=== PATIENT | male | born 1955 | race Caucasian/White ===

== ENCOUNTER 2022-12-27 10:15 | Emergency (ER) | payer MEDICARE, SELFPAY ==
--- NOTE | ~2022-12-27 | CT_ITS ---
EXAMINATION: CT ANGIOGRAM CHEST CT ANGIOGRAM NECK CLINICAL INFORMATION: Acute chest and neck pain. COMPARISON: None available. TECHNIQUE: Multiple axial images were obtained through the neck as well as the chest after the administration of 70 mL of Omnipaque 350 intravenous contrast. Extensive vascular post-processing including two-dimensional and three-dimensional reformatted images were created and reviewed on an independent workstation. This CT examination was performed using dose optimization techniques as appropriate, variously including the following: *Automated exposure control *Adjustment of mA and/or kV according to patient size (this includes techniques or standardized protocols for targeted exams where dose is matched to indication/reason for exam; i.e. extremities or head) *Use of iterative reconstruction technique DLP: 454 mGy-cm CTA CHEST: LUNGS: The lungs are clear with no evidence of inflammation or nodules. MEDIASTINUM: No mediastinal or hilar lymphadenopathy is seen. The thyroid is unremarkable. VASCULAR: The thoracic aorta appears normal without evidence of aneurysm, dissection or intramural ulcer. A normal two-vessel branching pattern of the aortic arch is seen with a common trunk involving the innominate and left carotid. PLEURA: There is no pleural effusion. No pleural mass or thickening. AXILLA: No lymphadenopathy. UPPER ABDOMEN: Spleen is enlarged measuring at least 13 cm in greatest length. Hepatomegaly is suspected with mildly nodular liver border and decreased attenuation suggesting hepatic steatosis. No adrenal masses are seen. The visualized pancreas appears normal. A benign 0.6 cm left upper pole Bosniak class I renal cyst is noted which requires no additional imaging or follow up. No solid renal masses are seen. OSSEOUS STRUCTURES: Unremarkable. CTA NECK: There is a two-vessel branching pattern of the aortic arch with a common trunk involving the brachiocephalic and left carotid. The great vessels are widely patent including both internal carotid arteries and the carotid bifurcations. There is no evidence of a carotid artery dissection or stenosis. The parotid glands are homogeneous in attenuation. Submandibular glands are normal. No contour abnormality or pathologic enhancement is seen within the oral cavity or pharyngeal mucosal space. No retropharyngeal fluid collection is seen. The parapharyngeal fat is preserved. No extramucosal soft tissue mass or fluid collection is seen. No suspicious cervical lymph nodes are identified by size criteria, enhancement characteristics, or morphology. Some mildly prominent level II-B lymph nodes are seen bilaterally the largest measuring 7 mm in short axis dimension on the right (8:124) The thyroid gland appears normal. The partially visualized mastoid air cells and visualized portions of the paranasal sinuses are well-aerated. Mild cervical spondylosis with degenerative changes at C6-C7. There are no destructive lesions within the osseous structures. CT/CT angio chest aorta IMPRESSION: 1. No evidence of an aortic or carotid dissection. A cause for the patient's acute chest and neck pain has not been found. 2. Incidental note made of hepatosplenomegaly and probable hepatic steatosis with mildly nodular liver border. Fleischner guidelines were followed.
--- NOTE | 2022-12-27 10:25 | ECG_ITS ---
Test Reason : CHEST PAIN Blood Pressure : / mmHG Vent. Rate : 084 BPM Atrial Rate : 084 BPM P-R Int : 144 ms QRS Dur : 094 ms QT Int : 370 ms P-R-T Axes : 000 136 152 degrees QTc Int : 437 ms Poor data quality, interpretation may be adversely affected Suspect limb lead reversal, interpretation assumes no reversal Normal sinus rhythm Lateral infarct , age undetermined Inferior infarct , age undetermined Abnormal ECG No previous ECGs available Referred By: Zhou Elizabeth Electronically Signed By:NUNU RANDOLPH MD
[2022-12-27 10:43] LABS: MANUAL DIFF FLAG NO
[2022-12-27 10:50] VITALS: BP 140/75; PULSE 80; O2SAT 99; BMI 30.1
[2022-12-27 10:54] LABS: INTERNATIONAL NORM RATIO 1.1 (0.9-1.1); Prothrombin Time 13.3 SEC (11.1-13.3)
[2022-12-27 10:56] LABS: Basophils Percent Auto 0.4 % (0-2); Eosinophils Absolute Auto 0.1 X10*3/uL (0.0-0.4); Eosinophils Percent Auto 0.7 % (0-4); Hematocrit 43.5 % (42.0-52.0); Hemoglobin 14.7 g/dl (14.0-18.0); Imm Gran Abs Auto 0.08 X10*3/uL (0.00-0.03); Imm Gran Pct Auto 0.7 % (0.0-0.4); Lymphocytes Absolute Auto 1.5 X10*3/uL (1.2-4.9); Lymphocytes Percent Auto 14.1 % (20-40); Mean Corpuscular HGB Conc 33.8 g/dl (31.0-36.0); Mean Corpuscular Hemoglobin 27.3 pg (27.0-33.0); Mean Corpuscular Volume 80.9 fL (80.0-98.0); Monocytes Absolute Auto 0.7 X10*3/uL (0.1-1.2); Monocytes Percent Auto 6.7 % (2-11); Neutrophils Absolute Auto 8.3 x10*3/uL (2.0-8.3); Neutrophils Percent Auto 77.4 % (45-73); Platelet Count 235 X10*3/uL (160-400); Red Blood Count 5.38 X10*6/uL (4.60-5.80); Red Cell Distribution Width 13.9 % (11.0-16.0); White Blood Count 10.7 X10*3/uL (4.8-10.8)
[2022-12-27 10:57] LABS: Partial Thromboplastin Time 33.5 SEC (26.0-36.4)
[2022-12-27 10:59] LABS: Anion Gap 14 (12-20); Blood Urea Nitrogen 34 mg/dL (9-16); Calcium 10.1 mg/dL (8.4-10.2); Carbon Dioxide 27 mmol/L (22-29); Chloride 99 mmol/L (96-108); Estimated Glomerular Filt Rate 44; Glucose Random 212 mg/dL (60-115); Potassium 3.8 mmol/L (3.3-5.1); Sodium 136 mmol/L (135-145)
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
[2022-12-27 11:09] LABS: Glucose, Whole Blood 187 mg/dL (60-115)
[2022-12-27 11:10] LABS: Troponin-I High Sensitivity 3.7 ng/L (<3.5-35.0)
[2022-12-27 11:16] VITALS: BP 125/72; PULSE 81; RESP 17; TEMP 37.1; O2SAT 96
--- NOTE | 2022-12-27 11:38 | PC.NURSE ---
problem with giving Morphine on time due to issue with PICS. once resolved will give mediation
[2022-12-27] MEDS: iohexoL 350 MG/ML 100 ML INFUS..BTL 70 ML IV (11:42)
[2022-12-27] MEDS: Morphine Sulfate 4 MG/ML CARTRIDGE IVPUSH (11:50)
--- NOTE | 2022-12-27 12:24 | PHA.MEDREC ---
Pharmacy Consult ? Medication Reconciliation Pharmacy has completed the medication reconciliation. Patient with rx bottles at bedside, Azalea Holly spoke directly with patient
[2022-12-27] MEDS: oxyCODONE HCl Immed Release 5 MG TABLET 10 MG PO (15:43)
== END 2022-12-27 16:04 | disposition home or self-care (01) ==
PROVIDERS: Emergency Provider Emergency Medicine
DX: R07.9 Chest pain, unspecified (principal); M54.2 Cervicalgia; R94.4 Abnormal results of kidney function studies; R16.0 Hepatomegaly, not elsewhere classified; E11.9 Type 2 diabetes mellitus without 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s; I10 Essential (primary) hypertension; E78.5 Hyperlipidemia, unspecified; F12.90 Cannabis use, unspecified, uncomplicated; Z79.4 Long term (current) use of insulin; Z79.899 Other long term (current) drug therapy
CPT/HCPCS: 36415; 71275; 80048; 82947; 84484; 85025; 85610; 85730; 93005; 96374; 99284; 99285; J2270; Q9967

== ENCOUNTER → 2022-12-27 10:25 | Outpatient (BNV) | payer MEDICARE, SELFPAY | PROVIDERS: Emergency Provider Emergency Medicine; Visit Provider Internal Medicine Cardiovascular Disease | DX: R07.9 Chest pain, unspecified (principal) | CPT/HCPCS: 93010 ==

== ENCOUNTER 2023-03-12 17:47 | Emergency (ER) | payer MEDICARE, MEDICAID, SELFPAY ==
[2023-03-12 17:56] VITALS: BP 123/68; BP 140/80; PULSE 76; PULSE 80; RESP 18; TEMP 36.7; O2SAT 96; O2SAT 98; BMI 30.9
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
--- NOTE | 2023-03-12 19:02 | PC.NURSE ---
patient ambulated to bathroom with steady gait
== END 2023-03-12 20:28 | disposition home or self-care (01) ==
PROVIDERS: Emergency Provider Emergency Medicine
DX: S13.4XXA Sprain of ligaments of cervical spine, initial encounter (principal); S00.93XA Contusion of unspecified part of head, initial encounter; R51.9 Headache, unspecified; M54.2 Cervicalgia; V43.52XA Car driver injured in collision with other type car in traffic accident, initial encounter; Y93.9 Activity, unspecified; Y92.410 Unspecified street and highway as the place of occurrence of the external cause; Y99.9 Unspecified external cause status
CPT/HCPCS: 70450; 72125; 99284

== ENCOUNTER 2023-07-24 12:29 | Outpatient (REF) | payer MEDICARE, MEDICAID, SELFPAY ==
--- NOTE | ~2023-07-24 | XR_ITS ---
EXAMINATION: XR KNEE, LEFT CLINICAL INFORMATION: Medial left knee pain after twisting knee 3 days ago COMPARISON: None available. TECHNIQUE: Four views of the left knee. FINDINGS: The tricompartment joint space is maintained normal. There is calcification of the menisci. No bony erosive changes, osteophytes or loose body seen. No abnormal joint effusion. Small anterior superior patellar enthesophyte. XR/XR knee LT 3V IMPRESSION: 1. No acute fracture or dislocation. 2. Chondrocalcinosis. 3. Small anterior superior patellar enthesophyte.
== END 2023-07-24 12:30 | disposition home or self-care (01) ==
LOC: HO.HHCX 12:29
PROVIDERS: Visit Provider Emergency Medicine
DX: M25.562 Pain in left knee (principal)
CPT/HCPCS: 73562

== ENCOUNTER 2023-08-16 15:11 | Outpatient (REF) | payer OTHER, SELFPAY ==
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
== END 2023-08-16 15:12 | disposition home or self-care (01) ==
LOC: HO.HHCX 15:11
PROVIDERS: Visit Provider Internal Medicine
DX: M54.50 Low back pain, unspecified (principal); G89.29 Other chronic pain
CPT/HCPCS: 72100

== ENCOUNTER 2023-08-20 12:02 | Outpatient (REF) | payer OTHER, SELFPAY | END 2023-08-20 12:03 | disposition home or self-care (01) | LOC: HO.HOSX 12:02 | PROVIDERS: Visit Provider Orthopaedic Surgery | DX: Z13.89 Encounter for screening for other disorder (principal) ==

== ENCOUNTER 2023-09-24 08:26 | Outpatient (REF) | payer OTHER, SELFPAY ==
[2023-09-24 14:50] LABS: MANUAL DIFF FLAG NO
[2023-09-24 14:55] LABS: Basophils Absolute Auto 0.1 X10*3/uL (0.0-0.2); Basophils Percent Auto 0.9 % (0-2); Eosinophils Absolute Auto 0.3 X10*3/uL (0.0-0.4); Eosinophils Percent Auto 3.2 % (0-4); Hematocrit 49.4 % (42.0-52.0); Hemoglobin 16.7 g/dl (14.0-18.0); Imm Gran Abs Auto 0.03 X10*3/uL (0.00-0.03); Imm Gran Pct Auto 0.4 % (0.0-0.4); Lymphocytes Absolute Auto 2.2 X10*3/uL (1.2-4.9); Lymphocytes Percent Auto 28.3 % (20-40); Mean Corpuscular HGB Conc 33.8 g/dl (31.0-36.0); Mean Corpuscular Volume 82.7 fL (80.0-98.0); Mean Platelet Volume 11.5 fL (9.4-12.4); Monocytes Absolute Auto 0.7 X10*3/uL (0.1-1.2); Monocytes Percent Auto 8.9 % (2-11); NRBC Pct Auto 0.5 /100WBC (0.0-0.2); Neutrophils Absolute Auto 4.6 x10*3/uL (2.0-8.3); Neutrophils Percent Auto 58.3 % (45-73); Platelet Count 225 X10*3/uL (160-400); Red Blood Count 5.97 X10*6/uL (4.60-5.80); Red Cell Distribution Width 13.2 % (11.0-16.0); White Blood Count 7.9 X10*3/uL (4.8-10.8)
[2023-09-24 15:16] LABS: Alanine Aminotransferase 59 U/L (0-40); Albumin Level 4.3 g/dL (3.5-5.0); Alkaline Phosphatase 123 U/L (39-117); Anion Gap 16 (12-20); Aspartate Amino Transferase 41 U/L (5-37); Bilirubin Total 0.6 mg/dL (0.0-1.0); Blood Urea Nitrogen 24 mg/dL (9-16); Calcium 10.1 mg/dL (8.4-10.2); Carbon Dioxide 26 mmol/L (22-29); Chloride 99 mmol/L (96-108); Cholesterol 157 mg/dL (<200); Estimated Glomerular Filt Rate 49; Glucose Random 239 mg/dL (60-115); HDL Cholesterol 59 mg/dL (>40); LDL Cholesterol Calculated 78 mg/dL (<100); Potassium 3.8 mmol/L (3.3-5.1); Sodium 137 mmol/L (135-145); Total Protein 8.5 g/dL (6.5-8.0); Triglycerides 104 mg/dL (<150)
[2023-09-24 15:26] LABS: TSH reflex Free T4 2.92 uIU/mL (0.32-4.0)
[2023-09-24 15:43] LABS: Folate 7.6 ng/mL (> or = 4.0); Vitamin B12 984 pg/mL (200-900)
[2023-09-25 04:24] LABS: HIV AB/AG Nonreactive (Nonreactive); HIV Num 1 0.05 S/CO (0.00-0.99); ~HepC Num1 0.14 S/CO (0.00-0.79); ~Hepatitis C Antibody Nonreactive (Nonreactive)
== END 2023-09-24 08:27 | disposition home or self-care (01) ==
LOC: HO.CHCLDS 08:26
PROVIDERS: Visit Provider Family Medicine
DX: Z13.9 Encounter for screening, unspecified (principal); Z11.4 Encounter for screening for human immunodeficiency virus [HIV]; E11.9 Type 2 diabetes mellitus without 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s; E03.9 Hypothyroidism, unspecified; Z79.4 Long term (current) use of insulin
CPT/HCPCS: 36415; 80053; 80061; 82607; 82746; 84443; 85025; 86803; 87389

== ENCOUNTER 2023-10-01 08:16 | Outpatient (REF) | payer OTHER, SELFPAY ==
[2023-10-01 14:58] LABS: Gamma Glutamyl Transpeptidase 353 U/L (11-51); Iron 76 mcg/dL (45-160); Percent Iron Saturation 25 % (15-50); Phosphorus 3.1 mg/dL (2.7-4.5); Total Iron Binding Capacity 305 mcg/dL (228-428); Unsaturated Iron Binding 229 ug/dL
[2023-10-01 15:14] LABS: Vitamin D 25-OH Total 19.2 ng/mL (>30)
[2023-10-01 15:27] LABS: Creatinine Urine 43.57 mg/dL; Total Protein Urine Random < 7 mg/dL (<12)
[2023-10-02 09:11] LABS: HBS Num1 14.84 mIU/mL (0-7.99); HBc Num1 0.07 S/CO (0.00-0.79); HBsAGNum1 0.36 S/CO (0.00-0.99); Hepatitis B Core Antibody Nonreactive (Nonreactive); Hepatitis B Surface Antigen Negative (Negative); ~Hepatitis B Surface Antibody REACTIVE (Nonreactive)
== END 2023-10-01 08:17 | disposition home or self-care (01) ==
LOC: HO.CHCLDS 08:16
PROVIDERS: Visit Provider Family Medicine
DX: R74.01 Elevation of levels of liver transaminase levels (principal); N19 Unspecified kidney failure
CPT/HCPCS: 36415; 82306; 82570; 82977; 83540; 83970; 84100; 84156; 86704; 86706; 87340

== ENCOUNTER 2023-10-11 07:46 | Outpatient (REF) | payer OTHER, SELFPAY ==
--- NOTE | ~2023-10-11 | US_ITS ---
EXAMINATION: US COMPLETE ABDOMEN WITH LIVER ELASTOGRAPHY CLINICAL INFORMATION: Transaminitis. COMPARISON: None available. TECHNIQUE: Real-time imaging of the abdominal viscera. Noninvasive ultrasound liver fibrosis assessment is performed using Jose ElastPQ point quantification shear wave elastography (2D-SWE) with a C5-2 MHz transducer. Multiple elastography samples are obtained. FINDINGS: PANCREAS: Normal. The visualized pancreatic head and body are normal in appearance. The remainder of the pancreas is obscured from visualization by the overlying bowel gas. ABDOMINAL AORTA: The proximal, middle, and distal aortic segments are normal in caliber. INFERIOR VENA CAVA: Visualized portions are normal. LIVER: Imaging limited by body habitus. The liver demonstrates normal size, contour and generally increased echogenicity. No focal lesion or intrahepatic biliary duct dilatation. The right lobe measures 14.9 cm in length. The left lobe measures 9.0 cm in length. Portal flow is towards the liver (hepatopetal). Shear wave liver elastography median stiffness is 1.88 m/s (reference: normal median stiffness is 1.3 m/s or less). IQR/median stiffness to assess sampling precision is 0.13 (reference: good quality data set is IQR/median stiffness of 0.15 or less). GALLBLADDER: Towards the neck portion, there is focal adenomyomatosis. The gallbladder is physiologically distended without evidence of stones, sludge, polyps, wall thickening or pericholecystic fluid. COMMON BILE DUCT: Normal in caliber measuring 0.2 cm in diameter. RIGHT KIDNEY: Normal. No hydronephrosis. No renal calculi or focal parenchymal lesions. The kidney measures 8.7 cm in maximum dimension. LEFT KIDNEY: At the lower pole, 7 mm and 3 mm benign, simple cysts are seen, for which no imaging follow-up is recommended. No hydronephrosis. No renal calculi or focal parenchymal lesions. The kidney measures 9.6 cm in maximum dimension. SPLEEN: No focal finding. The spleen measures 13.2 cm in maximum dimension. FREE FLUID: None. US/US abdomen comp w elastography IMPRESSION: 1. There is generalized increase in hepatic echotexture, consistent with fatty infiltration or hepatocellular disease. Please correlate clinically. No focal hepatic mass or intrahepatic biliary dilatation is seen. 2. Liver elastography: Measurements are suggestive of compensated advanced chronic liver disease but need further test for confirmation. 3. There is gallbladder adenomyomatosis. 4. There is mild splenomegaly. REFERENCE: Society of Radiologists in Ultrasound Liver Stiffness Thresholds (2020): LIVER STIFFNESS THRESHOLDS: *Liver Stiffness equal or less than 1.3 m/s: High probability of being normal. *Liver Stiffness less than 1.7 m/s: In the absence of other known clinical signs, rules out compensated advanced chronic liver disease. *Liver Stiffness 1.7-2.1 m/s: Suggestive of compensated advanced chronic liver disease but need further test for confirmation. *Liver Stiffness over 2.1 m/s: Rules in compensated advanced chronic liver disease. *Liver Stiffness over 2.4 m/s: Suggestive of clinically significant portal hypertension. QUALITY OF DATA SET: *IQR/Median value equal or less than 0.15 implies a quality data set. *IQR/Median value over 0.15 implies a poor quality data set. SIGNIFICANT CHANGE FROM PRIOR EXAM: Significant change if liver stiffness measurement is 10% or greater from prior exam. OTHER CONSIDERATIONS: The stage of liver fibrosis may be overestimated in the setting of acute hepatitis, liver inflammation, elevated liver function tests, hepatic vascular congestion, obstructive cholestasis, non-fasting state, and infiltrative diseases such as amyloidosis and lymphoma. In some patients with NAFLD, the liver stiffness thresholds for compensated advanced chronic liver disease may be lower. In causes other than viral hepatitis and NAFLD, liver stiffness thresholds are not well established.
== END 2023-10-11 07:47 | disposition home or self-care (01) ==
LOC: HO.US 07:46
PROVIDERS: PCP Family Medicine; Visit Provider Family Medicine
DX: R74.01 Elevation of levels of liver transaminase levels (principal); D13.5 Benign neoplasm of extrahepatic bile ducts; R16.1 Splenomegaly, not elsewhere classified
CPT/HCPCS: 76700; 76981

== ENCOUNTER 2023-11-06 09:11 | Outpatient (REF) | payer OTHER, SELFPAY ==
[2023-11-08 22:33] LABS: TS Negative Control Passed; TS Panel A 0; TS Panel B 0; TS Positive Control Passed; TSpotTB Negative (Negative)
== END 2023-11-06 09:12 | disposition home or self-care (01) ==
LOC: HO.CHCLDS 09:11
PROVIDERS: Visit Provider Family Medicine
DX: Z11.1 Encounter for screening for respiratory tuberculosis (principal)
CPT/HCPCS: 36415; 86481

== ENCOUNTER 2023-11-15 09:46 | Outpatient (AMB) | payer OTHER, SELFPAY ==
--- NOTE | 2023-11-15 10:22 | A.OFFVIS_ITS ---
Intake Visit Reasons: history of prostate cancer Intake Note: New Patient is present for Hx of Prostate Cancer/HX of Prostectomy Archeologist Required: Yes Archeologist Language: Congolese Information Interpreted: clinical only Allergies No Known Allergies Allergy (Verified 11/15/23 10:23) HPI Comments Details: Feliciano is a pleasant Congolese-speaking male. He is a patient of . He has seen for the following urologic conditions - prostate cancer - erectile dysfunction associated with prostate cancer and diabetes Congolese translation provided in office by qualified medical services manager Prostate cancer Prostatectomy 2004 Minimal issues with urinary control No recent PSA on file Erectile dysfunction Progressive diabetes No prior use medications Trial daily tadalafil with on demand PFSH Medical History History of prostate cancer Hypothyroidism Psoriasis Type 2 diabetes mellitus without 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, with prison current use of insulin pump Chronic kidney disease Diabetes Hypertension Surgical History Hx of radical prostatectomy Social History Patient Tobacco Use Status: Former Tobacco user Substance Use Type: Marijuana Review of Systems Const Denies chills and Denies fever(s) Card Reports no additional complaints and Denies syncope Resp Denies cough GI Denies abdominal pain and Denies heartburn Reports as per HPI and Denies change in libido Neuro Denies syncope Psych Denies change in libido Endo Denies change in libido Physical Exam Const General: cooperative, healthy appearing, comfortable and no acute distress Orientation/consciousness: patient oriented x3 HEENT Face and sinus: Yes normal facial exam Mouth: moist mucous membranes Neck Neck: Yes normal visual inspection, Yes full ROM and Yes trachea midline Chest Chest palpation & inspection: normal inspection of the chest Resp Effort & Inspection: normal respiratory effort, able to speak in complete sentences and no respiratory distress GI Inspection: Yes normal to inspection Back/Spine/Pelvis Cervical Spine: normal cervical lordosis Thoracic/Lumbar Spine: thoracic and lumbar spine normal to inspection Skin General skin exam: no rashes or lesions noted Neuro General: patient oriented x3, gait normal, tone normal and moves all extremities Extrem General: Yes normal to inspection and Yes capillary refill normal Assessment & Plan Assessment & Plan (1) Erectile dysfunction associated with type 2 diabetes mellitus: Code(s): E11.69 - Type 2 diabetes mellitus with other specified 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; N52.1 - Erectile dysfunction due to diseases classified elsewhere Category: Medical (2) Prostate cancer: Code(s): C61 - Malignant neoplasm of prostate Category: Medical Plan Trial tadalafil Three-month follow-up Orders: Orders Prostate Specific Antigen Today C61 - Malignant neoplasm of prostate, E11.69 - Type 2 diabetes mellitus with other specified 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, N52.1 - Erectile dysfunction due to diseases classified elsewhere Medications: New tadalafil On demand medication take 60 minutes before intended activity 20 mg PO ONCE 30 days PRN 30 tabs 0RF sexual activity E11.69 - Type 2 diabetes mellitus with other specified 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, N52.1 - Erectile dysfunction due to diseases classified elsewhere tadalafil 5 mg PO DAILY 90 days 90 tabs 0RF sexual activity E11.69 - Type 2 diabetes mellitus with other specified 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, N52.1 - Erectile dysfunction due to diseases classified elsewhere Patient Instructions: Imaging studies, laboratory and physical exam results were discussed and reviewed in detail. No major barriers to patient understanding were identified. An opportunity to ask questions regarding the treatment plan was provided. All questions were answered. The patient expressed understanding and agreement with the above treatment plan. The patient is aware they should contact our office by phone for worsening of their current condition or the appearance of new urologic symptoms. Compliance is encouraged with any medications and followup testing that is ordered. It is a privilege to participate in the urologic care of your patient. If you have any questions or concerns regarding treatment for the above conditions, or other urologic issues, please do not hesitate to contact me. The office telephone contact is [phone]. This note is constructed using voice recognition software. While every effort has been made to ensure accuracy field party manager errors may have been included. Yours sincerely, Dr Timoteo Richardson MD, LILIB[facility] Urology Providers of Expert, Compassionate Care for the Genitourinary System Coding Level of Care Code New Pt Level 4 (90356) Diagnoses Erectile dysfunction associated with type 2 diabetes mellitus E11.69; N52.1 Prostate cancer C61
== END 2023-11-15 10:43 | disposition home or self-care (01) ==
PROVIDERS: PCP Family Medicine; Visit Provider Urology
DX: E11.69 Type 2 diabetes mellitus with other specified 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 (principal); N52.1 Erectile dysfunction due to diseases classified elsewhere; C61 Malignant neoplasm of prostate
CPT/HCPCS: 99204

== ENCOUNTER → 2023-11-15 09:46 | Outpatient (BNVA) | payer OTHER, SELFPAY | PROVIDERS: PCP Family Medicine; Visit Provider Urology | DX: E11.69 Type 2 diabetes mellitus with other specified 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 (principal); N52.1 Erectile dysfunction due to diseases classified elsewhere; C61 Malignant neoplasm of prostate | CPT/HCPCS: 99202 ==

== ENCOUNTER 2024-02-13 13:34 | Outpatient (AMB) | payer OTHER, SELFPAY ==
--- NOTE | 2024-02-13 13:35 | MHC.OFFVIS ---
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 He is a patient of . He has seen for the following urologic conditions - prostate cancer - erectile dysfunction associated with prostate cancer and diabetes [place] translation provided in office by qualified medical delivery driver Follow-up Trial daily 5 mg tadalafil with on demand 20 mg Partial effect Increase daily dosage to 10 mg Also with concerns about urinating. Tamsulosin given Have problems withdrawing his foreskin - clotrimazole given Three-month follow-up Prostate cancer Prostatectomy 2004 Minimal issues with urinary control No recent PSA on file Erectile dysfunction Progressive diabetes No prior use medications PFSH Medical History History of prostate cancer Hypothyroidism Psoriasis Type 2 diabetes mellitus without 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, with detention current use of insulin pump Chronic kidney disease Diabetes Hypertension Surgical History Hx of radical prostatectomy Social History Patient Tobacco Use Status: Former Tobacco user Substance Use Type: Marijuana Review of Systems Const Denies chills and Denies fever(s) Card Reports no additional complaints and Denies syncope Resp Denies cough GI Denies abdominal pain and Denies heartburn Reports as per HPI and Denies change in libido Neuro Denies syncope Psych Denies change in libido Endo Denies change in libido Physical Exam Const General: cooperative, healthy appearing, comfortable and no acute distress Orientation/consciousness: patient oriented x3 HEENT Face and sinus: Yes normal facial exam Mouth: moist mucous membranes Neck Neck: Yes normal visual inspection, Yes full ROM and Yes trachea midline Chest Chest palpation & inspection: normal inspection of the chest Resp Effort & Inspection: normal respiratory effort, able to speak in complete sentences and no respiratory distress GI Inspection: Yes normal to inspection Back/Spine/Pelvis Cervical Spine: normal cervical lordosis Thoracic/Lumbar Spine: thoracic and lumbar spine normal to inspection Skin General skin exam: no rashes or lesions noted Neuro General: patient oriented x3, gait normal, tone normal and moves all extremities Extrem General: Yes normal to inspection and Yes capillary refill normal Telehealth Telehealth Location of provider rendering services: practice address Location of patient: address on file Patient Identification confirmed using: Name, : Yes Telehealth method: voice only Patient verbally consented to treatment: Yes Patient verbally consented to billing insurance company: Yes Patient informed of any privacy concerns related to visit: Yes Assessment & Plan Assessment & Plan (1) Phimosis: Code(s): N47.1 - Phimosis Category: Medical (2) Erectile dysfunction associated with type 2 diabetes mellitus: Code(s): E11.69 - Type 2 diabetes mellitus with other specified 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; N52.1 - Erectile dysfunction due to diseases classified elsewhere Category: Medical (3) Prostate cancer: Code(s): C61 - Malignant neoplasm of prostate Category: Medical (4) Weak urinary stream: Code(s): R39.12 - Poor urinary stream Category: Medical Plan Trial high-dose daily tadalafil Flomax Clotrimazole Three-month follow-up Medications: New clotrimazole-betamethasone 1-0.05 % Apply thin coat 2 times per day 1 appl topical BID 45 grams 0RF 4 weeks N47.1 - Phimosis, N48.1 - Balanitis tamsulosin 0.4 mg PO BEDTIME 90 caps 1RF 90 days N13.8 - Other obstructive and reflux uropathy, N40.1 - Benign prostatic hyperplasia with lower urinary tract symptoms, R39.12 - Poor urinary stream Changed From tadalafil 5 mg PO DAILY 90 days 90 tabs 0RF sexual activity E11.69 - Type 2 diabetes mellitus with other specified 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, N52.1 - Erectile dysfunction due to diseases classified elsewhere To tadalafil 10 mg PO DAILY 90 tabs 0RF sexual activity 90 days E11.69 - Type 2 diabetes mellitus with other specified 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, N52.1 - Erectile dysfunction due to diseases classified elsewhere From tadalafil On demand medication take 60 minutes before intended activity 20 mg PO ONCE 30 days PRN 30 tabs 0RF sexual activity E11.69 - Type 2 diabetes mellitus with other specified 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, N52.1 - Erectile dysfunction due to diseases classified elsewhere To tadalafil May take up to 2 tabs medication take 60 minutes before intended activity 20 mg PO ONCE PRN 30 tabs 1RF sexual activity 30 days E11.69 - Type 2 diabetes mellitus with other specified 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, N52.1 - Erectile dysfunction due to diseases classified elsewhere Patient Instructions: Imaging studies, laboratory and physical exam results were discussed and reviewed in detail. No major barriers to patient understanding were identified. An opportunity to ask questions regarding the treatment plan was provided. All questions were answered. The patient expressed understanding and agreement with the above treatment plan. The patient is aware they should contact our office by phone for worsening of their current condition or the appearance of new urologic symptoms. Compliance is encouraged with any medications and followup testing that is ordered. It is a privilege to participate in the urologic care of your patient. If you have any questions or concerns regarding treatment for the above conditions, or other urologic issues, please do not hesitate to contact me. The office telephone contact is [phone]. This note is constructed using voice recognition software. While every effort has been made to ensure accuracy child and family therapist errors may have been included. Yours sincerely, Dr Timoteo Richardson MD, LILIB[facility] - Urology Providers of Expert, Compassionate Care for the Genitourinary System Coding Level of Care Code Est Pt Level 4 (00611) Diagnoses Phimosis N47.1 Erectile dysfunction associated with type 2 diabetes mellitus E11.; N52.1 Prostate cancer C61 Weak urinary stream R39.12
== END 2024-02-13 14:02 | disposition home or self-care (01) ==
LOC: HO.HUSH 13:34
PROVIDERS: PCP Family Medicine; Visit Provider Urology
DX: N47.1 Phimosis (principal); E11.69 Type 2 diabetes mellitus with other specified 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; N52.1 Erectile dysfunction due to diseases classified elsewhere; C61 Malignant neoplasm of prostate; R39.12 Poor urinary stream
CPT/HCPCS: 99214

== ENCOUNTER → 2024-02-13 13:34 | Outpatient (BNVA) | payer OTHER, SELFPAY | PROVIDERS: PCP Family Medicine; Visit Provider Urology | DX: C61 Malignant neoplasm of prostate (principal); N47.1 Phimosis; E11.69 Type 2 diabetes mellitus with other specified 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; N52.1 Erectile dysfunction due to diseases classified elsewhere; N40.1 Benign prostatic hyperplasia with lower urinary tract symptoms; R39.12 Poor urinary stream; N48.1 Balanitis; N13.8 Other obstructive and reflux uropathy | CPT/HCPCS: 99212 ==

== ENCOUNTER 2024-02-26 14:55 | Inpatient (IN) | payer OTHER, SELFPAY ==
[2024-02-26] VITALS (12 sets, daily range): BP systolic 99–193; BP diastolic 47–94; PULSE 85–130; RESP 13–20; TEMP -17.7–39.7; O2SAT 94–98; BMI 28.6
--- NOTE | ~2024-02-26 | CT_ITS ---
EXAMINATION: CT ABDOMEN AND PELVIS WITH CONTRAST CLINICAL INFORMATION: Low back pain, periumbilical pain, nausea and vomiting COMPARISON: August 26, 2019 TECHNIQUE: Multidetector volumetric images were obtained from the superior aspect of the liver through the pubic symphysis following administration 85 mL of Omnipaque 350 intravenous contrast. Sagittal and coronal reformatted images were obtained on the technologist's workstation. Oral contrast: No This CT examination was performed using dose optimization techniques as appropriate, variously including the following: *Automated exposure control *Adjustment of mA and/or kV according to patient size (this includes techniques or standardized protocols for targeted exams where dose is matched to indication/reason for exam; i.e. extremities or head) *Use of iterative reconstruction technique DLP: 484 mGy-cm FINDINGS: LUNG BASES: The visualized lung bases are unremarkable. LIVER, GALLBLADDER, AND BILIARY TREE: Liver revealed mild fatty infiltration. No intrahepatic masses or ductal dilatation seen. No evidence of cirrhosis. The gallbladder is unremarkable with no evidence of radiopaque gallstones, gallbladder wall thickening, or obvious pericholecystic inflammatory changes. PANCREAS: Unremarkable. SPLEEN: Spleen globally enlarged, measured 15 cm. ADRENAL GLANDS: Unremarkable. KIDNEYS AND URETERS: Small cortical cysts seen in the left kidney and there is scar in the cortex of left kidney. Right kidney is unremarkable. There is no hydroureteronephrosis. BLADDER: Unremarkable. GASTROINTESTINAL TRACT: The small and large bowel are unremarkable. The appendix is unremarkable. ABDOMINAL WALL: Small fat-containing umbilical hernia. LYMPH NODES: Normal. VASCULAR: Unremarkable. PELVIC VISCERA: Unremarkable. OSSEOUS STRUCTURES: Unremarkable. CT/CT abdomen pelvis w IV con IMPRESSION: 1. No explanation for abdominal pain. 2. Splenomegaly. 3. Mild fatty infiltration of the liver. 4. Small fat-containing umbilical hernia. Fleischner guidelines were followed. Electronically signed by: Cara Pretty MD 02/26/2024 06:51 PM EDT
--- NOTE | 2024-02-26 15:04 | ED_ITS ---
HPI - General Adult General Chief complaint: General Medical Stated complaint: Vomiting, shaking Time Seen by Provider: 02/26/24 15:50 Related Data Home Medications ?Medication ?Instructions ?Recorded ?Confirmed amlodipine 10 mg tablet 10 mg PO DAILY 12/27/22 02/26/24 atorvastatin 10 mg tablet 10 mg PO DAILY 12/27/22 02/26/24 chlorthalidone 25 mg tablet 25 mg PO DAILY 12/27/22 02/26/24 insulin aspart U-100 100 unit/mL 6 unit subcut TID 12/27/22 02/26/24 (3 mL) subcutaneous pen (Novolog FlexPen U-100 Insulin aspart) insulin glargine 100 unit/mL 68 unit subcut BEDTIME 12/27/22 02/26/24 subcutaneous solution (Lantus U-100 Insulin) levothyroxine 50 mcg tablet 50 mcg PO DAILY@0600 12/27/22 02/26/24 losartan 100 mg tablet 100 mg PO DAILY 12/27/22 02/26/24 metformin 850 mg tablet 850 mg PO BID 12/27/22 02/26/24 sertraline 100 mg tablet 150 mg PO DAILY 12/27/22 02/26/24 flash glucose sensor (FreeStyle #1 ea 02/13/24 Marlen 2 Sensor kit) lancets 33 gauge (TRUEplus Lancets) #100 ea 02/13/24 omeprazole 20 mg capsule,delayed 20 mg PO DAILY 02/13/24 02/26/24 release acetaminophen 650 mg 650 mg PO Q6H PRN fever or pain 02/26/24 02/26/24 tablet,extended release calcipotriene 0.005 % topical cream 1 appl topical BID 02/26/24 02/26/24 cholecalciferol (vitamin D3) 50 50 mcg PO DAILY 02/26/24 02/26/24 mcg (2,000 unit) capsule (Vitamin D3) dulaglutide 1.5 mg/0.5 mL 1.5 mg subcut WE 02/26/24 02/26/24 [facility] Previous Rx's ?Medication ?Instructions ?Recorded clotrimazole-betamethasone 1 1 appl topical BID 4 weeks #45 02/13/24 %-0.05 % topical cream grams tamsulosin 0.4 mg capsule 0.4 mg PO BEDTIME 90 days #90 caps 02/13/24 Allergies Allergy/AdvReac Type Severity Reaction Status Date / Time No Known Allergies Allergy Verified 02/26/24 15:04 [facility] Past Medical History Medical History History of prostate cancer Hypothyroidism Psoriasis Type 2 diabetes mellitus without 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, 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 Chronic kidney disease Diabetes Hypertension Surgical History Hx of radical prostatectomy Social History Social History Patient Tobacco Use Status: Former Tobacco user Smoked in Last 30 Days: No Use of substances other than those prescribed or required for medical reasons: No Substance Use Type: Marijuana Advance Directives: No Advance Directives Information Provided: No Nutrition Risks: No Nutritional Risk service: No Physical Exam ED Vital Signs: Vital Signs - 24 hr 02/26/24 17:48 02/26/24 18:06 02/26/24 18:25 Temperature 99.1 F 98.4 F Pulse Rate 100 98 95 Respiratory Rate 20 13 Blood Pressure 109/64 99/47 L 102/51 L Pulse Oximetry 94 95 Oxygen Delivery Method Room Air Room Air 02/26/24 18:49 Temperature Pulse Rate 88 Respiratory Rate 16 Blood Pressure 110/54 L Pulse Oximetry Oxygen Delivery Method BMI result Body Mass Index 28.6 Course Course Course Narrative: This is a rapid medical exam performed by Gudelia Antonio PA-C. The patient is a 69-year-old male with a history of diabetes, prostate cancer, oral cancer not on chemotherapy currently pending surgical intervention, presents with acute onset nausea vomiting. On exam, the patient is actively vomiting, ill in appearance, with shaking rigors. We are unable to obtain an oral temperature, he will require a rectal temp. He denies abdominal pain. We will be screening basic labs and a urinalysis. The patient is currently being pending to a room. Reevaluation(s) Reevaluation #1: The patient left without completing their assessment Medications Administered Generic Name Dose Route Start Last Admin Trade Name Freq PRN Reason Stop Dose Admin Atorvastatin Calcium 10 mg 02/27/24 09:00 02/27/24 08:18 Atorvastatin Calcium 10 Mg Tablet PO 10 mg DAILY MARICHUY Administration Enoxaparin Sodium 40 mg 02/26/24 20:00 02/26/24 20:03 Enoxaparin Sodium 40 Mg/0.4 Ml Syringe SUBCUT 40 mg Q24H MARICHUY Administration Ceftriaxone Sodium 2 gm/ 50 mls @ 100 mls/hr 02/26/24 20:00 02/26/24 20:36 Sodium Chloride IV Infused Q24H MARICHUY Infusion Sodium Chloride 1,000 mls @ 125 mls/hr 02/27/24 07:30 02/27/24 15:39 Ns IVCONT 02/27/24 23:29 125 mls/hr .Q8H MARICHUY Administration Insulin Human Lispro 0 unit 02/26/24 21:00 02/27/24 12:58 Insulin Lispro 100 Unit/Ml 3 Ml Vial SUBCUT 2 unit QIDACHS [facility] Administration Protocol Levothyroxine Sodium 50 mcg 02/27/24 06:00 02/27/24 06:26 Levothyroxine Sodium 50 Mcg Tablet PO 50 mcg DAILY@0600 MARICHUY Administration Melatonin 6 mg 02/26/24 19:36 02/26/24 21:29 Melatonin 3 Mg Tablet PO 6 mg BEDTIME PRN Administration Insomnia Nystatin/Triamcinolone Acetonide 1 appl 02/27/24 09:00 02/27/24 08:38 Nystatin/Triamcinolone Cream 15 Gm Tube TOPICAL 1 appl BID MARICHUY Administration Omeprazole 20 mg 02/27/24 06:30 02/27/24 06:26 Omeprazole 20 Mg Capsule.Dr PO 20 mg DAILY@0630 MARICHUY Administration Sertraline HCl 150 mg 02/27/24 09:00 02/27/24 08:18 Sertraline Hcl 50 Mg Tablet PO 150 mg DAILY MARICHUY Administration Sodium Chloride 3 ml 02/27/24 00:00 02/27/24 15:39 0.9 % Sodium Chloride Flush 3 Ml Syringe IVFLUSH Not Given QSHIFT [facility] Tamsulosin HCl 0.4 mg 02/26/24 22:05 02/26/24 23:37 Tamsulosin Hcl 0.4 Mg Capsule PO 0.4 mg BEDTIME MARICHUY Administration Vitamin D 50 mcg 02/27/24 09:00 02/27/24 08:18 Cholecalciferol (Vitamin D3) 25 Mcg Tablet PO 50 mcg DAILY MARICHUY Administration Discontinued Medications Generic Name Dose Route Start Last Admin Trade Name Freq PRN Reason Stop Dose Admin Acetaminophen 975 mg 02/26/24 16:06 02/26/24 16:26 Acetaminophen 325 Mg Tablet PO 02/26/24 16:07 975 mg ONCE ONE Administration Piperacillin Sod/Tazobactam 50 mls @ 100 mls/hr 02/26/24 16:04 02/26/24 18:23 Sod 3.375 gm/ Sodium Chloride IV 02/26/24 16:33 Infused ONCE ONE Infusion Sodium Chloride 2,271 mls @ 2,271 mls/hr 02/26/24 16:06 02/26/24 18:24 Ns 30 ml/kg infuse over 1 hr (2271 ml) 02/26/24 17:05 Infused IV Infusion .Q1H STA Magnesium Sulfate 2 gm in 50 mls @ 150 mls/hr 02/26/24 16:20 02/26/24 18:30 Magnesium Sulfate/H2o IV 02/26/24 16:39 Infused ONCE ONE Infusion Acetaminophen 1,000 mg in 100 mls @ 400 mls/hr 02/26/24 20:08 02/26/24 20:47 Ofirmev IV 02/26/24 20:22 Infused ONCE ONE Infusion Ibuprofen 600 mg 02/26/24 21:25 02/26/24 21:28 Ibuprofen 600 Mg Tablet PO 02/26/24 21:26 600 mg ONCE ONE Administration Insulin Glargine 48 unit 02/26/24 19:48 02/26/24 20:09 Insulin Glargine,Hum.Rec.Anlog 100 Unit/Ml 10 Ml Vial SUBCUT 02/26/24 19:49 48 unit ONCE ONE Administration Iohexol 100 ml 02/26/24 17:24 02/26/24 17:25 Iohexol 350 Mg/Ml 100 Ml Infus..Btl IV 02/26/24 17:25 100 ml ONCE ONE Administration Morphine Sulfate 4 mg 02/26/24 16:07 02/26/24 16:25 Morphine Sulfate 4 Mg/Ml Cartridge IVPUSH 02/26/24 16:08 4 mg ONCE ONE Administration Protocol Ondansetron HCl 4 mg 02/26/24 16:04 02/26/24 16:25 Ondansetron Hcl 4 Mg/2 Ml Vial IVPUSH 02/26/24 16:05 4 mg ONCE ONE Administration Medical Decision Making Lab Data 02/27/24 05:08 02/27/24 05:08 Labs: Lab Results 02/26/24 02/26/24 02/26/24 Range/Units 15:33 16:21 18:49 WBC 9.2 (4.8-10.8) X10*3/uL RBC 5.28 (4.60-5.80) X10*6/uL Hgb 15.1 (14.0-18.0) g/dl Hct 43.1 (42.0-52.0) % MCV 81.6 (80.0-98.0) fL MCH 28.6 (27.0-33.0) pg MCHC 35.0 (31.0-36.0) g/dl RDW 13.2 (11.0-16.0) % Plt Count 207 (160-400) X10*3/uL MPV 9.8 (9.4-12.4) fL Immature Gran % (Auto) 0.4 (0.0-0.4) % Neut % (Auto) 77.6 H (45-73) % Lymph % (Auto) 15.3 L (20-40) % [place] % (Auto) 4.7 (2-11) % Eos % (Auto) 1.5 (0-4) % Baso % (Auto) 0.5 (0-2) % Lymph # (Auto) 1.4 (1.2-4.9) X10*3/uL [place] # (Auto) 0.4 (0.1-1.2) X10*3/uL Eos # (Auto) 0.1 (0.0-0.4) X10*3/uL Baso # (Auto) 0.1 (0.0-0.2) X10*3/uL Abs Immat Gran (auto) 0.04 H (0.00-0.03) X10*3/uL Absolute Neuts (auto) 7.1 (2.0-8.3) x10*3/uL Absolute Nucleated RBC 0.000 (0.0-0.012) X10*3/uL Nucleated RBC % (auto) 0.0 (0.0-0.2) /100WBC PT 13.8 H (10.9-12.4) SEC INR 1.2 H (0.9-1.1) Sodium 140 (135-145) mmol/L Potassium 4.2 (3.3-5.1) mmol/L Chloride 108 (96-108) mmol/L Carbon Dioxide 19 L (22-29) mmol/L Anion Gap 17 (12-20) BUN 23 H (9-16) mg/dL Creatinine 1.36 (0.5-1.4) mg/dL Estim Creat Clear Calc 48.3 Estimated GFR 52 Random Glucose 197 H (60-115) mg/dL Lactic Acid 3.4 H* (0.5-2.0) mmol/L Lactic Acid F/U @ 2Hr 2.0 (0.5-2.0) mmol/L Calcium 10.2 (8.4-10.2) mg/dL Magnesium 1.4 L* (1.6-2.6) mg/dL Total Bilirubin 0.7 (0.0-1.0) mg/dL AST 47 H (5-37) U/L ALT 48 H (0-40) U/L Alkaline Phosphatase 122 H (39-117) U/L Troponin I High Sens < 2.7 (<3.5-35.0) ng/L C-Reactive Protein 1.21 H (< or = 0.50) mg/dL Total Protein 7.8 (6.5-8.0) g/dL Albumin 4.1 (3.5-5.0) g/dL Lipase 31 (8-78) U/L Urine Color Yellow Urine Appearance Cloudy Urine pH 5.5 (5.0-9.0) Ur Specific [place] 1.020 (1.005-1.025) Urine Protein 100 (2+) H (Neg-Trace) mg/dL Urine Glucose (UA) 250 H (Negative) mg/dL Urine Ketones Negative (Negative) mg/dL Urine Blood Moderate (2+) H (Negative) Urine Nitrite Positive H (Negative) Ur Leukocyte Esterase Large (3+) H (Negative) Urine RBC 0-2 (0-2) /HPF Urine WBC 21-50 (0-5) /HPF Ur Squamous Epith Cells 3-5 (0-2) /HPF Urine Bacteria 4+ (None Seen) Hyaline Casts 0-2 (0-2) /LPF Influenza Type A (PCR) NEGATIVE (Negative) Influenza Type B (PCR) NEGATIVE (Negative) RSV RNA Qual (PCR) NEGATIVE (Negative) SARS-CoV-2 RNA (RT-PCR) NEGATIVE (Negative) Discharge Plan Discharge Clinical Impression: Sepsis, Urinary tract infection Patient Disposition: Admitted As Inpatient
[2024-02-26 15:40] LABS: MANUAL DIFF FLAG NO
[2024-02-26 15:42] LABS: Basophils Absolute Auto 0.1 X10*3/uL (0.0-0.2); Basophils Percent Auto 0.5 % (0-2); Eosinophils Absolute Auto 0.1 X10*3/uL (0.0-0.4); Eosinophils Percent Auto 1.5 % (0-4); Hematocrit 43.1 % (42.0-52.0); Hemoglobin 15.1 g/dl (14.0-18.0); Imm Gran Abs Auto 0.04 X10*3/uL (0.00-0.03); Imm Gran Pct Auto 0.4 % (0.0-0.4); Lymphocytes Absolute Auto 1.4 X10*3/uL (1.2-4.9); Lymphocytes Percent Auto 15.3 % (20-40); Mean Corpuscular Hemoglobin 28.6 pg (27.0-33.0); Mean Corpuscular Volume 81.6 fL (80.0-98.0); Mean Platelet Volume 9.8 fL (9.4-12.4); Monocytes Absolute Auto 0.4 X10*3/uL (0.1-1.2); Monocytes Percent Auto 4.7 % (2-11); Neutrophils Absolute Auto 7.1 x10*3/uL (2.0-8.3); Neutrophils Percent Auto 77.6 % (45-73); Platelet Count 207 X10*3/uL (160-400); Red Blood Count 5.28 X10*6/uL (4.60-5.80); Red Cell Distribution Width 13.2 % (11.0-16.0); White Blood Count 9.2 X10*3/uL (4.8-10.8)
--- NOTE | 2024-02-26 16:01 | PC.NURSE ---
Pt comes to ED today from an outpatient appointment. Per family at bedside, Pt suddenly felt cold and presented with tremors and stiffness. A&Ox3, low grade fever, tachycardia 20g L lateral AC Inital lab sent, awaiting additional orders.
--- NOTE | 2024-02-26 16:09 | ED_ITS ---
HPI - General Adult General Chief complaint: General Medical Stated complaint: Vomiting, shaking Time Seen by Provider: 02/26/24 15:50 Source: patient and other (friend) Mode of arrival: wheelchair Limitations: no limitations History of Present Illness HPI narrative: Patient is a 69-year-old male who presents emergency department with his friend. He arrived by private vehicle required wheelchair assistance out of the vehicle. He was accompanying a friend to her outpatient appointment, when he said he suddenly felt cold and began shaking. He was having a somewhat difficult time walking. He ultimately decided to leave the office and walk outside to the car. His friend who is currently present at bedside states that when she got to the car he was very tremulous, seemed slightly confused and began vomiting. She drove immediately over to the emergency department doors. He was weak and required assistance out of the vehicle. She reports he has a history of oral cancer awaiting removal of his jaw bone on 03/06/2024 at [facility]. Currently he still feels nauseous but has had no further episodes of vomiting, he has pain to the periumbilical region. He reports that 2 weeks ago he began having multiple bouts of diarrhea which resolved 1 week ago. Additionally, 1 week ago he began complaining of diffuse lower back pain. He was previously taking Percocet 15 mg for pain but it was causing stomach upset therefore this was discontinued and he began taking Tylenol 650 mg every 6 hours. He denies dysuria, hematuria, bladder or bowel dysfunction/incontinence, saddle paresthesias, numbness or tingling of the lower extremities. He denies any precipitating injury or call. Related Data Home Medications ?Medication ?Instructions ?Recorded ?Confirmed amlodipine 10 mg tablet 10 mg PO DAILY 12/27/22 12/27/22 atorvastatin 10 mg tablet 10 mg PO DAILY 12/27/22 12/27/22 chlorthalidone 25 mg tablet 25 mg PO DAILY 12/27/22 12/27/22 empagliflozin 25 mg tablet 25 mg PO DAILY 12/27/22 12/27/22 (Jardiance) insulin aspart U-100 100 unit/mL 6 unit subcut DAILY 12/27/22 12/27/22 (3 mL) subcutaneous pen (Novolog FlexPen U-100 Insulin aspart) insulin glargine 100 unit/mL 54 unit subcut DAILY 12/27/22 12/27/22 subcutaneous solution (Lantus U-100 Insulin) levothyroxine 50 mcg tablet 50 mcg PO DAILY@0600 12/27/22 12/27/22 losartan 100 mg tablet 100 mg PO DAILY 12/27/22 12/27/22 metformin 850 mg tablet 850 mg PO BID 12/27/22 12/27/22 sertraline 100 mg tablet 150 mg PO DAILY 12/27/22 12/27/22 flash glucose sensor (FreeStyle #1 ea 02/13/24 Marlen 2 Sensor kit) insulin glargine 100 unit/mL (3 unit subcut 02/13/24 mL) subcutaneous pen (Lantus Solostar U-100 Insulin) insulin lispro 100 unit/mL subcut 02/13/24 subcutaneous pen (Humalog KwikPen (U-100) Insulin) lancets 33 gauge (TRUEplus Lancets) #100 ea 02/13/24 omeprazole 20 mg capsule,delayed 20 mg PO DAILY 02/13/24 release Previous Rx's ?Medication ?Instructions ?Recorded cyclobenzaprine 10 mg tablet 10 mg PO TID PRN muscle spasm #10 12/27/22 tabs gabapentin 300 mg capsule 300 mg PO TID #14 caps 12/27/22 meloxicam 7.5 mg tablet 7.5 mg PO DAILY #10 tabs 12/27/22 acetaminophen 650 mg 650 mg PO Q8H PRN fever or pain 03/12/23 tablet,extended release #14 tabs cyclobenzaprine 5 mg tablet 5 mg PO TID PRN muscle spasm #10 03/12/23 tabs clotrimazole-betamethasone 1 1 appl topical BID 4 weeks #45 02/13/24 %-0.05 % topical cream grams tadalafil 10 mg tablet 10 mg PO DAILY sexual activity 90 02/13/24 days #90 tabs tadalafil 20 mg tablet 20 mg PO ONCE PRN sexual activity 02/13/24 30 days #30 tabs tamsulosin 0.4 mg capsule 0.4 mg PO BEDTIME 90 days #90 caps 02/13/24 Allergies Allergy/AdvReac Type Severity Reaction Status Date / Time No Known Allergies Allergy Verified 02/26/24 15:04 Review of Systems 2 Review of Systems: Yes all other systems are reviewed and are negative PMFSH Past Medical History Attestation statement: The following information was validated with the patient. Source: old records reviewed Medical History History of prostate cancer Hypothyroidism Psoriasis Type 2 diabetes mellitus without 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, with prison current use of insulin pump Chronic kidney disease Diabetes Hypertension Surgical History Hx of radical prostatectomy Social History Social History Patient Tobacco Use Status: Former Tobacco user Smoked in Last 30 Days: No Use of substances other than those prescribed or required for medical reasons: No Substance Use Type: Marijuana Advance Directives: No Advance Directives Information Provided: No Physical Exam ED Vital Signs: Vital Signs - 24 hr 02/26/24 15:02 02/26/24 15:34 02/26/24 16:00 Temperature 0 F L 99.1 F 103.4 F H Pulse Rate 130 H 130 H Respiratory Rate 18 16 Blood Pressure 193/91 H 131/80 Pulse Oximetry 95 95 Oxygen Delivery Method Room Air Room Air 02/26/24 16:25 02/26/24 17:48 02/26/24 18:06 Temperature 99.1 F Pulse Rate 100 98 Respiratory Rate 16 20 Blood Pressure 109/64 99/47 L Pulse Oximetry 94 Oxygen Delivery Method Room Air 02/26/24 18:25 02/26/24 18:49 Temperature 98.4 F Pulse Rate 95 88 Respiratory Rate 13 16 Blood Pressure 102/51 L 110/54 L Pulse Oximetry 95 Oxygen Delivery Method Room Air BMI result Body Mass Index 28.6 Appearance: Alert.?Oriented to person, place and time. No acute distress.?Normal affect. Eyes: Pupils equal, round and reactive to light.? ENT: Pharynx normal.?? Neck: Normal inspection.? Neck supple.?? CVS: Heart sounds normal. Normal heart rate and rhythm.? Pulses normal.?egual blood pressure and pulses to bilateral upper extremities? Respiratory: No respiratory distress.? Lung sounds clear to auscultation bilaterally?? Abdomen: Semifirm with periumbilical tenderness to palp, no LQ/UQ tenderness, guarding over periumbilical region, no rigidity. bilateral CVAT. Hypooactive bowel sounds. No pulsatile mass.?? Skin: Skin not flushed, and dry.? Normal skin color.? Normal skin turgor.?? Extremities: No lower extremity edema.? No calf ttp? Neuro: Moves all extremities spontaneously. Sensation intact bilaterally. No focal neuro deficits. Ambulates with normal steady gait. Course Reevaluation(s) Reevaluation #1: Workup thus far consistent with urinary tract infections, meeting sepsis criteria. CT abdomen and pelvis without acute pathology, splenomegaly, fatty infiltration of the liver, small fat containing umbilical hernia without evidence of obstruction, no hydroureter nephrosis or perinephric stranding. Plan for admission to medicine service for urinary tract infection and sepsis Medications Administered Discontinued Medications Generic Name Dose Route Start Last Admin Trade Name Freq PRN Reason Stop Dose Admin Acetaminophen 975 mg 02/26/24 16:06 02/26/24 16:26 Acetaminophen 325 Mg Tablet PO 02/26/24 16:07 975 mg ONCE ONE Administration Piperacillin Sod/Tazobactam 50 mls @ 100 mls/hr 02/26/24 16:04 02/26/24 18:23 Sod 3.375 gm/ Sodium Chloride IV 02/26/24 16:33 Infused ONCE ONE Infusion Sodium Chloride 2,271 mls @ 2,271 mls/hr 02/26/24 16:06 02/26/24 18:24 Ns 30 ml/kg infuse over 1 hr (2271 ml) 02/26/24 17:05 Infused IV Infusion .Q1H STA Magnesium Sulfate 2 gm in 50 mls @ 150 mls/hr 02/26/24 16:20 02/26/24 18:30 Magnesium Sulfate/H2o IV 02/26/24 16:39 Infused ONCE ONE Infusion Iohexol 100 ml 02/26/24 17:24 02/26/24 17:25 Iohexol 350 Mg/Ml 100 Ml Infus..Btl IV 02/26/24 17:25 100 ml ONCE ONE Administration Morphine Sulfate 4 mg 02/26/24 16:07 02/26/24 16:25 Morphine Sulfate 4 Mg/Ml Cartridge IVPUSH 02/26/24 16:08 4 mg ONCE ONE Administration Protocol Ondansetron HCl 4 mg 02/26/24 16:04 02/26/24 16:25 Ondansetron Hcl 4 Mg/2 Ml Vial IVPUSH 02/26/24 16:05 4 mg ONCE ONE Administration Medical Decision Making Medical Decision Making [facility] Narrative: Patient is a 69 year old male pmhx of prostate CA with radical prostatecomy 2004, hypothyroidism, DMII, CKD, HTN, psoriasis, oral cancer, pending planned resection of left jaw bone 03/06/2024 at [facility] presents for nausea, vomiting, ABD pain, 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 After initial contact, meeting SIRS criteria; tachycardic and febrile - Sepsis alert was called at 16:03 - sepsis fluid bolus ordered, covering with Zosyn given gastrointestinal symptoms. Zofran and morphine IV for pain. pendings labs and CT AP. Differential Diagnosis Differential Diagnoses: The differential diagnosis associated with the presentation includes GI perforation, AAA, aortic dissection, obstructed hernia, bowel obstruction, mesenteric ischeia, appendicitis, myocardial infarction, metastasis, DKA. Admission/Observation Consideration of admission/observation: Escalation of care including admission/observation considered (See narrative above and course narrative for further detail) Consult Healthcare Provider Management of the patient was discussed with: Hospitalist (Dr. Augustin) Lab Data [facility] Lab Attestation statement: I reviewed the patient's lab results. 02/26/24 15:33 02/26/24 15:33 Labs: Lab Results 02/26/24 02/26/24 Range/Units 15:33 16:21 WBC 9.2 (4.8-10.8) X10*3/uL RBC 5.28 (4.60-5.80) X10*6/uL Hgb 15.1 (14.0-18.0) g/dl Hct 43.1 (42.0-52.0) % MCV 81.6 (80.0-98.0) fL MCH 28.6 (27.0-33.0) pg MCHC 35.0 (31.0-36.0) g/dl RDW 13.2 (11.0-16.0) % Plt Count 207 (160-400) X10*3/uL MPV 9.8 (9.4-12.4) fL Immature Gran % (Auto) 0.4 (0.0-0.4) % Neut % (Auto) 77.6 H (45-73) % Lymph % (Auto) 15.3 L (20-40) % [place] % (Auto) 4.7 (2-11) % Eos % (Auto) 1.5 (0-4) % Baso % (Auto) 0.5 (0-2) % Lymph # (Auto) 1.4 (1.2-4.9) X10*3/uL [place] # (Auto) 0.4 (0.1-1.2) X10*3/uL Eos # (Auto) 0.1 (0.0-0.4) X10*3/uL Baso # (Auto) 0.1 (0.0-0.2) X10*3/uL Abs Immat Gran (auto) 0.04 H (0.00-0.03) X10*3/uL Absolute Neuts (auto) 7.1 (2.0-8.3) x10*3/uL Absolute Nucleated RBC 0.000 (0.0-0.012) X10*3/uL Nucleated RBC % (auto) 0.0 (0.0-0.2) /100WBC PT 13.8 H (10.9-12.4) SEC INR 1.2 H (0.9-1.1) Sodium 140 (135-145) mmol/L Potassium 4.2 (3.3-5.1) mmol/L Chloride 108 (96-108) mmol/L Carbon Dioxide 19 L (22-29) mmol/L Anion Gap 17 (12-20) BUN 23 H (9-16) mg/dL Creatinine 1.36 (0.5-1.4) mg/dL Estim Creat Clear Calc 48.3 Estimated GFR 52 Random Glucose 197 H (60-115) mg/dL Lactic Acid 3.4 H* (0.5-2.0) mmol/L Calcium 10.2 (8.4-10.2) mg/dL Magnesium 1.4 L* (1.6-2.6) mg/dL Total Bilirubin 0.7 (0.0-1.0) mg/dL AST 47 H (5-37) U/L ALT 48 H (0-40) U/L Alkaline Phosphatase 122 H (39-117) U/L Troponin I High Sens < 2.7 (<3.5-35.0) ng/L C-Reactive Protein 1.21 H (< or = 0.50) mg/dL Total Protein 7.8 (6.5-8.0) g/dL Albumin 4.1 (3.5-5.0) g/dL Lipase 31 (8-78) U/L Urine Color Yellow Urine Appearance Cloudy Urine pH 5.5 (5.0-9.0) Ur Specific [place] 1.020 (1.005-1.025) Urine Protein 100 (2+) H (Neg-Trace) mg/dL Urine Glucose (UA) 250 H (Negative) mg/dL Urine Ketones Negative (Negative) mg/dL Urine Blood Moderate (2+) H (Negative) Urine Nitrite Positive H (Negative) Ur Leukocyte Esterase Large (3+) H (Negative) Urine RBC 0-2 (0-2) /HPF Urine WBC 21-50 (0-5) /HPF Ur Squamous Epith Cells 3-5 (0-2) /HPF Urine Bacteria 4+ (None Seen) Hyaline Casts 0-2 (0-2) /LPF Influenza Type A (PCR) NEGATIVE (Negative) Influenza Type B (PCR) NEGATIVE (Negative) RSV RNA Qual (PCR) NEGATIVE (Negative) SARS-CoV-2 RNA (RT-PCR) NEGATIVE (Negative) Independent Interpretation I performed an independent interpretation of an: EKG and CT Scan (See course narrative) Interpretation: Rate: 112 Rhythm:?NSR Normal P waves.? Normal SARAH.?? Normal QRS complex.?? ST T wave :??no ST elevation, no ST depression, T wave inversion III qTC: 428 The study has been interpreted contemporaneously by me. Radiology Impression Discussion of test interpretation with radiology: I have reviewed the radiologist's reading. Radiologist Impression: CT/CT abdomen pelvis w IV con IMPRESSION: 1. No explanation for abdominal pain. 2. Splenomegaly. 3. Mild fatty infiltration of the liver. 4. Small fat-containing umbilical hernia. Independent Historian Clinical information obtained from an independent historian. History obtained from or confirmed by: Other (Friend) External Record Review External record reviewed: Outpatient record Prescription Management I considered prescription management with: Pain Medication Chronic Conditions Patient?s care impacted by: Diabetes and Cancer Critical Care Time Critical Care Time Critical Care Time: Yes Total Critical Care Time: 40 Attestation: I personally attest to this critical care time spent taking care of the patient exclusive of all other billable procedures was approximately 40 minutes including initial evaluation of patient, ordering tests, CT AP interpretation,, EKG interpretation, medical consultation, documentation, re-evaluation. Discharge Plan Discharge Clinical Impression: Sepsis, Urinary tract infection Patient Disposition: Admitted As Inpatient Print Language: Mauritanian
[2024-02-26 16:21] LABS: Alanine Aminotransferase 48 U/L (0-40); Albumin Level 4.1 g/dL (3.5-5.0); Alkaline Phosphatase 122 U/L (39-117); Anion Gap 17 (12-20); Aspartate Amino Transferase 47 U/L (5-37); Bilirubin Total 0.7 mg/dL (0.0-1.0); Blood Urea Nitrogen 23 mg/dL (9-16); Calcium 10.2 mg/dL (8.4-10.2); Carbon Dioxide 19 mmol/L (22-29); Chloride 108 mmol/L (96-108); Creatinine Clr Calc Pharmacy 48.3; Estimated Glomerular Filt Rate 52; Glucose Random 197 mg/dL (60-115); Lipase 31 U/L (8-78); Magnesium 1.4 mg/dL (1.6-2.6); Potassium 4.2 mmol/L (3.3-5.1); Sodium 140 mmol/L (135-145); Total Protein 7.8 g/dL (6.5-8.0)
--- NOTE | 2024-02-26 16:21 | ECG_ITS ---
Test Reason : SEPSIS Blood Pressure : / mmHG Vent. Rate : 112 BPM Atrial Rate : 112 BPM P-R Int : 128 ms QRS Dur : 082 ms QT Int : 314 ms P-R-T Axes : 052 051 022 degrees QTc Int : 428 ms Sinus tachycardia Otherwise normal ECG When compared with ECG of 27-DEC-2022 10:58, QRS axis Shifted left Heart rate has increased Referred By: Adriana Genao Electronically Signed By:SANDY NEWTON
[2024-02-26] MEDS: Morphine Sulfate 4 MG/ML CARTRIDGE IVPUSH (16:25)
[2024-02-26] MEDS: ondansetron HCL 4 MG/2 ML VIAL IVPUSH (16:25)
[2024-02-26] MEDS: Acetaminophen 325 MG TABLET 975 MG PO (16:26)
[2024-02-26 16:39] LABS: Appearance Urine Cloudy; Color Urine Yellow; Glucose Urine UA 250 mg/dL (Negative); Leukocyte Esterase Urine Large (3+) (Negative); Nitrite Urine Positive (Negative); PH 5.5 (5.0-9.0); UMIC TRIGGER UACC YES; Urine Blood Moderate (2+) (Negative); Urine Ketones Negative (Negative); Urine Protein 100 (2+) mg/dL (Neg-Trace)
[2024-02-26] MEDS: Piperacillin Sodium/Tazobactam 3.375 GM in 0.9 % Sodium Chloride 50 ML IV (16:47)
[2024-02-26] MEDS: Magnesium Sulfate/H2O 2 GM/50 ML PIGGYBACK IV (16:49)
[2024-02-26 16:50] LABS: Bacteria Urine 4+ (None Seen); Hyaline Casts Urine 0-2 /LPF (0-2); RBC Urine 0-2 /HPF (0-2); UACC Culture Trigger YES; WBC Urine 21-50 /HPF (0-5)
[2024-02-26 16:51] LABS: C Reactive Protein 1.21 mg/dL (< or = 0.50)
[2024-02-26 16:54] LABS: INTERNATIONAL NORM RATIO 1.2 (0.9-1.1); Prothrombin Time 13.8 SEC (10.9-12.4)
[2024-02-26 17:01] LABS: Troponin-I High Sensitivity < 2.7 ng/L (<3.5-35.0)
[2024-02-26 17:09] LABS: Lactic Acid 3.4 mmol/L (0.5-2.0)
[2024-02-26 17:13] LABS: Influenza A PCR NEGATIVE (Negative); Influenza B PCR NEGATIVE (Negative); Resp Syncy Virus RNA Qual PCR NEGATIVE (Negative); SARS COV2 PCR INHOUSE NEGATIVE (Negative)
[2024-02-26] MEDS: iohexoL 350 MG/ML 100 ML INFUS..BTL IV (17:25)
[2024-02-26 18:28] LABS: Reflex Lactate? Lactic Acid Added
--- NOTE | 2024-02-26 19:40 | P.HPHOSP_ITS ---
History of Present Illness Date of Service: 02/26/24 Chief Complaint: Chills This is a 69-year-old male with pertinent history of hypertension, mixed hyperlipidemia, insulin-dependent diabetes mellitus, BPH, hypothyroidism, mood disorder, oral cancer who presents to the emergency department for evaluation of chills. History was obtained with the help of assistant guest services manager. Patient developed chills on the day of presentation. Also complains of dysuria and increased urinary frequency. Does not remember if he has had UTI before. Also has been having midline back discomfort. Endorses nonbloody emesis along with the chills. No documented temperature, chest pain, palpitations, shortness of breath, abdominal pain, changes in bowel habits. In the emergency department, patient was found to be septic with elevated lactic acid. Urine concerning for UTI. 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 without 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, 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 Chronic kidney disease Diabetes Hypertension Pertinent family history: No family history of early CAD Surgical History Hx of radical prostatectomy Social History Patient Tobacco Use Status: Former Tobacco user Smoked in Last 30 Days: No Use of substances other than those prescribed or required for medical reasons: No Substance Use Type: Marijuana Advance Directives: No Advance Directives Information Provided: No Meds Allergies Allergy/AdvReac Type Severity Reaction Status Date / Time No Known Allergies Allergy Verified 02/26/24 15:04 Home Medications ?Medication ?Instructions ?Recorded ?Confirmed ?Last Taken ?Type amlodipine 10 mg tablet 10 mg PO DAILY 12/27/22 12/27/22 Unknown History atorvastatin 10 mg tablet 10 mg PO DAILY 12/27/22 12/27/22 Unknown History chlorthalidone 25 mg tablet 25 mg PO DAILY 12/27/22 12/27/22 Unknown History empagliflozin 25 mg tablet 25 mg PO DAILY 12/27/22 12/27/22 Unknown History (Jardiance) insulin aspart U-100 100 unit/mL 6 unit subcut DAILY 12/27/22 12/27/22 Unknown History (3 mL) subcutaneous pen (Novolog FlexPen U-100 Insulin aspart) insulin glargine 100 unit/mL 54 unit subcut DAILY 12/27/22 12/27/22 Unknown History subcutaneous solution (Lantus U-100 Insulin) levothyroxine 50 mcg tablet 50 mcg PO DAILY@0600 12/27/22 12/27/22 Unknown History losartan 100 mg tablet 100 mg PO DAILY 12/27/22 12/27/22 Unknown History metformin 850 mg tablet 850 mg PO BID 12/27/22 12/27/22 Unknown History sertraline 100 mg tablet 150 mg PO DAILY 12/27/22 12/27/22 Unknown History flash glucose sensor (FreeStyle #1 ea 02/13/24 Unknown History Marlen 2 Sensor kit) insulin glargine 100 unit/mL (3 unit subcut 02/13/24 Unknown History mL) subcutaneous pen (Lantus Solostar U-100 Insulin) insulin lispro 100 unit/mL subcut 02/13/24 Unknown History subcutaneous pen (Humalog KwikPen (U-100) Insulin) lancets 33 gauge (TRUEplus Lancets) #100 ea 02/13/24 Unknown History omeprazole 20 mg capsule,delayed 20 mg PO DAILY 02/13/24 Unknown History release Physical Exam 2 Vital Signs and Narrative: Vital Signs: Last Vital Signs Temp 98.4 F 02/26/24 18:25 Pulse 88 02/26/24 18:49 Resp 16 02/26/24 18:49 BP 110/54 L 02/26/24 18:49 Pulse Ox 95 02/26/24 18:25 O2 Del Method Room Air 02/26/24 18:25 BMI result Body Mass Index 28.6 Middle-aged male lying in bed in no distress Neck supple, no JVD Regular rate and rhythm, S1-S2 heard Regular breath sounds bilaterally, no wheezing or crackles appreciated Abdomen soft nontender, no guarding, no rigidity Patient is awake, alert and oriented to self, place, time and person ; no focal motor deficit Psych: Normal mood No pedal edema Results Labs 02/26/24 15:33 02/26/24 15:33 Labs: Laboratory Results - last 24 hr 02/26/24 02/26/24 02/26/24 15:33 16:21 18:49 MCV 81.6 MCH 28.6 MCHC 35.0 RDW 13.2 Plt Count 207 MPV 9.8 Immature Gran % (Auto) 0.4 Neut % (Auto) 77.6 H Lymph % (Auto) 15.3 L [place] % (Auto) 4.7 Eos % (Auto) 1.5 Baso % (Auto) 0.5 Lymph # (Auto) 1.4 [place] # (Auto) 0.4 Eos # (Auto) 0.1 Baso # (Auto) 0.1 Abs Immat Gran (auto) 0.04 H Absolute Neuts (auto) 7.1 Absolute Nucleated RBC 0.000 Nucleated RBC % (auto) 0.0 PT 13.8 H INR 1.2 H Anion Gap 17 Estim Creat Clear Calc 48.3 Estimated GFR 52 Random Glucose 197 H Lactic Acid 3.4 H* Lactic Acid F/U @ 2Hr 2.0 Calcium 10.2 Magnesium 1.4 L* Total Bilirubin 0.7 AST 47 H ALT 48 H Alkaline Phosphatase 122 H Troponin I High Sens < 2.7 C-Reactive Protein 1.21 H Total Protein 7.8 Albumin 4.1 Lipase 31 Urine Color Yellow Urine Appearance Cloudy Urine pH 5.5 Ur Specific [place] 1.020 Urine Protein 100 (2+) H Urine Glucose (UA) 250 H Urine Ketones Negative Urine Blood Moderate (2+) H Urine Nitrite Positive H Ur Leukocyte Esterase Large (3+) H Urine RBC 0-2 Urine WBC 21-50 Ur Squamous Epith Cells 3-5 Urine Bacteria 4+ Hyaline Casts 0-2 Influenza Type A (PCR) NEGATIVE Influenza Type B (PCR) NEGATIVE RSV RNA Qual (PCR) NEGATIVE SARS-CoV-2 RNA (RT-PCR) NEGATIVE Imaging Radiologist's Impressions: Impressions Abdomen/Pelvis CT 02/26/24 17:23 IMPRESSION: 1. No explanation for abdominal pain. 2. Splenomegaly. 3. Mild fatty infiltration of the liver. 4. Small fat-containing umbilical hernia. Fleischner guidelines were followed. Electronically signed by: Cara Pretty MD 02/26/2024 06:51 PM EDT Assessment and Plan (1) Urinary tract infection: Status: Acute (2) Sepsis: Status: Acute Plan This is a 69-year-old male with pertinent history of hypertension, mixed hyperlipidemia, insulin-dependent diabetes mellitus, BPH, hypothyroidism, mood disorder, oral cancer who presents to the emergency department for evaluation of chills. #. Severe sepsis due to acute complicated UTI: Resuscitated with IV crystalloids. Lactic acid and blood culture obtained. Initiating empiric IV ceftriaxone. Follow urine culture. #. Acute lactic acidosis due to sepsis. Resolved with crystalloid resuscitation #. Hypomagnesemia: Repleted #. Insulin-dependent diabetes mellitus with hyperglycemia: Initiating basal plus insulin regimen #. BPH: On Flomax #. Oral cancer: Awaiting mandibulectomy at [facility] on 03/06 #. Mixed hyperlipidemia: On statin #. Hypertension: Hold antihypertensives in the setting of severe sepsis. Resume as appropriate #. Hypothyroidism: On Synthroid #. Mood disorder: Continue home mood stabilizers Med rec pending DVT prophylaxis: Lovenox Full code Admit as inpatient and will require two night minimum hospital stay for IV antibiotics (as above), which is not possible in a lesser acute setting. Quality Stroke Does the patient have a stroke diagnosis?: No VTE Prior VTE?: No VTE Risk Level:: Medical - moderate - high VTE Device Contraindication: Treatment Not Indicated VTE Drug Contraindication: N/A - Med Ordered
--- NOTE | 2024-02-26 19:41 | PC.NURSE ---
assumed care of pt at 1900. Hospitalist Charli in room to admit patient.
[2024-02-26] MEDS: cefTRIAXone sodium 2 GM in 0.9 % Sodium Chloride 50 ML IV (20:03)
[2024-02-26] MEDS: Enoxaparin Sodium 40 MG/0.4 ML SYRINGE SUBCUT (20:03)
--- NOTE | 2024-02-26 20:04 | PC.NURSE ---
MD Augustin aware of pt temp.
[2024-02-26 20:09] LABS: Glucose, Whole Blood 146 mg/dL (60-115)
[2024-02-26] MEDS: Insulin Glargine,Hum.rec.anlog 100 UNIT/ML 10 ML VIAL 48 UNIT SUBCUT (20:09)
[2024-02-26] MEDS: Acetaminophen 1,000 MG/100 ML PIGGYBACK 400 MG IV (20:26)
--- NOTE | 2024-02-26 21:13 | PHA.MEDREC ---
Pharmacy Consult ? Medication Reconciliation Pharmacy has completed the medication reconciliation. Spoke to patient and family members at bedside to confirm medication list. Patient said he takes novolog 6 units tid, lantus 68 units at night, sertraline 150 mg daily, trulicity 1.5 mg on sunday, vitamin D 2000 units daily and apap 650 mg q6h. He doesn't take oxycodone anymore (stopped about a week ago).
[2024-02-26] MEDS: Ibuprofen 600 MG TABLET PO (21:28)
[2024-02-26] MEDS: Melatonin 3 MG TABLET 6 MG PO (21:29)
[2024-02-26] MEDS: Tamsulosin HCL 0.4 MG CAPSULE PO (23:37)
[2024-02-27] VITALS (8 sets, daily range): BP systolic 93–137; BP diastolic 56–71; PULSE 62–72; RESP 12–20; TEMP 36.1–37.2; O2SAT 94–100; BMI 31.0
[2024-02-27 05:18] LABS: MANUAL DIFF FLAG NO
[2024-02-27 05:29] LABS: Basophils Absolute Auto 0.1 X10*3/uL (0.0-0.2); Basophils Percent Auto 0.4 % (0-2); Eosinophils Absolute Auto 0.1 X10*3/uL (0.0-0.4); Eosinophils Percent Auto 0.7 % (0-4); Hematocrit 36.4 % (42.0-52.0); Hemoglobin 12.5 g/dl (14.0-18.0); Imm Gran Pct Auto 0.9 % (0.0-0.4); Lymphocytes Absolute Auto 1.5 X10*3/uL (1.2-4.9); Lymphocytes Percent Auto 12.9 % (20-40); Mean Corpuscular HGB Conc 34.3 g/dl (31.0-36.0); Mean Corpuscular Hemoglobin 28.5 pg (27.0-33.0); Mean Corpuscular Volume 82.9 fL (80.0-98.0); Mean Platelet Volume 10.5 fL (9.4-12.4); Monocytes Absolute Auto 0.7 X10*3/uL (0.1-1.2); Monocytes Percent Auto 5.8 % (2-11); Neutrophils Percent Auto 79.3 % (45-73); Platelet Count 168 X10*3/uL (160-400); Red Blood Count 4.39 X10*6/uL (4.60-5.80); Red Cell Distribution Width 13.5 % (11.0-16.0); White Blood Count 11.3 X10*3/uL (4.8-10.8)
[2024-02-27 05:35] LABS: Magnesium 1.7 mg/dL (1.6-2.6)
[2024-02-27 05:41] LABS: Anion Gap 11 (12-20); Blood Urea Nitrogen 22 mg/dL (9-16); Calcium 8.4 mg/dL (8.4-10.2); Carbon Dioxide 20 mmol/L (22-29); Chloride 111 mmol/L (96-108); Creatinine Clr Calc Pharmacy 46.3; Estimated Glomerular Filt Rate 50; Glucose Random 162 mg/dL (60-115); Sodium 138 mmol/L (135-145)
[2024-02-27] MEDS: Levothyroxine Sodium 50 MCG TABLET PO (06:26)
[2024-02-27] MEDS: Omeprazole 20 MG CAPSULE.DR PO (06:26)
[2024-02-27 07:37] LABS: Glucose, Whole Blood 144 mg/dL (60-115)
[2024-02-27] MEDS: 0.9 % Sodium Chloride 1,000 ML 125 ML IVCONT ×2 (07:56→15:39)
[2024-02-27] MEDS: Sertraline HCL 50 MG TABLET 150 MG PO (08:18)
[2024-02-27] MEDS: Atorvastatin Calcium 10 MG TABLET PO (08:18)
[2024-02-27] MEDS: Cholecalciferol (Vitamin D3) 25 MCG TABLET 50 MCG PO (08:18)
--- NOTE | 2024-02-27 08:32 | PC.NURSE ---
vss and up to date. nsr on the monitoring coordinator. pt currently resting comfortably in no apparent distress. denies pain. medication administered per provider order. swallows pills whole w/o 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s. pharmacy called d/t missing medication - will administer when able. pt continues to wait for bed assignment. no sob/wob noted. respirations even/unlabored. plan of care ongoing. call ornelas placed within reach.
[2024-02-27] MEDS: Nystatin/Triamcinolone Cream 15 GM TUBE 1 APPL TOPICAL ×2 (08:38→21:02)
[2024-02-27 11:51] LABS: Glucose, Whole Blood 191 mg/dL (60-115)
--- NOTE | 2024-02-27 12:57 | MHC.CM.PN ---
CM MET WITH PT WITH A RECREATION COORDINATOR PT LIVES ALONE AND IS INDEPENDENT WITH CARE HE HAS NO DME AND NO SERVICES HE DECLINES TO COMPLETE A HCP, BUT DID ACCEPT INFO PCP: YAIMA WILKES IMM DELIVERED DCP: HOME VIA PRIVATE TRANSPORT
[2024-02-27] MEDS: Insulin Lispro 100 UNIT/ML 3 ML VIAL SUBCUT ×3 (12:58→20:09)
--- NOTE | 2024-02-27 13:54 | HO.PM.IMPN ---
Subjective Subjective Date of Service: 02/27/24 Interval History: febrile to 102.7 yesterday evening with chills feels better now only minimal urinary discomfort no hematuria This history was taken in [place] from the patient. Review of Systems Review of Systems: Yes all other systems are reviewed and are negative Physical Exam Vital Signs: Vital Signs: Last Vital Signs Temp 98.1 F 02/27/24 13:28 Pulse 66 02/27/24 13:28 Resp 15 02/27/24 13:28 BP 105/56 L 02/27/24 13:28 Pulse Ox 97 02/27/24 13:28 O2 Del Method Room Air 02/27/24 13:28 BMI result Body Mass Index 28.6 Gen: in no acute distress HEENT: sclera anicteric, moist mucus membranes Neck: supple Lungs: clear to auscultation bilaterally Heart: regular rate and rhythm, no murmurs Abd: soft, non-tender, non-distended Ext: no edema Skin: warm/well-perfused Neuro: alert and oriented x3, no focal findings Psych: appropriate affect Objective Data Active Medications Acetaminophen (Acetaminophen 325 Mg Tablet) 650 mg PO Q6H PRN PRN Reason: Pain, Mild (Pain Scale 1-3), fever or headache Atorvastatin Calcium (Atorvastatin Calcium 10 Mg Tablet) 10 mg PO DAILY [facility] Last Admin: 02/27/24 08:18 Dose: 10 mg Documented By: MIKE Calcium Carbonate (Calcium Carbonate 750 Mg Tab.Chew) 750 mg PO Q4H PRN PRN Reason: Heartburn Enoxaparin Sodium (Enoxaparin Sodium 40 Mg/0.4 Ml Syringe) 40 mg SUBCUT Q24H [facility] Last Admin: 02/26/24 20:03 Dose: 40 mg Documented By: TOM Glucose (Glucose Gel 15 Gm Gel..Gram.) 15 gm PO Q15M PRN; Protocol PRN Reason: per Hypoglycemia Standing Ord. Ceftriaxone Sodium 2 gm/ (Sodium Chloride) 50 mls @ 100 mls/hr IV Q24H [facility] Last Infusion: 02/26/24 20:36 Dose: Infused Documented By: TOM Dextrose (D10) 250 mls @ 750 mls/hr IV Q15M PRN; Protocol PRN Reason: per Hypoglycemia Standing Ord. Sodium Chloride (Ns) 1,000 mls @ 125 mls/hr IVCONT .Q8H [facility] Stop: 02/27/24 23:29 Last Admin: 02/27/24 07:56 Dose: 125 mls/hr Documented By: MIKE Insulin Glargine (Insulin Glargine,Hum.Rec.Anlog 100 Unit/Ml 10 Ml Vial) 50 unit SUBCUT BEDTIME [facility] Insulin Human Lispro (Insulin Lispro 100 Unit/Ml 3 Ml Vial) 0 unit SUBCUT QIDACHS [facility]; Protocol Last Admin: 02/27/24 12:58 Dose: 2 unit Documented By: JAMA Levothyroxine Sodium (Levothyroxine Sodium 50 Mcg Tablet) 50 mcg PO DAILY@0600 [facility] Last Admin: 02/27/24 06:26 Dose: 50 mcg Documented By: TOM Magnesium Hydroxide (Milk Of Magnesia 30 Ml Oral.Susp) 30 ml PO DAILY PRN PRN Reason: Constipation Melatonin (Melatonin 3 Mg Tablet) 6 mg PO BEDTIME PRN PRN Reason: Insomnia Last Admin: 02/26/24 21:29 Dose: 6 mg Documented By: TOM Non-Formulary Medication (Calcipotriene) 1 appl TOPICAL BID [facility] Nystatin/Triamcinolone Acetonide (Nystatin/Triamcinolone Cream 15 Gm Tube) 1 appl TOPICAL BID [facility] Last Admin: 02/27/24 08:38 Dose: 1 appl Documented By: MIKE Omeprazole (Omeprazole 20 Mg Capsule.) 20 mg PO DAILY@0630 [facility] Last Admin: 02/27/24 06:26 Dose: 20 mg Documented By: TOM Ondansetron HCl (Ondansetron Hcl 4 Mg/2 Ml Vial) 4 mg IVPUSH Q8H PRN PRN Reason: Nausea and Vomiting Sertraline HCl (Sertraline Hcl 50 Mg Tablet) 150 mg PO DAILY [facility] Last Admin: 02/27/24 08:18 Dose: 150 mg Documented By: MIKE Sodium Chloride (0.9 % Sodium Chloride Flush 3 Ml Syringe) 3 ml IVFLUSH QSHIFT [facility] Last Admin: 02/27/24 07:57 Dose: Not Given Documented By: MIKE Non-Admin Reason: IV Running Tamsulosin HCl (Tamsulosin Hcl 0.4 Mg Capsule) 0.4 mg PO BEDTIME [facility] Last Admin: 02/26/24 23:37 Dose: 0.4 mg Documented By: TOM Vitamin D (Cholecalciferol (Vitamin D3) 25 Mcg Tablet) 50 mcg PO DAILY [facility] Last Admin: 02/27/24 08:18 Dose: 50 mcg Documented By: MIKE Labs 02/27/24 05:08 02/27/24 05:08 Labs: Laboratory Results - last 24 hr 02/26/24 02/26/24 02/26/24 15:33 16:21 18:49 MCV 81.6 MCH 28.6 MCHC 35.0 RDW 13.2 Plt Count 207 MPV 9.8 Immature Gran % (Auto) 0.4 Neut % (Auto) 77.6 H Lymph % (Auto) 15.3 L [place] % (Auto) 4.7 Eos % (Auto) 1.5 Baso % (Auto) 0.5 Lymph # (Auto) 1.4 [place] # (Auto) 0.4 Eos # (Auto) 0.1 Baso # (Auto) 0.1 Abs Immat Gran (auto) 0.04 H Absolute Neuts (auto) 7.1 Absolute Nucleated RBC 0.000 Nucleated RBC % (auto) 0.0 PT 13.8 H INR 1.2 H Anion Gap 17 Estim Creat Clear Calc 48.3 Estimated GFR 52 POC Glucose Random Glucose 197 H Lactic Acid 3.4 H* Lactic Acid F/U @ 2Hr 2.0 Calcium 10.2 Magnesium 1.4 L* Total Bilirubin 0.7 AST 47 H ALT 48 H Alkaline Phosphatase 122 H Troponin I High Sens < 2.7 C-Reactive Protein 1.21 H Total Protein 7.8 Albumin 4.1 Lipase 31 Urine Color Yellow Urine Appearance Cloudy Urine pH 5.5 Ur Specific [place] 1.020 Urine Protein 100 (2+) H Urine Glucose (UA) 250 H Urine Ketones Negative Urine Blood Moderate (2+) H Urine Nitrite Positive H Ur Leukocyte Esterase Large (3+) H Urine RBC 0-2 Urine WBC 21-50 Ur Squamous Epith Cells 3-5 Urine Bacteria 4+ Hyaline Casts 0-2 Influenza Type A (PCR) NEGATIVE Influenza Type B (PCR) NEGATIVE RSV RNA Qual (PCR) NEGATIVE SARS-CoV-2 RNA (RT-PCR) NEGATIVE 09/24/24 09/25/24 09/25/24 20:05 05:08 07:33 MCV 82.9 MCH 28.5 MCHC 34.3 RDW 13.5 Plt Count 168 MPV 10.5 Immature Gran % (Auto) 0.9 H Neut % (Auto) 79.3 H Lymph % (Auto) 12.9 L [place] % (Auto) 5.8 Eos % (Auto) 0.7 Baso % (Auto) 0.4 Lymph # (Auto) 1.5 [place] # (Auto) 0.7 Eos # (Auto) 0.1 Baso # (Auto) 0.1 Abs Immat Gran (auto) 0.10 H Absolute Neuts (auto) 9.0 H Absolute Nucleated RBC 0.000 Nucleated RBC % (auto) 0.0 PT INR Anion Gap 11 L Estim Creat Clear Calc 46.3 Estimated GFR 50 POC Glucose 146 H 144 H Random Glucose 162 H Lactic Acid Lactic Acid F/U @ 2Hr Calcium 8.4 D Magnesium 1.7 Total Bilirubin AST ALT Alkaline Phosphatase Troponin I High Sens C-Reactive Protein Total Protein Albumin Lipase Urine Color Urine Appearance Urine pH Ur Specific [place] Urine Protein Urine Glucose (UA) Urine Ketones Urine Blood Urine Nitrite Ur Leukocyte Esterase Urine RBC Urine WBC Ur Squamous Epith Cells Urine Bacteria Hyaline Casts Influenza Type A (PCR) Influenza Type B (PCR) RSV RNA Qual (PCR) SARS-CoV-2 RNA (RT-PCR) 02/27/24 11:46 MCV MCH MCHC RDW Plt Count MPV Immature Gran % (Auto) Neut % (Auto) Lymph % (Auto) [place] % (Auto) Eos % (Auto) Baso % (Auto) Lymph # (Auto) [place] # (Auto) Eos # (Auto) Baso # (Auto) Abs Immat Gran (auto) Absolute Neuts (auto) Absolute Nucleated RBC Nucleated RBC % (auto) PT INR Anion Gap Estim Creat Clear Calc Estimated GFR POC Glucose 191 H Random Glucose Lactic Acid Lactic Acid F/U @ 2Hr Calcium Magnesium Total Bilirubin AST ALT Alkaline Phosphatase Troponin I High Sens C-Reactive Protein Total Protein Albumin Lipase Urine Color Urine Appearance Urine pH Ur Specific [place] Urine Protein Urine Glucose (UA) Urine Ketones Urine Blood Urine Nitrite Ur Leukocyte Esterase Urine RBC Urine WBC Ur Squamous Epith Cells Urine Bacteria Hyaline Casts Influenza Type A (PCR) Influenza Type B (PCR) RSV RNA Qual (PCR) SARS-CoV-2 RNA (RT-PCR) Microbiology Microbiology Results: Microbiology 02/26/24 16:21 Urine Culture - Preliminary Urine clean catch - Clean Catch Midstream Assessment and Plan (1) Sepsis: Status: Acute (2) Urinary tract infection: Status: Acute Plan d2 69yo M with HTN, HLD, DM2, BPH, hx prostate CA, mandibular CA, BPH, hypothyroidism, mood disorder presenting with 1d of chills, dysuria, urinary frequency admitted for sepsis due to UTI severe sepsis due to UTI - ceftriaxone 02/25-, follow BCx/UCx - lactate normalized hypoMg - repleted HTN - holding amlodipie, chlorthalidone, and losartan BPH - continue tamsulosin HLD - continue statin DM2 - basal glargine + correction-dose lispro, DM diet mandibular CA - scheduled for surgery at [facility] 03/06/24 mood disorder - continue sertraline hypothyroidism - continue LT4 VTE ppx - enoxaparin dispo - TBD In my clinical judgment, the patient requires continued inpatient hospitalization for the following reasons: IV ABX Total time managing care of this patient today: 45 minutes. Quality Stroke Does the patient have a stroke diagnosis?: No VTE Prior VTE?: No VTE Risk Level:: Medical - moderate - high VTE Device Contraindication: Treatment Not Indicated VTE Drug Contraindication: N/A - Med Ordered
[2024-02-27 17:19] LABS: Glucose, Whole Blood 196 mg/dL (60-115)
[2024-02-27] MEDS: Enoxaparin Sodium 40 MG/0.4 ML SYRINGE SUBCUT (20:03)
[2024-02-27] MEDS: Acetaminophen 325 MG TABLET 650 MG PO (20:04)
[2024-02-27 20:05] LABS: Glucose, Whole Blood 197 mg/dL (60-115)
[2024-02-27] MEDS: Melatonin 3 MG TABLET 6 MG PO (20:05)
[2024-02-27] MEDS: cefTRIAXone sodium 2 GM in 0.9 % Sodium Chloride 50 ML IV (20:06)
[2024-02-27] MEDS: Tamsulosin HCL 0.4 MG CAPSULE PO (20:06)
[2024-02-27] MEDS: Insulin Glargine,Hum.rec.anlog 100 UNIT/ML 10 ML VIAL 50 UNIT SUBCUT (20:08)
--- NOTE | 2024-02-27 20:15 | PC.NURSE ---
PRN melatonin and tylenol given per pt request for headache and wanting to sleep.
[2024-02-27] MEDS: 0.9 % Sodium Chloride Flush 3 ML SYRINGE IVFLUSH (21:03)
[2024-02-27] MEDS: Zolpidem Tartrate 5 MG TABLET PO (22:39)
[2024-02-28 04:00] VITALS: BP 124/63; PULSE 55; RESP 18; TEMP 36.8; O2SAT 97
[2024-02-28] MEDS: Omeprazole 20 MG CAPSULE.DR PO (06:09)
[2024-02-28] MEDS: Levothyroxine Sodium 50 MCG TABLET PO (06:09)
[2024-02-28 06:47] LABS: Alanine Aminotransferase 35 U/L (0-40); Albumin Level 3.1 g/dL (3.5-5.0); Alkaline Phosphatase 99 U/L (39-117); Anion Gap 9 (12-20); Aspartate Amino Transferase 26 U/L (5-37); Bilirubin Total 0.4 mg/dL (0.0-1.0); Blood Urea Nitrogen 20 mg/dL (9-16); Calcium 8.7 mg/dL (8.4-10.2); Carbon Dioxide 21 mmol/L (22-29); Chloride 113 mmol/L (96-108); Creatinine Clr Calc Pharmacy 56.4; Estimated Glomerular Filt Rate 60; Glucose Random 117 mg/dL (60-115); Magnesium 1.9 mg/dL (1.6-2.6); Potassium 3.9 mmol/L (3.3-5.1); Sodium 139 mmol/L (135-145); Total Protein 6.2 g/dL (6.5-8.0)
[2024-02-28 07:04] VITALS: BP 122/63; PULSE 60; RESP 16; TEMP 37.8; O2SAT 95
[2024-02-28 07:09] LABS: Hematocrit 35.8 % (42.0-52.0); Hemoglobin 12.3 g/dl (14.0-18.0); Mean Corpuscular HGB Conc 34.4 g/dl (31.0-36.0); Mean Corpuscular Hemoglobin 28.5 pg (27.0-33.0); Mean Corpuscular Volume 83.1 fL (80.0-98.0); Platelet Count 168 X10*3/uL (160-400); Red Blood Count 4.31 X10*6/uL (4.60-5.80); Red Cell Distribution Width 13.5 % (11.0-16.0); White Blood Count 7.9 X10*3/uL (4.8-10.8)
[2024-02-28 07:15] LABS: Glucose, Whole Blood 107 mg/dL (60-115)
[2024-02-28] MEDS: 0.9 % Sodium Chloride Flush 3 ML SYRINGE IVFLUSH ×3 (07:15→19:08)
[2024-02-28] MEDS: Atorvastatin Calcium 10 MG TABLET PO (07:22)
[2024-02-28] MEDS: Sertraline HCL 50 MG TABLET 150 MG PO (07:22)
[2024-02-28] MEDS: Acetaminophen 325 MG TABLET 650 MG PO ×2 (07:23→22:25)
[2024-02-28] MEDS: Cholecalciferol (Vitamin D3) 25 MCG TABLET 50 MCG PO (07:23)
--- NOTE | 2024-02-28 10:10 | HO.PM.IMPN ---
Subjective Subjective Date of Service: 02/28/24 Interval History: fever/chills resolved no abd pain, N/V, or dysuria scheduled for surgery at [facility] 03/08/24 and missed anesthesia preop appt due to hospitalization This history was taken in [place] from the patient. Review of Systems Review of Systems: Yes all other systems are reviewed and are negative Physical Exam Vital Signs: Vital Signs: Last Vital Signs Temp 100.0 F 02/28/24 07:04 Pulse 60 02/28/24 07:04 Resp 16 02/28/24 07:04 BP 122/63 02/28/24 07:04 Pulse Ox 95 02/28/24 07:04 O2 Del Method Room Air 02/28/24 07:04 BMI result Body Mass Index 31.0 Gen: in no acute distress HEENT: sclera anicteric, moist mucus membranes Neck: supple Lungs: clear to auscultation bilaterally Heart: regular rate and rhythm, no murmurs Abd: soft, non-tender, non-distended Ext: no edema Skin: warm/well-perfused Neuro: alert and oriented x3, no focal findings Psych: appropriate affect Objective Data Active Medications Acetaminophen (Acetaminophen 325 Mg Tablet) 650 mg PO Q6H PRN PRN Reason: Pain, Mild (Pain Scale 1-3), fever or headache Last Admin: 02/28/24 07:23 Dose: 650 mg Documented By: JERRI Atorvastatin Calcium (Atorvastatin Calcium 10 Mg Tablet) 10 mg PO DAILY [facility] Last Admin: 02/28/24 07:22 Dose: 10 mg Documented By: JERRI Calcium Carbonate (Calcium Carbonate 750 Mg Tab.Chew) 750 mg PO Q4H PRN PRN Reason: Heartburn Enoxaparin Sodium (Enoxaparin Sodium 40 Mg/0.4 Ml Syringe) 40 mg SUBCUT Q24H [facility] Last Admin: 02/27/24 20:03 Dose: 40 mg Documented By: EPHRAIM Glucose (Glucose Gel 15 Gm Gel..Gram.) 15 gm PO Q15M PRN; Protocol PRN Reason: per Hypoglycemia Standing Ord. Ceftriaxone Sodium 2 gm/ (Sodium Chloride) 50 mls @ 100 mls/hr IV Q24H [facility] Last Infusion: 02/27/24 20:39 Dose: Infused Documented By: AMY Dextrose (D10) 250 mls @ 750 mls/hr IV Q15M PRN; Protocol PRN Reason: per Hypoglycemia Standing Ord. Insulin Glargine (Insulin Glargine,Hum.Rec.Anlog 100 Unit/Ml 10 Ml Vial) 50 unit SUBCUT BEDTIME [facility] Last Admin: 02/27/24 20:08 Dose: 50 unit Documented By: EPHRAIM Insulin Human Lispro (Insulin Lispro 100 Unit/Ml 3 Ml Vial) 0 unit SUBCUT QIDACHS [facility]; Protocol Last Admin: 02/28/24 07:13 Dose: Not Given Documented By: JERRI Non-Admin Reason: No Insulin Coverage Levothyroxine Sodium (Levothyroxine Sodium 50 Mcg Tablet) 50 mcg PO DAILY@0600 [facility] Last Admin: 02/28/24 06:09 Dose: 50 mcg Documented By: AMY Magnesium Hydroxide (Milk Of Magnesia 30 Ml Oral.Susp) 30 ml PO DAILY PRN PRN Reason: Constipation Melatonin (Melatonin 3 Mg Tablet) 6 mg PO BEDTIME PRN PRN Reason: Insomnia Last Admin: 02/27/24 20:05 Dose: 6 mg Documented By: EPHRAIM Non-Formulary Medication (Calcipotriene) 1 appl TOPICAL BID [facility] Nystatin/Triamcinolone Acetonide (Nystatin/Triamcinolone Cream 15 Gm Tube) 1 appl TOPICAL BID [facility] Last Admin: 02/27/24 21:02 Dose: 1 appl Documented By: AMY Omeprazole (Omeprazole 20 Mg Capsule.) 20 mg PO DAILY@0630 [facility] Last Admin: 02/28/24 06:09 Dose: 20 mg Documented By: AMY Ondansetron HCl (Ondansetron Hcl 4 Mg/2 Ml Vial) 4 mg IVPUSH Q8H PRN PRN Reason: Nausea and Vomiting Sertraline HCl (Sertraline Hcl 50 Mg Tablet) 150 mg PO DAILY [facility] Last Admin: 02/28/24 07:22 Dose: 150 mg Documented By: JERRI Sodium Chloride (0.9 % Sodium Chloride Flush 3 Ml Syringe) 3 ml IVFLUSH QSHIFT [facility] Last Admin: 02/28/24 07:15 Dose: 3 ml Documented By: JERRI Tamsulosin HCl (Tamsulosin Hcl 0.4 Mg Capsule) 0.4 mg PO BEDTIME [facility] Last Admin: 02/27/24 20:06 Dose: 0.4 mg Documented By: EPHRAIM Vitamin D (Cholecalciferol (Vitamin D3) 25 Mcg Tablet) 50 mcg PO DAILY [facility] Last Admin: 02/28/24 07:23 Dose: 50 mcg Documented By: JERRI Zolpidem Tartrate (Zolpidem Tartrate 5 Mg Tablet) 5 mg PO BEDTIME PRN PRN Reason: Insomnia Last Admin: 02/27/24 22:39 Dose: 5 mg Documented By: NEGARQC Labs 02/28/24 05:02 02/28/24 05:02 Labs: Laboratory Results - last 24 hr 02/27/24 02/27/24 02/27/24 11:46 17:14 20:01 MCV MCH MCHC RDW Plt Count MPV Absolute Nucleated RBC Nucleated RBC % (auto) Anion Gap Estim Creat Clear Calc Estimated GFR POC Glucose 191 H 196 H 197 H Random Glucose Calcium Magnesium Total Bilirubin AST ALT Alkaline Phosphatase Total Protein Albumin 02/28/24 02/28/24 05:02 07:06 MCV 83.1 MCH 28.5 MCHC 34.4 RDW 13.5 Plt Count 168 MPV 11.0 Absolute Nucleated RBC 0.000 Nucleated RBC % (auto) 0.0 Anion Gap 9 L Estim Creat Clear Calc 56.4 Estimated GFR 60 POC Glucose 107 Random Glucose 117 H Calcium 8.7 Magnesium 1.9 Total Bilirubin 0.4 AST 26 ALT 35 Alkaline Phosphatase 99 Total Protein 6.2 L Albumin 3.1 L Microbiology Microbiology Results: Microbiology 02/26/24 16:21 Blood Culture - Preliminary Blood - Venous No growth after 24 hours. 02/26/24 16:12 Blood Culture - Preliminary Blood - Venous No growth after 24 hours. 02/26/24 16:21 Urine Culture - Preliminary Urine clean catch - Clean Catch Midstream Assessment and Plan (1) Sepsis: Status: Acute (2) Urinary tract infection: Status: Acute Plan d3 69yo M with HTN, HLD, DM2, BPH, hx prostate CA, mandibular CA, BPH, hypothyroidism, mood disorder presenting with 1d of chills, dysuria, urinary frequency admitted for sepsis due to UTI severe sepsis due to UTI - ceftriaxone 02/25-, follow BCx/UCx - lactate normalized hypoMg - repleted HTN - holding amlodipine, chlorthalidone; resume losartan today BPH - continue tamsulosin HLD - continue statin DM2 - basal glargine + correction-dose lispro, DM diet mandibular CA - scheduled for surgery at [facility] 03/08/24; pt to reschedule preop appt mood disorder - continue sertraline hypothyroidism - continue LT4 VTE ppx - enoxaparin dispo - TBD In my clinical judgment, the patient requires continued inpatient hospitalization for the following reasons: IV ABX Total time managing care of this patient today: 35 minutes. Quality Stroke Does the patient have a stroke diagnosis?: No VTE Prior VTE?: No VTE Risk Level:: Medical - moderate - high VTE Device Contraindication: Treatment Not Indicated VTE Drug Contraindication: N/A - Med Ordered
[2024-02-28 10:28] VITALS: TEMP 37.4
[2024-02-28] MEDS: Losartan Potassium 50 MG TABLET 100 MG PO (10:31)
[2024-02-28] MEDS: Nystatin/Triamcinolone Cream 15 GM TUBE 1 APPL TOPICAL ×2 (10:31→19:08)
[2024-02-28 11:24] LABS: Glucose, Whole Blood 144 mg/dL (60-115)
[2024-02-28 14:58] VITALS: BP 136/63; PULSE 71; RESP 18; TEMP 37; O2SAT 97
[2024-02-28 16:05] LABS: Glucose, Whole Blood 220 mg/dL (60-115)
[2024-02-28] MEDS: Insulin Lispro 100 UNIT/ML 3 ML VIAL SUBCUT ×2 (16:26→20:26)
[2024-02-28 19:01] VITALS: BP 152/70; PULSE 62; RESP 16; TEMP 36.8; O2SAT 97
[2024-02-28] MEDS: Tamsulosin HCL 0.4 MG CAPSULE PO (19:03)
[2024-02-28] MEDS: Enoxaparin Sodium 40 MG/0.4 ML SYRINGE SUBCUT (19:03)
[2024-02-28] MEDS: cefTRIAXone sodium 2 GM in 0.9 % Sodium Chloride 50 ML IV (19:03)
[2024-02-28 20:16] LABS: Glucose, Whole Blood 173 mg/dL (60-115)
[2024-02-28] MEDS: Insulin Glargine,Hum.rec.anlog 100 UNIT/ML 10 ML VIAL 50 UNIT SUBCUT (20:27)
[2024-02-28] MEDS: Zolpidem Tartrate 5 MG TABLET PO (22:25)
[2024-02-28] MEDS: Melatonin 3 MG TABLET 6 MG PO (22:25)
[2024-02-29 03:07] VITALS: BP 141/70; PULSE 55; RESP 18; TEMP 36.6; O2SAT 96
[2024-02-29] MEDS: Omeprazole 20 MG CAPSULE.DR PO (05:23)
[2024-02-29] MEDS: Levothyroxine Sodium 50 MCG TABLET PO (05:23)
[2024-02-29 07:14] LABS: Glucose, Whole Blood 80 mg/dL (60-115)
[2024-02-29 07:34] VITALS: BP 130/67; PULSE 66; RESP 16; TEMP 36.8; O2SAT 97
[2024-02-29 08:10] VITALS: BP 130/67; PULSE 66; O2SAT 97
[2024-02-29] MEDS: Cholecalciferol (Vitamin D3) 25 MCG TABLET 50 MCG PO (08:33)
[2024-02-29] MEDS: 0.9 % Sodium Chloride Flush 3 ML SYRINGE IVFLUSH (08:33)
[2024-02-29] MEDS: Atorvastatin Calcium 10 MG TABLET PO (08:33)
[2024-02-29] MEDS: Losartan Potassium 50 MG TABLET 100 MG PO (08:34)
[2024-02-29] MEDS: Nystatin/Triamcinolone Cream 15 GM TUBE 1 APPL TOPICAL (08:34)
[2024-02-29] MEDS: Sertraline HCL 50 MG TABLET 150 MG PO (08:34)
--- NOTE | 2024-02-29 10:46 | P.DS_ITS ---
DS: Providers Provider Date of Service: 02/29/24 Date of admission: 02/26/24 19:39 Date of discharge: 02/29/24 Primary care physician: Brea Maciel MD DS: Diagnosis Discharge Diagnosis (1) Urinary tract infection: Status: Acute (2) Severe sepsis: Status: Acute (3) Hypomagnesemia: Status: Acute DS: Summary Hospital Course Hospital Course: From the history and physical by the admitting hospitalist, Chito Augustin MD, 02/26/24: This is a 69-year-old male with pertinent history of hypertension, mixed hyperlipidemia, insulin-dependent diabetes mellitus, BPH, hypothyroidism, mood disorder, oral cancer who presents to the emergency department for evaluation of chills. History was obtained with the help of diplomatic interpreter/translator. Patient developed chills on the day of presentation. Also complains of dysuria and increased urinary frequency. Does not remember if he has had UTI before. Also has been having midline back discomfort. Endorses nonbloody emesis along with the chills. No documented temperature, chest pain, palpitations, shortness of breath, abdominal pain, changes in bowel habits. In the emergency department, patient was found to be septic with elevated lactic acid. Urine concerning for UTI. 69yo M with HTN, HLD, DM2, BPH, hx prostate CA s/p prostatectomy, mandibular CA, BPH, hypothyroidism, and mood disorder presenting with 1d of sudden-onset chills, dysuria, and urinary frequency admitted to the medical-surgical unit for severe sepsis due to UTI. He was treated with IV ceftriaxone for 3 days. Blood cultures negative; urine culture grew cephalosporin-sensitive E. coli. Lactate normalized after IV fluid resuscitation. Magnesium was repleted. He was discharged on 5 days of cefuroxime. Unfortunately, he missed his appointment for preoperative evaluation for planned surgery for mandibular cancer at [facility] and will reschedule upon discharge. He should follow up with his primary care doctor within 1 week. Time Attestation Discharge Coordination Time (in mins): 40 Quality: Safe Use of Opioids Does Pt have an Active Cancer Diagnosis on the Problem List?: No Quality: Stroke Does the patient have a stroke diagnosis?: No Physical Exam Vital Signs: Vital Signs: Last Vital Signs Temp 98.2 F 02/29/24 07:34 Pulse 66 02/29/24 08:10 Resp 16 02/29/24 07:34 BP 130/67 02/29/24 08:10 Pulse Ox 97 02/29/24 08:10 O2 Del Method Room Air 02/29/24 07:34 BMI result Body Mass Index 31.0 Gen: in no acute distress HEENT: sclera anicteric, moist mucus membranes Neck: supple Lungs: clear to auscultation bilaterally Heart: regular rate and rhythm, no murmurs Abd: soft, non-tender, non-distended Ext: no edema Skin: warm/well-perfused Neuro: alert and oriented x3, no focal findings Psych: appropriate affect DS: Data Data Completed and Pending Completed studies during hospitalization [Text1]: Laboratory Results WBC 7.9 X10*3/uL (4.8-10.8) 02/28/24 05:02 RBC 4.31 X10*6/uL (4.60-5.80) L 02/28/24 05:02 Hgb 12.3 g/dl (14.0-18.0) L 02/28/24 05:02 Hct 35.8 % (42.0-52.0) L 02/28/24 05:02 MCV 83.1 fL (80.0-98.0) 02/28/24 05:02 MCH 28.5 pg (27.0-33.0) 02/28/24 05:02 MCHC 34.4 g/dl (31.0-36.0) 02/28/24 05:02 RDW 13.5 % (11.0-16.0) 02/28/24 05:02 Plt Count 168 X10*3/uL (160-400) 02/28/24 05:02 MPV 11.0 fL (9.4-12.4) 02/28/24 05:02 Immature Gran % (Auto) 0.9 % (0.0-0.4) H 02/27/24 05:08 Neut % (Auto) 79.3 % (45-73) H 02/27/24 05:08 Lymph % (Auto) 12.9 % (20-40) L 02/27/24 05:08 [place] % (Auto) 5.8 % (2-11) 02/27/24 05:08 Eos % (Auto) 0.7 % (0-4) 02/27/24 05:08 Baso % (Auto) 0.4 % (0-2) 02/27/24 05:08 Lymph # (Auto) 1.5 X10*3/uL (1.2-4.9) 02/27/24 05:08 [place] # (Auto) 0.7 X10*3/uL (0.1-1.2) 02/27/24 05:08 Eos # (Auto) 0.1 X10*3/uL (0.0-0.4) 02/27/24 05:08 Baso # (Auto) 0.1 X10*3/uL (0.0-0.2) 02/27/24 05:08 Abs Immat Gran (auto) 0.10 X10*3/uL (0.00-0.03) H 02/27/24 05:08 Absolute Neuts (auto) 9.0 x10*3/uL (2.0-8.3) H 02/27/24 05:08 Absolute Nucleated RBC 0.000 X10*3/uL (0.0-0.012) 02/28/24 05:02 Nucleated RBC % (auto) 0.0 /100WBC (0.0-0.2) 02/28/24 05:02 PT 13.8 SEC (10.9-12.4) H 02/26/24 16:21 INR 1.2 (0.9-1.1) H 02/26/24 16:21 Sodium 139 mmol/L (135-145) 02/28/24 05:02 Potassium 3.9 mmol/L (3.3-5.1) 02/28/24 05:02 Chloride 113 mmol/L (96-108) H 02/28/24 05:02 Carbon Dioxide 21 mmol/L (22-29) L 02/28/24 05:02 Anion Gap 9 (12-20) L 02/28/24 05:02 BUN 20 mg/dL (9-16) H 02/28/24 05:02 Creatinine 1.21 mg/dL (0.5-1.4) 02/28/24 05:02 Estim Creat Clear Calc 56.4 02/28/24 05:02 Estimated GFR 60 02/28/24 05:02 POC Glucose 80 mg/dL (60-115) 02/29/24 07:05 Random Glucose 117 mg/dL (60-115) H 02/28/24 05:02 Lactic Acid 3.4 mmol/L (0.5-2.0) H* 02/26/24 16:21 Lactic Acid F/U @ 2Hr 2.0 mmol/L (0.5-2.0) 02/26/24 18:49 Calcium 8.7 mg/dL (8.4-10.2) 02/28/24 05:02 Magnesium 1.9 mg/dL (1.6-2.6) 02/28/24 05:02 Total Bilirubin 0.4 mg/dL (0.0-1.0) 02/28/24 05:02 AST 26 U/L (5-37) 02/28/24 05:02 ALT 35 U/L (0-40) 02/28/24 05:02 Alkaline Phosphatase 99 U/L (39-117) 02/28/24 05:02 Troponin I High Sens < 2.7 ng/L (<3.5-35.0) 02/26/24 15:33 C-Reactive Protein 1.21 mg/dL (< or = 0.50) H 02/26/24 16:21 Total Protein 6.2 g/dL (6.5-8.0) L 02/28/24 05:02 Albumin 3.1 g/dL (3.5-5.0) L 02/28/24 05:02 Lipase 31 U/L (8-78) 02/26/24 15:33 Urine Color Yellow 02/26/24 16:21 Urine Appearance Cloudy 02/26/24 16:21 Urine pH 5.5 (5.0-9.0) 02/26/24 16:21 Ur Specific [place] 1.020 (1.005-1.025) 02/26/24 16:21 Urine Protein 100 (2+) mg/dL (Neg-Trace) H 02/26/24 16:21 Urine Glucose (UA) 250 mg/dL (Negative) H 02/26/24 16:21 Urine Ketones Negative mg/dL (Negative) 02/26/24 16:21 Urine Blood Moderate (2+) (Negative) H 02/26/24 16:21 Urine Nitrite Positive (Negative) H 02/26/24 16:21 Ur Leukocyte Esterase Large (3+) (Negative) H 02/26/24 16:21 Urine RBC 0-2 /HPF (0-2) 02/26/24 16:21 Urine WBC 21-50 /HPF (0-5) 02/26/24 16:21 Ur Squamous Epith Cells 3-5 /HPF (0-2) 02/26/24 16:21 Urine Bacteria 4+ (None Seen) 02/26/24 16:21 Hyaline Casts 0-2 /LPF (0-2) 02/26/24 16:21 Influenza Type A (PCR) NEGATIVE (Negative) 02/26/24 16:21 Influenza Type B (PCR) NEGATIVE (Negative) 02/26/24 16:21 RSV RNA Qual (PCR) NEGATIVE (Negative) 02/26/24 16:21 SARS-CoV-2 RNA (RT-PCR) NEGATIVE (Negative) 02/26/24 16:21 Impressions Abdomen/Pelvis CT 02/26/24 17:23 IMPRESSION: 1. No explanation for abdominal pain. 2. Splenomegaly. 3. Mild fatty infiltration of the liver. 4. Small fat-containing umbilical hernia. Fleischner guidelines were followed. Electronically signed by: Cara Pretty MD 02/26/2024 06:51 PM EDT RP Microbiology 02/26/24 16:21 Urine clean catch - Clean Catch Midstream Urine Culture - Final Escherichia coli 02/26/24 16:21 Blood - Venous Blood Culture - Preliminary No growth after 48 hours. 02/26/24 16:12 Blood - Venous Blood Culture - Preliminary No growth after 48 hours. Discharge Plan Discharge Anticipated Discharge Date/Time: 02/29/24 10:40 Patient Disposition: Home, Self-Care Discharge Diagnosis: sepsis due to UTI Referrals: Brea Maciel MD [Physician] - 1 Week Discharge Medications: New cefuroxime axetil 500 mg tablet 500 mg PO BID Qty: 10 0RF Continued calcipotriene 0.005 % cream 1 appl topical BID cholecalciferol (vitamin D3) [Vitamin D3] 50 mcg (2,000 unit) capsule 50 mcg PO DAILY Trulicity 1.5 mg/0.5 mL pen injector 1.5 mg subcut WE acetaminophen 650 mg tablet extended release 650 mg PO Q6H PRN (Reason: fever or pain) insulin glargine [Lantus U-100 Insulin] 100 unit/mL Solution 68 unit SUBCUT BEDTIME atorvastatin 10 mg Tablet 10 mg PO DAILY sertraline 100 mg Tablet 150 mg PO DAILY metformin 850 mg Tablet 850 mg PO BID chlorthalidone 25 mg Tablet 25 mg PO DAILY amlodipine 10 mg Tablet 10 mg PO DAILY levothyroxine 50 mcg Tablet 50 mcg PO DAILY@0600 losartan 100 mg Tablet 100 mg PO DAILY insulin aspart U-100 [Novolog FlexPen U-100 Insulin] 100 unit/mL (3 mL) Insulin Pen 6 unit SUBCUT TID (DME) FreeStyle Marlen 2 Sensor Kit See Rx Instructions .ROUTE .MEDSUPPLY Qty: 1 Rx Instructions: As directed (DME) lancets [TRUEplus Lancets] 33 gauge misc See Rx Instructions .ROUTE BID Qty: 100 Rx Instructions: As directed omeprazole 20 mg capsule,delayed release(DR/EC) 20 mg PO DAILY tamsulosin 0.4 mg capsule 0.4 mg PO BEDTIME 90 Days Qty: 90 1RF clotrimazole-betamethasone 1-0.05 % cream 1 appl topical BID 28 Days Qty: 45 0RF Rx Instructions: Apply thin coat 2 times per day Discharge Orders: Discharge Order (Routine); Ordered 02/29/24 Ordered By: Da Gomez Diet: Diabetic diet Activity on Discharge: As tolerated Stand Alone Forms: Patient Portal Discharge page Print Language: Burmese Care Plan Goals: recovery from infection Health Concerns: sepsis due to UTI Plan of Treatment: cefuroxime 500 mg twice daily for 5 days Please follow up with your primary care doctor within 1 week. Return to the hospital if you experience recurrent or worsening symptoms. please reschedule your missed appointment with [facility] preoperative clinic Assessment: See Discharge Summary.
[2024-02-29 11:07] LABS: Glucose, Whole Blood 193 mg/dL (60-115)
--- NOTE | 2024-02-29 11:17 | MHC.CM.PN ---
PT WILL DC HOME TODAY WITH NO SERVICES VIA PRIVATE TRANSPORT
--- NOTE | 2024-02-29 11:39 | PC.NURSE ---
ROSIBEL Huffman removed IV and explained discharge instructions to patient
--- NOTE | 2024-02-29 14:02 | P.CDIM_ITS ---
PROVIDER RESPONSE TEXT: To clarify, the appropriate diagnosis supported by the clinical indicators: CKD, please provide stage if known: 3a QUERY TEXT: PHYSICIAN'S DOCUMENTATION REQUEST Date of Query: 02/28/2024 07:52 AM EDT Patient Name: Feliciano Santana Admit Date: 02/26/2024 Dear Da Gomez MD, A review of the medical record indicates additional documentation may be needed. Please review below and update the documentation accordingly. Clinical Indicators: ED 02/25 within Past Medical History: Chronic kidney disease H&P 02/25 within Past Medical History: Chronic kidney disease Please clarify which of the following accurately represents the patient's stage of the noted CKD with in the medical record: CKD, please provide stage if known 1, 2, 3a, 3b, 4 Other (explain) Clinically unable to determine (explain) Thank you, Elba Escobar, CCS, CDIS Use of terms such as suspected, likely, concern for, or probable (associated with a specific diagnosi s that is being evaluated, monitored, or treated as if it exists) are acceptable and can be coded in the inpatient se tting, when documented at the time of discharge. Please use your independent medical judgment in providing your response. THIS QUERY IS PART OF THE PERMANENT MEDICAL RECORD
== END 2024-02-29 12:30 | disposition home or self-care (01) | DRG 872 ==
LOC: HO.ED 19:00 → HO.EDOVER 21:07 → HO.S3 02-27 19:18
PROVIDERS: Nurse Practitioner Family; Physician Assistant Medical; Admitting Provider Student in an Organized Health Care Education/Training Program; Emergency Provider Emergency Medicine Emergency Medical Services; PCP Family Medicine; Visit Provider Family Medicine
DX: A41.9 Sepsis, unspecified organism (principal); B40.0 Acute pulmonary blastomycosis; C41.1 Malignant neoplasm of mandible; R65.20 Severe sepsis without septic shock; N18.31 Chronic kidney disease, stage 3a; E11.22 Type 2 diabetes mellitus with diabetic chronic kidney disease; E11.65 Type 2 diabetes mellitus with hyperglycemia; F39 Unspecified mood [affective] disorder; E78.2 Mixed hyperlipidemia; I12.9 Hypertensive chronic kidney disease with stage 1 through stage 4 chronic kidney disease, or unspecified chronic kidney disease; E83.42 Hypomagnesemia; E03.9 Hypothyroidism, unspecified; Z85.46 Personal history of malignant neoplasm of prostate; B96.20 Unspecified Escherichia coli [E. coli] as the cause of diseases classified elsewhere; Z87.891 Personal history of nicotine dependence; Z20.822 Contact with and (suspected) exposure to COVID-19; Z79.4 Long term (current) use of insulin; Z79.84 Long term (current) use of oral hypoglycemic drugs; Z79.85 Long-term (current) use of injectable non-insulin antidiabetic drugs; Z79.890 Hormone replacement therapy; Z79.899 Other long term (current) drug therapy
CPT/HCPCS: 0241U; 36415; 74177; 80048; 80053; 81001; 82947; 83605; 83690; 83735; 84484; 85025; 85027; 85610; 86140; 87040; 87086; 87088; 87186; 93005; 97161; 99285; J0131; J0696; J1650; J2270; J2405; J2543; J3475; Q9967

== ENCOUNTER → 2024-02-26 15:44 | Outpatient (BNV) | payer OTHER, SELFPAY | PROVIDERS: Emergency Provider Emergency Medicine Emergency Medical Services; Visit Provider Student in an Organized Health Care Education/Training Program | DX: N39.0 Urinary tract infection, site not specified (principal); A41.9 Sepsis, unspecified organism; R65.20 Severe sepsis without septic shock; E83.42 Hypomagnesemia | CPT/HCPCS: 99223; 99232; 99239 ==

== ENCOUNTER 2024-04-16 11:30 | Outpatient (REF) | payer OTHER, SELFPAY ==
[2024-04-16 14:41] LABS: Alanine Aminotransferase 29 U/L (0-40); Albumin Level 3.9 g/dL (3.5-5.0); Alkaline Phosphatase 163 U/L (39-117); Anion Gap 15 (12-20); Aspartate Amino Transferase 33 U/L (5-37); Bilirubin Total 0.6 mg/dL (0.0-1.0); Blood Urea Nitrogen 13 mg/dL (9-16); Calcium 10.2 mg/dL (8.4-10.2); Carbon Dioxide 22 mmol/L (22-29); Chloride 101 mmol/L (96-108); Estimated Glomerular Filt Rate 56; Glucose Random 285 mg/dL (60-115); Potassium 4.1 mmol/L (3.3-5.1); Sodium 134 mmol/L (135-145); Total Protein 7.6 g/dL (6.5-8.0)
== END 2024-04-16 11:31 | disposition home or self-care (01) ==
LOC: HO.CHCLDS 11:30
PROVIDERS: Visit Provider Internal Medicine
DX: E11.9 Type 2 diabetes mellitus without 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s (principal); Z79.4 Long term (current) use of insulin
CPT/HCPCS: 36415; 80053

== ENCOUNTER 2024-06-11 13:58 | Outpatient (AMB) | payer OTHER, SELFPAY ==
--- NOTE | 2024-06-11 14:04 | HO.NEPHOV ---
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 He is a longstanding diabetic and hypertensive. He is known to have proteinuric chronic kidney disease for some time. He recently had diagnosis of head and neck malignancy (throat cancer) and underwent right mandibulectomy, neck exploration, tracheostomy and PEG placement. He monitors his blood sugar which is under good control. He is on multiple antihypertensive medications which is keeping his blood pressure at goal. He does not take any excessive nonsteroidal anti-inflammatories. His proteinuria precedes his recent malignancy. He has seen a title one teacher in [place] long ago. He never had a renal biopsy. His renal function has been fairly stable. He denies nausea, vomiting, diarrhea, chest pain, shortness of breath, paroxysmal nocturnal dyspnea, orthopnea, pedal edema or orthostatic symptoms. He has no family history of any renal disease. 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 Chronic kidney disease Diabetes Hypertension Surgical History History of arthroplasty of knee Hx of radical prostatectomy Social History Household Members: None Housing: Apartment Do you presently have visiting nurse or other home services: No Patient Tobacco Use Status: Former Tobacco user Second Hand Smoke Exposure: No Substance Use Type: Marijuana service: No Review of Systems Const All systems reviewed & are unremarkable except as noted in HPI and below Physical Exam Vital Signs: Last Vital Signs Pulse 78 06/11/24 14:06 BP 134/80 06/11/24 14:06 Pulse Ox 98 06/11/24 14:06 Oxygen Delivery Method Room Air 06/11/24 14:06 BMI result Body Mass Index 25.8 Const General: comfortable and no acute distress Orientation/consciousness: patient oriented x3 HEENT Head: Yes normocephalic Mouth: Normal oral and palatal mucosa present Eyes EOM: EOMs intact bilaterally Neck Neck: Yes supple Resp Auscultation: clear to auscultation bilaterally Cardio Jugular venous distension: no JVD Rate: regular rate GI Palpation (GI): Soft to palpation Auscultation: normal bowel sounds General: Yes no CVA tenderness Back/Spine/Pelvis Back: no CVA tenderness Skin General skin exam: no rashes or lesions noted Neuro General: patient oriented x3 and moves all extremities Extrem General: Yes no pedal edema Results Reviewed Nephrology Results: Hgb 12.3 g/dl (14.0-18.0) L 02/28/24 WBC 7.9 X10*3/uL (4.8-10.8) 02/28/24 Plt Count 168 X10*3/uL (160-400) 02/28/24 Sodium 134 mmol/L (135-145) L 04/16/24 Potassium 4.1 mmol/L (3.3-5.1) 04/16/24 Chloride 101 mmol/L (96-108) 04/16/24 Carbon Dioxide 22 mmol/L (22-29) 04/16/24 BUN 13 mg/dL (9-16) 04/16/24 Creatinine 1.28 mg/dL (0.5-1.4) 04/16/24 Calcium 10.2 mg/dL (8.4-10.2) 04/16/24 Phosphorus 3.1 mg/dL (2.7-4.5) 10/01/23 PTH Intact 52.0 pg/mL (8.7-77.1) 10/01/23 Urine Protein 100 (2+) mg/dL (Neg-Trace) H 02/26/24 Urine Creatinine 43.57 mg/dL 10/01/23 Protein/Creatinin Ratio TNP 10/01/23 Assessment & Plan Assessment & Plan (1) CKD stage 3a, GFR 45-59 ml/min: Code(s): N18.31 - Chronic kidney disease, stage 3a Category: Medical (2) Diabetic nephropathy: Code(s): E11.21 - Type 2 diabetes mellitus with diabetic nephropathy Category: Medical Qualifiers: Diabetes mellitus type: type 2 Qualified Code(s): E11.21 - Type 2 diabetes mellitus with diabetic nephropathy (3) Hypertension: Code(s): I10 - Essential (primary) hypertension Category: Medical Qualifiers: Hypertension type: primary hypertension Qualified Code(s): I10 - Essential (primary) hypertension Plan 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 He has proteinuric care. His renal functions are very close to his baseline. He had a renal ultrasound in the past which did not show any structural abnormalities of the kidney. He is on multiple antihypertensive medications to keep his blood pressure at goal. I ordered workup. He should maintain good hydration. I am considering initiating him on SGLT2 inhibitor at the next visit after reviewing all the evolving data. He is on angiotensin receptor malu. He avoids nonsteroidal anti-inflammatories. I would not make any medication changes today. All these have been explained in great detail. Time spent reviewing all his previous records, current encounter and clinical documentation 57 minutes. Answered all questions and follow-up appointment given. Orders: Orders Calcium Today E11.21 - Type 2 diabetes mellitus with diabetic nephropathy, I10 - Essential (primary) hypertension, N18.31 - Chronic kidney disease, stage 3a Phosphorus Today E11.21 - Type 2 diabetes mellitus with diabetic nephropathy, I10 - Essential (primary) hypertension, N18.31 - Chronic kidney disease, stage 3a Electrolytes Today E11.21 - Type 2 diabetes mellitus with diabetic nephropathy, I10 - Essential (primary) hypertension, N18.31 - Chronic kidney disease, stage 3a Blood Urea Nitrogen Today E11.21 - Type 2 diabetes mellitus with diabetic nephropathy, I10 - Essential (primary) hypertension, N18.31 - Chronic kidney disease, stage 3a Creatinine Today E11.21 - Type 2 diabetes mellitus with diabetic nephropathy, I10 - Essential (primary) hypertension, N18.31 - Chronic kidney disease, stage 3a Parathyroid Hormone Intact Today E11.21 - Type 2 diabetes mellitus with diabetic nephropathy, I10 - Essential (primary) hypertension, N18.31 - Chronic kidney disease, stage 3a Vitamin D 25-OH Total Today E11.21 - Type 2 diabetes mellitus with diabetic nephropathy, I10 - Essential (primary) hypertension, N18.31 - Chronic kidney disease, stage 3a Immunofixation Pnl, Serum Today E11.21 - Type 2 diabetes mellitus with diabetic nephropathy, I10 - Essential (primary) hypertension, N18.31 - Chronic kidney disease, stage 3a Immunofixation, Random Urine Today E11.21 - Type 2 diabetes mellitus with diabetic nephropathy, I10 - Essential (primary) hypertension, N18.31 - Chronic kidney disease, stage 3a Protein Creatinine Ratio, Ur Today N18.31 - Chronic kidney disease, stage 3a Coding Level of Care Code New Pt Level 5 (67685) Diagnoses CKD stage 3a, GFR 45-59 ml/min N18.31 Diabetic nephropathy associated with type 2 diabetes mellitus E11.21 Diabetes mellitus type: type 2 Primary hypertension I10 Hypertension type: primary hypertension
[2024-06-11 14:06] VITALS: BP 134/80; PULSE 78; O2SAT 98; BMI 25.8
== END 2024-06-11 14:27 | disposition home or self-care (01) ==
PROVIDERS: PCP Family Medicine; Referring Provider Family Medicine; Visit Provider Internal Medicine Nephrology
DX: N18.31 Chronic kidney disease, stage 3a (principal); E11.21 Type 2 diabetes mellitus with diabetic nephropathy; I10 Essential (primary) hypertension
CPT/HCPCS: 99205

== ENCOUNTER → 2024-06-11 13:58 | Outpatient (BNVA) | payer OTHER, SELFPAY | PROVIDERS: PCP Family Medicine; Referring Provider Family Medicine; Visit Provider Internal Medicine Nephrology | DX: E11.22 Type 2 diabetes mellitus with diabetic chronic kidney disease (principal); I12.9 Hypertensive chronic kidney disease with stage 1 through stage 4 chronic kidney disease, or unspecified chronic kidney disease; N18.31 Chronic kidney disease, stage 3a; E11.21 Type 2 diabetes mellitus with diabetic nephropathy | CPT/HCPCS: 99202 ==

== ENCOUNTER 2024-07-11 10:07 | Outpatient (REF) | payer OTHER, SELFPAY ==
--- OUTSIDE RECORDS SUMMARY | 2024-07-11 10:55 | XMS_ITS ---
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 Name Role Phone Laura Hogue Primary Care Provider [phone] Medications Medication SIG (Take, Route, Frequency, Duration) Notes Start Date End Date Status Lantus SoloStar 100 UNIT/ML INJECT 60 UNITS UNDER THE SKIN EVERY DAY Subcutaneous daily for 100 days Please dispensed 4 boxes Active Social History Sex Assigned At : Social History Observation Description Sex Assigned At Male Encounters Encounter Location Date Provider Diagnosis [address] [id number] 05/25/2023 Laura Hogue Type 2 diabetes mellitus with diabetic chronic kidney disease E11.22 Assessments Encounter Date Diagnosis (ICD Code) Assessment Notes Treatment Notes Treatment Clinical Notes Section Notes 05/25/2023 Type 2 diabetes mellitus with diabetic chronic kidney disease (ICD-10 - E11.22) Plan Of Treatment Medication Medication Name Sig Start Date Stop Date Notes Lantus SoloStar 100 UNIT/ML INJECT 60 UN ITS UNDER THE SKIN EVERY DAY Subcutaneous daily for 100 days Progress Notes * Feliciano SANTANA MDOB: 1955 (68 yo M)Acc No.[id number]:05/25/2023 Patient:?Steven SANTANA :1955???Age:68 Y???Sex:Male Address:[address] [place] [address] , [address], [place], [address] * Refills? Refill Lantus SoloStar Solution Pen-injector, 100 UNIT/ML, Subcutaneous, 4 Packet, INJECT 60 UNITS UNDER THE SKIN EVERY DAY, daily, 100 days, Refills=3 * true * Date:? Generated for Topher ji/Kanwal/Hernesto on:?07/11/2024 10:55 AM EST
--- OUTSIDE RECORDS SUMMARY | 2024-07-11 10:55 | XMS_ITS | Clinical Summary ---
Author Organization [facility] Address [address] [place] [address] Care Team Providers Care Teacher Of The Deaf Name Role Phone Pcp, Chester Akbar MD Primary Care Provider [phone] Allergies Active Allergy Reactions Criticality Noted Date Comments Liraglutide 06/09/2019 Other reaction(s): did not feel right with it Other reaction(s): did not feel right with it Lisinopril 06/09/2019 Other reaction(s): dry cough Other Other (See Comments) 05/19/2016 NSAIDS, Renal insuffciency Medications Medication Sig Dispensed Refills Start Date End Date Status losartan (COZAAR) 100 MG tablet Take 100 mg by mouth daily. 0 Active sertraline (ZOLOFT) 100 MG tablet Take 150 mg by mouth daily. 0 Active haloperidol (HALDOL) 0.5 MG tablet 4 04/23/2015 Active zolpidem (AMBIEN) 5 MG tablet 4 08/11/2015 Active triamcinolone (KENALOG) 0.5 % cream 3 08/06/2015 Active sertraline (ZOLOFT) 50 MG tablet TK 1 T PO D 0 07/19/2016 Active clobetasol (TEMOVATE) 0.05 % ointment 1 11/15/2016 Active VOLTAREN 1 % GEL topical APPLY DIRECTED Q 6 H PRN FOR PAIN 6 04/05/2017 Active atorvastatin (LIPITOR) tablet 10 mg TK 1 T PO QD 6 04/25/2017 Active pioglitazone (ACTOS) tablet 15 mg TK 1 T PO D 0 04/04/2019 Active Ostomy Supplies (SKIN PREP WIPES) MISCIndications:Diab etes mellitus type 2 with 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s, uncontrolled Skin tac wipes, use to apply marlen sensor 50 each 1 05/19/2019 Active metFORMIN (GLUCOPHAGE) 850 MG tablet Take 1 tablet (850 mg total) by mouth 2 (two) times a day with meals. 30 tablet 3 08/21/2019 Active insulin glargine (LANTUS SOLOSTAR) injection 100 units/mLIndications: Diabetes mellitus type 2 with 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s, uncontrolled Inject 28 Units under the skin daily. 15 mL 3 05/05/2020 Active levothyroxine (SYNTHROID, LEVOXYL) tablet 50 mcg Take 1 tablet (50 mcg total) by mouth daily. 90 tablet 1 08/26/2020 Active amLODIPine (NORVASC) tablet 10 mg 1 tablet 0 12/13/2020 Active Continuous Blood Gluc Sensor (FreeStyle Marlen 14 Day Sensor) MISCIndications:Diab etes mellitus type 2 with 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s, uncontrolled 1 Device by Does not apply route every 14 (fourteen) days. 2 each 07/18/2021 Active glucose blood (OneTouch Verio) test stripIndications:Typ e 2 diabetes mellitus with 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, with long-term current use of insulin (HCC) Use as instructed to test your blood sugar 4 times daily if Marlen failure. 125 each 07/25/2021 Active OneTouch Delica Lancets 33G MISCIndications:Type 2 diabetes mellitus with 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, with long-term current use of insulin (HCC) Use as instructed to test your blood sugar 4 times daily if Marlen failure 200 each 07/25/2021 Active Blood Glucose Monitoring Suppl (OneTouch Verio Flex System) w/Device KITIndications:Type 2 diabetes mellitus with 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, with long-term current use of insulin (HCC) 1 Device by Does not apply route continuous. For Marlen failure 1 kit 0 07/25/2021 Active NovoLOG FLEXPEN 100 UNIT/ML injection ADMINISTER 4 UNITS UNDER THE SKIN THREE TIMES DAILY WITH MEALS 15 mL 0 11/01/2021 Active BD Pen Needle Madeleine 2nd Gen 32G X 4 MM MISC USE DIRECTED FOUR TIMES DAILY 200 each 12/06/2021 Active lidocaine (LIDODERM) 5 % Place 1 patch onto the skin daily. Remove & Discard patch within 12 hours or as directed by 30 patch 0 08/17/2021 Active methocarbamol (ROBAXIN) 750 MG tablet Take 1 tablet (750 mg total) by mouth 3 (three) times a day as needed (pain). 18 tablet 0 08/17/2021 Active traMADol (ULTRAM) 50 MG tablet Take 50 mg by mouth every 8 (eight) hours as needed for pain. 15 tablet 0 08/17/2021 Active Active Problems Problem Noted Date Diagnosed Date Mixed hyperlipidemia 05/10/2017 Hypothyroidism (acquired) 04/10/2017 Obstructive sleep apnea syndrome 08/18/2015 Diabetes mellitus type 2 with 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s, unc ontrolled 06/16/2015 Hypertension 06/16/2015 Snoring 06/16/2015 Fatigue due to sleep pattern disturbance 016 Immunizations Name Administration Dates Next Due Adacel (Tdap) 08/17/2021 Family History Medical History Relation Name Comments Diabetes Mother Relation Name Status Comments Mother Social History Tobacco Use Types Packs/Day Years Used Date Smoking Tobacco: Never Alcohol Use Standard Drinks/Week Comments No 0 (1 standard drink = 0.6 oz pur e alcohol) Sex and Gender Information Value Date Recorded Sex Assigned at Choose not to disclose 07/2018 3:11 PM EDT Gender Identity Not on file Sexual Orientation Not on file Job Start Date Occupation Industry Not on file Not on file Not on file Last Filed Vital Signs Vital Sign Reading Time Taken Comments Blood Pressure 120/72 08/17/2021 12:50 PM EDT Pulse 77 08/17/2021 12:50 PM EDT Temperature 36.7 ??C (98.1 ??F) 08/17/2021 12:50 PM E DT Respiratory Rate 16 08/17/2021 12:50 PM EDT Oxygen Saturation 98% 08/17/2021 12:50 PM EDT Inhaled Oxygen Concentration - - Weight 80.1 kg (176 lb 9.6 oz) 12/14/2020 8:41 A M EDT Height 162.6 cm (5' 4 ) 07/16/2020 8:17 AM EST Body Mass Index 30.31 07/16/2020 8:17 AM EST Plan of Treatment Health Maintenance Due Date Last Done Comments Hepatitis C Screening 1955 COVID-19 Vaccine (#1) 1955 Pneumococcal Vaccine (1 of 2 - PCV) 02/06/1962 Depression Screening 1968 Diabetes: Eye Exam (No Retinopathy) 02/06/1974 Diabetes: Foot Exam 02/06/1974 Preventative Health Evaluation 02/06/1974 Colon Cancer Screening (Colonoscopy) 02/06/2001 Breast Cancer Screening (Mammogram) 02/06/2006 Shingrix-Zoster Vaccine (1 of 2) 02/06/2006 RSV Adult > 60+ Yrs or (1 - Risk 60-74 years 1-dose series) 2016 BMI Counseling 07/03/2020 07/03/2019, 05/04, 01/23/2019, Additional history exists Fall Risk Assessment 02/06/2021 Osteoporosis Screening (DEXA Scan) 02/06/2021 Hemoglobin A1C Due 05/26/2021 11/24/2020, 1 06/15/2019, 01/06/2020, Additional history exists Diabetes: Microalbumin Test 11/24/202111/03, 03/13/2019, 01/25/2018, Additional history exists Influenza Vaccine (#1) 2024 02/24/2018 DTap / Tdap / Td (3 - Td or Tdap) 08/18/2031 08/17/2021, 03/05/2018 Hepatitis B Vaccines Aged Out No long er eligible based on patient's age to complete this topic RSV Ped < 20 months Aged Out No longe r eligible based on patient's age to complete this topic Goals Goal Patient Goal Type Associated Problems Recent Progress Patient-Stated? Author Carry glucose tablets [facility] Kimberlyn Coyle, RN Take Novolog 5-10 minutes before each meal [facility] Kimberlyn Coyle, RN Schedule eye exam [facility] Kimberlyn Coyle, RN Check BG TID before breakfast, lunch and dinner and keep log [facility] Kimberlyn Coyle, RN Care Teams Teacher Of The Deaf Relationship Specialty Start Date End Date Pcp, Chester Akbar MD [address] [place] [address] PCP - General Employment Program Representative 08/17/21
--- OUTSIDE RECORDS SUMMARY | 2024-07-11 10:55 | XMS_ITS | Clinical Summary ---
Author Organization [facility] Address [address] [place] [address] Care Team Providers Care Gear Lapping Machine Operator Name Role Phone LennieLoriefrances ESTRADA Primary Care Provider [phone] Apple Villatoro DO Unavailable [phone] Allergies Active Allergy Reactions Criticality Noted Date Comments Liraglutide Unknown/Patient and Family Unable to Define Medium 06/09/2019 Other reaction(s): did not feel right with it Lisinopril Unknown/Patient and Family Unable to Define Medium 06/09/2019 Other reaction(s): dry cough Other reaction(s): dry cough Other Other (See Comments),Unknown/Nicol ent and Family Unable to Define Medium 11/25/2015 NSAIDS, Renal insuffciency NSAIDS, Renal insuffciency NSAIDS, Renal insuffciency Medications Medication Sig Dispensed Refills Start Date End Date Status INSULIN GLARGINE 100 UNIT/ML pen injection Inject 30 Units under the skin nightly. 11 11/15/2015 Active levothyroxine (SYNTHROID, LEVOTHROID) 50 MCG tablet Take 1 tablet (50 mcg total) by mouth every morning. 1 09/28/2015 Active sertraline (ZOLOFT) 100 MG tablet Take 1.5 tablets (150 mg total) by mouth daily. 4 11/13/2015 Active amLODIPine (NORVASC) 10 MG tablet Take 1 tablet (10 mg total) by mouth daily. 11/16/2015 Active atorvastatin (LIPITOR) 10 MG tablet Take 1 tablet (10 mg total) by mouth daily. 6 01/27/2018 Active chlorthalidone (HYGROTON) 25 MG tablet Take 1 tablet by mouth every morning with food 07/20/2019 Active fluticasone (FloNASE) 50 mcg/spray nasal spray Shake liquid and use 1 spray in each nostril daily 08/15/2019 Active PANTOprazole (PROTONIX) 20 MG tablet Take 1 tablet (20 mg total) by mouth daily. 08/21/2019 Active Blood Pressure Monitor Device See Admin Instructions. Active Continuous Blood Gluc Vp Foundation (FreeStyle Marlen 2 Tully) Device 1 PER YEAR Active Continuous Blood Gluc Sensor (FreeStyle Marlen 2 Sensor) [facility] See Admin Instructions. 10/28/2021 Active ibuprofen (MOTRIN) 600 MG tablet Take 1 tablet (600 mg total) by mouth 3 (three) times a day as needed for mild pain (pain). 20 tablet 10/03/2022 Active acetaminophen (TYLENOL) 500 MG tablet Take 1 tablet (500 mg total) by mouth 4 times daily (every 6 hours) as needed for mild pain (pain). 20 tablet 10/03/2022 Active metFORMIN (GLUCOPHAGE) 850 MG tablet 1 tablet with a meal Active Active Problems Problem Noted Date Diagnosed Date Lightheadedness 03/01/2023 Stage 3a chronic kidney disease 02/12/2023 Cough 08/26/2019 Suspected COVID-19 virus infection 08/26/2019 Lower abdominal pain 08/26/2019 Type 2 diabetes mellitus wit hout 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, with long-term current use of insulin 08/26/2019 Reactive depression 08/26/2019 Vasovagal syncope 03/05/2018 JUN on CPAP 03/05/2018 Essential hypertension 03/05/2018 Mixed hyperlipidemia 03/05/2018 Type 2 diabetes mellitus wit hout 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, with long-term current use of insulin 03/05/2018 Stage 1 chronic kidney disease 03/05/2018 Prostate cancer 11/25/2015 Erectile dysfunction following radical prostatec jonathan 11/25/2015 Resolved Problems Problem Noted Date Diagnosed Date Resolved Date Sepsis 08/27/2019 08/16/2023 Fever and chills 08/26/2019 08/16/2023 Community acquired pneumonia 08/26/2019 08/16/2023 Immunizations Name Administration Dates Next Due Influenza (AFLURIA/FLUZONE) Inactivated/Split Quadrivalent with Preservative IM 02/24/2018 Tdap 03/05/2018 Family History Medical History Relation Name Comments Colon cancer Father Colon polyps Neg Hx Esophageal cancer Neg Hx Stomach cancer Neg Hx Relation Name Status Comments Father Mother Alive Social History Tobacco Use Types Packs/Day Years Used Date Smoking Tobacco: Former Smokeless Tobacco: Never Tobacco Cessation:Counseling Given: Not Answered Comments:quit smoking 32 years ago as per pt Alcohol Use Standard Drinks/Week Comments No 0 (1 standard drink = 0.6 oz pur e alcohol) AUDIT-C Answer Date Recorded Q1: How often do you have a drink containing alcohol? Never 03/01/2023 Q2: How many drinks containi ng alcohol do you have on a typical day when you are drinking? Patient does not drink Q3: How often do you have si x or more drinks on one occasion? Never 03/01/2023 Sex and Gender Information Value Date Recorded Sex Assigned at Male 10/03/2022 12:28 PM EDT Gender Identity Male 10/03/2022 12:28 PM EDT Sexual Orientation Heterosexual (straight) 10/03 12:28 PM EDT Last Filed Vital Signs Vital Sign Reading Time Taken Comments Blood Pressure 126/73 04/04/2023 1:56 PM EDT Pulse 80 04/04/2023 1:56 PM EDT Temperature 36.1 ??C (96.9 ??F) 04/04/2023 1:56 PM ED T Respiratory Rate 18 03/01/2023 2:05 PM EDT Oxygen Saturation 100% 04/04/2023 1:56 PM EDT Inhaled Oxygen Concentration - - Weight 72.5 kg (159 lb 14.4 oz) 04/04/2023 1:56 PM EDT Height 162.6 cm (5' 4 ) 04/04/2023 1:56 PM EDT Body Mass Index 27.45 04/04/2023 1:56 PM EDT Plan of Treatment Health Maintenance Due Date Last Done Comments Hepatitis C Virus Screening 1955 Foot Exam 02/06/1966 Ophthalmology Exam 02/06/1966 Pneumococcal Vaccines 50+ (1 of 2 - PCV) 02/06/1975 Zoster (Shingles) Vaccine (1 of 2) 02/06/1975 RSV Vaccine 60 years and older and Patients (1 - Risk 60-74 years 1-dose series) 2016 Lipid Panel 03/06/2019 03/06/2018 COVID-19 Vaccine (3 - Moderna risk series) 11/11/2020 10/14/2020, 09/14/2020 Hemoglobin A1C 05/26/2021 11/24/2020, 08/0 09/2019, 08/27/2019, Additional history exists Influenza Vaccine 01/03/2024 02/24/2018, 02/24/2018 Microalbumin/Creatinine Ratio Urine 02/13/2024 02/12/2023, 11/24/2020, 03/13/2019 Creatinine with GFR 02/29/2024 02/28/2023, 10/03/2022, 08/18/2021, Additional history exists Colonoscopy 04/06/2025 04/06/2020, 07/06 (Previously Completed), 07/31/2018 DTaP/Tdap/Td Vaccines (2 - Td or Tdap) 03/05/2028 03/05/2018 Abdominal Aortic Aneurysm (AAA) Screening Discontinued 08/26/2019, 09/11/2018 Hepatitis B Vaccines Aged Out No long er eligible based on patient's age to complete this topic Procedures Procedure Name Priority Date/Time Associated Diagnosis Comments COMPREHENSIVE METABOLIC PANEL STAT 02/28/2023 1:22 PM EDT POCT MICROALBUMIN, URINE, QUANTITATIVE Routine 02/12/2023 10:37 AM EDT Stage 3a chronic kidney disease (HCC) Essential hypertension HEMOGLOBIN A1C WITH ESTIMATED AVERAGE GLUCOSE Routine 08/27/2019 7:[address] ABDOMEN+PELVIS W/CONTRAST STAT 08/26/2019 4:24 PM EDT LIPID PANEL Routine 03/06/2018 7:31 AM EDT from Last 3 Months or Most Recently Relevant to Health Maintenance Results * (ABNORMAL) Comprehensive Metabolic Panel (02/28/2023 1:22 PM EDT) [facility] Signature Glucose 409(HH) 65 - 99 mg/dL 02/28/2023 2:17 PM EDT [facility] Comment:Fasting: <100 mg/dL, Non-Fasting: <200 mg/dL (ADA 2005) Blood Urea Nitrogen (BUN) 42(H) 8 - 21 mg/dL 02/28/2023 2:17 PM [facility] Creatinine 1.5(H) 0.5 - 1.3 mg/dL 02/28/2023 2:17 PM [facility] eGFR 51(L) >59 02/28/2023 2:17 PM [facility] Comment:CKD-EPI (2020) in mL /min/1.73 sq meters. Sodium 133(L) 136 - 145 mmol/L 02/28/2023 2:17 PM [facility] Potassium 3.7 3.4 - 5.3 mmol/L 02/28/2023 2:17 PM [facility] Chloride 95(L) 98 - 107 mmol/L 02/28/2023 2:17 PM [facility] CO2 25 22 - 33 mmol/L 02/28/2023 2:17 PM [facility] Calcium 9.7 8.7 - 10.5 mg/dL 02/28/2023 2:17 PM [facility] Alkaline Phosphatase 105 45 - 128 U/L 02/28/2023 2:17 PM [facility] Aspartate Aminotrans (AST) 40 10 - 55 U/L 02/28/2023 2:17 PM [facility] Alanine Aminotrans (ALT) 59(H) 10 - 55 U/L 02/28/2023 2:17 PM [facility] Bilirubin, Total 0.5 0.2 - 1.0 mg/dL 02/28/2023 2:17 PM [facility] Protein, Total 7.7 6.3 - 8.3 g/dL 02/28/2023 2:17 PM [facility] Albumin 4.2 3.4 - 4.8 g/dL 02/28/2023 2:17 PM [facility] BUN/Creatinine Ratio 28(H) 10.0 - 25.0 Ratio 02/28/2023 2:17 PM [facility] Globulin 3.5 1.5 - 3.9 g/dL 02/28/2023 2:17 PM [facility] Albumin/Globulin Ratio 1.2 1.0 - 3.0 Ratio 02/28/2023 2:17 PM [facility] Anion Gap 13 7 - 17 02/28/2023 2:17 PM [facility] Blood specimen (specimen) (Plasma/Serum) 02/28/2023 1:22 PM EDT 02/28/2023 1:48 PM EDT [facility] BLOOD ORDERABLES [facility]ITAL LAB See Below [facility] [address] [place] [address] * POCT Microalbumin (02/12/2023 10:37 AM EDT) Microalbumin, POC 10.0 MG/L Creatinine Urine, POC 100.0 MG/DL Microalbumin/Cr eat Ratio, POC <30 MG/G Lot Number [id number] Director Client Pass Pass Urine 02/12/2023 10:3 7 AM EDT Amor Velasco MD POINT OF CARE TEST O RDERABLES * (ABNORMAL) Hemoglobin A1c with Estimated Average Glucose (08/27/2019 7:44 AM EDT) Hemoglobin A1C 10.2(H) <5.7 % [facility] Comment: A1c% ? Interpretation 5.7 - 6.0 ?Increase risk of diabetes 6.1 - 6.4 ?Higher risk of diabetes > or = 6.5 ?? Consistent with diabetes Diabetes Care, 33(Supp 1):S1-S61, 2010 Estimated Average Glucose 246 mg/dL [facility] Blood specimen (specimen) Heel structure / Unknown 08/27/2019 7:44 AM EDT 08/27/2019 8:31 AM EDT Jennifer Monterroso MD LAB BLOOD ORDERABL ES [facility]PITAL [facility] * CT Abdomen+pelvis w/contrast (08/26/2019 4:24 PM EDT) Anatomical Region Laterality Modality Abdomen, Pelvis Computed Tomogra phy 08/26/2019 4:26 PM EDT Impressions 08/26/2019 4:58 PM EDT 1. ??Multifocal patchy ground glass opacities in the right middle and left upper lobes which may be due to infectious or inflammatory etiology. Considerations include multifocal pneumonia. 2. ??No evidence of colitis. 3. ??Slightly nodular hepatic contour and borderline splenomegaly. 4. ??Status post prostatectomy. Artis Ross M.D. Resident Physician I personally reviewed the images and, if necessary, I edited the report. I agree with the report as now presented. Narrative 08/26/2019 4:[address] ABDOMEN AND PELVIS WITH IV CONTRAST CLINICAL INFORMATION: Abdominal pain/sepsis/hx of prostate cancer. ??R/o colitis. COMPARISON: CT abdomen 12/31/2018. CT abdomen and pelvis 10/01/2018 and 07/08/2015. ?? TECHNIQUE: Multidetector volumetric imaging was performed from the superior aspect of the liver through the pubic symphysis following administration of 80 mL of Omnipaque 350 ??intravenous contrast. Sagittal and coronal reformatted images were obtained on the technologist workstation. Oral contrast: No. DLP: 460.67 mGy-cm FINDINGS: LUNG BASES: Multifocal patchy ground glass opacities in the right middle and left upper lobes. Dependent atelectasis within the right and left lower lobes. LIVER, GALLBLADDER, AND BILIARY TREE: The liver is normal in size and demonstrates a slightly nodular contour. No focal hepatic lesion or biliary ductal dilatation is present. The gallbladder is unremarkable with no evidence of radiopaque gallstones, gallbladder wall thickening, or obvious pericholecystic inflammatory changes. PANCREAS: Unremarkable. SPLEEN: Spleen is borderline enlarged by volume. ?? ADRENAL GLANDS: Unremarkable. KIDNEYS AND URETERS: Scarring in the midpole of the left kidney. The kidneys are normal in size and symmetric and attenuation. No evidence of hydronephrosis or hydroureter. Subcentimeter hypoattenuating foci bilaterally are too small to characterize and statistically likely represent renal cysts. BLADDER: No bladder wall thickening. No bladder calculi. GASTROINTESTINAL TRACT: The stomach is decompressed and therefore not well evaluated on this exam. The small bowel is of normal caliber without regions of abnormal wall enhancement. The colon is normal in appearance without focal wall thickening or pericolonic inflammatory change. Normal appendix. ABDOMINAL WALL: Tiny fat-containing umbilical hernia. ?? LYMPHOVASCULAR STRUCTURES: Stable enlarged periportal node measuring 1.1 cm in short axis (series 2 image 26/98) compared to 2016. The aorta is unremarkable. PELVIC VISCERA: Status post prostatectomy. The seminal vesicles are unremarkable. OSSEOUS STRUCTURES: No acute or suspicious osseous abnormality. Procedure Note Marty Mercado MD - 08/26/2019 CT ABDOMEN AND PELVIS WITH IV CONTRAST CLINICAL INFORMATION: Abdominal pain/sepsis/hx of prostate cancer. R/o colitis. COMPARISON: CT abdomen 12/31/2018. CT abdomen and pelvis 10/01/2018 and 07/08/2015. TECHNIQUE: Multidetector volumetric imaging was performed from the superior aspect ofthe liver through the pubic symphysis following administration of 80 mL of Omnipaque 350 intravenous contrast. Sagittal and coronal reformattedimages were obtained on the technologist workstation. Oral contrast: No. DLP: 460.67 mGy-cm FINDINGS: LUNG BASES: Multifocal patchy ground glass opacities in the right middleand left upper lobes. Dependent atelectasis within the right and left lowerlobes. LIVER, GALLBLADDER, AND BILIARY TREE: The liver is normal in size and demonstrates a slightly nodular contour. No focal hepatic lesion orbiliary ductal dilatation is present. The gallbladder is unremarkable with noevidence of radiopaque gallstones, gallbladder wall thickening, or obvious pericholecystic inflammatory changes. PANCREAS: Unremarkable. SPLEEN: Spleen is borderline enlarged by volume. ADRENAL GLANDS: Unremarkable. KIDNEYS AND URETERS: Scarring in the midpole of the left kidney. Thekidneys are normal in size and symmetric and attenuation. No evidence of hydronephrosis or hydroureter. Subcentimeter hypoattenuating focibilaterally are too small to characterize and statistically likely represent renalcysts. BLADDER: No bladder wall thickening. No bladder calculi. GASTROINTESTINAL TRACT: The stomach is decompressed and therefore notwell evaluated on this exam. The small bowel is of normal caliber withoutregions of abnormal wall enhancement. The colon is normal in appearance withoutfocal wall thickening or pericolonic inflammatory change. Normal appendix. ABDOMINAL WALL: Tiny fat-containing umbilical hernia. LYMPHOVASCULAR STRUCTURES: Stable enlarged periportal node measuring 1.1cm in short axis (series 2 image 26/98) compared to 2016. The aorta isunremarkable. PELVIC VISCERA: Status post prostatectomy. The seminal vesicles are unremarkable. OSSEOUS STRUCTURES: No acute or suspicious osseous abnormality. IMPRESSION: 1. Multifocal patchy ground glass opacities in the right middle andleft upper lobes which may be due to infectious or inflammatory etiology. Considerations include multifocal pneumonia. 2. No evidence of colitis. 3. Slightly nodular hepatic contour and borderline splenomegaly. 4. Status post prostatectomy. Artis Ross M.D. Resident Physician I personally reviewed the images and, if necessary, I edited the report.I agree with the report as now presented. Jennifer Monterroso MD [facility] CT ORDERABLES * Lipid Panel (AM) (03/06/2018 7:31 AM EDT) Cholesterol, Total 135 <200 mg/dL [facility] AB Triglycerides 120 <150 mg/dL [facility] Cholesterol, HDL 44 >39 mg/dL [facility] Estimated LDL 67 <130 mg/dL [facility] Comment: NCEP Guidelines: ?< 100 mg/dL ??Optimal 100 - 129 mg/dL ??Near Optimal/Above Optimal 130 - 159 mg/dL ??Borderline High 160 - 189 mg/dL ??High ??>/= 190 mg/dL ??Very High Cholesterol/HDL Ratio 3.1 0.0 - 5.0 Ratio [facility] Comment: Relative Risk ? Ratio - Male ? Ratio - Female ?0.5 ?3.4 ?3.3 ?1.0 ?5.0 ?4.4 ?2.0 ?9.6 ?7.1 ?3.0 ? 23.4 ? 11.0 Blood specimen (specimen) Blood specimen / Unknown 03/06/2018 7:31 AM EDT 03/06/2018 7:56 AM EDT Radha Carter NATALIE LAB BLOOD ORDERABLES [facility] from Last 3 Months or Most Recently Relevant to Health Maintenance Advance Directives * Full Code (Latest Code Status on File) Date Activated Date Inactivated Comments 03/01/2023 1:07 AM * Full Code Date Activated Date Inactivated Comments 08/26/2019 12:35 PM 04/06/2020 7:42 AM Question Answer Comments Decision Thoroughly Discussed with: Patient * Full Code Date Activated Date Inactivated Comments 03/05/2018 5:31 PM 07/31/2018 7:34 AM Question Answer Comments Decision Thoroughly Discussed with: Patient Care Teams Gear Lapping Machine Operator Relationship Specialty Start Date End Date Laura Hogue APRN [address] [place] [address] PCP - General Family Medicine 09/04/19 Apple Villatoro DO [address] [place] [id number] Channeling Machine Operator Cardiovascular Disease 04/12/23
--- OUTSIDE RECORDS SUMMARY | 2024-07-11 10:55 | XMS_ITS ---
Author Organization [facility] Address [address] [place] [phone] Care Team Providers Care Professor Of Counseling Name Role Phone Laura Hogue Primary Care Provider [phone] REASON FOR VISIT Mail returned Social History Sex Assigned At : Social History Observation Description Sex Assigned At Male Encounters Encounter Location Date Provider Diagnosis 21-Internal Medicine [address] [place] [id number] 05/17/2023 Laura Hogue Plan Of Treatment No Information Progress Notes * Feliciano ORTIZ MDOB: 1955 (68 yo M)Acc No.[id number]:05/17/2023 Patient:?Steven ORTIZ :1955???Age:68 Y???Sex:Male Address:[address] [place] [address] , [address], [place], [address] * true * Date:? Generated for Enricoi margy/Kanwal/eTransmitting on:?07/11/2024 10:55 AM EST
--- OUTSIDE RECORDS SUMMARY | 2024-07-11 10:56 | XMS_ITS | Encounter Summary ---
Author Organization [employer] Address [address] [place] [address] Care Team Providers Care Toilet Products Molder Name Role Phone Brea Maciel MD Primary Care Provider [phone] Reason for Visit * Reason Comments OTV Encounter Details Date Type Department Care Team (Latest Contact Info) Description 06/30/2024 1:26 PM EST - 06/30/2024 11:59 PM [facility] Hospital Encounter [facility] Radiation Oncology [address] [place] [phone] Lázaro Campuzano MD [address] [facility] [address] [place] [address] Head and neck cancer (CMS/HCC) (Primary Dx) Discharge Disposition: Home or Self Care Social History Tobacco Use Types Packs/Day Years Used Date Smoking Tobacco: Former Cigarettes Smokeless Tobacco: Never Alcohol Use Standard Drinks/Week Comments No 0 (1 standard drink = 0.6 oz pur e alcohol) Sex and Gender Information Value Date Recorded Sex Assigned at Not on file Gender Identity Not on file Sexual Orientation Not on file Job Start Date Occupation Industry Not on file Not on file Not on file documented as of this encounter Medications at Time of Discharge Medication Sig Dispensed Refills Start Date End Date acetaminophen (TYLENOL) 325 mg tablet Take 3 tablets (975 mg total) by mouth every 6 hours as needed. 04/10/2024 Alcohol Prep Pads pads, medicated USE 2 PADS FOUR TIMES DAILY 09/21/2023 amLODIPine (NORVASC) 10 mg tablet Take 1 tablet (10 mg total) by mouth daily. 11/16/2015 aspirin 81 mg chewable tablet Chew 1 tablet (81 mg total) daily. 04/10/2024 atorvastatin (LIPITOR) 10 mg tablet Take 1 tablet (10 mg total) by mouth daily. 01/27/2018 BD Madeleine 2nd Gen Pen Needle 32 gauge x 5/32 needle use to inject insulin BD Ultra-Fine Mini Pen Needle 31 gauge x 3/16 needle USE WITH LANTUS UNDER THE SKIN DAILY 07/13/2023 betamethasone valerate (VALISONE) 0.1 % ointment APPLY TOPICALLY TO THE AFFECTED AREA(S) TWICE DAILY IN THE MORNING AND AT BEDTIME DIRECTED blood pressure test kit-large kit USE TO CHECK BLOOD PRESSURE ONCE DAILY IN THE MORNING DIRECTED 08/16/2023 blood sugar diagnostic (FreeStyle Lite Strips) test strip USE TO TEST BLOOD SUGAR FOUR TIMES DAILY 09/21/2023 chlorhexidine (PERIDEX) 0.12 % solution Use 15 mL in the mouth or throat 4 times daily. 04/10/2024 cholecalciferol (VITAMIN D-3) 50 mcg (2,000 unit) capsule Take 50 mcg by mouth daily. 04/18/2024 doxepin (SINEquan) 10 mg capsule Take 1 capsule (10 mg total) by mouth. at bedtime dulaglutide (Trulicity) 0.75 mg/0.5 mL pen injector injection Inject into the skin. FreeStyle Lite Meter monitoring kit 09/23/2023 insulin glargine (LANTUS SoloStar) 100 unit/mL (3 mL) injection pen Inject 24 Units under the skin daily. 11/15/2015 insulin lispro 100 unit/mL injection Inject 0-20 Units under the skin 5 times daily. 03/25/2024 levothyroxine (SYNTHROID, LEVOTHROID) 50 mcg tablet Take 1 tablet (50 mcg total) by mouth daily. 09/28/2015 nystatin (MYCOSTATIN) 100,000 unit/mL suspension Take 5 mL by mouth 4 (four) times a day for 14 days. Swish and swallow. Do not eat or drink for 30 min afterwards 280 mL 06/27/2024 07/11/2024 omeprazole (PriLOSEC) [address] capsule Take 1 capsule (20 mg total) by mouth daily. 04/10/2024 secukinumab (Cosentyx Pen) 150 mg/mL pen injector 03/02/2023 sertraline (ZOLOFT) 100 mg tablet Take 1 tablet (100 mg total) by mouth daily. 11/13/2015 traZODone (DESYREL) 50 mg tablet Take by mouth at bedtime. documented as of this encounter Discharge Disposition Disposition Code Departure Means Destination Home or Self Care documented in this encounter Progress Notes * Brea Plunkett RN - 06/30/2024 1:50 PM EST Pt brought around by therapists with concerns about facial swelling. Pt's skin is getting brisk andsore per pt. Pt was explained to that this is part of tx reaction. Pt was seen by Dr. Camarena for assessment. * Lázaro Campuzano MD - 06/30/2024 1:50 PM EST Radiation Oncology On Treatment Visit Patient Name: Feliciano Coronado Attending Provider: Lázaro Campuzano MD Encounter Date: 06/30/2024 DIAGNOSIS: 1. Head and neck cancer (CMS/HCC) Diagnosis: Right lower gingiva squamous cell carcinoma, grade 2, 2.5 cm. Depth of invasion 15 mm. Tumor erodes surface of bone without invading into or through the cortex. Lymph nodes negative. Positive for lymphovascular and perineural invasion. Margins negative. pT3 pN0 03/06/2024-right mandibulectomy with composite resection of oral cancer with right neck dissection, split thickness skin graft, free flap, tracheostomy, teeth extractions by Dr. 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 Pt declined chemo. Med onc Dr. Chang Accompanied by: self and in demand cyber security administrator Bg # [id number] Subjective: Are you experiencing any fatigue? No Are you experiencing any skin reactions? Yes pt with tanning/erythema to face and neck. Pt reports swelling at the surgical site. Are you experiencing any phlegm, dryness, taste changes? Yes. A lot of dryness and he constantly drinks water. He says that everything he eats is flavorless. Are you experiencing any pain or difficulty swallowing? No Are you using any mouth rinse? Has stopped chlorhexidene, now using salt/baking soda rinses Are you using any lotions to the treatment site? Yes using what Dr. Flanagan gave him. Any oral intake? Yes, cornbeef, white rice, beans and chicken. Are you seeing a curb builder or speech language pathologist? Yes Does patient have a g-tube? Yes . If so, How many cans per day are you using via g-tube? N/A Any problems with the tube or tube site? No, flushing tube twice daily. Pt reports lip is no longer painful and bleeding . Saw oral surgeon 06/20/24 Dr. Lu. Pt says that he said surgery site looked fine. Physical Exam: There were no vitals filed for this visit. Weight on 05/30/24 on 150 lb. General: appears well, no apparent distress; awake and alert Manual examination of his oral cavity reveals well-healing composite resection and right construction. No palpable mass could be appreciated on either the medial or lateral aspect of the reconstruction. No signs of infection. Patient has ~1cm patch of mucositis on right lower lip, now resolved Few patches of thrush on tongue and on graft site. Skin of neck intact but with mod erythema Assessment/Plan: He is tolerating treatments well. Continue radiation as scheduled. I have reviewed CBCT. Patient asking about when he can get dentures. I recommend waiting several months after the RT before trying to get new dentures. Stop Chlorhexidine. Start rinsing with salt/baking soda instead. Instructions given to pt (8 oz water with 1tsp baking soda and 1/2 tsp salt) rinse and spit after meals and before bed. Keep flushing feeding tube. Start applying moisturizer once daily on neck. Went to [facility] ER on 06/12/24 due to concern for infection, per ER note suspicion was low but pt placed on antibiotic and told to follow up with surgeon. Pt missed RT 06/12 and 06/13. Small patch of mucositis on right lower lip, I recommend applying aqupahor to this area. Samples given. Now resolved. Cont aquaphor Thrush: sent in script for Nystatin oral suspension. Had questions about his skin erythema which I answered, his skin has dry desquamation but no areas of wet desquamation and he should continue his current skin care regimen. documented in this encounter Plan of Treatment Upcoming Encounters Date Type Department Care Team (Late st Contact Info) Description 07/11/2024 1:45 PM EST Appointment [facility] Radiation Oncology [address] [place] [phone] 07/11/2024 1:50 PM EST Appointment [facility] Radiation Oncology [address] [place] [phone] Micaela Sandhu NP [address] [place] [address] [place] [phone] 08/11/2024 1:30 PM EDT Office Visit [facility] Hematology Oncology [address] [place] [phone] Tawana Chang MD [address] [place] [address] documented as of this encounter Visit Diagnoses Diagnosis Head and neck cancer (CMS/HCC)- Primary documented in this encounter Care Teams Toilet Products Molder Relationship Specialty Start Date End Date Brea Maciel MD [address] [place] [phone] PCP - General 10/08/23 documented as of this encounter
--- OUTSIDE RECORDS SUMMARY | 2024-07-11 10:56 | XMS_ITS | Encounter Summary ---
Author Organization [employer] Address [address] [place] [address] Care Team Providers Care Senior Clerk Name Role Phone Brea Maciel MD Primary Care Provider [phone] Encounter Details Date Type Department Care Team (Latest Contact Info) Description 06/10/2024 12:49 PM EST - 06/10/2024 11:59 PM EST Hospital Encounter [facility] Radiation Oncology [address] [phone] Discharge Disposition: Home or Self Care Social [...] 2nd Gen Pen Needle 32 gauge x 32 needle use to inject insulin BD Ultra-Fine [...] (50 mcg total) by mouth daily. 09/28/2015 omeprazole (PriLOSEC) [address] capsule Take [...] or Self Care documented in this encounter Plan of Treatment Upcoming Encounters Date Type Department Care Team (Late st Contact Info) Description 07/11/2024 1:45 PM EST Appointment [facility] Radiation Oncology [address] [place] [phone] 07/11/2024 1:50 PM EST Appointment [facility] Radiation Oncology [address] [phone] Micaela Sandhu NP [address] [place] [address] [address] [place] [phone] 08/11/2024 1:30 PM EDT Office Visit [facility] Hematology Oncology [address] [place] [phone] Tawana Chang MD [address] [place] [address] documented as of this encounter Procedures Procedure Name Priority Date/Time Associated Diagnosis Comments RAD ONC MSQ TREATMENT SUMMARY Routine 06/10/2024 1:42 PM EST documented in this encounter Results * Rad Onc Msq Treatment Summary (06/10/2024 1:42 PM EST) Treatment Site Rt lower gum/Bneck MOSAIQ RADIATION ONCOLOGY Course Number 1 MOSAIQ RADIATION ONCOLOGY Prescribed Fractional Dose 200 cGray MOSAIQ RADIATION ONCOLOGY Prescribed Total Dose 6,000 cGray MOSAIQ RADIATION ONCOLOGY Actual Fractions Delivered 10 MOSAIQ RADIATION ONCOLOGY Actual Session Delivered Dose 200 cGray MOSAIQ RADIATION ONCOLOGY Actual Total Dose 2,000 cGray MOSAIQ RADIATION ONCOLOGY Prescribed Technique 3 ARC VMAT MOSAIQ RADIATION ONCOLOGY Elapsed Days 15 MOSAIQ RADIATION ONCOLOGY Start Date 05/26/2024 MOSAIQ RADIATION ONCOLOGY Last Date 06/10/2024 MOSAIQ RADIATION ONCOLOGY Prescribed Number of Fractions 30 MOSAIQ RADIATION ONCOLOGY 06/10/2024 1:42 PM EST Physician Radiation Oncology RADIATIO N ONCOLOGY ORDERABLES MOSAIQ RADIATION ONCOLOGY documented in this encounter Visit Diagnoses Not on filedocumented in this encounter Care Teams Senior Clerk Relationship Specialty Start Date End Date Brea Maciel MD [address] [place] [phone] PCP - General 10/08/23 documented as of this encounter
--- OUTSIDE RECORDS SUMMARY | 2024-07-11 10:56 | XMS_ITS | Encounter Summary ---
Author Organization [facility] Address [address] [place] [address] Care Team Providers Care Knocker Out Name Role Phone Brea Maciel MD Primary Care Provider [phone] Encounter Details Date Type Department Care Team (Late Contact Info) Description 07/09/2024 1:22 PM EST Hospital Encounter [facility] Radiation Oncology [address] [place] [phone] Social History Tobacco Use Types Packs/Day Years [...] on file documented as of this encounter Plan of Treatment Upcoming Encounters Date Type Department Care Team (Late Contact Info) Description 07/11/2024 1:45 PM EST Appointment [facility] Radiation Oncology [address] [place] [phone] 07/11/2024 1:50 PM EST Appointment [facility] Radiation Oncology [address] [place] [phone] Micaela Sandhu NP [address] [place] [address] [address] [place] [phone] 08/11/2024 1:30 PM EDT Office Visit [facility] Hematology Oncology [address] [place] [phone] Tawana Chang MD [address] [place] [address] documented as of this encounter Procedures Procedure Name Priority Date/Time Associated Diagnosis Comments RAD ONC MSQ TREATMENT SUMMARY Routine 07/09/2024 1:45 PM EST documented in this encounter Results * Rad Onc Msq Treatment Summary (07/09/2024 1:45 PM EST) Treatment Site Rt lower gum/Bneck MOSAIQ RADIATION ONCOLOGY Course Number 1 MOSAIQ RADIATION ONCOLOGY Prescribed Fractional Dose 200 cGray MOSAIQ RADIATION ONCOLOGY Prescribed Total Dose 6,000 cGray MOSAIQ RADIATION ONCOLOGY Actual Fractions Delivered 28 MOSAIQ RADIATION ONCOLOGY Actual Session Delivered Dose 200 cGray MOSAIQ RADIATION ONCOLOGY Actual Total Dose 5,600 cGray MOSAIQ RADIATION ONCOLOGY Prescribed Technique 3 ARC VMAT MOSAIQ RADIATION ONCOLOGY Elapsed Days 44 MOSAIQ RADIATION ONCOLOGY Start Date 05/26/2024 MOSAIQ RADIATION ONCOLOGY Last Date 07/09/2024 MOSAIQ RADIATION ONCOLOGY Prescribed Number of Fractions 30 MOSAIQ RADIATION ONCOLOGY 07/09/2024 1:45 PM EST Physician Radiation Oncology RADIATIO N ONCOLOGY ORDERABLES MOSAIQ RADIATION ONCOLOGY documented in this encounter Visit Diagnoses Not on filedocumented in this encounter Care Teams Knocker Out Relationship Specialty Start Date End Date Brea Maciel MD [address] [place] [phone] PCP - General 10/08/23 documented as of this encounter
--- OUTSIDE RECORDS SUMMARY | 2024-07-11 10:56 | XMS_ITS | Clinical Summary ---
Author Organization [facility] Address [address] [place] [address] Care Team Providers Care Financial Services Education Consultant Name Role Phone Charis Liz Primary Care Provider [phone] William Kaplan MD Unavailable Allergies Active Allergy Reactions Criticality Noted Date Comments Liraglutide Unknown Medium 06/09/2019 Other reaction(s): did not feel right with it Other reaction(s): did not feel right with it Other reaction(s): did not feel right with it Lisinopril Unknown 06/09/2019 Other reaction(s): dry cough Other Other (see comments),Unknown Medium 11/25/2015 NSAIDS, Renal insuffciency NSAIDS, Renal insuffciency NSAIDS, Renal insuffciency NSAIDS, Renal insuffciency Medications levothyroxine (SYNTHROID, LEVOTHROID) 50 mcg tablet Take 50 mcg by mouth daily. 6 Active pioglitazone (ACTOS) 15 mg tablet TK 1 T PO D 4 9 Active metFORMIN (GLUCOPHAGE) 850 mg tablet TK 1 T PO BID WAC 2 9 Active metoprolol succinate XL (TOPROL-XL) 25 mg 24 hr tablet TK 1 T PO QD 2 9 Active amlodipine-ator vastatin (CADUET) 10-10 mg per tablet daily. Active losartan (COZAAR) 100 mg tablet Take 100 mg by mouth. Active atorvastatin (LIPITOR) 10 mg tablet Take 1 tablet by mouth daily. 8 Active sertraline (ZOLOFT) 100 mg tablet Take 150 mg by mouth. Active ammonium lactate 12-12 % kit every 12 hours. Acti ve amLODIPine (NORVASC) 10 mg tablet Take 10 mg by mouth. 3 Active chlorthalidone (HYGROTON) 25 mg tablet TAKE 1 TABLET BY MOUTH EVERY DAY IN THE MORNING WITH FOOD 3 Active Jardiance 25 mg tablet Take 25 mg by mouth. 3 Active NovoLOG Flexpen U-100 Insulin 100 unit/mL (3 mL) insulin pen ADMINISTER 6 UNITS UNDER THE SKIN DAILY WITH MEALS 3 Active Lantus Solostar U-100 Insulin 100 unit/mL (3 mL) insulin pen ADMINISTER 46 UNITS UNDER THE SKIN DAILY 3 Active pantoprazole (PROTONIX) 40 mg EC tablet Take 40 mg by mouth. 3 Active secukinumab 150 mg/mL pen injectorIndicat ions:Psoriasis Inject 300 mg under the skin every 28 days. 6 pen 3 3 Active cyclobenzaprine (FLEXERIL) 10 mg tablet TAKE 1 TABLET BY MOUTH 3 TIMES A DAY NEEDED FOR MUSCLE SPASM 3 Active gabapentin (NEURONTIN) 300 mg capsule Take 300 mg by mouth in the morning and 300 mg at noon and 300 mg before bedtime. 3 Active meloxicam (MOBIC) tablet Take 7.5 mg by mouth in the morning. 3 Active tacrolimus (PROTOPIC) 0.1 % ointmentIndicat ions:Psoriasis Aplicar dos veces al clay en las zonas afectadas 60 g 11 3 Active Active Problems No known active problems Social History Tobacco Use Types Packs/Day Years Used Date Smoking Tobacco: Never Smokeless Tobacco: Never Alcohol Use Standard Drinks/Week Comments Never 0 (1 standard drink = 0.6 oz pur e alcohol) Sex and Gender Information Value Date Recorded Sex Assigned at Not on file Legal Sex Male 5:05 AM EST Gender Identity Not on file Sexual Orientation Not on file Last Filed Vital Signs Vital Sign Reading Time Taken Comments Blood Pressure 133/83 03/10/2021 1:55 PM EDT Pulse 84 03/10/2021 1:55 PM EDT Temperature - - Respiratory Rate - - Oxygen Saturation - - Inhaled Oxygen Concentration - - Weight - - Height - - Body Mass Index - - Plan of Treatment Health Maintenance Due Date Last Done Comments CT Colonography 1956 FIT-DNA (Cologuard) 1955 FIT 1956 FOBT 1955 Flex Sigmoidoscopy - 5y 1955 HIV Screening 1955 Medicare Annual Wellness (AWV) 1955 Diabetes: Retinopathy Screening 02/06/1974 Zoster Vaccines (1 of 2) 02/06/2006 Pneumococcal Vaccine, 65+ Years (1 of 1 - PCV) 02/06/2021 Diabetes: Hemoglobin A1C 05/26/2021 021, 04/15/2020, 08/27/2019, Additional history exists COVID-19 Vaccine (3 - 2023- season) 2024 10/14/2020, 09/14/2020 Influenza Vaccine (#1) 2024 02/24/2018 Diabetes: Urine Microalbumin 02/13/2024 02/12/2023 Colonoscopy 04/06/2030 04/06/2020 Colorectal Cancer Screening 04/06/2030 DTaP,Tdap,and Td Vaccines (3 - Td or Tdap) 08/18/2031 08/17/2021, 03/05/2018 Hepatitis C Screening Completed 04/09/2019 HPV Vaccines Aged Out No longer eligi ble based on patient's age to complete this topic Hepatitis A Vaccines Aged Out No long er eligible based on patient's age to complete this topic Meningococcal Vaccine Aged Out No bert carlitos eligible based on patient's age to complete this topic Procedures Procedure Name Priority Date/Time Associated Diagnosis Comments HEP C AB (Q) Routine 04/09/2019 7:37 AM EST Long-term use of high-risk medication from Last 3 Months or Most Recently Relevant to Health Maintenance Results * Hep C AB (Q) (04/09/2019 7:37 AM EST) Marci Ramos Hep C AB Nonreactive Nonreactive [facility] Comment: This test is for eligibility determination of Donors of blood and blood components and human cells, tissues, and cellular and tissue based products (HCT/Ps). This test is not intended to be used for routine clinical or routine diagnostic evaluation. ? 04/09/2019 7:37 AM EST 04/09/2019 7:38 AM EST Narrative Resulting Agency Comment Performing Organization Information: ?Site ID: [id number] ?Name: [facility] ?Address: [address] [place] [address] ?Director: Roly Huerta M.D.,PhD us Robert Martinez MD [facility] ORDERABLES Lin l Result [facility] , [place] from Last 3 Months or Most Recently Relevant to Health Maintenance Insurance [address] [place] [address] MEDICAID [id number]IC[place] PART A & B Care Teams Financial Services Education Consultant Relationship Specialty Start Date End Date Charis Liz PA [address] [place] [address] PCP - General Internal Medicine 12/11/18 William Kaplan MD [address] [place] [address] PCP - Insurance Payer PCP 02/02/23
--- OUTSIDE RECORDS SUMMARY | 2024-07-11 10:56 | XMS_ITS | Encounter Summary ---
Author Organization [employer] Address [address] [place] [address] Care Team Providers Care Carbon Lamp Cleaner Name Role Phone Brea Maciel MD Primary Care Provider [phone] Encounter Details Date Type Department Care Team (Latest Contact Info) Description 07/03/2024 12:51 PM EST - 07/03/2024 11:59 PM EST Hospital Encounter [facility] Radiation Oncology [address] [phone] Discharge Disposition: Home or Self Care Social [...] Info) Description 07/11/2024 1:45 PM EST Appointment [facility] Radiation Oncology [address] [place] [phone] 07/11/2024 1:50 PM EST Appointment [facility] Radiation Oncology [address] [place] [phone] Micaela Sandhu NP [address] [place] [address] [place] [phone] 08/11/2024 1:30 PM EDT Office Visit [facility] Hematology Oncology [address] [place] [phone] Tawana Chang MD [address] [place] [address] documented as of this encounter Procedures Procedure Name Priority Date/Time Associated Diagnosis Comments RAD ONC MSQ TREATMENT SUMMARY Routine 07/03/2024 1:49 PM EST documented in this encounter Results * Rad Onc Msq Treatment Summary (07/03/2024 1:49 PM EST) Treatment Site Rt lower gum/Bneck MOSAIQ RADIATION ONCOLOGY Course Number 1 MOSAIQ RADIATION ONCOLOGY Prescribed Fractional Dose 200 cGray MOSAIQ RADIATION ONCOLOGY Prescribed Total Dose 6,000 cGray MOSAIQ RADIATION ONCOLOGY Actual Fractions Delivered 24 MOSAIQ RADIATION ONCOLOGY Actual Session Delivered Dose 200 cGray MOSAIQ RADIATION ONCOLOGY Actual Total Dose 4,800 cGray MOSAIQ RADIATION ONCOLOGY Prescribed Technique 3 ARC VMAT MOSAIQ RADIATION ONCOLOGY Elapsed Days 38 MOSAIQ RADIATION ONCOLOGY Start Date 05/26/2024 MOSAIQ RADIATION ONCOLOGY Last Date 07/03/2024 MOSAIQ RADIATION ONCOLOGY Prescribed Number of Fractions 30 MOSAIQ RADIATION ONCOLOGY 07/03/2024 1:49 PM EST Physician Radiation Oncology RADIMARIAELENA N ONCOLOGY ORDERABLES MOSAIQ RADIATION ONCOLOGY documented in this encounter Visit Diagnoses Not on filedocumented in this encounter Care Teams Carbon Lamp Cleaner Relationship Specialty Start Date End Date Brea Maciel MD [address] [place] [phone] PCP - General 10/08/23 documented as of this encounter
--- OUTSIDE RECORDS SUMMARY | 2024-07-11 10:56 | XMS_ITS | Encounter Summary ---
Author Organization [facility] Address [address] [place] [address] Care Team Providers Care Educational Specialist Name Role Phone Brea Maciel MD Primary Care Provider [phone] Encounter Details Date Type Department Care Team (Late Contact Info) Description 07/08/2024 1:09 PM EST Hospital Encounter [facility] Radiation Oncology [address] [place] [phone] Social History Tobacco Use Types Packs/Day Years [...] Info) Description 07/11/2024 1:[address] [facility] Radiation Oncology [address] [place] [phone] 07/11/2024 1:[address] [facility] Radiation Oncology [address] [place] [phone] Micaela Sandhu NP [address] [place] [address] [address] [place] [phone] 08/11/2024 1:30 PM EDT Office Visit [facility] Hematology Oncology [address] [place] [phone] Tawana Chang MD [address] [place] [address] documented as of this encounter Procedures Procedure Name Priority Date/Time Associated Diagnosis Comments RAD ONC MSQ TREATMENT SUMMARY Routine 07/08/2024 1:20 PM EST documented in this encounter Results * Rad Onc Msq Treatment Summary (07/08/2024 1:20 PM EST) Treatment Site Rt lower gum/Bneck MOSAIQ RADIATION ONCOLOGY Course Number 1 MOSAIQ RADIATION ONCOLOGY Prescribed Fractional Dose 200 cGray MOSAIQ RADIATION ONCOLOGY Prescribed Total Dose 6,000 cGray MOSAIQ RADIATION ONCOLOGY Actual Fractions Delivered 27 MOSAIQ RADIATION ONCOLOGY Actual Session Delivered Dose 200 cGray MOSAIQ RADIATION ONCOLOGY Actual Total Dose 5,400 cGray MOSAIQ RADIATION ONCOLOGY Prescribed Technique 3 ARC VMAT MOSAIQ RADIATION ONCOLOGY Elapsed Days 43 MOSAIQ RADIATION ONCOLOGY Start Date 05/26/2024 MOSAIQ RADIATION ONCOLOGY Last Date 07/08/2024 MOSAIQ RADIATION ONCOLOGY Prescribed Number of Fractions 30 MOSAIQ RADIATION ONCOLOGY 07/08/2024 1:20 PM EST Physician Radiation Oncology RADIATIO N ONCOLOGY ORDERABLES MOSAIQ RADIATION ONCOLOGY documented in this encounter Visit Diagnoses Not on filedocumented in this encounter Care Teams Educational Specialist Relationship Specialty Start Date End Date Brea Maciel MD [address] [place] [address] PCP - General 10/08/23 documented as of this encounter
--- OUTSIDE RECORDS SUMMARY | 2024-07-11 10:56 | XMS_ITS | Encounter Summary ---
Author Organization [employer] Address [address] [place] [address] Care Team Providers Care Burlap Bag Sewer Name Role Phone Brea Maciel MD Primary Care Provider [phone] Encounter Details Date Type Department Care Team (Latest Contact Info) Description 07/04/2024 1:00 PM EST - 07/04/2024 11:59 PM EST Hospital Encounter [facility] Radiation Oncology [address] [phone] Discharge Disposition: Home or Self Care Social [...] Take 50 mcg by mouth daily. 04/18/2024 diphenhydrAMINE 12.5 mg/5 mL elixir 50 mg, aluminum-magnesium hydroxide-simethicone 400-400-40 mg/5 mL suspension 20 mL, lidocaine 2 % solution 20 mL Swish and spit 5 mL every 3 (three) hours if needed for mucositis for up to 116 doses. 5-10 mLs every 3 hours. 580 each 2 07/04/2024 doxepin (SINEquan) 10 mg capsule Take 1 [...] Info) Description 07/11/2024 1:45 PM EST Appointment [facility] Radiation Oncology [address] [place] [phone] 07/11/2024 1:50 PM EST Appointment [facility] Radiation Oncology [address] [place] [phone] Micaela Sandhu NP [address] [place] [address] [address] [place] [address] 08/11/2024 1:30 PM EDT Office Visit [facility] Hematology Oncology [address] [place] [phone] Tawana Chang MD [address] [place] [address] documented as of this encounter Procedures Procedure Name Priority Date/Time Associated Diagnosis Comments RAD ONC MSQ TREATMENT SUMMARY Routine 07/04/2024 2:07 PM EST documented in this encounter Results * Rad Onc Msq Treatment Summary (07/04/2024 2:07 PM EST) Treatment Site Rt lower gum/Bneck MOSAIQ RADIATION ONCOLOGY Course Number 1 MOSAIQ RADIATION ONCOLOGY Prescribed Fractional Dose 200 cGray MOSAIQ RADIATION ONCOLOGY Prescribed Total Dose 6,000 cGray MOSAIQ RADIATION ONCOLOGY Actual Fractions Delivered 25 MOSAIQ RADIATION ONCOLOGY Actual Session Delivered Dose 200 cGray MOSAIQ RADIATION ONCOLOGY Actual Total Dose 5,000 cGray MOSAIQ RADIATION ONCOLOGY Prescribed Technique 3 ARC VMAT MOSAIQ RADIATION ONCOLOGY Elapsed Days 39 MOSAIQ RADIATION ONCOLOGY Start Date 05/26/2024 MOSAIQ RADIATION ONCOLOGY Last Date 07/04/2024 MOSAIQ RADIATION ONCOLOGY Prescribed Number of Fractions 30 MOSAIQ RADIATION ONCOLOGY 07/04/2024 2:07 PM EST Physician Radiation Oncology MD CASTANON N ONCOLOGY ORDERABLES MOSAIQ RADIATION ONCOLOGY documented in this encounter Visit Diagnoses Not on filedocumented in this encounter Care Teams Burlap Bag Sewer Relationship Specialty Start Date End Date Brea Maciel MD [address] [place] [address] PCP - General 10/08/23 documented as of this encounter
--- OUTSIDE RECORDS SUMMARY | 2024-07-11 10:56 | XMS_ITS | Encounter Summary ---
Author Organization [employer] Address [address] [place] [address] Care Team Providers Care Gas Distribution And Emergency Clerk Name Role Phone Brea Maciel MD Primary Care Provider [phone] Encounter Details Date Type Department Care Team (Latest Contact Info) Description 06/27/2024 1:06 PM EST - 06/27/2024 11:59 PM EST Hospital Encounter [facility] Radiation Oncology [address] [phone] Discharge Disposition: Home or Self Care Social [...] Info) Description 07/11/2024 1:45 PM EST Appointment [facility] Radiation Oncology [address] [place] [phone] 07/11/2024 1:50 PM EST Appointment [facility] Radiation Oncology [address] [place] [phone] Micaela Sandhu NP [address] [place] [address] [place] [phone] 08/11/2024 1:30 PM EDT Office Visit [facility] Hematology Oncology [address] [place] [phone] Tawana Chang MD [address] [place] [address] documented as of this encounter Procedures Procedure Name Priority Date/Time Associated Diagnosis Comments RAD ONC MSQ TREATMENT SUMMARY Routine 06/27/2024 1:24 PM EST documented in this encounter Results * Rad Onc Msq Treatment Summary (06/27/2024 1:24 PM EST) Treatment Site Rt lower gum/Bneck MOSAIQ RADIATION ONCOLOGY Course Number 1 MOSAIQ RADIATION ONCOLOGY Prescribed Fractional Dose 200 cGray MOSAIQ RADIATION ONCOLOGY Prescribed Total Dose 6,000 cGray MOSAIQ RADIATION ONCOLOGY Actual Fractions Delivered 20 MOSAIQ RADIATION ONCOLOGY Actual Session Delivered Dose 200 cGray MOSAIQ RADIATION ONCOLOGY Actual Total Dose 4,000 cGray MOSAIQ RADIATION ONCOLOGY Prescribed Technique 3 ARC VMAT MOSAIQ RADIATION ONCOLOGY Elapsed Days 32 MOSAIQ RADIATION ONCOLOGY Start Date 05/26/2024 MOSAIQ RADIATION ONCOLOGY Last Date 06/27/2024 MOSAIQ RADIATION ONCOLOGY Prescribed Number of Fractions 30 MOSAIQ RADIATION ONCOLOGY 06/27/2024 1:24 PM EST Physician Radiation Oncology RADIMARIAELENA N ONCOLOGY ORDERABLES MOSAIQ RADIATION ONCOLOGY documented in this encounter Visit Diagnoses Not on filedocumented in this encounter Care Teams Gas Distribution And Emergency Clerk Relationship Specialty Start Date End Date Brea Maciel MD [address] [place] [address] PCP - General 10/08/23 documented as of this encounter
--- OUTSIDE RECORDS SUMMARY | 2024-07-11 10:56 | XMS_ITS | Encounter Summary ---
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 documented as of this encounter Ordered Prescriptions Prescription Sig Dispensed Refills Start Date End Da te diphenhydrAMINE 12.5 mg/5 mL elixir 50 mg, aluminum-magnesium hydroxide-simethicone 400-400-40 mg/5 mL suspension 20 mL, lidocaine 2 % solution 20 mL Swish and spit 5 mL every 3 (three) hours if needed for mucositis for up to 116 doses. 5-10 mLs every 3 hours. 580 each 2 07/04/2024 documented in this encounter Discharge Disposition Disposition Code Departure Means Destination Home or Self Care documented in this encounter Progress Notes * Brea Plunkett RN - 07/04/2024 1:50 PM EST Accompanied by: self and his sister on speaker phone Subjective: Are you experiencing any fatigue? Yes pt feel that he has not strength Are you experiencing any skin reactions? Yes pt with tanning/erythema to face and neck. Pt reports swelling at the surgical site.Pt using aquaphor Are you experiencing any phlegm, dryness, taste changes? Yes. A lot of dryness and he constantly drinks water. He says that everything he eats is flavorless. Are you experiencing any pain or difficulty swallowing? Yes a little. Are you using any mouth rinse? Has stopped chlorhexidene, now using nysatin Pt reports that where he had the surgery in his mouth feels likes its cut Are you using any lotions to the treatment site? Yes using what Dr. Flanagan gave him. Skin is itchy Any oral intake? poor not eating much. Are you seeing a warehouse worker 2nd shift or speech language pathologist? Yes Does patient have a g-tube? Yes . If so, How many cans per day are you using via g-tube? N/A Any problems with the tube or tube site? No, flushing tube twice daily. Pt reports lip is no longer painful and bleeding . Saw oral surgeon 06/20/24 Dr. Lu. Pt says that he said surgery site looked fine. * Leyla Flanagan MD - 07/04/2024 1:50 PM EST Radiation Oncology On Treatment Visit Patient Name: Feliciano Landin Cliff Attending Provider: Leyla Flanagan MD Encounter Date: 07/04/2024 DIAGNOSIS: 1. 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 Pt declined chemo. Med onc Dr. Chang Accompanied by: self and his sister on speaker phone Subjective: Are you experiencing any fatigue? Yes pt feel that he has not strength Are you experiencing any skin reactions? Yes pt with tanning/erythema to face and neck. Pt reports swelling at the surgical site.Pt using aquaphor Are you experiencing any phlegm, dryness, taste changes? Yes. A lot of dryness and he constantly drinks water. He says that everything he eats is flavorless. Are you experiencing any pain or difficulty swallowing? Yes a little. Are you using any mouth rinse? Has stopped chlorhexidene, now using nysatin Pt reports that where he had the surgery in his mouth feels likes its cut Are you using any lotions to the treatment site? Yes using what Dr. Flanagan gave him. Skin is itchy Any oral intake? poor not eating much. Are you seeing a warehouse worker 2nd shift or speech language pathologist? Yes Does patient [...] well-healing composite resection and right construction. No signs of infection. Patient has ~1cm patch of mucositis on right lower lip, now resolved Mouth very dry Has mucositis in under tongue and by graft. Few patches of thrush on tongue and on graft site, improved. Skin of neck intact but with mod erythema. Has ~ 1.5 cm patch of scabbed bloody skin in upper rightneck Assessment/Plan: He is tolerating treatments well. Continue [...] before bed. Keep flushing feeding tube. Start using feedings. Powerplant Operator consulted. Start MMW for mouth Went to [facility] ER on 06/12/24 due to concern for infection, per ER note suspicion was low but pt placed on antibiotic and told to follow up with surgeon. Pt missed RT 06/12 and 06/13. Small patch of mucositis on right lower lip, I recommend applying aqupahor to this area. Samples given. Now resolved. Cont aquaphor Thrush: improved. Cont Nystatin. Skin reaction in neck: cont aquaphor. May use OTC hydrocortisone for itching. Do not apply to any open areas however. documented in this encounter Plan of Treatment Upcoming Encounters Date Type Department Care Team (Late st Contact Info) Description 07/11/2024 1:45 PM EST Appointment [facility] Radiation Oncology [address] [place] [phone] 07/11/2024 1:50 PM EST Appointment [facility] Radiation Oncology [address] [place] [phone] Micaela Sandhu NP [address] [place] [phone] 08/11/2024 1:30 PM EDT Office Visit [facility] Hematology Oncology [address] [place] [phone] Tawana Chang MD [address] [place] [address] documented as of this encounter Visit Diagnoses Diagnosis 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
--- OUTSIDE RECORDS SUMMARY | 2024-07-11 10:56 | XMS_ITS | Encounter Summary ---
Author Organization [employer] Address [address] [place] [address] Care Team Providers Care Whizzer Operator Name Role Phone Brea Maciel MD Primary Care Provider [phone] Encounter Details Date Type Department Care Team (Latest Contact Info) Description 07/07/2024 12:53 PM EST - 07/07/2024 11:59 PM EST Hospital Encounter [facility] Radiation Oncology [address] [phone] Discharge Disposition: Home or Self Care Social [...] Info) Description 07/11/2024 1:45 PM EST Appointment [facility] Radiation Oncology [address] [place] [phone] 07/11/2024 1:50 PM EST Appointment [facility] Radiation Oncology [address] [place] [phone] Micaela Sandhu NP [address] [place] [address] [address] [place] [address] 08/11/2024 1:30 PM EDT Office Visit [facility] Hematology Oncology [address] [place] [phone] Tawana Chang MD [address] [place] [address] documented as of this encounter Procedures Procedure Name Priority Date/Time Associated Diagnosis Comments RAD ONC MSQ TREATMENT SUMMARY Routine 07/07/2024 1:36 PM EST documented in this encounter Results * Rad Onc Msq Treatment Summary (07/07/2024 1:36 PM EST) Treatment Site Rt lower gum/Bneck MOSAIQ RADIATION ONCOLOGY Course Number 1 MOSAIQ RADIATION ONCOLOGY Prescribed Fractional Dose 200 cGray MOSAIQ RADIATION ONCOLOGY Prescribed Total Dose 6,000 cGray MOSAIQ RADIATION ONCOLOGY Actual Fractions Delivered 26 MOSAIQ RADIATION ONCOLOGY Actual Session Delivered Dose 200 cGray MOSAIQ RADIATION ONCOLOGY Actual Total Dose 5,200 cGray MOSAIQ RADIATION ONCOLOGY Prescribed Technique 3 ARC VMAT MOSAIQ RADIATION ONCOLOGY Elapsed Days 42 MOSAIQ RADIATION ONCOLOGY Start Date 05/26/2024 MOSAIQ RADIATION ONCOLOGY Last Date 07/07/2024 MOSAIQ RADIATION ONCOLOGY Prescribed Number of Fractions 30 MOSAIQ RADIATION ONCOLOGY 07/07/2024 1:36 PM EST Physician Radiation Oncology MD CASTANON N ONCOLOGY ORDERABLES MOSAIQ RADIATION ONCOLOGY documented in this encounter Visit Diagnoses Not on filedocumented in this encounter Care Teams Whizzer Operator Relationship Specialty Start Date End Date Brea Maciel MD [address] [place] [phone] PCP - General 10/08/23 documented as of this encounter
--- OUTSIDE RECORDS SUMMARY | 2024-07-11 10:56 | XMS_ITS | Encounter Summary ---
Author Organization [employer] Address [address] [place] [address] Care Team Providers Care Ambulance Driver Paramedic Name Role Phone Brea Maciel MD Primary Care Provider [phone] Encounter Details Date Type Department Care Team (Latest Contact Info) Description 07/02/2024 1:08 PM EST - 07/02/2024 11:59 PM EST Hospital Encounter [facility] Radiation Oncology [address] [phone] Discharge Disposition: Home or Self Care Social [...] Info) Description 07/11/2024 1:45 PM EST Appointment [facility] Radiation Oncology [address] [place] [phone] 07/11/2024 1:50 PM EST Appointment [facility] Radiation Oncology [address] [place] [phone] Micaela Sandhu NP [address] [place] [address] [place] [phone] 08/11/2024 1:30 PM EDT Office Visit [facility] Hematology Oncology [address] [place] [phone] Tawana Chang MD [address] [place] [address] documented as of this encounter Procedures Procedure Name Priority Date/Time Associated Diagnosis Comments RAD ONC MSQ TREATMENT SUMMARY Routine 07/02/2024 1:32 PM EST documented in this encounter Results * Rad Onc Msq Treatment Summary (07/02/2024 1:32 PM EST) Treatment Site Rt lower gum/Bneck MOSAIQ RADIATION ONCOLOGY Course Number 1 MOSAIQ RADIATION ONCOLOGY Prescribed Fractional Dose 200 cGray MOSAIQ RADIATION ONCOLOGY Prescribed Total Dose 6,000 cGray MOSAIQ RADIATION ONCOLOGY Actual Fractions Delivered 23 MOSAIQ RADIATION ONCOLOGY Actual Session Delivered Dose 200 cGray MOSAIQ RADIATION ONCOLOGY Actual Total Dose 4,600 cGray MOSAIQ RADIATION ONCOLOGY Prescribed Technique 3 ARC VMAT MOSAIQ RADIATION ONCOLOGY Elapsed Days 37 MOSAIQ RADIATION ONCOLOGY Start Date 05/26/2024 MOSAIQ RADIATION ONCOLOGY Last Date 07/02/2024 MOSAIQ RADIATION ONCOLOGY Prescribed Number of Fractions 30 MOSAIQ RADIATION ONCOLOGY 07/02/2024 1:32 PM EST Physician Radiation Oncology RADIMARIAELENA N ONCOLOGY ORDERABLES MOSAIQ RADIATION ONCOLOGY documented in this encounter Visit Diagnoses Not on filedocumented in this encounter Care Teams Ambulance Driver Paramedic Relationship Specialty Start Date End Date Brea Maciel MD [address] [place] [address] PCP - General 10/08/23 documented as of this encounter
--- OUTSIDE RECORDS SUMMARY | 2024-07-11 10:56 | XMS_ITS | Encounter Summary ---
Author Organization [facility] Address [address] [place] [address] Care Team Providers Care Treating Engineer Name Role Phone Brea Maciel MD Primary Care Provider [phone] Encounter Details Date Type Department Care Team (Latest Contact Info) Description 06/26/2024 1:00 PM EST - 06/26/2024 11:59 PM EST Hospital Encounter [facility] Radiation Oncology [address] [phone] Discharge Disposition: Home or Self Care Social [...] Description 07/11/2024 1:45 PM EST Appointment [facility] Radiation Oncology [address] [place] [phone] 07/11/2024 1:50 PM EST Appointment [facility] Radiation Oncology [address] [phone] Micaela Sandhu NP [address] [place] [address] [address] [place] [phone] 08/11/2024 1:30 PM EDT Office Visit [facility] Hematology Oncology [address] [place] [phone] Tawana Chang MD [address] [place] [address] documented as of this encounter Procedures Procedure Name Priority Date/Time Associated Diagnosis Comments RAD ONC MSQ TREATMENT SUMMARY Routine 06/26/2024 1:31 PM EST documented in this encounter Results * Rad Onc Msq Treatment Summary (06/26/2024 1:31 PM EST) Treatment Site Rt lower gum/Bneck MOSAIQ RADIATION ONCOLOGY Course Number 1 MOSAIQ RADIATION ONCOLOGY Prescribed Fractional Dose 200 cGray MOSAIQ RADIATION ONCOLOGY Prescribed Total Dose 6,000 cGray MOSAIQ RADIATION ONCOLOGY Actual Fractions Delivered 19 MOSAIQ RADIATION ONCOLOGY Actual Session Delivered Dose 200 cGray MOSAIQ RADIATION ONCOLOGY Actual Total Dose 3,800 cGray MOSAIQ RADIATION ONCOLOGY Prescribed Technique 3 ARC VMAT MOSAIQ RADIATION ONCOLOGY Elapsed Days 31 MOSAIQ RADIATION ONCOLOGY Start Date 05/26/2024 MOSAIQ RADIATION ONCOLOGY Last Date 06/26/2024 MOSAIQ RADIATION ONCOLOGY Prescribed Number of Fractions 30 MOSAIQ RADIATION ONCOLOGY 06/26/2024 1:31 PM EST Physician Radiation Oncology RADIATIO N ONCOLOGY ORDERABLES MOSAIQ RADIATION ONCOLOGY documented in this encounter Visit Diagnoses Not on filedocumented in this encounter Care Teams Treating Engineer Relationship Specialty Start Date End Date Brea Maciel MD [address] [place] [phone] PCP - General 10/08/23 documented as of this encounter
--- OUTSIDE RECORDS SUMMARY | 2024-07-11 10:56 | XMS_ITS | Encounter Summary ---
Author Organization [employer] Address [address] [place] [address] Care Team Providers Care Prototype Engineer Name Role Phone Brea Maciel MD Primary Care Provider [phone] Encounter Details Date Type Department Care Team (Late st Contact Info) Description 07/08/2024 [facility] Radiation Oncology 271 [facility] [address] [place] [phone] Brea Plunkett, RN Social History Tobacco Use Types Packs/Day Years [...] on file documented as of this encounter Progress Notes * Brea Plunkett RN - 07/08/2024 1:30 PM EST Met with pt using in demand supervisor liquid yeast [place] # [id number] to teach him how to use/apply hydrogel to tx area for comfort. Pt was instructed to keep hydrogel in fridge and apply prn for comfort. Pt verbalized understanding. Pt reports that the Aquaphor is burning when he puts it on his skin. Pt was instructed to stop using Aquaphor and get some aloe and use that. Pt verbalized understanding and askedthis RN to write it down for him. documented in this encounter Plan of Treatment Upcoming Encounters Date Type Department Care Team (Late st Contact Info) Description 07/11/2024 1:[address] [facility] Radiation Oncology [address] [phone] 07/11/2024 1:[address] [facility] Radiation Oncology [address] [phone] Micaela Sandhu NP [address] [place] [phone] 08/11/2024 1:30 PM EDT Office Visit [facility] Hematology Oncology [address] [place] [phone] Tawana Chang MD [address] [place] [address] documented as of this encounter Visit Diagnoses Not on filedocumented in this encounter Care Teams Prototype Engineer Relationship Specialty Start Date End Date Brea Maciel MD [address] [place] [phone] PCP - General 10/08/23 documented as of this encounter
--- OUTSIDE RECORDS SUMMARY | 2024-07-11 10:56 | XMS_ITS | Encounter Summary ---
Author Organization [employer] Address [address] [place] [address] Care Team Providers Care Health And Safety Advisor Name Role Phone Brea Maciel MD Primary Care Provider [phone] Encounter Details Date Type Department Care Team (Latest Contact Info) Description 07/01/2024 1:07 PM EST - 07/01/2024 11:59 PM EST Hospital Encounter [facility] Radiation Oncology [address] [phone] Discharge Disposition: Home or Self Care Social [...] Info) Description 07/11/2024 1:45 PM EST Appointment [facility] Radiation Oncology [address] [place] [phone] 07/11/2024 1:50 PM EST Appointment [facility] Radiation Oncology [address] [place] [phone] Micaela Sandhu NP [address] [place] [address] [place] [phone] 08/11/2024 1:30 PM EDT Office Visit [facility] Hematology Oncology [address] [place] [phone] Tawana Chang MD [address] [place] [address] documented as of this encounter Procedures Procedure Name Priority Date/Time Associated Diagnosis Comments RAD ONC MSQ TREATMENT SUMMARY Routine 07/01/2024 2:05 PM EST documented in this encounter Results * Rad Onc Msq Treatment Summary (07/01/2024 2:05 PM EST) Treatment Site Rt lower gum/Bneck MOSAIQ RADIATION ONCOLOGY Course Number 1 MOSAIQ RADIATION ONCOLOGY Prescribed Fractional Dose 200 cGray MOSAIQ RADIATION ONCOLOGY Prescribed Total Dose 6,000 cGray MOSAIQ RADIATION ONCOLOGY Actual Fractions Delivered 22 MOSAIQ RADIATION ONCOLOGY Actual Session Delivered Dose 200 cGray MOSAIQ RADIATION ONCOLOGY Actual Total Dose 4,400 cGray MOSAIQ RADIATION ONCOLOGY Prescribed Technique 3 ARC VMAT MOSAIQ RADIATION ONCOLOGY Elapsed Days 36 MOSAIQ RADIATION ONCOLOGY Start Date 05/26/2024 MOSAIQ RADIATION ONCOLOGY Last Date 07/01/2024 MOSAIQ RADIATION ONCOLOGY Prescribed Number of Fractions 30 MOSAIQ RADIATION ONCOLOGY 07/01/2024 2:05 PM EST Physician Radiation Oncology RADIMARIAELENA N ONCOLOGY ORDERABLES MOSAIQ RADIATION ONCOLOGY documented in this encounter Visit Diagnoses Not on filedocumented in this encounter Care Teams Health And Safety Advisor Relationship Specialty Start Date End Date Brea Maciel MD [address] [place] [phone] PCP - General 10/08/23 documented as of this encounter
--- OUTSIDE RECORDS SUMMARY | 2024-07-11 10:57 | XMS_ITS | Encounter Summary ---
Author Organization [employer] Address [address] [place] [address] Care Team Providers Care Accounting Policy Consultant Name Role Phone Brea Maciel MD Primary Care Provider [phone] Encounter Details Date Type Department Care Team (Latest Contact Info) Description 06/24/2024 1:05 PM EST - 06/24/2024 11:59 PM EST Hospital Encounter [facility] Radiation Oncology [address] [phone] Discharge Disposition: Home or Self Care Social [...] Info) Description 07/11/2024 1:45 PM EST Appointment [facility] Radiation Oncology [address] [place] [phone] 07/11/2024 1:50 PM EST Appointment [facility] Radiation Oncology [address] [phone] Micaela Sandhu NP [address] [place] [address] [address] [place] [phone] 08/11/2024 1:30 PM EDT Office Visit [facility] Hematology Oncology [address] [place] [phone] Tawana Chang MD [address] [place] [address] documented as of this encounter Procedures Procedure Name Priority Date/Time Associated Diagnosis Comments RAD ONC MSQ TREATMENT SUMMARY Routine 06/24/2024 1:58 PM EST documented in this encounter Results * Rad Onc Msq Treatment Summary (06/24/2024 1:58 PM EST) Treatment Site Rt lower gum/Bneck MOSAIQ RADIATION ONCOLOGY Course Number 1 MOSAIQ RADIATION ONCOLOGY Prescribed Fractional Dose 200 cGray MOSAIQ RADIATION ONCOLOGY Prescribed Total Dose 6,000 cGray MOSAIQ RADIATION ONCOLOGY Actual Fractions Delivered 17 MOSAIQ RADIATION ONCOLOGY Actual Session Delivered Dose 200 cGray MOSAIQ RADIATION ONCOLOGY Actual Total Dose 3,400 cGray MOSAIQ RADIATION ONCOLOGY Prescribed Technique 3 ARC VMAT MOSAIQ RADIATION ONCOLOGY Elapsed Days 29 MOSAIQ RADIATION ONCOLOGY Start Date 05/26/2024 MOSAIQ RADIATION ONCOLOGY Last Date 06/24/2024 MOSAIQ RADIATION ONCOLOGY Prescribed Number of Fractions 30 MOSAIQ RADIATION ONCOLOGY 06/24/2024 1:58 PM EST Physician Radiation Oncology RADIATIO N ONCOLOGY ORDERABLES MOSAIQ RADIATION ONCOLOGY documented in this encounter Visit Diagnoses Not on filedocumented in this encounter Care Teams Accounting Policy Consultant Relationship Specialty Start Date End Date Brea Maciel MD [address] [place] [phone] PCP - General 10/08/23 documented as of this encounter
--- OUTSIDE RECORDS SUMMARY | 2024-07-11 10:57 | XMS_ITS | Encounter Summary ---
Author Organization [employer] Address [address] [place] [address] Care Team Providers Care E M Assembler Name Role Phone Brea Maciel MD Primary Care Provider [phone] Reason for Visit * Reason Comments OTV Encounter Details Date Type Department Care Team (Latest Contact Info) Description 06/17/2024 1:26 PM EST - 06/17/2024 11:59 PM EST Hospital Encounter [facility] Radiation Oncology [address] [phone] Leyla Flanagan MD [address] [place] [address] Primary squamous cell carcinoma of lower gingiva [...] on file documented as of this encounter Last Filed Vital Signs Vital Sign Reading Time Taken Comments Blood Pressure - - Pulse - - Temperature - - Respiratory Rate - - Oxygen Saturation - - Inhaled Oxygen Concentration - - Weight 66.1 kg (145 lb 12.8 oz) 06/17/2024 1:33 PM EST Height - - Body Mass Index 25.03 06/12/2024 10:50 AM EST documented in this encounter Medications at Time of Discharge [...] 2nd Gen Pen Needle 32 gauge x /32 needle use to inject insulin BD Ultra-Fine [...] mg tablet Take by mouth at bedtime. amoxicillin-clavulanat e (AUGMENTIN) 600-42.9 mg/5 mL suspension Take 7.3 mL (875 mg total) by mouth 2 (two) times a day for 10 days. 146 mL 06/12/2024 06/22/2024 saccharomyces boulardii (FLORASTOR) 250 mg capsule Take 1 capsule (250 mg total) by mouth 2 (two) times a day for 7 days. 14 capsule 06/12/2024 06/19/2024 documented as of this encounter Discharge Disposition Disposition Code Departure Means Destination Home or Self Care documented in this encounter Progress Notes * Brea Plunkett RN - 06/17/2024 1:50 PM EST Accompanied by: self and sister on phone Subjective: Are you experiencing any fatigue? No Are you experiencing any skin reactions? No Are you experiencing any phlegm, dryness, taste changes? Yes. A lot of dryness and he constantly drinks water. Are you experiencing any pain or difficulty swallowing? No Are you using any mouth rinse? Yes one from the hospital Chlorhexidine 0.12% use twice a day Are you using any lotions to the treatment site? No Any oral intake? Yes, cornbeef, white rice, beans and chicken. Are you seeing a bag filler machine operator or speech language pathologist? Yes Does patient have a g-tube? Yes . If so, How many cans per day are you using via g-tube? N/A Any problems with the tube or tube site? No, flushing tube twice daily. Pt reports lip is painful. Pt to see MD in [place] tomorrow. * Leyla Flanagan MD - 06/17/2024 1:50 PM EST Radiation Oncology On Treatment Visit Patient Name: Feliciano Coronado Attending Provider: Leyla Flanagan MD Encounter Date: 06/17/2024 DIAGNOSIS: 1. Primary squamous cell carcinoma of [...] tracheostomy, teeth extractions by Dr. 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 Pt declined chemo. Med onc Dr. Chang Accompanied by: self and sister on phone Subjective: Are you experiencing any fatigue? No Are you experiencing any skin reactions? No Are you experiencing any phlegm, dryness, taste changes? Yes. A lot of dryness and he constantly drinks water. Are you experiencing any pain or difficulty swallowing? No Are you using any mouth rinse? Has stopped chlorhexidene, now using salt/baking soda rinses Are you using any lotions to the treatment site? No Any oral intake? Yes, cornbeef, white rice, beans and chicken. Are you seeing a bag filler machine operator or speech language pathologist? Yes Does patient have a g-tube? Yes . If so, How many cans per day are you using via g-tube? N/A Any problems with the tube or tube site? No, flushing tube twice daily. Pt reports lip is painful. Pt to see MD in [place] tomorrow. Physical Exam: There were no vitals filed [...] ~1cm patch of mucositis on right lower lip. Skin of neck intact. Assessment/Plan: He is tolerating treatments well. Continue [...] moisturizer once daily on neck. Went to [facility] ER on 06/12/24 due to concern for infection, per ER note suspicion was low but pt placed on antibiotic and told to follow up with surgeon. Pt missed RT 06/12 and 06/13. Small patch of mucositis on right lower lip, I recommend applying aqupahor to this area. Samples given. Pt has FU Dr. Lu ([facility] surgeon) tomorrow. documented in this encounter Plan of Treatment Upcoming Encounters Date Type Department Care Team (Late st Contact Info) Description 07/11/2024 1:45 PM EST Appointment [facility] Radiation Oncology [address] [place] [phone] 07/11/2024 1:50 PM EST Appointment [facility] Radiation Oncology [address] [place] [phone] Micaela Sandhu NP [address] [place] [address] [address] [place] [phone] 08/11/2024 1:30 PM EDT Office Visit [facility] Hematology Oncology [address] [place] [phone] Tawana Chang MD [address] [place] [address] documented as of this encounter Visit Diagnoses Diagnosis 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
--- OUTSIDE RECORDS SUMMARY | 2024-07-11 10:57 | XMS_ITS | Encounter Summary ---
Author Organization [employer] Address [address] [place] [address] Care Team Providers Care Navy Senior Officer Name Role Phone Brea Maciel MD Primary Care Provider [phone] Reason for Visit * Reason Comments OTV Encounter Details Date Type Department Care Team (Latest Contact Info) Description 06/27/2024 1:24 PM EST - 06/27/2024 11:59 PM EST Hospital Encounter [facility] Radiation Oncology [address] [phone] Leyla Flanagan MD 271 [place] [address] Primary squamous cell carcinoma of lower gingiva [...] - Inhaled Oxygen Concentration - - Weight 68.3 kg (150 lb 9.6 oz) 06/27/2024 1:49 PM EST Height - - Body Mass Index 25.85 06/12/2024 10:50 AM EST documented in this [...] Dispensed Refills Start Date End Da te nystatin (MYCOSTATIN) 100,000 unit/mL suspension Take 5 mL by mouth 4 (four) times a day for 14 days. Swish and swallow. Do not eat or drink for 30 min afterwards 280 mL 06/27/2024 07/11/2024 documented in this encounter Discharge Disposition Disposition Code Departure Means Destination Home or Self Care documented in this encounter Progress Notes * Brea Plunkett, ROSIBEL - 06/27/2024 1:50 PM EST Accompanied by: self and in demand electronic typesetting machine operator Bg # [id number] Subjective: Are you experiencing any fatigue? No [...] beans and chicken. Are you seeing a embossing unit operator or speech language pathologist? Yes Does patient have a g-tube? Yes . If so, How many cans per day are you using via g-tube? N/A Any problems with the tube or tube site? No, flushing tube twice daily. Pt reports lip is no longer painful and bleeding . * Leyla Flanagan MD - 06/27/2024 1:50 PM EST Radiation Oncology On Treatment Visit Patient Name: Feliciano Coronado Attending Provider: Leyla Flanagan MD Encounter Date: 06/27/2024 DIAGNOSIS: 1. Primary squamous cell carcinoma of [...] tracheostomy, teeth extractions by Dr. 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 Pt declined chemo. Med onc Dr. Chang Accompanied by: self and in demand electronic typesetting machine operator Bg # [id number] Subjective: Are you experiencing any fatigue? No [...] beans and chicken. Are you seeing a embossing unit operator or speech language pathologist? Yes Does [...] visit. Weight on 05/30/24 on 150 lb. Weight: 68.3 kg (150 lb 9.6 oz) General: appears well, no apparent distress; awake [...] moisturizer once daily on neck. Went to [facility] ER on 06/12/24 due to concern for infection, per ER note suspicion was low but pt placed on antibiotic and told to follow up with surgeon. Pt missed RT 06/12 and 06/13. Small patch of mucositis on right lower lip, I recommend applying aqupahor to this area. Samples given. Now resolved. Cont aquaphor Thrush: sent in script for Nystatin oral suspension. documented in this encounter Plan of Treatment Upcoming Encounters Date Type Department Care Team (Late st Contact Info) Description 07/11/2024 1:45 PM EST Appointment [facility] Radiation Oncology [address] [phone] 07/11/2024 1:50 PM EST Appointment [facility] Radiation Oncology [address] [phone] Micaela Sandhu NP [address] [place] [phone] 08/11/2024 1:30 PM EDT Office Visit [facility] Hematology Oncology [address] [place] [phone] Tawana Chang MD [address] [place] [address] documented as of this encounter Visit Diagnoses Diagnosis 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
--- OUTSIDE RECORDS SUMMARY | 2024-07-11 10:57 | XMS_ITS | Encounter Summary ---
Author Organization [facility] Address [address] [place] [address] Care Team Providers Care Electric Mule Driver Name Role Phone Brea Maciel MD Primary Care Provider [phone] Encounter Details Date Type Department Care Team (Late st Contact Info) Description 06/13/2024 Telephone [facility] Radiation Oncology [address] [phone] Leyla Flanagan MD [address] [place] [address] Social History Tobacco Use Types Packs/Day Years [...] as of this encounter Progress Notes * Rose Mary Holland - 06/13/2024 2:20 PM EST Spoke with patient and sister (Lena) for an update regarding yesterday's ER visit. Per patient hehas an infection in the treatment area and was put on antibiotics. Per patient and sister he was told that he should hold off on radiation until seen by his oncologist in [place]. Patient has an appt.On 06/18/2024. Explained that I will speak with Dr. Flanagan on Sunday and call him with her recommendation. documented in this encounter Plan of Treatment Upcoming Encounters Date Type Department Care Team (Late st Contact Info) Description 07/11/2024 1:45 PM EST Appointment [facility] Radiation Oncology [address] [place] [phone] 07/11/2024 1:50 PM EST Appointment [facility] Radiation Oncology [address] [place] [phone] Micaela Sandhu, QUAN [address] [place] [phone] 08/11/2024 1:30 PM EDT Office Visit [facility] Hematology Oncology [address] [place] [phone] Tawana Chang MD [address] [place] [address] documented as of this encounter Visit Diagnoses Not on filedocumented in this encounter Care Teams Electric Mule Driver Relationship Specialty Start Date End Date Brea Maciel MD [address] [place] [phone] PCP - General 10/08/23 documented as of this encounter
--- OUTSIDE RECORDS SUMMARY | 2024-07-11 10:57 | XMS_ITS | Encounter Summary ---
Author Organization [employer] Address [address] [place] [address] Care Team Providers Care School Secretary Name Role Phone Brea Maciel MD Primary Care Provider [phone] Encounter Details Date Type Department Care Team (Latest Contact Info) Description 06/19/2024 12:41 PM EST - 06/19/2024 11:59 PM EST Hospital Encounter [facility] Radiation Oncology [address] [phone] Discharge Disposition: Home or Self Care Social [...] mg tablet Take by mouth at bedtime. amoxicillin-clavulanate (AUGMENTIN) 600-42.9 mg/5 mL suspension Take 7.3 mL (875 mg total) by mouth 2 (two) times a day for 10 days. 146 mL 06/12/2024 06/22/2024 documented as of this encounter Discharge Disposition Disposition Code Departure Means Destination Home or Self Care documented in this encounter Plan of Treatment Upcoming Encounters Date Type Department Care Team (Late st Contact Info) Description 07/11/2024 1:45 PM EST Appointment [facility] Radiation Oncology [address] [place] [phone] 07/11/2024 1:50 PM EST Appointment [facility] Radiation Oncology [address] [place] [phone] Micaela Sandhu NP [address] [place] [address] [place] [phone] 08/11/2024 1:30 PM EDT Office Visit [facility] Hematology Oncology [address] [place] [phone] Tawana Chang MD [address] [place] [address] documented as of this encounter Procedures Procedure Name Priority Date/Time Associated Diagnosis Comments RAD ONC MSQ TREATMENT SUMMARY Routine 06/19/2024 1:25 PM EST documented in this encounter Results * Rad Onc Msq Treatment Summary (06/19/2024 1:25 PM EST) Treatment Site Rt lower gum/Bneck MOSAIQ RADIATION ONCOLOGY Course Number 1 MOSAIQ RADIATION ONCOLOGY Prescribed Fractional Dose 200 cGray MOSAIQ RADIATION ONCOLOGY Prescribed Total Dose 6,000 cGray MOSAIQ RADIATION ONCOLOGY Actual Fractions Delivered 15 MOSAIQ RADIATION ONCOLOGY Actual Session Delivered Dose 200 cGray MOSAIQ RADIATION ONCOLOGY Actual Total Dose 3,000 cGray MOSAIQ RADIATION ONCOLOGY Prescribed Technique 3 ARC VMAT MOSAIQ RADIATION ONCOLOGY Elapsed Days 24 MOSAIQ RADIATION ONCOLOGY Start Date 05/26/2024 MOSAIQ RADIATION ONCOLOGY Last Date 06/19/2024 MOSAIQ RADIATION ONCOLOGY Prescribed Number of Fractions 30 MOSAIQ RADIATION ONCOLOGY 06/19/2024 1:25 PM EST Physician Radiation Oncology [facility] documented in this encounter Visit Diagnoses Not on filedocumented in this encounter Care Teams School Secretary Relationship Specialty Start Date End Date Brea Maciel MD [address] [place] [phone] PCP - General 10/08/23 documented as of this encounter
--- OUTSIDE RECORDS SUMMARY | 2024-07-11 10:57 | XMS_ITS | Encounter Summary ---
Author Organization [employer] Address [address] [place] [address] Care Team Providers Care Community Relations Rep Name Role Phone Brea Maciel MD Primary Care Provider [phone] Encounter Details Date Type Department Care Team (Latest Contact Info) Description 06/16/2024 12:40 PM EST - 06/16/2024 11:59 PM EST Hospital Encounter [facility] Radiation Oncology [address] [phone] Discharge Disposition: Home or Self Care Social [...] Description 07/11/2024 1:45 PM EST Appointment [facility] Radiation Oncology [address] [place] [phone] 07/11/2024 1:50 PM EST Appointment [facility] Radiation Oncology [address] [place] [phone] Micaela Sandhu NP [address] [place] [address] [address] [place] [phone] 08/11/2024 1:30 PM EDT Office Visit [facility] Hematology Oncology [address] [place] [phone] Tawana Chang MD [address] [place] [address] documented as of this encounter Procedures Procedure Name Priority Date/Time Associated Diagnosis Comments RAD ONC MSQ TREATMENT SUMMARY Routine 06/16/2024 1:26 PM EST documented in this encounter Results * Rad Onc Msq Treatment Summary (06/16/2024 1:26 PM EST) Treatment Site Rt lower gum/Bneck MOSAIQ RADIATION ONCOLOGY Course Number 1 MOSAIQ RADIATION ONCOLOGY Prescribed Fractional Dose 200 cGray MOSAIQ RADIATION ONCOLOGY Prescribed Total Dose 6,000 cGray MOSAIQ RADIATION ONCOLOGY Actual Fractions Delivered 12 MOSAIQ RADIATION ONCOLOGY Actual Session Delivered Dose 200 cGray MOSAIQ RADIATION ONCOLOGY Actual Total Dose 2,400 cGray MOSAIQ RADIATION ONCOLOGY Prescribed Technique 3 ARC VMAT MOSAIQ RADIATION ONCOLOGY Elapsed Days 21 MOSAIQ RADIATION ONCOLOGY Start Date 05/26/2024 MOSAIQ RADIATION ONCOLOGY Last Date 06/16/2024 MOSAIQ RADIATION ONCOLOGY Prescribed Number of Fractions 30 MOSAIQ RADIATION ONCOLOGY 06/16/2024 1:26 PM EST Physician Radiation Oncology MD [facility] N ONCOLOGY ORDERABLES MOSAIQ RADIATION ONCOLOGY documented in this encounter Visit Diagnoses Not on filedocumented in this encounter Care Teams Community Relations Rep Relationship Specialty Start Date End Date Brea Maciel MD [address] [place] [phone] PCP - General 10/08/23 documented as of this encounter
--- OUTSIDE RECORDS SUMMARY | 2024-07-11 10:57 | XMS_ITS | Encounter Summary ---
Author Organization [email or web address] Address [address] [place] [address] Care Team Providers Care Vendor Specialist Name Role Phone Brea Maciel MD Primary Care Provider [phone] Encounter Details Date Type Department Care Team (Latest Contact Info) Description 06/30/2024 12:41 PM EST - 06/30/2024 11:59 PM EST Hospital Encounter [facility] Radiation Oncology [address] [phone] Discharge Disposition: Home or Self Care Social [...] Description 07/11/2024 1:45 PM EST Appointment [facility] Radiation Oncology [address] [place] [phone] 07/11/2024 1:50 PM EST Appointment [facility] Radiation Oncology [address] [place] [phone] Micaela Sandhu NP [address] [place] [address] [place] [phone] 08/11/2024 1:30 PM EDT Office Visit [facility] Hematology Oncology [address] [place] [phone] Tawana Chang MD [address] [place] [address] documented as of this encounter Procedures Procedure Name Priority Date/Time Associated Diagnosis Comments RAD ONC MSQ TREATMENT SUMMARY Routine 06/30/2024 1:20 PM EST documented in this encounter Results * Rad Onc Msq Treatment Summary (06/30/2024 1:20 PM EST) Treatment Site Rt lower gum/Bneck MOSAIQ RADIATION ONCOLOGY Course Number 1 MOSAIQ RADIATION ONCOLOGY Prescribed Fractional Dose 200 cGray MOSAIQ RADIATION ONCOLOGY Prescribed Total Dose 6,000 cGray MOSAIQ RADIATION ONCOLOGY Actual Fractions Delivered 21 MOSAIQ RADIATION ONCOLOGY Actual Session Delivered Dose 200 cGray MOSAIQ RADIATION ONCOLOGY Actual Total Dose 4,200 cGray MOSAIQ RADIATION ONCOLOGY Prescribed Technique 3 ARC VMAT MOSAIQ RADIATION ONCOLOGY Elapsed Days 35 MOSAIQ RADIATION ONCOLOGY Start Date 05/26/2024 MOSAIQ RADIATION ONCOLOGY Last Date 06/30/2024 MOSAIQ RADIATION ONCOLOGY Prescribed Number of Fractions 30 MOSAIQ RADIATION ONCOLOGY 06/30/2024 1:20 PM EST Physician Radiation Oncology RADIMARIAELENA N ONCOLOGY ORDERABLES MOSAIQ RADIATION ONCOLOGY documented in this encounter Visit Diagnoses Not on filedocumented in this encounter Care Teams Vendor Specialist Relationship Specialty Start Date End Date Brea Maciel MD [address] [place] [address] PCP - General 10/08/23 documented as of this encounter
--- OUTSIDE RECORDS SUMMARY | 2024-07-11 10:57 | XMS_ITS | Encounter Summary ---
Author Organization [employer] Address [address] [place] [address] Care Team Providers Care Business Services Clerk Name Role Phone Brea Maciel MD Primary Care Provider [phone] Encounter Details Date Type Department Care Team (Latest Contact Info) Description 06/25/2024 1:03 PM EST - 06/25/2024 11:59 PM EST Hospital Encounter Radiation Oncology [address] [phone] Discharge Disposition: Home or Self Care Social [...] Info) Description 07/11/2024 1:45 PM EST Appointment Radiation Oncology [address] [place] [phone] 07/11/2024 1:50 PM EST Appointment Radiation Oncology [address] [phone] Micaela Sandhu NP [address] [place] [address] [address] [place] [phone] 08/11/2024 1:30 PM EDT Office Visit Hematology Oncology [address] [place] [phone] Tawana Chang MD [address] [place] [address] documented as of this encounter Procedures Procedure Name Priority Date/Time Associated Diagnosis Comments RAD ONC MSQ TREATMENT SUMMARY Routine 06/25/2024 2:02 PM EST documented in this encounter Results * Rad Onc Msq Treatment Summary (06/25/2024 2:02 PM EST) Treatment Site Rt lower gum/Bneck MOSAIQ RADIATION ONCOLOGY Course Number 1 MOSAIQ RADIATION ONCOLOGY Prescribed Fractional Dose 200 cGray MOSAIQ RADIATION ONCOLOGY Prescribed Total Dose 6,000 cGray MOSAIQ RADIATION ONCOLOGY Actual Fractions Delivered 18 MOSAIQ RADIATION ONCOLOGY Actual Session Delivered Dose 200 cGray MOSAIQ RADIATION ONCOLOGY Actual Total Dose 3,600 cGray MOSAIQ RADIATION ONCOLOGY Prescribed Technique 3 ARC VMAT MOSAIQ RADIATION ONCOLOGY Elapsed Days 30 MOSAIQ RADIATION ONCOLOGY Start Date 05/26/2024 MOSAIQ RADIATION ONCOLOGY Last Date 06/25/2024 MOSAIQ RADIATION ONCOLOGY Prescribed Number of Fractions 30 MOSAIQ RADIATION ONCOLOGY 06/25/2024 2:02 PM EST Physician Radiation Oncology RADIATIO N ONCOLOGY ORDERABLES MOSAIQ RADIATION ONCOLOGY documented in this encounter Visit Diagnoses Not on filedocumented in this encounter Care Teams Business Services Clerk Relationship Specialty Start Date End Date Brea Maciel MD [address] [place] [address] PCP - General 10/08/23 documented as of this encounter
--- OUTSIDE RECORDS SUMMARY | 2024-07-11 10:57 | XMS_ITS | Encounter Summary ---
Author Organization [employer] Address [address] [place] [address] Care Team Providers Care Ux Architect Name Role Phone Brea Maciel MD Primary Care Provider [phone] Encounter Details Date Type Department Care Team (Latest Contact Info) Description 06/23/2024 1:12 PM EST - 06/23/2024 11:59 PM EST Hospital Encounter [facility] Radiation Oncology [address] [phone] Discharge Disposition: Home or Self Care Social [...] Description 07/11/2024 1:45 PM EST Appointment [facility] Radiation Oncology [address] [place] [phone] 07/11/2024 1:50 PM EST Appointment [facility] Radiation Oncology [address] [phone] Micaela Sandhu NP [address] [place] [address] [address] [place] [phone] 08/11/2024 1:30 PM EDT Office Visit [facility] Hematology Oncology [address] [place] [phone] Tawana Chang MD [address] [place] [address] documented as of this encounter Procedures Procedure Name Priority Date/Time Associated Diagnosis Comments RAD ONC MSQ TREATMENT SUMMARY Routine 06/23/2024 1:35 PM EST documented in this encounter Results * Rad Onc Msq Treatment Summary (06/23/2024 1:35 PM EST) Treatment Site Rt lower gum/Bneck MOSAIQ RADIATION ONCOLOGY Course Number 1 MOSAIQ RADIATION ONCOLOGY Prescribed Fractional Dose 200 cGray MOSAIQ RADIATION ONCOLOGY Prescribed Total Dose 6,000 cGray MOSAIQ RADIATION ONCOLOGY Actual Fractions Delivered 16 MOSAIQ RADIATION ONCOLOGY Actual Session Delivered Dose 200 cGray MOSAIQ RADIATION ONCOLOGY Actual Total Dose 3,200 cGray MOSAIQ RADIATION ONCOLOGY Prescribed Technique 3 ARC VMAT MOSAIQ RADIATION ONCOLOGY Elapsed Days 28 MOSAIQ RADIATION ONCOLOGY Start Date 05/26/2024 MOSAIQ RADIATION ONCOLOGY Last Date 06/23/2024 MOSAIQ RADIATION ONCOLOGY Prescribed Number of Fractions 30 MOSAIQ RADIATION ONCOLOGY 06/23/2024 1:35 PM EST Physician Radiation Oncology RADIATIO N ONCOLOGY ORDERABLES MOSAIQ RADIATION ONCOLOGY documented in this encounter Visit Diagnoses Not on filedocumented in this encounter Care Teams Ux Architect Relationship Specialty Start Date End Date Brea Maciel MD [address] [place] [phone] PCP - General 10/08/23 documented as of this encounter
--- OUTSIDE RECORDS SUMMARY | 2024-07-11 10:57 | XMS_ITS | Encounter Summary ---
Author Organization [employer] Address [address] [place] [address] Care Team Providers Care Media Production Manager Name Role Phone Brea Maciel MD Primary Care Provider [phone] Encounter Details Date Type Department Care Team (Latest Contact Info) Description 06/11/2024 12:36 PM EST - 06/11/2024 11:59 PM EST Hospital Encounter [facility] Radiation Oncology [address] [phone] Discharge Disposition: Home or Self Care Social [...] Info) Description 07/11/2024 1:45 PM EST Appointment [facility] Radiation Oncology [address] [place] [phone] 07/11/2024 1:50 PM EST Appointment [facility] Radiation Oncology [address] [phone] Micaela Sandhu NP [address] [place] [address] [address] [place] [phone] 08/11/2024 1:30 PM EDT Office Visit [facility] Hematology Oncology [address] [place] [phone] Tawana Chang MD [address] [place] [address] documented as of this encounter Procedures Procedure Name Priority Date/Time Associated Diagnosis Comments RAD ONC MSQ TREATMENT SUMMARY Routine 06/11/2024 1:27 PM EST documented in this encounter Results * Rad Onc Msq Treatment Summary (06/11/2024 1:27 PM EST) Treatment Site Rt lower gum/Bneck MOSAIQ RADIATION ONCOLOGY Course Number 1 MOSAIQ RADIATION ONCOLOGY Prescribed Fractional Dose 200 cGray MOSAIQ RADIATION ONCOLOGY Prescribed Total Dose 6,000 cGray MOSAIQ RADIATION ONCOLOGY Actual Fractions Delivered 11 MOSAIQ RADIATION ONCOLOGY Actual Session Delivered Dose 200 cGray MOSAIQ RADIATION ONCOLOGY Actual Total Dose 2,200 cGray MOSAIQ RADIATION ONCOLOGY Prescribed Technique 3 ARC VMAT MOSAIQ RADIATION ONCOLOGY Elapsed Days 16 MOSAIQ RADIATION ONCOLOGY Start Date 05/26/2024 MOSAIQ RADIATION ONCOLOGY Last Date 06/11/2024 MOSAIQ RADIATION ONCOLOGY Prescribed Number of Fractions 30 MOSAIQ RADIATION ONCOLOGY 06/11/2024 1:27 PM EST Physician Radiation Oncology RADIATIO N ONCOLOGY ORDERABLES MOSAIQ RADIATION ONCOLOGY documented in this encounter Visit Diagnoses Not on filedocumented in this encounter Care Teams Media Production Manager Relationship Specialty Start Date End Date Brea Maciel MD [address] [place] [phone] PCP - General 10/08/23 documented as of this encounter
--- OUTSIDE RECORDS SUMMARY | 2024-07-11 10:58 | XMS_ITS | Encounter Summary ---
Author Organization [facility] Address [address] [place] [address] Care Team Providers Care Electrician'S Assistant Name Role Phone Laura Hogue APRN Primary Care Provider [phone] Apple Villatoro DO Unavailable [phone] Encounter Details Date Type Department Care Team (Late st Contact Info) Description 03/01/2020 Scanned Document [facility] Colorectal Surgery [place] [address] [place] [phone] Laura Hogue APRN [address] [place], [place] [phone] Social History Tobacco Use Types Packs/Day Years Used Date Smoking Tobacco: Former Cigarettes Q uit: 11/24/1985 Smokeless Tobacco: Never Alcohol Use Standard Drinks/Week Comments No 0 (1 standard drink = 0.6 oz pur e alcohol) Sex and Gender Information Value Date Recorded Sex Assigned at Male 10/03/2022 12:28 PM EDT Gender Identity Male 10/03/2022 12:28 PM EDT Sexual Orientation Heterosexual (straight) 10/03 12:28 PM EDT documented as of this encounter Plan of Treatment Not on file documented as of this encounter Visit Diagnoses Not on filedocumented in this encounter Additional Health Concerns Infection Onset Date Last Indicated Resolved Time COVID-19 Comment:(+) test 08/26/2019, resulted 08/28/2019 08/28/2019 08/28/2019 03/01/2023 7:39 AM E DT documented as of this encounter Care Teams Electrician'S Assistant Relationship Specialty Start Date End Date Laura Hogue APRN [address] [place] [address] PCP - General Family Medicine 09/04/19 Apple Villatoro DO [address] [place] [address] [employer] Cardiovascular Disease 04/12/23 documented as of this encounter
--- OUTSIDE RECORDS SUMMARY | 2024-07-11 10:58 | XMS_ITS | Encounter Summary ---
Author Organization [facility] Address [address] [place] [address] Care Team Providers Care Stationary Engineer Name Role Phone Brea Maciel MD Primary Care Provider [phone] Reason for Visit * Reason Comments Oral Swelling Hx Oral cancer, radi ation tx last yesterday . C/o redness rt facial area Encounter Details Date Type Department Care Team (Late st Contact Info) Description 06/12/2024 11:49 AM EST - 06/12/2024 8:11 PM EST Emergency [facility] Emergency [address] [place] [phone] Clem Merrill MD [address] [place] [address] Right facial swelling (Primary Dx); Radiation adverse effect, initial encounter Discharge Disposition: Home or Self Care Social [...] Sign Reading Time Taken Comments Blood Pressure 138/80 06/12/2024 6:50 PM EST Pulse 80 06/12/2024 6:50 PM EST Temperature 37.1 ??C (98.8 ??F) 06/12/2024 6:50 PM ES T Respiratory Rate 20 06/12/2024 3:56 PM EST Oxygen Saturation 96% 06/12/2024 6:50 PM EST Inhaled Oxygen Concentration - - Weight 68 kg (150 lb) 06/12/2024 10:50 AM EST Height 162.6 cm (5' 4 ) 06/12/2024 10:50 AM EST Body Mass Index 25.75 06/12/2024 10:50 AM EST documented in this encounter Discharge Instructions * Discharge Instructions* Clem Merrill MD - 06/12/2024 7:41 PM EST You were seen in the hospital for your right facial swelling. You had no fever or any white blood cell count that was elevated. We did labs as well as CT imaging and no infectious concerns were found. Putting on prophylactic antibiotics. We recommend that you follow-up with your primary care doctor, your cancer doctor or even your surgeon that did the operation. Need to keep a close eye on this as we do not want this to develop any severe infection as it can become life-threatening and airway compromising. Return promptly if you feel that any of your symptoms are worsening, specifically having fevers, fatigue, lethargy, worsening swelling or worsening pain. Please take ibuprofen 2 times in a day if there is are able to take it. I was not able to reach out to your surgeons office to set up an appointment for you for tomorrow. It is prudent that you reach out to them tomorrow morning. * Attachments The following attachments cannot be sent through Care Everywhere. * Radiation Therapy: Managing Side Effects (Luxembourgish) documented in this encounter Medications at Time [...] for 10 days. 146 mL 06/12/2024 06/22/2024 oxyCODONE (OXY-IR) 5 mg immediate release capsule Take 1 capsule (5 mg total) by mouth every 6 (six) hours if needed for severe pain for up to 3 days. Max Daily Amount: 20 mg 12 capsule 06/12/2024 06/15/2024 saccharomyces boulardii (FLORASTOR) 250 mg capsule Take 1 capsule (250 mg total) by mouth 2 (two) times a day for 7 days. 14 capsule 06/12/2024 06/19/2024 documented as of this encounter Ordered Prescriptions Prescription Sig Dispensed Refills Start Date End Da te oxyCODONE (OXY-IR) 5 mg immediate release capsule Take 1 capsule (5 mg total) by mouth every 6 (six) hours if needed for severe pain for up to 3 days. Max Daily Amount: 20 mg 12 capsule 06/12/2024 06/15/2024 saccharomyces boulardii (FLORASTOR) 250 mg capsule Take 1 capsule (250 mg total) by mouth 2 (two) times a day for 7 days. 14 capsule 06/12/2024 06/19/2024 amoxicillin-clavulanate (AUGMENTIN) 600-42.9 mg/5 mL suspension Take 7.3 mL (875 mg total) by mouth 2 (two) times a day for 10 days. 146 mL 06/12/2024 06/22/2024 documented in this encounter Discharge Disposition Disposition Code Departure Means Destination Comment s Home or Self Care documented in this encounter Progress Notes * Abby Woods RN - 06/12/2024 10:49 AM EST Pt sts has hx Oral cancer, radiation tx, last yesterday . C/o redness rt facial area since last night . Sts discharge inside mouth . Denies fevers * Clem Merrill MD - 06/12/2024 10:46 AM EST HPI Chief Complaint Patient presents with Oral Swelling Hx Oral cancer, radiation tx last yesterday . C/o redness rt facial area 69-year-old male with a past medical history as below now presents with a chief complaint of right sided mandibular swelling that has been ongoing since yesterday. 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 Patient is currently on chemotherapy and radiation. Patient had the surgery at [facility], here he follows with Sister Gentry. Patient denies any complaints of fevers, chills, chest pain, shortness of breath, abdominal pain, nausea, vomiting or any diarrhea. 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 History provided by: Patient No data recorded Patient History Past Medical History: Diagnosis Date Arthritis DX:Arthritis Chronic kidney disease DX:Chronic kidney disease Depression DX:Depression Diabetes mellitus ([facility]/HCC) DX:Diabetes mellitus (HCC) Hypertension DX:Hypertension Obstructive sleep apnea syndrome 08/18/2015 DX:Obstructive sleep apnea syndrome Primary insomnia 04/16/2024 Prostate cancer ([facility]) DX:Prostate cancer ([facility]) Past Surgical History: Procedure Laterality Date FOOT SURGERY Right [address] PERCUTANEOUS MOUTH SURGERY Right 2023 PROSTATE SURGERY PROCEDURE:PROSTATE SURGERY Family History Problem Relation Name Age of Onset Diabetes Mother Colon cancer Father Social History Tobacco Use Smoking status: Former Types: Cigarettes Smokeless tobacco: Never Substance Use Topics Alcohol use: No Drug use: Not Currently Review of Systems Review of Systems Constitutional: Negative. HENT: Right-sided jaw pain Respiratory: Negative. Cardiovascular: Negative. Gastrointestinal: Negative. Physical Exam ED Triage Vitals Temp Heart Rate Resp BP 06/12/24 1050 06/12/24 1050 06/12/24 1050 06/12/24 1050 36.8 ??C (98.2 ??F) 90 16 (!) 149/72 SpO2 Temp Source Heart Rate Source Patient Position 06/12/24 1050 06/12/24 1050 06/12/24 1327 06/12/24 1327 100 % Oral Right;Radial Sitting BP Location FiO2 (%) 06/12/24 1327 -- Left arm;Upper Physical Exam Constitutional: General: He is not in acute distress. Appearance: Normal appearance. He is not ill-appearing or toxic-appearing. HENT: Head: Normocephalic and atraumatic. Mouth/Throat: Mouth: Mucous membranes are moist. Comments: Right lower jaw intraorally shows swelling of the right gums, tenderness to palpation, slight discharge. Eyes: Extraocular Movements: Extraocular movements intact. Conjunctiva/sclera: Conjunctivae normal. Cardiovascular: Rate and Rhythm: Normal rate and regular rhythm. Pulses: Normal pulses. Pulmonary: Effort: Pulmonary effort is normal. No respiratory distress. Breath sounds: Normal breath sounds. Abdominal: General: There is no distension. Palpations: Abdomen is soft. Tenderness: There is no abdominal tenderness. Musculoskeletal: General: Normal range of motion. Cervical back: Normal range of motion and neck supple. Right lower leg: No edema. Left lower leg: No edema. Skin: General: Skin is warm. Neurological: General: No focal deficit present. Mental Status: He is alert and oriented to person, place, and time. Mental status is at baseline. Psychiatric: Mood and Affect: Mood normal. ED Course & MDM ED Course as of 06/19/24 1319 [facility] Jun 12, [id number] I spoke to on-call ENT DrJoseph From [facility], she says she will notify the office and have the patient to call tomorrow for an appointment. [PP] ED Course User Index [PP] Clem Merrill MD Clinical Impressions as of 06/19/24 1319 Radiation adverse effect, initial encounter Right facial swelling Medical Decision Making 69 male presents with concern for right mandibular swelling after radiation. Concern for infection vs radiation related inflammation. 7:36 PM I spoken with the patient and the patient sister at bedside. Patient sisters [place]araguan-speaking and the patient opted for his sister to translate. Patient has no elevated white blood cell count or lactic acidosis. The differential also not show a shift. His CT is essentially unchanged from the CT that he had in early May. There is no obvious abscess or any collections. I do suspect that this may be radiation related inflammatory changes and serosanguineous discharge as opposed to purulent given the lack of infectious findings on the blood work and the CT imaging. I had shared decision-making with the patient and the sister, and we agreed that patient may be discharged with close follow-up to his primary care doctor, or the oncologist team or the surgeon that he goes to [facility] I have also paged [facility] ENT doctor on-call to discuss the cage and to arrange a follow-upwith them preferably for tomorrow or at the earliest on Sunday; I spoke with the director of online education ENT doctorand they agreed. Patient was given strict return precautions. Patient understood and agreed with plan. I specifically told him for any fevers, worsening swelling, worsening pain or other concerns come to the emergency department; and I explained the serious life-threatening infections that may develop should he not return promptly if this is worsening. Procedures Clem Merrill MD 06/12/24 1503 Clem Merrill MD 06/12/24 1938 Clem Merrill MD 06/19/24 1322 documented in this encounter Plan of Treatment Upcoming Encounters Date Type Department Care Team (Late st Contact Info) Description 07/11/2024 1:45 PM EST Appointment [facility] Radiation Oncology [address] [place] [phone] 07/11/2024 1:50 PM EST Appointment [facility] Radiation Oncology [address] [place] [phone] Micaela Sandhu NP [address] [place] [address] [place] [phone] 08/11/2024 1:30 PM EDT Office Visit [facility] Hematology Oncology [address] [place] [phone] Tawana Chang MD [address] [place] [address] documented as of this encounter Procedures Procedure Name Priority Date/Time Associated Diagnosis Comments CT NECK SOFT TISSUE W CONTRAST STAT 06/12/2024 4:12 PM EST CULTURE BLOOD STAT 06/12/2024 3:39 PM EST LACTATE STAT 06/12/2024 3:39 PM EST CBC WITH AUTO DIFFERENTIAL STAT 06/12/2024 10:58 AM EST CBC AND DIFFERENTIAL STAT 06/12/2024 10:58 AM EST BASIC METABOLIC PANEL STAT 06/12/2024 10:58 AM EST documented in this encounter Results * CT Neck Soft Tissue w Contrast (06/12/2024 4:12 PM EST) Anatomical Region Laterality Modality Head and Neck Computed Tomogra phy 06/12/2024 4:38 PM EST Impressions 06/12/2024 4:45 PM EST Similar postoperative changes without evidence of significant soft tissue swelling or abscess formation. -------- FINAL REPORT -------- Dictated By: Veronica Chappell Dictated Date: 06/12/2024 16:38 ET Assigned Physician: Veronica Chappell Reviewed and Electronically Signed By: Veronica Chappell Signed Date: 06/12/2024 16:45 ET Workstation ID: [id number] Transcribed By: Self Edit Transcribed Date: 06/12/2024 16:38 ET Narrative 06/12/2024 4:45 PM EST INDICATION: 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 Scanner: [employer] 64 slice VCT Dose reduction technique: ASIR (Adaptive statistical iterative reconstruction) and/or AEC (automated exposure control) Dose: total exam DLP 308 mGY per cm COMPARISON: May 06, 2024 FINDINGS: Postoperative changes noted along the right mandible consistent with resection and reconstruction. Metallic hardware appears intact and well aligned/unchanged. No fluid collection noted to suggest abscess. No bony erosion or displacement. No significant subcutaneous inflammatory changes. No soft tissue gas or unexpected radiopaque foreign body. Tongue deviation towards the left side is similar to the prior study. No parapharyngeal or retropharyngeal soft tissue swelling. Larynx and subglottic airway are unremarkable. Vascular structures are within normal limits with mass effect along the right internal jugular vein within the mid neck somewhat similar to the prior study. No cervical lymphadenopathy. Parotid glands as well as thyroid gland within normal limits. Normal left-sided submandibular gland with resection of the right side. Procedure Note Veronica Chappell MD - 06/12/2024 INDICATION: Oral carcinoma with right-sided facial redness with recentradiation therapy TECHNIQUE: CT scan of the neck obtained with 90 cc Isovue-370 administeredintravenously without incident. Scanner: [employer] 64 slice VCT Dose reduction technique: ASIR (Adaptive statistical iterativereconstruction) and/or AEC (automated exposure control) Dose: total exam DLP 308 mGY per cm COMPARISON: May 06, 2024 FINDINGS: Postoperative changes noted along the right mandible consistentwith resection and reconstruction. Metallic hardware appears intact andwell aligned/unchanged. No fluid collection noted to suggest abscess. No bony erosion ordisplacement. No significant subcutaneous inflammatory changes. No softtissue gas or unexpected radiopaque foreign body. Tongue deviation towards the left side is similar to the prior study. No parapharyngeal or retropharyngeal soft tissue swelling. Larynx andsubglottic airway are unremarkable. Vascular structures are within normallimits with mass effect along the right internal jugular vein within themid neck somewhat similar to the prior study. No cervical lymphadenopathy. Parotid glands as well as thyroid gland within normal limits. Normalleft-sided submandibular gland with resection of the right side. IMPRESSION: Similar postoperative changes without evidence of significant soft tissueswelling or abscess formation. -------- FINAL REPORT -------- Dictated By: Veronica Chappell Dictated Date: 06/12/2024 16:38 ET Assigned Physician: Veronica Chappell Reviewed and Electronically Signed By: Veronica Chappell Signed Date: 06/12/2024 16:45 ET Workstation ID: [id number] Transcribed By: Self Edit Transcribed Date: 06/12/2024 16:38 ET Clem Merrill MD IMG CT PROCEDURES * Lactate (06/12/2024 3:39 PM EST) [facility] Lactate 0.9 0.4 - 2.0 mmol/L LAB CHEMISTRY METHOD 06/12/2024 4:23 PM EST [facility] Blood Venous blood specimen / Unknown Venipuncture / Unknown 06/12/2024 3:39 PM EST 06/12/2024 3:50 PM EST Clem Merrill MD LAB BLOOD ORDERABLES [facility] [address] [place] [address], [place] [phone] * Blood culture (06/12/2024 3:39 PM EST) [facility] Culture, Blood No growth at 5 days 06/17/2024 5:01 PM EST [facility] Blood Venous blood specimen / Unknown Venipuncture / Unknown 06/12/2024 3:39 PM EST 06/12/2024 3:49 PM EST Clem Merrill MD LAB MICROBIOLOGY - G ENERAL ORDERABLES Performing Organization Address City/[facility]/ZIP Co de Phone Number [facility] [address] [place] [address], [place] [phone] * (ABNORMAL) CBC auto differential (06/12/2024 10:58 AM EST) [facility] WBC 6.8 4.8 - 10.8 [facility] LAB HEMETOLOGY METHOD 06/12/2024 11:19 AM [facility] RBC 5.80(H) 4.50 - 5.50 M/[facility] LAB HEMETOLOGY METHOD 06/12/2024 11:19 AM [facility] Hemoglobin 12.8(L) 13.5 - 17.5 g/dL LAB HEMETOLOGY METHOD 06/12/2024 11:19 AM [facility] Hematocrit 41.7(L) 42.0 - 54.0 % LAB HEMETOLOGY METHOD 06/12/2024 11:19 AM [facility] MCV 72.0(L) 79.0 - 98.0 FL LAB HEMETOLOGY METHOD 06/12/2024 11:19 AM [facility] MCH 22.1(L) 27.0 - 32.0 pcg LAB HEMETOLOGY METHOD 06/12/2024 11:19 AM [facility] MCHC 30.7(L) 32.0 - 37.0 g/dL LAB HEMETOLOGY METHOD 06/12/2024 11:19 AM [facility] RDW 15.2(H) 11.0 - 15.0 % LAB HEMETOLOGY METHOD 06/12/2024 11:19 AM [facility] Platelets 257 130 - 400 K/mcL LAB HEMETOLOGY METHOD 06/12/2024 11:19 AM [facility] MPV 10.1 7.0 - 11.0 FL LAB HEMETOLOGY METHOD 06/12/2024 11:19 AM [facility] NRBC 0.0 <1.0 % LAB HEMETOLOGY METHOD 06/12/2024 11:19 AM [facility] NRBC Absolute 0.00 <0.10 K/mcL LAB HEMETOLOGY METHOD 06/12/2024 11:19 AM [facility] Neutrophils Relative 67.3 % LAB HEMETOLOGY METHOD 06/12/2024 11:19 AM [facility] Lymphocytes Relative 18.5 % LAB HEMETOLOGY METHOD 06/12/2024 11:19 AM [facility] Monocytes Relative 10.1 % LAB HEMETOLOGY METHOD 06/12/2024 11:19 AM [facility] Eosinophils Relative 3.1 % LAB HEMETOLOGY METHOD 06/12/2024 11:19 AM EST [facility] Basophils Relative 0.6 % LAB HEMETOLOGY METHOD 06/12/2024 11:19 AM [facility] Immature Granulocytes Relative 0.4 % LAB HEMETOLOGY METHOD 06/12/2024 11:19 AM [facility] Neutrophils Absolute 4.59 1.50 - 7.00 K/mcL LAB HEMETOLOGY METHOD 06/12/2024 11:19 AM [facility] Lymphocytes Absolute 1.26 1.00 - 5.00 K/mcL LAB HEMETOLOGY METHOD 06/12/2024 11:19 AM [facility] Monocytes Absolute 0.69 0.20 - 1.00 K/mcL LAB HEMETOLOGY METHOD 06/12/2024 11:19 AM [facility] Eosinophils Absolute 0.21 0.00 - 0.50 K/mcL LAB HEMETOLOGY METHOD 06/12/2024 11:19 AM [facility] Basophils Absolute 0.04 0.00 - 0.20 K/mcL LAB HEMETOLOGY METHOD 06/12/2024 11:19 AM [facility] Immature Granulocytes Absolute 0.03 0.00 - 0.03 K/mcL LAB HEMETOLOGY METHOD 06/12/2024 11:19 AM [facility] Blood Venous blood specimen / Unknown Venipuncture / Unknown 06/12/2024 10:58 AM EST 06/12/2024 11:10 AM EST Clem Merrill MD LAB BLOOD ORDERABLES [facility] [address] [place] [address], * (ABNORMAL) Basic metabolic panel (06/12/2024 10:58 AM EST) Sodium 135 133 - 145 mmol/L LAB CHEMISTRY METHOD 06/12/2024 11:47 AM [facility] Potassium 4.2 3.5 - 5.5 mmol/L LAB CHEMISTRY METHOD 06/12/2024 11:47 AM [facility] Chloride 102 96 - 110 mmol/L LAB CHEMISTRY METHOD 06/12/2024 11:47 AM [facility] CO2 28 21 - 32 mmol/L LAB CHEMISTRY METHOD 06/12/2024 11:47 AM [facility] Anion Gap 5 3 - 11 LAB CHEMISTRY METHOD 06/12/2024 11:47 AM [facility] Glucose 218(H) 70 - 100 mg/dL LAB CHEMISTRY METHOD 06/12/2024 11:47 AM [facility] BUN 11 5 - 25 mg/dL LAB CHEMISTRY METHOD 06/12/2024 11:47 AM [facility] Creatinine 1.22 0.70 - 1.30 mg/dL LAB CHEMISTRY METHOD 06/12/2024 11:47 AM [facility] eGFR 65 >=60 mL/min/1. 73m2 LAB CHEMISTRY METHOD 06/12/2024 11:47 AM [facility] Comment:Calculation based on the??Chronic Kidney Disease Epidemiology Collaboration (CKD-EPI) equation refit??without adjustment for race. BUN/Creatinine Ratio 9.0 LAB CHEMISTRY METHOD 06/12/2024 11:47 AM [facility] Calcium 9.6 8.5 - 10.5 mg/dL LAB CHEMISTRY METHOD 06/12/2024 11:47 AM [facility] Blood Venous blood specimen / Unknown Venipuncture / Unknown 06/12/2024 10:58 AM EST 06/12/2024 11:10 AM EST Clem Merrill MD LAB BLOOD ORDERABLES [facility] [address] [place] [address], documented in this encounter Visit Diagnoses Diagnosis Right facial swelling- Primary Swelling, mass, or lump in head and neck Radiation adverse effect, initial encounter documented in this encounter Administered Medications Inactive Administered Medications - up to 3 most recent administrations Medication Order MAR Action Action Date Dose Rate Site iopamidoL (ISOVUE-370) 370 mg iodine /mL (76 %) injection 100 mL 100 mL, intravenous, Once in imaging, Starting on Pauline 06/12/24 at 1608, For 1 dose Given 06/12/2024 4:09 PM EST 90 mL morphine injection 4 mg 4 mg, intravenous, Once, On Pauline 06/12/24 at 1506, For 1 dose Given 06/12/2024 3:54 PM EST 4 mg sodium chloride 0.9 % flush 10 mL 10 mL, intravenous, Once, On Pauline 06/12/24 at 1609, For 1 dose Given 06/12/2024 4:09 PM EST 10 mL documented in this encounter Active and Recently Administered Medications Times are shown in EST. Scheduled Medication Order 06/10/2024 06/11/2024 06/12/2024 iopamidoL (ISOVUE-370) 370 mg iodine /mL (76 %) injection 100 mL (COMPLETED) 100 mL, intravenous, Once in imaging, Starting on Pauline 06/12/24 at 1608, For 1 dose 1609 (Given - Provid er: Rose Crowley) morphine injection 4 mg (COMPLETED) 4 mg, intravenous, Once, On Pauline 06/12/24 at 1506, For 1 dose 1554 (Given - Provid er: Kandice Valencia RN) sodium chloride 0.9 % flush 10 mL (COMPLETED) 10 mL, intravenous, Once, On Pauline 06/12/24 at 1609, For 1 dose 1609 (Given - Provid er: Rose Crowley) documented in this encounter Care Teams Stationary Engineer Relationship Specialty Start Date End Date Brea Maciel MD [address] [place] [phone] PCP - General 10/08/23 documented as of this encounter
--- OUTSIDE RECORDS SUMMARY | 2024-07-11 10:58 | XMS_ITS | Encounter Summary ---
Author Organization [facility] Address [address] [place] [address] Care Team Providers Care Time Study Clerk Name Role Phone Brea Maciel MD Primary Care Provider [phone] Encounter Details Date Type Department Care Team (Late st Contact Info) Description 06/16/2024 Telephone [facility] Radiation Oncology [address] [place] [address] [address] [place] [phone] Micaela Sandhu NP [address] [place] [phone] Social History Tobacco Use Types Packs/Day Years [...] as of this encounter Progress Notes * Micaela Sandhu NP - 06/16/2024 10:06 AM EST Spoke with patient with rubber grinder [phone] [address]. Patient states he is feeling a little better from 06/12/24. Lip is still swollen and has bloody discharge. He denies fevers. It is still painful. He is due to see Oncology in [place] 06/18/24. Dr. Flanagan would like him to resume treatment today. Patientis agreeable and will come in today at his scheduled time. documented in this encounter Plan of Treatment Upcoming Encounters Date Type Department Care Team (Late st Contact Info) Description 07/11/2024 1:45 PM EST Appointment [facility] Radiation Oncology [address] [place] [phone] 07/11/2024 1:50 PM EST Appointment [facility] Radiation Oncology [address] [place] [phone] Micaela Sandhu NP [address] [place] [phone] 08/11/2024 1:30 PM EDT Office Visit [facility] Hematology Oncology [address] [place] [phone] Tawana Chang MD [address] [place] [address] documented as of this encounter Visit Diagnoses Not on filedocumented in this encounter Care Teams Time Study Clerk Relationship Specialty Start Date End Date Brea Maciel MD [address] [place] [phone] PCP - General 10/08/23 documented as of this encounter
--- OUTSIDE RECORDS SUMMARY | 2024-07-11 10:58 | XMS_ITS | Encounter Summary ---
Author Organization [facility] Address [address] [place] [address] Care Team Providers Care Eap Consultant Name Role Phone Brea Maciel MD Primary Care Provider [phone] Encounter Details Date Type Department Care Team (Latest Contact Info) Description 06/18/2024 12:23 PM EST - 06/18/2024 11:59 PM EST Hospital Encounter [facility] Radiation Oncology [address] [phone] Discharge Disposition: Home or Self Care Social [...] - Inhaled Oxygen Concentration - - Weight 68.6 kg (151 lb 3.2 oz) 06/18/2024 1:30 P M EST Height - - Body Mass Index 25.95 06/12/2024 10:50 AM EST documented in this [...] EST Appointment [facility] Radiation Oncology [address] [place] [phone] 07/11/2024 1:50 PM EST Appointment [facility] Radiation Oncology [address] [place] [phone] Micaela Sandhu NP [address] [place] [address] [place] [phone] 08/11/2024 1:30 PM EDT Office Visit [facility] Hematology Oncology [address] [place] [phone] Tawana Chang MD [address] [place] [phone] documented as of this encounter Procedures Procedure Name Priority Date/Time Associated Diagnosis Comments RAD ONC MSQ TREATMENT SUMMARY Routine 06/18/2024 1:25 PM EST documented in this encounter Results * Rad Onc Msq Treatment Summary (06/18/2024 1:25 PM EST) Treatment Site Rt lower gum/Bneck MOSAIQ RADIATION ONCOLOGY Course Number 1 MOSAIQ RADIATION ONCOLOGY Prescribed Fractional Dose 200 cGray MOSAIQ RADIATION ONCOLOGY Prescribed Total Dose 6,000 cGray MOSAIQ RADIATION ONCOLOGY Actual Fractions Delivered 14 MOSAIQ RADIATION ONCOLOGY Actual Session Delivered Dose 200 cGray MOSAIQ RADIATION ONCOLOGY Actual Total Dose 2,800 cGray MOSAIQ RADIATION ONCOLOGY Prescribed Technique 3 ARC VMAT MOSAIQ RADIATION ONCOLOGY Elapsed Days 23 MOSAIQ RADIATION ONCOLOGY Start Date 05/26/2024 MOSAIQ RADIATION ONCOLOGY Last Date 06/18/2024 MOSAIQ RADIATION ONCOLOGY Prescribed Number of Fractions 30 MOSAIQ RADIATION ONCOLOGY 06/18/2024 1:25 PM EST Physician Radiation Oncology RADIMARIAELENA N ONCOLOGY ORDERABLES MOSAIQ RADIATION ONCOLOGY documented in this encounter Visit Diagnoses Not on filedocumented in this encounter Care Teams Eap Consultant Relationship Specialty Start Date End Date Brea Maciel MD [address] [place] [phone] PCP - General 10/08/23 documented as of this encounter
--- OUTSIDE RECORDS SUMMARY | 2024-07-11 10:58 | XMS_ITS | Encounter Summary ---
Author Organization [employer] Address [address] [place] [address] Care Team Providers Care Exhaust And Muffler Fitter Name Role Phone Brea Maciel MD Primary Care Provider [phone] Encounter Details Date Type Department Care Team (Latest Contact Info) Description 06/17/2024 12:41 PM EST - 06/17/2024 11:59 PM EST Hospital Encounter [facility] Radiation Oncology [address] [phone] Discharge Disposition: Home or Self Care Social [...] Appointment [facility] Radiation Oncology [address] [place] [phone] 07/11/2024 1:50 PM EST Appointment [facility] Radiation Oncology [address] [place] [phone] Micaela Sandhu NP [address] [place] [address] [address] [place] [phone] 08/11/2024 1:30 PM EDT Office Visit [facility] Hematology Oncology [address] [place] [phone] Tawana Chang MD [address] [place] [address] documented as of this encounter Procedures Procedure Name Priority Date/Time Associated Diagnosis Comments RAD ONC MSQ TREATMENT SUMMARY Routine 06/17/2024 1:26 PM EST documented in this encounter Results * Rad Onc Msq Treatment Summary (06/17/2024 1:26 PM EST) Treatment Site Rt lower gum/Bneck MOSAIQ RADIATION ONCOLOGY Course Number 1 MOSAIQ RADIATION ONCOLOGY Prescribed Fractional Dose 200 cGray MOSAIQ RADIATION ONCOLOGY Prescribed Total Dose 6,000 cGray MOSAIQ RADIATION ONCOLOGY Actual Fractions Delivered 13 MOSAIQ RADIATION ONCOLOGY Actual Session Delivered Dose 200 cGray MOSAIQ RADIATION ONCOLOGY Actual Total Dose 2,600 cGray MOSAIQ RADIATION ONCOLOGY Prescribed Technique 3 ARC VMAT MOSAIQ RADIATION ONCOLOGY Elapsed Days 22 MOSAIQ RADIATION ONCOLOGY Start Date 05/26/2024 MOSAIQ RADIATION ONCOLOGY Last Date 06/17/2024 MOSAIQ RADIATION ONCOLOGY Prescribed Number of Fractions 30 MOSAIQ RADIATION ONCOLOGY 06/17/2024 1:26 PM EST Physician Radiation Oncology MD CASTANON N ONCOLOGY ORDERABLES MOSAIQ RADIATION ONCOLOGY documented in this encounter Visit Diagnoses Not on filedocumented in this encounter Care Teams Exhaust And Muffler Fitter Relationship Specialty Start Date End Date Brea Maciel MD [address] [place] [address] PCP - General 10/08/23 documented as of this encounter
--- OUTSIDE RECORDS SUMMARY | 2024-07-11 10:58 | XMS_ITS | Encounter Summary ---
Author Organization [facility] Address [address] [place] [address] Care Team Providers Care Moving Consultant Name Role Phone Lennie Laura ESTRADA Primary Care Provider [phone] Apple Villatoro DO Unavailable [phone] Encounter Details Date Type Department Care Team (Late st Contact Info) Description 08/31/2022 Scanned Document [facility] [address] [facility] [address] [place] [phone] Shabnam Merrill MD [address] [place] [address] Social History Tobacco Use Types Packs/Day Years Used Date Smoking Tobacco: Former Smokeless Tobacco: Never Comments:quit smoking 32 yea rs ago as per pt Alcohol Use Standard Drinks/Week Comments No 0 (1 standard drink = 0.6 oz pur e alcohol) Sex and Gender Information Value Date Recorded Sex Assigned at Male 10/03/2022 12:28 PM EDT Gender Identity Male 10/03/2022 12:28 PM EDT Sexual Orientation Heterosexual (straight) 10/03 12:28 PM EDT COVID-19 Exposure Response Date Recorded In the last 10 days, have yo u been in contact with someone who was confirmed or suspected to have Coronavirus/COVID-19? No / Unsure 08/30/2022 10:24 AM EDT documented as of this encounter Plan of Treatment Not on file documented as of this encounter Procedures Procedure Name Priority Date/Time Associated Diagnosis Comments PATHOLOGY REPORT 08/31/2022 12:0 0 AM EDT documented in this encounter Results * PATHOLOGY REPORT (08/31/2022 12:00 AM EDT) Shabnam Merrill MD PATHOLOGY/CYTOLOGY O T[facility]ER[facility]HELLY documented in this encounter Visit Diagnoses Not on filedocumented in this encounter Additional Health Concerns Infection Onset Date Last Indicated Resolved Time COVID-19 Comment:(+) test 08/26/2019, resulted 08/28/2019 08/28/2019 08/28/2019 03/01/2023 7:39 AM E DT documented as of this encounter Care Teams Moving Consultant Relationship Specialty Start Date End Date Laura Hogue APRN [address] [place] [phone] PCP - General Family Medicine 09/04/19 Apple Villatoro DO [address] [place] [address] Appliance Worker Cardiovascular Disease 04/12/23 documented as of this encounter
--- OUTSIDE RECORDS SUMMARY | 2024-07-11 10:59 | XMS_ITS | Clinical Summary ---
Author Organization [facility] Address [address] [place] [address] Phone Care Team Providers Care Pharmacognosist Name Role Phone Brea Maciel MD Primary Care Provider [phone] Allergies No known active allergies Medications Medication Sig Dispensed Refills Start Date End Date Status dulaglutide (Trulicity) 0.75 mg/0.5 mL pen injector injection Inject into the skin. Active amLODIPine (NORVASC) 10 mg tablet Take 1 tablet (10 mg total) by mouth daily. 11/16/2015 Active aspirin 81 mg chewable tablet Chew 1 tablet (81 mg total) daily. 04/10/2024 Active atorvastatin (LIPITOR) 10 mg tablet Take 1 tablet (10 mg total) by mouth daily. 01/27/2018 Active insulin glargine (LANTUS SoloStar) 100 unit/mL (3 mL) injection pen Inject 24 Units under the skin daily. 11/15/2015 Active insulin lispro 100 unit/mL injection Inject 0-20 Units under the skin 5 times daily. 03/25/2024 Active levothyroxine (SYNTHROID, LEVOTHROID) 50 mcg tablet Take 1 tablet (50 mcg total) by mouth daily. 09/28/2015 Active omeprazole (PriLOSEC) [address] capsule Take 1 capsule (20 mg total) by mouth daily. 04/10/2024 Active sertraline (ZOLOFT) 100 mg tablet Take 1 tablet (100 mg total) by mouth daily. 11/13/2015 Active acetaminophen (TYLENOL) 325 mg tablet Take 3 tablets (975 mg total) by mouth every 6 hours as needed. 04/10/2024 Active Alcohol Prep Pads pads, medicated USE 2 PADS FOUR TIMES DAILY 09/21/2023 Active betamethasone valerate (VALISONE) 0.1 % ointment APPLY TOPICALLY TO THE AFFECTED AREA(S) TWICE DAILY IN THE MORNING AND AT BEDTIME DIRECTED Active blood pressure test kit-large kit USE TO CHECK BLOOD PRESSURE ONCE DAILY IN THE MORNING DIRECTED 08/16/2023 Active blood sugar diagnostic (FreeStyle Lite Strips) test strip USE TO TEST BLOOD SUGAR FOUR TIMES DAILY 09/21/2023 Active FreeStyle Lite Meter monitoring kit 09/23/2023 Active chlorhexidine (PERIDEX) 0.12 % solution Use 15 mL in the mouth or throat 4 times daily. 04/10/2024 Active BD Madeleine 2nd Gen Pen Needle 32 gauge x 5/32 needle use to inject insulin Active BD Ultra-Fine Mini Pen Needle 31 gauge x 3/16 needle USE WITH LANTUS UNDER THE SKIN DAILY 07/13/2023 Active secukinumab (Cosentyx Pen) 150 mg/mL pen injector 03/02/2023 Active traZODone (DESYREL) 50 mg tablet Take by mouth at bedtime. Active cholecalciferol (VITAMIN D-3) 50 mcg (2,000 unit) capsule Take 50 mcg by mouth daily. 04/18/2024 Active doxepin (SINEquan) 10 mg capsule Take 1 capsule (10 mg total) by mouth. at bedtime Active nystatin (MYCOSTATIN) 100,000 unit/mL suspension Take 5 mL by mouth 4 (four) times a day for 14 days. Swish and swallow. Do not eat or drink for 30 min afterwards 280 mL 06/27/2024 07/11/2024 Active diphenhydrAMINE 12.5 mg/5 mL elixir 50 mg, aluminum-magnesiu m hydroxide-simethi cone 400-400-40 mg/5 mL suspension 20 mL, lidocaine 2 % solution 20 mL Swish and spit 5 mL every 3 (three) hours if needed for mucositis for up to 116 doses. 5-10 mLs every 3 hours. 580 each 2 07/04/2024 Active amoxicillin-clavu lanate (AUGMENTIN) 600-42.9 mg/5 mL suspension Take 7.3 mL (875 mg total) by mouth 2 (two) times a day for 10 days. 146 mL 06/12/2024 06/22/2024 saccharomyces boulardii (FLORASTOR) 250 mg capsule Take 1 capsule (250 mg total) by mouth 2 (two) times a day for 7 days. 14 capsule 06/12/2024 06/19/2024 oxyCODONE (OXY-IR) 5 mg immediate release capsule Take 1 capsule (5 mg total) by mouth every 6 (six) hours if needed for severe pain for up to 3 days. Max Daily Amount: 20 mg 12 capsule 06/12/2024 06/15/2024 Active Problems Problem Noted Date Diagnosed Date Primary insomnia 04/16/2024 Primary squamous cell carcinoma of lower gingiva 02/12/2024 Cancer Staging:Pathologic:Stage AB(pT4a, pN0, cM0) - Unsigned Overview (04/18/2024): 69 y.o. M smoker with a [id number] moderately differentiated SCC of the R mandibular gingiva, +PNI, +LVI, in the setting of a history of HTN, DM2, CKD3, HLD, hypothyroidism, prostate cancer, & JUN. He had a segmental mandibulectomy, neck dissection and tracheostomy, with a fibular free flap and split thickness skin graft on 03/06/2024. Last Assessment & Plan: We discussed his surgical pathology and stage of disease. Based on his relative risk factors of +PNI, +LVI, and T3 stage, I recommend that he receive radiosensitizing chemotherapy weekly with radiation. We discussed the rational behind adding chemotherapy to adjuvant radiation post-surgery because it reduces the rate of recurrent cancer by about 1/3 in higher risk cancers. His history of CKD3 and DM2 is concerning for the tolerability of weekly Cisplatin, although recent creatinine has been normal. Weekly Taxol 50mg/m2 and Carboplatin AUC=2 with radiation is a more prudent option. When informed of the 6-week daily treatment schedule for radiation, he expressed a strong desire to be treated closer to home where his social support is. I think this is appropriate. I told him every medical oncologist make their own independent judgement about what the best treatment is because there are a few options that are all within accepted guidelines, and the oncologist in [place] might not give exactly the same recommendation for treatment. Dysphagia 02/06/2024 Anxiety 12/24/2023 Depression 12/24/2023 Diabetes mellitus 12/24/2023 Hyperlipidemia 12/24/2023 Hypertension 12/24/2023 Hypothyroidism 12/24/2023 Psoriasis 12/24/2023 Continuous leakage of urine 10/05/2023 Polyp of colon 10/05/2023 Renal failure 09/27/2023 Transaminitis 09/27/2023 Chronic midline low back pain without sciatica 0 08/15/2023 Hepatic steatosis 07/24/2023 Lightheadedness 03/01/2023 Stage 3a chronic kidney disease 02/12/2023 Cough 08/26/2019 Suspected COVID-19 virus infection 08/26/2019 Reactive depression 08/26/2019 Lower abdominal pain 08/26/2019 Stage 1 chronic kidney disease 03/05/2018 Vasovagal syncope 03/05/2018 Mixed hyperlipidemia 05/10/2017 Hypothyroidism (acquired) 04/10/2017 Prostate cancer 11/25/2015 Overview (04/18/2024): Last Assessment & Plan: Referral to Urologist for further monitoring and treatment. Erectile dysfunction following radical prostatec jonathan 11/25/2015 Obstructive sleep apnea syndrome 08/18/2015 Snoring 06/16/2015 Essential hypertension 06/16/2015 Fatigue due to sleep pattern disturbance 016 Resolved Problems Problem Noted Date Diagnosed Date Resolved Date Oral cancer 04/17/2024 04/24/2024 Encounters Date Type Department Care Team Description 07/10/2024 11:10 AM EST Hospital Encounter [facility] Radiation Oncology [address] [phone] 07/09/2024 1:22 PM EST Hospital Encounter [facility] Radiation Oncology [address] [phone] 07/08/2024 1:09 PM EST Hospital Encounter [facility] Radiation Oncology [address] [phone] 07/08/2024 Education [facility] Radiation Oncology [address] [place] [phone] Brea Plunkett RN 07/07/2024 12:53 PM EST - 07/07/2024 11:59 PM EST Hospital Encounter [facility] Radiation Oncology [address] [place] [phone] Discharge Disposition: Home or Self Care 07/04/2024 1:50 PM EST - 07/04/2024 11:59 PM EST Hospital Encounter [facility] Radiation Oncology [address] [place] [phone] Leyla Flanagan MD 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) Discharge Disposition: Home or Self Care 07/04/2024 1:00 PM EST - 07/04/2024 11:59 PM EST Hospital Encounter [facility] Radiation Oncology [address] [place] [phone] Discharge Disposition: Home or Self Care 07/03/2024 12:51 PM EST - 07/03/2024 11:59 PM EST Hospital Encounter [facility] Radiation Oncology [address] [place] [phone] Discharge Disposition: Home or Self Care 07/02/2024 1:08 PM EST - 07/02/2024 11:59 PM EST Hospital Encounter [facility] Radiation Oncology [address] [place] [phone] Discharge Disposition: Home or Self Care 07/01/2024 1:07 PM EST - 07/01/2024 11:59 PM EST Hospital Encounter [facility] Radiation Oncology [address] [place] [phone] Discharge Disposition: Home or Self Care 06/30/2024 1:26 PM EST - 06/30/2024 11:59 PM EST Hospital Encounter [facility] Radiation Oncology [address] [place] [phone] Lázaor Campuzano MD Head and neck cancer (CMS/HCC) (Primary Dx) Discharge Disposition: Home or Self Care 06/30/2024 12:41 PM EST - 06/30/2024 11:59 PM EST Hospital Encounter [facility] Radiation Oncology [address] [place] [phone] Discharge Disposition: Home or Self Care 06/27/2024 1:24 PM EST - 06/27/2024 11:59 PM EST Hospital Encounter [facility] Radiation Oncology [address] [place] [phone] Leyla Flanagan MD 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) Discharge Disposition: Home or Self Care 06/27/2024 1:06 PM EST - 06/27/2024 11:59 PM EST Hospital Encounter [facility] Radiation Oncology [address] [place] [phone] Discharge Disposition: Home or Self Care 06/26/2024 1:00 PM EST - 06/26/2024 11:59 PM EST Hospital Encounter [facility] Radiation Oncology [address] [place] [phone] Discharge Disposition: Home or Self Care 06/25/2024 1:03 PM EST - 06/25/2024 11:59 PM EST Hospital Encounter [facility] Radiation Oncology [address] [place] [phone] Discharge Disposition: Home or Self Care 06/24/2024 1:05 PM EST - 06/24/2024 11:59 PM EST Hospital Encounter [facility] Radiation Oncology [address] [place] [phone] Discharge Disposition: Home or Self Care 06/23/2024 1:12 PM EST - 06/23/2024 11:59 PM EST Hospital Encounter [facility] Radiation Oncology [address] [place] [phone] Discharge Disposition: Home or Self Care 06/19/2024 12:41 PM EST - 06/19/2024 11:59 PM EST Hospital Encounter [facility] Radiation Oncology [address] [place] [phone] Discharge Disposition: Home or Self Care 06/18/2024 12:23 PM EST - 06/18/2024 11:59 PM EST Hospital Encounter [facility] Radiation Oncology [address] [place] [phone] Discharge Disposition: Home or Self Care 06/17/2024 1:26 PM EST - 06/17/2024 11:59 PM EST Hospital Encounter [facility] Radiation Oncology [address] [place] [phone] Leyla Flanagan MD 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) Discharge Disposition: Home or Self Care 06/17/2024 12:41 PM EST - 06/17/2024 11:59 PM EST Hospital Encounter [facility] Radiation Oncology [address] [place] [phone] Discharge Disposition: Home or Self Care 06/16/2024 12:40 PM EST - 06/16/2024 11:59 PM EST Hospital Encounter [facility] Radiation Oncology [address] [place] [phone] Discharge Disposition: Home or Self Care 06/16/2024 Telephone [facility] Radiation Oncology [address] [place] [phone] Micaela Sandhu NP 06/13/2024 Telephone [facility] Radiation Oncology [address] [place] [phone] Leyla Flanagan MD 06/12/2024 11:49 AM EST - 06/12/2024 8:11 PM EST Emergency [facility] Emergency [address] [place] [phone] Clem Merrill MD Right facial swelling (Primary Dx); Radiation adverse effect, initial encounter Discharge Disposition: Home or Self Care 06/11/2024 12:36 PM EST - 06/11/2024 11:59 PM EST Hospital Encounter [facility] Radiation Oncology [address] [place] [phone] Discharge Disposition: Home or Self Care 06/10/2024 12:49 PM EST - 06/10/2024 11:59 PM EST Hospital Encounter [facility] Radiation Oncology [address] [place] [phone] Discharge Disposition: Home or Self Care 06/09/2024 12:47 PM EST - 06/09/2024 11:59 PM EST Hospital Encounter [facility] Radiation Oncology [address] [place] [phone] Discharge Disposition: Home or Self Care 06/06/2024 1:50 PM EST - 06/06/2024 11:59 PM EST Hospital Encounter [facility] Radiation Oncology [address] [place] [phone] Leyla Flanagan MD 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) Discharge Disposition: Home or Self Care 06/06/2024 12:37 PM EST - 06/06/2024 11:59 PM EST Hospital Encounter [facility] Radiation Oncology [address] [place] [phone] Discharge Disposition: Home or Self Care 06/05/2024 1:04 PM EST - 06/05/2024 11:59 PM EST Hospital Encounter [facility] Radiation Oncology [address] [place] [phone] Discharge Disposition: Home or Self Care 06/03/2024 12:51 PM EST - 06/03/2024 11:59 PM EST Hospital Encounter [facility] Radiation Oncology [address] [place] [phone] Discharge Disposition: Home or Self Care 06/02/2024 12:32 PM EST - 06/02/2024 11:59 PM EST Hospital Encounter [facility] Radiation Oncology [address] [place] [phone] Discharge Disposition: Home or Self Care 05/30/2024 1:28 PM EST - 05/30/2024 11:59 PM EST Hospital Encounter [facility] Radiation Oncology [address] [place] [phone] Micha Wong MD 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) Discharge Disposition: Home or Self Care 05/26/2024 1:06 PM EST - 05/26/2024 11:59 PM EST Hospital Encounter [facility] Radiation Oncology [address] [place] [phone] Discharge Disposition: Home or Self Care 05/23/2024 12:45 PM EST - 05/23/2024 11:59 PM EST Hospital Encounter [facility] Radiation Oncology [address] [place] [phone] Leyla Flanagan MD 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) Discharge Disposition: Home or Self Care 05/23/2024 12:13 PM EST - 05/23/2024 11:59 PM EST Hospital Encounter [facility] Radiation Oncology [address] [place] [phone] Leyla Flanagan MD Discharge Disposition: Home or Self Care 05/22/2024 7:57 AM EST - 05/22/2024 11:59 PM EST Hospital Encounter [facility] Radiation Oncology [address] [place] [phone] Discharge Disposition: Home or Self Care 05/21/2024 Telephone [facility] Radiation Oncology [address] [place] [phone] Rose Mary Holland RN 05/08/2024 9:00 AM EST - 05/08/2024 11:59 PM EST Hospital Encounter [facility] Radiation Oncology [address] [place] [phone] Leyla Flanagan MD 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) Discharge Disposition: Home or Self Care 05/08/2024 8:15 AM EST - 05/08/2024 11:59 PM EST Hospital Encounter [facility] Radiation Oncology [address] [place] [phone] 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) Discharge Disposition: Home or Self Care 05/07/2024 1:45 PM EST Office Visit [facility] Hematology Oncology [address] [place] [phone] Tawana Chang MD 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) 05/06/2024 9:28 AM EST - 05/06/2024 11:59 PM EST Hospital Encounter [facility] CT Scan [address] [place] [phone] 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) Discharge Disposition: Home or Self Care 04/24/2024 1:45 PM EST - 04/24/2024 11:59 PM EST Hospital Encounter [facility] Radiation Oncology [address] [place] [phone] Leyla Flanagan MD 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); Head and neck cancer (CMS/HCC) Discharge Disposition: Home or Self Care 04/24/2024 1:44 PM EST - 04/24/2024 11:59 PM EST Hospital Encounter [facility] Radiation Oncology [address] [place] [phone] Discharge Disposition: Home or Self Care 04/17/2024 2:00 PM EST Office Visit [facility] Hematology Oncology [address] [place] [phone] Tawana Chang MD Oral cancer (CMS/HCC) 04/14/2024 Telephone [facility] Hematology Oncology [address] [place] [phone] Michael Starks [place] Referred to RD from Last 3 Months Immunizations Name Administration Dates Next Due Hepatitis A Adult (Havrix; Vaqta) 19yo and older 10/05/2023 Influenza Quadrivalent, with preservative (Fluzone; Afluria) 6mo and older 02/24/2018 Pneumococcal conjugate 20 va lent (Prevnar 20, PCV 20) 2mo and older 10/05/2023 Tdap Tetanus diptheria acell ular pertussis (Boostrix; Adacel) 7yo and older 08/17/2021,03/05/2018 Surgical History Surgery Date Site/Laterality Comments PROSTATE SURGERY PROCEDURE:PROSTATE SURGERY G-TUBE PLACE PERCUTANEOUS FOOT SURGERY 06/04/1996 - 06/03/1997 Right MOUTH SURGERY 06/04/2023 - 06/03/2024 Right Medical History Medical History Date Comments Hypertension DX:Hypertension Diabetes mellitus (CMS/HCC) DX:D iabetes mellitus (HCC) Obstructive sleep apnea syndrome 08/18/2015 DX:Obstructive sleep apnea syndrome Arthritis DX:Arthritis Depression DX:Depression Chronic kidney disease DX:Chroni c kidney disease Prostate cancer (CMS/HCC) DX:Pro state cancer (HCC) Primary insomnia 04/16/2024 Family History Medical History Relation Name Comments Colon cancer Father Diabetes Mother Relation Name Status Comments Father Mother Social History Tobacco Use Types Packs/Day Years Used Date Smoking Tobacco: Former Cigarettes Smokeless Tobacco: Never Tobacco Cessation:Counseling Given: Not Answered Alcohol Use Standard Drinks/Week Comments No 0 (1 standard drink = 0.6 oz pur e alcohol) Sex and Gender Information Value Date Recorded Sex Assigned at Not on file Gender Identity Not on file Sexual Orientation Not on file Job Start Date Occupation Industry Not on file Not on file Not on file Obstetrics History Last Filed Vital Signs Vital Sign Reading Time Taken Comments Blood Pressure 138/80 06/12/2024 6:50 PM EST Pulse 80 06/12/2024 6:50 PM EST Temperature 37.1 ??C (98.8 ??F) 06/12/2024 6:50 PM ES T Respiratory Rate 20 06/12/2024 3:56 PM EST Oxygen Saturation 96% 06/12/2024 6:50 PM EST Inhaled Oxygen Concentration - - Weight 66.5 kg (146 lb 9.6 oz) 07/07/2024 1:00 P M EST Height 162.6 cm (5' 4 ) 06/12/2024 10:50 AM EST Body Mass Index 25.16 06/12/2024 10:50 AM EST Plan of Treatment Upcoming Encounters Date Type Department Care Team (Late st Contact Info) Description 07/11/2024 1:45 PM EST Appointment [facility] Radiation Oncology [address] [phone] 07/11/2024 1:50 PM EST Appointment [facility] Radiation Oncology [address] [phone] Micaela Sandhu NP [address] [place] [address] [address] [place] [phone] 08/11/2024 1:30 PM EDT Office Visit [facility] Hematology Oncology [address] [place] [phone] Tawana Chang MD [address] [place] [address] Health Maintenance Due Date Last Done Comments COVID-19 Vaccine (#1) 02/06/1961 Diabetes: Annual Foot Exam 02/06/1966 Diabetes: Annual Retina Eye Exam 02/06/1966 Zoster Vaccines (1 of 2) 02/06/1975 RSV Immunization Patients 60+ Years Old (1 - Risk 60-74 years 1-dose series) 2016 Abdominal Aortic Aneurysm (AAA) Screen 05/03/2022 Colorectal Cancer Screening: Colonoscopy 05/03/2022 Falls Risk Assessment 05/03/2022 Medicare Annual Wellness Visit 05/03/2022 Social Influencers of Health Screening 05/03/2022 Influenza Vaccine (#1) 2024 02/24/2018 Diabetes: Annual Urine Albumin-Creatinine Ratio (uACR) 02/13/2024 02/12/2023 Diabetes: Blood Sugar Control Test (HGBA1C) 01/06/2025 07/09/2024, 04/16/2024, 03/05/2024, Additional history exists Diabetes: Annual GFR (Glomerular Filtration Rate) 06/12/2025 06/12/2024, 04/16/2024, 03/10/2024, Additional history exists Hypertension/CHF/CAD Annual BMP Blood Test 06/12/2025 06/12/2024, 04/16/2024, 03/10/2024, Additional history exists Depression Screening 07/09/2025 07/09/2024 Cholesterol Screening (Lipid Panel) 09/23/2028 09/24/2023, 03/06/2018 DTaP,Tdap,and Td Vaccines (3 - Td or Tdap) 08/18/2031 08/17/2021, 03/05/2018 Hepatitis C Screening Completed 09/24/2023 Hepatitis A Vaccines Aged Out 10/05/2023 No long er eligible based on patient's age to complete this topic Pneumococcal Vaccine: 65+ Years Completed 10/05/2023 HIB Vaccines Aged Out No longer eligi ble based on patient's age to complete this topic HPV Vaccines Aged Out No longer eligi ble based on patient's age to complete this topic Hepatitis B Vaccines Aged Out No long er eligible based on patient's age to complete this topic IPV Vaccines Aged Out No longer eligi ble based on patient's age to complete this topic MMR Vaccines Aged Out No longer eligi ble based on patient's age to complete this topic Meningococcal ACWY Vaccine Aged Out N o longer eligible based on patient's age to complete this topic RSV Immunization Patients Under 20 months Aged Out No longer eligible based on patient's age to complete this topic Varicella Vaccines Aged Out No longer eligible based on patient's age to complete this topic Procedures Procedure Name Priority Date/Time Associated Diagnosis Comments RAD ONC MSQ TREATMENT SUMMARY Routine 07/10/2024 12:03 PM EST RAD ONC MSQ TREATMENT SUMMARY Routine 07/09/2024 1:45 PM EST RAD ONC MSQ TREATMENT SUMMARY Routine 07/08/2024 1:20 PM EST RAD ONC MSQ TREATMENT SUMMARY Routine 07/07/2024 1:36 PM EST RAD ONC MSQ TREATMENT SUMMARY Routine 07/04/2024 2:07 PM EST RAD ONC MSQ TREATMENT SUMMARY Routine 07/03/2024 1:49 PM EST RAD ONC MSQ TREATMENT SUMMARY Routine 07/02/2024 1:32 PM EST RAD ONC MSQ TREATMENT SUMMARY Routine 07/01/2024 2:05 PM EST RAD ONC MSQ TREATMENT SUMMARY Routine 06/30/2024 1:20 PM EST RAD ONC MSQ TREATMENT SUMMARY Routine 06/27/2024 1:24 PM EST RAD ONC MSQ TREATMENT SUMMARY Routine 06/26/2024 1:31 PM EST RAD ONC MSQ TREATMENT SUMMARY Routine 06/25/2024 2:02 PM EST RAD ONC MSQ TREATMENT SUMMARY Routine 06/24/2024 1:58 PM EST RAD ONC MSQ TREATMENT SUMMARY Routine 06/23/2024 1:35 PM EST RAD ONC MSQ TREATMENT SUMMARY Routine 06/19/2024 1:25 PM EST RAD ONC MSQ TREATMENT SUMMARY Routine 06/18/2024 1:25 PM EST RAD ONC MSQ TREATMENT SUMMARY Routine 06/17/2024 1:26 PM EST RAD ONC MSQ TREATMENT SUMMARY Routine 06/16/2024 1:[address] NECK SOFT TISSUE W CONTRAST STAT 06/12/2024 4:12 PM EST LACTATE STAT 06/12/2024 3:39 PM EST CULTURE BLOOD STAT 06/12/2024 3:39 PM EST CBC WITH AUTO DIFFERENTIAL STAT 06/12/2024 10:58 AM EST BASIC METABOLIC PANEL STAT 06/12/2024 10:58 AM EST CBC AND DIFFERENTIAL STAT 06/12/2024 10:58 AM EST RAD ONC MSQ TREATMENT SUMMARY Routine 06/11/2024 1:27 PM EST RAD ONC MSQ TREATMENT SUMMARY Routine 06/10/2024 1:42 PM EST RAD ONC MSQ TREATMENT SUMMARY Routine 06/09/2024 1:36 PM EST RAD ONC MSQ TREATMENT SUMMARY Routine 06/06/2024 2:05 PM EST RAD ONC MSQ TREATMENT SUMMARY Routine 06/05/2024 1:24 PM EST RAD ONC MSQ TREATMENT SUMMARY Routine 06/02/2024 1:50 PM EST RAD ONC MSQ TREATMENT SUMMARY Routine 05/30/2024 1:28 PM EST RAD ONC MSQ TREATMENT SUMMARY Routine 05/29/2024 2:04 PM EST RAD ONC MSQ TREATMENT SUMMARY Routine 05/27/2024 1:36 PM EST RAD ONC MSQ TREATMENT SUMMARY Routine 05/26/2024 1:[address] NECK SOFT TISSUE W CONTRAST STAT 05/06/2024 9:39 AM EST 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) from Last 3 Months Results * Rad Onc Msq Treatment Summary (07/10/2024 12:03 PM EST) Treatment Site Rt lower gum/Bneck MOSAIQ RADIATION ONCOLOGY Course Number 1 MOSAIQ RADIATION ONCOLOGY Prescribed Fractional Dose 200 cGray MOSAIQ RADIATION ONCOLOGY Prescribed Total Dose 6,000 cGray MOSAIQ RADIATION ONCOLOGY Actual Fractions Delivered 29 MOSAIQ RADIATION ONCOLOGY Actual Session Delivered Dose 200 cGray MOSAIQ RADIATION ONCOLOGY Actual Total Dose 5,800 cGray MOSAIQ RADIATION ONCOLOGY Prescribed Technique 3 ARC VMAT MOSAIQ RADIATION ONCOLOGY Elapsed Days 45 MOSAIQ RADIATION ONCOLOGY Start Date 05/26/2024 MOSAIQ RADIATION ONCOLOGY Last Date 07/10/2024 MOSAIQ RADIATION ONCOLOGY Prescribed Number of Fractions 30 MOSAIQ RADIATION ONCOLOGY 07/10/2024 12:0 3 PM EST Physician Radiation Oncology RADIATIO N ONCOLOGY ORDERABLES MOSAIQ RADIATION ONCOLOGY * Rad Onc Msq Treatment Summary (07/09/2024 [...] RADIATIO N ONCOLOGY ORDERABLES MOSAIQ RADIATION ONCOLOGY * Rad Onc Msq Treatment Summary (07/08/2024 [...] RADIATIO N ONCOLOGY ORDERABLES MOSAIQ RADIATION ONCOLOGY * Rad Onc Msq Treatment Summary (07/07/2024 [...] 07/07/2024 1:36 PM EST Physician Radiation Oncology RADIATIO N ONCOLOGY ORDERABLES MOSAIQ RADIATION ONCOLOGY * Rad Onc Msq Treatment Summary (07/04/2024 [...] 07/04/2024 2:07 PM EST Physician Radiation Oncology RADIATIO N ONCOLOGY ORDERABLES Performing Organization Address City/[facility]/ZIP Co de Phone Number MOSAIQ RADIATION ONCOLOGY * Rad Onc Msq Treatment Summary (07/03/2024 [...] 07/03/2024 1:49 PM EST Physician Radiation Oncology RADIATIO N ONCOLOGY ORDERABLES MOSAIQ RADIATION ONCOLOGY * Rad Onc Msq Treatment Summary (07/02/2024 [...] 07/02/2024 1:32 PM EST Physician Radiation Oncology RADIATIO N ONCOLOGY ORDERABLES MOSAIQ RADIATION ONCOLOGY * Rad Onc Msq Treatment Summary (07/01/2024 [...] 07/01/2024 2:05 PM EST Physician Radiation Oncology RADIATIO N ONCOLOGY ORDERABLES MOSAIQ RADIATION ONCOLOGY * Rad Onc Msq Treatment Summary (06/30/2024 [...] 06/30/2024 1:20 PM EST Physician Radiation Oncology RADIATIO N ONCOLOGY ORDERABLES Performing Organization Address City/[facility]/ZIP Co de Phone Number MOSAIQ RADIATION ONCOLOGY * Rad Onc Msq Treatment Summary (06/27/2024 [...] 06/27/2024 1:24 PM EST Physician Radiation Oncology RADIATIO N ONCOLOGY ORDERABLES MOSAIQ RADIATION ONCOLOGY * Rad Onc Msq Treatment Summary (06/26/2024 [...] RADIATIO N ONCOLOGY ORDERABLES MOSAIQ RADIATION ONCOLOGY * Rad Onc Msq Treatment Summary (06/25/2024 [...] RADIATIO N ONCOLOGY ORDERABLES MOSAIQ RADIATION ONCOLOGY * Rad Onc Msq Treatment Summary (06/24/2024 [...] Physician Radiation Oncology RADIATIO N ONCOLOGY ORDERABLES Performing Organization Address City/[facility]/ZIP Co de Phone Number MOSAIQ RADIATION ONCOLOGY * Rad Onc Msq Treatment Summary (06/23/2024 [...] Physician Radiation Oncology RADIATIO N ONCOLOGY ORDERABLES Performing Organization Address City/[facility]/ZIP Co de Phone Number MOSAIQ RADIATION ONCOLOGY * Rad Onc Msq Treatment Summary (06/19/2024 [...] RADIATIO N ONCOLOGY ORDERABLES MOSAIQ RADIATION ONCOLOGY * Rad Onc Msq Treatment Summary (06/18/2024 [...] 06/18/2024 1:25 PM EST Physician Radiation Oncology RADIATIO N ONCOLOGY ORDERABLES MOSAIQ RADIATION ONCOLOGY * Rad Onc Msq Treatment Summary (06/17/2024 [...] 06/17/2024 1:26 PM EST Physician Radiation Oncology RADIATIO N ONCOLOGY ORDERABLES MOSAIQ RADIATION ONCOLOGY * Rad Onc Msq Treatment Summary (06/16/2024 [...] 06/16/2024 1:26 PM EST Physician Radiation Oncology RADIATIO N ONCOLOGY ORDERABLES MOSAIQ RADIATION ONCOLOGY * CT Neck Soft Tissue w Contrast (06/12/2024 4:12 PM EST) Only the most recent of2 resultswithin the time period is included. Anatomical Region Laterality Modality Head and Neck Computed Tomogra phy 06/12/2024 4:38 PM EST Impressions 06/12/2024 4:45 PM EST Similar postoperative changes without evidence of significant soft tissue swelling or abscess formation. 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 Scanner: [employer] 64 slice VCT Dose reduction technique: ASIR [...] 90 cc Isovue-370 administeredintravenously without incident. Scanner: [employer] 64 slice VCT Dose reduction technique: ASIR [...] Signed Date: 06/12/2024 16:45 ET Workstation ID: [id number] Transcribed By: Self Edit Transcribed Date: 06/12/2024 16:38 ET Clem Merrill MD IMG CT PROCEDURES * Blood culture (06/12/2024 3:39 PM EST) [facility] Culture, Blood No growth at 5 days 06/17/2024 5:01 PM EST [facility] Blood Venous blood specimen / Unknown Venipuncture / Unknown 06/12/2024 3:39 PM EST 06/12/2024 3:49 PM EST Clem Merrill MD LAB MICROBIOLOGY - G ENERAL ORDERABLES Performing Organization Address City/[facility]/ZIP Co de Phone Number [facility] [address] [place] [address], [place] [phone] * Lactate (06/12/2024 3:39 PM EST) [facility] Lactate 0.9 0.4 - 2.0 mmol/L LAB CHEMISTRY METHOD 06/12/2024 4:23 PM EST [facility] Blood Venous blood specimen / Unknown Venipuncture / Unknown 06/12/2024 3:39 PM EST 06/12/2024 3:50 PM EST Clem Merrill MD LAB BLOOD ORDERABLES Performing Organization Address City/[facility]/ZIP Co de Phone Number [facility] [address] [place] [address], [place] [phone] * (ABNORMAL) CBC auto differential (06/12/2024 10:58 AM EST) Pathologist [facility] WBC 6.8 4.8 - 10.8 K/[facility] HEMETOLOGY METHOD 06/12/2024 11:19 AM EST [facility] RBC 5.80(H) 4.50 - 5.50 M/[facility] HEMETOLOGY METHOD 06/12/2024 11:19 AM EST [facility] Hemoglobin 12.8(L) 13.5 - 17.5 g/dL LAB HEMETOLOGY METHOD 06/12/2024 11:19 AM [facility] Hematocrit 41.7(L) 42.0 - 54.0 % LAB HEMETOLOGY METHOD 06/12/2024 11:19 AM [facility] MCV 72.0(L) 79.0 - 98.0 FL LAB HEMETOLOGY METHOD 06/12/2024 11:19 AM [facility] MCH 22.1(L) 27.0 - 32.0 pcg LAB HEMETOLOGY METHOD 06/12/2024 11:19 AM [facility] MCHC 30.7(L) 32.0 - 37.0 g/dL LAB HEMETOLOGY METHOD 06/12/2024 11:19 AM [facility] RDW 15.2(H) 11.0 - 15.0 % LAB HEMETOLOGY METHOD 06/12/2024 11:19 AM [facility] Platelets 257 130 - 400 K/mcL LAB HEMETOLOGY METHOD 06/12/2024 11:19 AM [facility] MPV 10.1 7.0 - 11.0 FL LAB HEMETOLOGY METHOD 06/12/2024 11:19 AM [facility] NRBC 0.0 <1.0 % LAB HEMETOLOGY METHOD 06/12/2024 11:19 AM [facility] NRBC Absolute 0.00 <0.10 K/mcL LAB HEMETOLOGY METHOD 06/12/2024 11:19 AM [facility] Neutrophils Relative 67.3 % LAB HEMETOLOGY METHOD 06/12/2024 11:19 AM [facility] Lymphocytes Relative 18.5 % LAB HEMETOLOGY METHOD 06/12/2024 11:19 AM [facility] Monocytes Relative 10.1 % LAB HEMETOLOGY METHOD 06/12/2024 11:19 AM [facility] Eosinophils Relative 3.1 % LAB HEMETOLOGY METHOD 06/12/2024 11:19 AM [facility] Basophils Relative 0.6 % LAB HEMETOLOGY METHOD 06/12/2024 11:19 AM [facility] Immature Granulocytes Relative 0.4 % LAB HEMETOLOGY METHOD 06/12/2024 11:19 AM [facility] Neutrophils Absolute 4.59 1.50 - 7.00 K/mcL LAB HEMETOLOGY METHOD 06/12/2024 11:19 AM [facility] Lymphocytes Absolute 1.26 1.00 - 5.00 K/mcL LAB HEMETOLOGY METHOD 06/12/2024 11:19 AM [facility] Monocytes Absolute 0.69 0.20 - 1.00 K/mcL LAB HEMETOLOGY METHOD 06/12/2024 11:19 AM EST [facility] Eosinophils Absolute 0.21 0.00 - 0.50 K/mcL LAB HEMETOLOGY METHOD 06/12/2024 11:19 AM [facility] Basophils Absolute 0.04 0.00 - 0.20 K/mcL LAB HEMETOLOGY METHOD 06/12/2024 11:19 AM [facility] Immature Granulocytes Absolute 0.03 0.00 - 0.03 K/mcL LAB HEMETOLOGY METHOD 06/12/2024 11:19 AM [facility] Blood Venous blood specimen / Unknown Venipuncture / Unknown 06/12/2024 10:58 AM EST 06/12/2024 11:10 AM EST Clem Merrill MD LAB BLOOD ORDERABLES [facility] [address] [place] [address], * (ABNORMAL) Basic metabolic panel (06/12/2024 10:58 AM EST) Sodium 135 133 - 145 mmol/L LAB CHEMISTRY METHOD 06/12/2024 11:47 AM [facility] Potassium 4.2 3.5 - 5.5 mmol/L LAB CHEMISTRY METHOD 06/12/2024 11:47 AM [facility] Chloride 102 96 - 110 mmol/L LAB CHEMISTRY METHOD 06/12/2024 11:47 AM [facility] CO2 28 21 - 32 mmol/L LAB CHEMISTRY METHOD 06/12/2024 11:47 AM [facility] Anion Gap 5 3 - 11 LAB CHEMISTRY METHOD 06/12/2024 11:47 AM [facility] Glucose 218(H) 70 - 100 mg/dL LAB CHEMISTRY METHOD 06/12/2024 11:47 AM [facility] BUN 11 5 - 25 mg/dL LAB CHEMISTRY METHOD 06/12/2024 11:47 AM [facility] Creatinine 1.22 0.70 - 1.30 mg/dL LAB CHEMISTRY METHOD 06/12/2024 11:47 AM [facility] eGFR 65 >=60 mL/min/1. 73m2 LAB CHEMISTRY METHOD 06/12/2024 11:47 AM [facility] Comment:Calculation based on the??Chronic Kidney Disease Epidemiology Collaboration (CKD-EPI) equation refit??without adjustment for race. BUN/Creatinine Ratio 9.0 LAB CHEMISTRY METHOD 06/12/2024 11:47 AM [facility] Calcium 9.6 8.5 - 10.5 mg/dL LAB CHEMISTRY METHOD 06/12/2024 11:47 AM [facility] Blood Venous blood specimen / Unknown Venipuncture / Unknown 06/12/2024 10:58 AM EST 06/12/2024 11:10 AM EST Clem Merrill MD LAB BLOOD ORDERABLES [facility] [address] [place] [address], * Rad Onc Msq Treatment Summary (06/11/2024 [...] RADIATIO N ONCOLOGY ORDERABLES MOSAIQ RADIATION ONCOLOGY * Rad Onc Msq Treatment Summary (06/10/2024 [...] RADIATIO N ONCOLOGY ORDERABLES MOSAIQ RADIATION ONCOLOGY * Rad Onc Msq Treatment Summary (06/09/2024 1:36 PM EST) Treatment Site Rt lower gum/Bneck MOSAIQ RADIATION ONCOLOGY Course Number 1 MOSAIQ RADIATION ONCOLOGY Prescribed Fractional Dose 200 cGray MOSAIQ RADIATION ONCOLOGY Prescribed Total Dose 6,000 cGray MOSAIQ RADIATION ONCOLOGY Actual Fractions Delivered 9 MOSAIQ RADIATION ONCOLOGY Actual Session Delivered Dose 200 cGray MOSAIQ RADIATION ONCOLOGY Actual Total Dose 1,800 cGray MOSAIQ RADIATION ONCOLOGY Prescribed Technique 3 ARC VMAT MOSAIQ RADIATION ONCOLOGY Elapsed Days 14 MOSAIQ RADIATION ONCOLOGY Start Date 05/26/2024 MOSAIQ RADIATION ONCOLOGY Last Date 06/09/2024 MOSAIQ RADIATION ONCOLOGY Prescribed Number of Fractions 30 MOSAIQ RADIATION ONCOLOGY 06/09/2024 1:36 PM EST Physician Radiation Oncology RADIATIO N ONCOLOGY ORDERABLES MOSAIQ RADIATION ONCOLOGY * Rad Onc Msq Treatment Summary (06/06/2024 2:05 PM EST) Treatment Site Rt lower gum/Bneck MOSAIQ RADIATION ONCOLOGY Course Number 1 MOSAIQ RADIATION ONCOLOGY Prescribed Fractional Dose 200 cGray MOSAIQ RADIATION ONCOLOGY Prescribed Total Dose 6,000 cGray MOSAIQ RADIATION ONCOLOGY Actual Fractions Delivered 8 MOSAIQ RADIATION ONCOLOGY Actual Session Delivered Dose 200 cGray MOSAIQ RADIATION ONCOLOGY Actual Total Dose 1,600 cGray MOSAIQ RADIATION ONCOLOGY Prescribed Technique 3 ARC VMAT MOSAIQ RADIATION ONCOLOGY Elapsed Days 11 MOSAIQ RADIATION ONCOLOGY Start Date 05/26/2024 MOSAIQ RADIATION ONCOLOGY Last Date 06/06/2024 MOSAIQ RADIATION ONCOLOGY Prescribed Number of Fractions 30 MOSAIQ RADIATION ONCOLOGY 06/06/2024 2:05 PM EST Physician Radiation Oncology RADIATIO N ONCOLOGY ORDERABLES MOSAIQ RADIATION ONCOLOGY * Rad Onc Msq Treatment Summary (06/05/2024 1:24 PM EST) Treatment Site Rt lower gum/Bneck MOSAIQ RADIATION ONCOLOGY Course Number 1 MOSAIQ RADIATION ONCOLOGY Prescribed Fractional Dose 200 cGray MOSAIQ RADIATION ONCOLOGY Prescribed Total Dose 6,000 cGray MOSAIQ RADIATION ONCOLOGY Actual Fractions Delivered 7 MOSAIQ RADIATION ONCOLOGY Actual Session Delivered Dose 200 cGray MOSAIQ RADIATION ONCOLOGY Actual Total Dose 1,400 cGray MOSAIQ RADIATION ONCOLOGY Prescribed Technique 3 ARC VMAT MOSAIQ RADIATION ONCOLOGY Elapsed Days 10 MOSAIQ RADIATION ONCOLOGY Start Date 05/26/2024 MOSAIQ RADIATION ONCOLOGY Last Date 06/05/2024 MOSAIQ RADIATION ONCOLOGY Prescribed Number of Fractions 30 MOSAIQ RADIATION ONCOLOGY 06/05/2024 1:24 PM EST Physician Radiation Oncology RADIATIO N ONCOLOGY ORDERABLES MOSAIQ RADIATION ONCOLOGY * Rad Onc Msq Treatment Summary (06/02/2024 1:50 PM EST) Treatment Site Rt lower gum/Bneck MOSAIQ RADIATION ONCOLOGY Course Number 1 MOSAIQ RADIATION ONCOLOGY Prescribed Fractional Dose 200 cGray MOSAIQ RADIATION ONCOLOGY Prescribed Total Dose 6,000 cGray MOSAIQ RADIATION ONCOLOGY Actual Fractions Delivered 5 MOSAIQ RADIATION ONCOLOGY Actual Session Delivered Dose 200 cGray MOSAIQ RADIATION ONCOLOGY Actual Total Dose 1,000 cGray MOSAIQ RADIATION ONCOLOGY Prescribed Technique 3 ARC VMAT MOSAIQ RADIATION ONCOLOGY Elapsed Days 7 MOSAIQ RADIATION ONCOLOGY Start Date 05/26/2024 MOSAIQ RADIATION ONCOLOGY Last Date 06/02/2024 MOSAIQ RADIATION ONCOLOGY Prescribed Number of Fractions 30 MOSAIQ RADIATION ONCOLOGY 06/02/2024 1:50 PM EST Physician Radiation Oncology RADIATIO N ONCOLOGY ORDERABLES MOSAIQ RADIATION ONCOLOGY * Rad Onc Msq Treatment Summary (05/30/2024 1:28 PM EST) Treatment Site Rt lower gum/Bneck MOSAIQ RADIATION ONCOLOGY Course Number 1 MOSAIQ RADIATION ONCOLOGY Prescribed Fractional Dose 200 cGray MOSAIQ RADIATION ONCOLOGY Prescribed Total Dose 6,000 cGray MOSAIQ RADIATION ONCOLOGY Actual Fractions Delivered 4 MOSAIQ RADIATION ONCOLOGY Actual Session Delivered Dose 200 cGray MOSAIQ RADIATION ONCOLOGY Actual Total Dose 800 cGray MOSAIQ RADIATION ONCOLOGY Prescribed Technique 3 ARC VMAT MOSAIQ RADIATION ONCOLOGY Elapsed Days 4 MOSAIQ RADIATION ONCOLOGY Start Date 05/26/2024 MOSAIQ RADIATION ONCOLOGY Last Date 05/30/2024 MOSAIQ RADIATION ONCOLOGY Prescribed Number of Fractions 30 MOSAIQ RADIATION ONCOLOGY 05/30/2024 1:28 PM EST Physician Radiation Oncology RADIATIO N ONCOLOGY ORDERABLES MOSAIQ RADIATION ONCOLOGY * Rad Onc Msq Treatment Summary (05/29/2024 2:04 PM EST) Treatment Site Rt lower gum/Bneck MOSAIQ RADIATION ONCOLOGY Course Number 1 MOSAIQ RADIATION ONCOLOGY Prescribed Fractional Dose 200 cGray MOSAIQ RADIATION ONCOLOGY Prescribed Total Dose 6,000 cGray MOSAIQ RADIATION ONCOLOGY Actual Fractions Delivered 3 MOSAIQ RADIATION ONCOLOGY Actual Session Delivered Dose 200 cGray MOSAIQ RADIATION ONCOLOGY Actual Total Dose 600 cGray MOSAIQ RADIATION ONCOLOGY Prescribed Technique 3 ARC VMAT MOSAIQ RADIATION ONCOLOGY Elapsed Days 3 MOSAIQ RADIATION ONCOLOGY Start Date 05/26/2024 MOSAIQ RADIATION ONCOLOGY Last Date 05/29/2024 MOSAIQ RADIATION ONCOLOGY Prescribed Number of Fractions 30 MOSAIQ RADIATION ONCOLOGY 05/29/2024 2:04 PM EST Physician Radiation Oncology RADIATIO N ONCOLOGY ORDERABLES MOSAIQ RADIATION ONCOLOGY * Rad Onc Msq Treatment Summary (05/27/2024 1:36 PM EST) Treatment Site Rt lower gum/Bneck MOSAIQ RADIATION ONCOLOGY Course Number 1 MOSAIQ RADIATION ONCOLOGY Prescribed Fractional Dose 200 cGray MOSAIQ RADIATION ONCOLOGY Prescribed Total Dose 6,000 cGray MOSAIQ RADIATION ONCOLOGY Actual Fractions Delivered 2 MOSAIQ RADIATION ONCOLOGY Actual Session Delivered Dose 200 cGray MOSAIQ RADIATION ONCOLOGY Actual Total Dose 400 cGray MOSAIQ RADIATION ONCOLOGY Prescribed Technique 3 ARC VMAT MOSAIQ RADIATION ONCOLOGY Elapsed Days 1 MOSAIQ RADIATION ONCOLOGY Start Date 05/26/2024 MOSAIQ RADIATION ONCOLOGY Last Date 05/27/2024 MOSAIQ RADIATION ONCOLOGY Prescribed Number of Fractions 30 MOSAIQ RADIATION ONCOLOGY 05/27/2024 1:36 PM EST Physician Radiation Oncology RADIATIO N ONCOLOGY ORDERABLES MOSAIQ RADIATION ONCOLOGY * Rad Onc Msq Treatment Summary (05/26/2024 1:58 PM EST) Treatment Site Rt lower gum/Bneck MOSAIQ RADIATION ONCOLOGY Course Number 1 MOSAIQ RADIATION ONCOLOGY Prescribed Fractional Dose 200 cGray MOSAIQ RADIATION ONCOLOGY Prescribed Total Dose 6,000 cGray MOSAIQ RADIATION ONCOLOGY Actual Fractions Delivered 1 MOSAIQ RADIATION ONCOLOGY Actual Session Delivered Dose 200 cGray MOSAIQ RADIATION ONCOLOGY Actual Total Dose 200 cGray MOSAIQ RADIATION ONCOLOGY Prescribed Technique 3 ARC VMAT MOSAIQ RADIATION ONCOLOGY Elapsed Days 0 MOSAIQ RADIATION ONCOLOGY Start Date 05/26/2024 MOSAIQ RADIATION ONCOLOGY Last Date 05/26/2024 MOSAIQ RADIATION ONCOLOGY Prescribed Number of Fractions 30 MOSAIQ RADIATION ONCOLOGY 05/26/2024 1:58 PM EST Physician Radiation Oncology RADIMARIAELENA N ONCOLOGY ORDERABLES MOSAIQ RADIATION ONCOLOGY from Last 3 Months Care Teams Pharmacognosist Relationship Specialty Start Date End Date Brea Maciel MD [address] [place] [address] PCP - General 10/08/23
--- OUTSIDE RECORDS SUMMARY | 2024-07-11 10:59 | XMS_ITS | Encounter Summary ---
Author Organization [facility] Address [address] [place] [address] Care Team Providers Care Director Of Brand Marketing Name Role Phone Laura Hogue APRN Primary Care Provider [phone] Apple Villatoro DO Unavailable [phone] Encounter Details Date Type Department Care Team (Late st Contact Info) Description 03/08/2023 Scanned Document [address] [place] [phone] Provider, Generic Social History Tobacco Use Types Packs/Day Years [...] Procedure Name Priority Date/Time Associated Diagnosis Comments HOLTER MONITOR - 24 HOUR 03/08/2023 HOLTER MONITOR - 24 HOUR 03/07/2023 documented in this encounter Results * HOLTER MONITOR - 24 HOUR (03/08/2023) Anatomical Region Laterality Modality Other Narrative 03/08/2023 Ordered by an unspecified provider. Generic Provider [facility] ORDERABLES * HOLTER MONITOR - 24 HOUR (03/07/2023) Anatomical Region Laterality Modality Other Narrative 03/07/2023 Ordered by an unspecified provider. Generic Provider [facility] CARDIAC SERVICES ORDERABLES documented in this encounter Visit Diagnoses Not on filedocumented in this encounter Care Teams Director Of Brand Marketing Relationship Specialty Start Date End Date Laura Hogue APRN [address] [place] [id number] PCP - General Family Medicine 09/04/19 Apple Villatoro DO [address] [place] [phone] Patternmaker Helper Cardiovascular Disease 04/12/23 documented as of this encounter
--- OUTSIDE RECORDS SUMMARY | 2024-07-11 10:59 | XMS_ITS | Encounter Summary ---
Author Organization [facility] Address [address] [place] [address] Care Team Providers Care Donor Services Team Leader Name Role Phone Brea Maciel MD Primary Care Provider [phone] Encounter Details Date Type Department Care Team (Late Contact Info) Description 07/10/2024 11:10 AM EST Hospital Encounter [facility] Radiation Oncology [address] [place] [phone] Social History Tobacco Use Types Packs/Day Years [...] Info) Description 07/11/2024 1:45 PM EST Appointment [facility] Radiation Oncology [address] [place] [phone] 07/11/2024 1:50 PM EST Appointment [facility] Radiation Oncology [address] [place] [phone] Micaela Sandhu NP [address] [place] [address] Dr Garcia [facility] [place] [phone] 08/11/2024 1:30 PM EDT Office Visit [facility] Hematology Oncology [address] [place] [phone] Tawana Chang MD [address] [place] [address] documented as of this encounter Procedures Procedure Name Priority Date/Time Associated Diagnosis Comments RAD ONC MSQ TREATMENT SUMMARY Routine 07/10/2024 12:03 PM EST documented in this encounter Results [...] 12:0 3 PM EST Physician Radiation Oncology RADITAMIKOO N ONCOLOGY ORDERABLES MOSAIQ RADIATION ONCOLOGY documented in this encounter Visit Diagnoses Not on filedocumented in this encounter Care Teams Donor Services Team Leader Relationship Specialty Start Date End Date Brea Maciel MD [address] [place] [phone] PCP - General 10/08/23 documented as of this encounter
--- OUTSIDE RECORDS SUMMARY | 2024-07-11 10:59 | XMS_ITS ---
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 M smoker with a [id number] moderately differentiated SCC of the R mandibular [...] within accepted guidelines, and the oncologist in [place] might not give exactly the same recommendation [...] Fatigue due to sleep pattern disturbance 016 Current Oncology Plans CARBOplatin with Concurrent Radiation ( AUC 1.5 )* Plan Start Date:05/25/2024 Plan Provider:Tawana Chang MD Linked Problems Primary squamous cell carcin alexy of lower gingiva (CMS/HCC) Treatment Medications Current Day (Day 1 , Prescriptions - Planned for 05/25/2024) Next Day (Day 1, Cycle 1 - Planned for 05/26/2024) CARBOplatin (PARAPLATIN) chemo 250 mL IVPB (by AUC) No medications scheduled. CARBOplatin (PARAPLATIN) in sodium chloride 250 mL chemo IVPB Past Plans No past plan information found. Radiation Treatments * Treatment Site Started On Last Treated On Elapsed Days Fractions Complete Last Fraction Dose Given/Prescribed Total Dose Given/Prescribed Technique Rt lower gum/Bneck 05/26/20 24 07/10/2024 45 29 of 30 200 cGy / 200 cGy 5,800 cGy / 6,000 cGy 3 ARC VMAT Resolved Problems Problem Noted Date Diagnosed Date Resolved Date Oral cancer 04/17/2024 04/24/2024
--- OUTSIDE RECORDS SUMMARY | 2024-07-11 10:59 | XMS_ITS | Encounter Summary ---
Author Organization [facility] Address [address] [place] [address] Care Team Providers Care Science And Operations Officer Name Role Phone Laura Hogue APRN Primary Care Provider Apple Villatoro DO Unavailable [phone] Encounter Details Date Type Department Care Team (Late st Contact Info) Description 08/31/2022 Scanned Document [facility] [place] [address] [place] [address] [address] [phone] Laura Hogue APRN [address] [place], [place] [phone] Social History Tobacco Use Types Packs/Day Years [...] documented as of this encounter Care Teams Science And Operations Officer Relationship Specialty Start Date End Date Laura Hogue APRN [address] [place] [phone] PCP - General Family Medicine 09/04/19 Apple Villatoro DO [address] [place] [address] Needleworker Cardiovascular Disease 04/12/23 documented as of this encounter
[2024-07-11 12:12] LABS: Anion Gap 14 (12-20); Blood Urea Nitrogen 15 mg/dL (9-16); Calcium 9.5 mg/dL (8.4-10.2); Carbon Dioxide 28 mmol/L (22-29); Chloride 103 mmol/L (96-108); Estimated Glomerular Filt Rate > 60; Potassium 3.7 mmol/L (3.3-5.1); Sodium 141 mmol/L (135-145)
[2024-07-11 12:28] LABS: Vitamin D 25-OH Total 41.7 ng/mL (>30)
[2024-07-15 10:38] LABS: IgA 662 mg/dL (70-320); IgG 1071 mg/dL (600-1540); IgM 100 mg/dL (50-300)
== END 2024-07-11 10:08 | disposition home or self-care (01) ==
LOC: HO.HHCL 10:07
PROVIDERS: Visit Provider Internal Medicine Nephrology
DX: I12.9 Hypertensive chronic kidney disease with stage 1 through stage 4 chronic kidney disease, or unspecified chronic kidney disease (principal); E11.22 Type 2 diabetes mellitus with diabetic chronic kidney disease; N18.31 Chronic kidney disease, stage 3a; E11.21 Type 2 diabetes mellitus with diabetic nephropathy
CPT/HCPCS: 36415; 80051; 82306; 82310; 82565; 82784; 83970; 84100; 84520; 86334

== ENCOUNTER 2024-07-14 14:09 | Outpatient (REF) | payer OTHER, SELFPAY ==
--- OUTSIDE RECORDS SUMMARY | 2024-07-14 15:20 | XMS_ITS ---
Author Organization [facility] Address [address] [place] [phone] Care Team Providers Care Stand In Name Role Phone Laura Hogue Primary Care Provider Medications Medication SIG (Take, Route, Frequency, Duration) Notes Start Date End Date Status Lantus SoloStar 100 UNIT/ML INJECT 60 UNITS UNDER THE SKIN EVERY DAY Subcutaneous daily for 100 days Please dispensed 4 boxes Active Social History Sex Assigned At : Social History Observation Description Sex Assigned At Male Encounters Encounter Location Date Provider Diagnosis [address] [phone] 05/25/2023 Laura Hogue Type 2 diabetes mellitus [...] Feliciano SANTANA MDOB: 1955 (68 yo M)Acc No.[id number]:05/25/2023 Patient:?Steven SANTANA :1955???Age:68 Y???Sex:Male Address:[address] [place] [address] , [address], [place], [address] * Refills? Refill Lantus SoloStar Solution Pen-injector, 100 UNIT/ML, Subcutaneous, 4 Packet, INJECT 60 UNITS UNDER THE SKIN EVERY DAY, daily, 100 days, Refills=3 * true * Date:? Generated for Topher ji/Kanwal/Hernesto on:?07/14/2024 03:20 PM EST
--- OUTSIDE RECORDS SUMMARY | 2024-07-14 15:20 | XMS_ITS ---
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 M smoker with a [id number] moderately differentiated SCC of the R mandibular [...] within accepted guidelines, and the oncologist in [place] might not give exactly the same recommendation [...] Given/Prescribed Technique Rt lower gum/Bneck 05/26/20 24 07/11/2024 46 30 of 30 200 cGy / 200 cGy 6,000 cGy / 6,000 cGy 3 ARC VMAT Resolved Problems Problem Noted Date Diagnosed Date Resolved Date Oral cancer 04/17/2024 04/24/2024
--- OUTSIDE RECORDS SUMMARY | 2024-07-14 15:20 | XMS_ITS | Encounter Summary ---
Author Organization [facility] Address [address] [place] [address] Care Team Providers Care Chicken Hatchery Helper Name Role Phone Brea Maciel MD Primary Care Provider [phone] Encounter Details Date Type Department Care Team (Late Contact Info) Description 07/11/2024 1:12 PM EST Hospital Encounter [facility] Radiation Oncology [address] [place] [phone] Social History Tobacco Use Types Packs/Day Years Used Date Smoking Tobacco: Former Cigarettes Smokeless Tobacco: Never Alcohol Use Standard Drinks/Week Comments No 0 (1 standard drink = 0.6 oz pur e alcohol) Sex and Gender Information Value Date Recorded Sex Assigned at Not on file Legal Sex Male 3:32 PM EST Gender Identity Not on file Sexual Orientation Not on file Occupation Industry Job Start Date Job End Date retired Not on file Not on file Not on file documented as of this encounter Plan of Treatment Upcoming Encounters Date Type Department Care Team (Late Contact Info) Description 08/06/2024 1:[address] [facility] Radiation Oncology [address] [place] [phone] Micaela Sandhu NP [address] [place] [address] [address] [place] [phone] 08/11/2024 1:30 PM EDT Office Visit [facility] Hematology Oncology [address] [place] [phone] Tawana Chang MD [address] [place] [address] documented as of this encounter Procedures Procedure Name Priority Date/Time Associated Diagnosis Comments RAD ONC MSQ TREATMENT SUMMARY Routine 07/11/2024 1:55 PM EST documented in this encounter Results * Rad Onc Msq Treatment Summary (07/11/2024 1:55 PM EST) Treatment Site Rt lower gum/Bneck MOSAIQ RADIATION ONCOLOGY Course Number 1 MOSAIQ RADIATION ONCOLOGY Prescribed Fractional Dose 200 cGray MOSAIQ RADIATION ONCOLOGY Prescribed Total Dose 6,000 cGray MOSAIQ RADIATION ONCOLOGY Actual Fractions Delivered 30 MOSAIQ RADIATION ONCOLOGY Actual Session Delivered Dose 200 cGray MOSAIQ RADIATION ONCOLOGY Actual Total Dose 6,000 cGray MOSAIQ RADIATION ONCOLOGY Prescribed Technique 3 ARC VMAT MOSAIQ RADIATION ONCOLOGY Elapsed Days 46 MOSAIQ RADIATION ONCOLOGY Start Date 05/26/2024 MOSAIQ RADIATION ONCOLOGY Last Date 07/11/2024 MOSAIQ RADIATION ONCOLOGY Prescribed Number of Fractions 30 MOSAIQ RADIATION ONCOLOGY 07/11/2024 1:55 PM EST Physician Radiation Oncology RADIATION ONCOLO GY ORDERABLES Final Result MOSAIQ RADIATION ONCOLOGY documented in this encounter Visit Diagnoses Not on filedocumented in this encounter Care Teams Chicken Hatchery Helper Relationship Specialty Start Date End Date Brea Maciel MD [address] [place] [address] PCP - General 10/08/23 documented as of this encounter
--- OUTSIDE RECORDS SUMMARY | 2024-07-14 15:20 | XMS_ITS | Encounter Summary ---
Author Organization [facility] Address [address] [place] [address] Care Team Providers Care Pasting Inspector Name Role Phone Laura Hogue APRN Primary Care Provider Apple Villatoro DO Unavailable [phone] Encounter Details Date Type Department Care Team (Late st Contact Info) Description 03/01/2020 Scanned Document [facility] Colorectal Surgery [place] [address] [place] [phone] Laura Hogue APRN [address] [place], [place] [phone] Social History Tobacco Use Types Packs/Day Years [...] documented as of this encounter Care Teams Pasting Inspector Relationship Specialty Start Date End Date Laura Hogue APRN [address] [place] [address] PCP - General Family Medicine 09/04/19 Apple Villatoro DO [address] [place] [address] Boiling House Oiler Cardiovascular Disease 04/12/23 documented as of this encounter
--- OUTSIDE RECORDS SUMMARY | 2024-07-14 15:20 | XMS_ITS | Encounter Summary ---
Author Organization [employer] Address [address] [place] [address] Care Team Providers Care Lumber Piler Operator Name Role Phone Brea Maciel MD Primary Care Provider [phone] Reason for Visit * Reason Comments OTV Nurse discharge Encounter Details Date Type Department Care Team (Latest Contact Info) Description 07/11/2024 1:50 PM EST Hospital Encounter [facility] Radiation Oncology [address] [phone] Leyla Flanagan MD [address] [place] [address] 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) Social History Tobacco Use Types Packs/Day Years [...] Weight 66.1 kg (145 lb 12.8 oz) 07/11/2024 4:32 PM EST Height - - Body Mass Index 25.03 06/12/2024 10:50 AM EST documented in this encounter Progress Notes * Leyla Flanagan MD - 07/11/2024 1:50 PM EST Images from the original note were not included. [address] [phone] Radiation Oncology Treatment Completion Patient Name: Feliciano Coronado Date of : 1955 Attending Physician: Leyla Flanagan MD Diagnosis / Cancer Staging 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) Staging form: Oral Cavity, AJCC 8th Edition - Pathologic: Stage AB (pT4a, pN0, cM0) - Unsigned Diagnosis: Right lower gingiva squamous cell carcinoma, [...] tracheostomy, teeth extractions by Dr. Lu at [facility] Site Summary: VMAT: Head and neck Treatment Period Technique Fraction Dose Fractions Total Dose Course 1 05/26/2024-07/11/2024 (days elapsed: 46) Rt lower gum/Bneck 05/26/2024-07/11/2024 3 ARC VMAT 200 / 200 cGy 30 / 30 6000 / 6,000 cGy Intent: Curative Treatment Description: VMAT / Arc Therapy Concurrent therapy: none, med onc Dr. Chang Treatment Details: Subjective and/or Physical exam: Had feeding tube but was eating orally Weight loss minimal (~ 5 lb) Developed skin reaction in right neck (dry desquamation) Develop oral mucositis and thrush, was prescribed MMW and nystatin Plan/Instructions: cont MMW and nystatin. Use moisturizer on neck. Hold off on getting fitted for any dentures for at least 3 months to allow healing from the RT. Treatment Outcome: Completed as planned Treatment Delay: Went to [facility] ER on 06/12/24 due to concern for infection, per ER note suspicion waslow but pt placed on antibiotic and told to follow up with surgeon. Pt missed RT 06/12 and 06/13. Disease Response to Treatment: Will be assessed at time of follow-up Follow-up: Return to Radiation Oncology in 4 weeks with Micaela Sandhu NP * Micaela Sandhu NP - 07/11/2024 1:50 PM EST INSTRUCCIONS PARA EL ALESHA POSTERIOR A TREATAMENTOS POR RADIACION Los efectos secundarios presentes al final del tratamiento suelen mejorar en unas pocas semanas. Si desarrolla michelle reacci??n en la piel y continua o empeora fransisco 7 - 10 d??as. Contin??e cuidando loya piel. Ser?? m??s sensible a quemaduras poncho; prot??abdiel shirley. Si es necesario utilice protector solar con un m??peter de SPF 30. La sensaci??n de fatiga y debilidad puede continuar por varias semanas. Aseg??rese de descansar correctamente. Organice bang actividades seg??n corresponda. Contin??e con h??bitos alimenticios saludables. Mant??ngase angel hidratado tomando abundante l??quido. Las visitas de seguimiento se programar??n para que loya m??dico en radiaci??n pueda supervisar loya progreso. Por favor dir??abdiel a la recepci??n para programar loya ibis. Por favor comun??quese al [phone] opcion # 2 ante cualquier pregunta o preocupaci??n antes de loya pr??xima visita. * Leyla Flanagan MD - 07/11/2024 1:50 PM EST Radiation Oncology On Treatment Visit Patient Name: Feliciano Landin Coronado Attending Provider: Leyla Flanagan MD Encounter Date: 07/11/2024 DIAGNOSIS: 1. Primary squamous cell carcinoma of [...] tracheostomy, teeth extractions by Dr. Lu at [facility] STAGE: Cancer Staging 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) Staging form: Oral Cavity, AJCC 8th Edition - Pathologic: Stage AB (pT4a, pN0, cM0) - Unsigned Interval/Dose History: VMAT: Head and neck Treatment Period Technique Fraction Dose Fractions Total Dose Course 1 05/26/2024-07/11/2024 (days elapsed: 46) Rt lower gum/Bneck 05/26/2024-07/11/2024 3 ARC VMAT 200 / 200 cGy 30 / 30 6000 / 6,000 cGy TOTAL PLANNED DOSE: 6000 cGy in 30 fractions CONCURRENT THERAPY: none. Pt declined chemo. Med onc Dr. Chang Accompanied by: sister Marisol and two other people. power electronics engineer video #[id number] Subjective: Are you experiencing any fatigue? Yes pt feel that he has not strength Are you experiencing any skin reactions? Yes pt with tanning/erythema to face and neck. Pt reports swelling at the surgical site.Pt using aquaphor and aloe Are you experiencing any phlegm, dryness, taste [...] not eating much. Are you seeing a food service coordinator or speech language pathologist? Yes Does patient have a g-tube? Yes . If so, How many cans per day are you using via g-tube? N/A Any problems with the tube or tube site? No, flushing tube twice daily. Pt reports lip is no longer painful and bleeding . Saw oral surgeon 06/20/24 Dr. Lu. Pt says that he said surgery site looked fine. Has some home services. Pt asking for more help. Physical Exam: There were no vitals filed for this visit. Weight on 05/30/24 on 150 lb. Weight on 07/11/24 145.8 lb General: appears well, no apparent distress; awake [...] neck intact but with mod erythema. Has patch of dry desquamation in mid right neck. Assessment/Plan: He is tolerating treatments well. End of treatment today. I have reviewed CBCT. Patient asking about when he can get dentures. I recommend waiting several months after the RT before trying to get new dentures. Stop Chlorhexidine. Start rinsing with salt/baking soda instead. Instructions given to pt (8 oz water with 1tsp baking soda and 1/2 tsp salt) rinse and spit after meals and before bed. Keep flushing feeding tube. Thread Drawer consulted. Cont MMW for mouth Went to [facility] ER on 06/12/24 due to [...] Nystatin. Skin reaction in neck: cont aquaphor. FU Dr. Chang 08/11/[address] Lu 08/29/24 Pt to contact administrator social welfare Patel about getting more hours of help at home. * Brea Plunkett RN - 07/11/2024 1:50 PM EST Pt seen for nursing discharge with his family. Reviewed written discharge instructions and questions answered. Pt was instructed to make a 4-6 weeks follow up appt upon leaving and to call with any questions or concerns. Pt/family verbalized understanding. documented in this encounter Plan of Treatment Upcoming Encounters Date Type Department Care Team (Late st Contact Info) Description 08/06/2024 1:30 PM EST Appointment [facility] Radiation Oncology [address] [place] [phone] Micaela Sandhu NP [address] [place] [phone] 08/11/2024 1:30 PM EDT Office Visit [facility] Hematology Oncology [address] [place] [phone] Tawana Chang MD [address] [place] [address] documented as of this encounter Visit Diagnoses Diagnosis 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)- Primary documented in this encounter Care Teams Lumber Piler Operator Relationship Specialty Start Date End Date Brea Maciel MD [address] [place] [phone] PCP - General 10/08/23 documented as of this encounter
--- OUTSIDE RECORDS SUMMARY | 2024-07-14 15:20 | XMS_ITS | Encounter Summary ---
Author Organization [employer] Address [address] [place] [address] Care Team Providers Care Television Repairer Name Role Phone Brea Maciel MD Primary Care Provider [phone] Reason for Visit * Reason Onset Date Comments FYI 06/17/2024 Encounter Details Date Type Department Care Team ([facility] st Contact Info) Description 06/17/[address] [facility] [address] [place] [address] Brea Maciel MD [address] [place] [address] Social History Tobacco Use Types Packs/Day Years Used Date Smoking Tobacco: Former Cigarettes 3 15 0 06/04/1973 - 06/04/1988 Passive Smoke Exposure: Current Smokeless Tobacco: Never Alcohol Use Standard Drinks/Week Comments Not Currently 0 (1 standard drink = 0.6 oz pur e alcohol) Depression Answer Date Recorded Patient Health Questionnaire-9 Score 10 01/21/2024 Patient Health Questionnaire-9 Score 10 01/21/2024 Last PHQ-9: Questionnaire Data Not on file 0 01/21/2024 Housing Stability Answer Date Recorded What is your housing situation today? I have joshua riggins 09/12/[address] you li ve. Do you have problems with any of the following? None of the above 09/12/2023 Food Insecurity Answer Date Recorded Within the past 12 months, y ou worried that your food would run out before you got money to buy more: Never True 09/12/2023 Within the past 12 months,th e food you bought just didn't last and you didn't have enough money to get more: Never True 03/2024 Transportation Answer Date Recorded In the past 12 months, has l ack of transportation kept you from medical appts, meetings, work or from getting things needed for daily living? No 09/12/2023 Utilities Answer Date Recorded In the past 12 months, has t he electric, gas, oil or water company threatened to shut off services in your home? No 09/12/2023 Depression Answer Date Recorded Patient Health Questionnaire-2 Score 0 01/21/2024 Sex and Gender Information Value Date Recorded Sex Assigned at Male 07/12/2023 2:18 PM EST Legal Sex Male 3:23 PM EST Gender Identity Male 07/12/2023 2:18 PM EST Sexual Orientation Straight 07/12/2023 2: 18 PM EST Occupation Industry Job Start Date Job End Date Not on file Not on file Not on file Not on file documented as of this encounter Miscellaneous Notes * Telephone Encounter - Tiffany Gray RN - 06/17/2024 12:51 PM EST Left message for return call to office. * Telephone Encounter - Hakeem Walden - 06/17/2024 10:10 AM EST TC from Ayah with [facility] stating would like to get a Verbal Order to see Feliciano for [place] Sessions once a week for sic weeks. Contact Ayah for Verbal Order at [phone] documented in this encounter Plan of Treatment Upcoming Encounters Date Type Department Care Team (Late st Contact Info) Description 08/19/2024 1:15 PM EDT Office Visit [facility] [address] [place] [address] Santosh Walker MD [address] [place] [address] documented as of this encounter Visit Diagnoses Not on filedocumented in this encounter Additional Health Concerns Assessment Noted Time PHQ-9 Depression Total Score: 10 024 11:21 AM EDT documented as of this encounter Care Teams Television Repairer Relationship Specialty Start Date End Date Brea Maciel MD [address] [place] [address] PCP - General Family Medicine 09/21/23 documented as of this encounter
--- OUTSIDE RECORDS SUMMARY | 2024-07-14 15:20 | XMS_ITS | Clinical Summary ---
Author Organization [facility] Address [address] [place] [address] Care Team Providers Care Electronics Engineering Professor Name Role Phone Charis Liz Primary Care Provider [phone] William Kaplan MD Unavailable Allergies Active Allergy [...] Information: ?Site ID: [id number] ?Name: [facility] ?Address: [address] [place] [address] ?Director: Roly Huerta M.D.,PhD us Robert Martinez MD [facility] Lin l Result [facility] , [place] from Last 3 Months or Most Recently Relevant to Health Maintenance Insurance [address] [place] [address] MEDICAID [id number]IC[place] PART A & B Care Teams Electronics Engineering Professor Relationship Specialty Start Date End Date Charis Liz PA [address] [place] [address] PCP - General Internal Medicine 12/11/18 William Kaplan MD [address] [place] [address] PCP - Insurance Payer PCP 02/02/23
--- OUTSIDE RECORDS SUMMARY | 2024-07-14 15:20 | XMS_ITS ---
Author Organization [employer] enter Address [address] [place] [id number] Care Team Providers Care Senior Housekeeper Name Role Phone Laura Hogue Primary Care Provider [phone] REASON FOR VISIT Mail returned Social History Sex Assigned At : Social History Observation Description Sex Assigned At Male Encounters Encounter Location Date Provider Diagnosis 21-Internal Medicine [address] [place] [id number] 05/17/2023 Laura Hogue Plan Of Treatment No Information Progress Notes * Feliciano ORTIZ MDOB: 1955 (68 yo M)Acc No.[id number]:05/17/2023 Patient:?Steven ORTIZ :1955???Age:68 Y???Sex:Male Address:[address] [place] [address] , [address], [place], [address] * true * Date:? Generated for Enricoi margy/Kanwal/eTransmitting on:?07/14/2024 03:20 PM EST
--- OUTSIDE RECORDS SUMMARY | 2024-07-14 15:20 | XMS_ITS | Clinical Summary ---
Author Organization [facility] Address [address] [place] [address] Care Team Providers Care Staff Assistant Name Role Phone LennieLoriefrances ESTRADA Primary Care Provider [phone] Apple Villatoro DO Unavailable [phone] Allergies Active Allergy Reactions Criticality Noted [...] See Admin Instructions. Active Continuous Blood Gluc Canning Machine Operator (FreeStyle Marlen 2 Webster) Device 1 PER YEAR Active Continuous Blood Gluc Sensor (FreeStyle Marlen 2 Sensor) [facility] [place] Instructions. 10/28/2021 [...] Comprehensive Metabolic Panel (02/28/2023 1:22 PM EDT) [facility] Signature Glucose 409(HH) 65 - 99 mg/dL 02/28/2023 2:17 PM EDT [facility] Comment:Fasting: <100 mg/dL, Non-Fasting: <200 mg/dL (ADA 2005) Blood Urea Nitrogen (BUN) 42(H) 8 - 21 mg/dL 02/28/2023 2:17 PM [facility] Creatinine 1.5(H) 0.5 - 1.3 mg/dL 02/28/2023 2:17 PM [facility] eGFR 51(L) >59 02/28/2023 2:17 PM [facility] Comment:CKD-EPI (2020) in mL /min/1.73 sq meters. Sodium 133(L) 136 - 145 mmol/L 02/28/2023 2:17 PM [facility] Potassium 3.7 3.4 - 5.3 mmol/L 02/28/2023 2:17 PM [facility] Chloride 95(L) 98 - 107 mmol/L 02/28/2023 2:17 PM [facility] CO2 25 22 - 33 mmol/L 02/28/2023 2:17 PM [facility] Calcium 9.7 8.7 - 10.5 mg/dL 02/28/2023 2:17 PM [facility] Alkaline Phosphatase 105 45 - 128 U/L 02/28/2023 2:17 PM [facility] Aspartate Aminotrans (AST) 40 10 - 55 U/L 02/28/2023 2:17 PM [facility] Alanine Aminotrans (ALT) 59(H) 10 - 55 U/L 02/28/2023 2:17 PM [facility] Bilirubin, Total 0.5 0.2 - 1.0 mg/dL 02/28/2023 2:17 PM [facility] Protein, Total 7.7 6.3 - 8.3 g/dL 02/28/2023 2:17 PM [facility] Albumin 4.2 3.4 - 4.8 g/dL 02/28/2023 2:17 PM [facility] BUN/Creatinine Ratio 28(H) 10.0 - 25.0 Ratio 02/28/2023 2:17 PM [facility] Globulin 3.5 1.5 - 3.9 g/dL 02/28/2023 2:17 PM [facility] Albumin/Globulin Ratio 1.2 1.0 - 3.0 Ratio 02/28/2023 2:17 PM [facility] Anion Gap 13 7 - 17 02/28/2023 2:17 PM [facility] Blood specimen (specimen) (Plasma/Serum) 02/28/2023 1:22 PM EDT 02/28/2023 1:48 PM EDT [facility] See Below [facility] [address] [place] [address] * POCT Microalbumin (02/12/2023 10:37 AM EDT) Microalbumin, POC 10.0 MG/L Creatinine Urine, POC 100.0 MG/DL Microalbumin/Cr eat Ratio, POC <30 MG/G Lot Number [id number] Relations Liaison Pass Pass Urine 02/12/2023 10:3 7 AM [...] borderline splenomegaly. 4. ??Status post prostatectomy. Artis oRss M.D. Resident Physician I personally reviewed the [...] report as now presented. Jennifer Monterroso MD [facility] [place] ORDERABLES * Lipid Panel (AM) (03/06/2018 [...] Decision Thoroughly Discussed with: Patient Care Teams Staff Assistant Relationship Specialty Start Date End Date Laura Hogue APRN [address] [place] [address] PCP - General Family Medicine 09/04/19 Apple Villatoro DO [address] [place] [id number] Order Fulfillment Specialist Cardiovascular Disease 04/12/23
--- OUTSIDE RECORDS SUMMARY | 2024-07-14 15:20 | XMS_ITS | Encounter Summary ---
Author Organization [employer] Address [address] [place] [address] Care Team Providers Care Objective C Developer Name Role Phone Brea Maciel MD Primary Care Provider [phone] Reason for Visit * Reason Comments Pre-visit Planning SDOH positive, Tobac co screening negative. Encounter Details Date Type Department Care Team ([facility] st Contact Info) Description 07/02/[address] [facility] [address], [place] [phone] Brea Maciel MD [address] [place] [address] Pre-visit Planning (SDOH positive, Tobacco screening negative.) Social History Tobacco Use Types Packs/Day Years [...] before you got money to buy more: Sometimes True 2024 Within the past 12 months,th e food you bought just didn't last and you didn't have enough money to get more: Sometimes True 07/02/2024 Transportation Answer Date Recorded In the past [...] Recorded Patient Health Questionnaire-2 Score 0 01/21/2024 Internet Access Answer Date Recorded Internet Access Q1 Yes 07/02/2024 Internet Access Q2 Not on file 07/02/2024 Sex and Gender Information Value Date Recorded [...] as of this encounter Progress Notes * Lise Morrison - 07/02/2024 10:49 AM EST CC Lise Mendes placed successful outbound call to patient for pre-visit planning. Patient name and confirmed. Patient confirms appt date and time, and has transportation arrangements. Biggest concern for appointment at this time is no concerns. Appropriate screenings completed in anticipation ofappointment. SDOH positive, patient needs assistance with food insecurities. Tobacco screening negative. documented in this encounter Plan of Treatment Upcoming Encounters Date Type Department Care Team (Late st Contact Info) Description 08/19/2024 1:15 PM EDT Office Visit [facility] [address], [place] [phone] Santosh Walker MD [address] [place] [address] documented as of this encounter Visit Diagnoses Not on filedocumented in this encounter Additional Health Concerns Assessment Noted Time PHQ-9 Depression Total Score: 10 024 11:21 AM EDT documented as of this encounter Care Teams Objective C Developer Relationship Specialty Start Date End Date Brea Maciel MD [address] [place] [address] PCP - General Family Medicine 09/21/23 documented as of this encounter
--- OUTSIDE RECORDS SUMMARY | 2024-07-14 15:20 | XMS_ITS | Encounter Summary ---
Author Organization [facility] Address [address] [place] [address] Care Team Providers Care Process Consultant Name Role Phone Jaylene Kong MD Primary Care Provider [phone] Charis Liz PA-C Primary Care Provider [phone] Laura Hogue APRN Primary Care Provider [phone] Apple Villatoro DO Unavailable [phone] Encounter Details Date Type Department Care Team (Late st Contact Info) Description 11/25/2015 Scanned Document [address] [phone] Provider, Generic Social History Tobacco Use Types Packs/Day Years Used Date Smoking Tobacco: Former Cigarettes Q uit: 11/24/1985 Alcohol Use Standard Drinks/Week Comments No 0 [...] Infection Onset Date Last Indicated Resolved Time R/O COVID-19 ([facility]) Comment:08/26/2019- (+) 08/27/2019 08/27/2019 08/28/2019 7:09 P M EDT COVID-19 Comment:(+) test 08/26/2019, resulted 08/28/2019 08/28/2019 08/28/2019 03/01/2023 7:39 AM E DT documented as of this encounter Care Teams Process Consultant Relationship Specialty Start Date End Date Jaylene Kong MD [address] [place] [address] PCP - General Internal Medicine 09/28/15 04/04/17 Charis Liz PA-C [address] [place] [address] PCP - General 04/05/17 09/03/19 Laura Hogue APRN [address] [place] [address] PCP - General Family Medicine 09/04/19 Apple Villatoro DO [address] [place] [id number] Weigh Machine Operator Cardiovascular Disease 04/12/23 documented as of this encounter
--- OUTSIDE RECORDS SUMMARY | 2024-07-14 15:21 | XMS_ITS | Clinical Summary ---
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 Active amLODIPine (NORVASC) 10 mg tablet Take 1 tablet (10 mg total) by mouth daily. 6 Active aspirin 81 mg chewable tablet Chew 1 tablet (81 mg total) daily. 4 Active atorvastatin (LIPITOR) 10 mg tablet Take 1 tablet (10 mg total) by mouth daily. 8 Active insulin glargine (LANTUS SoloStar) 100 unit/mL (3 mL) injection pen Inject 24 Units under the skin daily. 6 Active insulin lispro 100 unit/mL injection Inject 0-20 Units under the skin 5 times daily. 4 Active levothyroxine (SYNTHROID, LEVOTHROID) 50 mcg tablet Take 1 tablet (50 mcg total) by mouth daily. 6 Active omeprazole (PriLOSEC) [address] capsule Take 1 capsule (20 mg total) by mouth daily. 4 Active sertraline (ZOLOFT) 100 mg tablet Take 1 tablet (100 mg total) by mouth daily. 6 Active acetaminophen (TYLENOL) 325 mg tablet Take 3 tablets (975 mg total) by mouth every 6 hours as needed. 4 Active Alcohol Prep Pads pads, medicated USE 2 PADS FOUR TIMES DAILY 4 Active betamethasone valerate (VALISONE) 0.1 % ointment APPLY TOPICALLY TO THE AFFECTED AREA(S) TWICE DAILY IN THE MORNING AND AT BEDTIME DIRECTED Active blood pressure test kit-large kit USE TO CHECK BLOOD PRESSURE ONCE DAILY IN THE MORNING DIRECTED 4 Active blood sugar diagnostic (FreeStyle Lite Strips) test strip USE TO TEST BLOOD SUGAR FOUR TIMES DAILY 4 Active FreeStyle Lite Meter monitoring kit 4 Active chlorhexidine (PERIDEX) 0.12 % solution Use 15 mL in the mouth or throat 4 times daily. 4 Active BD Madeleine 2nd Gen Pen Needle 32 gauge x 5/32 needle use to inject insulin Active BD Ultra-Fine Mini Pen Needle 31 gauge x 3/16 needle USE WITH LANTUS UNDER THE SKIN DAILY 4 Active secukinumab (Cosentyx Pen) 150 mg/mL pen injector 3 Active traZODone (DESYREL) 50 mg tablet Take by mouth at bedtime. Active cholecalciferol (VITAMIN D-3) 50 mcg (2,000 unit) capsule Take 50 mcg by mouth daily. 4 Active doxepin (SINEquan) 10 mg capsule Take 1 capsule (10 mg total) by mouth. at bedtime Active diphenhydrAMINE 12.5 mg/5 mL elixir 50 mg, aluminum-magnes ium hydroxide-simet hicone 400-400-40 mg/5 mL suspension 20 mL, lidocaine 2 % solution 20 mL Swish and spit 5 mL every 3 (three) hours if needed for mucositis for up to 116 doses. 5-10 mLs every 3 hours. 580 each 2 5 Active amoxicillin-cla vulanate (AUGMENTIN) 600-42.9 mg/5 mL suspension Take 7.3 mL (875 mg total) by mouth 2 (two) times a day for 10 days. 146 mL 5 06/22/19 25 saccharomyces boulardii (FLORASTOR) 250 mg capsule Take 1 capsule (250 mg total) by mouth 2 (two) times a day for 7 days. 14 capsule 5 06/19/19 25 oxyCODONE (OXY-IR) 5 mg immediate release capsule Take 1 capsule (5 mg total) by mouth every 6 (six) hours if needed for severe pain for up to 3 days. Max Daily Amount: 20 mg 12 capsule 5 06/15/19 25 nystatin (MYCOSTATIN) 100,000 unit/mL suspension Take 5 mL by mouth 4 (four) times a day for 14 days. Swish and swallow. 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 M smoker with a [id number] moderately differentiated SCC of the R mandibular [...] within accepted guidelines, and the oncologist in [place] might not give exactly the same recommendation [...] Encounters Date Type Department Care Team Description 07/11/2024 1:50 PM EST Hospital Encounter [facility] Radiation Oncology [address] [place] [phone] Leyla Flanagan MD 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) 07/11/2024 1:12 PM EST Hospital Encounter [facility] Radiation Oncology [address] [place] [phone] 07/10/2024 11:10 AM EST - 07/10/2024 11:59 PM EST Hospital Encounter [facility] Radiation Oncology [address] [place] [phone] Discharge Disposition: Home or Self Care 07/09/2024 1:22 PM EST - 07/09/2024 11:59 PM EST Hospital Encounter [facility] Radiation Oncology [address] [place] [phone] Discharge Disposition: Home or Self Care 07/08/2024 1:09 PM EST - 07/08/2024 11:59 PM EST Hospital Encounter [facility] Radiation Oncology [address] [place] [phone] Discharge Disposition: Home or Self Care 07/08/2024 [facility] Radiation Oncology [address] [place] [phone] Brea Plunkett RN 07/07/2024 12:53 PM EST - 07/07/2024 11:59 PM EST Hospital Encounter [facility] Radiation Oncology [address] [place] [phone] Discharge Disposition: Home or Self Care 07/04/2024 1:50 PM EST - 07/04/2024 11:59 PM EST Hospital Encounter [facility] Radiation Oncology [address] [place] [phone] Leyla Flanagan MD 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) Discharge Disposition: Home or Self Care 07/04/2024 1:00 PM EST - 07/04/2024 11:59 PM EST Hospital Encounter [facility] Radiation Oncology [address] [place] [phone] Discharge Disposition: Home or Self Care 07/03/2024 12:51 PM EST - 07/03/2024 11:59 PM EST Hospital Encounter [facility] Radiation Oncology [address] [place] [phone] Discharge Disposition: Home or Self Care 07/02/2024 1:08 PM EST - 07/02/2024 11:59 PM EST Hospital Encounter [facility] Radiation Oncology [address] [place] [phone] Discharge Disposition: Home or Self Care 07/01/2024 1:07 PM EST - 07/01/2024 11:59 PM EST Hospital Encounter [facility] Radiation Oncology [address] [place] [phone] Discharge Disposition: Home or Self Care 06/30/2024 1:26 PM EST - 06/30/2024 11:59 PM EST Hospital Encounter [facility] Radiation Oncology [address] [place] [phone] Lázaro Campuzano MD Head and neck cancer ([facility]/HCC) (Primary Dx) Discharge Disposition: Home or Self Care 06/30/2024 12:41 PM EST - 06/30/2024 11:59 PM EST Hospital Encounter [facility] Radiation Oncology [address] [place] [phone] Discharge Disposition: Home or Self Care 06/27/2024 1:24 PM EST - 06/27/2024 11:59 PM EST Hospital Encounter [facility] Radiation Oncology [address] [place] [phone] Leyla Flanagan MD Primary squamous cell carcinoma of lower gingiva ([facility]/HCC) (Primary Dx) Discharge Disposition: Home or Self Care 06/27/2024 1:06 PM EST - 06/27/2024 11:59 PM EST Hospital Encounter [facility] Radiation Oncology [address] [place] [phone] Discharge Disposition: Home or Self Care 06/26/2024 1:00 PM EST - 06/26/2024 11:59 PM EST Hospital Encounter [facility] Radiation Oncology [address] [place] [phone] Discharge Disposition: Home or Self Care 06/25/2024 1:03 PM EST - 06/25/2024 11:59 PM EST Hospital Encounter [facility] Radiation Oncology [address] [place] [phone] Discharge Disposition: Home or Self Care 06/24/2024 1:05 PM EST - 06/24/2024 11:59 PM EST Hospital Encounter [facility] Radiation Oncology [address] [place] [phone] Discharge Disposition: Home or Self Care 06/23/2024 1:12 PM EST - 06/23/2024 11:59 PM EST Hospital Encounter [facility] Radiation Oncology [address] [place] [phone] Discharge Disposition: Home or Self Care 06/19/2024 12:41 PM EST - 06/19/2024 11:59 PM EST Hospital Encounter [facility] Radiation Oncology [address] [place] [phone] Discharge Disposition: Home or Self Care 06/18/2024 12:23 PM EST - 06/18/2024 11:59 PM EST Hospital Encounter [facility] Radiation Oncology [address] [place] [phone] Discharge Disposition: Home or Self Care 06/17/2024 1:26 PM EST - 06/17/2024 11:59 PM EST Hospital Encounter [facility] Radiation Oncology [address] [place] [phone] Leyla Flanagan MD 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) Discharge Disposition: Home or Self Care 06/17/2024 12:41 PM EST - 06/17/2024 11:59 PM EST Hospital Encounter [facility] Radiation Oncology [address] [place] [phone] Discharge Disposition: Home or Self Care 06/16/2024 12:40 PM EST - 06/16/2024 11:59 PM EST Hospital Encounter [facility] Radiation Oncology [address] [place] [phone] Discharge Disposition: Home or Self Care 06/16/2024 Telephone [facility] Radiation Oncology [address] [place] [phone] Micaela Sandhu NP 06/13/2024 Telephone [facility] Radiation Oncology [address] [place] [phone] Leyla Flanagan MD 06/12/2024 11:49 AM EST - 06/12/2024 8:11 PM EST Emergency [facility] Emergency [address] [place] [phone] Clem Merrill MD Right facial swelling (Primary Dx); Radiation adverse effect, initial encounter Discharge Disposition: Home or Self Care 06/11/2024 12:36 PM EST - 06/11/2024 11:59 PM EST Hospital Encounter [facility] Radiation Oncology [address] [place] [phone] Discharge Disposition: Home or Self Care 06/10/2024 12:49 PM EST - 06/10/2024 11:59 PM EST Hospital Encounter [facility] Radiation Oncology [address] [place] [phone] Discharge Disposition: Home or Self Care 06/09/2024 12:47 PM EST - 06/09/2024 11:59 PM EST Hospital Encounter [facility] Radiation Oncology [address] [place] [phone] Discharge Disposition: Home or Self Care 06/06/2024 1:50 PM EST - 06/06/2024 11:59 PM EST Hospital Encounter [facility] Radiation Oncology [address] [place] [phone] Leyla Flanagan MD 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) Discharge Disposition: Home or Self Care 06/06/2024 12:37 PM EST - 06/06/2024 11:59 PM EST Hospital Encounter [facility] Radiation Oncology [address] [place] [phone] Discharge Disposition: Home or Self Care 06/05/2024 1:04 PM EST - 06/05/2024 11:59 PM EST Hospital Encounter [facility] Radiation Oncology [address] [place] [phone] Discharge Disposition: Home or Self Care 06/03/2024 12:51 PM EST - 06/03/2024 11:59 PM EST Hospital Encounter [facility] Radiation Oncology [address] [place] [phone] Discharge Disposition: Home or Self Care 06/02/2024 12:32 PM EST - 06/02/2024 11:59 PM EST Hospital Encounter [facility] Radiation Oncology [address] [place] [phone] Discharge Disposition: Home or Self Care 05/30/2024 1:28 PM EST - 05/30/2024 11:59 PM EST Hospital Encounter [facility] Radiation Oncology [address] [place] [phone] Micha Wong MD 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) Discharge Disposition: Home or Self Care 05/26/2024 1:06 PM EST - 05/26/2024 11:59 PM EST Hospital Encounter [facility] Radiation Oncology [address] [place] [phone] Discharge Disposition: Home or Self Care 05/23/2024 12:45 PM EST - 05/23/2024 11:59 PM EST Hospital Encounter [facility] Radiation Oncology [address] [place] [phone] Leyla Flanagan MD 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) Discharge Disposition: Home or Self Care 05/23/2024 12:13 PM EST - 05/23/2024 11:59 PM EST Hospital Encounter [facility] Radiation Oncology [address] [place] [phone] Leyla Flanagan MD Discharge Disposition: Home or Self Care 05/22/2024 7:57 AM EST - 05/22/2024 11:59 PM EST Hospital Encounter [facility] Radiation Oncology [address] [place] [phone] Discharge Disposition: Home or Self Care 05/21/2024 Telephone [facility] Radiation Oncology [address] [place] [phone] Rose Mary Holland RN 05/08/2024 9:00 AM EST - 05/08/2024 11:59 PM EST Hospital Encounter [facility] Radiation Oncology [address] [phone] Leyla Flanagan MD 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) Discharge Disposition: Home or Self Care 05/08/2024 8:15 AM EST - 05/08/2024 11:59 PM EST Hospital Encounter [facility] Radiation Oncology [address] [place] [phone] 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) Discharge Disposition: Home or Self Care 05/07/2024 1:45 PM EST Office Visit [facility] Hematology Oncology [address] [place] [phone] Tawana Chang MD 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) 05/06/2024 9:28 AM EST - 05/06/2024 11:59 PM EST Hospital Encounter [facility] CT Scan [address] [place] [phone] 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) Discharge Disposition: Home or Self Care 04/24/2024 1:45 PM EST - 04/24/2024 11:59 PM EST Hospital Encounter [facility] Radiation Oncology [address] [place] [phone] Leyla Flanagan MD 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); Head and neck cancer (CMS/HCC) Discharge Disposition: Home or Self Care 04/24/2024 1:44 PM EST - 04/24/2024 11:59 PM EST Hospital Encounter [facility] Radiation Oncology [address] [place] [phone] Discharge Disposition: Home or Self Care 04/17/2024 2:00 PM EST Office Visit [facility] Hematology Oncology [address] [place] [phone] Tawana Chang MD Oral cancer (CMS/HCC) 04/14/2024 Telephone [facility] Hematology Oncology [address] [place] [phone] Michael Starks MA Referred to RD from [...] History Date Comments Hypertension DX:Hypertension Diabetes mellitus ([facility]) DX:D iabetes mellitus ([facility]) Obstructive sleep apnea syndrome 08/18/2015 DX:Obstructive sleep apnea syndrome Arthritis DX:Arthritis Depression DX:Depression Chronic kidney disease DX:Chroni c kidney disease Prostate cancer ([facility]) DX:Pro state cancer ([facility]) Primary insomnia 04/16/2024 Family History Medical History [...] EST Inhaled Oxygen Concentration - - Weight 66.1 kg (145 lb 12.8 oz) 07/11/2024 4:32 PM EST Height 162.6 cm (5' 4 ) 06/12/2024 10:5 0 AM EST Body Mass Index 25.03 06/12/2024 10:50 AM EST Plan of Treatment Upcoming Encounters Date Type Department Care Team (Late st Contact Info) Description 08/06/2024 1:30 PM EST Appointment [facility] Radiation Oncology [address] [phone] iMcaela Sandhu NP [address] [place] [address] [address] [place] [phone] 08/11/2024 1:30 PM EDT Office Visit [facility] Hematology Oncology [address] [place] [phone] Tawana Chang MD [address] [place] [address] Health Maintenance Due Date Last Done Comments COVID-19 Vaccine (#1) 02/06/1961 Diabetes: Annual Foot Exam 02/06/1966 Diabetes: Annual Retina Eye Exam 02/06/1966 Zoster Vaccines (1 of 2) 02/06/1975 RSV Immunization Patients 60+ Years Old (1 - Risk 60-74 years 1-dose series) 2016 DTaP,Tdap,and Td Vaccines (3 - Td or Tdap) 02/17/2022 08/17/2021, 03/05/2018 Abdominal Aortic Aneurysm (AAA) Screen 05/03/2022 Colorectal [...] Cholesterol Screening (Lipid Panel) 09/23/2028 09/24/2023, 03/06/2018 Hepatitis C Screening Completed 09/24/2023 Hepatitis A Vaccines Aged Out 10/05/2023 No long er eligible based on patient's age to complete this topic Pneumococcal Vaccine: 50+ Years Completed 10/05/2023 HIB Vaccines Aged Out [...] patient's age to complete this topic Meningococcal B Vacine Aged Out No lo nger eligible based on patient's age to complete this topic RSV Immunization Patients Under 20 months Aged Out No longer eligible based on patient's age to complete this topic Varicella Vaccines Aged Out No longer eligible based on patient's age to complete this topic Procedures Procedure Name Priority Date/Time Associated Diagnosis Comments RAD ONC MSQ TREATMENT SUMMARY Routine 07/11/2024 1:55 PM EST RAD ONC MSQ TREATMENT SUMMARY Routine 07/10/2024 [...] 1:55 PM EST Physician Radiation Oncology RADIATION ONCOJHAN GY ORDERABLES Final Result [facility] RADIATION ONCOLOGY * Rad Onc Msq Treatment Summary (07/10/2024 [...] 12:0 3 PM EST Physician Radiation Oncology RADIATION ONCJOHAN GY ORDERABLES Final Result [facility] RADIATION ONCOLOGY * Rad Onc Msq [...] 07/09/2024 1:45 PM EST Physician Radiation Oncology RADIATION ONCJOHAN GY ORDERABLES Final Result [facility] RADIATION ONCOLOGY * Rad Onc Msq [...] 07/08/2024 1:20 PM EST Physician Radiation Oncology RADIATION ONCJOHAN GY ORDERABLES Final Result [facility] RADIATION ONCOLOGY * Rad Onc Msq [...] 07/07/2024 1:36 PM EST Physician Radiation Oncology RADIATION ONCOLO GY ORDERABLES Final Result [facility] RADIATION ONCOLOGY * Rad Onc Msq [...] 07/04/2024 2:07 PM EST Physician Radiation Oncology RADIATION ONCOLO GY ORDERABLES Final Result [facility] RADIATION ONCOLOGY * Rad Onc Msq [...] 07/03/2024 1:49 PM EST Physician Radiation Oncology RADIATION ONCOLO GY ORDERABLES Final Result [facility] RADIATION ONCOLOGY * Rad Onc Msq [...] 07/02/2024 1:32 PM EST Physician Radiation Oncology RADIATION ONCOLO GY ORDERABLES Final Result Performing Organization Address City/[facility]/ZIP Co de Phone Number [facility] RADIATION ONCOLOGY [...] 07/01/2024 2:05 PM EST Physician Radiation Oncology RADIATION ONCOLO GY ORDERABLES Final Result [facility] RADIATION ONCOLOGY * Rad Onc Msq [...] 06/30/2024 1:20 PM EST Physician Radiation Oncology RADIATION ONCJOHAN GY ORDERABLES Final Result [facility] RADIATION ONCOLOGY * Rad Onc Msq [...] 06/27/2024 1:24 PM EST Physician Radiation Oncology RADIATION ONCJOHAN GY ORDERABLES Final Result [facility] RADIATION ONCOLOGY * Rad Onc Msq [...] 06/26/2024 1:31 PM EST Physician Radiation Oncology RADIATION ONCJOHAN GY ORDERABLES Final Result [facility] RADIATION ONCOLOGY * Rad Onc Msq [...] 06/25/2024 2:02 PM EST Physician Radiation Oncology RADIATION MELANIE GY ORDERABLES Final Result [facility] RADIATION ONCOLOGY * Rad Onc Msq [...] 06/24/2024 1:58 PM EST Physician Radiation Oncology RADIATION ONCOLO GY ORDERABLES Final Result [facility] RADIATION ONCOLOGY * Rad Onc Msq [...] 06/23/2024 1:35 PM EST Physician Radiation Oncology RADIATION ONCOLO GY ORDERABLES Final Result [facility] RADIATION ONCOLOGY * Rad Onc Msq [...] 06/19/2024 1:25 PM EST Physician Radiation Oncology RADIATION ONCOLO GY ORDERABLES Final Result [facility] RADIATION ONCOLOGY * Rad Onc Msq [...] 06/18/2024 1:25 PM EST Physician Radiation Oncology RADIATION ONCOLO GY ORDERABLES Final Result Performing Organization Address City/[facility] Co de Phone Number [facility] RADIATION ONCOLOGY [...] of Fractions 30 [facility] RADIATION ONCOLOGY 06/17/2024 1:2 6 PM EST Physician Radiation Oncology RADIATION ONCOLO GY ORDERABLES Final Result [facility] RADIATION ONCOLOGY * Rad Onc Msq [...] [facility] RADIATION ONCOLOGY 06/16/2024 1:26 PM EST us Physician Radiation Oncology MD RADIATION ONCOLO GY ORDERABLES Final Result [facility] RADIATION ONCOLOGY * CT Neck Soft [...] Signed Date: 06/12/2024 16:45 ET Workstation ID: [id number] Transcribed By: Self Edit Transcribed Date: 06/12/2024 16:38 ET Narrative 06/12/2024 4:45 PM EST INDICATION: 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 Scanner: [employer] 64 slice VCT Dose reduction technique: ASIR [...] 90 cc Isovue-370 administeredintravenously without incident. Scanner: [employer] 64 slice VCT Dose reduction technique: ASIR [...] Signed Date: 06/12/2024 16:45 ET Workstation ID: [id number] Transcribed By: Self Edit Transcribed Date: 06/12/2024 16:38 ET us Clem Merrill MD IMG CT PROCEDURES Final Result * Blood culture (06/12/2024 3:39 PM EST) [facility] Culture, Blood No growth at 5 days 06/17/2024 5:01 PM EST [facility] Blood Venous blood specimen / Unknown Venipuncture / Unknown 06/12/2024 3:39 PM EST 06/12/2024 3:49 PM EST us Clem Merrill MD LAB MICROBIOLOGY - GENERAL ORDE RABLES Final Result Performing Organization Address [facility]/ZIP Co de Phone Number [facility] [address] [place] [address], [place] [phone] * Lactate (06/12/2024 3:39 PM EST) [facility] Lactate 0.9 0.4 - 2.0 mmol/L LAB CHEMISTRY METHOD 06/12/2024 4:23 PM EST [facility] Blood Venous blood specimen / Unknown Venipuncture / Unknown 06/12/2024 3:39 PM EST 06/12/2024 3:50 PM EST us Clem Merrill MD LAB BLOOD ORDERABLES Final Resu lt Performing Organization Address City/[facility]/ZIP Co de Phone Number [facility] [address] [place] [address], [place] [phone] * (ABNORMAL) CBC auto differential (06/12/2024 10:58 AM EST) [facility] WBC 6.8 4.8 - 10.8 K/[facility] HEMETOLOGY METHOD 06/12/2024 11:19 AM EST [facility] RBC 5.80(H) 4.50 - 5.50 M/[facility] HEMETOLOGY METHOD 06/12/2024 11:19 AM [facility] Hemoglobin 12.8(L) 13.5 - 17.5 g/dL [...] 11:19 AM [facility] Eosinophils Absolute 0.21 0.00 - 0.50 [...] 10:58 AM EST 06/12/2024 11:10 AM EST us Clem B Garfield [facility] LAB BLOOD ORDERABLES Final Resu lt [facility] [address] [place] [address], [place] [phone] * (ABNORMAL) Basic metabolic panel (06/12/2024 10:58 [...] EST Clem Merrill MD LAB BLOOD ORDERABLES Final Resu lt LISETH KEEN [place] ([facility]) [facility] [address] [place] [address], [place] [phone] * Rad Onc Msq Treatment Summary (06/11/2024 [...] 06/11/2024 1:27 PM EST Physician Radiation Oncology RADIATION ONCJOHAN GY ORDERABLES Final Result [facility] RADIATION ONCOLOGY * Rad Onc Msq [...] 06/10/2024 1:42 PM EST Physician Radiation Oncology RADIATION ONCOLO GY ORDERABLES Final Result [facility] RADIATION ONCOLOGY * Rad Onc Msq [...] 06/09/2024 1:36 PM EST Physician Radiation Oncology RADIATION ONCOLO GY ORDERABLES Final Result Performing Organization Address City/[facility]/ZIP Co de Phone Number [facility] RADIATION ONCOLOGY [...] 06/06/2024 2:05 PM EST Physician Radiation Oncology RADIATION ONCOLO GY ORDERABLES Final Result [facility] RADIATION ONCOLOGY * Rad Onc Msq [...] 06/05/2024 1:24 PM EST Physician Radiation Oncology RADIATION ONCJOHAN GY ORDERABLES Final Result [facility] RADIATION ONCOLOGY * Rad Onc Msq Treatment Summary (06/02/2024 1:50 PM EST) Pathologist [facility] Treatment Site Rt lower gum/Bneck [facility] RADIATION [...] 06/02/2024 1:50 PM EST Physician Radiation Oncology RADIATION ONCOLO GY ORDERABLES Final Result [facility] RADIATION ONCOLOGY * Rad Onc Msq [...] 05/30/2024 1:28 PM EST Physician Radiation Oncology RADIATION ONCJOHAN GY ORDERABLES Final Result [facility] RADIATION ONCOLOGY * Rad Onc Msq [...] 05/29/2024 2:04 PM EST Physician Radiation Oncology RADIATION ONCJOHAN GY ORDERABLES Final Result MOSAIQ RADIATION ONCOLOGY * Rad Onc Msq [...] 05/27/2024 1:36 PM EST Physician Radiation Oncology RADIATION ONCOLO GY ORDERABLES Final Result MOSAIQ RADIATION ONCOLOGY * Rad Onc Msq [...] 05/26/2024 1:58 PM EST Physician Radiation Oncology RADIATION ONCOLO GY ORDERABLES Final Result MOS[facility]Q RADIATION ONCOLOGY from Last 3 Months Insurance [employer] MEDICARE Member Subscriber Plan / Payer (Ef fective 2019-Present) Name:Feliciano Santana Relation to Subscriber:Self Name:Feliciano Santana Payer ID:[id number] Group ID:[id number] Type:Not on file Address: [place] [address] [address] [address] 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
--- OUTSIDE RECORDS SUMMARY | 2024-07-14 15:21 | XMS_ITS | Encounter Summary ---
Author Organization [employer] Address [address] [place] [address] Care Team Providers Care Guide Setter Name Role Phone Brea Maciel MD Primary Care Provider [phone] Encounter Details Date Type Department Care Team (Latest Contact Info) Description 07/09/2024 1:22 PM EST - 07/09/2024 11:59 PM EST Hospital Encounter [facility] Radiation Oncology [address] [phone] Discharge Disposition: Home or Self Care Social [...] this encounter Medications at Time of Discharge acetaminophen (TYLENOL) 325 mg tablet Take 3 [...] diphenhydrAMINE 12.5 mg/5 mL elixir 50 mg, aluminum-magnesi um hydroxide-simeth icone 400-400-40 mg/5 mL suspension 20 mL, lidocaine [...] mg tablet Take by mouth at bedtime. nystatin (MYCOSTATIN) 100,000 unit/mL suspension Take 5 mL by mouth 4 (four) times a day for 14 days. Swish and swallow. Do not eat or drink for 30 min afterwards 280 mL 06/27/2024 documented as of this encounter Discharge Disposition Disposition Code Departure Means Destination Home or Self Care documented in this encounter Plan of Treatment Upcoming Encounters Date Type Department Care Team (Late st Contact Info) Description 08/06/2024 1:30 PM EST Appointment [facility] Radiation Oncology [address] [place] [phone] Micaela Sandhu NP [address] [place] [address] [place] [phone] 08/11/2024 1:30 PM EDT Office Visit [facility] Hematology Oncology [address] [place] [phone] Tawana Chang MD 271 [place] [address] documented as of this encounter Procedures Procedure [...] 1:45 PM EST Physician Radiation Oncology RADIATION ONCOLO GY ORDERABLES Final Result MOSAIQ RADIATION ONCOLOGY documented in this encounter Visit Diagnoses Not on filedocumented in this encounter Care Teams Guide Setter Relationship Specialty Start Date End Date Brea Maciel MD [address] [place] [address] PCP - General 10/08/23 documented as of this encounter
--- OUTSIDE RECORDS SUMMARY | 2024-07-14 15:21 | XMS_ITS | Clinical Summary ---
Author Organization [facility] Address [address] [place] [address] Care Team Providers Care Sports Physical Therapist Name Role Phone Pcp, Chester Akbar MD Primary Care Provider [phone] Allergies Active Allergy Reactions Criticality Noted Date [...] Recent Progress Patient-Stated? Author Carry glucose tablets [facility] [place]lyn Coyle, RN Take Novolog 5-10 minutes before each meal [facility] [place] Kimberlyn Coyle, RN Schedule eye exam [facility] [place] Kimberlyn Coyle, RN Check BG TID before breakfast, lunch and dinner and keep log [facility] [place] Kimberlyn Coyle, RN Care Teams Sports Physical Therapist Relationship Specialty Start Date End Date Pcp, Chester Akbar MD [address] [place] [address] PCP - General Inspector Raw Quartz 08/17/21
--- OUTSIDE RECORDS SUMMARY | 2024-07-14 15:21 | XMS_ITS | Encounter Summary ---
Author Organization [employer] Address [address] [place] [address] Care Team Providers Care Cage Fighter Name Role Phone Brea Maciel MD Primary Care Provider [phone] Encounter Details Date Type Department Care Team (Late st Contact Info) Description 07/08/2024 [facility] Radiation Oncology 271 [facility] 2[address] [place] [address] Brea Plunkett, ROSIBEL Social History Tobacco Use Types Packs/Day Years [...] EST Met with pt using in demand produce associate Kenyon # [id number] to teach him how to use/apply hydrogel [...] Info) Description 08/06/2024 1:30 PM EST Appointment [facility] Radiation Oncology [address] [phone] Micaela Sandhu NP [address] [place] [phone] 08/11/2024 1:30 PM EDT Office Visit [facility] Hematology Oncology [address] [place] [phone] Tawana Chang MD [address] [place] [address] documented as of this encounter Visit Diagnoses Not on filedocumented in this encounter Care Teams Cage Fighter Relationship Specialty Start Date End Date Brea Maciel MD [address] [place] [address] PCP - General 10/08/23 documented as of this encounter
--- OUTSIDE RECORDS SUMMARY | 2024-07-14 15:21 | XMS_ITS | Encounter Summary ---
Author Organization [employer] Address [address] [place] [address] Care Team Providers Care Small Brake Form Operator Name Role Phone Brea Maciel MD Primary Care Provider [phone] Encounter Details Date Type Department Care Team (Latest Contact Info) Description 07/10/2024 11:10 AM EST - 07/10/2024 11:59 PM EST Hospital Encounter [facility] Radiation Oncology [address] [phone] Discharge Disposition: Home or Self Care Social [...] Info) Description 08/06/2024 1:30 PM EST Appointment [facility] Radiation Oncology [address] [place] [phone] Micaela Sandhu NP [address] [place] [address] [place] [phone] 08/11/2024 1:30 PM EDT Office Visit [facility] Hematology Oncology [address] [place] [phone] Tawana Chang MD [address] [place] [address] documented as of this encounter Procedures Procedure [...] 3 PM EST Physician Radiation Oncology RADIATION ONCOLO GY ORDERABLES Final Result MOSAIQ RADIATION ONCOLOGY documented in this encounter Visit Diagnoses Not on filedocumented in this encounter Care Teams Small Brake Form Operator Relationship Specialty Start Date End Date Brea Maciel MD [address] [place] [address] PCP - General 10/08/23 documented as of this encounter
--- OUTSIDE RECORDS SUMMARY | 2024-07-14 15:21 | XMS_ITS | Encounter Summary ---
Author Organization [employer] Address [address] [place] [address] Care Team Providers Care Life Science Teacher Name Role Phone Brea Maciel MD Primary Care Provider [phone] Encounter Details Date Type Department Care Team (Latest Contact Info) Description 07/04/2024 1:00 PM EST - 07/04/2024 11:59 PM EST Hospital Encounter [facility] Radiation Oncology [address] [phone] Discharge Disposition: Home or Self Care Social [...] Info) Description 08/06/2024 1:30 PM EST Appointment [facility] Radiation Oncology [address] [place] [phone] Micaela Sandhu NP [address] [place] [address] [place] [phone] 08/11/2024 1:30 PM EDT Office Visit [facility] Hematology Oncology [address] [place] [phone] Tawana Chang MD [address] [place] [address] documented as of this encounter Procedures Procedure [...] on filedocumented in this encounter Care Teams Life Science Teacher Relationship Specialty Start Date End Date Brea Maciel MD [address] [place] [address] PCP - General 10/08/23 documented as of this encounter
--- OUTSIDE RECORDS SUMMARY | 2024-07-14 15:22 | XMS_ITS | Encounter Summary ---
Author Organization [employer] Address [address] [place] [address] Care Team Providers Care Government Contracts Manager Name Role Phone Brea Maciel MD Primary Care Provider [phone] Reason for Visit * Reason Comments OTV Encounter Details Date Type Department Care Team (Latest Contact Info) Description 07/04/2024 1:50 PM EST - 07/04/2024 11:59 PM EST Hospital Encounter [facility] Radiation Oncology [address] [phone] Leyla Flanagan MD 271 [place] [address] Primary squamous cell carcinoma of lower gingiva [...] TEST BLOOD SUGAR FOUR TIMES DAILY 09/21/2023 cholecalciferol (VITAMIN D-3) 50 mcg (2,000 unit) [...] mg tablet Take by mouth at bedtime. chlorhexidine (PERIDEX) 0.12 % solution Use 15 mL in the mouth or throat 4 times daily. 04/10/2024 diphenhydrAMINE 12.5 mg/5 mL elixir 50 mg, aluminum-magnesi um hydroxide-simeth icone 400-400-40 mg/5 mL suspension 20 mL, lidocaine 2 % solution 20 mL Swish and spit 5 mL every 3 (three) hours if needed for mucositis for up to 116 doses. 5-10 mLs every 3 hours. 580 each 2 07/04/2024 nystatin (MYCOSTATIN) 100,000 unit/mL suspension Take 5 mL by mouth 4 (four) times a day for 14 days. Swish and swallow. Do not eat or drink for 30 min afterwards 280 mL 06/27/2024 documented as of this encounter Ordered Prescriptions Prescription Sig Dispense Quantity Refills Last Filled Start Date End Date diphenhydrAMINE 12.5 mg/5 mL elixir 50 mg, aluminum-magnesium hydroxide-simethic one 400-400-40 mg/5 mL suspension 20 mL, lidocaine [...] Progress Notes * Brea Plunkett, ROSIBEL - 07/04/2024 1:50 PM EST Accompanied by: [...] not eating much. Are you seeing a weather forcaster or speech language pathologist? Yes Does patient [...] Oncology On Treatment Visit Patient Name: Feliciano Penny Mushtaq Coronado Attending Provider: Leyla Flanagan MD Encounter [...] tracheostomy, teeth extractions by Dr. 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 Are you seeing a weather forcaster or speech language pathologist? Yes Does patient [...] Keep flushing feeding tube. Start using feedings. Electrical Tests Supervisor consulted. 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
--- OUTSIDE RECORDS SUMMARY | 2024-07-14 15:23 | XMS_ITS | Encounter Summary ---
Author Organization [employer] Address [address] [place] [address] Care Team Providers Care Emergency Registrar Name Role Phone Brea Maciel MD Primary Care Provider [phone] Encounter Details Date Type Department Care Team (Latest Contact Info) Description 07/03/2024 12:51 PM EST - 07/03/2024 11:59 PM EST Hospital Encounter [facility] Radiation Oncology [address] [phone] Discharge Disposition: Home or Self Care Social [...] Info) Description 08/06/2024 1:30 PM EST Appointment [facility] Radiation Oncology [address] [phone] Micaela Sandhu NP [address] [place] [address] [place] [address] 08/11/2024 1:30 PM EDT Office Visit [facility] Hematology Oncology 271 [place] [address] Tawana Chang MD 271 [place] [address] documented as of this encounter Procedures Procedure [...] MOS[facility]Q RADIATION ONCOLOGY 07/03/2024 1:49 PM EST us Physician Radiation Oncology RADIATION ONCOLO GY ORDERABLES Final Result MOSAIQ RADIATION ONCOLOGY documented in this encounter Visit Diagnoses Not on filedocumented in this encounter Care Teams Emergency Registrar Relationship Specialty Start Date End Date Brea Maciel MD [address] [place] [address] PCP - General 10/08/23 documented as of this encounter
--- OUTSIDE RECORDS SUMMARY | 2024-07-14 15:23 | XMS_ITS | Encounter Summary ---
Author Organization [employer] Address [address] [place] [address] Care Team Providers Care Business Case Analyst Name Role Phone Brea Maciel MD Primary Care Provider [phone] Encounter Details Date Type Department Care Team (Latest Contact Info) Description 07/02/2024 1:08 PM EST - 07/02/2024 11:59 PM EST Hospital Encounter Radiation Oncology [address] [phone] Discharge Disposition: Home or Self Care Social [...] Info) Description 08/06/2024 1:30 PM EST Appointment Radiation Oncology [address] [phone] Micaela Sandhu NP [address] [place] [address] [place] [address] 08/11/2024 1:30 PM EDT Office Visit Hematology Oncology 271 [place] [address] Tawana Chang MD [address] [place] [address] documented as of this encounter Procedures Procedure [...] MOSAIQ RADIATION ONCOLOGY 07/02/2024 1:32 PM EST us Physician Radiation Oncology RADIATION ONCOLO GY ORDERABLES Final Result MOSAIQ RADIATION ONCOLOGY documented in this encounter Visit Diagnoses Not on filedocumented in this encounter Care Teams Business Case Analyst Relationship Specialty Start Date End Date Brea Maciel MD [address] [place] [address] PCP - General 10/08/23 documented as of this encounter
--- OUTSIDE RECORDS SUMMARY | 2024-07-14 15:23 | XMS_ITS | Encounter Summary ---
Author Organization [employer] Address [address] [place] [address] Care Team Providers Care Roll Tube Setter Name Role Phone Brea Maciel MD Primary Care Provider Encounter Details Date Type Department Care Team (Latest Contact Info) Description 07/08/2024 1:09 PM EST - 07/08/2024 11:59 PM EST Hospital Encounter [facility] Radiation Oncology [address] [phone] Discharge Disposition: Home or Self Care Social [...] [facility] [address] [place] [phone] Micaela Sandhu NP [address] [place] [address] [place] [phone] 08/11/2024 1:30 PM EDT Office Visit [facility] Hematology Oncology [address] [place] [phone] Tawana Chang MD [address] [place] [address] documented as of this encounter Procedures Procedure [...] 1:20 PM EST Physician Radiation Oncology RADIATION ONCOLO GY ORDERABLES Final Result MOSAIQ RADIATION ONCOLOGY documented in this encounter Visit Diagnoses Not on filedocumented in this encounter Care Teams Roll Tube Setter Relationship Specialty Start Date End Date Brea Maciel MD [address] [place] [address] PCP - General 10/08/23 documented as of this encounter
--- OUTSIDE RECORDS SUMMARY | 2024-07-14 15:23 | XMS_ITS | Encounter Summary ---
Author Organization [employer] Address [address] [place] [address] Care Team Providers Care Religious Educator Name Role Phone Brea Maciel MD Primary Care Provider [phone] Encounter Details Date Type Department Care Team (Latest Contact Info) Description 07/07/2024 12:53 PM EST - 07/07/2024 11:59 PM EST Hospital Encounter [facility] Radiation Oncology [address] [phone] Discharge Disposition: Home or Self Care Social [...] Info) Description 08/06/2024 1:30 PM EST Appointment [facility] Radiation Oncology [address] [place] [phone] Micaela Sandhu NP [address] [place] [address] [place] [phone] 08/11/2024 1:30 PM EDT Office Visit [facility] Hematology Oncology [address] [place] [phone] Tawana Chang MD [address] [place] [address] documented as of this encounter Procedures Procedure [...] on filedocumented in this encounter Care Teams Religious Educator Relationship Specialty Start Date End Date Brea Maciel MD [address] [place] [address] PCP - General 10/08/23 documented as of this encounter
--- OUTSIDE RECORDS SUMMARY | 2024-07-14 15:25 | XMS_ITS | Encounter Summary ---
Author Organization [employer] Address [address] [place] [address] Care Team Providers Care Consumer Science Teacher Name Role Phone Brea Maciel MD Primary Care Provider [phone] Encounter Details Date Type Department Care Team (Latest Contact Info) Description 06/30/2024 12:41 PM EST - 06/30/2024 11:59 PM EST Hospital Encounter [facility] Radiation Oncology [address] [phone] Discharge Disposition: Home or Self Care Social [...] Description 08/06/2024 1:30 PM EST Appointment [facility] Radiation Oncology [address] [phone] Micaela Sandhu NP [address] [place] [address] [place] [address] 08/11/2024 1:30 PM EDT Office Visit [facility] Hematology Oncology 271 [place] [address] Tawana Chang MD [address] [place] [address] documented as of this encounter Procedures Procedure [...] MOS[facility]Q RADIATION ONCOLOGY 06/30/2024 1:20 PM EST us Physician Radiation Oncology RADIATION ONCOLO GY ORDERABLES Final Result MOS[facility]Q RADIATION ONCOLOGY documented in this encounter Visit Diagnoses Not on filedocumented in this encounter Care Teams Consumer Science Teacher Relationship Specialty Start Date End Date Brea Maciel MD [address] [place] [address] PCP - General 10/08/23 documented as of this encounter
--- OUTSIDE RECORDS SUMMARY | 2024-07-14 15:25 | XMS_ITS | Encounter Summary ---
Author Organization [employer] Address [address] [place] [address] Care Team Providers Care Government Minister Name Role Phone Brea Maciel MD Primary Care Provider [phone] Encounter Details Date Type Department Care Team (Latest Contact Info) Description 06/26/2024 1:00 PM EST - 06/26/2024 11:59 PM EST Hospital Encounter [facility] Radiation Oncology [address] [phone] Discharge Disposition: Home or Self Care Social [...] Info) Description 08/06/2024 1:30 PM EST Appointment [facility] Radiation Oncology [address] [phone] Micaela Sandhu NP [address] [place] [address] [address] [place] [phone] 08/11/2024 1:30 PM EDT Office Visit [facility] Hematology Oncology 271 [place] [address] Tawana Chang MD [address] [place] [address] documented as of this encounter Procedures Procedure [...] MOSAIQ RADIATION ONCOLOGY 06/26/2024 1:31 PM EST us Physician Radiation Oncology RADIATION ONCOLO GY ORDERABLES Final Result MOS[facility]Q RADIATION ONCOLOGY documented in this encounter Visit Diagnoses Not on filedocumented in this encounter Care Teams Government Minister Relationship Specialty Start Date End Date Brea Maciel MD [address] [place] [phone] PCP - General 10/08/23 documented as of this encounter
--- OUTSIDE RECORDS SUMMARY | 2024-07-14 15:25 | XMS_ITS | Encounter Summary ---
Author Organization [employer] Address [address] [place] [address] Care Team Providers Care Aircraft Engineer Name Role Phone Brea Maciel MD Primary Care Provider [phone] Reason for Visit * Reason Comments OTV Encounter Details Date Type Department Care Team (Latest Contact Info) Description 06/30/2024 1:26 PM EST - 06/30/2024 11:59 PM EST Hospital Encounter [facility] Radiation Oncology 271 [facility] 2nd [place] [address] Lázaro Campuzano MD [address] [facility] [address] [place] [address] Head and neck cancer (CMS/HCC) (Primary Dx) [...] Name: Feliciano Penny Mushtaq Coronado Attending Provider: Lázaro Campuzano MD Encounter [...] tracheostomy, teeth extractions by Dr. 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 No [...] beans and chicken. Are you seeing a dock builder or speech language pathologist? Yes Does [...] daily on neck. Went to [facility] ER on 06/12/24 due to concern [...] Info) Description 08/06/2024 1:30 PM EST Appointment [facility] Radiation Oncology [address] [place] [phone] Micaela Sandhu NP [address] [place] [address] [facility] [place] [address] 08/11/2024 1:30 PM EDT Office Visit [facility] Hematology Oncology [address] [place] [phone] Tawana Chang MD [address] [place] [address] documented as of this encounter Visit Diagnoses Diagnosis Head and neck cancer (CMS/HCC)- Primary documented in this encounter Care Teams Aircraft Engineer Relationship Specialty Start Date End Date Brea Maciel MD [address] [place] [phone] PCP - General 10/08/23 documented as of this encounter
--- OUTSIDE RECORDS SUMMARY | 2024-07-14 15:25 | XMS_ITS | Encounter Summary ---
Author Organization [employer] Address [address] [place] [address] Care Team Providers Care Metal Hanging Helper Name Role Phone Brea Maciel MD Primary Care Provider [phone] Encounter Details Date Type Department Care Team (Latest Contact Info) Description 07/01/2024 1:07 PM EST - 07/01/2024 11:59 PM EST Hospital Encounter [facility] Radiation Oncology [address] [phone] Discharge Disposition: Home or Self Care Social [...] Info) Description 08/06/2024 1:30 PM EST Appointment [facility] Radiation Oncology [address] [phone] Micaela Sandhu NP [address] [place] [address] [place] [address] 08/11/2024 1:30 PM EDT Office Visit [facility] Hematology Oncology [address] [place] [address] Tawana Chang MD [address] [place] [address] documented as of this encounter Procedures Procedure [...] MOSAIQ RADIATION ONCOLOGY 07/01/2024 2:05 PM EST us Physician Radiation Oncology RADIATION ONCOLO GY ORDERABLES Final Result MOSAIQ RADIATION ONCOLOGY documented in this encounter Visit Diagnoses Not on filedocumented in this encounter Care Teams Metal Hanging Helper Relationship Specialty Start Date End Date Brea Maciel MD [address] [place] [address] PCP - General 10/08/23 documented as of this encounter
--- OUTSIDE RECORDS SUMMARY | 2024-07-14 15:25 | XMS_ITS | Encounter Summary ---
Author Organization [employer] Address [address] [place] [address] Care Team Providers Care Woods Boss Name Role Phone Brea Maciel MD Primary Care Provider [phone] Encounter Details Date Type Department Care Team (Latest Contact Info) Description 06/27/2024 1:06 PM EST - 06/27/2024 11:59 PM EST Hospital Encounter [facility] Radiation Oncology [address] [phone] Discharge Disposition: Home or Self Care Social [...] Info) Description 08/06/2024 1:30 PM EST Appointment [facility] Radiation Oncology [address] [phone] Micaela Sandhu NP [address] [place] [address] [place] [address] 08/11/2024 1:30 PM EDT Office Visit [facility] Hematology Oncology [address] [place] [address] Tawana Chang MD [address] [place] [address] documented as of this encounter Procedures Procedure [...] MOSAIQ RADIATION ONCOLOGY 06/27/2024 1:24 PM EST us Physician Radiation Oncology RADIATION ONCOLO GY ORDERABLES Final Result MOSAIQ RADIATION ONCOLOGY documented in this encounter Visit Diagnoses Not on filedocumented in this encounter Care Teams Woods Boss Relationship Specialty Start Date End Date Brea Maciel MD [address] [place] [address] PCP - General 10/08/23 documented as of this encounter
--- OUTSIDE RECORDS SUMMARY | 2024-07-14 15:26 | XMS_ITS | Encounter Summary ---
Author Organization [employer] Address [address] [place] [address] Care Team Providers Care Search Advertising Strategist Name Role Phone Brea Maciel MD Primary Care Provider [phone] Reason for Visit * Reason Comments OTV Encounter Details Date Type Department Care Team (Latest Contact Info) Description 06/27/2024 1:24 PM EST - 06/27/2024 11:59 PM EST Hospital Encounter [facility] Radiation Oncology [address] [phone] Leyla Flanagan MD 271 [place] [address] Primary squamous cell carcinoma of lower gingiva [...] kg (150 lb 9.6 oz) 06/27/2024 1:49 P M EST Height - - Body [...] for 30 min afterwards 280 mL 06/27/2024 5 documented as of this encounter Ordered Prescriptions Prescription Sig Dispense Quantity Refills Last Filled Start Date End Date nystatin (MYCOSTATIN) 100,000 unit/mL suspension Take 5 mL by mouth 4 (four) times a day for 14 days. Swish and swallow. Do not eat or drink for 30 min afterwards 280 mL 06/27/2024 5 documented in this encounter Discharge Disposition Disposition Code Departure Means Destination Home or Self Care documented in this encounter Progress Notes * Brea Plunkett RN - 06/27/2024 1:50 PM EST Accompanied by: self and in demand floorworker Bg # [id number] Subjective: Are you experiencing any fatigue? No [...] beans and chicken. Are you seeing a brush material preparer or speech language pathologist? Yes Does patient [...] Chang Accompanied by: self and in demand floorworker Bg # [id number] Subjective: Are you experiencing any fatigue? No [...] beans and chicken. Are you seeing a brush material preparer or speech language pathologist? Yes Does patient [...] moisturizer once daily on neck. Went to [facility] ER on 06/12/24 due to concern [...] EST Appointment [facility] Radiation Oncology [address] [place] [phone] Micaela Sandhu NP [address] [place] [address] [place] [phone] 08/11/2024 1:30 PM EDT Office Visit 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
--- OUTSIDE RECORDS SUMMARY | 2024-07-14 15:27 | XMS_ITS | Encounter Summary ---
Author Organization [employer] Address [address] [place] [address] Care Team Providers Care Ground Wood Supervisor Name Role Phone Brea Maciel MD Primary Care Provider [phone] Encounter Details Date Type Department Care Team (Latest Contact Info) Description 06/19/2024 12:41 PM EST - 06/19/2024 11:59 PM EST Hospital Encounter [facility] Radiation Oncology [address] [phone] Discharge Disposition: Home or Self Care Social [...] mg tablet Take by mouth at bedtime. amoxicillin-clav ulanate (AUGMENTIN) 600-42.9 mg/5 mL suspension Take 7.3 mL (875 mg total) by mouth 2 (two) times a day for 10 days. 146 mL 06/12/2024 documented as of this encounter Discharge Disposition Disposition Code Departure Means Destination Home or Self Care documented in this encounter Plan of Treatment Upcoming Encounters Date Type Department Care Team (Late st Contact Info) Description 08/06/2024 1:30 PM EST Appointment [facility] Radiation Oncology [address] [phone] Micaela Sandhu NP [address] [place] [address] [place] [address] 08/11/2024 1:30 PM EDT Office Visit [facility] Hematology Oncology 271 [place] [address] Tawana Chang MD 271 [place] [address] documented as of this encounter Procedures Procedure [...] MOSAIQ RADIATION ONCOLOGY 06/19/2024 1:25 PM EST us Physician Radiation Oncology RADIATION ONCOLO GY ORDERABLES Final Result MOSAIQ RADIATION ONCOLOGY documented in this encounter Visit Diagnoses Not on filedocumented in this encounter Care Teams Ground Wood Supervisor Relationship Specialty Start Date End Date Brea Maciel MD [address] [place] [address] PCP - General 10/08/23 documented as of this encounter
--- OUTSIDE RECORDS SUMMARY | 2024-07-14 15:27 | XMS_ITS | Encounter Summary ---
Author Organization [employer] Address [address] [place] [address] Care Team Providers Care General Milling Superintendent Name Role Phone Brea Maciel MD Primary Care Provider [phone] Encounter Details Date Type Department Care Team (Latest Contact Info) Description 06/23/2024 1:12 PM EST - 06/23/2024 11:59 PM EST Hospital Encounter [facility] Radiation Oncology [address] [phone] Discharge Disposition: Home or Self Care Social [...] Appointment [facility] Radiation Oncology [address] [phone] Micaela Sandhu NP [address] [place] [address] [address] [place] [phone] 08/11/2024 1:30 PM EDT Office Visit [facility] Hematology Oncology 271 [place] [address] Tawana Chang MD 271 [place] [address] documented as of this encounter Procedures Procedure [...] MOSAIQ RADIATION ONCOLOGY 06/23/2024 1:35 PM EST us Physician Radiation Oncology RADIATION ONCOLO GY ORDERABLES Final Result MOSAIQ RADIATION ONCOLOGY documented in this encounter Visit Diagnoses Not on filedocumented in this encounter Care Teams General Milling Superintendent Relationship Specialty Start Date End Date Brea Maciel MD [address] [place] [phone] PCP - General 10/08/23 documented as of this encounter
--- OUTSIDE RECORDS SUMMARY | 2024-07-14 15:27 | XMS_ITS | Encounter Summary ---
Author Organization [employer] Address [address] [place] [address] Care Team Providers Care Renal Nurse Name Role Phone Brea Maciel MD Primary Care Provider [phone] Encounter Details Date Type Department Care Team (Latest Contact Info) Description 06/24/2024 1:05 PM EST - 06/24/2024 11:59 PM EST Hospital Encounter [facility] Radiation Oncology [address] [phone] Discharge Disposition: Home or Self Care Social [...] Info) Description 08/06/2024 1:30 PM EST Appointment [facility] Radiation Oncology [address] [phone] Micaela Sandhu NP [address] [place] [address] [address] [place] [phone] 08/11/2024 1:30 PM EDT Office Visit [facility] Hematology Oncology 271 [place] [address] Tawana Chang MD 271 [place] [address] documented as of this encounter Procedures Procedure [...] MOSAIQ RADIATION ONCOLOGY 06/24/2024 1:58 PM EST us Physician Radiation Oncology RADIATION ONCOLO GY ORDERABLES Final Result MOSAIQ RADIATION ONCOLOGY documented in this encounter Visit Diagnoses Not on filedocumented in this encounter Care Teams Renal Nurse Relationship Specialty Start Date End Date Brea Maciel MD [address] [place] [phone] PCP - General 10/08/23 documented as of this encounter
--- OUTSIDE RECORDS SUMMARY | 2024-07-14 15:27 | XMS_ITS | Encounter Summary ---
Author Organization [employer] Address [address] [place] [address] Care Team Providers Care Real Estate Site Analyst Name Role Phone Brea Maciel MD Primary Care Provider [phone] Encounter Details Date Type Department Care Team (Latest Contact Info) Description 06/16/2024 12:40 PM EST - 06/16/2024 11:59 PM EST Hospital Encounter [facility] Radiation Oncology [address] [phone] Discharge Disposition: Home or Self Care Social [...] day for 10 days. 146 mL 06/12/2024 5 saccharomyces boulardii (FLORASTOR) 250 mg capsule Take 1 capsule (250 mg total) by mouth 2 (two) times a day for 7 days. 14 capsule 06/12/2024 5 documented as of this encounter Discharge Disposition Disposition Code Departure Means Destination Home or Self Care documented in this encounter Plan of Treatment Upcoming Encounters Date Type Department Care Team (Late st Contact Info) Description 08/06/2024 1:30 PM EST Appointment [facility] Radiation Oncology [address] [phone] Micaela Sandhu NP [address] [place] [address] [facility] [place] [address] 08/11/2024 1:30 PM EDT Office Visit [facility] Hematology Oncology [address] [place] [phone] Tawana Chang MD 271 [place] [address] documented as of this encounter Procedures Procedure [...] 06/16/2024 1:26 PM EST Physician Radiation Oncology RADIATION ONCOLO GY ORDERABLES Final Result MOSAIQ RADIATION ONCOLOGY documented in this encounter Visit Diagnoses Not on filedocumented in this encounter Care Teams Real Estate Site Analyst Relationship Specialty Start Date End Date Brea Maciel MD [address] [place] [address] PCP - General 10/08/23 documented as of this encounter
--- OUTSIDE RECORDS SUMMARY | 2024-07-14 15:27 | XMS_ITS | Encounter Summary ---
Author Organization [employer] Address [address] [place] [address] Care Team Providers Care Middle School English Teacher Name Role Phone Brea Maciel MD Primary Care Provider [phone] Encounter Details Date Type Department Care Team (Latest Contact Info) Description 06/25/2024 1:03 PM EST - 06/25/2024 11:59 PM EST Hospital Encounter [facility] Radiation Oncology [address] [phone] Discharge Disposition: Home or Self Care Social [...] Info) Description 08/06/2024 1:30 PM EST Appointment [facility] Radiation Oncology [address] [phone] Micaela Sandhu NP [address] [place] [address] [address] [place] [phone] 08/11/2024 1:30 PM EDT Office Visit [facility] Hematology Oncology [address] [place] [address] Tawana Chang MD 271 [place] [address] documented as of this encounter Procedures Procedure [...] MOSAIQ RADIATION ONCOLOGY 06/25/2024 2:02 PM EST us Physician Radiation Oncology RADIATION ONCOLO GY ORDERABLES Final Result MOSAIQ RADIATION ONCOLOGY documented in this encounter Visit Diagnoses Not on filedocumented in this encounter Care Teams Middle School English Teacher Relationship Specialty Start Date End Date Brea Maciel MD [address] [place] [phone] PCP - General 10/08/23 documented as of this encounter
--- OUTSIDE RECORDS SUMMARY | 2024-07-14 15:28 | XMS_ITS | Encounter Summary ---
Author Organization [employer] Address [address] [place] [address] Care Team Providers Care Campaign Advisor Name Role Phone Brea Maciel MD Primary Care Provider [phone] Reason for Visit * Reason Comments OTV Encounter Details Date Type Department Care Team (Latest Contact Info) Description 06/17/2024 1:26 PM EST - 06/17/2024 11:59 PM EST Hospital Encounter [facility] Radiation Oncology [address] [phone] Leyla Flanagan MD 271 [place] [address] Primary squamous cell carcinoma of lower gingiva [...] beans and chicken. Are you seeing a printing specialist or speech language pathologist? Yes Does patient have a g-tube? Yes . If so, How many cans per day are you using via g-tube? N/A Any problems with the tube or tube site? No, flushing tube twice daily. Pt reports lip is painful. Pt to see MD in [place] tomorrow. * Leyla Flanagan MD - 06/17/2024 [...] tracheostomy, teeth extractions by Dr. 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 Are you seeing a printing specialist or speech language pathologist? Yes Does patient have a g-tube? Yes . If so, How many cans per day are you using via g-tube? N/A Any problems with the tube or tube site? No, flushing tube twice daily. Pt reports lip is painful. Pt to see MD in [place] tomorrow. Physical Exam: There were no vitals [...] moisturizer once daily on neck. Went to [facility] ER on 06/12/24 due to concern for infection, per ER note suspicion was low but pt placed on antibiotic and told to follow up with surgeon. Pt missed RT 06/12 and 06/13. Small patch of mucositis on right lower lip, I recommend applying aqupahor to this area. Samples given. Pt has FU Dr. Lu ([facility] surgeon) tomorrow. 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
--- OUTSIDE RECORDS SUMMARY | 2024-07-14 15:29 | XMS_ITS | Encounter Summary ---
Author Organization [facility] Address [address] [place] [address] Care Team Providers Care Crop Nutrition Scientist Name Role Phone Brea Maciel MD Primary Care Provider [phone] Encounter Details Date Type Department Care Team (Latest Contact Info) Description 06/18/2024 12:23 PM EST - 06/18/2024 11:59 PM EST Hospital Encounter [facility] Radiation Oncology [address] [phone] Discharge Disposition: Home or Self Care Social [...] EST Appointment [facility] Radiation Oncology [address] [place] [phone] Micaela Sandhu NP [address] [place] [phone] 08/11/2024 1:30 PM EDT Office Visit [facility] Hematology Oncology [address] [place] [phone] Tawana Chang MD 271 [place] [address] documented as of this encounter Procedures Procedure [...] on filedocumented in this encounter Care Teams Crop Nutrition Scientist Relationship Specialty Start Date End Date Brea Maciel MD [address] [place] [phone] PCP - General 10/08/23 documented as of this encounter
--- OUTSIDE RECORDS SUMMARY | 2024-07-14 15:29 | XMS_ITS | Encounter Summary ---
Author Organization [employer] Address [address] [place] [address] Care Team Providers Care Paper Folder Name Role Phone Brea Maciel MD Primary Care Provider [phone] Encounter Details Date Type Department Care Team (Latest Contact Info) Description 06/17/2024 12:41 PM EST - 06/17/2024 11:59 PM EST Hospital Encounter [facility] Radiation Oncology [address] [phone] Discharge Disposition: Home or Self Care Social [...] Info) Description 08/06/2024 1:30 PM EST Appointment [facility] Radiation Oncology [address] [phone] Micaela Sandhu NP [address] [place] [address] [facility] [place] [address] 08/11/2024 1:30 PM EDT Office Visit [facility] Hematology Oncology [address] [place] [phone] Tawana Chang MD [address] [place] [address] documented as of this encounter Procedures Procedure [...] 06/17/2024 1:26 PM EST Physician Radiation Oncology RADIATION ONCOLO GY ORDERABLES Final Result MOSAIQ RADIATION ONCOLOGY documented in this encounter Visit Diagnoses Not on filedocumented in this encounter Care Teams Paper Folder Relationship Specialty Start Date End Date Brea Maciel MD [address] [place] [address] PCP - General 10/08/23 documented as of this encounter
--- OUTSIDE RECORDS SUMMARY | 2024-07-14 15:29 | XMS_ITS | Encounter Summary ---
Author Organization [employer] Address [address] [facility] 7t [place] [address] Care Team Providers Care Maintenance And Custodian Supervisor Name Role Phone Brea Maciel MD Primary Care Provider [phone] Reason for Visit * Reason Onset Date Comments Prior Authorization 07/14/2024 Encounter Details Date Type Department Care Team ([facility] Contact Info) Description 07/14/2024 Telephone [facility] MED & PEDS [address] [place] [address] Brea Maciel MD 505 [place] [address] Prior Authorization Social History Tobacco Use Types Packs/Day Years Used Date Smoking Tobacco: Former Cigarettes 3 15 0 06/04/1973 - 06/04/1988 Passive Smoke Exposure: Current Smokeless Tobacco: Never Alcohol Use Standard Drinks/Week Comments Not Currently 0 (1 standard drink = 0.6 oz pur e alcohol) Depression Answer Date Recorded Patient Health Questionnaire-9 Score 0 07/09/2024 Patient Health Questionnaire-9 Score 0 07/09/2024 Last PHQ-9: Questionnaire Data Not on file 0 07/09/2024 Housing Stability Answer Date Recorded What is [...] Date Recorded Patient Health Questionnaire-2 Score 0 07/09/2024 Internet Access Answer Date Recorded Internet Access [...] encounter Miscellaneous Notes * Telephone Encounter - Lorin [place] LPN - 07/14/2024 11:23 AM EST PA GENERATED FOR LIDOCAINE PATCH VIA CMM PENDING DECISION documented in this encounter Plan of Treatment Upcoming Encounters Date Type Department Care Team ([facility] st Contact Info) Description 08/19/2024 1:15 PM EDT Office Visit [facility] MED & PEDS [address] [place] [address] Santosh Walker MD [address] [place] [address] documented as of this encounter Visit Diagnoses Not on filedocumented in this encounter Additional Health Concerns Assessment Noted Time PHQ-9 Depression Total Score: 0 07/09/19 25 8:57 AM EST documented as of this encounter Care Teams Maintenance And Custodian Supervisor Relationship Specialty Start Date End Date Brea Maciel MD [address] [place] [address] PCP - General Family Medicine 09/21/23 documented as of this encounter
--- OUTSIDE RECORDS SUMMARY | 2024-07-14 15:29 | XMS_ITS | Encounter Summary ---
Author Organization [employer] Address [address] [facility] 7t [place] [address] Care Team Providers Care Risk Manager Name Role Phone Brea Maciel MD Primary Care Provider [phone] Reason for Visit * Reason Comments Med Refill Encounter Details Date Type Department Care Team ([facility] Contact Info) Description 05/01/2024 Refill [facility] MED & PEDS [address] [place], [place] [phone] Manjinder Tucker MD [address] [place] [address] Psoriasis Social History Tobacco Use Types Packs/Day Years [...] 08/19/2024 1:15 PM EDT Office Visit [facility] MED & PEDS [address] [place] [address] ArroyoSantosh Richardson MD [address] [place] [address] documented as of this encounter Visit Diagnoses Diagnosis Psoriasis Other psoriasis documented in this encounter Additional Health Concerns Assessment Noted Time PHQ-9 Depression Total Score: 10 024 11:21 AM EDT documented as of this encounter Care Teams Risk Manager Relationship Specialty Start Date End Date Brea Maciel MD [address] [place] [address] PCP - General Family Medicine 09/21/23 documented as of this encounter
--- OUTSIDE RECORDS SUMMARY | 2024-07-14 15:29 | XMS_ITS | Encounter Summary ---
Author Organization [employer] Address [address] [facility] 7t [place] [address] Care Team Providers Care Tube Mill Operator Name Role Phone Brea Maciel MD Primary Care Provider [phone] Encounter Details Date Type Department Care Team (Latest Contact Info) Description 07/09/2024 Travel Social History Tobacco Use Types Packs/Day Years [...] Upcoming Encounters Date Type Department Care Team ([facility] st Contact Info) Description 08/19/2024 1:15 PM EDT Office Visit [facility] CHC MED & PEDS [address] [place], [place] [phone] Santosh Walker MD 505 [place], [place] [phone] documented as of this encounter Visit Diagnoses Not on filedocumented in this encounter Additional Health Concerns Assessment Noted Time PHQ-9 Depression Total Score: 0 07/09/19 25 8:57 AM EST documented as of this encounter Care Teams Tube Mill Operator Relationship Specialty Start Date End Date Brea Maciel MD [address] [place] [address] PCP - General Family Medicine 09/21/23 documented as of this encounter
--- OUTSIDE RECORDS SUMMARY | 2024-07-14 15:29 | XMS_ITS | Encounter Summary ---
Author Organization [employer] Address [address] [facility] 7t [place] [address] Care Team Providers Care Ship Cleaner Name Role Phone Brea Maciel MD Primary Care Provider [phone] Encounter Details Date Type Department Care Team (Late st Contact Info) Description 07/24/2023 Orders Only [facility] [address] [place] [address] Shawn Mendez MD [address] [place] [address] Social History Tobacco Use Types Packs/Day Years Used Date Smoking Tobacco: Never Smokeless Tobacco: Never Sex and Gender Information Value Date Recorded Sex Assigned at Male 07/12/2023 2:18 PM EST Legal Sex Male 3:23 PM EST Gender Identity Male 07/12/2023 2:18 PM EST Sexual Orientation Straight 07/12/2023 2: 18 PM EST documented as of this encounter Plan of Treatment Upcoming Encounters Date Type Department Care Team (Late st Contact Info) Description 08/19/2024 1:15 PM EDT Office Visit [facility] MED & PEDS [address] [place], [place] [phone] Santosh Walker MD [address] [place], [place] [phone] documented as of this encounter Visit Diagnoses Not on filedocumented in this encounter Care Teams Ship Cleaner Relationship Specialty Start Date End Date Brea Maciel MD [address] [place] [address] PCP - General Family Medicine 09/21/23 documented as of this encounter
--- OUTSIDE RECORDS SUMMARY | 2024-07-14 15:29 | XMS_ITS | Encounter Summary ---
Author Organization [employer] Address [address] [place] [address] Care Team Providers Care Lamination Inspector Name Role Phone Brea Maciel MD Primary Care Provider [phone] Encounter Details Date Type Department Care Team (Late st Contact Info) Description 06/16/[address] [facility] Radiation Oncology [address] [place] [address] [address] [place] [phone] Micaela Sandhu, QUAN [address] [place] [phone] Social History Tobacco Use Types Packs/Day Years [...] 10:06 AM EST Spoke with patient with data entry analyst [phone] [address]. Patient states he is feeling a little better from 06/12/24. Lip is still swollen and has bloody discharge. He denies fevers. It is still painful. He is due to see Oncology in [place] 06/18/24. Dr. Flanagan would like him to resume treatment today. Patientis agreeable and will come in today at his scheduled time. documented in this encounter Plan of Treatment Upcoming Encounters Date Type Department Care Team (Late st Contact Info) Description 08/06/2024 1:[address] [facility] Radiation Oncology [address] [phone] Micaela Sandhu NP [address] [place] [phone] 08/11/2024 1:30 PM EDT Office Visit [facility] Hematology Oncology [address] [place] [phone] Tawana Chang MD [address] [place] [address] documented as of this encounter Visit Diagnoses Not on filedocumented in this encounter Care Teams Lamination Inspector Relationship Specialty Start Date End Date Brea Maciel MD [address] [place] [phone] PCP - General 10/08/23 documented as of this encounter
--- OUTSIDE RECORDS SUMMARY | 2024-07-14 15:29 | XMS_ITS | Encounter Summary ---
Author Organization [employer] Address [address] [place] [address] Care Team Providers Care Motorized Squad Captain Name Role Phone Brea Maciel MD Primary Care Provider [phone] Reason for Visit * Reason Onset Date Comments Durable Medical Equipment 04/11/2024 Encounter Details Date Type Department Care Team ([facility] Contact Info) Description 04/11/2024 Telephone [facility] [address] [place] [address] Brea Maciel MD [address] [place] [phone] Durable Medical Equipment Social History Tobacco Use Types Packs/Day Years [...] encounter Miscellaneous Notes * Telephone Encounter - Chapito Smyth - 04/11/2024 3:09 PM EST Tc from [facility] ([employer]) requesting DME supply for pt Shower Chair, Race toilet seat with hand rest, walker with seat . Callback number [phone] documented in this encounter Plan of Treatment Upcoming Encounters Date Type Department Care Team (Late st Contact Info) Description 08/19/2024 1:15 PM EDT Office Visit [facility] [address] [place] [address] Santosh Walker MD [address] [place] [address] documented as of this encounter Visit Diagnoses Not on filedocumented in this encounter Additional Health Concerns Assessment Noted Time PHQ-9 Depression Total Score: 10 024 11:21 AM EDT documented as of this encounter Care Teams Motorized Squad Captain Relationship Specialty Start Date End Date Brea Maciel MD [address] [place] [address] PCP - General Family Medicine 09/21/23 documented as of this encounter
--- OUTSIDE RECORDS SUMMARY | 2024-07-14 15:29 | XMS_ITS | Clinical Summary ---
Author Organization [employer] Address [address] [place] [address] Care Team Providers Care Engraver Tender Name Role Phone Brea Maciel MD Primary Care Provider [phone] Allergies Active Allergy Reactions Criticality Noted Date Comments Liraglutide Unknown Medium 06/09/2019 Other reaction(s): did not feel right with it Other reaction(s): did not feel right with it Other reaction(s): did not feel right with it Other reaction(s): did not feel right with it Other reaction(s): did not feel right with it Other reaction(s): did not feel right with it Lisinopril Unknown Medium 06/09/2019 Other reaction(s): dry cough Other reaction(s): dry cough Other reaction(s): dry cough Other Other,Unknown Medium 11/25/2015 NSAIDS, Renal insuffciency NSAIDS, Renal insuffciency NSAIDS, Renal insuffciency NSAIDS, Renal insuffciency NSAIDS, Renal insuffciency NSAIDS, Renal insuffciency NSAIDS, Renal insuffciency NSAIDS, Renal insuffciency Medications Blood Pressure kit 1 kit in the morning. 1 kit 08/15/19 24 Active Cosentyx Sensoready, 300 MG, 150 MG/ML solution auto-injector 07/05/19 24 Active naproxen (Naprosyn) 500 MG tablet TAKE 1 TABLET BY MOUTH TWICE A DAY NEEDED FOR PAIN FOR 7 DAYS 09/17/19 24 Active Alcohol Swabs (Alcohol Prep) pads 2 Units 4 times daily. 200 each 11 09/21/19 24 Active FREESTYLE LITE test strip Use to test blood sugar QID 100 each 12 09/21/19 24 025 Active Blood Glucose Monitoring Suppl (FreeStyle Lite) w/Device kit 1 Units before breakfast, before lunch, before evening meal, and at bedtime. 1 kit 09/21/19 24 Active Lancets misc 1 Units 4 times daily. 200 each 11 10/05/19 24 Active Continuous Glucose Toll Operator (FreeStyle Marlen 2 Tyler) device 1 Units 4 times daily. 1 each 11/05/19 24 Active Continuous Glucose Sensor (FreeStyle Marlen 2 Sensor) misc 1 Units every 14 (fourteen) days. 2 each 11/05/19 24 Active tadalafil (Cialis) 5 MG tablet TAKE 1 TABLET BY MOUTH EVERY DAY NEEDED FOR SEXUAL ACTIVITY 11/15/19 24 Active oxyCODONE (Roxicodone) 10 MG immediate release tablet Take 10 mg by mouth every 4 (four) hours if needed. 03/25/20 24 Active sennosides (Senokot) 8.6 MG tablet Take 2 tablets by mouth Once per day. 04/10/20 24 Active tamsulosin (Flomax) 0.4 MG 24 hr capsule Take 1 capsule by mouth Once per day. 02/13/20 24 Active amLODIPine (Norvasc) 10 MG tablet Take 1 tablet (10 mg) by mouth Once per day. 90 tablet 1 04/18/20 24 Active atorvastatin (Lipitor) 10 MG tablet Take 1 tablet (10 mg) by mouth Once per day. 90 tablet 1 04/18/20 24 Active insulin glargine (Lantus SoloStar) 100 UNIT/ML pen Inject 24 Units under the skin at bedtime. 54 mL 1 04/18/20 24 Active levothyroxine (Synthroid, Levoxyl) 50 MCG tablet Take 1 tablet (50 mcg) by mouth before breakfast. 90 tablet 04/18/20 24 025 Active metFORMIN (Glucophage) 850 MG tablet Take 1 tablet (850 mg) by mouth with breakfast and with evening meal. 180 tablet 1 04/18/20 24 Active sertraline (Zoloft) 100 MG tablet Take 1 tablet (100 mg) by mouth Once per day. 90 tablet 1 04/18/20 24 Active aspirin 81 MG chewable tablet Chew 1 tablet (81 mg) Once per day. 90 tablet 3 04/18/20 24 11/15/2 025 Active Omeprazole 20 MG tablet delayed-releas e Take 1 tablet (20 mg) by mouth Once per day. 90 tablet 3 04/18/20 24 Active acetaminophen (Tylenol 8 Hour) 650 MG ER tablet Take 1 tablet (650 mg) by mouth every 8 (eight) hours if needed for mild pain. Do not crush, chew, or split. 90 tablet 04/18/20 24 Active doxepin (SINEquan) 10 MG capsule Take 1 capsule (10 mg) by mouth at bedtime. 30 capsule 2 04/22/20 Active calcipotriene (Dovonex) 0.005 % creamIndicatio ns:Psoriasis APPLY 1 GRAM TOPICALLY TO THE AFFECTED AREA(S) TWICE DAILY DIRECTED 60 g 3 05/05/20 Active chlorhexidine (Peridex) 0.12 % solution RINSE BY MOUTH WITH 15 ML AND SPIT OUT FOUR TIMES DAILY DIRECTED 946 mL 05/20/20 Active cholecalcifero l (Vitamin D-3) 50 MCG (1999 UT) capsule TAKE 1 CAPSULE BY MOUTH EVERY DAY 90 capsule 1 05/20/20 Active pen needle 32G x 4 mm misc USE TO INJECT INSULIN QID 200 each 11 05/20/20 24 Active insulin lispro (HumaLOG KWIKPEN) 100 UNIT/ML injection Inject 5 Units under the skin with breakfast, with lunch, and with evening meal. 6 mL 5 07/09/19 25 Active lidocaine (Lidoderm) 5 % patchIndicatio ns:Chronic midline low back pain without sciatica Apply 1 patch topically Once per day. Remove & discard patch within 12 hours or as directed by . 30 patch 1 07/09/19 25 Active insulin lispro (HumaLOG KWIKPEN) 100 UNIT/ML injection Inject 6 Units under the skin with breakfast, with lunch, and with evening meal. 6 mL 5 04/18/20 24 025 Discontinued Active Problems Problem Noted Date Diagnosed Date Hospital discharge follow-up 04/16/2024 Assessment & Plan (04/16/2024 12:36 PM EST): Patient was hospitalized from 03/06 to 03/25 after undergoing right mandibulectomy, neck exploration, tracheostomy and peg placement for a throat cancer. Patient then was sent for rehab on 03/25-04/09. Multiple medication changes were made, he did not brought his list or medications. Told to get blood work done to check liver/kidney and decide if increasing atorvastatin is appropiate. He will bring the rest of his medications later during the day for review and update chart. Primary insomnia 04/16/2024 Assessment & Plan (04/16/2024 12:37 PM EST): Will start trazodone, sleep hygiene techniques were discussed Throat cancer 01/28/2024 Assessment & Plan (01/28/2024 9:04 AM EDT): Will increase dose of oxycodone to 15 mg QID and f/up in 2 weeks, strongly recommended patient to discuss with oncology about input about his pain management. Physical exam, annual 01/21/2024 Assessment & Plan (01/21/2024 2:15 PM EDT): Reviewed screenings with patient. Polyp of colon 10/05/2023 Assessment & Plan (10/05/2023 3:56 PM EDT): Ordering Colon Cancer Screening for recheck. Referring to Recovery Coordinator. Continuous leakage of urine 10/05/2023 Assessment & Plan (10/15/2023 8:42 AM EDT): Feliciano Coronado requires diapers given a history of urinary incontinence, he has had appropriate workup, treatment and referrals to evaluate for potential reversible factors contributing to his incontinence with partial/incomplete resolution of symptoms. Patient can use pullup diapers The patient has the following risk factors for developing incontinence history of prostate surgery & increasing age, Prior referrals: Urology Test results: sp prostate surgery sp CA Renal failure 09/27/2023 Transaminitis 09/27/2023 Chronic midline low back pain without sciatica 0 08/15/2023 Assessment & Plan (08/15/2023 8:16 PM EDT): Patient followed by chiropractor, requesting new lumbar xray, will place order Hepatic steatosis 07/24/2023 Stage 3a chronic kidney disease 02/12/2023 Reactive depression 08/26/2019 Type 2 diabetes mellitus wit hout 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, with long-term current use of insulin 03/05/2018 Assessment & Plan (01/21/2024 12:12 PM EDT): Increasing Trulicity to 1.5 mg. Continue to monitor glucose at home, and follow up with nurse ( bring sensor with written glucose readings). Assessment & Plan (11/05/2023 4:40 PM EDT): Discussed medications and refills as needed. Increase insulin dosage. F/u in one month. Relevant Medications Continuous Glucose Toll Operator (Freestyle Marlen 2 Tyler) device Continuous Glucose Toll Operator (Freestyle Marlen 2 Sensor) misc Insulin glargine ( Lantus SoloStar) 100 Unit/ml pen Assessment & Plan (10/15/2023 4:09 PM EDT): Discussed medications as needed. Continue monitoring blood glucose at home. Advised beginning Trulicity again for additional treatment of DM. Discussed vaccinations due, agreed to administer PCV-20 and RSV. HEP B Vaccine to be administered at a later date. This patient has diabetes and uses insulin as part of his diabetes treatment plan. For his safety, I have advised this patient to check his blood glucose level at least four times daily, including before meals, before bed, periodically after meals, if he believes he might be experiencing hypoglycemia, or if he is ill. As part of his comprehensive diabetes treatment plan, in order to help him lower his HbA1c to target and/or maintain his HbA1c at target, to alert him to and to detect hypoglycemia, and/or to reduce hypoglycemia. Being able to use a continuous glucose monitoring system will therefore help increase their short term and long-term safety. ).This patient has been using and benefiting from using a continuous glucose monitoring system, he should be allowed to continue to do so., Assessment & Plan (09/21/2023 1:55 PM EDT): Continue on current medications. Ordered lab work for further monitoring of DM. Discussed refills as needed. Assessment & Plan (08/15/2023 7:54 PM EDT): On lantus 60 units, novolog 6 TID, and metformin 1000mg BID, no episode of hypoglycemia reported. Vasovagal syncope 03/05/2018 Mixed hyperlipidemia 05/10/2017 Hypothyroidism (acquired) 04/10/2017 Erectile dysfunction following radical prostatec jonathan 11/25/2015 Prostate cancer 11/25/2015 Assessment & Plan (09/21/2023 1:54 PM EDT): Referral to Urologist for further monitoring and treatment. Obstructive sleep apnea syndrome 08/18/2015 Essential hypertension 06/16/2015 Assessment & Plan (08/15/2023 7:52 PM EDT): Elevated, he is on losartan 100mg, amlodipine 10mg, chlorthalidone 25mg, he is off losartan and amlodipine, will send medication to [facility] pharmacy. Also he does not have a bp monitor at home, will send one, follow up with pcp in 2-3 months Resolved Problems Problem Noted Date Diagnosed Date Resolved Date Community acquired pneumonia 08/26/2019 09/21/2023 Encounters Date Type Department Care Team Description 07/14/2024 Telephone [facility] [address] [place] [address] Brea Maciel MD Prior Authorization 07/09/2024 8:45 AM EST Office Visit [facility] [address] [place] [address] Santosh Walker MD Type 2 diabetes mellitus without 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, with long-term current use of insulin ([facility]) (Primary Dx); Chronic midline low back pain without sciatica; Dietary counseling; Exercise counseling; Mixed hyperlipidemia; Essential hypertension 07/09/2024 Travel 07/02/2024 Patient Outreach [facility] [address] [place] [address] Brea Maciel MD Care Coordination (CHW outreach for SDOH PT-1 and food needs-referral completed /) 07/02/2024 Patient Outreach [facility] [address] [place] [address] Brea Maciel MD Pre-visit Planning (SDOH positive, Tobacco screening negative.) 06/17/2024 Telephone [facility] [address] [place] [phone] Brea Maciel MD FYI 06/02/2024 Telephone [facility] [address] [place] [phone] Brea Maciel MD Reschedule 05/23/2024 Patient Outreach [facility] [address] [place] [phone] Brea Maciel MD Pre-visit Planning (SDOH was completed on 09/12/2023) 05/20/2024 Refill [facility] [address] [place] [phone] Brea Maciel MD 05/20/2024 Refill [facility] [address] [place] [phone] Brea Maciel MD 05/07/2024 [facility] [address] [place] [phone] Hoa Noe MD 05/06/2024 Telephone [facility] [address] [place] [phone] Brea Maciel MD Referral 05/05/2024 Refill [facility] [address] [place] [phone] Manjinder Tucker MD Psoriasis 05/05/2024 Telephone [facility] [address] [place] [phone] Brea Maciel MD Med Refill 05/01/2024 Refill [facility] [address] [place] [phone] Manjinder Tucker MD Psoriasis 04/28/2024 Refill [facility] [address] [place] [phone] Brea Maciel MD 04/25/2024 Telephone [facility] [address] [place] [phone] Brea Maciel MD 04/21/2024 Telephone [facility] [address] [place] [address] Brea Maciel MD Medication Question 04/18/2024 Orders Only [facility] [address], [place] [phone] Santosh Walker MD 04/16/2024 10:00 AM EST Office Visit [facility] [address], [place] [phone] Santosh Walker MD Type 2 diabetes mellitus without 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, with long-term current use of insulin ([facility]) (Primary Dx); Hospital discharge follow-up; Primary insomnia 04/15/2024 Telephone [facility] [address], [place] [phone] Brea Maciel MD Chart Prep 04/15/2024 Travel from Last 3 Months Immunizations Name Administration Dates Next Due Hep A, Adult 10/05/2023 Influenza injectable quadriv alent IIV4 with preservative 02/24/2018 Pneumococcal Conjugate PCV 20 10/05/2023 Tdap 08/17/2021,03/05/2018 Family History Medical History Relation Name Comments Colon cancer Father Diabetes Mother Hypertension Mother Relation Name Status Comments Father Mother Social History Tobacco Use Types Packs/Day Years Used Date Smoking Tobacco: Former Cigarettes 3 15 0 06/04/1973 - 06/04/1988 Passive Smoke Exposure: Current Smokeless Tobacco: Never Tobacco Cessation:Counseling Given: Not Answered Alcohol Use Standard Drinks/Week Comments Not Currently [...] Sign Reading Time Taken Comments Blood Pressure 132/74 07/09/2024 8:56 AM EST Pulse 78 07/09/2024 8:56 AM EST Temperature 36.3 ??C (97.4 ??F) 07/09/2024 8:56 AM ES T Respiratory Rate 18 07/09/2024 8:56 AM EST Oxygen Saturation 97% 07/09/2024 8:56 AM EST Inhaled Oxygen Concentration - - Weight 68 kg (150 lb) 07/09/2024 8:56 AM EST Height 162.6 cm (5' 4 ) 07/09/2024 8:56 AM EST Body Mass Index 25.75 07/09/2024 8:56 AM EST Plan of Treatment Upcoming Encounters Date Type Department Care Team (Late st Contact Info) Description 08/19/2024 1:15 PM EDT Office Visit [facility] [address], [place] [phone] Santosh Walker MD [address] [place], [place] [phone] Health Maintenance Due Date Last Done Comments CT Colonography 1956 Colonoscopy 1956 Colorectal Cancer Screening 1956 Dental Oral Exam 1956 Dental Prophylaxis 1956 Dental X-Ray: Bitewings 1956 FIT DNA/Cologuard 1956 FIT 1956 FOBT 1956 Sigmoidoscopy 1956 Eye Exam 02/06/1966 Zoster Vaccines (1 of 2) 02/06/2006 Hepatitis B Vaccines (1 of 3 - Risk 3-dose series) 2016 RSV Patients and Patients Aged 60 years or older (1 - Risk 60-74 years 1-dose series) 2016 COVID-19 Vaccine ( - season) 2024 Influenza Vaccine (#1) 2024 02/24/2018 Hepatitis A Vaccines (2 of 2 - Risk 2-dose series) 04/06/2024 10/05/2023 Lipid Panel 09/23/2024 09/24/2023 Diabetes: Urine Protein Screening 09/30/2024 10/01/2023, 02/12/2023 Diabetes: Foot Exam 10/04/2024 10/05/2023, 10/05/2023, 10/05/2023, Additional history exists Diabetes: Hemoglobin A1C 10/06/2024 025, 04/16/2024, 01/21/2024, Additional history exists Alcohol/Substance Use Screening 04/16/2025 04/16/2024 Tobacco Screening 04/16/2025 04/16/2024 SDOH Screening 07/02/2025 07/02/2024 Depression Screening 07/09/2025 07/09/2024, 07/09/19 Dental X-Ray: Full Mouth 12/27/2026 12/27/2023 DTaP/Tdap/Td Vaccines (3 - Td or Tdap) 08/18/2031 08/17/2021, 03/05/2018 Hepatitis C Screening Completed 09/24/2023 Pneumococcal Vaccine: 50+ Years Completed 10/05/2023 HIB [...] patient's age to complete this topic RSV under 20 months Aged Out No longe r eligible based on patient's age to complete this topic Rotavirus Vaccines Aged Out No longer eligible based on patient's age to complete this topic Procedures Procedure Name Priority Date/Time Associated Diagnosis Comments POCT GLYCATED HEMOGLOBIN, TOTAL Routine 07/09/2024 9:15 AM EST Type 2 diabetes mellitus without 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, with long-term current use of insulin (CMS/HCC) POCT GLUCOSE Routine 07/09/2024 9:14 AM EST Type 2 diabetes mellitus without 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, with long-term current use of insulin (CMS/HCC) CT SOFT TISSUE NECK W CONTRAST Routine 06/12/2024 1:02 PM EST COMPREHENSIVE METABOLIC PANEL Routine 04/16/2024 11:32 AM EST Type 2 diabetes mellitus without 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, with long-term current use of insulin (CMS/HCC) POCT GLYCATED HEMOGLOBIN, TOTAL Routine 04/16/2024 10:30 AM EST Type 2 diabetes mellitus without 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, with long-term current use of insulin (CMS/HCC) POCT GLUCOSE Routine 04/16/2024 10:28 AM EST Type 2 diabetes mellitus without 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, with long-term current use of insulin (CMS/HCC) PANORAMIC RADIOGRAPHIC IMAGE Routine 12/27/2023 9:00 AM EDT PROTEIN CREATININE RATIO, URINE Routine 10/01/2023 8:20 AM EDT Renal failure, unspecified chronicity HEPATITIS C AB W/REFL TO HCV RNA, QN, PCR Routine 09/24/2023 8:28 AM EDT Encounter for health-related screening LIPID PANEL, STANDARD Routine 09/24/2023 8:28 AM EDT Type 2 diabetes mellitus without 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, with long-term current use of insulin (CMS/HCC) from Last 3 Months or Most Recently Relevant to Health Maintenance Results * (ABNORMAL) POCT HGB A1C (07/09/2024 9:15 AM EST) Only the most recent of2 resultswithin the time period is included. Pathologist [facility] Hemoglobin A1C 8.3(A) 4.0 - 6.0 % QC Media Lot # [id number] Lot# Expiration Date ,026 Blood 07/09/2024 9:15 AM EST Santosh Reyes MD POINT OF CARE TEST ENTER/EDIT ORDERABLES Final Result * POCT Glucose (07/09/2024 9:14 AM EST) Only the most recent of2 resultswithin the time period is included. [facility] Glucose Blood, POC 161 60 - 200 mg/dL QC Media Lot # [id number] Lot# Expiration Date 482,025 Blood Capillary blood specimen / Unknown 07/09/2024 9:14 AM EST Santosh Reyes MD POINT OF CARE TEST ENTER/EDIT ORDERABLES Final Result * CT SOFT TISSUE NECK W CONTRAST (06/12/2024 1:02 PM EST) Anatomical Region Laterality Modality Computed Tomogra phy Historical Provider IMG CT PROCEDURES Edited Result - Final * (ABNORMAL) Comprehensive Metabolic Panel (04/16/2024 11:32 AM EST) Pathologist [facility] Sodium 134(L) 135 - 145 mmol/L [facility] Potassium 4.1 3.3 - 5.1 mmol/L [facility] Chloride 101 96 - 108 mmol/L [facility] Carbon Dioxide 22 22 - 29 mmol/L [facility] Anion Gap 15 12 - 20 [facility] Urea Nitrogen (BUN) 13 9 - 16 mg/dL [facility] Creatinine, Serum 1.28 0.5 - 1.4 mg/dL [facility] Estimated Glomerular Filt Rate 56 [facility] Comment:Chronic Kidney Disea se: Estimated GFR < 60 mL/min/1.12v0Ibvipz Kidney Disease: Estimated GFR < 15 mL/min/1.73m2 Glucose 285(H) 60 - 115 mg/dL [facility] Calcium 10.2 8.4 - 10.2 mg/dL [facility] Bilirubin, Total 0.6 0.0 - 1.0 mg/dL [facility] Aspartate Amino Transferase 33 5 - 37 U/L [facility] Alanine Aminotransferase 29 0 - 40 U/L [facility] Total Protein 7.6 6.5 - 8.0 g/dL [facility] Albumin Level 3.9 3.5 - 5.0 g/dL [facility] Alkaline Phosphatase 163(H) 39 - 117 U/L [facility] Blood Venous blood specimen / Unknown 04/16/2024 11:32 AM EST 04/16/2024 2:19 PM EST us Santosh Reyes MD LAB BLOOD ORDERABL ES Final Result Performing Organization Address [facility]/ZIP Co de Phone Number [facility] [address] [place] [phone] * Protein Creatinine Ratio, Urine (10/01/2023 8:20 AM EDT) Creatinine, Urine 43.57 mg/dL [facility] Protein, Total, Random Urine <7 <12 mg/dL [facility] Protein/Creatin ine Ratio, Ur TNP <0.2 [facility] Comment:Unable to calculate urine protein creatinine ratio due tolow creatinine or protein result. 10/01/2023 8:20 AM EDT 10/01/2023 2:00 PM EDT us Brea Maciel MD LAB URINE ORDERABLES Final Re sult Performing Organization Address City/[facility]/ZIP Co de Phone Number [facility] [address] [place] [address] [phone] * Hepatitis C Antibody with Reflex to HCV, RNA, Quantitative, Real-Time PCR (09/24/2023 8:28 AM EDT) Hepatitis C Antibody Nonreactive Nonreactive [facility] Comment:Antibodies to HCV no t detected; does not exclude early acuteHCV infection. Blood Venous blood specimen / Unknown 09/24/2023 8:28 AM EDT 09/24/2023 2:45 PM EDT us Brea Maciel MD LAB BLOOD ORDERABLES Final Re sult [facility] [address] [place] [phone] * Lipid Panel, Standard (09/24/2023 8:28 AM EDT) Triglycerides 104 <150 mg/dL [facility] Comment:Desirable Triglyceri de: less than 150 mg/dLBorderline High Triglyceride 150-199 mg/dLHigh Triglyceride: 200-499 mg/dLVery High Triglyceride: greater than or equal to 5OO mg/dL Cholesterol 157 <200 mg/dL [facility] Comment:Desirable Cholestero l: less than 200 mg/dLBorderline High Cholesterol: 200-239 mg/dLHigh Cholesterol: greater than 239 mg/dL LDL Cholesterol Calculated 78 <100 mg/dL [facility] Comment:Desirable LDL: less than 100 mg/dLNear Optimal/Above Optimal LDL: 110- 129 mg/dLBorderline High LDL: 130-159 mg/dLHigh LDL: 160-189 mg/dLVery High LDL: greater than or equal to 190 mg/dL HDL Cholesterol 59 >40 mg/dL [facility] Comment:Desirable HDL: great er than 40 mg/dL Note: This HDL assay may give artificially low results in patients with liver disease. Blood Venous blood specimen / Unknown 09/24/2023 8:28 AM EDT 09/24/2023 2:45 PM EDT us Brea Maciel MD LAB BLOOD ORDERABLES Final Re sult [facility] [address] [place] [address] [phone] from Last 3 Months or Most Recently Relevant to Health Maintenance Insurance [facility] - SCO DENTAL - [facility] Care Teams Engraver Tender Relationship Specialty Start Date End Date Brea Maciel MD [address] [place] [phone] PCP - General Family Medicine 09/21/23
--- OUTSIDE RECORDS SUMMARY | 2024-07-14 15:29 | XMS_ITS | Encounter Summary ---
Author Organization [employer] Address [address] [facility] 7 [place] [address] Care Team Providers Care Rn Social Services Name Role Phone Brea Maciel MD Primary Care Provider [phone] Reason for Referral * Medications - Closed Specialty Diagnoses / Procedures Referred By Contac t Referred To Contact Diagnoses Chronic midline low back pain without sciatica Santosh Walker MD [address] [place] [address] Phone: tel: fax: Referral ID Status Reason Start Date Expiration Date Visits Re quested Visits Authorized [id number] Closed 07/09/2024 07/09/2025 1 1 Encounter Details Date Type Department Care Team (Late st Contact Info) Description 07/09/2024 8:45 AM EST Office Visit [facility] CHC MED & PEDS [address] [place] [address] Santosh Walker MD [address] [place] [address] Type 2 diabetes mellitus without 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, with long-term current use of insulin ([facility]) (Primary Dx); Chronic midline low back pain without sciatica; Dietary counseling; Exercise counseling; Mixed hyperlipidemia; Essential hypertension Social History Tobacco Use Types Packs/Day Years [...] Mass Index 25.75 07/09/2024 8:56 AM EST documented in this encounter Progress Notes * Santosh Reyes MD - 07/09/2024 8:45 AM EST Subjective Patient ID: Feliciano Coronado is a 69 y.o. male who presents for No chief complaint on file.. Diabetes He presents for his follow-up diabetic visit. He has type 2 diabetes mellitus. His disease course has been stable. Pertinent negatives for diabetes include no fatigue, no foot paresthesias, no polydipsia, no polyphagia and no polyuria. Review of Systems Constitutional: Negative for fatigue. Endocrine: Negative for polydipsia, polyphagia and polyuria. Objective Physical Exam Constitutional: Appearance: Normal appearance. Cardiovascular: Rate and Rhythm: Normal rate and regular rhythm. Heart sounds: No murmur heard. Pulmonary: Effort: Pulmonary effort is normal. No respiratory distress. Breath sounds: No stridor. No wheezing or rhonchi. Neurological: General: No focal deficit present. Mental Status: He is alert and oriented to person, place, and time. Psychiatric: Mood and Affect: Mood normal. Behavior: Behavior normal. Assessment/Plan Problem List Items Addressed This Visit Essential hypertension Controlled, keep low sodium diet, keep bp log Mixed hyperlipidemia On statin therapy, labs done on 03/27 were stable, no changes will be made Type 2 diabetes mellitus without 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, with long-term current use of insulin ([facility]) - Primary (Chronic) Patient having episode of hypoglycemia during the day, told to decrease short acting insulin, follow up in 1 month Relevant Orders POCT Glucose (Completed) POCT HGB A1C (Completed) Chronic midline low back pain without sciatica Relevant Medications lidocaine (Lidoderm) 5 % patch Other Visit Diagnoses Dietary counseling Exercise counseling documented in this encounter Plan of Treatment Upcoming Encounters Date Type Department Care Team (Late st Contact Info) Description 08/19/2024 1:15 PM EDT Office Visit [facility]EDS [address] [place], [place] [phone] Santosh Walker MD [address] [place] [address] documented as of this encounter Procedures Procedure Name Priority Date/Time Associated Diagnosis Comments POCT GLYCATED HEMOGLOBIN, TOTAL Routine 07/09/2024 9:15 AM EST Type 2 diabetes mellitus without 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, with long-term current use of insulin ([facility]) POCT GLUCOSE Routine 07/09/2024 9:14 AM EST Type 2 diabetes mellitus without 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, with long-term current use of insulin ([facility]) documented in this encounter Results * (ABNORMAL) POCT HGB A1C (07/09/2024 9:15 AM EST) Hemoglobin A1C 8.3(A) 4.0 - 6.0 % QC Media Lot # [id number] Lot# Expiration Date Blood 07/09/2024 9:15 AM EST Santosh Reyes MD POINT OF CARE TEST ENTER/EDIT ORDERABLES Final Result * POCT Glucose (07/09/2024 9:14 AM EST) Glucose Blood, POC 161 60 - 200 mg/dL QC Media Lot # [id number] Lot# Expiration Date [id number] Blood Capillary blood specimen / Unknown 07/09/2024 9:14 AM EST Santosh Reyes MD POINT OF CARE TEST ENTER/EDIT ORDERABLES Final Result documented in this encounter Visit Diagnoses Diagnosis Type 2 diabetes mellitus without 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, with long-term current use of insulin ([facility])- Primary Chronic midline low back pain without sciatica Dietary counseling Dietary surveillance and counseling Exercise counseling Mixed hyperlipidemia Essential hypertension Unspecified essential hypertension documented in this encounter Additional Health Concerns Assessment Noted Time PHQ-9 Depression Total Score: 0 07/09/19 25 8:57 AM EST documented as of this encounter Care Teams Rn Social Services Relationship Specialty Start Date End Date Brea Maciel MD [address] [place] [address] PCP - General Family Medicine 09/21/23 documented as of this encounter
--- OUTSIDE RECORDS SUMMARY | 2024-07-14 15:29 | XMS_ITS | Encounter Summary ---
Author Organization [facility] Address [address] [place] [address] Care Team Providers Care Gas Plumbing Inspector Name Role Phone Laura Hogue APRN Primary Care Provider Apple Villatoro DO Unavailable [phone] Encounter Details Date Type Department Care Team (Late st Contact Info) Description 08/31/2022 Scanned Document [facility] [place] [address] [place] [address] [address] [phone] Laura Hogue APRN [address] [place], [place] [phone] Social History Tobacco Use Types Packs/Day Years [...] documented as of this encounter Care Teams Gas Plumbing Inspector Relationship Specialty Start Date End Date Laura Hogue APRN [address] [place] [address] PCP - General Family Medicine 09/04/19 Apple Villatoro DO [address] [place] [address] Staking Press Operator Cardiovascular Disease 04/12/23 documented as of this encounter
--- OUTSIDE RECORDS SUMMARY | 2024-07-14 15:29 | XMS_ITS | Encounter Summary ---
Author Organization [employer] Address 75 [facility] 7t [place] [address] Care Team Providers Care Health Science Instructor Name Role Phone Brea Maciel MD Primary Care Provider [phone] Encounter Details Date Type Department Care Team ([facility] st Contact Info) Description 05/07/2024 Orders Only [facility] [address] [place] [address] Provider, MD Hoa Social History Tobacco Use Types Packs/Day Years [...] Description 08/19/2024 1:15 PM EDT Office Visit [facility] MED & PEDS [address] [place], [place] [phone] ArroyoSantosh Richardson MD [address] [place], [place] [phone] documented as of this encounter Procedures Procedure Name Priority Date/Time Associated Diagnosis Comments CT SOFT TISSUE NECK W CONTRAST Routine 06/12/2024 1:02 PM EST documented in this encounter Results * CT SOFT TISSUE NECK W CONTRAST (06/12/2024 1:02 PM EST) Anatomical Region Laterality Modality Computed Tomogra phy us Historical Provider MD VIDAL CT PROCEDURES Edited Result - Final documented in this encounter Visit Diagnoses Not on filedocumented in this encounter Additional Health Concerns Assessment Noted Time PHQ-9 Depression Total Score: 10 024 11:21 AM EDT documented as of this encounter Care Teams Health Science Instructor Relationship Specialty Start Date End Date Brea Maciel MD [address] [place] [address] PCP - General Family Medicine 09/21/23 documented as of this encounter
--- OUTSIDE RECORDS SUMMARY | 2024-07-14 15:29 | XMS_ITS | Encounter Summary ---
Author Organization [facility] Address [address] [place] [address] Care Team Providers Care Administrative Library Assistant Name Role Phone Laura Hogue APRN Primary Care Provider Apple Villatoro DO Unavailable [phone] Encounter Details Date Type Department Care Team (Late st Contact Info) Description 03/08/2023 Scanned Document [address] [place] [phone] Provider, Generic Social History Tobacco Use Types [...] on filedocumented in this encounter Care Teams Administrative Library Assistant Relationship Specialty Start Date End Date Laura Hogue APRN [address] [place] [address] PCP - General Family Medicine 09/04/19 Apple Villatoro DO [address] [place] [address] Abalone Fisherman Cardiovascular Disease 04/12/23 documented as of this encounter
--- OUTSIDE RECORDS SUMMARY | 2024-07-14 15:29 | XMS_ITS | Encounter Summary ---
Author Organization [employer] Address [address] [facility] [address] [place] [address] Care Team Providers Care Weekend Receptionist Name Role Phone Brea Maciel MD Primary Care Provider [phone] Reason for Visit * Reason Onset Date Comments medication 01/10/2024 Encounter Details Date Type Department Care Team ([facility] st Contact Info) Description 01/10/2024 Telephone [facility] ADULT DENTAL [address] [place] [address] Enrique Soria, DMD [address] [place] [address] medication Social History Tobacco Use Types Packs/Day Years Used Date Smoking Tobacco: Former Cigarettes 3 15 0 06/04/1973 - 06/04/1988 Passive Smoke Exposure: Current Smokeless Tobacco: Never Alcohol Use Standard Drinks/Week Comments Not Currently 0 (1 standard drink = 0.6 oz pur e alcohol) Housing Stability Answer Date Recorded What is [...] off services in your home? No 09/12/2023 Sex and Gender Information Value Date Recorded [...] encounter Miscellaneous Notes * Telephone Encounter - Consuelo Montana - 01/10/2024 12:46 PM EDT Estella Palacios patient Adding Dr. Zimmerman as referring provider and because Dr. Soria is not here today DR Patient called in earlier today because he is in pain from biopsy that was done and follow up visit. Dr. Soria is not here today. He would like a script for pain to be sent to pharmacy. Can you help patient?? * Telephone Encounter - Meredith Sánchez - 01/10/2024 10:17 AM EDT [facility] Harrisaraceli Coronado is a 68 y.o. year old male.CALLED TODAY SAYING U DIGINOSE HIM WITH CANCER .YESTERDAY AND HIS IN A LOT OF PAIN.CAN YOU SEND HIM SOMETHING FOR PAIN SHARIF Kumar . documented in this encounter Plan of Treatment Upcoming Encounters Date Type Department Care Team (Late st Contact Info) Description 08/19/2024 1:15 PM EDT Office Visit [facility] CHC MED & PEDS [address] [place] [address] Santosh Walker MD [address] [place] [address] documented as of this encounter Visit Diagnoses Not on filedocumented in this encounter Care Teams Weekend Receptionist Relationship Specialty Start Date End Date Brea Maciel MD [address] [place] [address] PCP - General Family Medicine 09/21/23 documented as of this encounter
--- OUTSIDE RECORDS SUMMARY | 2024-07-14 15:29 | XMS_ITS | Encounter Summary ---
Author Organization [facility] Address [address] [place] [address] Care Team Providers Care Log Processor Operator Name Role Phone Lennie Laura ESTRADA Primary Care Provider Apple Villatoro DO Unavailable [phone] Encounter Details Date Type Department Care Team (Late st Contact Info) Description 08/31/2022 Scanned Document [facility] [address] [facility] [address] [place] [phone] Shabnam Merrill MD [address] [place] [address] Social History Tobacco Use Types Packs/Day Years [...] documented as of this encounter Care Teams Log Processor Operator Relationship Specialty Start Date End Date Laura Hogue APRN [address] [place] [address] PCP - General Family Medicine 09/04/19 Apple Villatoro DO [address] [place] [address] Donor Relations Manager Cardiovascular Disease 04/12/23 documented as of this encounter
--- OUTSIDE RECORDS SUMMARY | 2024-07-14 15:29 | XMS_ITS | Encounter Summary ---
Author Organization [employer] Address [address] [facility] [address] 7t [place] [address] Care Team Providers Care Transportation Aide Name Role Phone Brea Maciel MD Primary Care Provider [phone] Reason for Visit * Reason Onset Date Comments Reschedule 06/02/2024 Encounter Details Date Type Department Care Team ([facility] Contact Info) Description 06/02/2024 Telephone [facility] MEDICINE [address] [place] [address] Brea Maciel MD [address] [place] [address] Reschedule Social History Tobacco Use Types Packs/Day Years [...] encounter Miscellaneous Notes * Telephone Encounter - Jyothi Augustine - 06/02/2024 1:08 PM EST Tc from pt requesting a call back to reschedule 06/02 appt. documented in this encounter Plan of Treatment Upcoming Encounters Date Type Department Care Team ([facility] st Contact Info) Description 08/19/2024 1:15 PM EDT Office Visit [facility] MED & PEDS [address] [place] [address] Santosh Walker MD [address] [place] [address] documented as of this encounter Visit Diagnoses Not on filedocumented in this encounter Additional Health Concerns Assessment Noted Time PHQ-9 Depression Total Score: 10 024 11:21 AM EDT documented as of this encounter Care Teams Transportation Aide Relationship Specialty Start Date End Date Brea Maciel MD [address] [place] [address] PCP - General Family Medicine 09/21/23 documented as of this encounter
--- OUTSIDE RECORDS SUMMARY | 2024-07-14 15:29 | XMS_ITS | Encounter Summary ---
Author Organization [employer] Address 75 [facility] 7t [place] [address] Care Team Providers Care Compliance Manager Name Role Phone Brea Maciel MD Primary Care Provider [phone] Reason for Visit * Reason Comments Care Coordination CHW outreach for SDO H PT-1 and food needs-referral completed Encounter Details Date Type Department Care Team (Latest Contact Info) Description 07/02/2024 Patient Outreach [facility] CHC MED & PEDS [address] [place], [place] [phone] Brea Maciel MD [address] [place] [address] Care Coordination (CHW outreach for SDOH PT-1 and food needs-referral completed /) Social History Tobacco Use Types Packs/Day Years [...] as of this encounter Progress Notes * Reese Wheat - 07/02/2024 11:13 AM EST CHW [employer]e Wheat, placed outbound call to patient for assistance with SDOH as a referral was received by the provider. Patient's name and were confirmed. Patient screened positive for the following SDOH food insecurities. CHW referral patient to the local list of pantries in the area for help. PT-1 requested was send out in behalf of patient for futures appt. Patient verbalizes understandin g, and able to agree with plan to follow up. Patient educated on extended clinic hours on Mondays through Wednesdays, and Walk-In Urgent Care Located in [facility]. Patient provided with after-hours line for [facility], , which offer night time triage service and option to transfer to procurement consultant provider if needed. documented in this encounter Plan of Treatment Upcoming Encounters Date Type Department Care Team (Late st Contact Info) Description 08/19/2024 1:15 PM EDT Office Visit [facility] CHC MED & PEDS [address] [place] [address] Santosh Walker MD [address] [place] [address] documented as of this encounter Visit Diagnoses Not on filedocumented in this encounter Additional Health Concerns Assessment Noted Time PHQ-9 Depression Total Score: 10 024 11:21 AM EDT documented as of this encounter Care Teams Compliance Manager Relationship Specialty Start Date End Date Brea Maciel MD [address] [place] [address] PCP - General Family Medicine 09/21/23 documented as of this encounter
--- OUTSIDE RECORDS SUMMARY | 2024-07-14 15:29 | XMS_ITS | Encounter Summary ---
Author Organization [employer] Address [address] [facility] [address] 7t [place] [address] Care Team Providers Care Grants Manager Name Role Phone Brea Maciel MD Primary Care Provider [phone] Encounter Details Date Type Department Care Team ([facility] st Contact Info) Description 02/15/2024 Telephone [facility] MEDICINE [address] [place] [address] Brea Maciel MD [address] [place], [place] [phone] Social History Tobacco Use Types Packs/Day Years [...] Description 08/19/2024 1:15 PM EDT Office Visit [facility] CHC MED & PEDS [address] [place] [address] Santosh Walker MD [address] [place] [address] documented as of this encounter Visit Diagnoses Not on filedocumented in this encounter Additional Health Concerns Assessment Noted Time PHQ-9 Depression Total Score: 10 024 11:21 AM EDT documented as of this encounter Care Teams Grants Manager Relationship Specialty Start Date End Date Brea Maciel MD [address] [place] [address] PCP - General Family Medicine 09/21/23 documented as of this encounter
== END 2024-07-14 14:10 | disposition home or self-care (01) ==
LOC: HO.HHCL 14:09
PROVIDERS: Visit Provider Internal Medicine Nephrology
DX: I12.9 Hypertensive chronic kidney disease with stage 1 through stage 4 chronic kidney disease, or unspecified chronic kidney disease (principal); E11.21 Type 2 diabetes mellitus with diabetic nephropathy; N18.31 Chronic kidney disease, stage 3a; Z79.4 Long term (current) use of insulin; Z96.41 Presence of insulin pump (external) (internal)
CPT/HCPCS: 86335; 99212

== ENCOUNTER 2024-07-14 14:35 | Outpatient (AMB) | payer OTHER, SELFPAY ==
--- NOTE | 2024-07-14 14:48 | HO.NEPHOV ---
Vital Signs 07/14/24 14:49 Height 5 ft 4 in Weight 145 lb 2 oz BMI 24.9 BP 130/70 Blood Pressure Location Lt brachial Position Sitting Pulse 92 Pulse Source Pulse Oximeter Pulse Oximetry (%) 96 Oxygen Delivery Method Room Air Intake Visit Reasons: 1 mnth/ Conf Bicycle Taxi Driver Required: Yes Bicycle Taxi Driver Language: Jailor Services: Bicycle Taxi Driver Present Bicycle Taxi Driver Name: Campbell [id number] Accompanied by: Self / Same As Patient Allergies No Known Allergies Allergy (Verified 07/14/24 14:48) HPI Comments Details: Feliciano was seen in follow up for chronic kidney disease and hypertension. He is a longstanding diabetic and hypertensive. He is known to have proteinuric chronic kidney disease for some time. He recently had diagnosis of head and neck malignancy (throat cancer) and underwent right mandibulectomy, neck exploration, tracheostomy and PEG placement. He monitors his blood sugar which is under good control. He is on multiple antihypertensive medications which is keeping his blood pressure at goal. He does not take any excessive nonsteroidal anti-inflammatories. His proteinuria precedes his recent malignancy. He has seen a water quality assistant in [place] long ago. He never had a renal biopsy. His renal function has been fairly stable. He denies nausea, vomiting, diarrhea, chest pain, shortness of breath, paroxysmal nocturnal dyspnea, orthopnea, pedal edema or orthostatic symptoms. He has no family history of any renal disease. [facility] Medical History (Updated 06/11/24 @ 14:11 by Oleg Willson MD) Hyperlipidemia Anxiety Depression History of prostate cancer Hypothyroidism Psoriasis Type 2 diabetes mellitus without 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, with [place] [facility] current use of insulin pump Chronic kidney disease Diabetes Hypertension Surgical History History of arthroplasty of knee Hx of radical prostatectomy Social History Household Members: None Housing: Apartment Do you presently have visiting nurse or other home services: No Patient Tobacco Use Status: Former Tobacco user Second Hand Smoke Exposure: No Substance Use Type: Marijuana service: No Review of Systems Const All systems reviewed & are unremarkable except as noted in HPI and below Physical Exam Vital Signs: Last Vital Signs Pulse 92 07/14/24 14:49 BP 130/70 07/14/24 14:49 Pulse Ox 96 07/14/24 14:49 Oxygen Delivery Method Room Air 07/14/24 14:49 BMI result Body Mass Index 24.9 Const General: comfortable and no acute distress Orientation/consciousness: patient oriented x3 HEENT Head: Yes normocephalic Mouth: Normal oral and palatal mucosa present Eyes EOM: EOMs intact bilaterally Neck Neck: Yes supple Resp Auscultation: clear to auscultation bilaterally Cardio Jugular venous distension: no JVD Rate: regular rate GI Palpation (GI): Soft to palpation Auscultation: normal bowel sounds General: Yes no CVA tenderness Back/Spine/Pelvis Back: no CVA tenderness Skin General skin exam: no rashes or lesions noted Neuro General: patient oriented x3 and moves all extremities Extrem General: Yes no pedal edema Results Reviewed Nephrology Results: Hgb 12.3 g/dl (14.0-18.0) L 02/28/24 WBC 7.9 X10*3/uL (4.8-10.8) 02/28/24 Plt Count 168 X10*3/uL (160-400) 02/28/24 Sodium 141 mmol/L (135-145) 07/11/24 Potassium 3.7 mmol/L (3.3-5.1) 07/11/24 Chloride 103 mmol/L (96-108) 07/11/24 Carbon Dioxide 28 mmol/L (22-29) 07/11/24 BUN 15 mg/dL (9-16) 07/11/24 Creatinine 1.02 mg/dL (0.5-1.4) 07/11/24 Calcium 9.5 mg/dL (8.4-10.2) 07/11/24 Phosphorus 3.0 mg/dL (2.7-4.5) 07/11/24 PTH Intact 45.0 pg/mL (8.7-77.1) 07/11/24 Assessment & Plan Assessment & Plan (1) Diabetic nephropathy: Code(s): E11.21 - Type 2 diabetes mellitus with diabetic nephropathy Category: Medical Qualifiers: Diabetes mellitus type: type 2 Qualified Code(s): E11.21 - Type 2 diabetes mellitus with diabetic nephropathy (2) Hypertension: Code(s): I10 - Essential (primary) hypertension Category: Medical Qualifiers: Hypertension type: primary hypertension Qualified Code(s): I10 - Essential (primary) hypertension (3) CKD stage 3a, GFR 45-59 ml/min: Code(s): N18.31 - Chronic kidney disease, stage 3a Category: Medical Plan 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 He has H/O proteinuria. His renal functions are very close to his baseline. He had a renal ultrasound in the past which did not show any structural abnormalities of the kidney. He is on multiple antihypertensive medications to keep his blood pressure at goal. He should maintain good hydration. I am considering initiating him on SGLT2 inhibitor with time after reviewing all the evolving data. He is on angiotensin receptor malu. He avoids nonsteroidal anti-inflammatories. I would not make any medication changes today. All these have been explained in great detail. Answered all questions and follow-up appointment given. Orders: Orders Blood Urea Nitrogen 3 Months E11.21 - Type 2 diabetes mellitus with diabetic nephropathy, I10 - Essential (primary) hypertension, N18.31 - Chronic kidney disease, stage 3a Electrolytes 3 Months E11.21 - Type 2 diabetes mellitus with diabetic nephropathy, I10 - Essential (primary) hypertension, N18.31 - Chronic kidney disease, stage 3a Protein Creatinine Ratio, Ur 3 Months E11.21 - Type 2 diabetes mellitus with diabetic nephropathy, I10 - Essential (primary) hypertension, N18.31 - Chronic kidney disease, stage 3a Creatinine 3 Months E11.21 - Type 2 diabetes mellitus with diabetic nephropathy, I10 - Essential (primary) hypertension, N18.31 - Chronic kidney disease, stage 3a Coding Level of Care Code Est Pt Level 4 (19654) Diagnoses Diabetic nephropathy associated with type 2 diabetes mellitus E11.21 Diabetes mellitus type: type 2 Primary hypertension I10 Hypertension type: primary hypertension CKD stage 3a, GFR 45-59 ml/min N18.31
[2024-07-14 14:49] VITALS: BP 130/70; PULSE 92; O2SAT 96; BMI 24.9
--- OUTSIDE RECORDS SUMMARY | 2024-07-14 15:53 | XMS_ITS | Encounter Summary ---
Author Organization [employer] Address [address] [place] [address] Care Team Providers Care Medical Scientific Liaison Name Role Phone Brea Maciel MD Primary Care Provider [phone] Encounter Details Date Type Department Care Team (Latest Contact Info) Description 07/03/2024 12:51 PM EST - 07/03/2024 11:59 PM EST Hospital Encounter [facility] Radiation Oncology [address] [phone] Discharge Disposition: Home or Self Care Social [...] Appointment [facility] Radiation Oncology [address] [phone] Micaela Sandhu NP [address] [place] [address] [place] [address] 08/11/2024 1:30 PM EDT Office Visit [facility] Hematology Oncology [address] [place] [address] Tawana Chang MD [address] [place] [address] documented as of this encounter Procedures Procedure [...] on filedocumented in this encounter Care Teams Medical Scientific Liaison Relationship Specialty Start Date End Date Brea Maciel MD [address] [place] [address] PCP - General 10/08/23 documented as of this encounter
--- OUTSIDE RECORDS SUMMARY | 2024-07-14 15:53 | XMS_ITS | Encounter Summary ---
Author Organization [facility] Address [address] [place] [address] Care Team Providers Care Director Packaging Name Role Phone Jaylene Kong MD Primary Care Provider [phone] Charis Liz PA-C Primary Care Provider [phone] Laura Hogue APRN Primary Care Provider [phone] Apple Villatoro DO Unavailable [phone] Encounter Details Date Type Department Care Team (Late st Contact Info) Description 11/25/2015 Scanned Document [address] [address] Provider, Generic Social History Tobacco [...] documented as of this encounter Care Teams Director Packaging Relationship Specialty Start Date End Date Jaylene Kong MD [address] [place] [address] PCP - General Internal Medicine 09/28/15 04/04/17 Charis Liz PA-C [address] [place] [address] PCP - General 04/05/17 09/03/19 Laura Hogue APRN [address] [place] [address] PCP - General Family Medicine 09/04/19 Apple Villatoro DO [address] [place] [address] Service Desk Analyst Cardiovascular Disease 04/12/23 documented as of this encounter
--- OUTSIDE RECORDS SUMMARY | 2024-07-14 15:53 | XMS_ITS | Clinical Summary ---
Author Organization [facility] Address [address] [place] [address] Care Team Providers Care Printer Technician Name Role Phone Charis Liz Primary Care Provider [phone] William Kaplan MD Unavailable Allergies Active Allergy [...] Information: ?Site ID: [id number] ?Name: [facility] ?Address: [address] [place] [address] ?Director: Roly Huerta M.D.,PhD us Robert Martinez MD [facility] Lin l Result [facility] , [place] from Last 3 Months or Most Recently Relevant to Health Maintenance Insurance [address] [place] [address] MEDICAID [id number] MEDIC[place] PART A & B Care Teams Printer Technician Relationship Specialty Start Date End Date Charis Liz PA [address] [place] [address] PCP - General Internal Medicine 12/11/18 William Kaplan MD [address] [place] [address] PCP - Insurance Payer PCP 02/02/23
--- OUTSIDE RECORDS SUMMARY | 2024-07-14 15:53 | XMS_ITS ---
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 M smoker with a [id number] moderately differentiated SCC of the R mandibular [...] within accepted guidelines, and the oncologist in [place] might not give exactly the same recommendation [...]
--- OUTSIDE RECORDS SUMMARY | 2024-07-14 15:53 | XMS_ITS | Encounter Summary ---
Author Organization [facility] Address [address] [place] [address] Care Team Providers Care Compounder Flavorings Name Role Phone Brea Maciel MD Primary Care Provider [phone] Encounter Details Date Type Department Care Team (Late Contact Info) Description 07/11/2024 1:12 PM EST Hospital Encounter [facility] Radiation Oncology [address] [place] [phone] Social History Tobacco Use Types Packs/Day Years [...] Info) Description 08/06/2024 1:30 PM EST Appointment [facility] Radiation Oncology [address] [place] [phone] Micaela Sandhu NP [address] [place] [address] [address] [place] [address] 08/11/2024 1:30 PM EDT Office Visit [facility] Hematology Oncology [address] [place] [phone] Tawana Chang MD [address] [place] [address] documented as of this encounter Procedures Procedure [...] on filedocumented in this encounter Care Teams Compounder Flavorings Relationship Specialty Start Date End Date Brea Maciel MD [address] [place] [address] PCP - General 10/08/23 documented as of this encounter
--- OUTSIDE RECORDS SUMMARY | 2024-07-14 15:53 | XMS_ITS | Clinical Summary ---
Author Organization [facility] Address [address] [place] [address] Care Team Providers Care Structural Steel Detailer Name Role Phone Pcp, Chester Akbar MD Primary Care Provider [phone] Allergies Active Allergy Reactions Criticality Noted Date [...] Recent Progress Patient-Stated? Author Carry glucose tablets [facility] Kimberlyn Coyle, RN Take Novolog 5-10 minutes before each meal [facility] Kimberlyn Coyle, RN Schedule eye exam [facility] Kimberlyn Coyle, RN Check BG TID before breakfast, lunch and dinner and keep log [facility] Kimberlyn Coyle, RN Care Teams Structural Steel Detailer Relationship Specialty Start Date End Date Pcp, Chester Akbar MD [address] [place] [address] PCP - General Telecom Sales Consultant 08/17/21
--- OUTSIDE RECORDS SUMMARY | 2024-07-14 15:53 | XMS_ITS | Encounter Summary ---
Author Organization [employer] Address [address] [place] [address] Care Team Providers Care Cloth Napping Supervisor Name Role Phone Brea Maciel MD Primary Care Provider [phone] Encounter Details Date Type Department Care Team (Latest Contact Info) Description 07/02/2024 1:08 PM EST - 07/02/2024 11:59 PM EST Hospital Encounter [facility] Radiation Oncology [address] [phone] Discharge Disposition: Home or Self Care Social [...] Info) Description 08/06/2024 1:30 PM EST Appointment [facility] Radiation Oncology [address] [phone] Micaela Sandhu NP [address] [place] [address] [place] [address] 08/11/2024 1:30 PM EDT Office Visit [facility] Hematology Oncology [address] [place] [address] Tawana Chang MD [address] [place] [address] documented as of this encounter Procedures Procedure [...] on filedocumented in this encounter Care Teams Cloth Napping Supervisor Relationship Specialty Start Date End Date Brea Maciel MD [address] [place] [address] PCP - General 10/08/23 documented as of this encounter
--- OUTSIDE RECORDS SUMMARY | 2024-07-14 15:53 | XMS_ITS | Encounter Summary ---
Author Organization [employer] Address [address] [place] [address] Care Team Providers Care Veterinary Parasitologist Name Role Phone Brea Maciel MD Primary Care Provider [phone] Encounter Details Date Type Department Care Team (Latest Contact Info) Description 07/08/2024 1:09 PM EST - 07/08/2024 11:59 PM EST Hospital Encounter [facility] Radiation Oncology [address] [phone] Discharge Disposition: Home or Self Care Social [...] Description 08/06/2024 1:[address] [facility] Radiation Oncology [address] [place] [phone] Micaela Sandhu NP [address] [place] [address] [place] [phone] 08/11/2024 1:30 PM EDT Office Visit [facility] Hematology Oncology [address] [place] [phone] Tawana Chang MD [address] [place] [address] documented as of this encounter Procedures Procedure [...] on filedocumented in this encounter Care Teams Veterinary Parasitologist Relationship Specialty Start Date End Date Brea Maciel MD [address] [place] [address] PCP - General 10/08/23 documented as of this encounter
--- OUTSIDE RECORDS SUMMARY | 2024-07-14 15:53 | XMS_ITS | Encounter Summary ---
Author Organization [employer] Address [address] [place] [address] Care Team Providers Care Hydrometeorology Teacher Name Role Phone Brea Maciel MD Primary Care Provider [phone] Encounter Details Date Type Department Care Team (Latest Contact Info) Description 07/07/2024 12:53 PM EST - 07/07/2024 11:59 PM EST Hospital Encounter [facility] Radiation Oncology [address] [phone] Discharge Disposition: Home or Self Care Social [...] [facility] Radiation Oncology [address] [place] [phone] Micaela Sandhu NP [address] [place] [address] [place] [phone] 08/11/2024 1:30 PM EDT Office Visit [facility] Hematology Oncology [address] [place] [phone] Tawana Chang MD [address] [place] [address] documented as of this encounter Procedures Procedure [...] on filedocumented in this encounter Care Teams Hydrometeorology Teacher Relationship Specialty Start Date End Date Brea Maciel MD [address] [place] [address] PCP - General 10/08/23 documented as of this encounter
--- OUTSIDE RECORDS SUMMARY | 2024-07-14 15:53 | XMS_ITS | Encounter Summary ---
Author Organization [employer] Address [address] [place] [address] Care Team Providers Care Flight Crew Time Clerk Name Role Phone Brea Maciel MD Primary Care Provider [phone] Encounter Details Date Type Department Care Team (Latest Contact Info) Description 06/26/2024 1:00 PM EST - 06/26/2024 11:59 PM EST Hospital Encounter [facility] Radiation Oncology [address] [phone] Discharge Disposition: Home or Self Care Social [...] Description 08/06/2024 1:[address] [facility] Radiation Oncology [address] [phone] Micaela Sandhu NP [address] [place] [address] [address] [place] [phone] 08/11/2024 1:30 PM EDT Office Visit [facility] Hematology Oncology [address] [place] [address] Tawana Chang MD [address] [place] [address] documented as of this encounter Procedures Procedure [...] on filedocumented in this encounter Care Teams Flight Crew Time Clerk Relationship Specialty Start Date End Date Brea Maciel MD [address] [place] [phone] PCP - General 10/08/23 documented as of this encounter
--- OUTSIDE RECORDS SUMMARY | 2024-07-14 15:53 | XMS_ITS | Patient Health Record ---
Author Organization [facility] Address [address] [place] [address] Care Team Providers Care Metal Washing Machine Operator Name Role Phone Иванamerico Laura Primary Care Provider Allergies Allergen (clinical drug ingredient) Drug/Non Drug Allergy documented on EMR Reaction Allergy Type Onset Date Status liraglutide Victoza (uncoded) did not feel right with it Allergy Active lisinopril Lisinopril dry cough Drug Allergy Activ e Reason For Referral No Information Medications Medication SIG (Take, Route, Frequency, Duration) Notes Start Date End Date Status Lantus SoloStar 100 UNIT/ML INJECT 60 UNITS UNDER THE SKIN EVERY DAY Subcutaneous daily for 100 days Please dispensed 4 boxes Active NovoLOG FlexPen 100 UNIT/ML 6 units with meals Subcutaneous tid for 90 days Active Blood Pressure Monitor - as directed external daily/ lifetime/ automatic for 999 days Dx I10 Active Pen [place] 3/16 31G X 5 MM use with insulin subcutaneously daily with lantus. E11.22 for 90 days puerto rican labels please Active Gabapentin 400 MG 1 capsule Orally qhs for 30 day(s) Active Acetaminophen 500 MG 1 tablet as needed Orally every 6 hrs for 7 days 01/19/2023 Active Jardiance 25 MG 1 tablet Orally Once a day for 90 days 07/17/2022 Active Ammonium Lactate 12 % 1 application to affected area Externally Twice a day for 30 days Active NovoFine Plus 32G X 4 MM as directed subcutaneously daily for 30 days 04/06/2021 Active Cyclobenzaprine HCl 10 MG 1 tablet at bedtime as needed Orally Once a day for 7 days 11/09/2022 Active Ambien 5.000 1 tab(s) Orally qhs for 90 days puerto [place]ican labels please Unknown Blood Pressure Kit - as directed externa l daily and as needed for symptoms for 48 weeks Please issue digital monitor for I10 01/11/2018 Unknown Tylenol 8 Hour 650 MG 2 tablets as neede d Orally every 8 hrs 11/09/2022 Active Levothyroxine Sodium 50 MCG TAKE 1 tablet early in morning on empty stomach separate from other medications Orally daily in the morning for 30 days Active Pioglitazone HCl 15 MG 1 tablet Orally O nce a day for 90 days puerto rican labels please 01/09/2020 Active Atorvastatin Calcium 10 MG 1 tablet Orally at bedtime (once a day) for 90 days puerto [place]ican labels please Active Metoprolol Succinate ER 25 MG 1 tablet Orally Once a day 05/05/2019 Active OneTouch Delica Lancets 33G - as directed intradermal TID/lifetime for 90 days 07/28/2022 Active OneTouch Ultra 2 w/Device as directed in vitro TID/lifetime for 999 days 07/28/2022 Active OneTouch Ultra - as directed In Vitro TID/lifetime for 90 days 07/28/2022 Active Voltaren 1 % as directed Externally bid prn for 30 days 07/29/2022 Active FreeStyle Marlen 2 Sensor - as directed intradermally daily for 90 days 10/28/2021 Active metFORMIN HCl 850 MG 1 tablet with a mel l Orally twice a day for 90 days puerto [place]ican labels please Active FreeStyle Marlen 2 [place] - 1 PER YEAR for 1 Active amLODIPine Besylate 10 MG 1 tablet Orally daily for 90 days Active Pantoprazole Sodium 40 MG 1 tablet Orally Once a day for 30 day(s) 08/29/2021 Active Losartan Potassium 100 MG as directed Orally daily for 90 days puerto rican labels please 02/24/2019 Active Glucometer 1 as directed intradermal tid qac for 999 days 07/17/2022 Active Chlorthalidone 25 mg 1 tablet in the morning with food Orally Once a day for 90 days [place]ican labels please Active Sertraline HCl 100 MG 1.5 tablets Orally Once a day for 90 days Active Immunizations Vaccine Route Administration Date Status Comme nts COVID-19 Vaccine(Moderna) 1st dose IM Intramuscular 09/14/2020 Administered [facility] fact sheet given COVID-19 Vaccine(Moderna) 2nd dose IM Intramuscular 10/14/2020 Administered Fluarix Quadrivalent IM Intramuscular 03/10/2019 Administe red JU[place]IE[place] well. No adverse reaction oted. Fluarix Quadrivalent IM Intramuscular 03/01/2020 Administe red Influenza (split), 3 yrs and above Unknown 05/05/2010 Administered ([facility])Status:Com pleted Influenza (split), 3 yrs and above Unknown 06/09/2010 Administered ([facility])Status:Com pleted Novel [id number], all formulations Unknown 05/14/2009 Administered ([facility])Status:Com pleted Tdap Unknown 12/01/2010 Administered ([facility])Status: Com pleted Social History Tobacco Use: Social History Observation Description Date Details (start date - stop date) Never Smoker NA - NA Sex Assigned At : Social History Observation Description Sex Assigned At Male * Tobacco Use/Smoking assessment Question Answer Notes Are you a nonsmoker Alcohol Screen (Audit-C) Question Answer Notes Did you have a drink containing alcohol in the p ast year? No Points 0 Interpretation Negative Sexual History Question Answer Notes Had sex in the past 12 months (vaginal, oral, or anal)? No Have you ever had a Sexually transmitted disease ? No DAST - Drug and Alcohol Question Answer Notes Total Score: 0 Interpretation: No problems reported SBIRT Question Answer Notes Patient refused/declined SBIRT screening at this time? No In the past 3 months, how of ten do you have a drink containing alcohol? Never In the past 3 months, how of ten do you have 4 or more drinks on one occasion? Females (and Males 65 and older). In the past 3 months, how often do you have 5 or more drinks on one occasion? Males (younger than 65) Never In the past 12 months, did y ou smoke pot, use another street drug, or use a prescription painkiller, stimulant, or sedative for a non-medical reason? No The cumulative score is 0 A referral is not needed PRAPARE Question Answer Notes What is your current housing situation? I do not have housing (staying with others, in a hotel, in a jail, living outside on the street, on a beach, or in a park) Are you worried about losing your housing? No What is the highest level of school that you have finished? High school diploma or GED What is your current work situation? Otherwise unemployed but not seeking work (ex. 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 Check all that apply Clothing,I do not have problems meeting my needs Has lack of transportation kept you from medical appointments, meetings, work or from getting things needed for daily living? No How often do you see or talk to people that you care about and feel close to? (For example: talking to friends on the phone, visiting friends or family, going to baptism or club meetings) More than 5 times a week How stressed are you? Stress is when someone feels tense, nervous, anxious, or cant sleep at night because their mind is troubled Very much In the past year have you spent more than 2 nights in a row in a correction, jail, custodial center, or juvenile correctional facility? No Are you a refugee? No What country are you from? [place] Do you feel physically and emotionally safe where you currently live? No In the past year, have you been afraid of your partner or ex- partner? No PRAPARE Score: 10 Problems Problem Type SNOMED Code ICD Code Onset Dates Problem Status W/U Status Risk Notes Problem Peripheral circulatory disorder associated with diabetes mellitus (000238351) Type 2 diabetes mellitus with other circulatory 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s (E11.59) 2015 Active confirmed (Migrated)unc ontrolled sugar level over 200 Problem Hyperglycemia due to type 2 diabetes mellitus (137129160257190) Type 2 diabetes mellitus with hyperglycemia (E11.65) Active confirmed Problem Generalized anxiety disorder (78377655) Generalized anxiety disorder (F41.1) Active confirmed Problem 35391815 Other chronic pain (G89.29) Active confirmed Problem Chronic kidney disease due to hypertension (635508936251886) Hypertensive chronic kidney disease with stage 1 through stage 4 chronic kidney disease, or unspecified chronic kidney disease (I12.9) Active confirmed Problem 406415858731712 Primary osteoarthritis, 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) Active confirmed Problem 507309253 Primary osteoarthritis, right hand (M19.041) Active confirmed Problem Pes planus (88057149) Flat foot [pes planus] (acquired), right foot (M21.41) Active confirmed Problem Pes planus (16493496) Flat foot [pes planus] (acquired), left foot (M21.42) Active confirmed Problem 85122852 Cervicalgia (M54.2) Active confirmed C2, C4- per X-ray: C/spine loss of lordosis to Kyphosis Disc deg C7-T1 Spondylosis Problem 639314075 Gastroesophageal reflux disease without esophagitis (K21.9) Active confirmed Problem 146683977 Vertigo (R42) Active confirmed Problem 943574964 Erectile dysfunction, unspecified erectile dysfunction type (N52.9) Active confirmed Problem 4406189 Arthritis (M19.90) Active confirmed Problem 643415103 Elevated liver enzymes (R74.8) Active confirmed Problem Depressive disorder (70581954) Depressive disorder (F32.9) Active confirmed Problem 511166956 History of prostate cancer (Z85.46) Active confirmed Problem 751390227 Hepatic steatosis (K76.0) Active confirmed Problem 55156009464108898 Right wrist tendonitis (M77.8) Active confirmed Problem 513562763113589 Cortical age-related cataract of both eyes (H25.013) Active confirmed Problem 109280515 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) Active confirmed Problem 147023305 Spondylosis of cervical region without myelopathy or radiculopathy (M47.812) Active confirmed Problem Chronic kidney disease stage 3 (382157557) Chronic kidney disease, stage III (moderate) (N18.30) Active confirmed Problem 52185292136277272 Degenerative TFCC tear, right (M24.131) Active confirmed Problem 655486075067 Type 2 diabetes mellitus with diabetic chronic kidney disease (E11.22) Active confirmed High 09/2018, tradjenta removed due to pancreatitis Problem Schizoaffective disorder, depressive type (84751401) Schizoaffective disorder, depressive type (F25.1) Active confirmed med Problem 9963190 Psoriasis (L40.9) Active confirmed med Problem 408126616 intermodal customer service current use of insulin (Z79.4) Active confirmed High Problem 475031216 Nuclear sclerosis of both eyes (H25.13) Active confirmed med Problem Essential hypertension (41634799) Essential (primary) hypertension (I10) Inactive confirmed 3 rechecked manually 01/06/19, just under goal of 140/90.contin ue current medications. Problem 10036624 Balanitis (N48.1) Inactive confirmed Problem 047166263 Chronic kidney disease, stage III (moderate) (N18.3) Inactive confirmed High [place] physican 08/2016 follows [place] : Stage III renal disease. to see renal in 4 months . DM since 2005 and HTn since 2013--told them I follow his Bs and tellme he sees Diabetic center at [facility] Problem Type II diabetes mellitus without 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 (923014713) Encounter for diabetic foot exam (E11.9) Inactive confirmed Problem 25701137 Primary hypertension (I10) Inactive confirmed Problem 44077723 Hypothyroidism, unspecified type (E03.9) Active confirmed Med Problem 95219607 Hyperlipidemia, unspecified hyperlipidemia type (E78.5) Active confirmed med Problem 86418652 Presbyopia of both eyes (H52.4) Active confirmed Low Plan Of Treatment Pending Test Test Name Order Date Ultrasound : Abdomen 09/10/2018 MRI : Wrist, right 07/17/2022 X ray : Bilateral Hands/wrists 2 views 1 06/05/2016 H. pylori Breath Test 07/22/2020 H. pylori Breath Test 01/28/2021 CT ABDOMEN W CONTRAST 12/09/2018 MRI : Lumbar without contrast 08/20/2019 Ultrasound : Abdominal 10/16/2022 Ultrasound : Abdominal 02/10/2022 Erythrocyte Sediment Rate (ESR) 06/12/19 23 Erythrocyte Sediment Rate (ESR) 02/11/20 19 COMPREHENSIVE METABOLIC PANEL 01/28/2021 URIC ACID 02/10/2019 HLA-B27 ANTIGEN 02/10/2019 HEMOGLOBIN A1c 01/28/2021 TSH W/REFLEX TO FT4 01/28/2021 FECAL GLOBIN BY IMMUNOCHEM. (MEDICARE) 0 08/20/2019 ANTINUCLEAR ANTIBODIES TITER AND PATTERN 02/10/2019 EMG Left Arm 04/06/2021 Teleretinal Screening 07/28/2022 Mammogram : Left, Diagnostic Mammogram a nd Ultrasound 08/12/2020 XR ABD SINGLE AP 09/10/2018 XR CHEST 2 VIEWS PA/LAT 09/10/2018 XR LT HAND 2 VIEWS 02/10/2019 XR RT HAND 2 VIEWS 02/10/2019 XR LT SHOULDER 3 VIEW 06/09/2019 XR CERVICAL SP 2/3 VIEWS 06/16/2019 XR L/S SPINE 2/3 VIEWS 06/16/2019 Insurance Providers Payer Name Payer Address Payer Phone Subscriber Number Group Number Insured Name Patient Relationship to Insured Coverage Start Date Coverage End Date [place] - Medicare Replacement Plan [address] [place] [address] [id number] Feliciano Strong Self - patient is the insured [employer] [address] [place], [place] [id number] Feliciano Strong Self - patient is the insured DENTAL Medicaid [place] SECONDARY [address] [place] [address] [id number] Feliciano Strong Self - [facility] the insured [facility] Medicare Plans [address] [place] [address] [id number] Feliciano Strong Self - patient is the insured [place] [address] [address] [place] [address] [phone] [id number] Feliciano Strong Self - patient is the insured Medical (General) History Medical History History ICD Code System:(musculoskeletal) Procedure:Arthr oscopy knee(1976) Migrated:chest pain System:(Cardiovascul ar) Procedure:no pacemaker() Migrated:chest pain System:(Cardiovascul ar) Procedure:no bypass surgery() Migrated:chest pain System:(Cardiovascul ar) Procedure:no angioplasty() Migrated:Cancer, prostate(2009) Procedur e:surgery() Alcohol abuse Sebaceous cyst 706.2 Depressive disorder, not elsewhere class ified 311 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
--- OUTSIDE RECORDS SUMMARY | 2024-07-14 15:53 | XMS_ITS | Encounter Summary ---
Author Organization [employer] Address [address] [facility] [address] [place] [address] Care Team Providers Care Bellows Assembler Name Role Phone Brea Maciel MD Primary Care Provider [phone] Reason for Visit * Reason Comments Pre-visit Planning SDOH positive, Tobac co screening negative. Encounter Details Date Type Department Care Team ([facility] st Contact Info) Description 07/02/2024 Patient Outreach [facility] [address] [place], [place] [phone] Brea Maciel MD [address] [place] [address] Pre-visit Planning (SDOH positive, Tobacco screening negative.) [...] Description 08/19/2024 1:15 PM EDT Office Visit [facility] [address] [place], [place] [phone] Santosh Walker MD [address] [place] [address] documented as of this encounter Visit Diagnoses Not on filedocumented in this encounter Additional Health Concerns Assessment Noted Time PHQ-9 Depression Total Score: 10 024 11:21 AM EDT documented as of this encounter Care Teams Bellows Assembler Relationship Specialty Start Date End Date Brea Maciel MD [address] [place] [address] PCP - General Family Medicine 09/21/23 documented as of this encounter
--- OUTSIDE RECORDS SUMMARY | 2024-07-14 15:53 | XMS_ITS | Encounter Summary ---
Author Organization [employer] Address [address] [place] [address] Care Team Providers Care Director Biomedical Engineering Name Role Phone Brea Maciel MD Primary Care Provider Encounter Details Date Type Department Care Team (Latest Contact Info) Description 07/09/2024 1:22 PM EST - 07/09/2024 11:59 PM EST Hospital Encounter [facility] Radiation Oncology [address] [phone] Discharge Disposition: Home or Self Care Social [...] EST Appointment [facility] Radiation Oncology [address] [place] [phone] Micaela Sandhu NP [address] [place] [address] [place] [phone] 08/11/2024 1:30 PM EDT Office Visit [facility] Hematology Oncology [address] [place] [phone] Tawana Chang MD [address] [place] [address] documented as of this encounter Procedures Procedure [...] filedocumented in this encounter Care Teams Director Biomedical Engineering Relationship Specialty Start Date End Date Brea Maciel MD [address] [place] [address] PCP - General 10/08/23 documented as of this encounter
--- OUTSIDE RECORDS SUMMARY | 2024-07-14 15:53 | XMS_ITS | Clinical Summary ---
Author Organization [facility] Address [address] [place] [address] Phone Care Team Providers Care Barrel Washer Machine Name Role Phone Brea Maciel MD Primary Care Provider [phone] Allergies No known active allergies Medications dulaglutide [...] (04/18/2024): 69 y.o. 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) 07/11/2024 1:12 PM EST Hospital Encounter [facility] Radiation Oncology [address] [place] [phone] 07/10/2024 11:10 AM EST - 07/10/2024 11:59 PM EST Hospital Encounter [facility] Radiation Oncology [address] [place] [phone] Discharge Disposition: Home or Self Care 07/09/2024 1:22 PM EST - 07/09/2024 11:59 PM EST Hospital Encounter [facility] Radiation Oncology [address] [place] [phone] Discharge Disposition: Home or Self Care 07/08/2024 1:09 PM EST - 07/08/2024 11:59 PM EST Hospital Encounter [facility] Radiation Oncology [address] [place] [phone] Discharge Disposition: Home or Self Care 07/08/2024 [facility] Radiation Oncology [address] [place] [phone] Brea Plunkett RN 07/07/2024 12:53 PM EST - 07/07/2024 11:59 PM EST Hospital Encounter [facility] Radiation Oncology [address] [place] [phone] Discharge Disposition: Home or Self Care 07/04/2024 1:50 PM EST - 07/04/2024 11:59 PM EST Hospital Encounter [facility] Radiation Oncology [address] [place] [phone] Leyla Flanagan MD 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) Discharge Disposition: Home or Self Care 07/04/2024 1:00 PM EST - 07/04/2024 11:59 PM EST Hospital Encounter [facility] Radiation Oncology [address] [place] [phone] Discharge Disposition: Home or Self Care 07/03/2024 12:51 PM EST - 07/03/2024 11:59 PM EST Hospital Encounter [facility] Radiation Oncology [address] [place] [phone] Discharge Disposition: Home or Self Care 07/02/2024 1:08 PM EST - 07/02/2024 11:59 PM EST Hospital Encounter [facility] Radiation Oncology [address] [place] [phone] Discharge Disposition: Home or Self Care 07/01/2024 1:07 PM EST - 07/01/2024 11:59 PM EST Hospital Encounter [facility] Radiation Oncology [address] [place] [phone] Discharge Disposition: Home or Self Care 06/30/2024 1:26 PM EST - 06/30/2024 11:59 PM EST Hospital Encounter [facility] Radiation Oncology [address] [place] [phone] Lázaro Campuzano MD Head and neck cancer ([facility]/HCC) (Primary Dx) Discharge Disposition: Home or Self Care 06/30/2024 12:41 PM EST - 06/30/2024 11:59 PM EST Hospital Encounter [facility] Radiation Oncology [address] [place] [phone] Discharge Disposition: Home or Self Care 06/27/2024 1:24 PM EST - 06/27/2024 11:59 PM EST Hospital Encounter [facility] Radiation Oncology [address] [place] [phone] Leyla Flanagan MD Primary squamous cell carcinoma of lower gingiva ([facility]/HCC) (Primary Dx) Discharge Disposition: Home or Self Care 06/27/2024 1:06 PM EST - 06/27/2024 11:59 PM EST Hospital Encounter [facility] Radiation Oncology [address] [place] [phone] Discharge Disposition: Home or Self Care 06/26/2024 1:00 PM EST - 06/26/2024 11:59 PM EST Hospital Encounter [facility] Radiation Oncology [address] [place] [phone] Discharge Disposition: Home or Self Care 06/25/2024 1:03 PM EST - 06/25/2024 11:59 PM EST Hospital Encounter [facility] Radiation Oncology [address] [place] [phone] Discharge Disposition: Home or Self Care 06/24/2024 1:05 PM EST - 06/24/2024 11:59 PM EST Hospital Encounter [facility] Radiation Oncology [address] [place] [phone] Discharge Disposition: Home or Self Care 06/23/2024 1:12 PM EST - 06/23/2024 11:59 PM EST Hospital Encounter [facility] Radiation Oncology [address] [place] [phone] Discharge Disposition: Home or Self Care 06/19/2024 12:41 PM EST - 06/19/2024 11:59 PM EST Hospital Encounter [facility] Radiation Oncology [address] [place] [phone] Discharge Disposition: Home or Self Care 06/18/2024 12:23 PM EST - 06/18/2024 11:59 PM EST Hospital Encounter [facility] Radiation Oncology [address] [place] [phone] Discharge Disposition: Home or Self Care 06/17/2024 1:26 PM EST - 06/17/2024 11:59 PM EST Hospital Encounter [facility] Radiation Oncology [address] [place] [phone] Leyla Flanagan MD 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) Discharge Disposition: Home or Self Care 06/17/2024 12:41 PM EST - 06/17/2024 11:59 PM EST Hospital Encounter [facility] Radiation Oncology [address] [place] [phone] Discharge Disposition: Home or Self Care 06/16/2024 12:40 PM EST - 06/16/2024 11:59 PM EST Hospital Encounter [facility] Radiation Oncology [address] [place] [phone] Discharge Disposition: Home or Self Care 06/16/2024 Telephone [facility] Radiation Oncology [address] [place] [phone] Micaela Sandhu NP 06/13/2024 Telephone [facility] Radiation Oncology [address] [place] [phone] Leyla Flanagan MD 06/12/2024 11:49 AM EST - 06/12/2024 8:11 PM EST Emergency [facility] Emergency [address] [place] [phone] Clem Merrill MD Right facial swelling (Primary Dx); Radiation adverse effect, initial encounter Discharge Disposition: Home or Self Care 06/11/2024 12:36 PM EST - 06/11/2024 11:59 PM EST Hospital Encounter [facility] Radiation Oncology [address] [place] [phone] Discharge Disposition: Home or Self Care 06/10/2024 12:49 PM EST - 06/10/2024 11:59 PM EST Hospital Encounter [facility] Radiation Oncology [address] [place] [phone] Discharge Disposition: Home or Self Care 06/09/2024 12:47 PM EST - 06/09/2024 11:59 PM EST Hospital Encounter [facility] Radiation Oncology [address] [place] [phone] Discharge Disposition: Home or Self Care 06/06/2024 1:50 PM EST - 06/06/2024 11:59 PM EST Hospital Encounter [facility] Radiation Oncology [address] [place] [phone] Leyla Flanagan MD 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) Discharge Disposition: Home or Self Care 06/06/2024 12:37 PM EST - 06/06/2024 11:59 PM EST Hospital Encounter [facility] Radiation Oncology [address] [place] [phone] Discharge Disposition: Home or Self Care 06/05/2024 1:04 PM EST - 06/05/2024 11:59 PM EST Hospital Encounter [facility] Radiation Oncology [address] [place] [phone] Discharge Disposition: Home or Self Care 06/03/2024 12:51 PM EST - 06/03/2024 11:59 PM EST Hospital Encounter [facility] Radiation Oncology [address] [place] [phone] Discharge Disposition: Home or Self Care 06/02/2024 12:32 PM EST - 06/02/2024 11:59 PM EST Hospital Encounter [facility] Radiation Oncology [address] [place] [phone] Discharge Disposition: Home or Self Care 05/30/2024 1:28 PM EST - 05/30/2024 11:59 PM EST Hospital Encounter [facility] Radiation Oncology [address] [place] [phone] Micha Wong MD 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) Discharge Disposition: Home or Self Care 05/26/2024 1:06 PM EST - 05/26/2024 11:59 PM EST Hospital Encounter [facility] Radiation Oncology [address] [place] [phone] Discharge Disposition: Home or Self Care 05/23/2024 12:45 PM EST - 05/23/2024 11:59 PM EST Hospital Encounter [facility] Radiation Oncology [address] [place] [phone] Leyla Flanagan MD 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) Discharge Disposition: Home or Self Care 05/23/2024 12:13 PM EST - 05/23/2024 11:59 PM EST Hospital Encounter [facility] Radiation Oncology [address] [place] [phone] Leyla Flanagan MD Discharge Disposition: Home or Self Care 05/22/2024 7:57 AM EST - 05/22/2024 11:59 PM EST Hospital Encounter [facility] Radiation Oncology [address] [place] [phone] Discharge Disposition: Home or Self Care 05/21/2024 Telephone [facility] Radiation Oncology [address] [place] [phone] Rose Mary Holland RN 05/08/2024 9:00 AM EST - 05/08/2024 11:59 PM EST Hospital Encounter [facility] Radiation Oncology [address] [phone] Leyla Flanagan MD 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) Discharge Disposition: Home or Self Care 05/08/2024 8:15 AM EST - 05/08/2024 11:59 PM EST Hospital Encounter [facility] Radiation Oncology [address] [place] [phone] 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) Discharge Disposition: Home or Self Care 05/07/2024 1:45 PM EST Office Visit [facility] Hematology Oncology [address] [place] [phone] Tawana Chang MD 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) 05/06/2024 9:28 AM EST - 05/06/2024 11:59 PM EST Hospital Encounter [facility] CT Scan [address] [place] [phone] 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) Discharge Disposition: Home or Self Care 04/24/2024 1:45 PM EST - 04/24/2024 11:59 PM EST Hospital Encounter [facility] Radiation Oncology [address] [place] [phone] Leyla Flanagan MD 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); Head and neck cancer (CMS/HCC) Discharge Disposition: Home or Self Care 04/24/2024 1:44 PM EST - 04/24/2024 11:59 PM EST Hospital Encounter [facility] Radiation Oncology [address] [place] [phone] Discharge Disposition: Home or Self Care 04/17/2024 2:00 PM EST Office Visit [facility] Hematology Oncology [address] [place] [phone] Tawana Chang MD Oral cancer (CMS/HCC) 04/14/2024 Telephone [facility] Hematology Oncology [address] [place] [phone] Michael Starks [place] Referred to [...] History Date Comments Hypertension DX:Hypertension Diabetes mellitus ([facility]) DX:D iabetes mellitus ([facility]) Obstructive sleep apnea syndrome 08/18/2015 DX:Obstructive sleep apnea syndrome Arthritis DX:Arthritis Depression DX:Depression Chronic kidney disease DX:Chroni c kidney disease Prostate cancer ([facility]) DX:Pro state cancer ([facility]) Primary insomnia 04/16/2024 Family History Medical History [...] Info) Description 08/06/2024 1:30 PM EST Appointment [facility] Radiation Oncology [address] [phone] Micaela Sandhu NP [address] [place] [address] [address] [place] [phone] 08/11/2024 1:30 PM EDT Office Visit [facility] Hematology Oncology [address] [place] [phone] Tawana Chang MD [address] [place] [address] Health Maintenance Due Date Last Done Comments [...] 1:55 PM EST Physician Radiation Oncology RADIATION ONCJOHAN [...] Performing Organization Address City/[facility]/ZIP Co de Phone Number [facility] RADIATION ONCOLOGY [...] Performing Organization Address City/[facility] Co de Phone Number [facility] RADIATION ONCOLOGY [...] Signed Date: 06/12/2024 16:45 ET Workstation ID: [id number] Transcribed By: Self Edit Transcribed Date: 06/12/2024 16:38 ET Narrative 06/12/2024 4:45 PM EST INDICATION: 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 Scanner: DonorPropeRobert Applebaum MD 64 slice VCT Dose reduction technique: ASIR [...] 90 cc Isovue-370 administeredintravenously without incident. Scanner: DonorPropeRobert Applebaum MD 64 slice VCT Dose reduction technique: ASIR [...] Signed Date: 06/12/2024 16:45 ET Workstation ID: [id number] Transcribed By: Self Edit Transcribed Date: 06/12/2024 16:38 ET us Clem Merrill MD IMG CT PROCEDURES Final Result * Blood culture (06/12/2024 3:39 PM EST) [facility] Culture, Blood No growth at 5 days 06/17/2024 5:01 PM EST [facility] Blood Venous blood specimen / Unknown Venipuncture / Unknown 06/12/2024 3:39 PM EST 06/12/2024 3:49 PM EST us Clem Merrill MD LAB MICROBIOLOGY - GENERAL ORDE RABLES Final Result Performing Organization Address [facility]/ZIP Co de Phone Number [facility] [address] [place] [address], [place] [phone] * Lactate (06/12/2024 3:39 PM EST) [facility] Lactate 0.9 0.4 - 2.0 mmol/L LAB CHEMISTRY METHOD 06/12/2024 4:23 PM EST [facility] Blood Venous blood specimen / Unknown Venipuncture / Unknown 06/12/2024 3:39 PM EST 06/12/2024 3:50 PM EST us Clem Merrill MD LAB BLOOD ORDERABLES Final Resu lt Performing Organization Address City/[facility]/ZIP Co de Phone Number [facility] [address] [place] [address], [place] [phone] * (ABNORMAL) CBC auto differential (06/12/2024 10:58 AM EST) [facility] WBC 6.8 4.8 - 10.8 K/[facility] LAB HEMETOLOGY METHOD 06/12/2024 11:19 AM EST [facility] RBC 5.80(H) 4.50 - 5.50 M/[facility] LAB HEMETOLOGY METHOD 06/12/2024 11:[address] [facility] Hemoglobin 12.8(L) 13.5 - 17.5 g/dL LAB HEMETOLOGY METHOD 06/12/2024 11:[address] [facility] Hematocrit 41.7(L) 42.0 - 54.0 % LAB HEMETOLOGY METHOD 06/12/2024 11:[address] [facility] MCV 72.0(L) 79.0 - 98.0 FL LAB HEMETOLOGY METHOD 06/12/2024 11:[address] [facility] MCH 22.1(L) 27.0 - 32.0 pcg LAB HEMETOLOGY METHOD 06/12/2024 11:[address] [facility] MCHC 30.7(L) 32.0 - 37.0 g/dL LAB HEMETOLOGY METHOD 06/12/2024 11:[address] [facility] RDW 15.2(H) 11.0 - 15.0 % LAB HEMETOLOGY METHOD 06/12/2024 11:[address] [facility] Platelets 257 130 - 400 K/mcL LAB HEMETOLOGY METHOD 06/12/2024 11:[address] [facility] MPV 10.1 7.0 - 11.0 [place] LAB HEMETOLOGY METHOD 06/12/2024 11:[address] [facility] NRBC 0.0 <1.0 % LAB HEMETOLOGY METHOD 06/12/2024 11:[address] [facility] NRBC Absolute 0.00 <0.10 K/mcL LAB HEMETOLOGY METHOD 06/12/2024 11:[address] [facility] Neutrophils Relative 67.3 % LAB HEMETOLOGY METHOD 06/12/2024 11:[address] [facility] Lymphocytes Relative 18.5 % LAB HEMETOLOGY METHOD 06/12/2024 11:[address] [facility] Monocytes Relative 10.1 % LAB HEMETOLOGY METHOD 06/12/2024 11:[address] [facility] Eosinophils Relative 3.1 % LAB HEMETOLOGY METHOD 06/12/2024 11:[address] [facility] Basophils Relative 0.6 % LAB HEMETOLOGY METHOD 06/12/2024 11:[address] [facility] Immature Granulocytes Relative 0.4 % LAB HEMETOLOGY METHOD 06/12/2024 11:[address] [facility] Neutrophils Absolute 4.59 1.50 - 7.00 K/mcL LAB HEMETOLOGY METHOD 06/12/2024 11:[address] [facility] Lymphocytes Absolute 1.26 1.00 - 5.00 K/mcL LAB HEMETOLOGY METHOD 06/12/2024 11:[address] [facility] Monocytes Absolute 0.69 0.20 - 1.00 K/mcL LAB HEMETOLOGY METHOD 06/12/2024 11:[address] [facility] Eosinophils Absolute 0.21 0.00 - 0.50 K/mcL LAB HEMETOLOGY METHOD 06/12/2024 11:[address] [facility] Basophils Absolute 0.04 0.00 - 0.20 K/mcL LAB HEMETOLOGY METHOD 06/12/2024 11:[address] [facility] Immature Granulocytes Absolute 0.03 0.00 - 0.03 K/mcL LAB HEMETOLOGY METHOD 06/12/2024 11:[address] [facility] Blood Venous blood specimen / Unknown Venipuncture / Unknown 06/12/2024 10:58 AM EST 06/12/2024 11:10 AM EST us Clem B Garfield [facility] LAB BLOOD ORDERABLES Final Resu lt [facility] [address] [place] [address], [place] [phone] * (ABNORMAL) Basic metabolic panel (06/12/2024 10:58 AM EST) Sodium 135 133 - 145 mmol/L LAB CHEMISTRY METHOD 06/12/2024 11:[address] [facility] Potassium 4.2 3.5 - 5.5 mmol/L LAB CHEMISTRY METHOD 06/12/2024 11:[address] [facility] Chloride 102 96 - 110 mmol/L LAB CHEMISTRY METHOD 06/12/2024 11:[address] [facility] CO2 28 21 - 32 mmol/L LAB CHEMISTRY METHOD 06/12/2024 11:[address] [facility] Anion Gap 5 3 - 11 LAB CHEMISTRY METHOD 06/12/2024 11:[address] [facility] Glucose 218(H) 70 - 100 mg/dL LAB CHEMISTRY METHOD 06/12/2024 11:[address] [facility] BUN 11 5 - 25 mg/dL LAB CHEMISTRY METHOD 06/12/2024 11:[address] [facility] Creatinine 1.22 0.70 - 1.30 mg/dL LAB CHEMISTRY METHOD 06/12/2024 11:[address] [facility] eGFR 65 >=60 mL/min/1. 73m2 LAB CHEMISTRY METHOD 06/12/2024 11:[address] [facility] Comment:Calculation based on the??Chronic Kidney Disease Epidemiology Collaboration (CKD-EPI) equation refit??without adjustment for race. BUN/Creatinine Ratio 9.0 LAB CHEMISTRY METHOD 06/12/2024 11:[address] [facility] Calcium 9.6 8.5 - 10.5 mg/dL LAB CHEMISTRY METHOD 06/12/2024 11:[address] [facility] Blood Venous blood specimen / Unknown Venipuncture / Unknown 06/12/2024 10:58 AM EST 06/12/2024 11:10 AM EST Clem Merrill MD LAB BLOOD ORDERABLES Final Resu lt LISETH KEEN [place] ([facility] [address] [place] [address], [place] [phone] * Rad Onc Msq Treatment Summary (06/11/2024 [...] Performing Organization Address City/[facility]/ZIP Co de Phone Number [facility] ONCOLOGY [...] Treatment Summary (06/02/2024 1:50 PM EST) Pathologist [facility] Treatment Site Rt lower gum/Bneck [facility] RADIATION [...] ID:[id number] Group ID:[id number] Type:Not on file Address: [place] [address] [address] [address] Care Teams Barrel Washer Machine Relationship Specialty Start Date End Date Brea Maciel MD [address] [place] [phone] [facility] - General 10/08/23
--- OUTSIDE RECORDS SUMMARY | 2024-07-14 15:53 | XMS_ITS | Encounter Summary ---
Author Organization [facility] Address [address] [place] [address] Care Team Providers Care Supervisor Testing Name Role Phone Brea Maciel MD Primary Care Provider [phone] Reason for Visit * Reason Comments OTV Encounter Details Date Type Department Care Team (Latest Contact Info) Description 07/04/2024 1:50 PM EST - 07/04/2024 11:59 PM EST Hospital Encounter [facility] Radiation Oncology [address] [phone] Leyla Flanagan MD [address] [place] [address] Primary squamous cell carcinoma of lower gingiva [...] this encounter Progress Notes * Brea Plunkett, RN - 07/04/2024 1:50 PM EST Accompanied [...] not eating much. Are you seeing a line crew supervisor or speech language pathologist? Yes Does patient [...] tracheostomy, teeth extractions by Dr. Lu at [facility] STAGE: Cancer Staging Primary squamous cell [...] not eating much. Are you seeing a line crew supervisor or speech language pathologist? Yes Does patient [...] Keep flushing feeding tube. Start using feedings. Social Welfare Research Worker consulted. 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
--- OUTSIDE RECORDS SUMMARY | 2024-07-14 15:53 | XMS_ITS | Encounter Summary ---
Author Organization [facility] Address [address] [place] [address] Care Team Providers Care Nascar Driver Name Role Phone Brea Maciel MD Primary Care Provider [phone] Encounter Details Date Type Department Care Team (Latest Contact Info) Description 07/04/2024 1:00 PM EST - 07/04/2024 11:59 PM EST Hospital Encounter [facility] Radiation Oncology [address] [phone] Discharge Disposition: Home or Self Care Social [...] [facility] Radiation Oncology [address] [place] [phone] Micaela Sandhu NP [address] [place] [address] [place] [phone] 08/11/2024 1:30 PM EDT Office Visit [facility] Hematology Oncology [address] [place] [phone] Tawana Chang MD [address] [place] [address] documented as of this encounter Procedures Procedure [...] on filedocumented in this encounter Care Teams Nascar Driver Relationship Specialty Start Date End Date Brea Maciel MD [address] [place] [phone] PCP - General 10/08/23 documented as of this encounter
--- OUTSIDE RECORDS SUMMARY | 2024-07-14 15:53 | XMS_ITS | Encounter Summary ---
Author Organization [employer] Address [address] [facility] [address] [address] 7t [place] [address] Care Team Providers Care Intelligence Clerk Name Role Phone Brea Maciel MD Primary Care Provider [phone] Reason for Visit * Reason Onset Date Comments FYI 06/17/2024 Encounter Details Date Type Department Care Team ([facility] st Contact Info) Description 06/17/2024 Telephone [facility] MEDICINE [address] [place] [address] Brea Maciel MD 505 [place] [address] Social History Tobacco Use Types Packs/Day Years [...] weeks. Contact Ayah for Verbal Order at [phone] documented in this encounter Plan of Treatment Upcoming Encounters Date Type Department Care Team (Late st Contact Info) Description 08/19/2024 1:15 PM EDT Office Visit [facility] CHC MED & PEDS 505 [place] [address] Santosh Walker MD 505 [place] [address] documented as of this encounter Visit Diagnoses Not on filedocumented in this encounter Additional Health Concerns Assessment Noted Time PHQ-9 Depression Total Score: 10 024 11:21 AM EDT documented as of this encounter Care Teams Intelligence Clerk Relationship Specialty Start Date End Date Brea Maciel MD 230 [place] [address] PCP - General Family Medicine 09/21/23 documented as of this encounter
--- OUTSIDE RECORDS SUMMARY | 2024-07-14 15:53 | XMS_ITS | Clinical Summary ---
Author Organization [facility] Address [address] [place] [address] Care Team Providers Care Manager Call Name Role Phone LennieLoriefrances ESTRADA Primary Care Provider [phone] Apple Villatoro DO Unavailable [phone] Allergies Active Allergy Reactions Criticality Noted [...] See Admin Instructions. Active Continuous Blood Gluc Manual Lathe Operator (FreeStyle Marlen 2 [place]) Device 1 PER YEAR Active Continuous Blood Gluc Sensor (FreeStyle Marlen 2 Sensor) [facility] See Admin Instructions. 10/28/2021 Active ibuprofen (MOTRIN) [...] Comprehensive Metabolic Panel (02/28/2023 1:22 PM EDT) [facility] Signature Glucose 409(HH) 65 - 99 mg/dL 02/28/2023 2:17 PM EDT [facility] Comment:Fasting: <100 mg/dL, Non-Fasting: <200 mg/dL (ADA 2005) Blood Urea Nitrogen (BUN) 42(H) 8 - 21 mg/dL 02/28/2023 2:17 PM [facility] Creatinine 1.5(H) 0.5 - 1.3 mg/dL 02/28/2023 2:17 PM [facility] eGFR 51(L) >59 02/28/2023 2:17 PM [facility] Comment:CKD-EPI (2020) in mL /min/1.73 sq meters. Sodium 133(L) 136 - 145 mmol/L 02/28/2023 2:17 PM [facility] Potassium 3.7 3.4 - 5.3 mmol/L 02/28/2023 2:17 PM [facility] Chloride 95(L) 98 - 107 mmol/L 02/28/2023 2:17 PM [facility] CO2 25 22 - 33 mmol/L 02/28/2023 2:17 PM [facility] Calcium 9.7 8.7 - 10.5 mg/dL 02/28/2023 2:17 PM [facility] Alkaline Phosphatase 105 45 - 128 U/L 02/28/2023 2:17 PM [facility] Aspartate Aminotrans (AST) 40 10 - 55 U/L 02/28/2023 2:17 PM [facility] Alanine Aminotrans (ALT) 59(H) 10 - 55 U/L 02/28/2023 2:17 PM [facility] Bilirubin, Total 0.5 0.2 - 1.0 mg/dL 02/28/2023 2:17 PM [facility] Protein, Total 7.7 6.3 - 8.3 g/dL 02/28/2023 2:17 PM [facility] Albumin 4.2 3.4 - 4.8 g/dL 02/28/2023 2:17 PM [facility] BUN/Creatinine Ratio 28(H) 10.0 - 25.0 Ratio 02/28/2023 2:17 PM [facility] Globulin 3.5 1.5 - 3.9 g/dL 02/28/2023 2:17 PM [facility] Albumin/Globulin Ratio 1.2 1.0 - 3.0 Ratio 02/28/2023 2:17 PM [facility] Anion Gap 13 7 - 17 02/28/2023 2:17 PM [facility] Blood specimen (specimen) (Plasma/Serum) 02/28/2023 1:22 PM EDT 02/28/2023 1:48 PM EDT [facility] See Below [facility] [address] [place] [address] * POCT Microalbumin (02/12/2023 10:37 AM EDT) Microalbumin, POC 10.0 MG/L Creatinine Urine, POC 100.0 MG/DL Microalbumin/Cr eat Ratio, POC <30 MG/G Lot Number [id number] Date Night Sitter Pass Pass Urine 02/12/2023 10:3 7 AM [...] report as now presented. Jennifer Monterroso MD [facility] ORDERABLES * Lipid Panel (AM) (03/06/2018 [...] Decision Thoroughly Discussed with: Patient Care Teams Manager Call Relationship Specialty Start Date End Date Laura Hogue APRN [address] [place] [address] PCP - General Family Medicine 09/04/19 Apple Villatoro DO [address] [place] [address] C Java Developer Cardiovascular Disease 04/12/23
--- OUTSIDE RECORDS SUMMARY | 2024-07-14 15:53 | XMS_ITS | Encounter Summary ---
Author Organization [employer] Address [address] [place] [address] Care Team Providers Care Product Technology Scientist Name Role Phone Brea Maciel MD Primary Care Provider Encounter Details Date Type Department Care Team (Latest Contact Info) Description 07/01/2024 1:07 PM EST - 07/01/2024 11:59 PM EST Hospital Encounter [facility] Radiation Oncology [address] [phone] Discharge Disposition: Home or Self Care Social [...] Info) Description 08/06/2024 1:30 PM EST Appointment [facility] Radiation Oncology [address] [phone] Micaela Sandhu NP [address] [place] [address] [place] [address] 08/11/2024 1:30 PM EDT Office Visit [facility] Hematology Oncology [address] [place] [address] Tawana Chang MD 271 [place] [address] documented as of this encounter Procedures Procedure [...] on filedocumented in this encounter Care Teams Product Technology Scientist Relationship Specialty Start Date End Date Brea Maciel MD 34 [place] [address] PCP - General 10/08/23 documented as of this encounter
--- OUTSIDE RECORDS SUMMARY | 2024-07-14 15:53 | XMS_ITS | Encounter Summary ---
Author Organization [employer] Address [address] [place] [address] Care Team Providers Care Customer Complaint Service Supervisor Name Role Phone Brea Maciel MD Primary Care Provider Reason for Visit * Reason Comments OTV Nurse discharge Encounter Details Date Type Department Care Team (Latest Contact Info) Description 07/11/2024 1:50 PM EST Hospital Encounter [facility] Radiation Oncology [address] [phone] Leyla Flanagan MD 271 [place] [address] Primary squamous cell carcinoma of lower gingiva [...] from the original note were not included. [address] [phone] Radiation Oncology Treatment Completion Patient Name: Feliciano Corondao Date of : 1955 Attending Physician: Leyla [...] tracheostomy, teeth extractions by Dr. Lu at [facility] Site Summary: VMAT: Head and neck [...] Completed as planned Treatment Delay: Went to [facility] ER on 06/12/24 due to concern [...] programar loya ibis. Por favor comun??quese al [phone] opcion # 2 ante cualquier pregunta o [...] tracheostomy, teeth extractions by Dr. Lu at [facility] STAGE: Cancer Staging Primary squamous [...] by: sister Marisol and two other people. cash sales audit clerk video #[id number] Subjective: Are you experiencing any fatigue? Yes [...] not eating much. Are you seeing a web publisher or speech language pathologist? Yes Does patient [...] and before bed. Keep flushing feeding tube. Mining Engineering Technologist consulted. Cont MMW for mouth Went to [facility] ER on 06/12/24 due to concern [...] FU Dr. 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
--- OUTSIDE RECORDS SUMMARY | 2024-07-14 15:53 | XMS_ITS | Encounter Summary ---
Author Organization [employer] Address [address] [place] [address] Care Team Providers Care Cloth Tearer Name Role Phone Brea Maciel MD Primary Care Provider [phone] Encounter Details Date Type Department Care Team (Latest Contact Info) Description 07/10/2024 11:10 AM EST - 07/10/2024 11:59 PM EST Hospital Encounter [facility] Radiation Oncology [address] [phone] Discharge Disposition: Home or Self Care Social [...] [facility] Radiation Oncology [address] [place] [phone] Micaela Sandhu NP [address] [place] [address] [place] [phone] 08/11/2024 1:30 PM EDT Office Visit [facility] Hematology Oncology [address] [place] [phone] Tawana Chang MD 271 [place] [address] documented as of this encounter Procedures Procedure [...] filedocumented in this encounter Care Teams Cloth Tearer Relationship Specialty Start Date End Date Brea Maciel MD 34 [place] [address] PCP - General 10/08/23 documented as of this encounter
--- OUTSIDE RECORDS SUMMARY | 2024-07-14 15:53 | XMS_ITS | Encounter Summary ---
Author Organization [employer] Address [address] [place] [address] Care Team Providers Care Feed Preparation Operator Name Role Phone Brea Maciel MD Primary Care Provider [phone] Encounter Details Date Type Department Care Team (Late st Contact Info) Description 07/08/2024 [facility] Radiation Oncology 271 [facility] 2nd [place] [address] Brea Plunkett, ROSIBEL Social History [...] EST Met with pt using in demand stone setter Kenyon # [id number] to teach him how to use/apply hydrogel [...] Info) Description 08/06/2024 1:30 PM EST Appointment [facility] Radiation Oncology [address] [phone] Micaela Sandhu NP [address] [place] [phone] 08/11/2024 1:30 PM EDT Office Visit [facility] Hematology Oncology 271 [place] [phone] Tawana Chang MD 271 [place] [address] documented as of this encounter Visit Diagnoses Not on filedocumented in this encounter Care Teams Feed Preparation Operator Relationship Specialty Start Date End Date Brea Maciel MD 34 [place] [address] PCP - General 10/08/23 documented as of this encounter
--- OUTSIDE RECORDS SUMMARY | 2024-07-14 15:53 | XMS_ITS | Encounter Summary ---
Author Organization [facility] Address [address] [place] [address] Care Team Providers Care Curriculum Developer Name Role Phone Laura Hogue APRN Primary Care Provider Apple Villatoro DO Unavailable [phone] Encounter Details Date Type Department Care Team (Late st Contact Info) Description 03/01/2020 Scanned Document [facility] Colorectal Surgery [place] [address] [place] [phone] Laura Hogue APRN [address] [place], [place] [phone] Social History Tobacco Use Types Packs/Day Years [...] documented as of this encounter Care Teams Curriculum Developer Relationship Specialty Start Date End Date Laura Hogue APRN [address] [place] [address] PCP - General Family Medicine 09/04/19 Apple Villatoro DO [address] [place] [address] Soccer Player Cardiovascular Disease 04/12/23 documented as of this encounter
--- OUTSIDE RECORDS SUMMARY | 2024-07-14 15:53 | XMS_ITS | Encounter Summary ---
Author Organization [employer] Address [address] [place] [address] Care Team Providers Care Oral Health Therapist Name Role Phone Brea Maciel MD Primary Care Provider [phone] Reason for Visit * Reason Comments OTV Encounter Details Date Type Department Care Team (Latest Contact Info) Description 06/30/2024 1:26 PM EST - 06/30/2024 11:59 PM EST Hospital Encounter [facility] Radiation Oncology 271 [facility] 2nd [place] [phone] Lázaro Campuzano MD [address] [facility] 100 [place] [address] Head and neck cancer (CMS/HCC) (Primary Dx) [...] tracheostomy, teeth extractions by Dr. Lu at [facility] STAGE: Cancer Staging Primary squamous cell [...] Chang Accompanied by: self and in demand leather production worker Bg # [id number] Subjective: Are you experiencing any fatigue? No [...] beans and chicken. Are you seeing a rubber cutter or speech language pathologist? Yes Does patient [...] moisturizer once daily on neck. Went to [facility] ER on 06/12/24 due to concern [...] Info) Description 08/06/2024 1:30 PM EST Appointment [facility] Radiation Oncology [address] [place] [phone] Micaela Sandhu NP [address] [place] [address] [facility] [place] [address] 08/11/2024 1:30 PM EDT Office Visit [facility] Hematology Oncology [address] [place] [phone] Tawana Chang MD [address] [place] [address] documented as of this encounter Visit Diagnoses Diagnosis Head and neck cancer (CMS/HCC)- Primary documented in this encounter Care Teams Oral Health Therapist Relationship Specialty Start Date End Date Brea Maciel MD [address] [place] [phone] PCP - General 10/08/23 documented as of this encounter
--- OUTSIDE RECORDS SUMMARY | 2024-07-14 15:54 | XMS_ITS | Encounter Summary ---
Author Organization [facility] Address [address] [place] [address] Care Team Providers Care Independent Distributor Name Role Phone Laura Hogue APRN Primary Care Provider Apple Villatoro DO Unavailable [phone] Encounter Details Date Type Department Care Team (Late st Contact Info) Description 08/31/2022 Scanned Document [facility] [place] [address] [place] [address] [address] [phone] Laura Hogue APRN [address] [place], [place] [phone] Social History Tobacco Use Types Packs/Day Years [...] documented as of this encounter Care Teams Independent Distributor Relationship Specialty Start Date End Date Laura Hogue APRN [address] [place] [address] PCP - General Family Medicine 09/04/19 Apple Villatoro DO [address] [place] [address] Stations Superintendent Cardiovascular Disease 04/12/23 documented as of this encounter
--- OUTSIDE RECORDS SUMMARY | 2024-07-14 15:54 | XMS_ITS | Encounter Summary ---
Author Organization [employer] Address [address] [place] [address] Care Team Providers Care Wire Taper Name Role Phone Brea Maciel MD Primary Care Provider [phone] Encounter Details Date Type Department Care Team (Latest Contact Info) Description 06/24/2024 1:05 PM EST - 06/24/2024 11:59 PM EST Hospital Encounter [facility] Radiation Oncology [address] [phone] Discharge Disposition: Home or Self Care Social [...] Appointment [facility] Radiation Oncology [address] [phone] Micaela Sandhu NP [address] [place] [address] [address] [place] [phone] 08/11/2024 1:30 PM EDT Office Visit [facility] Hematology Oncology [address] [place] [address] Tawana Chang MD [address] [place] [address] documented as of this encounter Procedures Procedure [...] on filedocumented in this encounter Care Teams Wire Taper Relationship Specialty Start Date End Date Brea Maciel MD [address] [place] [phone] PCP - General 10/08/23 documented as of this encounter
--- OUTSIDE RECORDS SUMMARY | 2024-07-14 15:54 | XMS_ITS | Encounter Summary ---
Author Organization [employer] Address [address] 7[address] [place] [address] Care Team Providers Care Network Relay Tester Name Role Phone Brea Maciel MD Primary Care Provider [phone] Reason for Visit * Reason Onset Date Comments medication 01/10/2024 Encounter Details Date Type Department Care Team ([facility] st Contact Info) Description 01/10/2024 Telephone [facility] ADULT DENTAL 230 [place] [address] Enrique Soria, DMD 505 [place] [address] medication Social History Tobacco Use Types Packs/Day [...] Meredith Sánchez - 01/10/2024 10:17 AM EDT [place] DOCTOR WADE Harrisaraceli Coronado is a 68 y.o. year old male.CALLED TODAY SAYING U DIGINOSE HIM WITH CANCER .YESTERDAY AND HIS IN A LOT OF PAIN.CAN YOU SEND HIM SOMETHING FOR PAIN SHARIF Kumar . documented in this encounter Plan of Treatment Upcoming Encounters Date Type Department Care Team (Late st Contact Info) Description 08/19/2024 1:15 PM EDT Office Visit [facility] CHC MED & PEDS 505 [place] [address] Santosh Walker MD 505 [place] [address] documented as of this encounter Visit Diagnoses Not on filedocumented in this encounter Care Teams Network Relay Tester Relationship Specialty Start Date End Date Brea Maciel MD 230 [place] [address] PCP - General Family Medicine 09/21/23 documented as of this encounter
--- OUTSIDE RECORDS SUMMARY | 2024-07-14 15:54 | XMS_ITS | Encounter Summary ---
Author Organization [employer] Address [address] [facility] 7 [place] [address] Care Team Providers Care Inspecting Supervisor Name Role Phone Brea Maciel MD Primary Care Provider [phone] Reason for Referral * Medications - Closed Specialty Diagnoses / Procedures Referred By Contac t Referred To Contact Diagnoses Chronic midline low back pain without sciatica Santosh Walker MD 505 [place] [address] Phone: tel: fax: Referral ID Status Reason Start Date Expiration Date Visits Re quested Visits Authorized [id number] Closed 07/09/2024 07/09/2025 1 1 Encounter Details Date Type Department Care Team (Late st Contact Info) Description 07/09/2024 8:45 AM EST Office Visit [facility] CHC MED & PEDS [address] [place] [address] Santosh Walker MD [address] [place] [address] Type 2 diabetes mellitus without 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, with long-term current use of insulin ([facility]) (Primary Dx); Chronic midline [...] 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, with long-term current use of insulin ([facility]) - Primary (Chronic) Patient having [...] Description 08/19/2024 1:15 PM EDT Office Visit [facility] MED & PEDS [address] [place], [place] [phone] Santosh Walker MD [address] [place] [address] documented as of this encounter Procedures Procedure Name Priority Date/Time Associated Diagnosis Comments POCT GLYCATED HEMOGLOBIN, TOTAL Routine 07/09/2024 9:15 AM EST Type 2 diabetes mellitus without 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, with long-term current use of insulin ([facility]) POCT GLUCOSE Routine 07/09/2024 9:14 AM EST Type 2 diabetes mellitus without 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, with long-term current use of insulin ([facility]) documented in this encounter Results [...] 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, with long-term current use of insulin ([facility])- Primary Chronic midline low back pain without sciatica Dietary counseling Dietary surveillance and counseling Exercise counseling Mixed hyperlipidemia Essential hypertension Unspecified essential hypertension documented in this encounter Additional Health Concerns Assessment Noted Time PHQ-9 Depression Total Score: 0 07/09/19 25 8:57 AM EST documented as of this encounter Care Teams Inspecting Supervisor Relationship Specialty Start Date End Date Brea Maciel MD [address] [place] [address] PCP - General Family Medicine 09/21/23 documented as of this encounter
--- OUTSIDE RECORDS SUMMARY | 2024-07-14 15:54 | XMS_ITS | Encounter Summary ---
Author Organization [employer] Address [address] [facility] [address] 7t [place] [address] Care Team Providers Care Champion Of Sustainable Design Name Role Phone Brea Maciel MD Primary Care Provider [phone] Reason for Visit * Reason Onset Date Comments Durable Medical Equipment 04/11/2024 Encounter Details Date Type Department Care Team ([facility] Contact Info) Description 04/11/2024 Telephone [facility] MEDICINE [address] [place] [address] Brea Maciel MD [address] [place] [phone] Durable Medical Equipment Social History Tobacco Use [...] - 04/11/2024 3:09 PM EST Tc from [facility] ([facility]) requesting DME supply for pt Shower Chair, Race toilet seat with hand rest, walker with seat . Callback number [phone] documented in this encounter Plan of Treatment Upcoming Encounters Date Type Department Care Team (Late st Contact Info) Description 08/19/2024 1:15 PM EDT Office Visit [facility] CHC MED & PEDS 505 [place] [address] Santosh Walker MD [address] [place] [address] documented as of this encounter Visit Diagnoses Not on filedocumented in this encounter Additional Health Concerns Assessment Noted Time PHQ-9 Depression Total Score: 10 024 11:21 AM EDT documented as of this encounter Care Teams Champion Of Sustainable Design Relationship Specialty Start Date End Date Brea Maciel MD 230 [place] [address] PCP - General Family Medicine 09/21/23 documented as of this encounter
--- OUTSIDE RECORDS SUMMARY | 2024-07-14 15:54 | XMS_ITS | Encounter Summary ---
Author Organization [email or web address] Address [address] [facility] [address] [place] [address] Care Team Providers Care Marketing Project Manager Name Role Phone Brea Maciel MD Primary Care Provider [phone] Encounter Details Date Type Department Care Team ([facility] st Contact Info) Description 02/15/2024 Telephone [facility] MEDICINE [address] [place] [address] Brea Maciel MD [address] [place], [place] [phone] Social History Tobacco Use Types Packs/Day Years [...] Description 08/19/2024 1:15 PM EDT Office Visit [facility] CHC MED & PEDS 505 [place] [address] Santosh Walker MD 505 [place] [address] documented as of this encounter Visit Diagnoses Not on filedocumented in this encounter Additional Health Concerns Assessment Noted Time PHQ-9 Depression Total Score: 10 024 11:21 AM EDT documented as of this encounter Care Teams Marketing Project Manager Relationship Specialty Start Date End Date Brea Maciel MD [address] [place] [address] PCP - General Family Medicine 09/21/23 documented as of this encounter
--- OUTSIDE RECORDS SUMMARY | 2024-07-14 15:54 | XMS_ITS | Encounter Summary ---
Author Organization [employer] Address [address] [facility] 7t [place] [address] Care Team Providers Care Game Designer/Creative Director Name Role Phone Brea Maciel MD Primary Care Provider [phone] Reason for Visit * Reason Onset Date Comments Prior Authorization 07/14/2024 Encounter Details Date Type Department Care Team ([facility] Contact Info) Description 07/14/2024 Telephone [facility] CHC MED & PEDS [address] [place] [address] Brea Maciel MD [address] [place] [address] Prior Authorization Social History Tobacco Use Types [...] Upcoming Encounters Date Type Department Care Team ([facility] st Contact Info) Description 08/19/2024 1:15 PM EDT Office Visit [facility] MED & PEDS [address] [place] [address] Santosh Walker MD 505 [place] [address] documented as of this encounter Visit Diagnoses Not on filedocumented in this encounter Additional Health Concerns Assessment Noted Time PHQ-9 Depression Total Score: 0 07/09/19 25 8:57 AM EST documented as of this encounter Care Teams Game Designer/Creative Director Relationship Specialty Start Date End Date Brea Maciel MD [address] [place] [address] PCP - General Family Medicine 09/21/23 documented as of this encounter
--- OUTSIDE RECORDS SUMMARY | 2024-07-14 15:54 | XMS_ITS | Encounter Summary ---
Author Organization [facility] Address [address] [place] [address] Care Team Providers Care Pediatric Lpn Name Role Phone Laura Hogue APRN Primary Care Provider Apple Villatoro DO Unavailable [phone] Encounter Details Date Type Department Care Team (Late st Contact Info) Description 03/08/2023 Scanned Document [address] [place] [phone] Provider, Generic Social History Tobacco Use Types [...] on filedocumented in this encounter Care Teams Pediatric Lpn Relationship Specialty Start Date End Date Laura Hogue APRN [address] [place] [address] PCP - General Family Medicine 09/04/19 Apple Villatoro DO [address] [place] [id number] Metal Furnace Operator Cardiovascular Disease 04/12/23 documented as of this encounter
--- OUTSIDE RECORDS SUMMARY | 2024-07-14 15:54 | XMS_ITS | Encounter Summary ---
Author Organization [employer] Address [address] [facility] 7t [place] [address] Care Team Providers Care Circulation Assistant Name Role Phone Brea Maciel MD Primary Care Provider [phone] Reason for Visit * Reason Comments Med Refill Encounter Details Date Type Department Care Team ([facility] Contact Info) Description 05/01/[address] [facility] CHC MED & PEDS [address] [place], [place] [phone] Manjinder Tucker MD 505 [place] [address] Psoriasis Social History Tobacco Use Types Packs/Day [...] Description 08/19/2024 1:15 PM EDT Office Visit [facility] MED & PEDS [address] [place] [address] ArroyoSantosh Richardson MD [address] [place] [address] documented as of this encounter Visit Diagnoses Diagnosis Psoriasis Other psoriasis documented in this encounter Additional Health Concerns Assessment Noted Time PHQ-9 Depression Total Score: 10 024 11:21 AM EDT documented as of this encounter Care Teams Circulation Assistant Relationship Specialty Start Date End Date Brea Maciel MD [address] [place] [address] PCP - General Family Medicine 09/21/23 documented as of this encounter
--- OUTSIDE RECORDS SUMMARY | 2024-07-14 15:54 | XMS_ITS | Encounter Summary ---
Author Organization [facility] Address [address] [place] [address] Care Team Providers Care Work Order Clerk Name Role Phone Lennie Laura ESTRADA Primary Care Provider [phone] Apple Villatoro DO Unavailable [phone] Encounter Details Date Type Department Care Team (Late st Contact Info) Description 08/31/2022 Scanned Document [facility] [address] [facility] [address] [place] [phone] Shabnam Merrill MD [address] [place] [address] Social History Tobacco Use Types Packs/Day Years [...] documented as of this encounter Care Teams Work Order Clerk Relationship Specialty Start Date End Date Laura Hogue APRN [address] [place] [address] PCP - General Family Medicine 09/04/19 Apple Villatoro DO [address] [place] [address] Body Technician/Painter Cardiovascular Disease 04/12/23 documented as of this encounter
--- OUTSIDE RECORDS SUMMARY | 2024-07-14 15:54 | XMS_ITS | Encounter Summary ---
Author Organization [employer] Address [address] [facility] 7t [place] [address] Care Team Providers Care Senior Financial Name Role Phone Brea Maciel MD Primary Care Provider [phone] Encounter Details Date Type Department Care Team [...] Upcoming Encounters Date Type Department Care Team ([facility] st Contact Info) Description 08/19/2024 1:15 PM EDT Office Visit [facility] CHC MED & PEDS [address] [place], [place] [phone] Santosh Walker MD [address] [place], [place] [phone] documented as of this encounter Visit Diagnoses Not on filedocumented in this encounter Additional Health Concerns Assessment Noted Time PHQ-9 Depression Total Score: 0 07/09/19 25 8:57 AM EST documented as of this encounter Care Teams Senior Financial Relationship Specialty Start Date End Date Brea Maciel MD [address] [place] [address] PCP - General Family Medicine 09/21/23 documented as of this encounter
--- OUTSIDE RECORDS SUMMARY | 2024-07-14 15:54 | XMS_ITS | Encounter Summary ---
Author Organization [facility] Address [address] [place] [address] Care Team Providers Care Green Coffee Blender Name Role Phone Brea Maciel MD Primary Care Provider [phone] Encounter Details Date Type Department Care Team (Latest Contact Info) Description 06/25/2024 1:03 PM EST - 06/25/2024 11:59 PM EST Hospital Encounter [facility] Radiation Oncology [address] [phone] Discharge Disposition: Home or Self Care Social [...] Appointment [facility] Radiation Oncology [address] [phone] Micaela Sandhu NP [address] [place] [address] [address] [place] [phone] 08/11/2024 1:30 PM EDT Office Visit [facility] Hematology Oncology [address] [place] [address] Tawana Chang MD [address] [place] [address] documented as of this encounter Procedures Procedure [...] on filedocumented in this encounter Care Teams Green Coffee Blender Relationship Specialty Start Date End Date Brea Maciel MD [address] [place] [phone] PCP - General 10/08/23 documented as of this encounter
--- OUTSIDE RECORDS SUMMARY | 2024-07-14 15:54 | XMS_ITS | Encounter Summary ---
Author Organization [employer] Address [address] [facility] 7t [place] [address] Care Team Providers Care Barber Apprentice Name Role Phone Brea Maciel MD Primary Care Provider [phone] Encounter Details Date Type Department Care Team ([facility] st Contact Info) Description 05/07/2024 Orders Only [facility] [address] [place] [address] Provider, MD Hoa Social History Tobacco Use [...] Description 08/19/2024 1:15 PM EDT Office Visit [facility] MED & PEDS 505 [place], [place] [phone] ArroyoSantosh Richardson MD 505 [place], [place] [phone] documented as of this encounter Procedures Procedure [...] documented as of this encounter Care Teams Barber Apprentice Relationship Specialty Start Date End Date Brea Maciel MD [address] [place] [address] PCP - General Family Medicine 09/21/23 documented as of this encounter
--- OUTSIDE RECORDS SUMMARY | 2024-07-14 15:54 | XMS_ITS | Encounter Summary ---
Author Organization [employer] Address [address] [place] [address] Care Team Providers Care Nursing Home Admissions Director Name Role Phone Brea Maciel MD Primary Care Provider [phone] Reason for Visit * Reason Comments OTV Encounter Details Date Type Department Care Team (Latest Contact Info) Description 06/17/2024 1:26 PM EST - 06/17/2024 11:59 PM EST Hospital Encounter [facility] Radiation Oncology [address] [phone] Leyla Flanagan MD [address] [place] [address] Primary squamous cell carcinoma of lower gingiva [...] beans and chicken. Are you seeing a manager social services or speech language pathologist? Yes Does patient have a g-tube? Yes . If so, How many cans per day are you using via g-tube? N/A Any problems with the tube or tube site? No, flushing tube twice daily. Pt reports lip is painful. Pt to see MD in [place] tomorrow. * Leyla Flanagan MD - 06/17/2024 [...] teeth extractions by Dr. Lu at [facility] STAGE: Cancer Staging Primary squamous cell [...] beans and chicken. Are you seeing a manager social services or speech language pathologist? Yes Does patient have a g-tube? Yes . If so, How many cans per day are you using via g-tube? N/A Any problems with the tube or tube site? No, flushing tube twice daily. Pt reports lip is painful. Pt to see MD in [place] tomorrow. Physical Exam: There were no vitals [...] moisturizer once daily on neck. Went to [facility] ER on 06/12/24 due to concern for infection, per ER note suspicion was low but pt placed on antibiotic and told to follow up with surgeon. Pt missed RT 06/12 and 06/13. Small patch of mucositis on right lower lip, I recommend applying aqupahor to this area. Samples given. Pt has FU Dr. Lu ([facility] surgeon) tomorrow. documented in this encounter Plan of Treatment Upcoming Encounters Date Type Department Care Team (Late st Contact Info) Description 08/06/2024 1:[address] [facility] Radiation Oncology [address] [place] [phone] Micaela Sandhu NP [address] [place] [address] [address] [place] [phone] 08/11/2024 1:30 PM EDT Office Visit 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
--- OUTSIDE RECORDS SUMMARY | 2024-07-14 15:54 | XMS_ITS | Encounter Summary ---
Author Organization [email or web address] Address [address] [facility] 7t [place] [address] Care Team Providers Care Ux Consultant Name Role Phone Brea Maciel MD Primary Care Provider [phone] Encounter Details Date Type Department Care Team (Late st Contact Info) Description 07/24/2023 Orders Only [facility] WALK-IN CENTER [address] [place] [address] Shawn Mendez MD [address] [place] [address] Social History Tobacco Use Types Packs/Day Years [...] 1:15 PM EDT Office Visit [facility] CHC MED & PEDS 505 [place], [place] [phone] Santosh Walker MD 505 [place], [place] [phone] documented as of this encounter Visit Diagnoses Not on filedocumented in this encounter Care Teams Ux Consultant Relationship Specialty Start Date End Date Brea Maciel MD [address] [place] [address] PCP - General Family Medicine 09/21/23 documented as of this encounter
--- OUTSIDE RECORDS SUMMARY | 2024-07-14 15:54 | XMS_ITS | Encounter Summary ---
Author Organization [employer] Address [address] [place] [address] Care Team Providers Care Director Of Emergency Nursing Name Role Phone Brea Maciel MD Primary Care Provider [phone] Encounter Details Date Type Department Care Team (Latest Contact Info) Description 06/30/2024 12:41 PM EST - 06/30/2024 11:59 PM EST Hospital Encounter [facility] Radiation Oncology [address] [phone] Discharge Disposition: Home or Self Care Social [...] Info) Description 08/06/2024 1:30 PM EST Appointment [facility] Radiation Oncology [address] [phone] Micaela Sandhu NP [address] [place] [address] [place] [phone] 08/11/2024 1:30 PM EDT Office Visit [facility] Hematology Oncology [address] [place] [address] Tawana Chang MD [address] [place] [address] documented as of this encounter Procedures Procedure [...] in this encounter Care Teams Director Of Emergency Nursing Relationship Specialty Start Date End Date Brea Maciel MD [address] [place] [address] PCP - General 10/08/23 documented as of this encounter
--- OUTSIDE RECORDS SUMMARY | 2024-07-14 15:54 | XMS_ITS | Encounter Summary ---
Author Organization [employer] Address [address] [place] [address] Care Team Providers Care Fixture Fabricator Repairer Name Role Phone Brea Maciel MD Primary Care Provider [phone] Encounter Details Date Type Department Care Team (Latest Contact Info) Description 06/19/2024 12:41 PM EST - 06/19/2024 11:59 PM EST Hospital Encounter [facility] Radiation Oncology [address] [phone] Discharge Disposition: Home or Self Care Social [...] [facility] [address] [phone] Micaela Sandhu NP [address] [place] [address] [place] [address] 08/11/2024 1:30 PM EDT Office Visit [facility] Hematology Oncology [address] [place] [address] Tawana Chang MD [address] [place] [address] documented as of this encounter Procedures Procedure [...] on filedocumented in this encounter Care Teams Fixture Fabricator Repairer Relationship Specialty Start Date End Date Brea Maciel MD [address] [place] [address] PCP - General 10/08/23 documented as of this encounter
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
--- OUTSIDE RECORDS SUMMARY | 2024-07-14 15:54 | XMS_ITS | Clinical Summary ---
Author Organization [employer] Address [address] [facility] 7t [place] [address] Care Team Providers Care Comic Book Designer Name Role Phone Brea Maciel MD Primary Care Provider [phone] Allergies Active Allergy Reactions Criticality Noted Date [...] each 11 10/05/19 24 Active Continuous Glucose Pastry Artist (FreeStyle Marlen 2 Rocklin) device 1 Units 4 times daily. 1 [...] Colon Cancer Screening for recheck. Referring to Cigarette Packer. Continuous leakage of urine 10/05/2023 Assessment & [...] in one month. Relevant Medications Continuous Glucose Pastry Artist (Freestyle Marlen 2 Rocklin) device Continuous Glucose Pastry Artist (Freestyle Marlen 2 Sensor) misc Insulin glargine [...] losartan and amlodipine, will send medication to [facility]. Also he does not have a bp monitor at home, will send one, follow up with pcp in 2-3 months Resolved Problems Problem Noted Date Diagnosed Date Resolved Date Community acquired pneumonia 08/26/2019 09/21/2023 Encounters Date Type Department Care Team Description 07/14/2024 Telephone [facility] PEDS [address] [place] [address] Brea Maciel MD Prior Authorization 07/09/2024 8:45 AM EST Office Visit [facility] [address] [place] [address] Santosh Walker MD Type 2 diabetes mellitus without 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, with long-term current use of insulin ([facility]) (Primary Dx); Chronic midline low back pain without sciatica; Dietary counseling; Exercise counseling; Mixed hyperlipidemia; Essential hypertension 07/09/2024 Travel 07/02/2024 Patient Outreach [facility] [address] [place] [address] Brea Maciel MD Care Coordination (CHW outreach for SDOH PT-1 and food needs-referral completed /) 07/02/2024 Patient Outreach [facility] [address] [place] [address] Brea Maciel MD Pre-visit Planning (SDOH positive, Tobacco screening negative.) 06/17/2024 Telephone [facility] [address] [place] [address] Brea Maciel MD FYI 06/02/2024 Telephone [facility] [address] [place] [address] Brea Maciel MD Reschedule 05/23/2024 Patient Outreach [facility] [address] [place] [address] Brea Maciel MD Pre-visit Planning (SDOH was completed on 09/12/2023) 05/20/2024 Refill [facility] [address] [place] [address] Brea Maciel MD 05/20/2024 Refill [facility] [address] [place] [address] Brea Maciel MD 05/07/2024 [facility] Information Management [address] [place] [address] Hoa Noe MD 05/06/2024 Telephone [facility] [address] [place] [address] Brea Maciel MD Referral 05/05/2024 Refill [facility] [address] [place] [address] Manjinder Tucker MD Psoriasis 05/05/2024 Telephone [facility] [address] [place] [address] Brea Maciel MD Med Refill 05/01/2024 Refill [facility] [address] [place] [address] Manjinder Tucker MD Psoriasis 04/28/2024 Refill [facility] [address] [place] [address] Brea Maciel MD 04/25/2024 Telephone [facility] [address] [place] [address] Brea Maciel MD 04/21/2024 Telephone [facility] [address] [place] [address] Brea Maciel MD Medication Question 04/18/2024 Orders Only [facility] [address], [place] [phone] Santosh Walker MD 04/16/2024 10:00 AM EST Office Visit [facility] [address], [place] [phone] Santosh Walker MD Type 2 diabetes mellitus without 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, with long-term current use of insulin ([facility]) (Primary Dx); Hospital discharge follow-up; Primary insomnia 04/15/2024 Telephone [facility] [address], [place] [phone] Brea Maciel MD Chart Prep 04/15/2024 Travel [...] 1:15 PM EDT Office Visit [facility] [address], [place] [phone] Santosh Walker MD [address] [place], [place] [phone] Health Maintenance Due Date Last Done Comments [...] resultswithin the time period is included. Pathologist [facility] Hemoglobin A1C 8.3(A) 4.0 - 6.0 % QC Media Lot # [id number] Lot# Expiration Date ,026 Blood 07/09/2024 9:15 AM EST Santosh Reyes MD POINT OF CARE TEST ENTER/EDIT ORDERABLES Final Result * POCT Glucose (07/09/2024 9:14 AM EST) Only the most recent of2 resultswithin the time period is included. [facility] Glucose Blood, POC 161 60 - 200 [...] Metabolic Panel (04/16/2024 11:32 AM EST) Pathologist [facility] Sodium 134(L) 135 - 145 mmol/L [facility] Potassium 4.1 3.3 - 5.1 mmol/L [facility] Chloride 101 96 - 108 mmol/L [facility] Carbon Dioxide 22 22 - 29 mmol/L [facility] Anion Gap 15 12 - 20 [facility] Urea Nitrogen (BUN) 13 9 - 16 mg/dL [facility] Creatinine, Serum 1.28 0.5 - 1.4 mg/dL [facility] Estimated Glomerular Filt Rate 56 [facility] Comment:Chronic Kidney Disea se: Estimated GFR < 60 mL/min/[id number] Kidney Disease: Estimated GFR < 15 mL/min/1.73m2 Glucose 285(H) 60 - 115 mg/dL [facility] Calcium 10.2 8.4 - 10.2 mg/dL [facility] Bilirubin, Total 0.6 0.0 - 1.0 mg/dL [facility] Aspartate Amino Transferase 33 5 - 37 U/L [facility] Alanine Aminotransferase 29 0 - 40 U/L [facility] Total Protein 7.6 6.5 - 8.0 g/dL [facility] Albumin Level 3.9 3.5 - 5.0 g/dL [facility] Alkaline Phosphatase 163(H) 39 - 117 U/L [facility] Blood Venous blood specimen / Unknown 04/16/2024 11:32 AM EST 04/16/2024 2:19 PM EST us Santosh Reyes MD LAB BLOOD ORDERABL ES Final Result Performing Organization Address [facility]/ZIP Co de Phone Number [facility] [address] [place] [phone] * Protein Creatinine Ratio, Urine (10/01/2023 8:20 AM EDT) Creatinine, Urine 43.57 mg/dL [facility] Protein, Total, Random Urine <7 <12 mg/dL [facility] Protein/Creatin ine Ratio, Ur TNP <0.2 [facility] Comment:Unable to calculate urine protein creatinine ratio due tolow creatinine or protein result. 10/01/2023 8:20 AM EDT 10/01/2023 2:00 PM EDT us Brea Maciel MD LAB URINE ORDERABLES Final Re sult Performing Organization Address [facility]/ZIP Co de Phone Number [facility] [address] [place] [address] [phone] * Hepatitis C Antibody with Reflex to HCV, RNA, Quantitative, Real-Time PCR (09/24/2023 8:28 AM EDT) Hepatitis C Antibody Nonreactive Nonreactive [facility] Comment:Antibodies to HCV no t detected; does not exclude early acuteHCV infection. Blood Venous blood specimen / Unknown 09/24/2023 8:28 AM EDT 09/24/2023 2:45 PM EDT us Brea Maciel MD LAB BLOOD ORDERABLES Final Re sult [facility] [address] [place] [address] [phone] * Lipid Panel, Standard (09/24/2023 8:28 AM EDT) Triglycerides 104 <150 mg/dL [facility] Comment:Desirable Triglyceri de: less than 150 mg/dLBorderline High Triglyceride 150-199 mg/dLHigh Triglyceride: 200-499 mg/dLVery High Triglyceride: greater than or equal to 5OO mg/dL Cholesterol 157 <200 mg/dL [facility] Comment:Desirable Cholestero l: less than 200 mg/dLBorderline High Cholesterol: 200-239 mg/dLHigh Cholesterol: greater than 239 mg/dL LDL Cholesterol Calculated 78 <100 mg/dL [facility] Comment:Desirable LDL: less than 100 mg/dLNear Optimal/Above Optimal LDL: 110- 129 mg/dLBorderline High LDL: 130-159 mg/dLHigh LDL: 160-189 mg/dLVery High LDL: greater than or equal to 190 mg/dL HDL Cholesterol 59 >40 mg/dL [facility] Comment:Desirable HDL: great er than 40 mg/dL Note: This HDL assay may give artificially low results in patients with liver disease. Blood Venous blood specimen / Unknown 09/24/2023 8:28 AM EDT 09/24/2023 2:45 PM EDT us Brea Maciel MD LAB BLOOD ORDERABLES Final Re sult [facility] [address] [place] [address] [phone] from Last 3 Months or Most Recently Relevant to Health Maintenance Insurance [facility] - [facility] Care Teams Comic Book Designer Relationship Specialty Start Date End Date Brea Maciel MD [address] [place] [address] PCP - General Family Medicine 09/21/23
--- OUTSIDE RECORDS SUMMARY | 2024-07-14 15:54 | XMS_ITS | Encounter Summary ---
Author Organization [employer] Address [address] [facility] 7t [place] [address] Care Team Providers Care Restaurant Crew Person Name Role Phone Brea Maciel MD Primary Care Provider [phone] Reason for Visit * Reason Comments Care Coordination CHW outreach for SDO H PT-1 and food needs-referral completed Encounter Details Date Type Department Care Team (Latest Contact Info) Description 07/02/2024 Patient Outreach [facility] MED & PEDS [address] [place], [place] [phone] Brea Maciel MD [address] [place] [address] Care Coordination (CHW outreach for SDOH PT-1 [...] Wheat - 07/02/2024 11:13 AM EST CHW Reese Wheat, placed outbound call to patient for [...] Wednesdays, and Walk-In Urgent Care Located in [facility]. Patient provided with after-hours line for [facility], , which offer night time triage service and option to transfer to weigher production provider if needed. documented in this encounter Plan of Treatment Upcoming Encounters Date Type Department Care Team (Late st Contact Info) Description 08/19/2024 1:15 PM EDT Office Visit [facility] PEDS [address] [place] [address] Santosh Walker MD [address] [place] [address] documented as of this encounter Visit Diagnoses Not on filedocumented in this encounter Additional Health Concerns Assessment Noted Time PHQ-9 Depression Total Score: 10 024 11:21 AM EDT documented as of this encounter Care Teams Restaurant Crew Person Relationship Specialty Start Date End Date Brea Maciel MD [address] [place] [address] PCP - General Family Medicine 09/21/23 documented as of this encounter
--- OUTSIDE RECORDS SUMMARY | 2024-07-14 15:54 | XMS_ITS | Encounter Summary ---
Author Organization [employer] Address [address] [facility] [address] 7t [place] [address] Care Team Providers Care Aeronautical Test Engineer Name Role Phone Brea Maciel MD Primary Care Provider Reason for Visit * Reason Onset Date Comments Reschedule 06/02/2024 Encounter Details Date Type Department Care Team ([facility] Contact Info) Description 06/02/2024 Telephone [facility] [address] [place] [address] Brea Maciel MD [address] [place] [phone] Reschedule Social History Tobacco Use Types Packs/Day [...] Upcoming Encounters Date Type Department Care Team ([facility] st Contact Info) Description 08/19/2024 1:15 PM EDT Office Visit [facility] MED & PEDS [address] [place] [address] Santosh Walker MD [address] [place] [address] documented as of this encounter Visit Diagnoses Not on filedocumented in this encounter Additional Health Concerns Assessment Noted Time PHQ-9 Depression Total Score: 10 024 11:21 AM EDT documented as of this encounter Care Teams Aeronautical Test Engineer Relationship Specialty Start Date End Date Brea Maciel MD [address] [place] [address] PCP - General Family Medicine 09/21/23 documented as of this encounter
--- OUTSIDE RECORDS SUMMARY | 2024-07-14 15:54 | XMS_ITS | Encounter Summary ---
Author Organization [employer] Address [address] [place] [address] Care Team Providers Care Linoleum Tile Layer Name Role Phone Brae Maciel MD Primary Care Provider [phone] Encounter Details Date Type Department Care Team (Late st Contact Info) Description 06/16/[address] [facility] Radiation Oncology [address] [place] [address] 2[address] [place] [phone] Micaela Sandhu, QUAN [address] [place] [phone] Social History Tobacco Use Types Packs/Day Years [...] 10:06 AM EST Spoke with patient with auto garage mechanic [address] [address]. Patient states he is feeling a little better from 06/12/24. Lip is still swollen and has bloody discharge. He denies fevers. It is still painful. He is due to see Oncology in [place] 06/18/24. Dr. Flanagan would like him to resume treatment today. Patientis agreeable and will come in today at his scheduled time. documented in this encounter Plan of Treatment Upcoming Encounters Date Type Department Care Team (Late st Contact Info) Description 08/06/2024 1:[address] [facility] Radiation Oncology [address] [phone] Micaela Sandhu NP [address] [place] [phone] 08/11/2024 1:30 PM EDT Office Visit [facility] Hematology Oncology [address] [place] [phone] Tawana Chang MD [address] [place] [address] documented as of this encounter Visit Diagnoses Not on filedocumented in this encounter Care Teams Linoleum Tile Layer Relationship Specialty Start Date End Date Brea Maciel MD [address] [place] [address] PCP - General 10/08/23 documented as of this encounter
--- OUTSIDE RECORDS SUMMARY | 2024-07-14 15:54 | XMS_ITS | Encounter Summary ---
Author Organization [employer] Address [address] [place] [address] Care Team Providers Care Ship Laborer Name Role Phone Brea Maciel MD Primary Care Provider [phone] Encounter Details Date Type Department Care Team (Latest Contact Info) Description 06/16/2024 12:40 PM EST - 06/16/2024 11:59 PM EST Hospital Encounter [facility] Radiation Oncology [address] [phone] Discharge Disposition: Home or Self Care Social [...] Appointment [facility] Radiation Oncology [address] [phone] Micaela Sandhu NP [address] [place] [address] [facility] [place] [address] 08/11/2024 1:30 PM EDT Office Visit [facility] Hematology Oncology [address] [place] [phone] Tawana Chang MD [address] [place] [address] documented as of this encounter Procedures Procedure [...] filedocumented in this encounter Care Teams Ship Laborer Relationship Specialty Start Date End Date Brea Maciel MD [address] [place] [address] PCP - General 10/08/23 documented as of this encounter
--- OUTSIDE RECORDS SUMMARY | 2024-07-14 15:54 | XMS_ITS | Encounter Summary ---
Author Organization [employer] Address [address] [place] [address] Care Team Providers Care Drop Forge Operator Name Role Phone Brea Maciel MD Primary Care Provider [phone] Encounter Details Date Type Department Care Team (Latest Contact Info) Description 06/17/2024 12:41 PM EST - 06/17/2024 11:59 PM EST Hospital Encounter [facility] Radiation Oncology [address] [phone] Discharge Disposition: Home or Self Care Social [...] Info) Description 08/06/2024 1:30 PM EST Appointment [facility] Radiation Oncology [address] [phone] Micaela Sandhu NP [address] [place] [address] [facility] [address] 08/11/2024 1:30 PM EDT Office Visit [facility] Hematology Oncology [address] [place] [phone] Tawana Chang MD [address] [place] [address] documented as of this encounter Procedures Procedure [...] on filedocumented in this encounter Care Teams Drop Forge Operator Relationship Specialty Start Date End Date Brea Maciel MD [address] [place] [address] PCP - General 10/08/23 documented as of this encounter
--- OUTSIDE RECORDS SUMMARY | 2024-07-14 15:54 | XMS_ITS | Encounter Summary ---
Author Organization [facility] Address [address] [place] [address] Care Team Providers Care Continuous Crusher Operator Name Role Phone Brea Maciel MD Primary Care Provider [phone] Encounter Details Date Type Department Care Team (Latest Contact Info) Description 06/18/2024 12:23 PM EST - 06/18/2024 11:59 PM EST Hospital Encounter [facility] Radiation Oncology [address] [phone] Discharge Disposition: Home or Self Care Social [...] PM EST Appointment [facility] Radiation Oncology [address] [place] [phone] Micaela Sandhu NP [address] [place] [phone] 08/11/2024 1:30 PM EDT Office Visit [facility] Hematology Oncology [address] [place] [phone] Tawana Chang MD [address] [place] [address] documented as of this encounter Procedures Procedure [...] on filedocumented in this encounter Care Teams Continuous Crusher Operator Relationship Specialty Start Date End Date Brea Maciel MD [address] [place] [address] PCP - General 10/08/23 documented as of this encounter
--- OUTSIDE RECORDS SUMMARY | 2024-07-14 15:54 | XMS_ITS | Encounter Summary ---
Author Organization [employer] Address [address] [place] [address] Care Team Providers Care Lead Level Designer Name Role Phone Brea Maciel MD Primary Care Provider [phone] Encounter Details Date Type Department Care Team (Latest Contact Info) Description 06/23/2024 1:12 PM EST - 06/23/2024 11:59 PM EST Hospital Encounter [facility] Radiation Oncology [address] [phone] Discharge Disposition: Home or Self Care Social [...] Description 08/06/2024 1:30 PM EST Appointment [facility] Radiation Oncology [address] [phone] Micaela Sandhu NP [address] [place] [address] [address] [place] [phone] 08/11/2024 1:30 PM EDT Office Visit [facility] Hematology Oncology [address] [place] [phone] Tawana Chang MD [address] [place] [address] documented as of this encounter Procedures Procedure [...] on filedocumented in this encounter Care Teams Lead Level Designer Relationship Specialty Start Date End Date Brea Maciel MD [address] [place] [phone] PCP - General 10/08/23 documented as of this encounter
--- OUTSIDE RECORDS SUMMARY | 2024-07-14 15:54 | XMS_ITS | Encounter Summary ---
Author Organization [employer] Address [address] [place] [address] Care Team Providers Care Seismograph Operator Name Role Phone Brea Maciel MD Primary Care Provider [phone] Reason for Visit * Reason Comments OTV Encounter Details Date Type Department Care Team (Latest Contact Info) Description 06/27/2024 1:24 PM EST - 06/27/2024 11:59 PM EST Hospital Encounter [facility] Radiation Oncology [address] [phone] Leyla Flanagan MD [address] [place] [address] Primary squamous cell carcinoma of lower gingiva [...] EST Accompanied by: self and in demand engraver flatware Bg # [id number] Subjective: Are you experiencing any fatigue? No [...] beans and chicken. Are you seeing a operations officer afloat or speech language pathologist? Yes Does patient [...] extractions by Dr. Lu at [facility] STAGE: Cancer Staging Primary squamous cell [...] Chang Accompanied by: self and in demand engraver flatware Bg # [id number] Subjective: Are you experiencing any fatigue? No [...] beans and chicken. Are you seeing a operations officer afloat or speech language pathologist? Yes Does patient [...] moisturizer once daily on neck. 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
--- OUTSIDE RECORDS SUMMARY | 2024-07-14 15:54 | XMS_ITS | Encounter Summary ---
Author Organization [employer] Address [address] [place] [address] Care Team Providers Care Mosaicist Name Role Phone Brea Maciel MD Primary Care Provider [phone] Encounter Details Date Type Department Care Team (Latest Contact Info) Description 06/27/2024 1:06 PM EST - 06/27/2024 11:59 PM EST Hospital Encounter [facility] Radiation Oncology [address] [phone] Discharge Disposition: Home or Self Care Social [...] Info) Description 08/06/2024 1:30 PM EST Appointment [facility] Radiation Oncology [address] [phone] Micaela Sandhu NP [address] [place] [address] [place] [address] 08/11/2024 1:30 PM EDT Office Visit [facility] Hematology Oncology [address] [place] [phone] Tawana Chang MD [address] [place] [address] documented as of this encounter Procedures Procedure [...] on filedocumented in this encounter Care Teams Mosaicist Relationship Specialty Start Date End Date Brea Maciel MD [address] [place] [address] PCP - General 10/08/23 documented as of this encounter
== END 2024-07-14 15:03 | disposition home or self-care (01) ==
PROVIDERS: PCP Family Medicine; Visit Provider Internal Medicine Nephrology
DX: E11.21 Type 2 diabetes mellitus with diabetic nephropathy (principal); I10 Essential (primary) hypertension; N18.31 Chronic kidney disease, stage 3a
CPT/HCPCS: 99214

== ENCOUNTER 2024-07-15 14:32 | Outpatient (REF) | payer OTHER, SELFPAY ==
--- OUTSIDE RECORDS SUMMARY | 2024-07-15 15:27 | XMS_ITS ---
Author Organization [facility] Address [address] [place] [address] Phone Care Team Providers Care Press Supervisor Name Role Phone Brea Maciel MD Primary Care Provider [phone] Active Problems Problem Noted Date Diagnosed Date Primary insomnia 04/16/2024 Primary squamous cell carcinoma of lower gingiva 02/12/2024 Cancer Staging:Pathologic:Stage AB(pT4a, pN0, cM0) - Unsigned Overview (04/18/2024): 69 y.o. 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
--- OUTSIDE RECORDS SUMMARY | 2024-07-15 15:27 | XMS_ITS | Clinical Summary ---
Author Organization [facility] Address [address] [place] [address] Care Team Providers Care Ems Coordinator Name Role Phone LennieLoriefrances ESTRADA Primary Care Provider [phone] Apple Villatoro DO Unavailable [phone] Allergies Active Allergy Reactions Criticality Noted [...] See Admin Instructions. Active Continuous Blood Gluc Perianesthesia Nurse (FreeStyle Marlen 2 [place]) Device 1 PER YEAR Active Continuous Blood Gluc Sensor (FreeStyle Marlen 2 Sensor) [facility] See Admin Instructions. 10/28/2021 Active ibuprofen (MOTRIN) [...] Comprehensive Metabolic Panel (02/28/2023 1:22 PM EDT) [facility] Signature Glucose 409(HH) 65 - 99 mg/dL 02/28/2023 2:17 PM EDT [facility] Comment:Fasting: <100 mg/dL, Non-Fasting: <200 mg/dL [...] LAB BLOOD ORDERABLES HOSPITAL LAB See Below [facility] [address] [place] [address] * POCT Microalbumin (02/12/2023 10:37 AM EDT) Microalbumin, POC 10.0 MG/L Creatinine Urine, POC 100.0 MG/DL Microalbumin/Cr eat Ratio, POC <30 MG/G Lot Number [id number] Account Contact Associate Pass Pass Urine 02/12/2023 10:3 7 AM [...] as now presented. Jennifer Monterroso MD [facility] [place] ORDERABLES * Lipid Panel (AM) (03/06/2018 [...] Decision Thoroughly Discussed with: Patient Care Teams Ems Coordinator Relationship Specialty Start Date End Date Laura Hogue APRN [address] [place] [address] PCP - General Family Medicine 09/04/19 Apple Villatoro DO [address] [place] [address] Plisse Machine Operator Cardiovascular Disease 04/12/23
--- OUTSIDE RECORDS SUMMARY | 2024-07-15 15:27 | XMS_ITS | Encounter Summary ---
Author Organization [employer] Address [address] [facility] 7t [place] [address] Care Team Providers Care Busperson Name Role Phone Brea Maciel MD Primary Care Provider [phone] Reason for Visit * Reason Comments Pre-visit Planning SDOH positive, Tobac co screening negative. Encounter Details Date Type Department Care Team ([facility] st Contact Info) Description 07/02/2024 Patient Outreach [facility] MED & PEDS [address] [place], [place] [phone] Brea Maciel MD [address] [place] [address] Pre-visit Planning (SDOH positive, Tobacco screening negative.) [...] 1:15 PM EDT Office Visit [facility]EDS [address] [place], [place] [phone] Santosh Walker MD [address] [place] [address] documented as of this encounter Visit Diagnoses Not on filedocumented in this encounter Additional Health Concerns Assessment Noted Time PHQ-9 Depression Total Score: 10 024 11:21 AM EDT documented as of this encounter Care Teams Busperson Relationship Specialty Start Date End Date Brea Maciel MD [address] [place] [address] PCP - General Family Medicine 09/21/23 documented as of this encounter
--- OUTSIDE RECORDS SUMMARY | 2024-07-15 15:27 | XMS_ITS | Encounter Summary ---
Author Organization [facility] Address [address] [place] [address] Care Team Providers Care Aerial Crop Duster Name Role Phone Jaylene Kogn MD Primary Care Provider [phone] Charis Liz PA-C Primary Care Provider [phone] Laura Hogue APRN Primary Care Provider [phone] Apple Villatoro DO Unavailable [phone] Encounter Details Date Type Department Care Team (Late st Contact Info) Description 11/25/2015 Scanned Document [address] [address] Provider, Generic Social History Tobacco [...] documented as of this encounter Care Teams Aerial Crop Duster Relationship Specialty Start Date End Date Jaylene Kong MD [address] [place] [address] PCP - General Internal Medicine 09/28/15 04/04/17 Charis Liz PA-C [address] [place] [address] PCP - General 04/05/17 09/03/19 Laura Hogue APRN [address] [place] [address] PCP - General Family Medicine 09/04/19 Apple Villatoro DO [address] [place] [address] Toddler Guide Cardiovascular Disease 04/12/23 documented as of this encounter
--- OUTSIDE RECORDS SUMMARY | 2024-07-15 15:27 | XMS_ITS ---
Author Organization [employer] Address [address] [place] [address] Care Team Providers Care Car Groomer Name Role Phone Laura Hogue Primary Care Provider [phone] REASON FOR VISIT Mail returned Social History Sex Assigned At : Social History Observation Description Sex Assigned At Male Encounters Encounter Location Date Provider Diagnosis 21-Internal Medicine [address] [place] [phone] 05/17/2023 Laura Hogue Plan Of Treatment No Information Progress Notes * Feliciano ORTIZ MDOB: 1955 (68 yo M)Acc No.[id number]:05/17/2023 Patient:?Steven ORTIZ :1955???Age:68 Y???Sex:Male Address:[address] [place] [address] , [address], [place], [address] * true * Date:? Generated for Enricoi margy/Kanwal/eTransmitting on:?07/15/2024 03:27 PM EST
--- OUTSIDE RECORDS SUMMARY | 2024-07-15 15:27 | XMS_ITS | Encounter Summary ---
Author Organization [employer] Address [address] [place] [address] Care Team Providers Care Package Car Driver Name Role Phone Brea Maciel MD Primary Care Provider [phone] Encounter Details Date Type Department Care Team (Latest Contact Info) Description 07/11/2024 1:12 PM EST - 07/11/2024 11:59 PM EST Hospital Encounter [facility] Radiation Oncology [address] [phone] Discharge Disposition: Home or Self Care Social [...] mouth or throat 4 times daily. 04/10/2024 documented as of this encounter Discharge Disposition Disposition Code Departure Means Destination Home or Self Care documented in this encounter Plan of Treatment Upcoming Encounters Date Type Department Care Team (Late st Contact Info) Description 08/06/2024 1:30 PM EST Appointment [facility] Radiation Oncology [address] [phone] Micaela Sandhu NP [address] [place] [phone] 08/11/2024 1:30 PM EDT Office Visit [facility] Hematology Oncology [address] [place] [phone] Tawana Chang MD [address] [place] [address] documented as of this encounter Procedures Procedure [...] 07/11/2024 1:55 PM EST Physician Radiation Oncology MD RADIATION ONCOLO GY ORDERABLES Final Result [facility] documented in this encounter Visit Diagnoses Not on filedocumented in this encounter Care Teams Package Car Driver Relationship Specialty Start Date End Date Brea Maciel MD [address] [place] [address] PCP - General 10/08/23 documented as of this encounter
--- OUTSIDE RECORDS SUMMARY | 2024-07-15 15:27 | XMS_ITS | Encounter Summary ---
Author Organization [facility] Address [address] [facility] [address] 7t [place] [address] Care Team Providers Care Parks And Recreation Manager Name Role Phone Brea Maciel MD Primary Care Provider [phone] Reason for Visit * Reason Onset Date Comments FYI 06/17/2024 Encounter Details Date Type Department Care Team ([facility] st Contact Info) Description 06/17/2024 Telephone [facility] MEDICINE [address] [place] [address] Brea Maciel MD [address] [place] [address] Social History Tobacco Use Types Packs/Day Years [...] weeks. Contact Ayah for Verbal Order at [phone] documented in this encounter Plan of Treatment Upcoming Encounters Date Type Department Care Team (Late st Contact Info) Description 08/19/2024 1:15 PM EDT Office Visit [facility] CHC MED & PEDS [address] [place] [address] Santosh Walker MD [address] [place] [address] documented as of this encounter Visit Diagnoses Not on filedocumented in this encounter Additional Health Concerns Assessment Noted Time PHQ-9 Depression Total Score: 10 024 11:21 AM EDT documented as of this encounter Care Teams Parks And Recreation Manager Relationship Specialty Start Date End Date Brea Maciel MD [address] [place] [address] PCP - General Family Medicine 09/21/23 documented as of this encounter
--- OUTSIDE RECORDS SUMMARY | 2024-07-15 15:27 | XMS_ITS | Encounter Summary ---
Author Organization [facility] Address [address] [place] [address] Care Team Providers Care Reproduction Production Manager Name Role Phone Laura Hogue APRN Primary Care Provider [phone] Apple Villatoro DO Unavailable [phone] Encounter Details Date Type Department Care Team (Late st Contact Info) Description 03/01/2020 Scanned Document [facility] Colorectal Surgery [place] [address] [place] [phone] Laura Hogue APRN [address] [place], [place] [phone] Social History Tobacco Use Types Packs/Day Years [...] documented as of this encounter Care Teams Reproduction Production Manager Relationship Specialty Start Date End Date Laura Hogue APRN [address] [place] [address] PCP - General Family Medicine 09/04/19 Apple Villatoro DO [address] [place] [address] Metal Fence Erector Cardiovascular Disease 04/12/23 documented as of this encounter
--- OUTSIDE RECORDS SUMMARY | 2024-07-15 15:27 | XMS_ITS | Clinical Summary ---
Author Organization [facility] Address [address] [place] [address] Care Team Providers Care Older Adult Social Work Specialist Name Role Phone Charis Liz Primary Care Provider [phone] William Kaplan MD Unavailable Allergies Active Allergy [...] Information: ?Site ID: [id number] ?Name: [facility] ?Address: [address] [place] [address] ?Director: Roly Huerta M.D.,PhD us Robert Martinez MD [facility] ORDERABLES Lin l Result [facility] , [place] from Last 3 Months or Most Recently Relevant to Health Maintenance Insurance [address] [place] [address] MEDICAID [id number] MEDIC[place] PART A & B Care Teams Older Adult Social Work Specialist Relationship Specialty Start Date End Date Charis Liz PA [address] [place] [address] PCP - General Internal Medicine 12/11/18 William Kaplan MD [address] [place] [address] PCP - Insurance Payer PCP 02/02/23
--- OUTSIDE RECORDS SUMMARY | 2024-07-15 15:27 | XMS_ITS ---
Author Organization [facility] enter Address [address] [place] [address] Care Team Providers Care Steel Plate Printer Name Role Phone Laura Hogue Primary Care Provider [phone] Medications Medication SIG (Take, Route, Frequency, Duration) Notes Start Date End Date Status Lantus SoloStar 100 UNIT/ML INJECT 60 UNITS UNDER THE SKIN EVERY DAY Subcutaneous daily for 100 days Please dispensed 4 boxes Active Social History Sex Assigned At : Social History Observation Description Sex Assigned At Male Encounters Encounter Location Date Provider Diagnosis [address] [address] 05/25/2023 Laura Hogue Type 2 diabetes mellitus [...] Feliciano SANTANA MDOB: 1955 (68 yo M)Acc No.[id number]:05/25/2023 Patient:?Steven SANTANA :1955???Age:68 Y???Sex:Male Address:[address] [place] [address] , [address], [place], [address] * Refills? Refill Lantus SoloStar Solution Pen-injector, 100 UNIT/ML, Subcutaneous, 4 Packet, INJECT 60 UNITS UNDER THE SKIN EVERY DAY, daily, 100 days, Refills=3 * true * Date:? Generated for Topher ji/Kanwal/[place]ern[place] on:?07/15/2024 03:27 PM EST
--- OUTSIDE RECORDS SUMMARY | 2024-07-15 15:27 | XMS_ITS | Encounter Summary ---
Author Organization [employer] Address [address] [place] [address] Care Team Providers Care Agricultural Inspector Name Role Phone Brea Maciel MD Primary Care Provider [phone] Reason for Visit * Reason Comments OTV Nurse discharge Encounter Details Date Type Department Care Team (Latest Contact Info) Description 07/11/2024 1:50 PM EST - 07/11/2024 11:59 PM EST Hospital Encounter [facility] Radiation Oncology [address] [phone] Leyla Flanagan MD [address] [place] [address] Primary squamous cell carcinoma of lower gingiva [...] from the original note were not included. [address] [phone] Radiation Oncology Treatment Completion Patient Name: Feliciano [...] tracheostomy, teeth extractions by Dr. Lu at [facility] Site Summary: VMAT: Head and neck Treatment [...] Completed as planned Treatment Delay: Went to [facility] ER on 06/12/24 due to concern [...] dir??abdiel a la recepci??n para programar loya ibsi. Por favor comun??quese al [phone] opcion # 2 ante cualquier pregunta o [...] tracheostomy, teeth extractions by Dr. 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 Pt declined chemo. Med onc Dr. Chang Accompanied by: sister Marisol and two other people. national sales executive video #[id number] Subjective: Are you experiencing any fatigue? Yes [...] not eating much. Are you seeing a block bolter mule operator or speech language pathologist? Yes Does [...] and before bed. Keep flushing feeding tube. Splitting Machine Operator Helper consulted. Cont MMW for mouth Went to [facility] ER on 06/12/24 due to concern [...] Dr. 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
--- OUTSIDE RECORDS SUMMARY | 2024-07-15 15:28 | XMS_ITS | Clinical Summary ---
Author Organization [facility] Address [address] [place] [address] Care Team Providers Care E Commerce Specialist Name Role Phone Pcp, Chester Akbar MD Primary Care Provider [phone] Allergies Active Allergy Reactions Criticality Noted Date [...] Recent Progress Patient-Stated? Author Carry glucose tablets [facility] Kimberlyn Coyle, RN Take Novolog 5-10 minutes before each meal [facility] Kimberlyn Coyle, RN Schedule eye exam [facility] Kimberlyn Coyle, RN Check BG TID before breakfast, lunch and dinner and keep log [facility] Kimberlyn Coyle, RN Care Teams E Commerce Specialist Relationship Specialty Start Date End Date Pcp, Chester Akbar MD [address] [place] [address] PCP - General Bleaching Machine Operator 08/17/21
--- OUTSIDE RECORDS SUMMARY | 2024-07-15 15:28 | XMS_ITS | Encounter Summary ---
Author Organization [employer] Address [address] [place] [address] Care Team Providers Care Wood And Hardware Outfitter Name Role Phone Brea Maciel MD Primary Care Provider Reason for Visit * Reason Comments OTV Encounter Details Date Type Department Care Team (Latest Contact Info) Description 07/04/2024 1:50 PM EST - 07/04/2024 11:59 PM EST Hospital Encounter [facility] Radiation Oncology [address] [address] Leyla Flanagan MD [address] [place] [address] Primary squamous cell carcinoma of lower gingiva [...] mouth or throat 4 times daily. 04/10/2024 nystatin (MYCOSTATIN) 100,000 unit/mL suspension Take 5 [...] not eating much. Are you seeing a stock clerk self service store or speech language pathologist? Yes Does patient [...] tracheostomy, teeth extractions by Dr. Lu at [facility] STAGE: Cancer Staging Primary squamous cell [...] not eating much. Are you seeing a stock clerk self service store or speech language pathologist? Yes Does patient [...] Keep flushing feeding tube. Start using feedings. Director Of Accounts Receivable consulted. 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
--- OUTSIDE RECORDS SUMMARY | 2024-07-15 15:28 | XMS_ITS | Encounter Summary ---
Author Organization [employer] Address [address] [place] [address] Care Team Providers Care Clearing Distribution Clerk Name Role Phone Brea Maciel MD Primary Care Provider [phone] Encounter Details Date Type Department Care Team (Latest Contact Info) Description 07/08/2024 1:09 PM EST - 07/08/2024 11:59 PM EST Hospital Encounter [facility] Radiation Oncology [address] [phone] Discharge Disposition: Home or Self Care Social [...] Info) Description 08/06/2024 1:30 PM EST Appointment [facility] Radiation Oncology [address] [place] [phone] Micaela Sandhu NP [address] [place] [address] [place] [phone] 08/11/2024 1:30 PM EDT Office Visit [facility] Hematology Oncology [address] [place] [phone] Tawana Chang MD [address] [place] [address] documented as of this encounter Procedures Procedure [...] on filedocumented in this encounter Care Teams Clearing Distribution Clerk Relationship Specialty Start Date End Date Brea Maciel MD [address] [place] [address] PCP - General 10/08/23 documented as of this encounter
--- OUTSIDE RECORDS SUMMARY | 2024-07-15 15:28 | XMS_ITS | Encounter Summary ---
Author Organization [employer] Address [address] [place] [address] Care Team Providers Care Tank Calibrator Name Role Phone Brea Maciel MD Primary Care Provider Encounter Details Date Type Department Care Team (Latest Contact Info) Description 07/07/2024 12:53 PM EST - 07/07/2024 11:59 PM EST Hospital Encounter [facility] Radiation Oncology [address] [phone] Discharge Disposition: Home or Self Care Social [...] Info) Description 08/06/2024 1:30 PM EST Appointment [facility] Radiation Oncology [address] [place] [phone] Micaela Sandhu NP [address] [place] [address] [place] [phone] 08/11/2024 1:30 PM EDT Office Visit [facility] Hematology Oncology [address] [place] [phone] Tawana Chang MD [address] [place] [address] documented as of this encounter Procedures Procedure [...] on filedocumented in this encounter Care Teams Tank Calibrator Relationship Specialty Start Date End Date Brea Maciel MD [address] [place] [address] PCP - General 10/08/23 documented as of this encounter
--- OUTSIDE RECORDS SUMMARY | 2024-07-15 15:28 | XMS_ITS | Encounter Summary ---
Author Organization [employer] Address [address] [place] [address] Care Team Providers Care Supervisor Winding Department Name Role Phone Brea Maciel MD Primary Care Provider [phone] Encounter Details Date Type Department Care Team (Late st Contact Info) Description 07/08/2024 [facility] Radiation Oncology [address] [facility] [address] [place] [address] Brea Plunkett, ROSIBEL Social History [...] EST Met with pt using in demand wind energy project manager Kenyon # [id number] to teach him how to use/apply hydrogel [...] Description 08/06/2024 1:30 PM EST Appointment [facility] Radiation Oncology [address] [phone] Micaela Sandhu NP [address] [place] [phone] 08/11/2024 1:30 PM EDT Office Visit [facility] Hematology Oncology [address] [place] [phone] Tawana Chang MD [address] [place] [address] documented as of this encounter Visit Diagnoses Not on filedocumented in this encounter Care Teams Supervisor Winding Department Relationship Specialty Start Date End Date Brea Maciel MD [address] [place] [address] PCP - General 10/08/23 documented as of this encounter
--- OUTSIDE RECORDS SUMMARY | 2024-07-15 15:28 | XMS_ITS | Encounter Summary ---
Author Organization [employer] Address [address] [place] [address] Care Team Providers Care Hot Wire Glass Tube Cutter Name Role Phone Brea Maciel MD Primary Care Provider [phone] Encounter Details Date Type Department Care Team (Latest Contact Info) Description 07/10/2024 11:10 AM EST - 07/10/2024 11:59 PM EST Hospital Encounter [facility] Radiation Oncology [address] [phone] Discharge Disposition: Home or Self Care Social [...] Info) Description 08/06/2024 1:30 PM EST Appointment [facility] Radiation Oncology [address] [place] [phone] Micaela Sandhu NP [address] [place] [address] [place] [phone] 08/11/2024 1:30 PM EDT Office Visit [facility] Hematology Oncology [address] [place] [phone] Tawana Chang MD [address] [place] [address] documented as of this encounter Procedures Procedure [...] on filedocumented in this encounter Care Teams Hot Wire Glass Tube Cutter Relationship Specialty Start Date End Date Brea Maciel MD [address] [place] [address] PCP - General 10/08/23 documented as of this encounter
--- OUTSIDE RECORDS SUMMARY | 2024-07-15 15:28 | XMS_ITS | Encounter Summary ---
Author Organization [employer] Address [address] [place] [address] Care Team Providers Care Lock Installer Name Role Phone Brea Maciel MD Primary Care Provider [phone] Encounter Details Date Type Department Care Team (Latest Contact Info) Description 06/30/2024 12:41 PM EST - 06/30/2024 11:59 PM EST Hospital Encounter [facility] Radiation Oncology [address] [phone] Discharge Disposition: Home or Self Care Social [...] Info) Description 08/06/2024 1:30 PM EST Appointment [facility] Radiation Oncology [address] [phone] Micaela Sandhu NP [address] [place] [address] [place] [address] 08/11/2024 1:30 PM EDT Office Visit [facility] Hematology Oncology [address] [place] [address] Tawana Chang MD [address] [place] [address] documented as of this encounter Procedures Procedure [...] on filedocumented in this encounter Care Teams Lock Installer Relationship Specialty Start Date End Date Brea Maciel MD [address] [place] [address] PCP - General 10/08/23 documented as of this encounter
--- OUTSIDE RECORDS SUMMARY | 2024-07-15 15:28 | XMS_ITS | Encounter Summary ---
Author Organization [employer] Address [address] [place] [address] Care Team Providers Care Control Room Helper Name Role Phone Brea Maciel MD Primary Care Provider [phone] Reason for Visit * Reason Comments OTV Encounter Details Date Type Department Care Team (Latest Contact Info) Description 06/30/2024 1:26 PM EST - 06/30/2024 11:59 PM EST Hospital Encounter [facility] Radiation Oncology [address] [facility] 2nd [place] [phone] Lázaro Campuzano MD [address] [facility] [address] [place] [address] Head and neck cancer (CMS/HCC) (Primary Dx) [...] tracheostomy, teeth extractions by Dr. Lu at [facility] STAGE: Cancer Staging Primary squamous cell [...] Chang Accompanied by: self and in demand hosiery repairer Bg # [id number] Subjective: Are you experiencing any fatigue? No [...] beans and chicken. Are you seeing a gravedigger or speech language pathologist? Yes Does patient [...] moisturizer once daily on neck. Went to [facility] ER on 06/12/24 due to [...] EST Appointment [facility] Radiation Oncology [address] [place] [phone] Miceala Sandhu NP [address] [place] [address] [facility] [place] [address] 08/11/2024 1:30 PM EDT Office Visit [facility] Hematology Oncology [address] [place] [phone] Tawana Chang MD [address] [place] [address] documented as of this encounter Visit Diagnoses Diagnosis Head and neck cancer (CMS/HCC)- Primary documented in this encounter Care Teams Control Room Helper Relationship Specialty Start Date End Date Brea Maciel MD [address] [place] [phone] PCP - General 10/08/23 documented as of this encounter
--- OUTSIDE RECORDS SUMMARY | 2024-07-15 15:28 | XMS_ITS | Encounter Summary ---
Author Organization [employer] Address [address] [place] [address] Care Team Providers Care Family Law Specialist Name Role Phone Brea Maciel MD Primary Care Provider [phone] Encounter Details Date Type Department Care Team (Latest Contact Info) Description 06/24/2024 1:05 PM EST - 06/24/2024 11:59 PM EST Hospital Encounter [facility] Radiation Oncology [address] [phone] Discharge Disposition: Home or Self Care Social [...] Info) Description 08/06/2024 1:30 PM EST Appointment [facility] Radiation Oncology [address] [phone] Micaela Sandhu NP [address] [place] [address] [address] [place] [phone] 08/11/2024 1:30 PM EDT Office Visit [facility] Hematology Oncology [address] [place] [address] Tawana Chang MD [address] [place] [address] documented as of this encounter Procedures Procedure [...] on filedocumented in this encounter Care Teams Family Law Specialist Relationship Specialty Start Date End Date Brea Maciel MD [address] [place] [phone] PCP - General 10/08/23 documented as of this encounter
--- OUTSIDE RECORDS SUMMARY | 2024-07-15 15:28 | XMS_ITS | Encounter Summary ---
Author Organization [employer] Address [address] [place] [address] Care Team Providers Care Branch Office Administrator Name Role Phone Brea Maciel MD Primary Care Provider [phone] Encounter Details Date Type Department Care Team (Latest Contact Info) Description 06/27/2024 1:06 PM EST - 06/27/2024 11:59 PM EST Hospital Encounter [facility] Radiation Oncology [address] [phone] Discharge Disposition: Home or Self Care Social [...] Info) Description 08/06/2024 1:30 PM EST Appointment [facility] Radiation Oncology [address] [phone] Micaela Sandhu NP [address] [place] [address] [place] [address] 08/11/2024 1:30 PM EDT Office Visit [facility] Hematology Oncology [address] [place] [address] Tawana Chang MD [address] [place] [address] documented as of this encounter Procedures Procedure [...] on filedocumented in this encounter Care Teams Branch Office Administrator Relationship Specialty Start Date End Date Brea Maciel MD [address] [place] [address] PCP - General 10/08/23 documented as of this encounter
--- OUTSIDE RECORDS SUMMARY | 2024-07-15 15:28 | XMS_ITS | Encounter Summary ---
Author Organization [employer] Address [address] [place] [address] Care Team Providers Care Soil Conservationist Name Role Phone Brea Maciel MD Primary Care Provider [phone] Encounter Details Date Type Department Care Team (Latest Contact Info) Description 07/02/2024 1:08 PM EST - 07/02/2024 11:59 PM EST Hospital Encounter [facility] Radiation Oncology [address] [phone] Discharge Disposition: Home or Self Care Social [...] Description 08/06/2024 1:30 PM EST Appointment [facility] Radiation Oncology [address] [phone] Micaela Sandhu NP [address] [place] [address] [place] [phone] 08/11/2024 1:30 PM EDT Office Visit [facility] Hematology Oncology [address] [place] [address] Tawana Chang MD [address] [place] [address] documented as of this encounter Procedures Procedure [...] on filedocumented in this encounter Care Teams Soil Conservationist Relationship Specialty Start Date End Date Brea Maciel MD [address] [place] [address] PCP - General 10/08/23 documented as of this encounter
--- OUTSIDE RECORDS SUMMARY | 2024-07-15 15:28 | XMS_ITS | Encounter Summary ---
Author Organization [employer] Address [address] [place] [address] Care Team Providers Care Stone Operator Name Role Phone Brea Maciel MD Primary Care Provider [phone] Encounter Details Date Type Department Care Team (Latest Contact Info) Description 07/09/2024 1:22 PM EST - 07/09/2024 11:59 PM EST Hospital Encounter [facility] Radiation Oncology [address] [phone] Discharge Disposition: Home or Self Care Social [...] Description 08/06/2024 1:[address] [facility] Radiation Oncology [address] [place] [phone] Micaela Sandhu NP [address] [place] [address] [place] [phone] 08/11/2024 1:30 PM EDT Office Visit [facility] Hematology Oncology [address] [place] [phone] Tawana Chang MD [address] [place] [address] documented as of this encounter Procedures Procedure [...] on filedocumented in this encounter Care Teams Stone Operator Relationship Specialty Start Date End Date Brea Maciel MD [address] [place] [address] PCP - General 10/08/23 documented as of this encounter
--- OUTSIDE RECORDS SUMMARY | 2024-07-15 15:28 | XMS_ITS | Encounter Summary ---
Author Organization [employer] Address [address] [place] [address] Care Team Providers Care Energy Manager Name Role Phone Brea Maciel MD Primary Care Provider [phone] Encounter Details Date Type Department Care Team (Latest Contact Info) Description 06/25/2024 1:03 PM EST - 06/25/2024 11:59 PM EST Hospital Encounter [facility] Radiation Oncology [address] [phone] Discharge Disposition: Home or Self Care Social [...] Info) Description 08/06/2024 1:30 PM EST Appointment [facility] Radiation Oncology [address] [phone] Micaela Sandhu NP [address] [place] [address] [address] [place] [phone] 08/11/2024 1:30 PM EDT Office Visit [facility] Hematology Oncology [address] [place] [address] Tawana Chang MD [address] [place] [address] documented as of this encounter Procedures Procedure [...] on filedocumented in this encounter Care Teams Energy Manager Relationship Specialty Start Date End Date Brea Maciel MD [address] [place] [phone] PCP - General 10/08/23 documented as of this encounter
--- OUTSIDE RECORDS SUMMARY | 2024-07-15 15:28 | XMS_ITS | Encounter Summary ---
Author Organization [employer] Address [address] [place] [address] Care Team Providers Care Regional Owner Operator Truck Driver Name Role Phone Brea Maciel MD Primary Care Provider [phone] Encounter Details Date Type Department Care Team (Latest Contact Info) Description 07/01/2024 1:07 PM EST - 07/01/2024 11:59 PM EST Hospital Encounter [facility] Radiation Oncology [address] [phone] Discharge Disposition: Home or Self Care Social [...] [facility] Radiation Oncology [address] [phone] Micaela Sandhu NP [address] [place] [address] [place] [phone] 08/11/2024 1:30 PM EDT Office Visit [facility] Hematology Oncology [address] [place] [address] Tawana Chang MD [address] [place] [address] documented as of this encounter Procedures Procedure [...] on filedocumented in this encounter Care Teams Regional Owner Operator Truck Driver Relationship Specialty Start Date End Date Brea Maciel MD [address] [place] [address] PCP - General 10/08/23 documented as of this encounter
--- OUTSIDE RECORDS SUMMARY | 2024-07-15 15:28 | XMS_ITS | Encounter Summary ---
Author Organization [employer] Address [address] [place] [address] Care Team Providers Care Blueprint Assembler Name Role Phone Brea Maciel MD Primary Care Provider [phone] Encounter Details Date Type Department Care Team (Latest Contact Info) Description 07/03/2024 12:51 PM EST - 07/03/2024 11:59 PM EST Hospital Encounter [facility] Radiation Oncology [address] [phone] Discharge Disposition: Home or Self Care Social [...] [facility] [address] [phone] Micaela Sandhu NP [address] [place] [address] [place] [address] 08/11/2024 1:30 PM EDT Office Visit [facility] Hematology Oncology [address] [place] [address] Tawana Chang MD [address] [place] [address] documented as of this encounter Procedures Procedure [...] on filedocumented in this encounter Care Teams Blueprint Assembler Relationship Specialty Start Date End Date Brea Maciel MD [address] [place] [phone] PCP - General 10/08/23 documented as of this encounter
--- OUTSIDE RECORDS SUMMARY | 2024-07-15 15:28 | XMS_ITS | Clinical Summary ---
Author Organization [facility] Address [address] [place] [address] Phone Care Team Providers Care Tool Lathe Operator Name Role Phone Brea Maciel MD Primary Care Provider [phone] Allergies No known active allergies Medications dulaglutide [...] (04/18/2024): 69 y.o. 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) Discharge Disposition: Home or Self Care 07/11/2024 1:12 PM EST - 07/11/2024 11:59 PM EST Hospital Encounter [facility] Radiation Oncology [address] [phone] Discharge Disposition: Home or Self Care 07/10/2024 11:10 AM EST - 07/10/2024 11:59 PM EST Hospital Encounter [facility] Radiation Oncology [address] [place] [phone] Discharge Disposition: Home or Self Care 07/09/2024 1:22 PM EST - 07/09/2024 11:59 PM EST Hospital Encounter [facility] Radiation Oncology [address] [place] [phone] Discharge Disposition: Home or Self Care 07/08/2024 1:09 PM EST - 07/08/2024 11:59 PM EST Hospital Encounter [facility] Radiation Oncology [address] [place] [phone] Discharge Disposition: Home or Self Care 07/08/2024 [facility] Radiation Oncology [address] [place] [phone] Brea Plunkett RN 07/07/2024 12:53 PM EST - 07/07/2024 11:59 PM EST Hospital Encounter [facility] Radiation Oncology [address] [place] [phone] Discharge Disposition: Home or Self Care 07/04/2024 1:50 PM EST - 07/04/2024 11:59 PM EST Hospital Encounter [facility] Radiation Oncology [address] [place] [phone] Leyla Flanagan MD 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) Discharge Disposition: Home or Self Care 07/04/2024 1:00 PM EST - 07/04/2024 11:59 PM EST Hospital Encounter [facility] Radiation Oncology [address] [place] [phone] Discharge Disposition: Home or Self Care 07/03/2024 12:51 PM EST - 07/03/2024 11:59 PM EST Hospital Encounter [facility] Radiation Oncology [address] [place] [phone] Discharge Disposition: Home or Self Care 07/02/2024 1:08 PM EST - 07/02/2024 11:59 PM EST Hospital Encounter [facility] Radiation Oncology [address] [place] [phone] Discharge Disposition: Home or Self Care 07/01/2024 1:07 PM EST - 07/01/2024 11:59 PM EST Hospital Encounter [facility] Radiation Oncology [address] [place] [phone] Discharge Disposition: Home or Self Care 06/30/2024 1:26 PM EST - 06/30/2024 11:59 PM EST Hospital Encounter [facility] Radiation Oncology [address] [place] [phone] Lázaro Campuzano MD Head and neck cancer (CMS/HCC) (Primary Dx) Discharge Disposition: Home or Self Care 06/30/2024 12:41 PM EST - 06/30/2024 11:59 PM EST Hospital Encounter [facility] Radiation Oncology [address] [place] [phone] Discharge Disposition: Home or Self Care 06/27/2024 1:24 PM EST - 06/27/2024 11:59 PM EST Hospital Encounter [facility] Radiation Oncology [address] [place] [phone] Leyla Flanagan MD 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) Discharge Disposition: Home or Self Care 06/27/2024 1:06 PM EST - 06/27/2024 11:59 PM EST Hospital Encounter [facility] Radiation Oncology [address] [place] [phone] Discharge Disposition: Home or Self Care 06/26/2024 1:00 PM EST - 06/26/2024 11:59 PM EST Hospital Encounter [facility] Radiation Oncology [address] [place] [phone] Discharge Disposition: Home or Self Care 06/25/2024 1:03 PM EST - 06/25/2024 11:59 PM EST Hospital Encounter [facility] Radiation Oncology [address] [place] [phone] Discharge Disposition: Home or Self Care 06/24/2024 1:05 PM EST - 06/24/2024 11:59 PM EST Hospital Encounter [facility] Radiation Oncology [address] [place] [phone] Discharge Disposition: Home or Self Care 06/23/2024 1:12 PM EST - 06/23/2024 11:59 PM EST Hospital Encounter [facility] Radiation Oncology [address] [place] [phone] Discharge Disposition: Home or Self Care 06/19/2024 12:41 PM EST - 06/19/2024 11:59 PM EST Hospital Encounter [facility] Radiation Oncology [address] [place] [phone] Discharge Disposition: Home or Self Care 06/18/2024 12:23 PM EST - 06/18/2024 11:59 PM EST Hospital Encounter [facility] Radiation Oncology [address] [place] [phone] Discharge Disposition: Home or Self Care 06/17/2024 1:26 PM EST - 06/17/2024 11:59 PM EST Hospital Encounter [facility] Radiation Oncology [address] [place] [phone] Leyla Flanagan MD 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) Discharge Disposition: Home or Self Care 06/17/2024 12:41 PM EST - 06/17/2024 11:59 PM EST Hospital Encounter [facility] Radiation Oncology [address] [place] [phone] Discharge Disposition: Home or Self Care 06/16/2024 12:40 PM EST - 06/16/2024 11:59 PM EST Hospital Encounter [facility] Radiation Oncology [address] [place] [phone] Discharge Disposition: Home or Self Care 06/16/2024 Telephone [facility] Radiation Oncology [address] [place] [phone] Micaela Sandhu NP 06/13/2024 Telephone [facility] Radiation Oncology [address] [phone] Leyla Flanagan MD 06/12/2024 11:49 AM EST - 06/12/2024 8:11 PM EST Emergency [facility] Emergency [address] [place] [phone] Clem Merrill MD Right facial swelling (Primary Dx); Radiation adverse effect, initial encounter Discharge Disposition: Home or Self Care 06/11/2024 12:36 PM EST - 06/11/2024 11:59 PM EST Hospital Encounter [facility] Radiation Oncology [address] [phone] Discharge Disposition: Home or Self Care 06/10/2024 12:49 PM EST - 06/10/2024 11:59 PM EST Hospital Encounter [facility] Radiation Oncology [address] [place] [phone] Discharge Disposition: Home or Self Care 06/09/2024 12:47 PM EST - 06/09/2024 11:59 PM EST Hospital Encounter [facility] Radiation Oncology [address] [place] [phone] Discharge Disposition: Home or Self Care 06/06/2024 1:50 PM EST - 06/06/2024 11:59 PM EST Hospital Encounter [facility] Radiation Oncology [address] [place] [phone] Leyla Flanagan MD 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) Discharge Disposition: Home or Self Care 06/06/2024 12:37 PM EST - 06/06/2024 11:59 PM EST Hospital Encounter [facility] Radiation Oncology [address] [place] [phone] Discharge Disposition: Home or Self Care 06/05/2024 1:04 PM EST - 06/05/2024 11:59 PM EST Hospital Encounter [facility] Radiation Oncology [address] [place] [phone] Discharge Disposition: Home or Self Care 06/03/2024 12:51 PM EST - 06/03/2024 11:59 PM EST Hospital Encounter [facility] Radiation Oncology [address] [place] [phone] Discharge Disposition: Home or Self Care 06/02/2024 12:32 PM EST - 06/02/2024 11:59 PM EST Hospital Encounter [facility] Radiation Oncology [address] [place] [phone] Discharge Disposition: Home or Self Care 05/30/2024 1:28 PM EST - 05/30/2024 11:59 PM EST Hospital Encounter [facility] Radiation Oncology [address] [place] [phone] Micha Wong MD 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) Discharge Disposition: Home or Self Care 05/26/2024 1:06 PM EST - 05/26/2024 11:59 PM EST Hospital Encounter [facility] Radiation Oncology [address] [place] [phone] Discharge Disposition: Home or Self Care 05/23/2024 12:45 PM EST - 05/23/2024 11:59 PM EST Hospital Encounter [facility] Radiation Oncology [address] [place] [phone] Leyla Flanagan MD 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) Discharge Disposition: Home or Self Care 05/23/2024 12:13 PM EST - 05/23/2024 11:59 PM EST Hospital Encounter [facility] Radiation Oncology [address] [place] [phone] Leyla Flanagan MD Discharge Disposition: Home or Self Care 05/22/2024 7:57 AM EST - 05/22/2024 11:59 PM EST Hospital Encounter [facility] Radiation Oncology [address] [place] [phone] Discharge Disposition: Home or Self Care 05/21/2024 [facility] Radiation Oncology [address] [phone] Rose Mary Holland RN 05/08/2024 9:00 AM EST - 05/08/2024 11:59 PM EST Hospital Encounter [facility] Radiation Oncology [address] [place] [phone] Leyla Flanagan MD 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) Discharge Disposition: Home or Self Care 05/08/2024 8:15 AM EST - 05/08/2024 11:59 PM EST Hospital Encounter [facility] Radiation Oncology [address] [place] [phone] 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) Discharge Disposition: Home or Self Care 05/07/2024 1:45 PM EST Office Visit [facility] Hematology Oncology [address] [place] [phone] Tawana Chang MD 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) 05/06/2024 9:28 AM EST - 05/06/2024 11:59 PM EST Hospital Encounter [facility] CT Scan [address] [place] [phone] 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) Discharge Disposition: Home or Self Care 04/24/2024 1:45 PM EST - 04/24/2024 11:59 PM EST Hospital Encounter [facility] Radiation Oncology [address] [place] [phone] Leyla Flanagan MD 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); Head and neck cancer (CMS/HCC) Discharge Disposition: Home or Self Care 04/24/2024 1:44 PM EST - 04/24/2024 11:59 PM EST Hospital Encounter [facility] Radiation Oncology [address] [place] [phone] Discharge Disposition: Home or Self Care 04/17/2024 2:00 PM EST Office Visit [facility] Hematology Oncology [address] [place] [phone] Tawana Chang MD Oral cancer ([facility]/HCC) 04/14/2024 Telephone [facility] Hematology Oncology [address] [place] [phone] Michael Starks [place] Referred to [...] History Date Comments Hypertension DX:Hypertension Diabetes mellitus ([facility]) DX:D iabetes mellitus ([facility]) Obstructive sleep apnea syndrome 08/18/2015 DX:Obstructive sleep apnea syndrome Arthritis DX:Arthritis Depression DX:Depression Chronic kidney disease DX:Chroni c kidney disease Prostate cancer ([facility]) DX:Pro state cancer ([facility]) Primary insomnia 04/16/2024 Family History Medical History [...] EST Appointment [facility] Radiation Oncology [address] [place] [phone] Micaela Sandhu NP [address] [place] [address] [address] [place] [phone] 08/11/2024 1:30 PM EDT Office Visit [facility] Hematology Oncology [address] [place] [phone] Tawana Chang MD [address] [place], [place] [phone] Health Maintenance Due Date Last Done Comments [...] Oncology RADIATION ONCJOHAN GY ORDERABLES Final Result Performing Organization Address City/[facility] Co de Phone Number [facility] RADIATION ONCOLOGY * Rad Onc Msq Treatment Summary (07/10/2024 12:03 PM EST) [facility] Treatment Site Rt lower gum/Bneck MOS[facility] RADIATION [...] GY ORDERABLES Final Result Performing Organization Address City/[facility] Co de Phone Number [facility] RADIATION ONCOLOGY * Rad Onc Msq Treatment Summary (06/27/2024 1:24 PM EST) Pathologist [facility] [...] 1:31 PM EST Physician Radiation Oncology RADIATION ONCOLO [...] 2:02 PM EST Physician Radiation Oncology RADIATION ONCJOHAN [...] 1:58 PM EST Physician Radiation Oncology RADIATION ONCJOHAN [...] Signed Date: 06/12/2024 16:45 ET Workstation ID: [id number] Transcribed By: Self Edit Transcribed Date: 06/12/2024 16:38 ET Narrative 06/12/2024 4:45 PM EST INDICATION: 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 Scanner: Adbrain 64 slice VCT Dose reduction technique: ASIR [...] 90 cc Isovue-370 administeredintravenously without incident. Scanner: Adbrain 64 slice VCT Dose reduction technique: ASIR [...] Signed Date: 06/12/2024 16:45 ET Workstation ID: [id number] Transcribed By: Self Edit Transcribed Date: 06/12/2024 16:38 ET Clem Merrill MD IMG CT PROCEDURES Final Result * Blood culture (06/12/2024 3:39 PM EST) [facility] Culture, Blood No growth at 5 days 06/17/2024 5:01 PM EST [facility] Blood Venous blood specimen / Unknown Venipuncture / Unknown 06/12/2024 3:39 PM EST 06/12/2024 3:49 PM EST [facility] MICROBIOLOGY - GENERAL ORDE RABLES Final Result Performing Organization Address [facility]/ZIP Co de Phone Number [facility] [address] [place] [address], * Lactate (06/12/2024 3:39 PM EST) [facility] Lactate 0.9 0.4 - 2.0 mmol/L LAB CHEMISTRY METHOD 06/12/2024 4:23 PM EST [facility] Blood Venous blood specimen / Unknown Venipuncture / Unknown 06/12/2024 3:39 PM EST 06/12/2024 3:50 PM EST Clemnicholas Merrill MD LAB BLOOD ORDERABLES Final Resu lt Performing Organization Address [facility]/ZIP Co de Phone Number [facility] [address] [place] [address], * (ABNORMAL) CBC auto differential (06/12/2024 10:58 AM EST) [facility] WBC 6.8 4.8 - 10.8 K/mcL LAB HEMETOLOGY METHOD 06/12/2024 11:19 AM [facility] RBC 5.80(H) 4.50 - 5.50 M/mcL LAB HEMETOLOGY METHOD 06/12/2024 11:19 AM [facility] Hemoglobin 12.8(L) 13.5 - 17.5 g/dL LAB HEMETOLOGY METHOD 06/12/2024 11:19 AM [facility] Hematocrit 41.7(L) 42.0 - 54.0 % LAB HEMETOLOGY METHOD 06/12/2024 11:19 AM [facility] MCV 72.0(L) 79.0 - 98.0 FL LAB HEMETOLOGY METHOD 06/12/2024 11:19 AM [facility] MCH 22.1(L) 27.0 - 32.0 pcg LAB HEMETOLOGY METHOD 06/12/2024 11:19 AM [facility] MCHC 30.7(L) 32.0 - 37.0 g/dL LAB HEMETOLOGY METHOD 06/12/2024 11:19 AM [facility] RDW 15.2(H) 11.0 - 15.0 % LAB HEMETOLOGY METHOD 06/12/2024 11:19 AM [facility] Platelets 257 130 - 400 K/mcL LAB HEMETOLOGY METHOD 06/12/2024 11:19 AM [facility] MPV 10.1 7.0 - 11.0 FL LAB HEMETOLOGY METHOD 06/12/2024 11:19 AM [facility] NRBC 0.0 <1.0 % LAB HEMETOLOGY METHOD 06/12/2024 11:19 AM [facility] NRBC Absolute 0.00 <0.10 K/mcL LAB HEMETOLOGY METHOD 06/12/2024 11:19 AM [facility] Neutrophils Relative 67.3 % LAB HEMETOLOGY METHOD 06/12/2024 11:19 AM [facility] Lymphocytes Relative 18.5 % LAB HEMETOLOGY METHOD 06/12/2024 11:19 AM [facility] Monocytes Relative 10.1 % LAB HEMETOLOGY METHOD 06/12/2024 11:19 AM [facility] Eosinophils Relative 3.1 % LAB HEMETOLOGY METHOD 06/12/2024 11:19 AM [facility] Basophils Relative 0.6 % LAB HEMETOLOGY METHOD 06/12/2024 11:19 AM [facility] Immature Granulocytes Relative 0.4 % LAB HEMETOLOGY METHOD 06/12/2024 11:19 AM [facility] Neutrophils Absolute 4.59 1.50 - 7.00 K/mcL LAB HEMETOLOGY METHOD 06/12/2024 11:19 AM [facility] Lymphocytes Absolute 1.26 1.00 - 5.00 K/mcL LAB HEMETOLOGY METHOD 06/12/2024 11:19 AM [facility] Monocytes Absolute 0.69 0.20 - 1.00 K/mcL LAB HEMETOLOGY METHOD 06/12/2024 11:19 AM [facility] Eosinophils Absolute 0.21 0.00 - 0.50 K/mcL LAB HEMETOLOGY METHOD 06/12/2024 11:19 AM [facility] Basophils Absolute 0.04 0.00 - 0.20 K/mcL LAB HEMETOLOGY METHOD 06/12/2024 11:19 AM [facility] Immature Granulocytes Absolute 0.03 0.00 - 0.03 K/mcL LAB HEMETOLOGY METHOD 06/12/2024 11:19 AM [facility] Blood Venous blood specimen / Unknown Venipuncture / Unknown 06/12/2024 10:58 AM EST 06/12/2024 11:10 AM EST us Clem B Merrill MD LAB BLOOD ORDERABLES Final Resu lt [facility] [address] [place] [address], * (ABNORMAL) Basic metabolic panel (06/12/2024 10:58 AM EST) Sodium 135 133 - 145 mmol/L LAB CHEMISTRY METHOD 06/12/2024 11:47 AM [facility] Potassium 4.2 3.5 - 5.5 mmol/L LAB CHEMISTRY METHOD 06/12/2024 11:47 AM [facility] Chloride 102 96 - 110 mmol/L LAB CHEMISTRY METHOD 06/12/2024 11:47 AM [facility] CO2 28 21 - 32 mmol/L LAB CHEMISTRY METHOD 06/12/2024 11:47 AM [facility] Anion Gap 5 3 - 11 LAB CHEMISTRY METHOD 06/12/2024 11:47 AM [facility] Glucose 218(H) 70 - 100 mg/dL LAB CHEMISTRY METHOD 06/12/2024 11:47 AM [facility] BUN 11 5 - 25 mg/dL LAB CHEMISTRY METHOD 06/12/2024 11:47 AM [facility] Creatinine 1.22 0.70 - 1.30 mg/dL LAB CHEMISTRY METHOD 06/12/2024 11:47 AM [facility] eGFR 65 >=60 mL/min/1. 73m2 LAB CHEMISTRY METHOD 06/12/2024 11:47 AM [facility] Comment:Calculation based on the??Chronic Kidney Disease Epidemiology Collaboration (CKD-EPI) equation refit??without adjustment for race. BUN/Creatinine Ratio 9.0 LAB CHEMISTRY METHOD 06/12/2024 11:47 AM [facility] Calcium 9.6 8.5 - 10.5 mg/dL LAB CHEMISTRY METHOD 06/12/2024 11:47 AM [facility] Blood Venous blood specimen / Unknown Venipuncture / Unknown 06/12/2024 10:58 AM EST 06/12/2024 11:10 AM EST Clem Merrill MD LAB BLOOD ORDERABLES Final Resu lt [facility] [address] [place] [address], * Rad Onc Msq Treatment Summary (06/11/2024 [...] 1:27 PM EST Physician Radiation Oncology RADIATION ONCOLO [...] 1:36 PM EST Physician Radiation Oncology RADIATION ONCJOHAN [...] 1:24 PM EST Physician Radiation Oncology RADIATION ONCOLO GY ORDERABLES Final Result Performing Organization Address City/[facility] Co de Phone Number [facility] RADIATION ONCOLOGY [...] GY ORDERABLES Final Result Performing Organization Address City/[facility] Co de Phone Number [facility] RADIATION ONCOLOGY from Last 3 Months Insurance [employer] MED[employer] Member Subscriber Plan / Payer (Ef fective 2019-Present) Name:Feliciano Santana Relation to Subscriber:Self Name:Feliciano Santana Payer ID:[id number] Group ID:[id number] Type:Not on file Address: [address] [facility] [place] [address] Care Teams Tool Lathe Operator Relationship Specialty Start Date End Date Brea Maciel MD [address] [place] [address] PCP - General 10/08/23
--- OUTSIDE RECORDS SUMMARY | 2024-07-15 15:28 | XMS_ITS | Encounter Summary ---
Author Organization [employer] Address [address] [place] [address] Care Team Providers Care Airplane Fueler Name Role Phone Brea Maciel MD Primary Care Provider [phone] Encounter Details Date Type Department Care Team (Latest Contact Info) Description 07/04/2024 1:00 PM EST - 07/04/2024 11:59 PM EST Hospital Encounter [facility] Radiation Oncology [address] [phone] Discharge Disposition: Home or Self Care Social [...] Description 08/06/2024 1:30 PM EST Appointment [facility] Radiation Oncology [address] [place] [phone] Micaela Sandhu NP [address] [place] [address] [place] [phone] 08/11/2024 1:30 PM EDT Office Visit [facility] Hematology Oncology [address] [place] [phone] Tawana Chang MD [address] [place] [address] documented as of this encounter Procedures Procedure [...] on filedocumented in this encounter Care Teams Airplane Fueler Relationship Specialty Start Date End Date Brea Maciel MD [address] [place] [phone] PCP - General 10/08/23 documented as of this encounter
--- OUTSIDE RECORDS SUMMARY | 2024-07-15 15:28 | XMS_ITS | Encounter Summary ---
Author Organization [employer] Address [address] [place] [address] Care Team Providers Care Supervisor Finishing Department Name Role Phone Brea Maciel MD Primary Care Provider [phone] Reason for Visit * Reason Comments OTV Encounter Details Date Type Department Care Team (Latest Contact Info) Description 06/27/2024 1:24 PM EST - 06/27/2024 11:59 PM EST Hospital Encounter [facility] Radiation Oncology [address] [phone] Leyla Flanagan MD [address] [place] [address] Primary squamous cell carcinoma of lower gingiva [...] EST Accompanied by: self and in demand supervisor hot dip plating Bg # [id number] Subjective: Are you experiencing any fatigue? No [...] beans and chicken. Are you seeing a test architect or speech language pathologist? Yes Does patient [...] tracheostomy, teeth extractions by Dr. Lu at [facility] STAGE: Cancer Staging Primary squamous cell carcinoma [...] Chang Accompanied by: self and in demand supervisor hot dip plating Bg # [id number] Subjective: Are you experiencing any fatigue? No [...] beans and chicken. Are you seeing a test architect or speech language pathologist? Yes Does patient [...] moisturizer once daily on neck. 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
--- OUTSIDE RECORDS SUMMARY | 2024-07-15 15:28 | XMS_ITS | Encounter Summary ---
Author Organization [employer] Address [address] [place] [address] Care Team Providers Care Psychodramatist Name Role Phone Brea Maciel MD Primary Care Provider [phone] Encounter Details Date Type Department Care Team (Latest Contact Info) Description 06/26/2024 1:00 PM EST - 06/26/2024 11:59 PM EST Hospital Encounter [facility] Radiation Oncology [address] [phone] Discharge Disposition: Home or Self Care Social [...] Info) Description 08/06/2024 1:30 PM EST Appointment [facility] Radiation Oncology [address] [phone] Micaela Sandhu NP [address] [place] [address] [address] [place] [phone] 08/11/2024 1:30 PM EDT Office Visit [facility] Hematology Oncology [address] [place] [address] Taawna Chang MD [address] [place] [address] documented as of this encounter Procedures Procedure [...] on filedocumented in this encounter Care Teams Psychodramatist Relationship Specialty Start Date End Date Brea Maciel MD [address] [place] [phone] PCP - General 10/08/23 documented as of this encounter
--- OUTSIDE RECORDS SUMMARY | 2024-07-15 15:29 | XMS_ITS | Encounter Summary ---
Author Organization [employer] Address 75 [facility] 7t [place] [address] Care Team Providers Care Applique Cutter Name Role Phone Brea Maciel MD Primary Care Provider [phone] Reason for Visit * Reason Comments Med Refill Encounter Details Date Type Department Care Team ([facility] Contact Info) Description 05/01/2024 Refill [facility] CH[facility] MED & PEDS [address] [place], [place] [phone] Manjinder Tucker MD 505 [place] [address] Psoriasis Social History Tobacco Use Types Packs/Day [...] 08/19/2024 1:15 PM EDT Office Visit [facility] MED & PEDS 505 [place] [address] ArroyoSantosh Richardson MD 505 [place] [address] documented as of this encounter Visit Diagnoses Diagnosis Psoriasis Other psoriasis documented in this encounter Additional Health Concerns Assessment Noted Time PHQ-9 Depression Total Score: 10 024 11:21 AM EDT documented as of this encounter Care Teams Applique Cutter Relationship Specialty Start Date End Date Brea Maciel MD [address] [place] [address] PCP - General Family Medicine 09/21/23 documented as of this encounter
--- OUTSIDE RECORDS SUMMARY | 2024-07-15 15:29 | XMS_ITS | Encounter Summary ---
Author Organization [facility] Address [address] [place] [address] Care Team Providers Care Rheostat Assembler Name Role Phone Laura Hogue APRN Primary Care Provider Apple Villatoro DO Unavailable [phone] Encounter Details Date Type Department Care Team (Late st Contact Info) Description 08/31/2022 Scanned Document [facility] [place] [address] [place] [address] [address], [place] [phone] Laura Hogue APRN [address] [place], [place] [phone] Social History Tobacco Use Types Packs/Day Years [...] documented as of this encounter Care Teams Rheostat Assembler Relationship Specialty Start Date End Date Laura Hogue APRN [address] [place] [address] PCP - General Family Medicine 09/04/19 Apple Villatoro DO [address] [place] [address] Biochemist Cardiovascular Disease 04/12/23 documented as of this encounter
--- OUTSIDE RECORDS SUMMARY | 2024-07-15 15:29 | XMS_ITS | Encounter Summary ---
Author Organization [employer] Address 75 [facility] 7t [place] [address] Care Team Providers Care Regional Office Coordinator Name Role Phone Brea Maciel MD Primary Care Provider [phone] Encounter Details Date Type Department Care Team ([facility] st Contact Info) Description 05/07/2024 Orders Only [facility] [address] [place] [address] Provider, MD Hoa Social History Tobacco Use [...] 1:15 PM EDT Office Visit [facility] MED & PEDS 505 [place], [place] [phone] ArroyoSantosh Richardson MD 505 [place], [place] [phone] documented as of this encounter Procedures Procedure [...] documented as of this encounter Care Teams Regional Office Coordinator Relationship Specialty Start Date End Date Brea Maciel MD [address] [place] [address] PCP - General Family Medicine 09/21/23 documented as of this encounter
--- OUTSIDE RECORDS SUMMARY | 2024-07-15 15:29 | XMS_ITS | Encounter Summary ---
Author Organization [employer] Address 75 [facility] 7t [place] [address] Care Team Providers Care Customer Support Associate Name Role Phone Brea Maciel MD Primary Care Provider [phone] Reason for Visit * Reason Onset Date Comments Reschedule 06/02/2024 Encounter Details Date Type Department Care Team ([facility] Contact Info) Description 06/02/2024 Telephone [facility] MEDICINE 230 [place] [address] Brea Maciel MD [address] [place] [address] Reschedule Social History Tobacco Use Types Packs/Day [...] Upcoming Encounters Date Type Department Care Team ([facility] st Contact Info) Description 08/19/2024 1:15 PM EDT Office Visit [facility] MED & PEDS 505 [place] [address] Santosh Walker MD 505 [place] [address] documented as of this encounter Visit Diagnoses Not on filedocumented in this encounter Additional Health Concerns Assessment Noted Time PHQ-9 Depression Total Score: 10 024 11:21 AM EDT documented as of this encounter Care Teams Customer Support Associate Relationship Specialty Start Date End Date Brea Maciel MD 230 [place] [address] PCP - General Family Medicine 09/21/23 documented as of this encounter
--- OUTSIDE RECORDS SUMMARY | 2024-07-15 15:29 | XMS_ITS | Encounter Summary ---
Author Organization [employer] Address [address] [facility] [address] 7t [place] [address] Care Team Providers Care Financial Services Representative Name Role Phone Brea Maciel MD Primary Care Provider [phone] Encounter Details Date Type Department Care Team ([facility] st Contact Info) Description 02/15/2024 Telephone [facility] MEDICINE 230 [place] [address] Brea Maciel MD [address] [place], [place] [phone] Social History Tobacco Use Types Packs/Day Years [...] Description 08/19/2024 1:15 PM EDT Office Visit [facility] CHC MED & PEDS 505 [place] [address] Santosh Walker MD 505 [place] [address] documented as of this encounter Visit Diagnoses Not on filedocumented in this encounter Additional Health Concerns Assessment Noted Time PHQ-9 Depression Total Score: 10 024 11:21 AM EDT documented as of this encounter Care Teams Financial Services Representative Relationship Specialty Start Date End Date Brea Maciel MD [address] [place] [address] PCP - General Family Medicine 09/21/23 documented as of this encounter
--- OUTSIDE RECORDS SUMMARY | 2024-07-15 15:29 | XMS_ITS | Encounter Summary ---
Author Organization [facility] Address [address] [place] [address] Care Team Providers Care Caterpillar Operator Name Role Phone Brea Maciel MD Primary Care Provider [phone] Encounter Details Date Type Department Care Team (Latest Contact Info) Description 06/18/2024 12:23 PM EST - 06/18/2024 11:59 PM EST Hospital Encounter [facility] Radiation Oncology [address] [phone] Discharge Disposition: Home or Self Care Social [...] mouth or throat 4 times daily. 04/10/2024 amoxicillin-clav ulanate (AUGMENTIN) 600-42.9 mg/5 mL suspension [...] EST Appointment [facility] Radiation Oncology [address] [place] [phone] Micaela Sandhu NP [address] [place] [phone] 08/11/2024 1:30 PM EDT Office Visit [facility] Hematology Oncology [address] [place] [phone] Tawana Chang MD 271 [place] [address] documented as of this encounter Procedures Procedure [...] on filedocumented in this encounter Care Teams Caterpillar Operator Relationship Specialty Start Date End Date Brea Maciel MD [address] [place] [address] PCP - General 10/08/23 documented as of this encounter
--- OUTSIDE RECORDS SUMMARY | 2024-07-15 15:29 | XMS_ITS | Clinical Summary ---
Author Organization [employer] Address 75 [facility] 7t [place] [address] Care Team Providers Care Caregivers Non Medical Name Role Phone Brea Maciel MD Primary Care Provider [phone] Allergies Active Allergy Reactions Criticality Noted Date [...] 2 Units 4 times daily. 200 each 09/21/19 24 Active FREESTYLE LITE test strip Use to test blood sugar QID 100 each 09/21/19 24 025 Active Blood Glucose Monitoring Suppl (FreeStyle Lite) w/Device kit 1 Units before breakfast, before lunch, before evening meal, and at bedtime. 1 kit 09/21/19 24 Active Lancets misc 1 Units 4 times daily. 200 each 11 10/05/19 24 Active Continuous Glucose Data Entry Manager (FreeStyle Marlen 2 [place]) device 1 Units 4 times daily. 1 [...] Colon Cancer Screening for recheck. Referring to Front Desk Administrator. Continuous leakage of urine 10/05/2023 Assessment & [...] in one month. Relevant Medications Continuous Glucose Data Entry Manager (Freestyle Marlen 2 Hudson) device Continuous Glucose Data Entry Manager (Freestyle Marlen 2 Sensor) misc Insulin glargine [...] losartan and amlodipine, will send medication to [facility]. Also he does not have a bp monitor at home, will send one, follow up with pcp in 2-3 months Resolved Problems Problem Noted Date Diagnosed Date Resolved Date Community acquired pneumonia 08/26/2019 09/21/2023 Encounters Date Type Department Care Team Description 07/14/2024 Telephone [facility] MED & PEDS [address] [place] [address] Brea Maciel MD Prior Authorization 07/09/2024 8:45 AM EST Office Visit [facility] MED & PEDS [address] [place] [address] Santosh Walker MD Type 2 diabetes mellitus without 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, with long-term current use of insulin ([facility]) (Primary Dx); Chronic midline low back pain without sciatica; Dietary counseling; Exercise counseling; Mixed hyperlipidemia; Essential hypertension 07/09/2024 Travel 07/02/2024 Patient Outreach [facility] MED & PEDS [address] [place] [address] Brea Maciel MD Care Coordination (CH[facility] outreach for SDOH PT-1 and food needs-referral completed /) 07/02/2024 Patient Outreach [facility] MED & PEDS [address] [place] [address] Brea Maciel MD Pre-visit Planning (SDOH positive, Tobacco screening negative.) 06/17/2024 Telephone [facility] MEDICINE [address] [place] [address] Brea Maciel MD FYI 06/02/2024 Telephone [facility] MEDICINE [address] [place] [address] Brea Maciel MD Reschedule 05/23/2024 Patient Outreach [facility] MED & PEDS [address] [place] [address] Brea Maciel MD Pre-visit Planning (SDOH was completed on 09/12/2023) 05/20/2024 Refill [facility] MEDICINE [address] [place] [address] Brea Maciel MD 05/20/2024 Refill [facility] MED & PEDS [address] [place] [address] Brea Maciel MD 05/07/2024 [facility] Health Information Management [address] [place] [address] Hoa Noe MD 05/06/2024 Telephone [facility] MEDICINE [address] [place] [address] Brea Maciel MD Referral 05/05/2024 Refill [facility] MED & PEDS [address] [place] [address] Manjinder Tucker MD Psoriasis 05/05/2024 Telephone [facility] MED & PEDS [address] [place] [address] Brea Maciel MD Med Refill 05/01/2024 Refill [facility] MED & PEDS [address] [place] [address] Manjinder Tucker MD Psoriasis 04/28/2024 Refill [facility] MED & PEDS [address] [place] [address] Brea Maciel MD 04/25/2024 Telephone [facility] MED & PEDS [address] [place] [address] Brea Maciel MD 04/21/2024 Telephone [facility] MEDICINE [address] [place] [address] Brea Maciel MD Medication Question 04/18/2024 Orders Only [facility] CHC MED & PEDS [address] [place], [place] [phone] Santosh Walker MD 04/16/2024 10:00 AM EST Office Visit [facility] MED & PEDS [address] [place], [place] [phone] Santosh Walker MD Type 2 diabetes mellitus without 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, with long-term current use of insulin ([facility]) (Primary Dx); Hospital discharge follow-up; Primary insomnia 04/15/2024 Telephone [facility] MED & PEDS [address] [place], [place] [phone] Brea Maciel MD Chart Prep 04/15/2024 Travel [...] 08/19/2024 1:15 PM EDT Office Visit [facility] MED & PEDS [address] [place], [place] [phone] Santosh Walker MD 505 [place], [place] [phone] Health Maintenance Due Date Last Done Comments [...] resultswithin the time period is included. Pathologist [facility] Hemoglobin A1C 8.3(A) 4.0 - 6.0 % QC Media Lot # [id number] Lot# Expiration Date ,026 Blood 07/09/2024 9:15 AM EST Santosh Reyes MD POINT OF CARE TEST ENTER/EDIT ORDERABLES Final Result * POCT Glucose (07/09/2024 9:14 AM EST) Only the most recent of2 resultswithin the time period is included. [facility] Glucose Blood, POC 161 60 - 200 [...] Metabolic Panel (04/16/2024 11:32 AM EST) Pathologist [facility] Sodium 134(L) 135 - 145 mmol/L [facility] Potassium 4.1 3.3 - 5.1 mmol/L [facility] Chloride 101 96 - 108 mmol/L [facility] Carbon Dioxide 22 22 - 29 mmol/L [facility] Anion Gap 15 12 - 20 [facility] Urea Nitrogen (BUN) 13 9 - 16 mg/dL [facility] Creatinine, Serum 1.28 0.5 - 1.4 mg/dL [facility] Estimated Glomerular Filt Rate 56 [facility] Comment:Chronic Kidney Disea se: Estimated GFR < 60 mL/min/1.32a4Apdryu Kidney Disease: Estimated GFR < 15 mL/min/1.73m2 Glucose 285(H) 60 - 115 mg/dL [facility] Calcium 10.2 8.4 - 10.2 mg/dL [facility] Bilirubin, Total 0.6 0.0 - 1.0 mg/dL [facility] Aspartate Amino Transferase 33 5 - 37 U/L [facility] Alanine Aminotransferase 29 0 - 40 U/L [facility] Total Protein 7.6 6.5 - 8.0 g/dL [facility] Albumin Level 3.9 3.5 - 5.0 g/dL [facility] Alkaline Phosphatase 163(H) 39 - 117 U/L [facility] Blood Venous blood specimen / Unknown 04/16/2024 11:32 AM EST 04/16/2024 2:19 PM EST us Santosh Reyes MD LAB BLOOD ORDERABL ES Final Result Performing Organization Address [facility]/ZIP Co de Phone Number [facility] [address] [place] [phone] * Protein Creatinine Ratio, Urine (10/01/2023 8:20 AM EDT) Creatinine, Urine 43.57 mg/dL [facility] Protein, Total, Random Urine <7 <12 mg/dL [facility] Protein/Creatin ine Ratio, Ur TNP <0.2 [facility] Comment:Unable to calculate urine protein creatinine ratio due tolow creatinine or protein result. 10/01/2023 8:20 AM EDT 10/01/2023 2:00 PM EDT us Brea Maciel MD LAB URINE ORDERABLES Final Re sult Performing Organization Address City/[facility]/ZIP Co de Phone Number [facility] [address] [place] [address] [phone] * Hepatitis C Antibody with Reflex to HCV, RNA, Quantitative, Real-Time PCR (09/24/2023 8:28 AM EDT) Hepatitis C Antibody Nonreactive Nonreactive [facility] Comment:Antibodies to HCV no t detected; does not exclude early acuteHCV infection. Blood Venous blood specimen / Unknown 09/24/2023 8:28 AM EDT 09/24/2023 2:45 PM EDT us Brea Maciel MD LAB BLOOD ORDERABLES Final Re sult [facility] [address] [place] [address] [phone] * Lipid Panel, Standard (09/24/2023 8:28 AM EDT) Triglycerides 104 <150 mg/dL [facility] Comment:Desirable Triglyceri de: less than 150 mg/dLBorderline High Triglyceride 150-199 mg/dLHigh Triglyceride: 200-499 mg/dLVery High Triglyceride: greater than or equal to 5OO mg/dL Cholesterol 157 <200 mg/dL [facility] Comment:Desirable Cholestero l: less than 200 mg/dLBorderline High Cholesterol: 200-239 mg/dLHigh Cholesterol: greater than 239 mg/dL LDL Cholesterol Calculated 78 <100 mg/dL [facility] Comment:Desirable LDL: less than 100 mg/dLNear Optimal/Above Optimal LDL: 110- 129 mg/dLBorderline High LDL: 130-159 mg/dLHigh LDL: 160-189 mg/dLVery High LDL: greater than or equal to 190 mg/dL HDL Cholesterol 59 >40 mg/dL [facility] Comment:Desirable HDL: great er than 40 mg/dL Note: This HDL assay may give artificially low results in patients with liver disease. Blood Venous blood specimen / Unknown 09/24/2023 8:28 AM EDT 09/24/2023 2:45 PM EDT us Brea Maciel MD LAB BLOOD ORDERABLES Final Re sult [facility] [address] [place] [address] [phone] from Last 3 Months or Most Recently Relevant to Health Maintenance Insurance [facility] Care Teams Caregivers Non Medical Relationship Specialty Start Date End Date Brea Maciel MD [address] [place] [address] PCP - General Family Medicine 09/21/23
--- OUTSIDE RECORDS SUMMARY | 2024-07-15 15:29 | XMS_ITS | Encounter Summary ---
Author Organization [employer] Address 75 [facility] 7t [place] [address] Care Team Providers Care Stationary Engineer Refrigeration Name Role Phone Brea Maciel MD Primary Care Provider [phone] Reason for Visit * Reason Onset Date Comments Durable Medical Equipment 04/11/2024 Encounter Details Date Type Department Care Team ([facility] Contact Info) Description 04/11/2024 Telephone [facility] MEDICINE [address] [place] [address] Brea Maciel MD [address] [place] [address] Durable Medical Equipment Social History Tobacco Use [...] - 04/11/2024 3:09 PM EST Tc from [facility] ([facility]) requesting DME supply for pt Shower Chair, Race toilet seat with hand rest, walker with seat . Callback number [phone] documented in this encounter Plan of Treatment Upcoming Encounters Date Type Department Care Team (Late st Contact Info) Description 08/19/2024 1:15 PM EDT Office Visit [facility] CHC MED & PEDS [address] [place] [address] Santosh Walker MD 505 [place] [address] documented as of this encounter Visit Diagnoses Not on filedocumented in this encounter Additional Health Concerns Assessment Noted Time PHQ-9 Depression Total Score: 10 024 11:21 AM EDT documented as of this encounter Care Teams Stationary Engineer Refrigeration Relationship Specialty Start Date End Date Brea Maciel MD [address] [place] [address] PCP - General Family Medicine 09/21/23 documented as of this encounter
--- OUTSIDE RECORDS SUMMARY | 2024-07-15 15:29 | XMS_ITS | Encounter Summary ---
Author Organization [employer] Address 75 [facility] 7t [place] [address] Care Team Providers Care Mechanic/Welder Name Role Phone Brea Maciel MD Primary Care Provider [phone] Reason for Visit * Reason Onset Date Comments Prior Authorization 07/14/2024 Encounter Details Date Type Department Care Team ([facility] Contact Info) Description 07/14/2024 Telephone [facility] CHC MED & PEDS [address] [place] [address] Brea Maciel MD [address] [place] [address] Prior Authorization Social History Tobacco Use Types [...] Description 08/19/2024 1:15 PM EDT Office Visit [facility] MED & PEDS [address] [place] [address] Santosh Walker MD 505 [place] [address] documented as of this encounter Visit Diagnoses Not on filedocumented in this encounter Additional Health Concerns Assessment Noted Time PHQ-9 Depression Total Score: 0 07/09/19 25 8:57 AM EST documented as of this encounter Care Teams Mechanic/Welder Relationship Specialty Start Date End Date Brea Maciel MD [address] [place] [address] PCP - General Family Medicine 09/21/23 documented as of this encounter
--- OUTSIDE RECORDS SUMMARY | 2024-07-15 15:29 | XMS_ITS | Encounter Summary ---
Author Organization [employer] Address [address] [facility] [address] 7t [place] [address] Care Team Providers Care Saturator Name Role Phone Brea Maciel MD Primary Care Provider [phone] Reason for Visit * Reason Onset Date Comments medication 01/10/2024 Encounter Details Date Type Department Care Team ([facility] st Contact Info) Description 01/10/2024 Telephone [facility] D[facility] 230 [place] [address] Enrique Soria, DMD 505 [place] [address] medication Social History Tobacco Use Types Packs/Day [...] Meredith Sánchez - 01/10/2024 10:17 AM EDT [place] DOCTOR WADE Harrisaraceli Coronado is a 68 y.o. year old male.CALLED TODAY SAYING U DIGINOSE HIM WITH CANCER .YESTERDAY AND HIS IN A LOT OF PAIN.CAN YOU SEND HIM SOMETHING FOR PAIN SHARIF Kumar . documented in this encounter Plan of Treatment Upcoming Encounters Date Type Department Care Team (Late st Contact Info) Description 08/19/2024 1:15 PM EDT Office Visit [facility] CH[facility] MED & PEDS [address] [place] [address] Santosh Walker MD 505 [place] [address] documented as of this encounter Visit Diagnoses Not on filedocumented in this encounter Care Teams Saturator Relationship Specialty Start Date End Date Brea Maciel MD 230 [place] [address] PCP - General Family Medicine 09/21/23 documented as of this encounter
--- OUTSIDE RECORDS SUMMARY | 2024-07-15 15:29 | XMS_ITS | Encounter Summary ---
Author Organization [employer] Address [address] [place] [address] Care Team Providers Care Rough Rib Grader Name Role Phone Brea Maciel MD Primary Care Provider [phone] Encounter Details Date Type Department Care Team (Latest Contact Info) Description 06/16/2024 12:40 PM EST - 06/16/2024 11:59 PM EST Hospital Encounter [facility] Radiation Oncology [address] [phone] Discharge Disposition: Home or Self Care Social [...] Description 08/06/2024 1:30 PM EST Appointment [facility] Radiation Oncology [address] [phone] Micaela Sandhu NP [address] [place] [address] [facility] [place] [address] 08/11/2024 1:30 PM EDT Office Visit [facility] Hematology Oncology [address] [place] [phone] Tawana Chang MD [address] [place] [address] documented as of this encounter Procedures Procedure [...] on filedocumented in this encounter Care Teams Rough Rib Grader Relationship Specialty Start Date End Date Brea Maciel MD [address] [place] [address] PCP - General 10/08/23 documented as of this encounter
--- OUTSIDE RECORDS SUMMARY | 2024-07-15 15:29 | XMS_ITS | Encounter Summary ---
Author Organization [employer] Address [address] [place] [address] Care Team Providers Care Equipment Or Machinery Cleaner Name Role Phone Brea Maciel MD Primary Care Provider [phone] Reason for Visit * Reason Comments OTV Encounter Details Date Type Department Care Team (Latest Contact Info) Description 06/17/2024 1:26 PM EST - 06/17/2024 11:59 PM EST Hospital Encounter [facility] Radiation Oncology [address] [phone] Leyla Flanagan MD [address] [place] [address] Primary squamous cell carcinoma of lower gingiva [...] beans and chicken. Are you seeing a professional application designer or speech language pathologist? Yes Does patient have a g-tube? Yes . If so, How many cans per day are you using via g-tube? N/A Any problems with the tube or tube site? No, flushing tube twice daily. Pt reports lip is painful. Pt to see MD in [place] tomorrow. * Leyla Flanagan MD - 06/17/2024 [...] tracheostomy, teeth extractions by Dr. Lu at [facility] STAGE: Cancer Staging Primary squamous [...] beans and chicken. Are you seeing a professional application designer or speech language pathologist? Yes Does patient have a g-tube? Yes . If so, How many cans per day are you using via g-tube? N/A Any problems with the tube or tube site? No, flushing tube twice daily. Pt reports lip is painful. Pt to see MD in [place] tomorrow. Physical Exam: There were no vitals [...] Went to [facility] on 06/12/24 due to concern for infection, per ER note suspicion was low but pt placed on antibiotic and told to follow up with surgeon. Pt missed RT 06/12 and 06/13. Small patch of mucositis on right lower lip, I recommend applying aqupahor to this area. Samples given. Pt has FU Dr. Lu ([facility] surgeon) tomorrow. 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
--- OUTSIDE RECORDS SUMMARY | 2024-07-15 15:29 | XMS_ITS | Encounter Summary ---
Author Organization [employer] Address [address] [facility] [employer] 7t [place] [address] Care Team Providers Care Packager Head Name Role Phone Brea Maciel MD Primary Care Provider [phone] Encounter Details Date Type Department Care Team [...] Upcoming Encounters Date Type Department Care Team ([facility] st Contact Info) Description 08/19/2024 1:15 PM EDT Office Visit [facility] MED & PEDS [address] [place], [place] [phone] Santosh Walker MD 505 [place], [place] [phone] documented as of this encounter Visit Diagnoses Not on filedocumented in this encounter Additional Health Concerns Assessment Noted Time PHQ-9 Depression Total Score: 0 07/09/19 25 8:57 AM EST documented as of this encounter Care Teams Packager Head Relationship Specialty Start Date End Date Brea Maciel MD [address] [place] [address] PCP - General Family Medicine 09/21/23 documented as of this encounter
--- OUTSIDE RECORDS SUMMARY | 2024-07-15 15:29 | XMS_ITS | Encounter Summary ---
Author Organization [employer] Address [address] [facility] 7t [place] [address] Care Team Providers Care Z Os Mainframe Systems Programmer Name Role Phone Brea Maciel MD Primary Care Provider [phone] Reason for Visit * Reason Comments Care Coordination CHW outreach for SDO H PT-1 and food needs-referral completed Encounter Details Date Type Department Care Team (Latest Contact Info) Description 07/02/2024 Patient Outreach [facility] CHC MED & PEDS 505 [place], [place] [phone] Brea Maciel MD [address] [place] [address] Care Coordination (CHW outreach for SDOH PT-1 [...] Wednesdays, and Walk-In Urgent Care Located in [facility] of [facility]. Patient provided with after-hours line for [facility], , which offer night time triage service and option to transfer to medication manager provider if needed. documented in this encounter Plan of Treatment Upcoming Encounters Date Type Department Care Team (Late st Contact Info) Description 08/19/2024 1:15 PM EDT Office Visit [facility] CHC MED & PEDS 505 [place] [address] Santosh Walker MD [address] [place] [address] documented as of this encounter Visit Diagnoses Not on filedocumented in this encounter Additional Health Concerns Assessment Noted Time PHQ-9 Depression Total Score: 10 024 11:21 AM EDT documented as of this encounter Care Teams Z Os Mainframe Systems Programmer Relationship Specialty Start Date End Date Brea Maciel MD [address] [place] [address] PCP - General Family Medicine 09/21/23 documented as of this encounter
--- OUTSIDE RECORDS SUMMARY | 2024-07-15 15:29 | XMS_ITS | Encounter Summary ---
Author Organization [employer] Address [address] [place] [address] Care Team Providers Care Autocad Name Role Phone Brea Maciel MD Primary Care Provider [phone] Encounter Details Date Type Department Care Team (Latest Contact Info) Description 06/17/2024 12:41 PM EST - 06/17/2024 11:59 PM EST Hospital Encounter [facility] Radiation Oncology [address] [phone] Discharge Disposition: Home or Self Care Social [...] Description 08/06/2024 1:30 PM EST Appointment [facility] Radiation Oncology [address] [phone] Micaela Sandhu NP [address] [place] [address] [facility] [place] [phone] 08/11/2024 1:30 PM EDT Office Visit [facility] Hematology Oncology [address] [place] [phone] Tawana Chang MD [address] [place] [address] documented as of this encounter Procedures Procedure [...] on filedocumented in this encounter Care Teams Autocad Relationship Specialty Start Date End Date Bera Maciel MD [address] [place] [address] PCP - General 10/08/23 documented as of this encounter
--- OUTSIDE RECORDS SUMMARY | 2024-07-15 15:29 | XMS_ITS | Encounter Summary ---
Author Organization [employer] Address [address] [place] [address] Care Team Providers Care Uplands Division Director Name Role Phone Brea Maciel MD Primary Care Provider Encounter Details Date Type Department Care Team (Latest Contact Info) Description 06/19/2024 12:41 PM EST - 06/19/2024 11:59 PM EST Hospital Encounter [facility] Radiation Oncology [address] [phone] Discharge Disposition: Home or Self Care Social [...] PM EST Appoint[address] [facility] Radiation Oncology [address] [phone] Micaela Sandhu NP [address] [place] [address] [place] [address] 08/11/2024 1:30 PM EDT Office Visit [facility] Hematology Oncology [address] [place] [address] Tawana Chang MD [address] [place] [address] documented as of this encounter Procedures Procedure [...] on filedocumented in this encounter Care Teams Uplands Division Director Relationship Specialty Start Date End Date Brea Maciel MD [address] [place] [address] PCP - General 10/08/23 documented as of this encounter
--- OUTSIDE RECORDS SUMMARY | 2024-07-15 15:29 | XMS_ITS | Encounter Summary ---
Author Organization [employer] Address [address] [place] [address] Care Team Providers Care Bmw Service Technician Name Role Phone Brea Maciel MD Primary Care Provider [phone] Encounter Details Date Type Department Care Team (Latest Contact Info) Description 06/23/2024 1:12 PM EST - 06/23/2024 11:59 PM EST Hospital Encounter [facility] Radiation Oncology [address] [phone] Discharge Disposition: Home or Self Care Social [...] [facility] [address] [phone] Micaela Sandhu NP [address] [place] [address] [address] [place] [phone] 08/11/2024 1:30 PM EDT Office Visit [facility] Hematology Oncology [address] [place] [address] Tawana Chang MD [address] [place] [address] documented as of this encounter Procedures Procedure [...] on filedocumented in this encounter Care Teams Bmw Service Technician Relationship Specialty Start Date End Date Brea Maciel MD [address] [place] [phone] PCP - General 10/08/23 documented as of this encounter
--- OUTSIDE RECORDS SUMMARY | 2024-07-15 15:29 | XMS_ITS | Encounter Summary ---
Author Organization [employer] Address [address] [facility] 7 [place] [address] Care Team Providers Care Goggles Assembler Name Role Phone Brea Maciel MD Primary Care Provider [phone] Reason for Referral * Medications - Closed Specialty Diagnoses / Procedures Referred By Contac t Referred To Contact Diagnoses Chronic midline low back pain without sciatica Santosh Walker MD [address] [place] [address] Phone: tel: fax: Referral ID Status Reason Start Date Expiration Date Visits Re quested Visits Authorized [id number] Closed 07/09/2024 07/09/2025 1 1 Encounter Details Date Type Department Care Team (Late st Contact Info) Description 07/09/2024 8:45 AM EST Office Visit [facility] CHC MED & PEDS 505 [place] [address] Santosh Walker MD [address] [place] [address] Type 2 diabetes mellitus without 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, with long-term current use of insulin ([facility]) (Primary Dx); Chronic midline low back pain [...] 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, with long-term current use of insulin ([facility]) - Primary (Chronic) Patient having episode of [...] [facility] MED & PEDS [address] [place], [place] [phone] Santosh Walker MD [address] [place] [address] documented as of this encounter Procedures Procedure Name Priority Date/Time Associated Diagnosis Comments POCT GLYCATED HEMOGLOBIN, TOTAL Routine 07/09/2024 9:15 AM EST Type 2 diabetes mellitus without 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, with long-term current use of insulin ([facility]) POCT GLUCOSE Routine 07/09/2024 9:14 AM EST Type 2 diabetes mellitus without 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, with long-term current use of insulin ([facility]) documented in this encounter Results * (ABNORMAL) [...] 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, with long-term current use of insulin ([facility])- Primary Chronic midline low back pain without sciatica Dietary counseling Dietary surveillance and counseling Exercise counseling Mixed hyperlipidemia Essential hypertension Unspecified essential hypertension documented in this encounter Additional Health Concerns Assessment Noted Time PHQ-9 Depression Total Score: 0 07/09/19 25 8:57 AM EST documented as of this encounter Care Teams Goggles Assembler Relationship Specialty Start Date End Date Brea Maciel MD [address] [place] [address] PCP - General Family Medicine 09/21/23 documented as of this encounter
--- OUTSIDE RECORDS SUMMARY | 2024-07-15 15:29 | XMS_ITS | Encounter Summary ---
Author Organization [employer] Address [address] [facility] 7t [place] [address] Care Team Providers Care Statue Maker Name Role Phone Brea Maciel MD Primary Care Provider Encounter Details Date Type Department Care Team (Late st Contact Info) Description 07/24/2023 Orders Only [facility] [address] [place] [address] Shawn Mendez MD [address] [place] [address] Social History Tobacco Use Types Packs/Day Years [...] Description 08/19/2024 1:15 PM EDT Office Visit [facility] CHC MED & PEDS 505 [place], [place] [phone] Santosh Walker MD 505 [place], [place] [phone] documented as of this encounter Visit Diagnoses Not on filedocumented in this encounter Care Teams Statue Maker Relationship Specialty Start Date End Date Brea Maciel MD [address] [place] [address] PCP - General Family Medicine 09/21/23 documented as of this encounter
--- OUTSIDE RECORDS SUMMARY | 2024-07-15 15:29 | XMS_ITS | Encounter Summary ---
Author Organization [facility] Address [address] [place] [address] Care Team Providers Care Mash Grinder Name Role Phone Lennie Laura ESTRADA Primary Care Provider Apple Villatoro DO Unavailable [phone] Encounter Details Date Type Department Care Team (Late st Contact Info) Description 08/31/2022 Scanned Document [facility] [address] [facility] [address] [place] [phone] Shabnam Merrill MD [address] [place] [address] Social History Tobacco Use Types Packs/Day Years [...] documented as of this encounter Care Teams Mash Grinder Relationship Specialty Start Date End Date Laura Hogue APRN [address] [place] [address] PCP - General Family Medicine 09/04/19 Apple Villatoro DO [address] [place] [address] Rover Tender Cardiovascular Disease 04/12/23 documented as of this encounter
--- OUTSIDE RECORDS SUMMARY | 2024-07-15 15:29 | XMS_ITS | Encounter Summary ---
Author Organization [employer] Address [address] [place] [address] Care Team Providers Care Cadmium Liquor Maker Name Role Phone Brea Maciel MD Primary Care Provider [phone] Encounter Details Date Type Department Care Team (Late st Contact Info) Description 06/16/2024 Telephone [facility] Radiation Oncology [address] [place] [address] 2[address] [place] [phone] Micaela Sandhu, QUAN [address] [place] [phone] Social History Tobacco Use Types Packs/Day Years [...] 10:06 AM EST Spoke with patient with clerical support [phone] [address]. Patient states he is feeling a little better from 06/12/24. Lip is still swollen and has bloody discharge. He denies fevers. It is still painful. He is due to see Oncology in [place] 06/18/24. Dr. Flanagan would like him to resume treatment today. Patientis agreeable and will come in today at his scheduled time. documented in this encounter Plan of Treatment Upcoming Encounters Date Type Department Care Team (Late st Contact Info) Description 08/06/2024 1:30 PM EST Appointment [facility] Radiation Oncology [address] [phone] Micaela Sandhu NP [address] [place] [phone] 08/11/2024 1:30 PM EDT Office Visit [facility] Hematology Oncology [address] [place] [phone] Tawana Chang MD [address] [place] [address] documented as of this encounter Visit Diagnoses Not on filedocumented in this encounter Care Teams Cadmium Liquor Maker Relationship Specialty Start Date End Date Brea Maciel MD [address] [place] [phone] PCP - General 10/08/23 documented as of this encounter
--- OUTSIDE RECORDS SUMMARY | 2024-07-15 15:29 | XMS_ITS | Encounter Summary ---
Author Organization [facility] Address [address] [place] [address] Care Team Providers Care Crop Adjuster Name Role Phone Laura Hogue APRN Primary Care Provider Apple Villatoro DO Unavailable [phone] Encounter Details Date Type Department Care Team (Late st Contact Info) Description 03/08/2023 Scanned Document [address] [place] [phone] Provider, Generic Social History Tobacco Use Types [...] filedocumented in this encounter Care Teams Crop Adjuster Relationship Specialty Start Date End Date Laura Hogue APRN [address] [place] [address] PCP - General Family Medicine 09/04/19 Apple Villatoro DO [address] [place] [address] Systems Integration Manager Cardiovascular Disease 04/12/23 documented as of this encounter
[2024-07-15 16:59] LABS: Creatinine Urine 91.36 mg/dL; Total Protein Urine Random < 7 mg/dL (<12)
== END 2024-07-15 14:33 | disposition home or self-care (01) ==
LOC: HO.HHCL 14:32
PROVIDERS: Visit Provider Internal Medicine Nephrology
DX: N18.31 Chronic kidney disease, stage 3a (principal)
CPT/HCPCS: 82570; 84156

== ENCOUNTER 2024-08-19 14:10 | Outpatient (REF) | payer OTHER, SELFPAY ==
[2024-08-19 19:34] LABS: Albumin Level 3.8 g/dL (3.5-5.0); Alkaline Phosphatase 169 U/L (39-117); Anion Gap 12 (12-20); Aspartate Amino Transferase 57 U/L (5-37); Bilirubin Total 0.3 mg/dL (0.0-1.0); Blood Urea Nitrogen 15 mg/dL (9-16); Calcium 9.5 mg/dL (8.4-10.2); Carbon Dioxide 26 mmol/L (22-29); Chloride 107 mmol/L (96-108); Cholesterol 180 mg/dL (<200); Estimated Glomerular Filt Rate > 60; Glucose Random 128 mg/dL (60-115); HDL Cholesterol 47 mg/dL (>40); LDL Cholesterol Calculated 106 mg/dL (<100); Potassium 3.8 mmol/L (3.3-5.1); Sodium 141 mmol/L (135-145); Total Protein 7.9 g/dL (6.5-8.0); Triglycerides 137 mg/dL (<150)
[2024-08-19 19:37] LABS: TSH reflex Free T4 2.47 uIU/mL (0.32-4.0)
[2024-08-19 19:46] LABS: Alanine Aminotransferase 55 U/L (0-40)
== END 2024-08-19 14:11 | disposition home or self-care (01) ==
LOC: HO.CHCLDS 14:10
PROVIDERS: Visit Provider Internal Medicine
DX: E78.2 Mixed hyperlipidemia (principal); E03.9 Hypothyroidism, unspecified
CPT/HCPCS: 36415; 80053; 80061; 84443

== ENCOUNTER 2024-09-25 12:01 | Outpatient (REF) | payer OTHER, SELFPAY ==
[2024-09-25 13:48] LABS: Prostate Specific Antigen < 0.10 ng/mL (<0.05-4.0)
--- OUTSIDE RECORDS SUMMARY | 2024-09-25 14:22 | XMS_ITS | Clinical Summary ---
Author Organization [facility] Address [address] [place] [address] Care Team Providers Care Home Support Worker Name Role Phone Charis Liz Primary Care Provider [phone] William Kaplan MD Unavailable Allergies Active Allergy [...] Wellness (AWV) 1955 Diabetes: Retinopathy Screening 02/06/1974 Pneumococcal Vaccine, 50+ Years (1 of 1 - PCV) 02/06/2006 Zoster Vaccines (1 of 2) 02/06/2006 Diabetes: Hemoglobin A1C 05/26/2021 021, 04/15/2020, 08/27/2019, Additional history exists COVID-19 Vaccine (3 - season) 2024 10/14/2020, 09/14/2020 Diabetes: Urine Microalbumin 02/13/2024 02/12/2023 Influenza Vaccine (Season Ended) 2025 02/24/2018 Colonoscopy 04/06/2030 04/06/2020 Colorectal Cancer Screening 04/06/2030 [...] Information: ?Site ID: [id number] ?Name: [facility] ?Address: [address] [place] [address] ?Director: Roly Huerta M.D.,PhD us Robert Martinez MD [facility] Lin l Result [facility] [address] , [place] from Last 3 Months or Most Recently Relevant to Health Maintenance Insurance [address] [place], [place] [id number] MED[id number] MEDIC[place] PART A & B Care Teams Home Support Worker Relationship Specialty Start Date End Date Charis Liz PA [address] [place] [address] PCP - General Internal Medicine 12/11/18 William Kaplan MD [address] [place] [address] PCP - Insurance Payer PCP 02/02/23
--- OUTSIDE RECORDS SUMMARY | 2024-09-25 14:22 | XMS_ITS | Encounter Summary ---
Author Organization [facility] Address [address] [place] [address] Care Team Providers Care Ballet Professor Name Role Phone Laura Hogue APRN Primary Care Provider Apple Villatoro DO Unavailable [phone] Encounter Details Date Type Department Care Team (Late st Contact Info) Description 03/01/2020 Scanned Document [facility] [place] [address] [place] [address] Laura Hogue APRN [address] [place], [place] [phone] Social History Tobacco Use Types Packs/Day Years Used Date Smoking Tobacco: Former Cigarettes Q uit: 11/24/1985 Smokeless Tobacco: Never Alcohol Use Standard Drinks/Week Comments No 0 (1 standard drink = 0.6 oz pur e alcohol) Sex and Gender Information Value Date Recorded Sex Assigned at Male 10/03/2022 12:28 PM EDT Legal Sex Male 2:35 PM EDT Gender Identity Male 10/03/2022 12:28 [...] documented as of this encounter Care Teams Ballet Professor Relationship Specialty Start Date End Date Laura Hogue APRN [address] [place] [address] PCP - General Family Medicine 09/04/19 Apple Villatoro DO [address] [place] [address] Control Systems Drafting Officer Cardiovascular Disease 04/12/23 documented as of this encounter
--- OUTSIDE RECORDS SUMMARY | 2024-09-25 14:22 | XMS_ITS | Patient Health Record ---
[facility] Address [address] [place] [address] Care Team Providers Care Ship Keeper Name Role Phone Laura Hogue Primary Care Provider Allergies Allergen (clinical drug ingredient) Drug/Non Drug Allergy documented on EMR Reaction Allergy Type Onset Date Status liraglutide Victoza (uncoded) did not feel right with it Allergy Active Lisinopril dry cough Drug Allergy Active Reason For Referral No Information Medications Medication [...] for 999 days Dx I10 Active Pen [place] 3/16 31G X 5 MM use with insulin subcutaneously daily with lantus. E11.22 for 90 days nicaraguan labels please Active Gabapentin 400 MG 1 [...] 1 tab(s) Orally qhs for 90 days nicaraguan labels please Unknown Blood Pressure Kit - [...] O nce a day for 90 days nicaraguan labels please 01/09/2020 Active Atorvastatin Calcium 10 MG 1 tablet Orally at bedtime (once a day) for 90 days nicaraguan labels please Active Metoprolol Succinate ER 25 [...] Orally twice a day for 90 days nicaraguan labels please Active FreeStyle Marlen 2 Ona - 1 PER YEAR for 1 Active amLODIPine Besylate 10 MG 1 tablet Orally daily for 90 days Active Pantoprazole Sodium 40 MG 1 tablet Orally Once a day for 30 day(s) 08/29/2021 Active Losartan Potassium 100 MG as directed Orally daily for 90 days nicaraguan labels please 02/24/2019 Active Glucometer 1 as directed intradermal tid qac for 999 days 07/17/2022 Active Chlorthalidone 25 mg 1 tablet in the morning with food Orally Once a day for 90 days nicaraguan labels please Active Sertraline HCl 100 MG [...] 3 yrs and above Unknown 05/05/2010 Administered ([facility])Status:Com pleted Influenza (split), 3 yrs and above Unknown 06/09/2010 Administered ([facility])Status:Com pleted Novel [id number], all formulations Unknown 05/14/2009 Administered ([facility])Status:Com pleted Tdap Unknown 12/01/2010 Administered ([facility])Status: Com pleted Social History Tobacco Use: Social [...] with others, in a hotel, in a chcf, living outside on the street, on a beach, or in a park) Are you worried about losing your housing? No What is the highest level of school that you have finished? High school diploma or GED What is your current work situation? Otherwise unemployed but not seeking work (ex. 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 Stress is when someone feels tense, nervous, anxious, or cant sleep at night because their mind is troubled Very much In the past year have you spent more than 2 nights in a row in a detention, nursing home, jail center, or juvenile correctional facility? No Are [...] Peripheral circulatory disorder associated with diabetes mellitus (050303068) Type 2 diabetes mellitus with other circulatory 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s (E11.59) 2015 Active confirmed (Migrated)unc ontrolled sugar level over 200 Problem Hyperglycemia due to type 2 diabetes mellitus (130646585470692) Type 2 diabetes mellitus with hyperglycemia (E11.65) Active confirmed Problem Generalized anxiety disorder (77646386) Generalized anxiety disorder (F41.1) Active confirmed Problem 85968321 Other chronic pain (G89.29) Active confirmed Problem Chronic kidney disease due to hypertension (336071761945075) Hypertensive chronic kidney disease with stage 1 through stage 4 chronic kidney disease, or unspecified chronic kidney disease (I12.9) Active confirmed Problem 082322025288746 Primary osteoarthritis, 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) Active confirmed Problem 760326086 Primary osteoarthritis, right hand (M19.041) Active confirmed Problem Pes planus (39728375) Flat foot [pes planus] (acquired), right foot (M21.41) Active confirmed Problem Pes planus (68641740) Flat foot [pes planus] (acquired), left foot (M21.42) Active confirmed Problem 80458440 Cervicalgia (M54.2) Active confirmed C2, C4- per X-ray: C/spine loss of lordosis to Kyphosis Disc deg C7-T1 Spondylosis Problem 904154482 Gastroesophageal reflux disease without esophagitis (K21.9) Active confirmed Problem 035774263 Vertigo (R42) Active confirmed Problem 450576086 Erectile dysfunction, unspecified erectile dysfunction type (N52.9) Active confirmed Problem 2225561 Arthritis (M19.90) Active confirmed Problem 230667497 Elevated liver enzymes (R74.8) Active confirmed Problem Depressive disorder (19920625) Depressive disorder (F32.9) Active confirmed Problem 552466169 History of prostate cancer (Z85.46) Active confirmed Problem 677355457 Hepatic steatosis (K76.0) Active confirmed Problem 95508951068125424 Right wrist tendonitis (M77.8) Active confirmed Problem 346872985289743 Cortical age-related cataract of both eyes (H25.013) Active confirmed Problem 560674625 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) Active confirmed Problem 883449580 Spondylosis of cervical region without myelopathy or radiculopathy (M47.812) Active confirmed Problem Chronic kidney disease stage 3 (323678135) Chronic kidney disease, stage III (moderate) (N18.30) Active confirmed Problem 30626145349207212 Degenerative TFCC tear, right (M24.131) Active confirmed Problem 546221545677 Type 2 diabetes mellitus with diabetic chronic kidney disease (E11.22) Active confirmed High 09/2018, tradjenta removed due to pancreatitis Problem Schizoaffective disorder, depressive type (06842681) Schizoaffective disorder, depressive type (F25.1) Active confirmed med Problem 1373205 Psoriasis (L40.9) Active confirmed med Problem 236128102 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 Problem 95828193 Balanitis (N48.1) Inactive confirmed Problem 435425490 Chronic kidney disease, stage III (moderate) (N18.3) Inactive confirmed High [place] physican 08/2016 follows [place] : Stage III renal disease. to see renal in 4 months . DM since 2006 and HTn since 2014--told them I follow his Bs and tellme he sees Diabetic center at [facility] Problem Type II diabetes mellitus without 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 (933296157) Encounter for diabetic foot exam (E11.9) Inactive confirmed Problem 94873501 Primary hypertension (I10) Inactive confirmed Problem 38396569 Hypothyroidism, unspecified type (E03.9) Active confirmed Med Problem 07984257 Hyperlipidemia, unspecified hyperlipidemia type (E78.5) Active confirmed med Problem 85543781 Presbyopia of both eyes (H52.4) Active confirmed [...] - Medicare Replacement Plan [address] [place] [address] [id number] Feliciano Strong Self - patient is the insured [employer] [address] [place], [place] [id number] [phone] [id number] Feliciano Strong Self - patient is the insured DENTAL Medicaid [employer] [address] [place] [address] [phone] [id number] Feliciano Strong Self - patient is the insured [facility] Medicare Plans [address] [place] [address] [id number] Feliciano Strong Self - patient is the insured DENTAL [place] [address] [address] [place] [address] [phone] [id number] 2 [id number] Feliciano Strong Self - patient [...] 2019 knee surgery Hospitalization History Reason Date(Month/Year) cov2019 see above
--- OUTSIDE RECORDS SUMMARY | 2024-09-25 14:22 | XMS_ITS ---
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 Dysphagia 02/06/2024 Anxiety 12/24/2023 Depression 12/24/2023 Diabetes mellitus ([facility] V24, [facility] V28) Hyperlipidemia 12/24/2023 Hypertension 12/24/2023 Hypothyroidism 12/24/2023 Psoriasis 12/24/2023 Continuous leakage of urine 10/05/2023 Polyp of colon 10/05/2023 Renal failure 09/27/2023 Transaminitis 09/27/2023 Chronic midline low back pain without sciatica 0 08/15/2023 Hepatic steatosis 07/24/2023 Lightheadedness 03/01/2023 Stage 3a chronic kidney disease ([facility] V24, [facility] /[facility] V28) 02/12/2023 Cough 08/26/2019 Suspected COVID-19 virus infection 08/26/2019 Reactive depression 08/26/2019 Lower abdominal pain 08/26/2019 Stage 1 chronic kidney disease 03/05/2018 Vasovagal syncope 03/05/2018 Mixed hyperlipidemia 05/10/2017 Hypothyroidism (acquired) 04/10/2017 Prostate cancer ([facility] V24, [facility] V28) 11/24 Overview (04/18/2024): Last Assessment & Plan: Referral [...] squamous cell carcin alexy of lower gingiva ([facility] V24, [facility] V28) Treatment Medications Current Day (Day 1 , [...] Date Diagnosed Date Resolved Date Oral cancer (CMS/HCC V24, CMS/HCC V28) 04/17/2024 04/24/2024
--- OUTSIDE RECORDS SUMMARY | 2024-09-25 14:22 | XMS_ITS | Clinical Summary ---
Author Organization [facility] Address [address] [place] [address] Care Team Providers Care Seating And Mobility Technologist Name Role Phone LennieLoriefrances ESTRADA Primary Care Provider Apple Villatoro DO Unavailable [phone] Allergies Active Allergy Reactions Criticality Noted [...] NSAIDS, Renal insuffciency NSAIDS, Renal insuffciency Medications INSULIN GLARGINE 100 UNIT/ML pen injection Inject [...] Active Blood Pressure Monitor Device See Admin Instructions . Active Continuous Blood Gluc Bar Pilot (FreeStyle Marlen 2 [place]) Device 1 PER YEAR Active Continuous Blood Gluc Sensor (FreeStyle Marlen 2 Sensor) [facility] See Admin Instructions . 10/28/2021 Active ibuprofen (MOTRIN) 600 MG tablet [...] 08/16/2023 Community acquired pneumonia 08/26/2019 08/16/2023 Immunizations Immunization Administration Dates Next Due Influenza (AFLURIA/FLUZONE) Inactivated/Split [...] 03/05/2028 03/05/2018 Abdominal Aortic Aneurysm (AAA) Screening Completed 08/26/2019, 09/11/2018 Hepatitis B Vaccines Aged Out [...] Comprehensive Metabolic Panel (02/28/2023 1:22 PM EDT) [facility] Glucose 409(HH) 65 - 99 mg/dL 02/28/2023 [...] 13 7 - 17 02/28/2023 2:17 PM EDT [facility] Blood specimen (specimen) (Plasma/Serum) 02/28/2023 1:22 PM EDT 02/28/2023 1:48 PM EDT [facility] LAB BLOOD ORDERABLES Final Re sult HOSPITAL LAB See Below [facility] [address] [place] [address] * POCT Microalbumin (02/12/2023 10:37 AM EDT) Microalbumin, POC 10.0 MG/L Creatinine Urine, POC 100.0 MG/DL Microalbumin/Cr eat Ratio, POC <30 MG/G Lot Number [id number] Watch Assembler Pass Pass Urine 02/12/2023 10:3 7 AM EDT Amor Velasco MD POINT OF CARE TEST ORDERABLES Final Result * (ABNORMAL) Hemoglobin A1c with Estimated Average [...] AM EDT Jennifer Monterroso MD LAB BLOOD ORDERABLES Final Result HOSPITAL LAB * CT Abdomen+pelvis w/contrast (08/26/2019 [...] cm in short axis (series 2 image ) compared to 2016. The aorta is unremarkable. [...] 1.1cm in short axis (series 2 image ) compared to 2016. The aorta isunremarkable. PELVIC [...] agree with the report as now presented. us Jennifer Monterroso MD IMG CT ORDERABLES Final Re sult * Lipid Panel (AM) (03/06/2018 7:31 AM [...] EDT 03/06/2018 7:56 AM EDT Radha Carter GAS STATION ATTENDANT LAB BLOOD ORDERABLES Final Res ult HOSPITAL LAB from Last 3 Months or Most Recently Relevant to Health Maintenance Insurance [facility] MEDICARE PART A & B Advance Directives * Full Code (Latest Code [...] Decision Thoroughly Discussed with: Patient Care Teams Seating And Mobility Technologist Relationship Specialty Start Date End Date Laura Hogue APRN [address] [place] [address] PCP - General Family Medicine 09/04/19 Apple Villatoro DO [address] [place] [address] [address] Cardiovascular Disease 04/12/23
--- OUTSIDE RECORDS SUMMARY | 2024-09-25 14:22 | XMS_ITS | Encounter Summary ---
Author Organization [facility] Address [address] [place] [address] Care Team Providers Care Copy Technician Name Role Phone Jaylene Kong MD Primary Care Provider [phone] Charis Liz PA-C Primary Care Provider [phone] Laura Hogue APRN Primary Care Provider [phone] Apple Villatoro DO Unavailable [phone] Encounter Details Date Type Department Care Team (Late st Contact Info) Description 11/25/2015 Scanned Document [address] [id number] Provider, Generic Social History Tobacco Use Types [...] documented as of this encounter Care Teams Copy Technician Relationship Specialty Start Date End Date Jaylene Kong MD PCP - General Internal Medicine 09/28/15 04/04/17 Charis Liz PA-C PCP - General 04/05/17 09/03/19 Laura Hogue APRN [address] [place] [id number] PCP - General Family Medicine 09/04/19 Apple Villatoro DO [address] [place] [id number] Block Bolter Mule Operator Cardiovascular Disease 04/12/23 documented as of this encounter
--- OUTSIDE RECORDS SUMMARY | 2024-09-25 14:22 | XMS_ITS | Clinical Summary ---
Author Organization [facility] Address [address] [place] [address] Phone Care Team Providers Care Food Quality Tester Name Role Phone Brea Maciel MD Primary Care Provider [phone] Allergies No known active allergies Medications dulaglutide [...] 3 hours. 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 M smoker with a [id number] moderately differentiated SCC of the R mandibular [...] within accepted guidelines, and the oncologist in [place] might not give exactly the same recommendation for treatment. Dysphagia 02/06/2024 Anxiety 12/24/2023 Depression 12/24/2023 Diabetes mellitus (CMS/HCC V24, CMS/HCC V28) Hyperlipidemia 12/24/2023 Hypertension 12/24/2023 Hypothyroidism 12/24/2023 Psoriasis 12/24/2023 Continuous leakage of urine 10/05/2023 Polyp of colon 10/05/2023 Renal failure 09/27/2023 Transaminitis 09/27/2023 Chronic midline low back pain without sciatica 0 08/15/2023 Hepatic steatosis 07/24/2023 Lightheadedness 03/01/2023 Stage 3a chronic kidney disease ([facility] V24, [facility] V28) 02/12/2023 Cough 08/26/2019 Suspected COVID-19 virus infection 08/26/2019 Reactive depression 08/26/2019 Lower abdominal pain 08/26/2019 Stage 1 chronic kidney disease 03/05/2018 Vasovagal syncope 03/05/2018 Mixed hyperlipidemia 05/10/2017 Hypothyroidism (acquired) 04/10/2017 Prostate cancer ([facility] V24, [facility] V28) 11/24 Overview (04/18/2024): Last Assessment & Plan: Referral to Urologist for further monitoring and treatment. Erectile dysfunction following radical prostatec jonathan 11/25/2015 Obstructive sleep apnea syndrome 08/18/2015 Snoring 06/16/2015 Essential hypertension 06/16/2015 Fatigue due to sleep pattern disturbance 016 Resolved Problems Problem Noted Date Diagnosed Date Resolved Date Oral cancer ([facility] V24, [facility] V28) 04/17/2024 04/24/2024 Encounters Date Type Department Care Team Description 08/27/2024 11:58 AM EDT - 08/27/2024 11:59 PM EDT Hospital Encounter [facility] Interventional Radiology [address] [place] [phone] Primary squamous cell carcinoma of lower gingiva ([facility] V24, [facility] V28) Discharge Disposition: Home or Self Care 08/18/2024 10:15 AM EDT Evaluation [facility] Speech Therapy [address] [phone] Vaishali Dolan, CUSTOMER SERVICES COORDINATOR Dysphagia, oropharyngeal (Primary Dx); Malignant neoplasm of lower gum ([facility] V24, [facility] V28) 08/18/2024 Plan of Care Documentation [facility] Speech Therapy [address] [phone] 08/12/2024 Telephone [facility] Hematology Oncology [address] [place] [phone] Myrna Pereyra MA Peg Tube Removal 08/11/2024 1:30 PM EDT Office Visit [facility] Hematology Oncology [address] [place] [phone] Tawana Chang MD 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, CMS/HCC V28) (Primary Dx) 08/08/2024 Telephone [facility] Radiation Oncology [address] [place] [phone] Micaela Sandhu NP 08/06/2024 12:49 PM EST - 08/06/2024 11:59 PM EST Hospital Encounter [facility] Radiation Oncology [address] [place] [phone] Micaela Sandhu, QUAN 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, CMS/HCC V28) (Primary Dx) Discharge Disposition: Home or Self Care 07/19/2024 12:40 PM EST - 07/19/2024 3:17 PM EST Emergency [facility] Emergency [address] [place] [phone] COVID-19 (Primary Dx) Discharge Disposition: Home or Self Care 07/11/2024 1:50 PM EST - 07/11/2024 11:59 PM EST Hospital Encounter [facility] Radiation Oncology [address] [place] [phone] Leyla Flanagan MD 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, CMS/HCC V28) (Primary Dx) Discharge Disposition: Home or Self Care 07/11/2024 1:12 PM EST - 07/11/2024 11:59 PM EST Hospital Encounter [facility] Radiation Oncology [address] [place] [phone] Discharge Disposition: Home or Self Care 07/10/2024 11:10 AM EST - 07/10/2024 11:59 PM EST Hospital Encounter [facility] Radiation Oncology [address] [place] [phone] Discharge Disposition: Home or Self Care 07/09/2024 1:22 PM EST - 07/09/2024 11:59 PM EST Hospital Encounter [facility] Radiation Oncology [address] [place] [phone] Discharge Disposition: Home or Self Care 07/08/2024 1:09 PM EST - 07/08/2024 11:59 PM EST Hospital Encounter [facility] Radiation Oncology [address] [place] [phone] Discharge Disposition: Home or Self Care 07/08/2024 [facility] Radiation Oncology [address] [place] [phone] Brea Plunkett RN 07/07/2024 12:53 PM EST - 07/07/2024 11:59 PM EST Hospital Encounter [facility] Radiation Oncology [address] [place] [phone] Discharge Disposition: Home or Self Care 07/04/2024 1:50 PM EST - 07/04/2024 11:59 PM EST Hospital Encounter [facility] Radiation Oncology [address] [place] [phone] Leyla Flanagan MD 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, CMS/HCC V28) (Primary Dx) Discharge Disposition: Home or Self Care 07/04/2024 1:00 PM EST - 07/04/2024 11:59 PM EST Hospital Encounter [facility] Radiation Oncology [address] [place] [phone] Discharge Disposition: Home or Self Care 07/03/2024 12:51 PM EST - 07/03/2024 11:59 PM EST Hospital Encounter [facility] Radiation Oncology [address] [place] [phone] Discharge Disposition: Home or Self Care 07/02/2024 1:08 PM EST - 07/02/2024 11:59 PM EST Hospital Encounter [facility] Radiation Oncology [address] [place] [phone] Discharge Disposition: Home or Self Care 07/01/2024 1:07 PM EST - 07/01/2024 11:59 PM EST Hospital Encounter [facility] Radiation Oncology [address] [place] [phone] Discharge Disposition: Home or Self Care 06/30/2024 1:26 PM EST - 06/30/2024 11:59 PM EST Hospital Encounter [facility] Radiation Oncology [address] [place] [phone] Lázaro Campuzano MD Head and neck cancer ([facility]/HCC V24, CMS/HCC V28) (Primary Dx) Discharge Disposition: Home or Self Care 06/30/2024 12:41 PM EST - 06/30/2024 11:59 PM EST Hospital Encounter [facility] Radiation Oncology [address] [place] [phone] Discharge Disposition: Home or Self Care 06/27/2024 1:24 PM EST - 06/27/2024 11:59 PM EST Hospital Encounter [facility] Radiation Oncology [address] [place] [phone] Leyla Flanagan MD 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, CMS/HCC V28) (Primary Dx) Discharge Disposition: Home or Self Care 06/27/2024 1:06 PM EST - 06/27/2024 11:59 PM EST Hospital Encounter [facility] Radiation Oncology [address] [place] [phone] Discharge Disposition: Home or Self Care from Last 3 Months Immunizations Name Administration [...] History Date Comments Hypertension DX:Hypertension Diabetes mellitus ([facility] V 24, [facility] V28) DX:Diabetes mellitus (HCC) Obstructive sleep apnea syndrome 08/18/2015 DX:Obstructive sleep apnea syndrome Arthritis DX:Arthritis Depression DX:Depression Chronic kidney disease DX:Chroni c kidney disease Prostate cancer ([facility] V24 , [facility] V28) DX:Prostate cancer ([facility]) Primary insomnia 04/16/2024 Family History Medical History [...] Value Date Recorded Sex Assigned at Male 08/26/2024 3:13 PM EDT Legal Sex Male 3:32 PM EST Gender Identity Male 08/26/2024 3:13 PM EDT Sexual Orientation Not on file Occupation Industry Job Start Date Job End Date retired Not on file Not on file Not on file Obstetrics History Last Filed Vital Signs Vital Sign Reading Time Taken Comments Blood Pressure 166/86 08/11/2024 1:24 PM EDT Pulse 84 08/11/2024 1:24 PM EDT Temperature 37.1 ??C (98.7 ??F) 08/11/2024 1:24 PM ED T Respiratory Rate 16 08/06/2024 1:34 PM EST Oxygen Saturation 100% 08/11/2024 1:24 PM EDT Inhaled Oxygen Concentration - - Weight 66.7 kg (147 lb) 08/18/2024 11:00 AM EDT Height 162.6 cm (5' 4 ) 06/12/2024 10:50 AM EST Body Mass Index 25.23 06/12/2024 10:50 AM EST Plan of Treatment Upcoming Encounters Date Type Department Care Team (Late st Contact Info) Description 10/06/2024 12:30 PM EDT Treatment [facility] Occupational Therapy [address] [phone] Whitley Richey OTR/L 10/06/2024 2:00 PM EDT Treatment [facility] Speech Therapy [address] [phone] Vaishali Dolan, CUSTOMER SERVICES COORDINATOR 02/11/2025 1:30 PM EDT Office Visit [facility] Hematology Oncology [address] [place] [phone] Tawana Chang MD [address] [place] [address] 02/17/2025 2:00 PM EDT Appointment [facility] Radiation Oncology [address] [phone] Micaela Sandhu NP [address] [place], [place] [phone] Health Maintenance Due Date Last Done Comments COVID-19 Vaccine (#1) 02/06/1961 Diabetes: Annual Foot Exam 02/06/1966 Diabetes: Annual Retina Eye Exam 02/06/1966 Zoster Vaccines (1 of 2) 02/06/1975 RSV Immunization Adult Patients (1 - Risk 60-74 years 1-dose series) 2016 Abdominal Aortic Aneurysm (AAA) Screen 05/03/2022 Colorectal Cancer Screening: Colonoscopy 05/03/2022 Falls Risk Assessment 05/03/2022 Medicare Annual Wellness Visit 05/03/2022 Social Influencers of Health Screening 05/03/2022 Diabetes: Annual Urine Albumin-Creatinine Ratio (uACR) 02/13/2024 02/12/2023 Influenza Vaccine (Season Ended) 2025 02/24/2018 Diabetes: Blood Sugar Control Test (HGBA1C) 02/19/2025 08/19/2024, 07/09/2024, 04/16/2024, Additional history exists Depression Screening 07/09/2025 07/09/2024 Diabetes: Annual GFR (Glomerular Filtration Rate) 08/19/2025 08/19/2024, 07/19/2024, 06/12/2024, Additional history exists Hypertension/CHF/CAD Annual BMP Blood Test 08/19/2025 08/19/2024, 07/19/2024, 06/12/2024, Additional history exists Cholesterol Screening (Lipid Panel) 08/19/2029 08/19/2024, 09/24/2023, 03/06/2018 DTaP,Tdap,and Td Vaccines (3 - [...] age to complete this topic Meningococcal B Vaccine Aged Out No l onger eligible based on patient's age to complete this topic RSV Immunization Patients Under 20 months Aged Out No longer eligible based on patient's age to complete this topic Varicella Vaccines Aged Out No longer eligible based on patient's age to complete this topic Goals Goal Patient Goal Type Associated Problems Recent Progress Patient-Stated? Author CUSTOMER SERVICES COORDINATOR [facility] General No Vaishali Dolan, CUSTOMER SERVICES COORDINATOR Note: Pt will consume least restrictive PO diet without changes to medical or respiratory status to maintain adequate oral nutrition hydration CUSTOMER SERVICES COORDINATOR ST[facility] General No Vaishali Dolan, CUSTOMER SERVICES COORDINATOR Note: Pt will consume recommended diet textures and utilize swallow strategies given min verbal or visual cues Pt will participate in development of personalized HEP and perform 3-4xs/wk with min assist for modifications Pt will participate in ongoing education re dysphagia s/p surgery/chemoradiation and techniques for symptom management Procedures Procedure Name Priority Date/Time Associated Diagnosis Comments ECG ANNOTATED 07/21/2024 POCT GLUCOSE BLOOD Routine 07/19/2024 12 :03 PM EST CBC WITH AUTO DIFFERENTIAL STAT 07/19/2024 12:00 PM EST BASIC METABOLIC PANEL STAT 07/19/2024 12:00 PM EST CBC AND DIFFERENTIAL STAT 07/19/2024 12:00 PM EST ECG 12-LEAD STAT 07/19/2024 11:50 AM EST XR CHEST 2 VIEWS STAT 07/19/2024 11:2 0 AM EST RESPIRATORY VIRUS PANEL MOLECULAR STUDY STAT 07/19/2024 11:08 AM EST RAD ONC MSQ TREATMENT SUMMARY Routine 07/11/2024 [...] TREATMENT SUMMARY Routine 06/27/2024 1:24 PM EST from Last 3 Months Results * ECG-Annotated (07/21/2024) us Provider Onbase MD ECG ORDERABLES Final Result * (ABNORMAL) POCT Glucose, blood (07/19/2024 12:03 PM EST) [facility] Glucose POCT 171(H) 70 - 100 mg/dL 07/19/2024 12:07 PM [facility] Blood Capillary blood specimen / Unknown 07/19/2024 12:03 PM EST 07/19/2024 12:08 PM EST us Generic Provider Poct LAB POINT OF CARE TEST DOCKED DEVICE UNSOLICITED RESULTS Final Result [facility] [address] [place] [address], * (ABNORMAL) CBC auto differential (07/19/2024 12:00 PM EST) [facility] WBC 5.9 4.8 - 10.8 K/mcL LAB HEMETOLOGY METHOD 07/19/2024 12:32 PM [facility] RBC 5.10 4.50 - 5.50 M/mcL LAB HEMETOLOGY METHOD 07/19/2024 12:32 PM [facility] Hemoglobin 11.6(L) 13.5 - 17.5 g/dL LAB HEMETOLOGY METHOD 07/19/2024 12:32 PM [facility] Hematocrit 36.7(L) 42.0 - 54.0 % LAB HEMETOLOGY METHOD 07/19/2024 12:32 PM [facility] MCV 72.0(L) 79.0 - 98.0 FL LAB HEMETOLOGY METHOD 07/19/2024 12:32 PM [facility] MCH 22.7(L) 27.0 - 32.0 pcg LAB HEMETOLOGY METHOD 07/19/2024 12:32 PM [facility] MCHC 31.6(L) 32.0 - 37.0 g/dL LAB HEMETOLOGY METHOD 07/19/2024 12:32 PM [facility] RDW 19.5(H) 11.0 - 15.0 % LAB HEMETOLOGY METHOD 07/19/2024 12:32 PM [facility] Platelets 175 130 - 400 K/mcL LAB HEMETOLOGY METHOD 07/19/2024 12:32 PM [facility] MPV 10.0 7.0 - 11.0 FL LAB HEMETOLOGY METHOD 07/19/2024 12:32 PM [facility] NRBC 0.0 <1.0 % LAB HEMETOLOGY METHOD 07/19/2024 12:32 PM [facility] NRBC Absolute 0.00 <0.10 K/mcL LAB HEMETOLOGY METHOD 07/19/2024 12:32 PM [facility] Neutrophils Relative 84.0 % LAB HEMETOLOGY METHOD 07/19/2024 12:32 PM [facility] Lymphocytes Relative 3.9 % LAB HEMETOLOGY METHOD 07/19/2024 12:32 PM [facility] Monocytes Relative 11.0 % LAB HEMETOLOGY METHOD 07/19/2024 12:32 PM [facility] Eosinophils Relative 0.3 % LAB HEMETOLOGY METHOD 07/19/2024 12:32 PM [facility] Basophils Relative 0.3 % LAB HEMETOLOGY METHOD 07/19/2024 12:32 PM [facility] Immature Granulocytes Relative 0.5 % LAB HEMETOLOGY METHOD 07/19/2024 12:32 PM [facility] Neutrophils Absolute 4.97 1.50 - 7.00 K/mcL LAB HEMETOLOGY METHOD 07/19/2024 12:32 PM [facility] Lymphocytes Absolute 0.23(L) 1.00 - 5.00 K/mcL LAB HEMETOLOGY METHOD 07/19/2024 12:32 PM EST [facility] Monocytes Absolute 0.65 0.20 - 1.00 K/[facility] HEMETOLOGY METHOD 07/19/2024 12:32 PM EST [facility] Eosinophils Absolute 0.02 0.00 - 0.50 K/[facility] LAB HEMETOLOGY METHOD 07/19/2024 12:32 PM EST [facility] Basophils Absolute 0.02 0.00 - 0.20 K/[facility] LAB HEMETOLOGY METHOD 07/19/2024 12:32 PM [facility] Immature Granulocytes Absolute 0.03 0.00 - 0.03 K/[facility] HEMETOLOGY METHOD 07/19/2024 12:32 PM [facility] Blood Venous blood specimen / Unknown Venipuncture / Unknown 07/19/2024 12:00 PM EST 07/19/2024 12:09 PM EST us Enrique Greenwood MD LAB BLOOD ORDERABLES Final Result [facility] [address] [place] [address], * (ABNORMAL) Basic metabolic panel (07/19/2024 12:00 PM EST) Sodium 134 133 - 145 mmol/L LAB CHEMISTRY METHOD 07/19/2024 12:34 PM [facility] Potassium 4.1 3.5 - 5.5 mmol/L LAB CHEMISTRY METHOD 07/19/2024 12:34 PM [facility] Chloride 102 96 - 110 mmol/L LAB CHEMISTRY METHOD 07/19/2024 12:34 PM [facility] CO2 27 21 - 32 mmol/L LAB CHEMISTRY METHOD 07/19/2024 12:34 PM [facility] Anion Gap 5 3 - 11 LAB CHEMISTRY METHOD 07/19/2024 12:34 PM EST [facility] Glucose 180(H) 70 - 100 mg/dL LAB CHEMISTRY METHOD 07/19/2024 12:34 PM [facility] BUN 14 5 - 25 mg/dL LAB CHEMISTRY METHOD 07/19/2024 12:34 PM [facility] Creatinine 1.13 0.70 - 1.30 mg/dL LAB CHEMISTRY METHOD 07/19/2024 12:34 PM EST [facility] eGFR 71 >=60 mL/min/1. 73m2 LAB CHEMISTRY METHOD 07/19/2024 12:34 PM [facility] Comment:Calculation based on the??Chronic Kidney Disease Epidemiology Collaboration (CKD-EPI) equation refit??without adjustment for race. BUN/Creatinine Ratio 12.4 LAB CHEMISTRY METHOD 07/19/2024 12:34 PM [facility] Calcium 9.0 8.5 - 10.5 mg/dL LAB CHEMISTRY METHOD 07/19/2024 12:34 PM EST [facility] Blood Venous blood specimen / Unknown Venipuncture / Unknown 07/19/2024 12:00 PM EST 07/19/2024 12:09 PM EST us Enrique Greenwood MD LAB BLOOD ORDERABLES Final Result [facility] [address] [place] [address], * ECG 12 lead (07/19/2024 11:50 AM EST) Ventricular Rate ECG 96 BPM GEMUSE Atrial Rate 96 BPM GEMUSE P-R Interval 130 ms GEMUSE QRS Duration 88 ms GEMUSE Q-T Interval 350 ms GEMUSE QTc 442 ms GEMUSE P Wave [place] 63 degrees GEMUSE R [place] 54 degrees GEMUSE T [place] 23 degrees GEMUSE ECG Interpretation Normal sinus rhythm Normal ECG No previous ECGs available Confirmed by SHELLEY ALEMAN ([id number]) on 07/20/2024 6:14:43 PM GEMUSE 07/19/2024 11:5 0 AM EST 07/20/2024 6:14 PM EST Enrique Greenwood MD ECG ORDERABLES Final Resul t GEMUSE * XR Chest 2 Views (07/19/2024 11:20 AM EST) Anatomical Region Laterality Modality Body Radiographic Juanis ging 07/19/2024 11:3 3 AM EST Impressions 07/19/2024 11:36 AM EST FINDINGS/IMPRESSION: NO ACUTE FINDINGS. Normal heart size and pulmonary vascularity. ??Lungs are clear and costophrenic angles are sharp. ??No acute osseous abnormality. -------- FINAL REPORT -------- Dictated By: Hammad Cotto Dictated Date: 07/19/2024 11:33 ET Assigned Physician: Hammad Cotto Reviewed and Electronically Signed By: Hammad Cotto Signed Date: 07/19/2024 11:36 ET Workstation ID: [id number] Transcribed By: Self Edit Transcribed Date: 07/19/2024 11:33 ET Narrative 07/19/2024 11:36 AM EST XR CHEST 2 VIEWS INDICATION: dyspnea TECHNIQUE: XR CHEST 2 VIEWS COMPARISON: No priors available. Procedure Note Hammad Cotto MD - 07/19/2024 XR CHEST 2 VIEWS INDICATION: dyspnea TECHNIQUE: XR CHEST 2 VIEWS COMPARISON: No priors available. IMPRESSION: FINDINGS/IMPRESSION: NO ACUTE FINDINGS. Normal heart size and pulmonary vascularity. Lungs are clear andcostophrenic angles are sharp. No acute osseous abnormality. -------- FINAL REPORT -------- Dictated By: Hammad Cotto Dictated Date: 07/19/2024 11:33 ET Assigned Physician: Hammad Cotto Reviewed and Electronically Signed By: Hammad Cotto Signed Date: 07/19/2024 11:36 ET Workstation ID: [id number] Transcribed By: Self Edit Transcribed Date: 07/19/2024 11:33 ET us Enrique Greenwood MD IMG XR PROCEDURES Final Res ult * (ABNORMAL) Respiratory virus panel molecular study (07/19/2024 11:08 AM EST) Pathologist [facility] Adenovirus Detection by PCR Not Detected Not Detected LAB MICROBIOLOGY METHOD 07/19/2024 12:08 PM [facility] Influenza A PCR Not Detected Not Detected LAB MICROBIOLOGY METHOD 07/19/2024 12:08 PM [facility] Influenza B PCR Not Detected Not Detected LAB MICROBIOLOGY METHOD 07/19/2024 12:08 PM [facility] Coronavirus 229E Not Detected Not Detected LAB MICROBIOLOGY METHOD 07/19/2024 12:08 PM [facility] Coronavirus HKU1 Not Detected Not Detected LAB MICROBIOLOGY METHOD 07/19/2024 12:08 PM [facility] Coronavirus OC43 Not Detected Not Detected LAB MICROBIOLOGY METHOD 07/19/2024 12:08 PM [facility] Coronavirus NL63 Not Detected Not Detected LAB MICROBIOLOGY METHOD 07/19/2024 12:08 PM [facility] Parainfluenza Virus 1 Not Detected Not Detected LAB MICROBIOLOGY METHOD 07/19/2024 12:08 PM [facility] Parainfluenza Virus 2 Not Detected Not Detected LAB MICROBIOLOGY METHOD 07/19/2024 12:08 PM [facility] Parainfluenza Virus 3 Not Detected Not Detected LAB MICROBIOLOGY METHOD 07/19/2024 12:08 PM [facility] Parainfluenza Virus 4 Not Detected Not Detected LAB MICROBIOLOGY METHOD 07/19/2024 12:08 PM [facility] RSV PCR Not Detected Not Detected LAB MICROBIOLOGY METHOD 07/19/2024 12:08 PM [facility] Human Metapneumovirus A and B Not Detected Not Detected LAB MICROBIOLOGY METHOD 07/19/2024 12:08 PM [facility] Rhinovirus/Entero virus Not Detected Not Detected LAB MICROBIOLOGY METHOD 07/19/2024 12:08 PM EST [facility] Bordetella pertussis Not Detected Not Detected LAB MICROBIOLOGY METHOD 07/19/2024 12:08 PM EST [facility] Bordetella parapertussis Not Detected Not Detected LAB MICROBIOLOGY METHOD 07/19/2024 12:08 PM EST [facility] Mycoplasma pneumo by PCR Not Detected Not Detected LAB MICROBIOLOGY METHOD 07/19/2024 12:08 PM EST [facility] Chlamydia pneumoniae Not Detected Not Detected LAB MICROBIOLOGY METHOD 07/19/2024 12:08 PM EST [facility] SARS COV-2 Detected(A ) Not Detected LAB MICROBIOLOGY METHOD 07/19/2024 12:08 PM [facility] Swab Both anterior nares / Unknown Non-blood Collection / Unknown 07/19/2024 11:08 AM EST 07/19/2024 11:14 AM EST [facility] - 07/19/2024 12:08 PM EST Testing was performed using the [employer] Respiratory Pathogen PCR Assay. All results must be correlated with the clinical findings. Results should not be used as the sole basis for diagnosis. False Negative results may occur from the presence of sequence variants in the region targeted by the assay or the presence of inhibitors. Results may be affected by concurrent antiviral/antimicrobial therapy or levels of organisms that are below the limit of detection. us Enrique Greenwood MD LAB MICROBIOLOGY - GENERAL ORDERABLES Final Result [facility] [address] [place] [address], * Rad Onc Msq Treatment Summary (07/11/2024 1:55 PM EST) Pathologist [facility] Treatment Site Rt lower gum/Bneck MOSAIQ RADIATION [...] 1:20 PM EST Physician Radiation Oncology RADIATION MELANIE [...] GY ORDERABLES Final Result Performing Organization Address City/[facility]/ZIP Co de Phone Number MOSAIQ RADIATION ONCOLOGY [...] Msq Treatment Summary (07/01/2024 2:05 PM EST) Pathologist [facility] Treatment Site Rt lower gum/Bneck MOSAIQ RADIATION [...] RADIATION ONCOLOGY from Last [address] [place] [address] [address] [employer] MEDICARE Member Subscriber Plan / Payer (Ef fective 2019-Present) Name:Feliciano Santana Relation to Subscriber:Self Name:Feliciano Santana Payer ID:[id number] Group ID:[id number] Type:Not on file Address: [address] [place] [address] [facility] OPTIONS Member Subscriber Plan / Payer (Ef fective 2023-Present) Name:Feliciano Santana Relation to Subscriber:Self Name:Feliciano Santana Payer ID:[id number] Group ID:[id number] Type:Not on file Address: [address] [place] [address] Care Teams Food Quality Tester Relationship Specialty Start Date End Date Brea Maciel MD [address] [place] [address] PCP - General 10/08/23
--- OUTSIDE RECORDS SUMMARY | 2024-09-25 14:23 | XMS_ITS | Encounter Summary ---
Author Organization [employer] Address [address] [facility] 7t [place] [address] Care Team Providers Care Insole Cementer Name Role Phone Brea Maciel MD Primary Care Provider [phone] Reason for Visit * Reason Onset Date Comments Durable Medical Equipment 04/11/2024 Encounter Details Date Type Department Care Team ([facility] Contact Info) Description 04/11/2024 Telephone [facility] [address] [place] [address] Brea Maciel MD [address] [place] [phone] Durable Medical Equipment Social History Tobacco Use [...] - 04/11/2024 3:09 PM EST Tc from [facility] ([facility]) requesting DME supply for pt Shower Chair, Race toilet seat with hand rest, walker with seat . Callback number [phone] documented in this encounter Plan of Treatment Not on file documented as of this encounter Visit Diagnoses Not on filedocumented in this encounter Additional Health Concerns Assessment Noted Time PHQ-9 Depression Total Score: 10 024 11:21 AM EDT documented as of this encounter Care Teams Insole Cementer Relationship Specialty Start Date End Date Brea Maciel MD [address] [place] [address] PCP - General Family Medicine 09/21/23 documented as of this encounter
--- OUTSIDE RECORDS SUMMARY | 2024-09-25 14:23 | XMS_ITS | Encounter Summary ---
Author Organization [employer] Address [address] [facility] 7t [place] [address] Care Team Providers Care Certified Midwife Name Role Phone Brea Maciel MD Primary Care Provider [phone] Reason for Visit * Reason Onset Date Comments FYI 08/06/2024 Encounter Details Date Type Department Care Team ([facility] st Contact Info) Description 08/06/2024 Telephone [facility] [address] [place] [address] Brea Maciel MD [address] [place] [address] FYI Social History Tobacco Use Types Packs/Day Years [...] encounter Miscellaneous Notes * Telephone Encounter - Michelle Suero RN - 08/07/2024 11:13 AM EST Noted. Pt to follow up PRN. * Telephone Encounter - Mateo Ryan - 08/06/2024 4:45 PM EST Tc from [facility]) calling in stating that they are discharging pt from speech therapy today. (08/06/2024) documented in this encounter Plan of Treatment Not on file documented as of this encounter Visit Diagnoses Not on filedocumented in this encounter Additional Health Concerns Assessment Noted Time PHQ-9 Depression Total Score: 0 07/09/19 25 8:57 AM EST documented as of this encounter Care Teams Certified Midwife Relationship Specialty Start Date End Date Brea Maciel MD [address] [place] [phone] PCP - General Family Medicine 09/21/23 documented as of this encounter
--- OUTSIDE RECORDS SUMMARY | 2024-09-25 14:23 | XMS_ITS | Encounter Summary ---
Author Organization [facility] Address [address] [place] [address] Care Team Providers Care Personalized Living Manager Name Role Phone LennieLoriefrances ESTRADA Primary Care Provider [phone] Apple Villatoro DO Unavailable [phone] Encounter Details Date Type Department Care Team (Late st Contact Info) Description 08/31/[address] [facility] [address] [facility] [address] [place] [phone] Shabnam Merrill MD [address] [place] [address] Social History Tobacco Use Types Packs/Day Years [...] 12:00 AM EDT) Shabnam Merrill MD PATHOLOGY/CYTOLOGY ORDERABLES Fi nal Result documented in this encounter Visit Diagnoses Not on filedocumented in this encounter Additional Health Concerns Infection Onset Date Last Indicated Resolved Time COVID-19 Comment:(+) test 08/26/2019, resulted 08/28/2019 08/28/2019 08/28/2019 03/01/2023 7:39 AM E DT documented as of this encounter Care Teams Personalized Living Manager Relationship Specialty Start Date End Date Laura Hogue APRN [address] [place] [phone] PCP - General Family Medicine 09/04/19 Apple Villatoro DO [address] [place] [address] Saw Maker Cardiovascular Disease 04/12/23 documented as of this encounter
--- OUTSIDE RECORDS SUMMARY | 2024-09-25 14:23 | XMS_ITS | Encounter Summary ---
Author Organization [employer] Address [address] [facility] [address] 7[address] [place] [address] Care Team Providers Care Vp Information Technology Name Role Phone Brea Maciel MD Primary Care Provider [phone] Encounter Details Date Type Department Care Team (Late st Contact Info) Description 07/24/2023 Orders Only [facility] [address] [place] [address] Shawn Mendez MD [address] [place] [address] Social History Tobacco Use Types Packs/Day Years [...] on filedocumented in this encounter Care Teams Vp Information Technology Relationship Specialty Start Date End Date Brea Maciel MD [address] [place] [address] PCP - General Family Medicine 09/21/23 documented as of this encounter
--- OUTSIDE RECORDS SUMMARY | 2024-09-25 14:23 | XMS_ITS | Clinical Summary ---
Author Organization [employer] Address [address] [facility] 7t [place] [address] Care Team Providers Care Philosophy And Religion Instructor Name Role Phone Brea Maciel MD Primary Care Provider [phone] Allergies Active Allergy Reactions Criticality Noted Date [...] 1 kit in the morning. 1 kit 4 Active Cosentyx Sensoready, 300 MG, 150 MG/ML solution auto-injector 4 Active naproxen (Naprosyn) 500 MG tablet TAKE 1 TABLET BY MOUTH TWICE A DAY NEEDED FOR PAIN FOR 7 DAYS 4 Active Alcohol Swabs (Alcohol Prep) pads 2 Units 4 times daily. 200 each 11 4 Active Blood Glucose Monitoring Suppl (FreeStyle Lite) w/Device kit 1 Units before breakfast, before lunch, before evening meal, and at bedtime. 1 kit 4 Active Lancets misc 1 Units 4 times daily. 200 each 11 4 Active Continuous Glucose Roaster Helper (FreeStyle Marlen 2 [place]) device 1 Units 4 times daily. 1 each 4 Active Continuous Glucose Sensor (FreeStyle Marlen 2 Sensor) misc 1 Units every 14 (fourteen) days. 2 each 11 4 Active tadalafil (Cialis) 5 MG tablet TAKE 1 TABLET BY MOUTH EVERY DAY NEEDED FOR SEXUAL ACTIVITY 4 Active oxyCODONE (Roxicodone) 10 MG immediate release tablet Take 10 mg by mouth every 4 (four) hours if needed. 4 Active sennosides (Senokot) 8.6 MG tablet Take 2 tablets by mouth Once per day. 4 Active tamsulosin (Flomax) 0.4 MG 24 hr capsule Take 1 capsule by mouth Once per day. 4 Active amLODIPine (Norvasc) 10 MG tablet Take 1 tablet (10 mg) by mouth Once per day. 90 tablet 1 4 Active atorvastatin (Lipitor) 10 MG tablet Take 1 tablet (10 mg) by mouth Once per day. 90 tablet 1 4 Active insulin glargine (Lantus SoloStar) 100 UNIT/ML pen Inject 24 Units under the skin at bedtime. 54 mL 1 4 Active levothyroxine (Synthroid, Levoxyl) 50 MCG tablet Take 1 tablet (50 mcg) by mouth before breakfast. 90 tablet 4 Active sertraline (Zoloft) 100 MG tablet Take 1 tablet (100 mg) by mouth Once per day. 90 tablet 1 4 Active Omeprazole 20 MG tablet delayed-release Take 1 tablet (20 mg) by mouth Once per day. 90 tablet 3 4 04/18/20 25 Active acetaminophen (Tylenol 8 Hour) 650 MG ER tablet Take 1 tablet (650 mg) by mouth every 8 (eight) hours if needed for mild pain. Do not crush, chew, or split. 90 tablet 4 04/18/20 25 Active doxepin (SINEquan) 10 MG capsule Take 1 capsule (10 mg) by mouth at bedtime. 30 capsule 2 4 Active calcipotriene (Dovonex) 0.005 % creamIndication s:Psoriasis APPLY 1 GRAM TOPICALLY TO THE AFFECTED AREA(S) TWICE DAILY DIRECTED 60 g 3 4 Active chlorhexidine (Peridex) 0.12 % solution RINSE BY MOUTH WITH 15 ML AND SPIT OUT FOUR TIMES DAILY DIRECTED 946 mL 4 Active cholecalciferol (Vitamin D-3) 50 MCG (1999 UT) capsule TAKE 1 CAPSULE BY MOUTH EVERY DAY 90 capsule 1 4 Active pen needle 32G x 4 mm misc USE TO INJECT INSULIN QID 200 each 11 4 05/20/20 25 Active insulin lispro (HumaLOG KWIKPEN) 100 UNIT/ML injection Inject 5 Units under the skin with breakfast, with lunch, and with evening meal. 6 mL 5 5 Active lidocaine (Lidoderm) 5 % patchIndication s:Chronic midline low back pain without sciatica Apply 1 patch topically Once per day. Remove & discard patch within 12 hours or as directed by MD. 30 patch 1 5 Active metFORMIN (Glucophage) 850 MG tablet Take 1 tablet (850 mg) by mouth with breakfast and with evening meal. 180 tablet 1 5 Active aspirin 81 MG chewable tablet Chew 1 tablet (81 mg) Once per day. 90 tablet 3 5 08/20/19 26 Active FREESTYLE LITE test strip Use to test blood sugar QID 100 each 12 4 09/21/19 25 nystatin (Mycostatin) 763370 UNIT/ML suspension Take 1 mL (100,000 Units) by mouth 4 times daily for 15 days. 60 mL 5 09/04/19 25 traMADol (Ultram) 50 MG tabletIndicatio ns:Throat cancer (CMS/HCC) Take 1 tablet (50 mg) by mouth every 8 (eight) hours if needed for severe pain for up to 7 days. 15 tablet 5 08/27/19 25 Active Problems Problem Noted Date Diagnosed Date Keratoconjunctivitis sicca o f both eyes not due to Sjogren's syndrome 09/24/2024 Overview (09/24/2024): Followed by Dr. Jakob Harrell at [facility] discharge follow-up 04/16/2024 Assessment & Plan (04/16/2024 [...] discussed Throat cancer 01/28/2024 Assessment & Plan (08/19/2024 1:37 PM EDT): Patient finished therapy, followed by oncology, Assessment & Plan (01/28/2024 9:04 AM EDT): [...] Colon Cancer Screening for recheck. Referring to Election Watcher. Continuous leakage of urine 10/05/2023 Assessment & [...] use of insulin 03/05/2018 Assessment & Plan (08/19/2024 1:37 PM EDT): Improving, A1c 7.1%, he was off metformin, renewed, follow up in 3 months Assessment & Plan (01/21/2024 12:12 PM EDT): Increasing Trulicity to 1.5 mg. Continue to monitor glucose at home, and follow up with nurse ( bring sensor with written glucose readings). Assessment & Plan (11/05/2023 4:40 PM EDT): Discussed medications and refills as needed. Increase insulin dosage. F/u in one month. Relevant Medications Continuous Glucose Roaster Helper (Freestyle Marlen 2 [place]) device Continuous Glucose Roaster Helper (Freestyle Marlen 2 Sensor) misc Insulin glargine [...] reported. Vasovagal syncope 03/05/2018 Mixed hyperlipidemia 05/10/2017 Assessment & Plan (08/19/2024 1:37 PM EDT): On statin therapy, ordered new lipid panel, hs increased risk of plaque disease due to radiotherapy Hypothyroidism (acquired) 04/10/2017 Assessment & Plan (08/19/2024 1:36 PM EDT): Clinically euthyroid, new labs will be ordered for guidance of therapy Erectile dysfunction following radical prostatec jonathan 11/25/2015 Prostate cancer 11/25/2015 Assessment & Plan (09/21/2023 1:54 PM EDT): Referral to Urologist for further monitoring and treatment. Obstructive sleep apnea syndrome 08/18/2015 Essential hypertension 06/16/2015 Assessment & Plan (08/19/2024 1:36 PM EDT): Controlled, continue low sodium diet and exercise as tolerated, keep bp log, follow up in 4 months Assessment & Plan (08/15/2023 7:52 PM EDT): Elevated, he is on losartan 100mg, amlodipine 10mg, chlorthalidone 25mg, he is off losartan and amlodipine, will send medication to [facility]. Also he does not have a bp monitor at home, will send one, follow up with pcp in 2-3 months Resolved Problems Problem Noted Date Diagnosed Date Resolved Date Community acquired pneumonia 08/26/2019 09/21/2023 Encounters Date Type Department Care Team Description 08/19/2024 1:15 PM EDT Office Visit [facility] [address] [place] [address] Santosh Walker MD Mixed hyperlipidemia (Primary Dx); Hypothyroidism (acquired); Throat cancer (CMS/HCC); Essential hypertension; Type 2 diabetes mellitus without 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, with long-term current use of insulin (CMS/HCC) 08/19/2024 Travel 08/06/2024 Telephone [facility] [address] [place] [address] Brea Maciel MD FYI 07/30/2024 Telephone [facility] [address] [place] [address] Brea Maciel MD Verbal Order 07/27/2024 Refill [facility] [address] [place] [address] Manjinder Tucker MD Psoriasis 07/22/2024 Orders Only [facility] [address] [place], [place] [phone] Hoa Noe MD 07/14/2024 Telephone [facility] [address] [place] [address] Brea Maciel MD Prior Authorization 07/09/2024 8:45 AM EST Office Visit [facility] [address] [place] [address] Santosh Walker MD Type 2 diabetes mellitus without 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, with long-term current use of insulin (CMS/HCC) (Primary Dx); Chronic midline low back pain without sciatica; Dietary counseling; Exercise counseling; Mixed hyperlipidemia; Essential hypertension 07/09/2024 Travel 07/02/2024 Patient Outreach [facility] [address] [place] [address] Brea Maciel MD Care Coordination (CHW outreach for SDOH PT-1 and food needs-referral completed /) 07/02/2024 Patient Outreach [facility] [address] [place] [address] Brea Maciel MD Pre-visit Planning (SDOH positive, Tobacco screening negative.) from Last 3 Months Immunizations Name Administration [...] Sign Reading Time Taken Comments Blood Pressure 140/88 08/19/2024 1:22 PM EDT Pulse 72 08/19/2024 1:22 PM EDT Temperature 36.4 ??C (97.5 ??F) 08/19/2024 1:22 PM ED T Respiratory Rate 20 08/19/2024 1:22 PM EDT Oxygen Saturation 98% 08/19/2024 1:22 PM EDT Inhaled Oxygen Concentration - - Weight 66.8 kg (147 lb 3.2 oz) 08/19/2024 1:22 P M EDT Height 160 cm (5' 3 ) 08/19/2024 1:22 PM EDT Body Mass Index 26.08 08/19/2024 1:22 PM EDT Plan of Treatment Health Maintenance [...] 2 - Risk 2-dose series) 04/06/2024 10/05/2023 Diabetes: Urine Protein Screening 09/30/2024 10/01/2023, 02/12/2023 Diabetes: Foot Exam 10/04/2024 10/05/2023, 10/05/2023, 10/05/2023, Additional history exists Diabetes: Hemoglobin A1C 11/19/2024 025, 07/09/2024, 04/16/2024, Additional history exists Alcohol/Substance Use Screening 04/16/2025 04/16/2024 Tobacco Screening 04/16/2025 04/16/2024 SDOH Screening 07/02/2025 07/02/2024 Depression Screening 07/09/2025 07/09/2024, 07/09/19 Lipid Panel 08/19/2025 08/19/2024, 09/24/2023 Dental X-Ray: Full Mouth 12/27/2026 12/27/2023 DTaP/Tdap/Td [...] Procedure Name Priority Date/Time Associated Diagnosis Comments TSH W/REFLEX TO FT4 Routine 08/19/2024 2 :02 PM EDT Hypothyroidism (acquired) LIPID PANEL, STANDARD Routine 08/19/2024 2:02 PM EDT Mixed hyperlipidemia COMPREHENSIVE METABOLIC PANEL Routine 08/19/2024 2:02 PM EDT Mixed hyperlipidemia POCT GLYCATED HEMOGLOBIN, TOTAL Routine 08/19/2024 1:44 PM EDT Type 2 diabetes mellitus without 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, with long-term current use of insulin (CMS/HCC) POCT GLUCOSE Routine 08/19/2024 1:43 PM EDT Type 2 diabetes mellitus without 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, with long-term current use of insulin (CMS/HCC) ECG 12-LEAD Routine 07/19/2024 12:59 PM EST POCT GLYCATED HEMOGLOBIN, TOTAL Routine 07/09/2024 9:15 AM EST Type 2 diabetes mellitus without 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, with long-term current use of insulin (CMS/HCC) POCT GLUCOSE Routine 07/09/2024 9:14 AM EST Type 2 diabetes mellitus without 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, with long-term current use of insulin (CMS/[facility]) PANORAMIC RADIOGRAPHIC IMAGE Routine 12/27/2023 9:00 AM EDT PROTEIN CREATININE RATIO, URINE Routine 10/01/2023 8:20 AM EDT Renal failure, unspecified chronicity HEPATITIS C AB W/REFL TO HCV RNA, QN, PCR Routine 09/24/2023 8:28 AM EDT Encounter for health-related screening from Last 3 Months or Most Recently Relevant to Health Maintenance Results * TSH W/Reflex to FT4 (08/19/2024 2:02 PM EDT) TSH reflex Free T4 2.47 0.32 - 4.0 uIU/mL [facility] Blood Venous blood specimen / Unknown 08/19/2024 2:02 PM EDT 08/19/2024 6:34 PM EDT us Santosh Reyes MD LAB BLOOD ORDERABL ES Final Result [facility] [address] [place] [phone] * (ABNORMAL) Lipid Panel, Standard (08/19/2024 2:02 PM EDT) Triglycerides 137 <150 mg/dL [facility] Comment:Desirable Triglyceri de: less than 150 mg/dLBorderline High Triglyceride 150-199 mg/dLHigh Triglyceride: 200-499 mg/dLVery High Triglyceride: greater than or equal to 5OO mg/dL Cholesterol 180 <200 mg/dL [facility] Comment:Desirable Cholestero l: less than 200 mg/dLBorderline High Cholesterol: 200-239 mg/dLHigh Cholesterol: greater than 239 mg/dL LDL Cholesterol Calculated 106(H) <100 mg/dL [facility] Comment:Desirable LDL: less than 100 mg/dLNear Optimal/Above Optimal LDL: 110- 129 mg/dLBorderline High LDL: 130-159 mg/dLHigh LDL: 160-189 mg/dLVery High LDL: greater than or equal to 190 mg/dL HDL Cholesterol 47 >40 mg/dL [facility] Comment:Desirable HDL: great er than 40 mg/dL Note: This HDL assay may give artificially low results in patients with liver disease. Blood Venous blood specimen / Unknown 08/19/2024 2:02 PM EDT 08/19/2024 6:34 PM EDT us Santosh Reyes MD LAB BLOOD ORDERABL ES Final Result [facility] [address] [place] [phone] * (ABNORMAL) Comprehensive Metabolic Panel (08/19/2024 2:02 PM EDT) Sodium 141 135 - 145 mmol/L [facility] Potassium 3.8 3.3 - 5.1 mmol/L [facility] Chloride 107 96 - 108 mmol/L [facility] Carbon Dioxide 26 22 - 29 mmol/L [facility] Anion Gap 12 12 - 20 [facility] Urea Nitrogen (BUN) 15 9 - 16 mg/dL [facility] Creatinine, Serum 0.97 0.5 - 1.4 mg/dL [facility] Estimated Glomerular Filt Rate >60 [facility] Comment:Chronic Kidney Disea se: Estimated GFR < 60 mL/min/1.32h6Txadqv Kidney Disease: Estimated GFR < 15 mL/min/1.73m2 Glucose 128(H) 60 - 115 mg/dL [facility] Calcium 9.5 8.4 - 10.2 mg/dL [facility] Bilirubin, Total 0.3 0.0 - 1.0 mg/dL [facility] Aspartate Amino Transferase 57(H) 5 - 37 U/L [facility] Alanine Aminotransferase 55(H) 0 - 40 U/L [facility] Total Protein 7.9 6.5 - 8.0 g/dL [facility] Albumin Level 3.8 3.5 - 5.0 g/dL [facility] Alkaline Phosphatase 169(H) 39 - 117 U/L [facility] Blood Venous blood specimen / Unknown 08/19/2024 2:02 PM EDT 08/19/2024 6:34 PM EDT Santosh Reyes MD LAB BLOOD ORDERABL ES Final Result [facility] [address] [place] [address] [phone] * (ABNORMAL) POCT HGB A1C (08/19/2024 1:44 PM EDT) Only the most recent of2 resultswithin the time period is included. Hemoglobin A1C 7.1(A) 4.0 - 6.0 % QC Media Lot # [id number] Lot# Expiration Date Blood 08/19/2024 1:44 PM EDT Santosh Reyes MD POINT OF CARE TEST ENTER/EDIT ORDERABLES Final Result * POCT Glucose (08/19/2024 1:43 PM EDT) Only the most recent of2 resultswithin the time period is included. Glucose Blood, POC 172 60 - 200 mg/dL [employer] Lot # [id number] Lot# Expiration Date [id number] Blood Capillary blood specimen / Unknown 08/19/2024 1:43 PM EDT Santosh Reyes MD POINT OF CARE TEST ENTER/EDIT ORDERABLES Final Result * ECG 12 lead (07/19/2024 12:59 PM EST) Hoa Noe MD ECG ORDERABLES Final Res ult * Protein Creatinine Ratio, Urine (10/01/2023 8:20 AM EDT) Creatinine, Urine 43.57 mg/dL [facility] Protein, Total, Random Urine <7 <12 mg/dL [facility] Protein/Creatin ine Ratio, Ur TNP <0.2 [facility] Comment:Unable to calculate urine protein creatinine ratio due tolow creatinine or protein result. 10/01/2023 8:20 AM EDT 10/01/2023 2:00 PM EDT Brea Maciel MD LAB URINE ORDERABLES Final Re sult [facility] [address] [place] [phone] * Hepatitis C Antibody with Reflex to HCV, RNA, Quantitative, Real-Time PCR (09/24/2023 8:28 AM EDT) Hepatitis C Antibody Nonreactive Nonreactive [facility] Comment:Antibodies to HCV no t detected; does not exclude early acuteHCV infection. Blood Venous blood specimen / Unknown 09/24/2023 8:28 AM EDT 09/24/2023 2:45 PM EDT us Brea Maciel MD LAB BLOOD ORDERABLES Final Re sult [facility] [address] [place] [phone] from Last 3 Months or Most Recently Relevant to Health Maintenance Insurance [facility] D[facility] - [facility] Care Teams Philosophy And Religion Instructor Relationship Specialty Start Date End Date Brea Maciel MD [address] [place] [phone] PCP - General Family Medicine 09/21/23
--- OUTSIDE RECORDS SUMMARY | 2024-09-25 14:23 | XMS_ITS | Encounter Summary ---
Author Organization [email or web address] Address [address] [facility] 7t [place] [address] Care Team Providers Care Technical Services Rep Name Role Phone Brea Maciel MD Primary Care Provider [phone] Encounter Details Date Type Department Care Team ([facility] st Contact Info) Description 05/07/2024 Orders Only [place] [facility] [address] [place] [address] Provider, MD Hoa Social History Tobacco Use [...] Laterality Modality Computed Tomogra phy Historical Provider MD VIDAL CT PROCEDURES Edited Result - Final documented in this encounter Visit Diagnoses Not on filedocumented in this encounter Additional Health Concerns Assessment Noted Time PHQ-9 Depression Total Score: 10 024 11:21 AM EDT documented as of this encounter Care Teams Technical Services Rep Relationship Specialty Start Date End Date Brea Maciel MD [address] [place] [address] PCP - General Family Medicine 09/21/23 documented as of this encounter
--- OUTSIDE RECORDS SUMMARY | 2024-09-25 14:23 | XMS_ITS | Encounter Summary ---
Author Organization [employer] Address [address] [facility] 7t [place] [address] Care Team Providers Care Head Of Academic Technology Name Role Phone Brea Maciel MD Primary Care Provider [phone] Reason for Visit * Reason Comments Med Refill Encounter Details Date Type Department Care Team ([facility] Contact Info) Description 05/01/2024 Refill [facility] [address] [place], [place] [phone] Manjinder Tucker MD [address] [place] [address] Psoriasis Social History Tobacco Use Types Packs/Day [...] documented as of this encounter Care Teams Head Of Academic Technology Relationship Specialty Start Date End Date Brea Maciel MD [address] [place] [phone] PCP - General Family Medicine 09/21/23 documented as of this encounter
--- OUTSIDE RECORDS SUMMARY | 2024-09-25 14:23 | XMS_ITS | Encounter Summary ---
Author Organization [facility] Address [address] [place] [address] Care Team Providers Care Laboratory Phlebotomist Name Role Phone Laura Hogue APRN Primary Care Provider Apple Villatoro DO Unavailable [phone] Encounter Details Date Type Department Care Team (Late st Contact Info) Description 03/08/2023 Scanned Document [address] [place] [address] [place] [phone] Provider, Generic Social History Tobacco Use Types [...] Narrative 03/08/2023 Ordered by an unspecified provider. us Generic Provider CV CARDIAC SERVICES ORDERABLES Final Result * HOLTER MONITOR - 24 HOUR (03/07/2023) Anatomical Region Laterality Modality Other Narrative 03/07/2023 Ordered by an unspecified provider. us Generic Provider CV CARDIAC SERVICES ORDERABLES Final Result documented in this encounter Visit Diagnoses Not on filedocumented in this encounter Care Teams Laboratory Phlebotomist Relationship Specialty Start Date End Date Laura Hogue APRN [address] [place] [address] PCP - General Family Medicine 09/04/19 Apple Villatoro DO [address] [place] [address] Fish And Wildlife Biologist Cardiovascular Disease 04/12/23 documented as of this encounter
--- OUTSIDE RECORDS SUMMARY | 2024-09-25 14:23 | XMS_ITS | Encounter Summary ---
Author Organization [employer] Address [address] [facility] [address] 7[address] [place] [address] Care Team Providers Care Core Drill Operator Helper Name Role Phone Brea Maciel MD Primary Care Provider [phone] Encounter Details Date Type Department Care Team ([facility] st Contact Info) Description 02/15/[address] [facility] MED[facility] [address] [place] [address] Brea Maciel MD [address] [place], [place] [phone] Social History Tobacco Use Types Packs/Day Years [...] documented as of this encounter Care Teams Core Drill Operator Helper Relationship Specialty Start Date End Date Brea Maciel MD [address] [place] [address] PCP - General Family Medicine 09/21/23 documented as of this encounter
--- OUTSIDE RECORDS SUMMARY | 2024-09-25 14:23 | XMS_ITS | Encounter Summary ---
Author Organization [facility] Address [address] [place] [address] Care Team Providers Care Recreational Therapy Aide Name Role Phone Laura Hogue APRN Primary Care Provider Apple Villatoro DO Unavailable [phone] Encounter Details Date Type Department Care Team (Late st Contact Info) Description 08/31/2022 Scanned Document [facility] [place] [address] [place] [address] [address], [place] [phone] Laura Hogue APRN [address] [place], [place] [phone] Social History Tobacco Use Types Packs/Day Years [...] documented as of this encounter Care Teams Recreational Therapy Aide Relationship Specialty Start Date End Date Laura Hogue APRN [address] [place] [address] PCP - General Family Medicine 09/04/19 Apple Villatoro DO [address] [place] [address] Garnett Mechanic Cardiovascular Disease 04/12/23 documented as of this encounter
--- OUTSIDE RECORDS SUMMARY | 2024-09-25 14:23 | XMS_ITS | Encounter Summary ---
Author Organization [employer] Address [address] [facility] 7t [place] [address] Care Team Providers Care Community Chest Officer Name Role Phone Brea Maciel MD Primary Care Provider [phone] Reason for Visit * Reason Onset Date Comments Reschedule 06/02/2024 Encounter Details Date Type Department Care Team ([facility] Contact Info) Description 06/02/2024 Telephone [facility] [address] [place] [address] Brea Maciel MD [address] [place] [address] Reschedule Social History Tobacco Use Types Packs/Day [...] documented as of this encounter Care Teams Community Chest Officer Relationship Specialty Start Date End Date Brea Maciel MD [address] [place] [address] PCP - General Family Medicine 09/21/23 documented as of this encounter
--- OUTSIDE RECORDS SUMMARY | 2024-09-25 14:23 | XMS_ITS | Clinical Summary ---
Author Organization [facility] Address [address] [place] [address] Care Team Providers Care Cell Tower Climber Name Role Phone Pcp, Chester Akbar MD Primary Care Provider [phone] Allergies Active Allergy Reactions Criticality Noted Date [...] Recent Progress Patient-Stated? Author Carry glucose tablets [facility] Kimberlyn Coyle, RN Take Novolog 5-10 minutes before each meal [facility] Kimberlyn Coyle, RN Schedule eye exam [facility] Kimberlyn Coyle, RN Check BG TID before breakfast, lunch and dinner and keep log [facility] Kimberlyn Coyle, RN Care Teams Cell Tower Climber Relationship Specialty Start Date End Date Pcp, Chester Akbar MD [address] [place] [address] PCP - General Bakery Decorator 08/17/21
--- OUTSIDE RECORDS SUMMARY | 2024-09-25 14:23 | XMS_ITS | Encounter Summary ---
Author Organization [employer] Address [address] [facility] 7t [place] [address] Care Team Providers Care Dielectric Testing Machine Operator Name Role Phone Brae Maciel MD Primary Care Provider [phone] Reason for Visit * Reason Comments Med Refill Encounter Details Date Type Department Care Team ([facility] Contact Info) Description 07/27/2024 Refill [facility] [address] [place], [place] [phone] Manjinder Tucker MD [address] [place] [address] Psoriasis Social History Tobacco Use Types Packs/Day [...] documented as of this encounter Care Teams Dielectric Testing Machine Operator Relationship Specialty Start Date End Date Brea Maciel MD [address] [place] [address] PCP - General Family Medicine 09/21/23 documented as of this encounter
--- OUTSIDE RECORDS SUMMARY | 2024-09-25 14:23 | XMS_ITS | Encounter Summary ---
Author Organization [employer] Address [address] [facility] [address] [place] [address] Care Team Providers Care Newspaper Inserter Name Role Phone Brea Maciel MD Primary Care Provider [phone] Reason for Visit * Reason Onset Date Comments medication 01/10/2024 Encounter Details Date Type Department Care Team ([facility] st Contact Info) Description 01/10/2024 Telephone [facility] D[facility] [address] [place] [address] Enrique Soria, DMD [address] [place] [address] medication Social History Tobacco Use Types Packs/Day [...] Meredith Sánchez - 01/10/2024 10:17 AM EDT [place] DOCTOR WADE ADDISON Feliciano Coronado is a 68 y.o. year old male.CALLED TODAY SAYING Stacy DIGINOSE HIM WITH CANCER .YESTERDAY AND HIS IN A LOT OF PAIN.CAN YOU SEND HIM SOMETHING FOR PAIN SHARIF Kumar . documented in this encounter Plan of Treatment Not on file documented as of this encounter Visit Diagnoses Not on filedocumented in this encounter Care Teams Newspaper Inserter Relationship Specialty Start Date End Date Brea Maciel MD [address] [place] [address] PCP - General Family Medicine 09/21/23 documented as of this encounter
--- OUTSIDE RECORDS SUMMARY | 2024-09-25 14:23 | XMS_ITS | Encounter Summary ---
Author Organization [employer] Address [address] [facility] 7t [place] [address] Care Team Providers Care Software Development Intern Name Role Phone Brea Maciel MD Primary Care Provider [phone] Encounter Details Date Type Department Care Team ([facility] st Contact Info) Description 07/22/2024 Orders Only [facility] [address] [place] [address] Provider, MD Hoa Social History Tobacco Use [...] Name Priority Date/Time Associated Diagnosis Comments ECG 12-LEAD Routine 07/19/2024 12:59 PM EST documented in this encounter Results * ECG 12 lead (07/19/2024 12:59 PM EST) us Historical Provider ECG ORDERABLES Final Res ult documented in this encounter Visit Diagnoses Not on filedocumented in this encounter Additional Health Concerns Assessment Noted Time PHQ-9 Depression Total Score: 0 07/09/19 25 8:57 AM EST documented as of this encounter Care Teams Software Development Intern Relationship Specialty Start Date End Date Brea Maciel MD [address] [place] [address] PCP - General Family Medicine 09/21/23 documented as of this encounter
== END 2024-09-25 12:02 | disposition home or self-care (01) ==
LOC: HO.HHCL 12:01
PROVIDERS: Visit Provider Urology
DX: Z12.5 Encounter for screening for malignant neoplasm of prostate (principal); C61 Malignant neoplasm of prostate; N52.1 Erectile dysfunction due to diseases classified elsewhere; E11.69 Type 2 diabetes mellitus with other specified 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
CPT/HCPCS: 36415; 84153

== ENCOUNTER 2024-09-29 08:00 | Outpatient (REF) | payer OTHER, SELFPAY ==
--- OUTSIDE RECORDS SUMMARY | 2024-09-29 08:09 | XMS_ITS | Clinical Summary ---
Author Organization [facility] Address [address] [place] [address] Care Team Providers Care Cooperative Extension Agent Name Role Phone LennieLoriefrances ESTRADA Primary Care Provider [phone] Apple Villatoro DO Unavailable [phone] Allergies Active Allergy Reactions Criticality Noted [...] Admin Instructions . Active Continuous Blood Gluc Sports Manager (FreeStyle Marlen 2 [place]) Device 1 PER YEAR Active Continuous Blood Gluc Sensor (FreeStyle Marlen 2 Sensor) [facility] See Admin Instructions . 10/28/2021 Active ibuprofen [...] Comprehensive Metabolic Panel (02/28/2023 1:22 PM EDT) [facility] Glucose 409(HH) 65 - 99 mg/dL 02/28/2023 2:17 PM EDT [facility] Comment:Fasting: <100 mg/dL, Non-Fasting: <200 mg/dL (ADA 2005) Blood Urea Nitrogen (BUN) 42(H) 8 - 21 mg/dL 02/28/2023 2:[address] [facility] Creatinine 1.5(H) 0.5 - 1.3 mg/dL 02/28/2023 2:17 PM [facility] eGFR 51(L) >59 02/28/2023 2:17 PM [facility] Comment:CKD-EPI (2020) in mL /min/1.73 sq meters. Sodium 133(L) 136 - 145 mmol/L 02/28/2023 2:17 PM [facility] Potassium 3.7 3.4 - 5.3 mmol/L 02/28/2023 2:17 PM [facility] Chloride 95(L) 98 - 107 mmol/L 02/28/2023 2:17 PM [facility] CO2 25 22 - 33 mmol/L 02/28/2023 2:17 PM [facility] Calcium 9.7 8.7 - 10.5 mg/dL 02/28/2023 2:17 PM [facility] Alkaline Phosphatase 105 45 - 128 U/L 02/28/2023 2:17 PM [facility] Aspartate Aminotrans (AST) 40 10 - 55 U/L 02/28/2023 2:17 PM [facility] Alanine Aminotrans (ALT) 59(H) 10 - 55 U/L 02/28/2023 2:17 PM [facility] Bilirubin, Total 0.5 0.2 - 1.0 mg/dL 02/28/2023 2:17 PM [facility] Protein, Total 7.7 6.3 - 8.3 g/dL 02/28/2023 2:17 PM [facility] Albumin 4.2 3.4 - 4.8 g/dL 02/28/2023 2:17 PM [facility] BUN/Creatinine Ratio 28(H) 10.0 - 25.0 Ratio 02/28/2023 2:17 PM [facility] Globulin 3.5 1.5 - 3.9 g/dL 02/28/2023 2:17 PM [facility] Albumin/Globulin Ratio 1.2 1.0 - 3.0 Ratio 02/28/2023 2:17 PM [facility] Anion Gap 13 7 - 17 02/28/2023 2:17 PM EDT [facility] Blood specimen (specimen) (Plasma/Serum) 02/28/2023 1:22 PM EDT 02/28/2023 1:48 PM EDT [facility] BLOOD ORDERABLES Final Re sult HOSPITAL LAB See Below [facility] [address] [place] [address] * POCT Microalbumin (02/12/2023 10:37 AM EDT) Microalbumin, POC 10.0 MG/L Creatinine Urine, POC 100.0 MG/DL Microalbumin/Cr eat Ratio, POC <30 MG/G Lot Number [id number] Repertoire Manager Pass Pass Urine 02/12/2023 10:3 7 AM [...] EDT 03/06/2018 7:56 AM EDT Radha Carter PROGRAM MANAGEMENT INTERN LAB BLOOD ORDERABLES Final Res ult HOSPITAL LAB from Last 3 Months or Most Recently Relevant to Health Maintenance Insurance [facility] MEDICARE PART A & B Advance Directives [...] Decision Thoroughly Discussed with: Patient Care Teams Cooperative Extension Agent Relationship Specialty Start Date End Date Laura Hogue APRN [address] [address] PCP - General Family Medicine 09/04/19 Apple Villatoro DO [address] [place] [address] Refrigeration Systems Installer Cardiovascular Disease 04/12/23
--- OUTSIDE RECORDS SUMMARY | 2024-09-29 08:09 | XMS_ITS | Encounter Summary ---
Author Organization [facility] Address [address] [place] [address] Care Team Providers Care Puttying And Calking Supervisor Name Role Phone Jaylene Kong MD Primary Care Provider [phone] Charis Liz PA-C Primary Care Provider [phone] Laura Hogue APRN Primary Care Provider [phone] Apple Villatoro DO Unavailable [phone] Encounter Details Date Type Department Care Team (Late st Contact Info) Description 11/25/2015 Scanned Document [address] [phone] Provider, Generic Social History Tobacco Use Types [...] documented as of this encounter Care Teams Puttying And Calking Supervisor Relationship Specialty Start Date End Date Jaylene Kong MD PCP - General Internal Medicine 09/28/15 04/04/17 Charis Liz PA-C PCP - General 04/05/17 09/03/19 Laura Hogue APRN [address] [place] [address] PCP - General Family Medicine 09/04/19 Apple Villatoro DO [address] [place] [address] Hay Baler Cardiovascular Disease 04/12/23 documented as of this encounter
--- OUTSIDE RECORDS SUMMARY | 2024-09-29 08:10 | XMS_ITS | Encounter Summary ---
Author Organization [facility] Address [address] [place] [address] Care Team Providers Care Information Consultant Name Role Phone Laura Hogue APRN Primary Care Provider Apple Villatoro DO Unavailable [phone] Encounter Details Date Type Department Care Team (Late st Contact Info) Description 03/01/2020 Scanned Document [facility] Colorectal Surgery [place] [address] [place] [address] Laura Hogue APRN [address] [place], [place] [phone] Social History Tobacco Use Types Packs/Day Years [...] documented as of this encounter Care Teams Information Consultant Relationship Specialty Start Date End Date Laura Hogue APRN [address] [place] [address] PCP - General Family Medicine 09/04/19 Apple Villatoro DO [address] [place] [address] Wafer Cutter Cardiovascular Disease 04/12/23 documented as of this encounter
--- OUTSIDE RECORDS SUMMARY | 2024-09-29 08:10 | XMS_ITS ---
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 Dysphagia 02/06/2024 Anxiety 12/24/2023 Depression 12/24/2023 Diabetes mellitus ([facility] V24, [facility] V28) Hyperlipidemia 12/24/2023 Hypertension 12/24/2023 Hypothyroidism 12/24/2023 Psoriasis 12/24/2023 Continuous leakage of urine 10/05/2023 Polyp of colon 10/05/2023 Renal failure 09/27/2023 Transaminitis 09/27/2023 Chronic midline low back pain without sciatica 0 08/15/2023 Hepatic steatosis 07/24/2023 Lightheadedness 03/01/2023 Stage 3a chronic kidney disease ([facility] V24, [facility] /[facility] V28) 02/12/2023 Cough 08/26/2019 Suspected COVID-19 virus infection 08/26/2019 Reactive depression 08/26/2019 Lower abdominal pain 08/26/2019 Stage 1 chronic kidney disease 03/05/2018 Vasovagal syncope 03/05/2018 Mixed hyperlipidemia 05/10/2017 Hypothyroidism (acquired) 04/10/2017 Prostate cancer ([facility] V24, [facility] V28) 11/24 Overview (04/18/2024): Last Assessment & [...] squamous cell carcin alexy of lower gingiva ([facility] V24, [facility] V28) Treatment Medications Current Day (Day 1 [...]
--- OUTSIDE RECORDS SUMMARY | 2024-09-29 08:11 | XMS_ITS | Encounter Summary ---
Author Organization [employer] Address [address] [facility] 7t [place] [address] Care Team Providers Care Chip Tester Name Role Phone Brea Maciel MD Primary Care Provider [phone] Reason for Visit * Reason Onset Date Comments FYI 08/06/2024 Encounter Details Date Type Department Care Team ([facility] st Contact Info) Description 08/06/2024 Telephone [facility] MED[facility]INE [address] [place] [address] Brea Maciel MD [address] [place] [address] FYI Social History Tobacco Use Types Packs/Day [...] 4:45 PM EST Tc from [facility] (Rehab Evaluation Engineer) calling in stating that they are discharging pt from speech therapy today. (08/06/2024) documented in this encounter Plan of Treatment Not on file documented as of this encounter Visit Diagnoses Not on filedocumented in this encounter Additional Health Concerns Assessment Noted Time PHQ-9 Depression Total Score: 0 07/09/19 25 8:57 AM EST documented as of this encounter Care Teams Chip Tester Relationship Specialty Start Date End Date Brea Maciel MD [address] [place] [address] PCP - General Family Medicine 09/21/23 documented as of this encounter
--- OUTSIDE RECORDS SUMMARY | 2024-09-29 08:11 | XMS_ITS | Clinical Summary ---
Author Organization [facility] Address [address] [place] [address] Care Team Providers Care Tripe Washer Name Role Phone Pcp, Chester Akbar MD Primary Care Provider [phone] Allergies Active Allergy Reactions Criticality Noted Date [...] Recent Progress Patient-Stated? Author Carry glucose tablets [facility] Kimberlyn Coyle, RN Take Novolog 5-10 minutes before each meal [facility] Kimberlyn Coyle, RN Schedule eye exam [facility] Kimberlyn Coyle, RN Check BG TID before breakfast, lunch and dinner and keep log [facility] Kimberlyn Coyle, RN Care Teams Tripe Washer Relationship Specialty Start Date End Date Pcp, Chester Akbar MD [address] [place] [address] PCP - General Tool Supervisor 08/17/21
--- OUTSIDE RECORDS SUMMARY | 2024-09-29 08:11 | XMS_ITS | Clinical Summary ---
Author Organization [facility] Address [address] [place] [address] Phone Care Team Providers Care Urologic Surgeon Name Role Phone Brea Maciel MD Primary Care Provider [phone] Allergies No known active allergies Medications dulaglutide [...] (04/18/2024): 69 y.o. 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 Dysphagia 02/06/2024 Anxiety 12/24/2023 Depression 12/24/2023 Diabetes mellitus (CMS/HCC V24, CMS/HCC V28) Hyperlipidemia 12/24/2023 Hypertension 12/24/2023 Hypothyroidism 12/24/2023 Psoriasis 12/24/2023 Continuous leakage of urine 10/05/2023 Polyp of colon 10/05/2023 Renal failure 09/27/2023 Transaminitis 09/27/2023 Chronic midline low back pain without sciatica 0 08/15/2023 Hepatic steatosis 07/24/2023 Lightheadedness 03/01/2023 Stage 3a chronic kidney disease ([facility] V24, [facility] V28) 02/12/2023 Cough 08/26/2019 Suspected COVID-19 virus infection 08/26/2019 Reactive depression 08/26/2019 Lower abdominal pain 08/26/2019 Stage 1 chronic kidney disease 03/05/2018 Vasovagal syncope 03/05/2018 Mixed hyperlipidemia 05/10/2017 Hypothyroidism (acquired) 04/10/2017 Prostate cancer ([facility] V24, [facility] V28) 11/24 Overview (04/18/2024): Last Assessment & Plan: Referral to Urologist for further monitoring and treatment. Erectile dysfunction following radical prostatec jonathan 11/25/2015 Obstructive sleep apnea syndrome 08/18/2015 Snoring 06/16/2015 Essential hypertension 06/16/2015 Fatigue due to sleep pattern disturbance 016 Resolved Problems Problem Noted Date Diagnosed Date Resolved Date Oral cancer ([facility] V24, [facility] V28) 04/17/2024 04/24/2024 Encounters Date Type Department Care Team Description 08/27/2024 11:58 AM EDT - 08/27/2024 11:59 PM EDT Hospital Encounter [facility] Interventional Radiology [address] [place] [phone] Primary squamous cell carcinoma of lower gingiva ([facility] V24, [facility] V28) Discharge Disposition: Home or Self Care 08/18/2024 10:15 AM EDT Evaluation [facility] Speech Therapy [address] [phone] Vaishali Dolan, COSMETIC SALES ADVISOR Dysphagia, oropharyngeal (Primary Dx); Malignant neoplasm of lower gum ([facility] V24, [facility] V28) 08/18/2024 Plan of Care Documentation [facility] Speech Therapy [address] [phone] 08/12/2024 Telephone [facility] Hematology Oncology [address] [place] [phone] Myrna Pereyra MA Peg Tube Removal 08/11/2024 1:30 PM EDT Office Visit [facility] Hematology Oncology [address] [place] [phone] Tawana Chang MD 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, CMS/HCC V28) (Primary Dx) 08/08/2024 Telephone [facility] Radiation Oncology [address] [place] [phone] Micaela Sandhu NP 08/06/2024 12:49 PM EST - 08/06/2024 11:59 PM EST Hospital Encounter [facility] Radiation Oncology [address] [place] [phone] Micaela Sandhu, QUAN 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, CMS/HCC V28) (Primary Dx) Discharge Disposition: Home or Self Care 07/19/2024 12:40 PM EST - 07/19/2024 3:17 PM EST Emergency [facility] Emergency [address] [place] [phone] COVID-19 (Primary Dx) Discharge Disposition: Home or Self Care 07/11/2024 1:50 PM EST - 07/11/2024 11:59 PM EST Hospital Encounter [facility] Radiation Oncology [address] [place] [phone] Leyla Flanagan MD 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, CMS/HCC V28) (Primary Dx) Discharge Disposition: Home or Self Care 07/11/2024 1:12 PM EST - 07/11/2024 11:59 PM EST Hospital Encounter [facility] Radiation Oncology [address] [place] [phone] Discharge Disposition: Home or Self Care 07/10/2024 11:10 AM EST - 07/10/2024 11:59 PM EST Hospital Encounter [facility] Radiation Oncology [address] [place] [phone] Discharge Disposition: Home or Self Care 07/09/2024 1:22 PM EST - 07/09/2024 11:59 PM EST Hospital Encounter [facility] Radiation Oncology [address] [place] [phone] Discharge Disposition: Home or Self Care 07/08/2024 1:09 PM EST - 07/08/2024 11:59 PM EST Hospital Encounter [facility] Radiation Oncology [address] [place] [phone] Discharge Disposition: Home or Self Care 07/08/2024 [facility] Radiation Oncology [address] [place] [phone] Brea Plunkett RN 07/07/2024 12:53 PM EST - 07/07/2024 11:59 PM EST Hospital Encounter [facility] Radiation Oncology [address] [place] [phone] Discharge Disposition: Home or Self Care 07/04/2024 1:50 PM EST - 07/04/2024 11:59 PM EST Hospital Encounter [facility] Radiation Oncology [address] [place] [phone] Leyla Flanagan MD 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, CMS/HCC V28) (Primary Dx) Discharge Disposition: Home or Self Care 07/04/2024 1:00 PM EST - 07/04/2024 11:59 PM EST Hospital Encounter [facility] Radiation Oncology [address] [place] [phone] Discharge Disposition: Home or Self Care 07/03/2024 12:51 PM EST - 07/03/2024 11:59 PM EST Hospital Encounter [facility] Radiation Oncology [address] [place] [phone] Discharge Disposition: Home or Self Care 07/02/2024 1:08 PM EST - 07/02/2024 11:59 PM EST Hospital Encounter [facility] Radiation Oncology [address] [place] [phone] Discharge Disposition: Home or Self Care 07/01/2024 1:07 PM EST - 07/01/2024 11:59 PM EST Hospital Encounter [facility] Radiation Oncology [address] [facility] 2nd [place] [phone] Discharge Disposition: Home or Self Care from [...] History Date Comments Hypertension DX:Hypertension Diabetes mellitus ([facility] V 24, [facility] V28) DX:Diabetes mellitus (HCC) Obstructive sleep apnea syndrome 08/18/2015 DX:Obstructive sleep apnea syndrome Arthritis DX:Arthritis Depression DX:Depression Chronic kidney disease DX:Chroni c kidney disease Prostate cancer ([facility] V24 , [facility] V28) DX:Prostate cancer (HCC) Primary insomnia 04/16/2024 Family History [...] Info) Description 10/06/2024 12:30 PM EDT Treatment [facility] Occupational Therapy [address] [phone] Whitley Richey, OTR/L 10/06/2024 2:00 PM EDT Treatment [facility] Speech Therapy [address] [phone] Vaishali Dolan, COSMETIC SALES ADVISOR 02/11/2025 1:30 PM EDT Office Visit [facility] Hematology Oncology [address] [place] [phone] Tawana Chang MD [address] [place] [address] 02/17/2025 2:00 PM EDT Appointment [facility] Radiation Oncology [address] [phone] Micaela Sandhu NP [address] [place] [address] Health Maintenance Due Date Last Done Comments [...] Type Associated Problems Recent Progress Patient-Stated? Author COSMETIC SALES ADVISOR [facility] General No Vaishali Dolan, COSMETIC SALES ADVISOR Note: Pt will consume least restrictive PO diet without changes to medical or respiratory status to maintain adequate oral nutrition hydration COSMETIC SALES ADVISOR [facility] General No Vaishali Dolan, COSMETIC SALES ADVISOR Note: Pt will consume recommended diet textures [...] TREATMENT SUMMARY Routine 07/01/2024 2:05 PM EST from Last 3 Months Results * ECG-Annotated (07/21/2024) us Provider Onbase MD ECG ORDERABLES Final Result * (ABNORMAL) POCT Glucose, blood (07/19/2024 12:03 PM EST) [facility] Glucose POCT 171(H) 70 - 100 mg/dL 07/19/2024 12:07 PM EST [facility] Blood Capillary blood specimen / Unknown 07/19/2024 12:03 PM EST 07/19/2024 12:08 PM EST us Generic Provider Poct LAB POINT OF CARE TEST DOCKED DEVICE UNSOLICITED RESULTS Final Result [facility] [address] [place] [address], [place] [phone] * (ABNORMAL) CBC auto differential (07/19/2024 12:00 PM EST) [facility] WBC 5.9 4.8 - 10.8 K/mcL LAB HEMETOLOGY METHOD 07/19/2024 12:32 PM EST [facility] RBC 5.10 4.50 - 5.50 M/mcL LAB HEMETOLOGY METHOD 07/19/2024 12:32 PM [facility] Hemoglobin 11.6(L) 13.5 - 17.5 g/dL LAB HEMETOLOGY METHOD 07/19/2024 12:32 PM EST [facility] Hematocrit 36.7(L) 42.0 - 54.0 % LAB HEMETOLOGY METHOD 07/19/2024 12:32 PM [facility] MCV 72.0(L) 79.0 - 98.0 FL LAB HEMETOLOGY METHOD 07/19/2024 12:32 PM [facility] MCH 22.7(L) 27.0 - 32.0 pcg LAB HEMETOLOGY METHOD 07/19/2024 12:32 PM [facility] MCHC 31.6(L) 32.0 - 37.0 g/dL LAB HEMETOLOGY METHOD 07/19/2024 12:32 PM [facility] RDW 19.5(H) 11.0 - 15.0 % LAB HEMETOLOGY METHOD 07/19/2024 12:32 PM [facility] Platelets 175 130 - 400 K/mcL LAB HEMETOLOGY METHOD 07/19/2024 12:32 PM [facility] MPV 10.0 7.0 - 11.0 FL LAB HEMETOLOGY METHOD 07/19/2024 12:32 PM [facility] NRBC 0.0 <1.0 % LAB HEMETOLOGY METHOD 07/19/2024 12:32 PM [facility] NRBC Absolute 0.00 <0.10 K/mcL LAB HEMETOLOGY METHOD 07/19/2024 12:32 PM [facility] Neutrophils Relative 84.0 % LAB HEMETOLOGY METHOD 07/19/2024 12:32 PM [facility] Lymphocytes Relative 3.9 % LAB HEMETOLOGY METHOD 07/19/2024 12:32 PM [facility] Monocytes Relative 11.0 % LAB HEMETOLOGY METHOD 07/19/2024 12:32 PM [facility] Eosinophils Relative 0.3 % LAB HEMETOLOGY METHOD 07/19/2024 12:32 PM [facility] Basophils Relative 0.3 % LAB HEMETOLOGY METHOD 07/19/2024 12:32 PM EST [facility] Immature Granulocytes Relative 0.5 % LAB HEMETOLOGY METHOD 07/19/2024 12:32 PM [facility] Neutrophils Absolute 4.97 1.50 - 7.00 K/mcL LAB HEMETOLOGY METHOD 07/19/2024 12:32 PM EST [facility] Lymphocytes Absolute 0.23(L) 1.00 - 5.00 K/mcL LAB HEMETOLOGY METHOD 07/19/2024 12:32 PM [facility] Monocytes Absolute 0.65 0.20 - 1.00 K/mcL LAB HEMETOLOGY METHOD 07/19/2024 12:32 PM [facility] Eosinophils Absolute 0.02 0.00 - 0.50 K/mcL LAB HEMETOLOGY METHOD 07/19/2024 12:32 PM EST [facility] Basophils Absolute 0.02 0.00 - 0.20 K/mcL LAB HEMETOLOGY METHOD 07/19/2024 12:32 PM [facility] Immature Granulocytes Absolute 0.03 0.00 - 0.03 K/mcL LAB HEMETOLOGY METHOD 07/19/2024 12:32 PM [facility] Blood Venous blood specimen / Unknown Venipuncture / Unknown 07/19/2024 12:00 PM EST 07/19/2024 12:09 PM EST us Enrique Greenwood MD LAB BLOOD ORDERABLES Final Result [facility] [address] [place] [address], * (ABNORMAL) Basic metabolic panel (07/19/2024 12:00 PM EST) Sodium 134 133 - 145 mmol/L LAB CHEMISTRY METHOD 07/19/2024 12:34 PM [facility] Potassium 4.1 3.5 - 5.5 mmol/L LAB CHEMISTRY METHOD 07/19/2024 12:34 PM [facility] Chloride 102 96 - 110 mmol/L LAB CHEMISTRY METHOD 07/19/2024 12:34 PM [facility] CO2 27 21 - 32 mmol/L LAB CHEMISTRY METHOD 07/19/2024 12:34 PM [facility] Anion Gap 5 3 - 11 LAB CHEMISTRY METHOD 07/19/2024 12:34 PM [facility] Glucose 180(H) 70 - 100 mg/dL LAB CHEMISTRY METHOD 07/19/2024 12:34 PM [facility] BUN 14 5 - 25 mg/dL LAB CHEMISTRY METHOD 07/19/2024 12:34 PM [facility] Creatinine 1.13 0.70 - 1.30 mg/dL LAB CHEMISTRY METHOD 07/19/2024 12:34 PM [facility] eGFR 71 >=60 mL/min/1. 73m2 LAB CHEMISTRY METHOD 07/19/2024 12:34 PM [facility] Comment:Calculation based on the??Chronic Kidney Disease Epidemiology Collaboration (CKD-EPI) equation refit??without adjustment for race. BUN/Creatinine Ratio 12.4 LAB CHEMISTRY METHOD 07/19/2024 12:34 PM [facility] Calcium 9.0 8.5 - 10.5 mg/dL LAB CHEMISTRY METHOD 07/19/2024 12:34 PM [facility] Blood Venous blood specimen / Unknown Venipuncture / Unknown 07/19/2024 12:00 PM EST 07/19/2024 12:09 PM EST us Enrique Greenwood MD LAB BLOOD ORDERABLES Final Result [facility] [address] [place] [address], [place] [phone] * ECG 12 lead (07/19/2024 11:50 AM EST) Ventricular Rate ECG 96 BPM GEMUSE Atrial Rate 96 BPM GEMUSE P-R Interval 130 ms GEMUSE QRS Duration 88 ms GEMUSE Q-T Interval 350 ms GEMUSE QTc 442 ms GEMUSE P Wave [place] 63 degrees GEMUSE R [place] 54 degrees GEMUSE T [place] 23 degrees GEMUSE ECG Interpretation Normal sinus rhythm Normal ECG No previous ECGs available Confirmed by SHELLEY ALEMAN ([id number]) on 07/20/2024 6:14:43 PM GEMUSE 07/19/2024 11:5 0 AM EST 07/20/2024 6:14 PM EST us Enrique Greenwood MD ECG ORDERABLES Final Resul [...] Signed Date: 07/19/2024 11:36 ET Workstation ID: [id number] Transcribed By: Self Edit Transcribed Date: 07/19/2024 [...] Signed Date: 07/19/2024 11:36 ET Workstation ID: [id number] Transcribed By: Self Edit Transcribed Date: 07/19/2024 11:33 ET us Enrique Greenwood MD IMG XR PROCEDURES Final Res ult * (ABNORMAL) Respiratory virus panel molecular study (07/19/2024 11:08 AM EST) Adenovirus Detection by PCR Not Detected Not Detected LAB MICROBIOLOGY METHOD 07/19/2024 12:08 PM [facility] Influenza A PCR Not Detected Not Detected LAB MICROBIOLOGY METHOD 07/19/2024 12:08 PM [facility] Influenza B PCR Not Detected Not Detected LAB MICROBIOLOGY METHOD 07/19/2024 12:08 PM [facility] Coronavirus 229E Not Detected Not Detected LAB MICROBIOLOGY METHOD 07/19/2024 12:08 PM [facility] Coronavirus HKU1 Not Detected Not Detected LAB MICROBIOLOGY METHOD 07/19/2024 12:08 PM [facility] Coronavirus OC43 Not Detected Not Detected LAB MICROBIOLOGY METHOD 07/19/2024 12:08 PM [facility] Coronavirus NL63 Not Detected Not Detected LAB MICROBIOLOGY METHOD 07/19/2024 12:08 PM [facility] Parainfluenza Virus 1 Not Detected Not Detected LAB MICROBIOLOGY METHOD 07/19/2024 12:08 PM [facility] Parainfluenza Virus 2 Not Detected Not Detected LAB MICROBIOLOGY METHOD 07/19/2024 12:08 PM [facility] Parainfluenza Virus 3 Not Detected Not Detected LAB MICROBIOLOGY METHOD 07/19/2024 12:08 PM [facility] Parainfluenza Virus 4 Not Detected Not Detected LAB MICROBIOLOGY METHOD 07/19/2024 12:08 PM [facility] RSV PCR Not Detected Not Detected LAB MICROBIOLOGY METHOD 07/19/2024 12:08 PM [facility] Human Metapneumovirus A and B Not Detected Not Detected LAB MICROBIOLOGY METHOD 07/19/2024 12:08 PM [facility] Rhinovirus/Entero virus Not Detected Not Detected LAB MICROBIOLOGY METHOD 07/19/2024 12:08 PM [facility] Bordetella pertussis Not Detected Not Detected LAB MICROBIOLOGY METHOD 07/19/2024 12:08 PM [facility] Bordetella parapertussis Not Detected Not Detected LAB MICROBIOLOGY METHOD 07/19/2024 12:08 PM [facility] Mycoplasma pneumo by PCR Not Detected Not Detected LAB MICROBIOLOGY METHOD 07/19/2024 12:08 PM [facility] Chlamydia pneumoniae Not Detected Not Detected LAB MICROBIOLOGY METHOD 07/19/2024 12:08 PM [facility] SARS COV-2 Detected(A ) Not Detected LAB MICROBIOLOGY METHOD 07/19/2024 12:08 PM [facility] Swab Both anterior nares / Unknown Non-blood Collection / Unknown 07/19/2024 11:08 AM EST 07/19/2024 11:14 AM [facility] - 07/19/2024 12:08 PM EST Testing was performed using the [employer] AGe Respiratory Pathogen PCR Assay. All results must [...] that are below the limit of detection. Enrique Greenwood MD LAB MICROBIOLOGY - GENERAL ORDERABLES Final Result [facility] [address] [place] [address], * Rad Onc Msq Treatment Summary (07/11/2024 [...] GY ORDERABLES Final Result Performing Organization Address City/[facility] Co de Phone Number [facility] RADIATION ONCOLOGY [...] 2:07 PM EST Physician Radiation Oncology RADIATION ONCJOHAN [...] GY ORDERABLES Final Result Performing Organization Address City/[facility]/ZIP Co de Phone Number [facility] RADIATION [...] RADIATION ONCOLOGY from Last [address] [place] [address] [place] [address] MEDICARE Member Subscriber Plan / Payer ( fective 2019-Present) Name:Feliciano Santana Relation to Subscriber:Self Name:Feliciano Santana Payer ID:[id number] Group ID:[id number] Type:Not on file Address: [address] [place] [address] [facility] OPTIONS Member Subscriber Plan / Payer ( fective 2023-Present) Name:Feliciano Santana Relation to Subscriber:Self Name:Feliciano Santana Payer ID:[id number] Group ID:[id number] Type:Not on file Address: [address] [place] [address] Care Teams Urologic Surgeon Relationship Specialty Start Date End Date Brea Macile MD [address] [place] [address] PCP - General 10/08/23
--- OUTSIDE RECORDS SUMMARY | 2024-09-29 08:11 | XMS_ITS | Encounter Summary ---
Author Organization [employer] Address [address] [facility] 7t [place] [address] Care Team Providers Care Health Professional Name Role Phone Brea Maciel MD Primary Care Provider [phone] Encounter Details Date Type Department Care Team ([facility] st Contact Info) Description 07/22/2024 Orders Only [facility] [address] [place] [address] Provider, MD Hoa Social History Tobacco Use [...] as of this encounter Care Teams Health Professional Relationship Specialty Start Date End Date Brea Maciel MD [address] [place] [phone] PCP - General Family Medicine 09/21/23 documented as of this encounter
--- OUTSIDE RECORDS SUMMARY | 2024-09-29 08:12 | XMS_ITS | Encounter Summary ---
Author Organization [employer] Address [address] [place] [address] Care Team Providers Care Registered Nurse Fetal Name Role Phone Brea Maciel MD Primary Care Provider [phone] Reason for Visit * Reason Onset Date Comments medication 01/10/2024 Encounter Details Date Type Department Care Team ([facility] st Contact Info) Description 01/10/2024 Telephone [facility] ADULT DENTAL [address] [place] [address] Enrique Soria, DMD [address] [place] [address] medication Social History Tobacco Use Types Packs/Day [...] Meredith Sánchez - 01/10/2024 10:17 AM EDT [place] [facility] Feliciano Coronado is a 68 y.o. year old male.CALLED TODAY SAYING Stacy DIGINOSE HIM WITH CANCER .YESTERDAY AND HIS IN A LOT OF PAIN.CAN YOU SEND HIM SOMETHING FOR PAIN SHARIF Kumar . documented in this encounter Plan of Treatment Not on file documented as of this encounter Visit Diagnoses Not on filedocumented in this encounter Care Teams Registered Nurse Fetal Relationship Specialty Start Date End Date Brea Maciel MD [address] [place] [address] PCP - General Family Medicine 09/21/23 documented as of this encounter
--- OUTSIDE RECORDS SUMMARY | 2024-09-29 08:12 | XMS_ITS | Encounter Summary ---
Author Organization [employer] Address [address] [place] [address] Care Team Providers Care Account Review Specialist Name Role Phone Brea Maciel MD Primary Care Provider [phone] Encounter Details Date Type Department Care Team (Late st Contact Info) Description 07/24/2023 Orders Only [facility] [address] [place] [address] Shawn Mendez MD [address] [place] [address] Social History Tobacco Use Types Packs/Day Years [...] on filedocumented in this encounter Care Teams Account Review Specialist Relationship Specialty Start Date End Date Brea Maciel MD [address] [place] [address] PCP - General Family Medicine 09/21/23 documented as of this encounter
--- OUTSIDE RECORDS SUMMARY | 2024-09-29 08:12 | XMS_ITS | Encounter Summary ---
Author Organization [facility] Address [address] [place] [address] Care Team Providers Care Energy Director Name Role Phone Larua Hogue APRN Primary Care Provider [phone] Apple Villatoro DO Unavailable [phone] Encounter Details Date Type Department Care Team (Late st Contact Info) Description 08/31/2022 Scanned Document [facility] [place] [address] [place] [address] [address], [place] [phone] Laura Hogue APRN [address], [place] [phone] Social History Tobacco Use Types Packs/Day Years [...] documented as of this encounter Care Teams Energy Director Relationship Specialty Start Date End Date Laura Hogue APRN [address] [place] [address] PCP - General Family Medicine 09/04/19 Apple Villatoro DO [address] [place] [address] Stock Driver Cardiovascular Disease 04/12/23 documented as of this encounter
--- OUTSIDE RECORDS SUMMARY | 2024-09-29 08:12 | XMS_ITS | Encounter Summary ---
Author Organization [employer] Address [address] [place] [address] Care Team Providers Care Revenue Enforcement Collection Agent Name Role Phone Brea Maciel MD Primary Care Provider Reason for Visit * Reason Onset Date Comments Durable Medical Equipment 04/11/2024 Encounter Details Date Type Department Care Team ([facility] Contact Info) Description 04/11/2024 Telephone [facility] [address] [place] [address] Brea Maciel MD [address] [place] [address] Durable Medical Equipment Social History Tobacco Use [...] - 04/11/2024 3:09 PM EST Tc from [facility] ([facility]) requesting DME supply for pt Shower Chair, Race toilet seat with hand rest, walker with seat . Callback number [phone] documented in this encounter Plan of Treatment Not on file documented as of this encounter Visit Diagnoses Not on filedocumented in this encounter Additional Health Concerns Assessment Noted Time PHQ-9 Depression Total Score: 10 024 11:21 AM EDT documented as of this encounter Care Teams Revenue Enforcement Collection Agent Relationship Specialty Start Date End Date Brea Maciel MD [address] [place] [address] PCP - General Family Medicine 09/21/23 documented as of this encounter
--- OUTSIDE RECORDS SUMMARY | 2024-09-29 08:12 | XMS_ITS | Encounter Summary ---
Author Organization [facility] Address [address] [place] [address] Care Team Providers Care Keno Writer Name Role Phone LennieLoriefrances ESTRADA Primary Care Provider Apple Villatoro DO Unavailable [phone] Encounter Details Date Type Department Care Team (Late st Contact Info) Description 08/31/2022 Scanned Document [facility] 10 [facility] [address] [place] [phone] Shabnam Merrill MD [address] [place] [address] Social History Tobacco Use Types Packs/Day Years [...] documented as of this encounter Care Teams Keno Writer Relationship Specialty Start Date End Date Laura Hogue APRN [address] [place] [address] PCP - General Family Medicine 09/04/19 Apple Villatoro DO [address] [place] [phone] Welder Production Line Arc Cardiovascular Disease 04/12/23 documented as of this encounter
--- OUTSIDE RECORDS SUMMARY | 2024-09-29 08:12 | XMS_ITS | Encounter Summary ---
Author Organization [employer] Address [address] [facility] 7t [place] [address] Care Team Providers Care Retort Press Operator Name Role Phone Brea Maciel MD Primary Care Provider [phone] Encounter Details Date Type Department Care Team ([facility] st Contact Info) Description 05/07/2024 Orders Only [facility] [address] [place] [address] Provider, MD Hoa Social History Tobacco Use [...] documented as of this encounter Care Teams Retort Press Operator Relationship Specialty Start Date End Date Brea Maciel MD [address] [place] [address] PCP - General Family Medicine 09/21/23 documented as of this encounter
--- OUTSIDE RECORDS SUMMARY | 2024-09-29 08:12 | XMS_ITS | Encounter Summary ---
Author Organization [employer] Address [address] [facility] [address] [place] [address] Care Team Providers Care Matrix Bath Operator Name Role Phone Brea Maciel MD Primary Care Provider [phone] Reason for Visit * Reason Onset Date Comments Reschedule 06/02/2024 Encounter Details Date Type Department Care Team ([facility] Contact Info) Description 06/02/2024 Telephone [facility] MEDICINE [address] [place] [address] Brea Maciel MD [address] [place] [phone] Reschedule Social History Tobacco Use Types Packs/Day [...] documented as of this encounter Care Teams Matrix Bath Operator Relationship Specialty Start Date End Date Brea Maciel MD [address] [place] [phone] PCP - General Family Medicine 09/21/23 documented as of this encounter
--- OUTSIDE RECORDS SUMMARY | 2024-09-29 08:12 | XMS_ITS | Encounter Summary ---
Author Organization [employer] Address 75 [facility] 7t [place] [address] Care Team Providers Care Slubber Machine Operator Name Role Phone Brea Maciel MD Primary Care Provider [phone] Reason for Visit * Reason Comments Med Refill Encounter Details Date Type Department Care Team ([facility] Contact Info) Description 07/27/2024 Refill [facility] MED & PEDS [address] [place], [place] [phone] Manjinder Tucker MD [address] [place] [address] Psoriasis Social History Tobacco Use Types Packs/Day [...] documented as of this encounter Care Teams Slubber Machine Operator Relationship Specialty Start Date End Date Brea Maciel MD [address] [place] [address] PCP - General Family Medicine 09/21/23 documented as of this encounter
--- OUTSIDE RECORDS SUMMARY | 2024-09-29 08:12 | XMS_ITS | Encounter Summary ---
Author Organization [employer] Address 75 [facility] 7t [place] [address] Care Team Providers Care Silviculture Professor Name Role Phone Brea Maciel MD Primary Care Provider [phone] Reason for Visit * Reason Comments Med Refill Encounter Details Date Type Department Care Team ([facility] Contact Info) Description 05/01/[address] [facility] MED & PEDS [address] [place], [place] [phone] Manjinder Tucker MD [address] [place] [address] Psoriasis Social History Tobacco Use Types Packs/Day [...] documented as of this encounter Care Teams Silviculture Professor Relationship Specialty Start Date End Date Brea Maciel MD [address] [place] [phone] PCP - General Family Medicine 09/21/23 documented as of this encounter
--- OUTSIDE RECORDS SUMMARY | 2024-09-29 08:12 | XMS_ITS | Encounter Summary ---
Author Organization [employer] Address [address] [facility] [address] 7[address] [place] [address] Care Team Providers Care Boathouse Keeper Name Role Phone rBea Maciel MD Primary Care Provider [phone] Encounter Details Date Type Department Care Team ([facility] st Contact Info) Description 02/15/2024 Telephone [facility] MEDICINE [address] [place] [address] Brea Maciel MD [address] [place], [place] [phone] Social History Tobacco Use Types Packs/Day Years [...] documented as of this encounter Care Teams Boathouse Keeper Relationship Specialty Start Date End Date Brea Maciel MD [address] [place] [address] PCP - General Family Medicine 09/21/23 documented as of this encounter
--- OUTSIDE RECORDS SUMMARY | 2024-09-29 08:12 | XMS_ITS | Clinical Summary ---
Author Organization [employer] Address 75 [facility] 7t [place] [address] Care Team Providers Care Insulation Applicator Name Role Phone Brea Maciel MD Primary Care Provider Allergies Active Allergy Reactions Criticality Noted Date [...] 200 each 11 4 Active Continuous Glucose [employer] Wireman (FreeStyle Marlen 2 [place]) device 1 Units 4 times daily. 1 [...] each 12 4 09/21/19 25 nystatin (Mycostatin) 100994 UNIT/ML suspension Take 1 mL (100,000 Units) by mouth 4 times daily for 15 days. 60 mL 5 09/04/19 25 Active Problems Problem Noted Date Diagnosed Date Keratoconjunctivitis sicca o f both eyes not due to Sjogren's syndrome 09/24/2024 Overview (09/24/2024): Followed by Dr. Jakob Harrell at [facility] discharge follow-up 04/16/2024 Assessment & Plan [...] Colon Cancer Screening for recheck. Referring to Tipple Operator. Continuous leakage of urine 10/05/2023 Assessment & [...] in one month. Relevant Medications Continuous Glucose [employer] Wireman (Freestyle Marlen 2 [place]) device Continuous Glucose [employer] Wireman (Freestyle Marlen 2 Sensor) misc Insulin glargine [...] losartan and amlodipine, will send medication to [facility]. Also he does not have a bp monitor at home, will send one, follow up with pcp in 2-3 months Resolved Problems Problem Noted Date Diagnosed Date Resolved Date Community acquired pneumonia 08/26/2019 09/21/2023 Encounters Date Type Department Care Team Description 08/19/2024 1:15 PM EDT Office Visit [facility] MED & PEDS [address] [place] [address] Santosh Walker MD Mixed hyperlipidemia (Primary Dx); Hypothyroidism (acquired); Throat cancer (CMS/HCC); Essential hypertension; Type 2 diabetes mellitus without 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, with long-term current use of insulin (CMS/HCC) 08/19/2024 Travel 08/06/2024 Telephone [facility] MEDICINE [address] [place] [address] [phone] Brea Maciel MD FYI 07/30/2024 Telephone [facility] [address] [place] [address] [phone] Brea Maciel MD Verbal Order 07/27/2024 Refill [facility] MED & PEDS [address] [place] [address] Manjinder Tucker MD Psoriasis 07/22/2024 Orders Only [facility] [address] [place] [address] [phone] Hoa Noe MD 07/14/2024 Telephone [facility] MED & PEDS [address] [place] [address] Brea Maciel MD Prior Authorization 07/09/2024 8:45 AM EST Office Visit [facility] MED [facility]ED[facility] [address] [place] [address] Santosh Walker MD Type 2 diabetes mellitus without 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, with long-term current use of insulin ([facility]/HCC) (Primary Dx); Chronic midline low back pain without sciatica; Dietary counseling; Exercise counseling; Mixed hyperlipidemia; Essential hypertension 07/09/2024 Travel 07/02/2024 Patient Outreach [facility] MED [facility]EDS [address] [place] [address] Brea Maciel MD Care Coordination ([facility] outreach for SDOH PT-1 and food needs-referral completed /) 07/02/2024 Patient Outreach [facility] MED & PEDS [address] [place] [address] Brea Maciel MD Pre-visit Planning (SDOH positive, [...] 60-74 years 1-dose series) 2016 COVID-19 Vaccine (1 - season) 2024 Influenza Vaccine (#1) 2024 [...] 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, with long-term current use of insulin ([facility]) POCT GLUCOSE Routine 08/19/2024 1:43 PM EDT [...] Free T4 2.47 0.32 - 4.0 uIU/mL [facility] Blood Venous blood specimen / Unknown 08/19/2024 2:02 PM EDT 08/19/2024 6:34 PM EDT us Santosh Reyes MD LAB BLOOD ORDERABL ES Final Result [facility] [address] [place] [phone] * (ABNORMAL) Lipid Panel, Standard (08/19/2024 2:02 PM EDT) Triglycerides 137 <150 mg/dL [facility] Comment:Desirable Triglyceri de: less than 150 mg/dLBorderline High Triglyceride 150-199 mg/dLHigh Triglyceride: 200-499 mg/dLVery High Triglyceride: greater than or equal to 5OO mg/dL Cholesterol 180 <200 mg/dL [facility] Comment:Desirable Cholestero l: less than 200 mg/dLBorderline High Cholesterol: 200-239 mg/dLHigh Cholesterol: greater than 239 mg/dL LDL Cholesterol Calculated 106(H) <100 mg/dL [facility] Comment:Desirable LDL: less than 100 mg/dLNear Optimal/Above Optimal LDL: 110- 129 mg/dLBorderline High LDL: 130-159 mg/dLHigh LDL: 160-189 mg/dLVery High LDL: greater than or equal to 190 mg/dL HDL Cholesterol 47 >40 mg/dL [facility] Comment:Desirable HDL: great er than 40 mg/dL Note: This HDL assay may give artificially low results in patients with liver disease. Blood Venous blood specimen / Unknown 08/19/2024 2:02 PM EDT 08/19/2024 6:34 PM EDT us Santosh Reyes MD LAB BLOOD ORDERABL ES Final Result [facility] [address] [place] [phone] * (ABNORMAL) Comprehensive Metabolic Panel (08/19/2024 2:02 PM EDT) Sodium 141 135 - 145 mmol/L [facility] Potassium 3.8 3.3 - 5.1 mmol/L [facility] Chloride 107 96 - 108 mmol/L [facility] Carbon Dioxide 26 22 - 29 mmol/L [facility] Anion Gap 12 12 - 20 [facility] Urea Nitrogen (BUN) 15 9 - 16 mg/dL [facility] Creatinine, Serum 0.97 0.5 - 1.4 mg/dL [facility] Estimated Glomerular Filt Rate >60 [facility] Comment:Chronic Kidney Disea se: Estimated GFR < 60 mL/min/1.09x2Fwkdga Kidney Disease: Estimated GFR < 15 mL/min/1.73m2 Glucose 128(H) 60 - 115 mg/dL [facility] Calcium 9.5 8.4 - 10.2 mg/dL [facility] Bilirubin, Total 0.3 0.0 - 1.0 mg/dL [facility] Aspartate Amino Transferase 57(H) 5 - 37 U/L [facility] Alanine Aminotransferase 55(H) 0 - 40 U/L [facility] Total Protein 7.9 6.5 - 8.0 g/dL [facility] Albumin Level 3.8 3.5 - 5.0 g/dL [facility] Alkaline Phosphatase 169(H) 39 - 117 U/L [facility] Blood Venous blood specimen / Unknown 08/19/2024 2:02 PM EDT 08/19/2024 6:34 PM EDT Santosh Reyes MD LAB BLOOD ORDERABL ES Final Result [facility] [address] [place] [address] [phone] * (ABNORMAL) POCT HGB A1C (08/19/2024 1:44 PM EDT) Only the most recent of2 resultswithin the time period is included. Hemoglobin A1C 7.1(A) 4.0 - 6.0 % QC Media Lot # [id number] Lot# Expiration Date , Blood 08/19/2024 1:44 PM EDT Santosh Reyes MD POINT OF CARE TEST ENTER/EDIT ORDERABLES Final Result * POCT Glucose (08/19/2024 1:43 PM EDT) Only the most recent of2 resultswithin the time period is included. Glucose Blood, POC 172 60 - 200 mg/dL [employer] Media Lot # [id number] Lot# Expiration Date [id number] Blood Capillary blood specimen / Unknown 08/19/2024 1:43 PM EDT Result [facility] Santosh Reyes MD POINT OF CARE TEST ENTER/EDIT ORDERABLES Final Result * ECG 12 lead (07/19/2024 12:59 PM EST) Result [facility] Hoa Noe MD ECG ORDERABLES Final Res ult * Protein Creatinine Ratio, Urine (10/01/2023 8:20 AM EDT) Creatinine, Urine 43.57 mg/dL [facility] Protein, Total, Random Urine <7 <12 mg/dL [facility] Protein/Creatin ine Ratio, Ur TNP <0.2 [facility] Comment:Unable to calculate urine protein creatinine ratio due tolow creatinine or protein result. 10/01/2023 8:20 AM EDT 10/01/2023 2:00 PM EDT Result [facility] Brea Maciel MD LAB URINE ORDERABLES Final Re sult Performing Organization Address [facility] Co de Phone Number [facility] [address] [place] [phone] * Hepatitis C Antibody with Reflex to HCV, RNA, Quantitative, Real-Time PCR (09/24/2023 8:28 AM EDT) Hepatitis C Antibody Nonreactive Nonreactive [facility] Comment:Antibodies to HCV no t detected; does not exclude early acuteHCV infection. Blood Venous blood specimen / Unknown 09/24/2023 8:28 AM EDT 09/24/2023 2:45 PM EDT Result [facility] Brea Maciel MD LAB BLOOD ORDERABLES Final Re sult Performing Organization Address [facility] Co de Phone Number [facility] [address] [place] [phone] from Last 3 Months or Most Recently Relevant to Health Maintenance Insurance [facility] [employer] OPT[employer] (HMO D-SNP) [place] [id number] [facility] Care Teams Insulation Applicator Relationship Specialty Start Date End Date Brea Maciel MD [address] [place] [address] PCP - General Family Medicine 09/21/23
--- OUTSIDE RECORDS SUMMARY | 2024-09-29 08:12 | XMS_ITS | Encounter Summary ---
Author Organization [facility] Address [address] [place] [address] Care Team Providers Care Bioinformaticist Name Role Phone Laura Hogue APRN Primary Care Provider [phone] Apple Villatoro DO Unavailable [phone] Encounter Details Date Type Department Care Team (Late st Contact Info) Description 03/08/2023 Scanned Document [address] [place] [phone] Provider, Generic Social History Tobacco Use Types [...] on filedocumented in this encounter Care Teams Bioinformaticist Relationship Specialty Start Date End Date Laura Hogue APRN [address] [place] [phone] PCP - General Family Medicine 09/04/19 Apple Villatoro DO [address] [place] [phone] Kinesiology Professor Cardiovascular Disease 04/12/23 documented as of this encounter
[2024-09-29 08:54] LABS: Anion Gap 14 (12-20); Blood Urea Nitrogen 12 mg/dL (9-16); Carbon Dioxide 26 mmol/L (22-29); Chloride 103 mmol/L (96-108); Estimated Glomerular Filt Rate > 60; Potassium 3.9 mmol/L (3.3-5.1); Sodium 139 mmol/L (135-145)
[2024-09-29 08:55] LABS: Creatinine Urine 321.88 mg/dL; Protein/Creatinine Ratio, Ur 0.48 (<0.2); Total Protein Urine Random 156 mg/dL (<12)
== END 2024-09-29 08:01 | disposition home or self-care (01) ==
LOC: HO.LAB 08:00
PROVIDERS: PCP Family Medicine; Visit Provider Internal Medicine Nephrology
DX: E11.21 Type 2 diabetes mellitus with diabetic nephropathy (principal); I12.9 Hypertensive chronic kidney disease with stage 1 through stage 4 chronic kidney disease, or unspecified chronic kidney disease; N18.31 Chronic kidney disease, stage 3a
CPT/HCPCS: 36415; 80051; 82565; 82570; 84156; 84520

== ENCOUNTER 2024-10-01 09:48 | Outpatient (AMB) | payer OTHER, SELFPAY ==
--- NOTE | 2024-10-01 10:24 | HO.NEPHOV ---
Vital Signs 10/01/24 10:25 Height 5 ft 4 in Weight 145 lb 6 oz BMI 25.0 BP 138/80 Blood Pressure Location Rt brachial Position Sitting Pulse 82 Pulse Source Pulse Oximeter Pulse Oximetry (%) 99 Oxygen Delivery Method Room Air Intake Visit Reasons: CKD-Conf Independent Insurance Adjuster Required: Yes Independent Insurance Adjuster Language: Wrap Knitting Machine Operator Services: Independent Insurance Adjuster Present Independent Insurance Adjuster Name: Mel [id number] Information Interpreted: clinical only Accompanied by: Self / Same As Patient Allergies No Known Allergies Allergy (Verified 10/01/24 10:25) HPI Comments Details: Feliciano was seen in follow up for chronic kidney disease and hypertension. He is a longstanding diabetic and hypertensive. He is known to have proteinuric chronic kidney disease for some time. He recently had diagnosis of head and neck malignancy (throat cancer) and underwent right mandibulectomy, neck exploration, tracheostomy and PEG placement. He monitors his blood sugar which is under good control. He is on multiple antihypertensive medications which is keeping his blood pressure at goal. He does not take any excessive nonsteroidal anti-inflammatories. His proteinuria precedes his recent malignancy. He has seen a fire dispatcher in [place] long ago. He never had a renal biopsy. His renal function has been fairly stable. He denies nausea, vomiting, diarrhea, chest pain, shortness of breath, paroxysmal nocturnal dyspnea, orthopnea, pedal edema or orthostatic symptoms. He has no family history of any renal disease. [facility] Medical History (Updated 06/11/24 @ 14:11 by Oleg Willson MD) Hyperlipidemia Anxiety Depression History of prostate cancer Hypothyroidism Psoriasis Type 2 diabetes mellitus without 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, with assisted current use of insulin pump Chronic kidney disease Diabetes Hypertension Surgical History History of arthroplasty of knee Hx of radical prostatectomy Social History Household Members: None Housing: Apartment Do you presently have visiting nurse or other home services: No Patient Tobacco Use Status: Former Tobacco user Second Hand Smoke Exposure: No Substance Use Type: Marijuana service: No Review of Systems Const All systems reviewed & are unremarkable except as noted in HPI and below Physical Exam Vital Signs: Last Vital Signs Pulse 82 10/01/24 10:25 BP 138/80 10/01/24 10:25 Pulse Ox 99 10/01/24 10:25 Oxygen Delivery Method Room Air 10/01/24 10:25 BMI result Body Mass Index 25.0 Const General: comfortable and no acute distress Orientation/consciousness: patient oriented x3 HEENT Head: Yes normocephalic Mouth: Normal oral and palatal mucosa present Eyes EOM: EOMs intact bilaterally Neck Neck: Yes supple Resp Auscultation: clear to auscultation bilaterally Cardio Jugular venous distension: no JVD Rate: regular rate GI Palpation (GI): Soft to palpation Auscultation: normal bowel sounds General: Yes no CVA tenderness Back/Spine/Pelvis Back: no CVA tenderness Skin General skin exam: no rashes or lesions noted Neuro General: patient oriented x3 and moves all extremities Extrem General: Yes no pedal edema Results Reviewed Nephrology Results: Hgb 12.3 g/dl (14.0-18.0) L 02/28/24 WBC 7.9 X10*3/uL (4.8-10.8) 02/28/24 Plt Count 168 X10*3/uL (160-400) 02/28/24 Sodium 139 mmol/L (135-145) 09/29/24 Potassium 3.9 mmol/L (3.3-5.1) 09/29/24 Chloride 103 mmol/L (96-108) 09/29/24 Carbon Dioxide 26 mmol/L (22-29) 09/29/24 BUN 12 mg/dL (9-16) 09/29/24 Creatinine 1.07 mg/dL (0.5-1.4) 09/29/24 Calcium 9.5 mg/dL (8.4-10.2) 08/19/24 Phosphorus 3.0 mg/dL (2.7-4.5) 07/11/24 PTH Intact 45.0 pg/mL (8.7-77.1) 07/11/24 Urine Protein 100 (2+) mg/dL (Neg-Trace) H 02/26/24 Urine Creatinine 321.88 mg/dL 09/29/24 Protein/Creatinin Ratio 0.48 (<0.2) H 09/29/24 Assessment & Plan Assessment & Plan (1) Diabetic nephropathy: Code(s): E11.21 - Type 2 diabetes mellitus with diabetic nephropathy Category: Medical Qualifiers: Diabetes mellitus type: type 2 Qualified Code(s): E11.21 - Type 2 diabetes mellitus with diabetic nephropathy (2) Hypertension: Code(s): I10 - Essential (primary) hypertension Category: Medical Qualifiers: Hypertension type: primary hypertension Qualified Code(s): I10 - Essential (primary) hypertension (3) CKD stage 3a, GFR 45-59 ml/min: Code(s): N18.31 - Chronic kidney disease, stage 3a Category: Medical Plan 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 He has H/O proteinuria. His renal functions are very close to his baseline. He had a renal ultrasound in the past which did not show any structural abnormalities of the kidney. He is on multiple antihypertensive medications to keep his blood pressure at goal. He should maintain good hydration. I am considering initiating him on SGLT2 inhibitor with time after reviewing all the evolving data. He is on angiotensin receptor malu. He avoids nonsteroidal anti-inflammatories. I would not make any medication changes today. All these have been explained in great detail. Answered all questions and follow-up appointment given. Orders: Orders Electrolytes 6 Months E11.21 - Type 2 diabetes mellitus with diabetic nephropathy, I10 - Essential (primary) hypertension, N18.31 - Chronic kidney disease, stage 3a Protein Creatinine Ratio, Ur 6 Months E11.21 - Type 2 diabetes mellitus with diabetic nephropathy, I10 - Essential (primary) hypertension, N18.31 - Chronic kidney disease, stage 3a Creatinine 6 Months E11.21 - Type 2 diabetes mellitus with diabetic nephropathy, I10 - Essential (primary) hypertension, N18.31 - Chronic kidney disease, stage 3a Blood Urea Nitrogen 6 Months E11.21 - Type 2 diabetes mellitus with diabetic nephropathy, I10 - Essential (primary) hypertension, N18.31 - Chronic kidney disease, stage 3a Calcium 6 Months E11.21 - Type 2 diabetes mellitus with diabetic nephropathy, I10 - Essential (primary) hypertension, N18.31 - Chronic kidney disease, stage 3a Hemoglobin A1c 6 Months E11.21 - Type 2 diabetes mellitus with diabetic nephropathy, I10 - Essential (primary) hypertension, N18.31 - Chronic kidney disease, stage 3a Coding Level of Care Code Est Pt Level 4 (78901) Diagnoses Diabetic nephropathy associated with type 2 diabetes mellitus E11.21 Diabetes mellitus type: type 2 Primary hypertension I10 Hypertension type: primary hypertension CKD stage 3a, GFR 45-59 ml/min N18.31
[2024-10-01 10:25] VITALS: BP 138/80; PULSE 82; O2SAT 99; BMI 25.0
--- OUTSIDE RECORDS SUMMARY | 2024-10-01 10:41 | XMS_ITS | Encounter Summary ---
Author Organization [employer] Address [address] [facility] 7t [place] [address] Care Team Providers Care Traffic Control Technician Name Role Phone Brea Maciel MD Primary Care Provider [phone] Reason for Visit * Reason Onset Date Comments FYI 08/06/2024 Encounter Details Date Type Department Care Team ([facility] st Contact Info) Description 08/06/2024 Telephone [facility] MED[facility]INE [address] [place] [address] Brea Maciel MD [address] [place] [address] FYI Social History Tobacco Use Types Packs/Day [...] 4:45 PM EST Tc from [facility] (Rehab Adjunct History Instructor) calling in stating that they are discharging pt from speech therapy today. (08/06/2024) documented in this encounter Plan of Treatment Not on file documented as of this encounter Visit Diagnoses Not on filedocumented in this encounter Additional Health Concerns Assessment Noted Time PHQ-9 Depression Total Score: 0 07/09/19 25 8:57 AM EST documented as of this encounter Care Teams Traffic Control Technician Relationship Specialty Start Date End Date Brea Maciel MD [address] [place] [phone] PCP - General Family Medicine 09/21/23 documented as of this encounter
--- OUTSIDE RECORDS SUMMARY | 2024-10-01 10:41 | XMS_ITS | Encounter Summary ---
Author Organization [employer] Address [address] [facility] [address] 7t [place] [address] Care Team Providers Care Risk Advisor Name Role Phone Brea Maciel MD Primary Care Provider [phone] Reason for Visit * Reason Onset Date Comments Reschedule 06/02/2024 Encounter Details Date Type Department Care Team ([facility] Contact Info) Description 06/02/2024 Telephone [facility] [address] [place] [address] Brea Maciel MD [address] [place] [phone] Reschedule Social History Tobacco Use Types Packs/Day [...] as of this encounter Care Teams Risk Advisor Relationship Specialty Start Date End Date Brea Maciel MD [address] [place] [phone] PCP - General Family Medicine 09/21/23 documented as of this encounter
--- OUTSIDE RECORDS SUMMARY | 2024-10-01 10:41 | XMS_ITS | Encounter Summary ---
Author Organization [employer] Address [address] [facility] 7t [place] [address] Care Team Providers Care Washcoat Wiper Name Role Phone Brea Maciel MD Primary Care Provider [phone] Encounter Details Date Type Department Care Team ([facility] st Contact Info) Description 05/07/2024 Orders Only [facility] [address] [place] [address] Provider, MD Hoa Social History Tobacco Use [...] documented as of this encounter Care Teams Washcoat Wiper Relationship Specialty Start Date End Date Brea Maciel MD [address] [place] [address] PCP - General Family Medicine 09/21/23 documented as of this encounter
--- OUTSIDE RECORDS SUMMARY | 2024-10-01 10:41 | XMS_ITS ---
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 Dysphagia 02/06/2024 Anxiety 12/24/2023 Depression 12/24/2023 Diabetes mellitus ([facility] V24, [facility] V28) Hyperlipidemia 12/24/2023 Hypertension 12/24/2023 Hypothyroidism 12/24/2023 Psoriasis 12/24/2023 Continuous leakage of urine 10/05/2023 Polyp of colon 10/05/2023 Renal failure 09/27/2023 Transaminitis 09/27/2023 Chronic midline low back pain without sciatica 0 08/15/2023 Hepatic steatosis 07/24/2023 Lightheadedness 03/01/2023 Stage 3a chronic kidney disease ([facility] V24, CM /[facility] V28) 02/12/2023 Cough 08/26/2019 Suspected COVID-19 virus infection 08/26/2019 Reactive depression 08/26/2019 Lower abdominal pain 08/26/2019 Stage 1 chronic kidney disease 03/05/2018 Vasovagal syncope 03/05/2018 Mixed hyperlipidemia 05/10/2017 Hypothyroidism (acquired) 04/10/2017 Prostate cancer ([facility] V24, [facility] V28) 11/24 Overview (04/18/2024): Last Assessment & [...] squamous cell carcin alexy of lower gingiva ([facility] V24, [facility] V28) Treatment Medications Current Day (Day 1 [...]
--- OUTSIDE RECORDS SUMMARY | 2024-10-01 10:41 | XMS_ITS | Encounter Summary ---
Author Organization [employer] Address [address] [facility] 7t [place] [address] Care Team Providers Care Restaurant Cashier Name Role Phone Brea Maciel MD Primary Care Provider [phone] Encounter Details Date Type Department Care Team ([facility] st Contact Info) Description 07/22/2024 Orders Only [facility] [address] [place] [address] Provider, MD Hoa Social History Tobacco Use [...] as of this encounter Care Teams Restaurant Cashier Relationship Specialty Start Date End Date Brea Maciel MD [address] [place] [phone] PCP - General Family Medicine 09/21/23 documented as of this encounter
--- OUTSIDE RECORDS SUMMARY | 2024-10-01 10:41 | XMS_ITS | Clinical Summary ---
Author Organization [employer] Address [address] [facility] 7t [place] [address] Care Team Providers Care Suture Winder Hand Name Role Phone Brea Maciel MD Primary Care Provider [phone] Allergies Active Allergy Reactions Criticality Noted Date [...] 200 each 11 4 Active Continuous Glucose Newspaper Delivery Driver (FreeStyle Marlen 2 [place]) device 1 Units 4 times daily. 1 [...] each 12 4 09/21/19 25 nystatin (Mycostatin) 178621 UNIT/ML suspension Take 1 mL (100,000 Units) by mouth 4 times daily for 15 days. 60 mL 5 09/04/19 25 Active Problems Problem Noted Date Diagnosed Date Keratoconjunctivitis sicca o f both eyes not due to Sjogren's syndrome 09/24/2024 Overview (09/24/2024): Followed by Dr. Jakob Harrell at [facility] discharge follow-up 04/16/2024 Assessment & [...] Colon Cancer Screening for recheck. Referring to Optometry Professor. Continuous leakage of urine 10/05/2023 Assessment & [...] in one month. Relevant Medications Continuous Glucose Newspaper Delivery Driver (Freestyle Marlen 2 [place]) device Continuous Glucose Newspaper Delivery Driver (Freestyle Marlen 2 Sensor) misc Insulin glargine [...] losartan and amlodipine, will send medication to [facility] pharmacy. Also he does not have a bp monitor at home, will send one, follow up with pcp in 2-3 months Resolved Problems Problem Noted Date Diagnosed Date Resolved Date Community acquired pneumonia 08/26/2019 09/21/2023 Encounters Date Type Department Care Team Description 09/29/2024 Orders Only GENERIC EXTERNAL DATA DEPARTMENT Provider, Generic External Data 08/19/2024 1:15 PM EDT Office Visit [facility] [address] [place] [address] Santosh Walker MD Mixed hyperlipidemia (Primary Dx); Hypothyroidism (acquired); Throat cancer (CMS/HCC); Essential hypertension; Type 2 diabetes mellitus without 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, with long-term current use of insulin (CMS/HCC) 08/19/2024 Travel 08/06/2024 Telephone [facility] [address] [place] [phone] Brea Maciel MD I 07/30/2024 Telephone [facility] [address] [place] [address] [phone] Brea Maciel MD Verbal Order 07/27/2024 Refill [facility] [address] [place] [address] Manjinder Tucker MD Psoriasis 07/22/2024 Orders Only [facility] [address] [place] [address] [phone] Hoa Noe MD 07/14/2024 Telephone [facility] [address] [place], [place] [phone] Brea Maciel MD Prior Authorization 07/09/2024 8:45 AM EST Office Visit [facility] [address] [place], [place] [phone] Santosh Walker MD Type 2 diabetes mellitus without 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, with long-term current use of insulin ([facility]) (Primary Dx); Chronic midline low back pain without sciatica; Dietary counseling; Exercise counseling; Mixed hyperlipidemia; Essential hypertension 07/09/2024 Travel from Last 3 Months Immunizations Name [...] years 1-dose series) 2016 COVID-19 Vaccine ( season) 2024 Influenza Vaccine (#1) 2024 02/24/2018 Hepatitis A Vaccines (2 of 2 - Risk 2-dose series) 04/06/2024 10/05/2023 Diabetes: Foot Exam 10/04/2024 10/05/2023, 10/05/2023, 10/05/2023, Additional history exists Diabetes: Hemoglobin A1C 11/19/2024 025, 07/09/2024, 04/16/2024, Additional history exists Alcohol/Substance Use Screening 04/16/2025 04/16/2024 Tobacco Screening 04/16/2025 04/16/2024 SDOH Screening 07/02/2025 07/02/2024 Depression Screening 07/09/2025 07/09/2024, 07/09/19 Lipid Panel 08/19/2025 08/19/2024, 09/24/2023 Diabetes: Urine Protein Screening 09/29/2025 09/29/2024, 10/01/2023, 02/12/2023 Dental X-Ray: Full Mouth 12/27/2026 12/27/2023 DTaP/Tdap/Td [...] Procedure Name Priority Date/Time Associated Diagnosis Comments CREATININE, SERUM Routine 09/29/2024 8:0 9 AM EDT UREA NITROGEN (BUN) Routine 09/29/2024 8 :09 AM EDT ELECTROLYTE PANEL Routine 09/29/2024 8:0 9 AM EDT PROTEIN CREATININE RATIO, URINE Routine 09/29/2024 8:05 AM EDT TSH W/REFLEX TO FT4 Routine 08/19/2024 2 [...] RADIOGRAPHIC IMAGE Routine 12/27/2023 9:00 AM EDT HEPATITIS C AB W/REFL TO HCV RNA, QN, PCR Routine 09/24/2023 8:28 AM EDT Encounter for health-related screening from Last 3 Months or Most Recently Relevant to Health Maintenance Results * Creatinine, Serum (09/29/2024 8:09 AM EDT) Creatinine, Serum 1.07 0.5 - 1.4 mg/dL [facility] Estimated Glomerular Filt Rate >60 [facility] Comment:Chronic Kidney Disea se: Estimated GFR < 60 mL/min/1.99g6Cessjk Kidney Disease: Estimated GFR < 15 mL/min/1.73m2 09/29/2024 8:09 AM EDT 09/29/2024 8:09 AM EDT us Generic External Data Provider LAB BLOOD ORDERAB LES Final Result [facility] [address] [place] [phone] * BUN (Blood Urea Nitrogen) (09/29/2024 8:09 AM EDT) Urea Nitrogen (BUN) 12 9 - 16 mg/dL [facility] 09/29/2024 8:09 AM EDT 09/29/2024 8:09 AM EDT Generic External Data Provider LAB BLOOD ORDERAB LES Final Result Performing Organization Address [facility] Co de Phone Number [facility] [address] [place] [phone] * Electrolyte Panel (09/29/2024 8:09 AM EDT) Pathologist [facility] Sodium 139 135 - 145 mmol/L [facility] Potassium 3.9 3.3 - 5.1 mmol/L [facility] Chloride 103 96 - 108 mmol/L [facility] Carbon Dioxide 26 22 - 29 mmol/L [facility] Anion Gap 14 12 - 20 [facility] 09/29/2024 8:09 AM EDT 09/29/2024 8:09 AM EDT Generic External Data Provider LAB BLOOD ORDERAB LES Final Result Performing Organization Address [facility] de Phone Number [facility] [address] [place] [phone] * (ABNORMAL) Protein Creatinine Ratio, Urine (09/29/2024 8:05 AM EDT) Creatinine, Urine 321.88 mg/dL [facility] Protein, Total, Random Urine 156(H) <12 mg/dL [facility] Protein/Creati nine Ratio, Ur 0.48(H) <0.2 [facility] Comment:The spot urine prote in:creatinine ratio may increase to 0.3during normal . 09/29/2024 8:05 AM EDT 09/29/2024 8:26 AM EDT Generic External Data Provider LAB URINE ORDERAB LES Final Result Performing Organization Address City/[facility]/ZIP Co de Phone Number [facility] [address] [place] [phone] [phone] * TSH W/Reflex to FT4 (08/19/2024 2:02 PM EDT) TSH reflex Free T4 2.47 0.32 - 4.0 uIU/mL [facility] Blood Venous blood specimen / Unknown 08/19/2024 2:02 PM EDT 08/19/2024 6:34 PM EDT Santosh Reyes MD LAB BLOOD ORDERABL ES Final Result Performing Organization Address [facility] Co de Phone Number [facility] [address] [place] [phone] * (ABNORMAL) Lipid Panel, Standard (08/19/2024 2:02 PM EDT) Triglycerides 137 <150 mg/dL [facility] Comment:Desirable Triglyceri de: less than 150 mg/dLBorderline High Triglyceride 150-199 mg/dLHigh Triglyceride: 200-499 mg/dLVery High Triglyceride: greater than or equal to 5OO mg/dL Cholesterol 180 <200 mg/dL [facility] Comment:Desirable Cholestero l: less than 200 mg/dLBorderline High Cholesterol: 200-239 mg/dLHigh Cholesterol: greater than 239 mg/dL LDL Cholesterol Calculated 106(H) <100 mg/dL [facility] Comment:Desirable LDL: less than 100 mg/dLNear Optimal/Above Optimal LDL: 110- 129 mg/dLBorderline High LDL: 130-159 mg/dLHigh LDL: 160-189 mg/dLVery High LDL: greater than or equal to 190 mg/dL HDL Cholesterol 47 >40 mg/dL [facility] Comment:Desirable HDL: great er than 40 mg/dL Note: This HDL assay may give artificially low results in patients with liver disease. Blood Venous blood specimen / Unknown 08/19/2024 2:02 PM EDT 08/19/2024 6:34 PM EDT us Santosh Reyes MD LAB BLOOD ORDERABL ES Final Result [facility] [address] [place] [phone] [phone] * (ABNORMAL) Comprehensive Metabolic Panel (08/19/2024 2:02 PM EDT) Sodium 141 135 - 145 mmol/L [facility] Potassium 3.8 3.3 - 5.1 mmol/L [facility] Chloride 107 96 - 108 mmol/L [facility] Carbon Dioxide 26 22 - 29 mmol/L [facility] Anion Gap 12 12 - 20 [facility] Urea Nitrogen (BUN) 15 9 - 16 mg/dL [facility] Creatinine, Serum 0.97 0.5 - 1.4 mg/dL [facility] Estimated Glomerular Filt Rate >60 [facility] Comment:Chronic Kidney Disea se: Estimated GFR < 60 mL/min/1.67b2[place] Kidney Disease: Estimated GFR < 15 mL/min/1.73m2 Glucose 128(H) 60 - 115 mg/dL [facility] Calcium 9.5 8.4 - 10.2 mg/dL [facility] Bilirubin, Total 0.3 0.0 - 1.0 mg/dL [facility] Aspartate Amino Transferase 57(H) 5 - 37 U/L [facility] Alanine Aminotransferase 55(H) 0 - 40 U/L [facility] Total Protein 7.9 6.5 - 8.0 g/dL [facility] Albumin Level 3.8 3.5 - 5.0 g/dL [facility] Alkaline Phosphatase 169(H) 39 - 117 U/L [facility] Blood Venous blood specimen / Unknown 08/19/2024 2:02 PM EDT 08/19/2024 6:34 PM EDT us Santosh Reyes MD LAB BLOOD ORDERABL ES Final Result [facility] [address] [place] [phone] * (ABNORMAL) POCT HGB A1C (08/19/2024 1:44 PM EDT) Only the most recent of2 resultswithin the time period is included. Hemoglobin A1C 7.1(A) 4.0 - 6.0 % QC Media Lot # [id number] Lot# Expiration Date Blood 08/19/2024 1:44 PM EDT Result [facility] Santosh Reyes MD POINT OF CARE TEST ENTER/EDIT ORDERABLES Final Result * POCT Glucose (08/19/2024 1:43 PM EDT) Only the most recent of2 resultswithin the time period is included. Glucose Blood, POC 172 60 - 200 mg/dL QC Media Lot # [id number] Lot# Expiration Date [id number] Blood Capillary blood specimen / Unknown 08/19/2024 1:43 PM EDT Result [facility] Santosh Reyes MD POINT OF CARE TEST ENTER/EDIT ORDERABLES Final Result * ECG 12 lead (07/19/2024 12:59 PM EST) Hoa Noe MD ECG ORDERABLES Final Res ult * Hepatitis C Antibody with Reflex to HCV, RNA, Quantitative, Real-Time PCR (09/24/2023 8:28 AM EDT) Hepatitis C Antibody Nonreactive Nonreactive [facility] Comment:Antibodies to HCV no t detected; does not exclude early acuteHCV infection. Blood Venous blood specimen / Unknown 09/24/2023 8:28 AM EDT 09/24/2023 2:45 PM EDT Brea Maciel MD LAB BLOOD ORDERABLES Final Re sult [facility] [address] [place] [phone] from Last 3 Months or Most Recently Relevant to Health Maintenance Insurance [facility] [employer] (HMO D-SNP) [employer] [place] [id number] DENTAL [facility] Care Teams Suture Winder Hand Relationship Specialty Start Date End Date Brea Maciel MD [address] [place] [phone] PCP - General Family Medicine 09/21/23
--- OUTSIDE RECORDS SUMMARY | 2024-10-01 10:41 | XMS_ITS | Encounter Summary ---
Author Organization [employer] Address [address] [facility] 7t [place] [address] Care Team Providers Care Veterinary Practitioner Name Role Phone Brea Maciel MD Primary Care Provider [phone] Encounter Details Date Type Department Care Team ([facility] st Contact Info) Description 09/29/2024 Orders Only GENERIC EXTERNAL DATA DEPARTMENT Provider, Generic External Data Social History Tobacco Use Types Packs/Day Years [...] RATIO, URINE Routine 09/29/2024 8:05 AM EDT documented in this encounter Results * Creatinine, Serum (09/29/2024 8:09 AM EDT) Creatinine, Serum 1.07 0.5 - 1.4 mg/dL [facility] Estimated Glomerular Filt Rate >60 [facility] Comment:Chronic Kidney Disea se: Estimated GFR < 60 mL/min/1.88i1Efysof Kidney Disease: Estimated GFR < 15 mL/min/1.73m2 09/29/2024 8:09 AM EDT 09/29/2024 8:09 AM EDT us Generic External Data Provider LAB BLOOD ORDERAB LES Final Result [facility] [address] [place] [phone] * BUN (Blood Urea Nitrogen) (09/29/2024 8:09 AM EDT) Urea Nitrogen (BUN) 12 9 - 16 mg/dL [facility] 09/29/2024 8:09 AM EDT 09/29/2024 8:09 AM EDT Generic External Data Provider LAB BLOOD ORDERAB LES Final Result Performing Organization Address [facility] de Phone Number [facility] [address] [place] [phone] * Electrolyte Panel (09/29/2024 8:09 AM EDT) Sodium 139 135 - 145 mmol/L [facility] Potassium 3.9 3.3 - 5.1 mmol/L [facility] Chloride 103 96 - 108 mmol/L [facility] Carbon Dioxide 26 22 - 29 mmol/L [facility] Anion Gap 14 12 - 20 [facility] 09/29/2024 8:09 AM EDT 09/29/2024 8:09 AM EDT Generic External Data Provider LAB BLOOD ORDERAB LES Final Result Performing Organization Address [facility] Phone Number [facility] [address] [place] [phone] * (ABNORMAL) Protein Creatinine Ratio, Urine (09/29/2024 8:05 AM EDT) Creatinine, Urine 321.88 mg/dL [facility] Protein, Total, Random Urine 156(H) <12 mg/dL [facility] Protein/Creati nine Ratio, Ur 0.48(H) <0.2 [facility] Comment:The spot urine prote in:creatinine ratio may increase to 0.3during normal . 09/29/2024 8:05 AM EDT 09/29/2024 8:26 AM EDT us Generic External Data Provider LAB URINE ORDERAB LES Final Result [facility] [address] [place] [address] [phone] documented in this encounter Visit Diagnoses Not on filedocumented in this encounter Additional Health Concerns Assessment Noted Time PHQ-9 Depression Total Score: 0 07/09/19 25 8:57 AM EST documented as of this encounter Care Teams Veterinary Practitioner Relationship Specialty Start Date End Date Brea Maciel MD [address] [place] [address] PCP - General Family Medicine 09/21/23 documented as of this encounter
--- OUTSIDE RECORDS SUMMARY | 2024-10-01 10:41 | XMS_ITS | Clinical Summary ---
Author Organization [facility] Address [address] [place] [address] Care Team Providers Care Filling Operator Name Role Phone Pcp, Chester Akbar MD Primary Care Provider [phone] Allergies Active Allergy Reactions Criticality Noted Date [...] Recent Progress Patient-Stated? Author Carry glucose tablets [facility] Kimberlyn Coyle, RN Take Novolog 5-10 minutes before each meal [facility] Kimberlyn Coyle, RN Schedule eye exam [facility] Kimberlyn Coyle, RN Check BG TID before breakfast, lunch and dinner and keep log [facility] Kimberlyn Coyle, RN Care Teams Filling Operator Relationship Specialty Start Date End Date Pcp, Chester Akbar MD [address] [place] [address] PCP - General Water Mangle Tender 08/17/21
--- OUTSIDE RECORDS SUMMARY | 2024-10-01 10:41 | XMS_ITS | Clinical Summary ---
Author Organization [facility] Address [address] [place] [address] Care Team Providers Care Nurse Prn Name Role Phone LennieLoriefrances ESTRADA Primary Care Provider [phone] Apple Villatoro DO Unavailable [phone] Allergies Active Allergy Reactions Criticality Noted [...] Admin Instructions . Active Continuous Blood Gluc Seafood Process Worker (FreeStyle Marlen 2 [place]) Device 1 PER YEAR Active Continuous Blood Gluc Sensor (FreeStyle Marlen 2 Sensor) [facility] See Admin Instructions . 10/28/2021 Active ibuprofen [...] Comprehensive Metabolic Panel (02/28/2023 1:22 PM EDT) [facility] Glucose 409(HH) 65 - 99 mg/dL 02/28/2023 2:17 PM EDT [facility] Comment:Fasting: <100 mg/dL, Non-Fasting: <200 mg/dL (ADA 2005) Blood Urea Nitrogen (BUN) 42(H) 8 - 21 mg/dL 02/28/2023 2:17 PM [facility] Creatinine 1.5(H) 0.5 - 1.3 mg/dL 02/28/2023 2:17 PM [facility] eGFR 51(L) >59 02/28/2023 2:17 PM [facility] Comment:CKD-EPI (2020) in mL /min/1.73 sq meters. Sodium 133(L) 136 - 145 mmol/L 02/28/2023 2:17 PM [facility] Potassium 3.7 3.4 - 5.3 mmol/L 02/28/2023 2:17 PM [facility] Chloride 95(L) 98 - 107 mmol/L 02/28/2023 2:17 PM [facility] CO2 25 22 - 33 mmol/L 02/28/2023 2:17 PM [facility] Calcium 9.7 8.7 - 10.5 mg/dL 02/28/2023 2:17 PM [facility] Alkaline Phosphatase 105 45 - 128 U/L 02/28/2023 2:17 PM [facility] Aspartate Aminotrans (AST) 40 10 - 55 U/L 02/28/2023 2:17 PM [facility] Alanine Aminotrans (ALT) 59(H) 10 - 55 U/L 02/28/2023 2:17 PM [facility] Bilirubin, Total 0.5 0.2 - 1.0 mg/dL 02/28/2023 2:17 PM [facility] Protein, Total 7.7 6.3 - 8.3 g/dL 02/28/2023 2:17 PM [facility] Albumin 4.2 3.4 - 4.8 g/dL 02/28/2023 2:17 PM [facility] BUN/Creatinine Ratio 28(H) 10.0 - 25.0 Ratio 02/28/2023 2:17 PM [facility] Globulin 3.5 1.5 - 3.9 g/dL 02/28/2023 2:17 PM [facility] Albumin/Globulin Ratio 1.2 1.0 - 3.0 Ratio 02/28/2023 2:17 PM [facility] Anion Gap 13 7 - 17 02/28/2023 2:17 PM EDT [facility] Blood specimen (specimen) (Plasma/Serum) 02/28/2023 1:22 PM EDT 02/28/2023 1:48 PM EDT Fela [facility]TRE LAB BLOOD ORDERABLES Final Re sult HOSPITAL LAB See Below [facility] [address] [place] [address] * POCT Microalbumin (02/12/2023 10:37 AM EDT) Microalbumin, POC 10.0 MG/L Creatinine Urine, POC 100.0 MG/DL Microalbumin/Cr eat Ratio, POC <30 MG/G Lot Number [id number] Block Cutter Pass Pass Urine 02/12/2023 10:3 7 AM EDT Amro Velasco MD POINT OF CARE TEST ORDERABLES [...] EDT 03/06/2018 7:56 AM EDT Radha Carter DIRECTOR OF MARKET ANALYSIS LAB BLOOD ORDERABLES Final Res ult HOSPITAL LAB from Last 3 Months or Most Recently Relevant to Health Maintenance [place] [place] [phone] [facility] MEDICARE PART A & B Advance Directives [...] Decision Thoroughly Discussed with: Patient Care Teams Nurse Prn Relationship Specialty Start Date End Date Laura Hogue APRN [address] [place] [phone] PCP - General Family Medicine 09/04/19 Apple Villatoro DO [address] [place] [phone] Interpretive Naturalist Cardiovascular Disease 04/12/23
--- OUTSIDE RECORDS SUMMARY | 2024-10-01 10:41 | XMS_ITS | Clinical Summary ---
Author Organization [facility] Address [address] [place] [address] Care Team Providers Care Health Unit Coordinator Name Role Phone Charis Liz Primary Care Provider [phone] William Kaplan MD Unavailable Allergies Active Allergy [...] Information: ?Site ID: AMD ?Name: [facility] ?Address: [address] [place] [address] ?Director: Roly Huerta M.D.,PhD us Robert Martinez MD [facility] Lin l Result [facility] , [place] from Last 3 Months or Most Recently Relevant to Health Maintenance Insurance [address] [place], [place] [id number] MEDICAID [id number] MEDICARE PART A & B Care Teams Health Unit Coordinator Relationship Specialty Start Date End Date Charis Liz PA [address] [place] [address] PCP - General Internal Medicine 12/11/18 William Kaplan MD [address] [place] [address] PCP - Insurance Payer PCP 02/02/23
--- OUTSIDE RECORDS SUMMARY | 2024-10-01 10:41 | XMS_ITS | Encounter Summary ---
Author Organization [employer] Address [address] 7[address] [place] [address] Care Team Providers Care Leather Piece Inspector Name Role Phone Brea Maciel MD Primary Care Provider [phone] Reason for Visit * Reason Onset Date Comments Durable Medical Equipment 04/11/2024 Encounter Details Date Type Department Care Team ([facility] Contact Info) Description 04/11/2024 Telephone [facility] [address] [place] [address] Brea Maciel MD [address] [place] [phone] Durable Medical Equipment Social History Tobacco Use [...] - 04/11/2024 3:09 PM EST Tc from [facility] ([facility]) requesting DME supply for pt Shower Chair, Race toilet seat with hand rest, walker with seat . Callback number [phone] documented in this encounter Plan of Treatment Not on file documented as of this encounter Visit Diagnoses Not on filedocumented in this encounter Additional Health Concerns Assessment Noted Time PHQ-9 Depression Total Score: 10 024 11:21 AM EDT documented as of this encounter Care Teams Leather Piece Inspector Relationship Specialty Start Date End Date Brea Maciel MD [address] [place] [address] PCP - General Family Medicine 09/21/23 documented as of this encounter
--- OUTSIDE RECORDS SUMMARY | 2024-10-01 10:41 | XMS_ITS | Encounter Summary ---
Author Organization [facility] Address [address] [place] [address] Care Team Providers Care Clinical Nursing Manager Name Role Phone Jaylene Kong MD Primary Care Provider [phone] Charis Liz PA-C Primary Care Provider [phone] Laura Hogue APRN Primary Care Provider [phone] Apple Villatoro DO Unavailable [phone] Encounter Details Date Type Department Care Team (Late st Contact Info) Description 11/25/2015 Scanned Document [address] [phone] Provider, Generic Social History Tobacco Use Types [...] documented as of this encounter Care Teams Clinical Nursing Manager Relationship Specialty Start Date End Date Jaylene Kong MD PCP - General Internal Medicine 09/28/15 04/04/17 Charis Liz PA-C PCP - General 04/05/17 09/03/19 Laura Hogue APRN [address] [place] [address] PCP - General Family Medicine 09/04/19 Apple Villatoro DO [address] [place] [address] Slot Machine Repairer Cardiovascular Disease 04/12/23 documented as of this encounter
--- OUTSIDE RECORDS SUMMARY | 2024-10-01 10:41 | XMS_ITS | Clinical Summary ---
Author Organization [facility] Address [address] [place] [address] Phone Care Team Providers Care Baking Assistant Name Role Phone Brea Maciel MD Primary Care Provider [phone] Allergies No known active allergies Medications dulaglutide [...] throat 4 times daily. 4 Active BD Mdaeleine 2nd Gen Pen Needle 32 gauge x [...] (04/18/2024): 69 y.o. 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 Dysphagia 02/06/2024 Anxiety 12/24/2023 Depression 12/24/2023 Diabetes mellitus (CMS/HCC V24, CMS/HCC V28) Hyperlipidemia 12/24/2023 Hypertension 12/24/2023 Hypothyroidism 12/24/2023 Psoriasis 12/24/2023 Continuous leakage of urine 10/05/2023 Polyp of colon 10/05/2023 Renal failure 09/27/2023 Transaminitis 09/27/2023 Chronic midline low back pain without sciatica 0 08/15/2023 Hepatic steatosis 07/24/2023 Lightheadedness 03/01/2023 Stage 3a chronic kidney disease ([facility] V24, [facility] V28) 02/12/2023 Cough 08/26/2019 Suspected COVID-19 virus infection 08/26/2019 Reactive depression 08/26/2019 Lower abdominal pain 08/26/2019 Stage 1 chronic kidney disease 03/05/2018 Vasovagal syncope 03/05/2018 Mixed hyperlipidemia 05/10/2017 Hypothyroidism (acquired) 04/10/2017 Prostate cancer ([place] V24, [facility] V28) 11/24 Overview (04/18/2024): Last Assessment & Plan: Referral to Urologist for further monitoring and treatment. Erectile dysfunction following radical prostatec jonathan 11/25/2015 Obstructive sleep apnea syndrome 08/18/2015 Snoring 06/16/2015 Essential hypertension 06/16/2015 Fatigue due to sleep pattern disturbance 016 Resolved Problems Problem Noted Date Diagnosed Date Resolved Date Oral cancer ([facility] V24, [facility] V28) 04/17/2024 04/24/2024 Encounters Date Type Department Care Team Description 08/27/2024 11:58 AM EDT - 08/27/2024 11:59 PM EDT Hospital Encounter [facility] Interventional Radiology [address] [place] [phone] Primary squamous cell carcinoma of lower gingiva ([place] V24, [facility] V28) Discharge Disposition: Home or Self Care 08/18/2024 10:15 AM EDT Evaluation [facility] Speech Therapy [address] [phone] Vaishali Dolan, STEAM GIGGER Dysphagia, oropharyngeal (Primary Dx); Malignant neoplasm of lower gum ([place] V24, [facility] V28) 08/18/2024 Plan of Care Documentation [facility] Speech Therapy [address] [phone] 08/12/[address] [facility] Hematology Oncology [address] [place] [phone] Myrna Pereyra MA Peg Tube Removal 08/11/2024 1:30 PM EDT Office Visit [facility] Hematology Oncology [address] [place] [phone] Tawana Chang MD 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, CMS/HCC V28) (Primary Dx) 08/08/[address] [facility] Radiation Oncology [address] [place] [phone] Micaela Sandhu NP 08/06/2024 12:49 PM EST - 08/06/2024 11:59 PM EST Hospital Encounter [facility] Radiation Oncology [address] [place] [phone] Micaela Sandhu, QUAN 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, CMS/HCC V28) (Primary Dx) Discharge Disposition: Home or Self Care 07/19/2024 12:40 PM EST - 07/19/2024 3:[address] [facility] Emergency [address] [place] [phone] COVID-19 (Primary Dx) Discharge Disposition: Home or Self Care 07/11/2024 1:50 PM EST - 07/11/2024 11:59 PM EST Hospital Encounter [facility] Radiation Oncology [address] [place] [phone] Leyla Flanagan MD 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, CMS/HCC V28) (Primary Dx) Discharge Disposition: Home or Self Care 07/11/2024 1:12 PM EST - 07/11/2024 11:59 PM EST Hospital Encounter [facility] Radiation Oncology [address] [place] [phone] Discharge Disposition: Home or Self Care 07/10/2024 11:10 AM EST - 07/10/2024 11:59 PM EST Hospital Encounter [facility] Radiation Oncology [address] [place] [phone] Discharge Disposition: Home or Self Care 07/09/2024 1:22 PM EST - 07/09/2024 11:59 PM EST Hospital Encounter [facility] Radiation Oncology [address] [place] [phone] Discharge Disposition: Home or Self Care 07/08/2024 1:09 PM EST - 07/08/2024 11:59 PM EST Hospital Encounter [facility] Radiation Oncology [address] [place] [phone] Discharge Disposition: Home or Self Care 07/08/2024 [facility] Radiation Oncology [address] [place] [phone] Brea Plunkett RN 07/07/2024 12:53 PM EST - 07/07/2024 11:59 PM EST Hospital Encounter [facility] Radiation Oncology [address] [place] [phone] Discharge Disposition: Home or Self Care 07/04/2024 1:50 PM EST - 07/04/2024 11:59 PM EST Hospital Encounter [facility] Radiation Oncology [address] [place] [phone] Leyla Flanagan MD 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, CMS/HCC V28) (Primary Dx) Discharge Disposition: Home or Self Care 07/04/2024 1:00 PM EST - 07/04/2024 11:59 PM EST Hospital Encounter [facility] Radiation Oncology [address] [place] [phone] Discharge Disposition: Home or Self Care 07/03/2024 12:51 PM EST - 07/03/2024 11:59 PM EST Hospital Encounter [facility] Radiation Oncology [address] [place] [phone] Discharge Disposition: Home or Self Care from [...] History Date Comments Hypertension DX:Hypertension Diabetes mellitus ([facility] V 24, [facility] V28) DX:Diabetes mellitus (HCC) Obstructive sleep apnea syndrome 08/18/2015 DX:Obstructive sleep apnea syndrome Arthritis DX:Arthritis Depression DX:Depression Chronic kidney disease DX:Chroni c kidney disease Prostate cancer ([facility] V24 , [facility] V28) DX:Prostate cancer (HCC) Primary insomnia 04/16/2024 [...] Info) Description 10/06/2024 12:30 PM EDT Treatment [facility] Occupational Therapy [address] [phone] Whitley Richey, OTR/L 10/06/2024 2:00 PM EDT Treatment [facility] Speech Therapy [address] [phone] Vaishali Dolan, STEAM GIGGER 02/11/2025 1:30 PM EDT Office Visit [facility] Hematology Oncology [address] [place] [phone] Tawana Chang MD [address] [place] [address] 02/17/2025 2:[address] [facility] Radiation Oncology [address] [phone] Micaela Sandhu NP [address] [place], [place] [phone] Health Maintenance Due Date Last Done Comments [...] Type Associated Problems Recent Progress Patient-Stated? Author STEAM GIGGER LTG General No Vaishali Dolan, STEAM GIGGER Note: Pt will consume least restrictive PO diet without changes to medical or respiratory status to maintain adequate oral nutrition hydration STEAM GIGGER STGs General No Vaishali Dolan, STEAM GIGGER Note: Pt will consume recommended diet textures [...] TREATMENT SUMMARY Routine 07/03/2024 1:49 PM EST from Last 3 Months Results * ECG-Annotated (07/21/2024) us Provider Onbase MD ECG ORDERABLES Final Result * (ABNORMAL) POCT Glucose, blood (07/19/2024 12:03 PM EST) [facility] Glucose POCT 171(H) 70 - 100 mg/dL 07/19/2024 12:07 PM EST [facility] Blood Capillary blood specimen / Unknown 07/19/2024 12:03 PM EST 07/19/2024 12:08 PM EST us Generic Provider Poct LAB POINT OF CARE TEST DOCKED DEVICE UNSOLICITED RESULTS Final Result [facility] [address] [place] [address], * (ABNORMAL) CBC auto differential (07/19/2024 12:00 PM EST) [facility] WBC 5.9 4.8 - 10.8 K/mcL LAB HEMETOLOGY METHOD 07/19/2024 12:32 PM [facility] RBC 5.10 4.50 - 5.50 M/mcL LAB HEMETOLOGY METHOD 07/19/2024 12:32 PM [facility] Hemoglobin 11.6(L) 13.5 - 17.5 g/dL LAB HEMETOLOGY METHOD 07/19/2024 12:32 PM [facility] Hematocrit 36.7(L) 42.0 - 54.0 % LAB HEMETOLOGY METHOD 07/19/2024 12:32 PM [facility] MCV 72.0(L) 79.0 - 98.0 FL LAB HEMETOLOGY METHOD 07/19/2024 12:32 PM [facility] MCH 22.7(L) 27.0 - 32.0 pcg LAB HEMETOLOGY METHOD 07/19/2024 12:32 PM [facility] MCHC 31.6(L) 32.0 - 37.0 g/dL LAB HEMETOLOGY METHOD 07/19/2024 12:32 PM [facility] RDW 19.5(H) 11.0 - 15.0 % LAB HEMETOLOGY METHOD 07/19/2024 12:32 PM [facility] Platelets 175 130 - 400 K/mcL LAB HEMETOLOGY METHOD 07/19/2024 12:32 PM [facility] MPV 10.0 7.0 - 11.0 FL LAB HEMETOLOGY METHOD 07/19/2024 12:32 PM [facility] NRBC 0.0 <1.0 % LAB HEMETOLOGY METHOD 07/19/2024 12:32 PM [facility] NRBC Absolute 0.00 <0.10 K/mcL LAB HEMETOLOGY METHOD 07/19/2024 12:32 PM [facility] Neutrophils Relative 84.0 % LAB HEMETOLOGY METHOD 07/19/2024 12:32 PM [facility] Lymphocytes Relative 3.9 % LAB HEMETOLOGY METHOD 07/19/2024 12:32 PM [facility] Monocytes Relative 11.0 % LAB HEMETOLOGY METHOD 07/19/2024 12:32 PM [facility] Eosinophils Relative 0.3 % LAB HEMETOLOGY METHOD 07/19/2024 12:32 PM [facility] Basophils Relative 0.3 % LAB HEMETOLOGY METHOD 07/19/2024 12:32 PM [facility] Immature Granulocytes Relative 0.5 % LAB HEMETOLOGY METHOD 07/19/2024 12:32 PM [facility] Neutrophils Absolute 4.97 1.50 - 7.00 K/mcL LAB HEMETOLOGY METHOD 07/19/2024 12:32 PM [facility] Lymphocytes Absolute 0.23(L) 1.00 - 5.00 K/mcL LAB HEMETOLOGY METHOD 07/19/2024 12:32 PM [facility] Monocytes Absolute 0.65 0.20 - 1.00 K/mcL LAB HEMETOLOGY METHOD 07/19/2024 12:32 PM EST [facility] Eosinophils Absolute 0.02 0.00 - 0.50 K/[facility] HEMETOLOGY METHOD 07/19/2024 12:32 PM EST [facility] Basophils Absolute 0.02 0.00 - 0.20 K/[facility] HEMETOLOGY METHOD 07/19/2024 12:32 PM EST [facility] Immature Granulocytes Absolute 0.03 0.00 - 0.03 K/[facility] HEMETOLOGY METHOD 07/19/2024 12:32 PM [facility] Blood Venous blood specimen / Unknown Venipuncture / Unknown 07/19/2024 12:00 PM EST 07/19/2024 12:09 PM EST us Enrique Greenwood MD LAB BLOOD ORDERABLES Final Result [facility] [address] [place] [address], * (ABNORMAL) Basic metabolic panel (07/19/2024 12:00 PM EST) Sodium 134 133 - 145 mmol/L LAB CHEMISTRY METHOD 07/19/2024 12:34 PM [facility] Potassium 4.1 3.5 - 5.5 mmol/L LAB CHEMISTRY METHOD 07/19/2024 12:34 PM [facility] Chloride 102 96 - 110 mmol/L LAB CHEMISTRY METHOD 07/19/2024 12:34 PM [facility] CO2 27 21 - 32 mmol/L LAB CHEMISTRY METHOD 07/19/2024 12:34 PM [facility] Anion Gap 5 3 - 11 LAB CHEMISTRY METHOD 07/19/2024 12:34 PM [facility] Glucose 180(H) 70 - 100 mg/dL LAB CHEMISTRY METHOD 07/19/2024 12:34 PM [facility] BUN 14 5 - 25 mg/dL LAB CHEMISTRY METHOD 07/19/2024 12:34 PM EST [facility] Creatinine 1.13 0.70 - 1.30 mg/dL LAB CHEMISTRY METHOD 07/19/2024 12:34 PM EST [facility] eGFR 71 >=60 mL/min/1. 73m2 LAB CHEMISTRY METHOD 07/19/2024 12:34 PM EST [facility] Comment:Calculation based on the??Chronic Kidney Disease Epidemiology Collaboration (CKD-EPI) equation refit??without adjustment for race. BUN/Creatinine Ratio 12.4 LAB CHEMISTRY METHOD 07/19/2024 12:34 PM EST [facility] Calcium 9.0 8.5 - 10.5 mg/dL LAB CHEMISTRY METHOD 07/19/2024 12:34 PM EST [facility] Blood Venous blood specimen / Unknown Venipuncture / Unknown 07/19/2024 12:00 PM EST 07/19/2024 12:09 PM EST us Enrique Greenwood MD LAB BLOOD ORDERABLES Final Result [facility] [address] [place] [address], * ECG 12 lead (07/19/2024 11:50 AM EST) Ventricular Rate ECG 96 BPM GEMUSE Atrial Rate 96 BPM GEMUSE P-R Interval 130 ms GEMUSE QRS Duration 88 ms GEMUSE Q-T Interval 350 ms GEMUSE QTc 442 ms GEMUSE P Wave [place] 63 degrees GEMUSE R [place] 54 degrees GEMUSE T [place] 23 degrees GEMUSE ECG Interpretation Normal sinus [...] Signed Date: 07/19/2024 11:36 ET Workstation ID: [id number] Transcribed By: Self Edit Transcribed Date: 07/19/2024 [...] Signed Date: 07/19/2024 11:36 ET Workstation ID: [id number] Transcribed By: Self Edit Transcribed Date: 07/19/2024 11:33 ET us Enrique Greenwood MD IMG XR PROCEDURES Final Res ult * (ABNORMAL) Respiratory virus panel molecular study (07/19/2024 11:08 AM EST) Pathologist [facility] Adenovirus Detection by PCR Not Detected Not Detected LAB MICROBIOLOGY METHOD 07/19/2024 12:08 PM [facility] Influenza A PCR Not Detected Not Detected LAB MICROBIOLOGY METHOD 07/19/2024 12:08 PM [facility] Influenza B PCR Not Detected Not Detected LAB MICROBIOLOGY METHOD 07/19/2024 12:08 PM [facility] Coronavirus 229E Not Detected Not Detected LAB MICROBIOLOGY METHOD 07/19/2024 12:08 PM [facility] Coronavirus HKU1 Not Detected Not Detected LAB MICROBIOLOGY METHOD 07/19/2024 12:08 PM [facility] Coronavirus OC43 Not Detected Not Detected LAB MICROBIOLOGY METHOD 07/19/2024 12:08 PM [facility] Coronavirus NL63 Not Detected Not Detected LAB MICROBIOLOGY METHOD 07/19/2024 12:08 PM [facility] Parainfluenza Virus 1 Not Detected Not Detected LAB MICROBIOLOGY METHOD 07/19/2024 12:08 PM [facility] Parainfluenza Virus 2 Not Detected Not Detected LAB MICROBIOLOGY METHOD 07/19/2024 12:08 PM [facility] Parainfluenza Virus 3 Not Detected Not Detected LAB MICROBIOLOGY METHOD 07/19/2024 12:08 PM [facility] Parainfluenza Virus 4 Not Detected Not Detected LAB MICROBIOLOGY METHOD 07/19/2024 12:08 PM [facility] RSV PCR Not Detected Not Detected LAB MICROBIOLOGY METHOD 07/19/2024 12:08 PM [facility] Human Metapneumovirus A and B Not Detected Not Detected LAB MICROBIOLOGY METHOD 07/19/2024 12:08 PM [facility] Rhinovirus/Entero virus Not Detected Not Detected LAB MICROBIOLOGY METHOD 07/19/2024 12:08 PM [facility] Bordetella pertussis Not Detected Not Detected LAB MICROBIOLOGY METHOD 07/19/2024 12:08 PM EST [facility] Bordetella parapertussis Not Detected Not Detected LAB MICROBIOLOGY METHOD 07/19/2024 12:08 PM [facility] Mycoplasma pneumo by PCR Not Detected Not Detected LAB MICROBIOLOGY METHOD 07/19/2024 12:08 PM [facility] Chlamydia pneumoniae Not Detected Not Detected LAB MICROBIOLOGY METHOD 07/19/2024 12:08 PM [facility] SARS COV-2 Detected(A ) Not Detected LAB MICROBIOLOGY METHOD 07/19/2024 12:08 PM [facility] Swab Both anterior nares / Unknown Non-blood Collection / Unknown 07/19/2024 11:08 AM EST 07/19/2024 11:14 AM EST [facility] - 07/19/2024 12:08 PM EST Testing was performed using the Path Respiratory Pathogen PCR Assay. All results must [...] Result [facility] [address] [place] [address], * Rad Onc Msq Treatment Summary (07/11/2024 [...] 1:49 PM EST Physician Radiation Oncology RADIATION ONCJOHAN GY ORDERABLES Final Result [facility]COL[facility] from Last 3 Months Insurance [address] [place] [address] [facility] MEDICARE Member Subscriber Plan / Payer (Ef fective 2019-Present) Name:Feliciano Santana Relation to Subscriber:Self Name:Feliciano Santana Payer ID:[id number] Group ID:[id number] Type:Not on file Address: [address] [place] [address] [facility] Member Subscriber Plan / Payer (Ef fective 2023-Present) Name:Feliciano Santana Relation to Subscriber:Self Name:Feliciano Santana Payer ID:[id number] Group ID:[id number] Type:Not on file Address: [address] [place] [address] Care Teams Baking Assistant Relationship Specialty Start Date End Date Brea Maciel MD [address] [place] [address] PCP - General 10/08/23
--- OUTSIDE RECORDS SUMMARY | 2024-10-01 10:41 | XMS_ITS | Encounter Summary ---
Author Organization [employer] Address [address] [facility] 7t [place] [address] Care Team Providers Care Touring Production Manager Name Role Phone Brea Maciel MD Primary Care Provider [phone] Reason for Visit * Reason Comments Med Refill Encounter Details Date Type Department Care Team ([facility] Contact Info) Description 05/01/2024 Refill [facility] MED & PEDS [address] [place], [place] [phone] Manjinder Tucker MD [address] [place] [address] Psoriasis Social History Tobacco Use Types Packs/Day [...] documented as of this encounter Care Teams Touring Production Manager Relationship Specialty Start Date End Date Brea Maciel MD [address] [place] [address] PCP - General Family Medicine 09/21/23 documented as of this encounter
--- OUTSIDE RECORDS SUMMARY | 2024-10-01 10:41 | XMS_ITS | Encounter Summary ---
Author Organization [facility] Address [address] [place] [address] Care Team Providers Care Fork Lift Mechanic Name Role Phone Laura Hogue APRN Primary Care Provider [phone] Apple Villatoro DO Unavailable [phone] Encounter Details Date Type Department Care Team (Late st Contact Info) Description 03/01/2020 Scanned Document [facility] Colorectal Surgery [place] [address] [place] [address] Laura Hogue APRN [address] [place], [place] [phone] Social History Tobacco Use Types Packs/Day Years [...] documented as of this encounter Care Teams Fork Lift Mechanic Relationship Specialty Start Date End Date Laura Hogue APRN [address] [place] [address] PCP - General Family Medicine 09/04/19 Apple Villatoro DO [address] [place] [address] [employer] Cardiovascular Disease 04/12/23 documented as of this encounter
--- OUTSIDE RECORDS SUMMARY | 2024-10-01 10:41 | XMS_ITS | Encounter Summary ---
Author Organization [employer] Address [address] [facility] 7t [place] [address] Care Team Providers Care Sonoscope Operator Name Role Phone Brea Maciel MD Primary Care Provider [phone] Reason for Visit * Reason Comments Med Refill Encounter Details Date Type Department Care Team ([facility] Contact Info) Description 07/27/[address] [facility] MED & PEDS [address] [place], [place] [phone] Manjinder Tucker MD [address] [place] [address] Psoriasis Social History Tobacco Use Types Packs/Day [...] documented as of this encounter Care Teams Sonoscope Operator Relationship Specialty Start Date End Date Brea Maciel MD [address] [place] [address] PCP - General Family Medicine 09/21/23 documented as of this encounter
--- OUTSIDE RECORDS SUMMARY | 2024-10-01 10:42 | XMS_ITS | Encounter Summary ---
Author Organization [employer] Address [address] [place] [address] Care Team Providers Care Diamond Sizer And Sorter Name Role Phone Brea Maciel MD Primary Care Provider [phone] Reason for Visit * Reason Onset Date Comments medication 01/10/2024 Encounter Details Date Type Department Care Team ([facility] st Contact Info) Description 01/10/2024 Telephone [facility] [address] [place] [address] Enrique Soria, DMD [address] [place] [address] medication Social History Tobacco Use Types Packs/Day [...] Meredith Sánchez - 01/10/2024 10:17 AM EDT CO DOCTOR WADE ADDISON Feliciano Coronado is a 68 y.o. year old male.CALLED TODAY SAYING Stacy DIGINOSE HIM WITH CANCER .YESTERDAY AND HIS IN A LOT OF PAIN.CAN YOU SEND HIM SOMETHING FOR PAIN SHARIF Kumar . documented in this encounter Plan of Treatment Not on file documented as of this encounter Visit Diagnoses Not on filedocumented in this encounter Care Teams Diamond Sizer And Sorter Relationship Specialty Start Date End Date Brea Maciel MD [address] [place] [address] PCP - General Family Medicine 09/21/23 documented as of this encounter
--- OUTSIDE RECORDS SUMMARY | 2024-10-01 10:42 | XMS_ITS | Encounter Summary ---
Author Organization [employer] Address [address] [place] [address] Care Team Providers Care Well Flow Operator Name Role Phone Brea Maciel MD Primary Care Provider Encounter Details Date Type Department Care Team ([facility] st Contact Info) Description 02/15/2024 Telephone [facility] [address] [place] [address] Brea Maciel MD [address] [place], [place] [id number] Social History Tobacco Use Types Packs/Day Years [...] documented as of this encounter Care Teams Well Flow Operator Relationship Specialty Start Date End Date Brea Maciel MD [address] [place] [address] PCP - General Family Medicine 09/21/23 documented as of this encounter
--- OUTSIDE RECORDS SUMMARY | 2024-10-01 10:42 | XMS_ITS | Encounter Summary ---
Author Organization [employer] Address [address] [place] [address] Care Team Providers Care Machine Silk Screen Printer Name Role Phone Brea Maciel MD Primary Care Provider Encounter Details Date Type Department Care Team (Late st Contact Info) Description 07/24/2023 Orders Only [facility] [address] [place] [address] Shawn Mendez MD [address] [place] [address] Social History Tobacco Use Types Packs/Day Years [...] on filedocumented in this encounter Care Teams Machine Silk Screen Printer Relationship Specialty Start Date End Date Brea Maciel MD [address] [place] [address] PCP - General Family Medicine 09/21/23 documented as of this encounter
--- OUTSIDE RECORDS SUMMARY | 2024-10-01 10:42 | XMS_ITS | Encounter Summary ---
Author Organization [facility] Address [address] [place] [address] Care Team Providers Care Test Inspection Engineer Name Role Phone Laura Hogue APRN Primary Care Provider Apple Villatoro DO Unavailable [phone] Encounter Details Date Type Department Care Team (Late st Contact Info) Description 08/31/2022 Scanned Document [facility] [place] [address] [place] [address] [address] [phone] Laura Hogue APRN [address] [place], [place] [id number] Social History Tobacco Use Types Packs/Day Years [...] documented as of this encounter Care Teams Test Inspection Engineer Relationship Specialty Start Date End Date Laura Hogue APRN [address] [place] [id number] PCP - General Family Medicine 09/04/19 Apple Villatoro DO [address] [place] [address] Infirmary Attendant Cardiovascular Disease 04/12/23 documented as of this encounter
--- OUTSIDE RECORDS SUMMARY | 2024-10-01 10:42 | XMS_ITS | Encounter Summary ---
Author Organization [facility] Address [address] [place] [address] Care Team Providers Care Specialist Field Engineer Name Role Phone LennieLoriefrances ESTRADA Primary Care Provider [phone] Apple Villatoro DO Unavailable [phone] Encounter Details Date Type Department Care Team (Late st Contact Info) Description 08/31/2022 Scanned Document [facility] [address] [facility] [address] [place] [phone] Shabnam Merrill MD [address] [place] [address] Social History Tobacco Use Types Packs/Day Years [...] documented as of this encounter Care Teams Specialist Field Engineer Relationship Specialty Start Date End Date Laura Hogue APRN [address] [place] [id number] PCP - General Family Medicine 09/04/19 Apple Villatoro DO [address] [place] [id number] English And Reading Instructor Cardiovascular Disease 04/12/23 documented as of this encounter
--- OUTSIDE RECORDS SUMMARY | 2024-10-01 10:42 | XMS_ITS | Encounter Summary ---
Author Organization [facility] Address [address] [place] [address] Care Team Providers Care Supervisor Bonding Name Role Phone Laura Hogue APRN Primary Care Provider Apple Villatoro DO Unavailable [phone] Encounter Details Date Type Department Care Team (Late st Contact Info) Description 03/08/2023 Scanned Document [address] [place] [phone] Provider, Generic Social History Tobacco Use Types [...] filedocumented in this encounter Care Teams Supervisor Bonding Relationship Specialty Start Date End Date Laura Hogue APRN [address] [place] [address] PCP - General Family Medicine 09/04/19 Apple Villatoro DO [address] [place] [id number] Rib Cutter Cardiovascular Disease 04/12/23 documented as of this encounter
== END 2024-10-01 11:05 | disposition home or self-care (01) ==
LOC: HO.HKA 09:49
PROVIDERS: PCP Family Medicine; Visit Provider Internal Medicine Nephrology
DX: E11.21 Type 2 diabetes mellitus with diabetic nephropathy (principal); I10 Essential (primary) hypertension; N18.31 Chronic kidney disease, stage 3a
CPT/HCPCS: 99214

== ENCOUNTER → 2024-10-01 09:48 | Outpatient (BNVA) | payer OTHER, SELFPAY | PROVIDERS: PCP Family Medicine; Visit Provider Internal Medicine Nephrology | DX: E11.22 Type 2 diabetes mellitus with diabetic chronic kidney disease (principal); I12.9 Hypertensive chronic kidney disease with stage 1 through stage 4 chronic kidney disease, or unspecified chronic kidney disease; N18.31 Chronic kidney disease, stage 3a; E11.21 Type 2 diabetes mellitus with diabetic nephropathy | CPT/HCPCS: 99212 ==

== ENCOUNTER 2024-12-13 16:37 | Emergency (ER) | payer OTHER, SELFPAY ==
--- NOTE | ~2024-12-13 | CT_ITS ---
CLINICAL HISTORY: worse headache of life CT head without contrast Comparison: CT/SR - CT HEAD/BRAIN WO IV CON - 03/12/23 18:31 EDT Findings: No intra-axial mass, midline shift, hydrocephalus, or acute hemorrhage. Mild cerebral atrophy. The visualized paranasal sinuses and mastoid air cells are normal. The orbits are within normal limits. No skull fracture. IMPRESSION: 1. No acute intracranial findings. This document has been electronically signed by: Abimael Montano MD on 12/13/2024 17:54:46
[2024-12-13 16:44] VITALS: BP 139/71; PULSE 81; RESP 20; TEMP 36.8; O2SAT 97; BMI 24.7
--- NOTE | 2024-12-13 17:01 | ED.HA ---
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 The headache is frontal, denies dizziness, nausea, vomiting. Denies recent cough or cold symptoms, no sinus pain or pressure. Patient states he has not tried any Tylenol because he was ?afraid because he is a cancer patient?. No fevers. Related Data Home Medications ?Medication ?Instructions ?Recorded ?Confirmed amlodipine 10 mg tablet 10 mg PO DAILY 12/27/22 02/26/24 atorvastatin 10 mg tablet 10 mg PO DAILY 12/27/22 02/26/24 chlorthalidone 25 mg tablet 25 mg PO DAILY 12/27/22 02/26/24 insulin aspart U-100 100 unit/mL 6 unit subcut TID 12/27/22 02/26/24 (3 mL) subcutaneous pen (Novolog FlexPen U-100 Insulin aspart) insulin glargine 100 unit/mL 68 unit subcut BEDTIME 12/27/22 02/26/24 subcutaneous solution (Lantus U-100 Insulin) levothyroxine 50 mcg tablet 50 mcg PO DAILY@0600 12/27/22 02/26/24 losartan 100 mg tablet 100 mg PO DAILY 12/27/22 02/26/24 metformin 850 mg tablet 850 mg PO BID 12/27/22 02/26/24 sertraline 100 mg tablet 150 mg PO DAILY 12/27/22 02/26/24 flash glucose sensor (FreeStyle #1 ea 02/13/24 Marlen 2 Sensor kit) lancets 33 gauge (TRUEplus Lancets) #100 ea 02/13/24 omeprazole 20 mg capsule,delayed 20 mg PO DAILY 02/13/24 02/26/24 release acetaminophen 650 mg 650 mg PO Q6H PRN fever or pain 02/26/24 02/26/24 tablet,extended release calcipotriene 0.005 % topical cream 1 appl topical BID 02/26/24 02/26/24 cholecalciferol (vitamin D3) 50 50 mcg PO DAILY 02/26/24 02/26/24 mcg (2,000 unit) capsule (Vitamin D3) dulaglutide 1.5 mg/0.5 mL 1.5 mg subcut WE 02/26/24 02/26/24 subcutaneous pen injector (Trulicity) Previous Rx's ?Medication ?Instructions ?Recorded clotrimazole-betamethasone 1 1 appl topical BID 4 weeks #45 02/13/24 %-0.05 % topical cream grams tamsulosin 0.4 mg capsule 0.4 mg PO BEDTIME 90 days #90 caps 02/13/24 Allergies Allergy/AdvReac Type Severity Reaction Status Date / Time No Known Allergies Allergy Verified 12/13/24 16:46 Review of Systems Review of Systems: Yes all other systems are reviewed and are negative Constitutional: Constitutional: Denies fatigue, Denies fever(s) and Reports headache(s) ENT: Denies dizziness, Reports headache(s), Denies nasal congestion, Denies neck pain, Denies sinus pain and Denies sinus pressure Cardiovascular: Cardiovascular: Denies chest pain and Denies dyspnea Respiratory: Respiratory: Denies cough and Denies dyspnea Gastrointestinal: Gastrointestinal: Denies nausea and Denies vomiting Musculoskeletal: Musculoskeletal: Denies back pain and Denies neck pain Neurologic: Denies dizziness and Reports headache(s) Endocrine: Endocrine: Denies fatigue [facility] Past Medical History Attestation statement: The following information was validated with the patient. Medical History (Updated 12/13/24 @ 18:56 by ALEXSANDER Garg) Hyperlipidemia Anxiety Depression History of prostate cancer Hypothyroidism Psoriasis Type 2 diabetes mellitus without 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, with shelter current use of insulin pump Chronic kidney disease Diabetes Hypertension Surgical History History of arthroplasty of knee Hx of radical prostatectomy Social History Social History Household Members: None Housing: Apartment Do you presently have visiting nurse or other home services: No Alcohol intake: former Patient Tobacco Use Status: Former Tobacco user Smoked in Last 30 Days: No Second Hand Smoke Exposure: No Use of substances other than those prescribed or required for medical reasons: No Substance Use Type: Marijuana Advance Directives: No Advance Directives Information Provided: No service: No Physical Exam Vital Signs: Vital Signs: Last Vital Signs Temp 98.3 F 12/13/24 16:44 Pulse 81 12/13/24 16:44 Resp 20 12/13/24 16:44 BP 139/71 12/13/24 16:44 Pulse Ox 97 12/13/24 16:44 O2 Del Method Room Air 12/13/24 16:44 BMI result Body Mass Index 24.7 Const: Other: Alert well-appearing Orientation/consciousness: patient oriented x3 Neck: Neck: Yes full ROM and Yes no meningeal signs Resp: Effort & Inspection: normal respiratory effort Cardio: Other: Normal peripheral perfusion Skin: Other: Warm dry no rash Neuro: Other: No ataxia General: patient oriented x3, gait normal, no meningeal signs, no focal motor deficits and CN's II-XI intact bilaterally Psych: Other: Cooperative Course Course Course Narrative: This is a RME preformed in triage by Francisca Martinez PA-C. Date: 12/13/2024, time 504 pm. Patient presents with multiple complaints. Patient has had chronic low back pain since the . This is no worse than his baseline but he thinks it is because of the pain why he had felt nauseous yesterday and vomited. Pretty also had lasagna his sisters and then it felt like he was going to be puking on his way home so he pulled over and vomited he did feel slightly better after that. First patient stated that he felt dizzy and nauseous and vomited but then he changed his story to say the above. He does not feel dizzy now he is just reporting some lightheadedness with pain in the center of his forehead which he describes as the worst headache of his life. He takes pain medicine chronically for his back it does not touch it in any way. He does not currently feel nauseous he has not had any fevers falls trauma paresthesias or weakness of his limbs. He is tolerating p.o. fluids and voiding regularly he does not feel short of breath denies any chest pain or palpitations. No fevers. In person formal mail messenger used for visit. Patient has scar tissue on the right side of his jaw with paresthesias of his based on that side only sparing the forehead. This is chronic. His tongue is chronically deviated to the left but otherwise appears hydrated. There were exam otherwise nonfocal. There is no fluid in the ears lungs are clear. Abdomen soft strength is 4+ throughout sensation fully intact. Work UP: basic labs ekg, head CT Will defer full ROS and PE to treating provider. Patient will continued to be monitored in the interim. Medications Administered Discontinued Medications Generic Name Dose Route Start Last Admin Trade Name Car PRN Reason Stop Dose Admin Acetaminophen 975 mg 12/13/24 18:39 12/13/24 18:44 Acetaminophen 325 Mg Tablet PO 12/13/24 18:40 975 mg ONCE ONE Administration Ibuprofen 600 mg 12/13/24 18:39 12/13/24 18:44 Ibuprofen 600 Mg Tablet PO 12/13/24 18:40 600 mg ONCE ONE Administration Medical Decision Making Medical Decision Making MDM Narrative: 69-year-old male with a history of hypertension, hyperlipidemia, chronic kidney disease, diabetes, hypothyroidism, prostate cancer, anxiety and depression who presents with a headache x3 days. The headache is frontal, denies dizziness, nausea, vomiting. Denies recent cough or cold symptoms, no sinus pain or pressure. Patient states he has not tried any Tylenol because he was ?afraid because he is a cancer patient?. No fevers. Problem: Diabetes, hypertension, chronic kidney disease History: Per patient I have considered the following differential diagnoses: Headache, sinus headache, intracranial hemorrhage, CVA, meningitis Plan: Patient initially reported dizziness nausea vomiting, he is asymptomatic, he has a frontal headache. He is neurologically intact, this is not consistent with a CVA. Thought about meningitis, however no concurrent neck pain no meningeal signs, he is afebrile. The patient has not had any nasal congestion any sinus pain and pressure to suggest a sinusitis. Furthermore CT scan was obtained from triage in his negative. We will be treating with Tylenol and ibuprofen. He does have Tylenol at home, we will send him with dosing. Suddenly reviewed the following tests: Labs: No leukocytosis, not anemic, no electrolyte abnormality, viral panel negative EKG: Normal sinus rhythm, rate of 75, no ischemic changes no ectopy QTC 437 CT brain:Findings: No intra-axial mass, midline shift, hydrocephalus, or acute hemorrhage. Mild cerebral atrophy. The visualized paranasal sinuses and mastoid air cells are normal. The orbits are within normal limits. No skull fracture. IMPRESSION: 1. No acute intracranial findings. Lab Data 12/13/24 17:13 12/13/24 17:14 Labs: Lab Results 12/13/24 12/13/24 Range/Units 17:13 17:14 WBC 5.1 (4.8-10.8) X10*3/uL RBC 4.79 (4.60-5.80) X10*6/uL Hgb 12.4 L (14.0-18.0) g/dl Hct 36.2 L (42.0-52.0) % MCV 75.6 L (80.0-98.0) fL MCH 25.9 L (27.0-33.0) pg MCHC 34.3 (31.0-36.0) g/dl RDW 15.1 (11.0-16.0) % Plt Count 167 (160-400) X10*3/uL MPV 9.6 (9.4-12.4) fL Immature Gran % (Auto) 0.4 (0.0-0.4) % Neut % (Auto) 69.3 (45-73) % Lymph % (Auto) 18.8 L (20-40) % Bond % (Auto) 9.3 (2-11) % Eos % (Auto) 1.8 (0-4) % Baso % (Auto) 0.4 (0-2) % Lymph # (Auto) 1.0 L (1.2-4.9) X10*3/uL Bond # (Auto) 0.5 (0.1-1.2) X10*3/uL Eos # (Auto) 0.1 (0.0-0.4) X10*3/uL Baso # (Auto) 0.0 (0.0-0.2) X10*3/uL Abs Immat Gran (auto) 0.02 (0.00-0.03) X10*3/uL Absolute Neuts (auto) 3.5 (2.0-8.3) x10*3/uL Absolute Nucleated RBC 0.000 (0.0-0.012) X10*3/uL Nucleated RBC % (auto) 0.0 (0.0-0.2) /100WBC ESR 23 H (0-15) MM/HR Sodium 136 (135-145) mmol/L Potassium 4.0 (3.3-5.1) mmol/L Chloride 104 (96-108) mmol/L Carbon Dioxide 23 (22-29) mmol/L Anion Gap 13 (12-20) BUN 17 H (9-16) mg/dL Creatinine 1.05 (0.5-1.4) mg/dL Estim Creat Clear Calc 56.3 Estimated GFR > 60 Fasting Glucose 241 H (60-99) mg/dL Calcium 9.3 (8.4-10.2) mg/dL Total Bilirubin 0.5 (0.0-1.0) mg/dL AST 26 (5-37) U/L ALT 21 (0-40) U/L Alkaline Phosphatase 133 H (39-117) U/L C-Reactive Protein 0.43 (< or = 0.50) mg/dL Total Protein 6.9 (6.5-8.0) g/dL Albumin 3.8 (3.5-5.0) g/dL Influenza Type A (PCR) NEGATIVE (Negative) Influenza Type B (PCR) NEGATIVE (Negative) RSV RNA Qual (PCR) NEGATIVE (Negative) SARS-CoV-2 RNA (RT-PCR) NEGATIVE (Negative) Discharge Plan Discharge Clinical Impression: Headache Patient Disposition: Home, Self-Care Instructions: General Headache (ED) Additional Instructions: All of your screening labs were normal, we obtained a viral panel, you were tested for influenza RSV and COVID, it was negative. There were no concerning changes on the EKG in the CT scan of your brain was normal. It is okay for you to have Tylenol, you can use 1000 mg taken every 8 hours. Follow up with your primary care provider as needed. Prescriptions: No Action calcipotriene 0.005 % cream 1 appl topical BID cholecalciferol (vitamin D3) [Vitamin D3] 50 mcg (2,000 unit) capsule 50 mcg PO DAILY Trulicity 1.5 mg/0.5 mL pen injector 1.5 mg subcut WE acetaminophen 650 mg tablet extended release 650 mg PO Q6H PRN (Reason: fever or pain) insulin glargine [Lantus U-100 Insulin] 100 unit/mL Solution 68 unit SUBCUT BEDTIME atorvastatin 10 mg Tablet 10 mg PO DAILY sertraline 100 mg Tablet 150 mg PO DAILY metformin 850 mg Tablet 850 mg PO BID chlorthalidone 25 mg Tablet 25 mg PO DAILY amlodipine 10 mg Tablet 10 mg PO DAILY levothyroxine 50 mcg Tablet 50 mcg PO DAILY@0600 losartan 100 mg Tablet 100 mg PO DAILY insulin aspart U-100 [Novolog FlexPen U-100 Insulin] 100 unit/mL (3 mL) Insulin Pen 6 unit SUBCUT TID (DME) FreeStyle Marlen 2 Sensor Kit See Rx Instructions .ROUTE .MEDSUPPLY Qty: 1 Rx Instructions: As directed (DME) lancets [TRUEplus Lancets] 33 gauge misc See Rx Instructions .ROUTE BID Qty: 100 Rx Instructions: As directed omeprazole 20 mg capsule,delayed release(DR/EC) 20 mg PO DAILY tamsulosin 0.4 mg capsule 0.4 mg PO BEDTIME 90 Days Qty: 90 1RF clotrimazole-betamethasone 1-0.05 % cream 1 appl topical BID 28 Days Qty: 45 0RF Rx Instructions: Apply thin coat 2 times per day Print Language: Martiniquais
--- NOTE | 2024-12-13 17:06 | ECG_ITS ---
Test Reason : LIGHTHEADED Blood Pressure : */* mmHG Vent. Rate : 75 BPM Atrial Rate : 75 BPM P-R Int : 148 ms QRS Dur : 92 ms QT Int : 392 ms P-R-T Axes : 60 44 29 degrees QTcB Int : 437 ms Normal sinus rhythm Normal ECG When compared with ECG of 26-Feb-2024 16:26, Vent. rate has decreased by 37 bpm Referred By: Francisca Martinez Electronically Signed By: Jerry Duke
[2024-12-13 17:18] LABS: MANUAL DIFF FLAG NO
[2024-12-13 17:20] LABS: Hematocrit 36.2 % (42.0-52.0); Hemoglobin 12.4 g/dl (14.0-18.0); Imm Gran Abs Auto 0.02 X10*3/uL (0.00-0.03); Imm Gran Pct Auto 0.4 % (0.0-0.4); Lymphocytes Absolute Auto 1.0 X10*3/uL (1.2-4.9); Mean Corpuscular HGB Conc 34.3 g/dl (31.0-36.0); Mean Corpuscular Hemoglobin 25.9 pg (27.0-33.0); Mean Corpuscular Volume 75.6 fL (80.0-98.0); NRBC Abs Auto 0.000 X10*3/uL (0.0-0.012); NRBC Pct Auto 0.0 /100WBC (0.0-0.2); Platelet Count 167 X10*3/uL (160-400); Red Blood Count 4.79 X10*6/uL (4.60-5.80); White Blood Count 5.1 X10*3/uL (4.8-10.8)
[2024-12-13 17:33] LABS: Alanine Aminotransferase 21 U/L (0-40); Albumin Level 3.8 g/dL (3.5-5.0); Alkaline Phosphatase 133 U/L (39-117); Anion Gap 13 (12-20); Aspartate Amino Transferase 26 U/L (5-37); Blood Urea Nitrogen 17 mg/dL (9-16); Calcium 9.3 mg/dL (8.4-10.2); Carbon Dioxide 23 mmol/L (22-29); Chloride 104 mmol/L (96-108); Creatinine Clr Calc Pharmacy 56.3; Estimated Glomerular Filt Rate > 60; Potassium 4.0 mmol/L (3.3-5.1); Sodium 136 mmol/L (135-145); Total Protein 6.9 g/dL (6.5-8.0)
[2024-12-13 17:57] LABS: Resp Syncy Virus RNA Qual PCR NEGATIVE (Negative); SARS COV2 PCR INHOUSE NEGATIVE (Negative)
[2024-12-13 18:52] VITALS: BP 138/73; PULSE 79; RESP 16; TEMP 36.8; O2SAT 100
[2024-12-13 19:01] VITALS: BP 138/73; PULSE 79; RESP 16; TEMP 36.8; O2SAT 100
== END 2024-12-13 19:01 | disposition home or self-care (01) ==
PROVIDERS: Physician Assistant Medical; Emergency Provider Emergency Medicine; PCP Family Medicine
DX: R51.9 Headache, unspecified (principal); E11.22 Type 2 diabetes mellitus with diabetic chronic kidney disease; I12.9 Hypertensive chronic kidney disease with stage 1 through stage 4 chronic kidney disease, or unspecified chronic kidney disease; N18.9 Chronic kidney disease, unspecified; E03.9 Hypothyroidism, unspecified; Z03.818 Encounter for observation for suspected exposure to other biological agents ruled out
CPT/HCPCS: 36415; 70450; 80053; 85025; 85652; 86140; 87637; 93005; 99284

== ENCOUNTER → 2024-12-13 17:03 | Outpatient (BNV) | payer OTHER, SELFPAY | PROVIDERS: PCP Family Medicine; Visit Provider Radiology Diagnostic Radiology | DX: G31.9 Degenerative disease of nervous system, unspecified (principal) | CPT/HCPCS: 70450 ==

== ENCOUNTER → 2024-12-13 17:06 | Outpatient (BNV) | payer OTHER, SELFPAY | PROVIDERS: Emergency Provider Emergency Medicine; PCP Family Medicine; Visit Provider Internal Medicine Cardiovascular Disease | DX: R42 Dizziness and giddiness (principal) | CPT/HCPCS: 93010 ==

== ENCOUNTER → 2025-01-12 09:15 | Outpatient (REF) | payer OTHER, SELFPAY ==
--- NOTE | 2025-01-12 09:33 | HM_ITS ---
Conclusion: 1. Patient was monitored for total period of 2 days 2. Baseline rhythm was normal sinus rhythm with average heart of 86 beats per minute 3. No significant pauses or arrhythmias noted 4. No patient reported events MTDD
--- OUTSIDE RECORDS SUMMARY | 2025-01-12 09:42 | XMS_ITS | Clinical Summary ---
Author Organization [facility] Address [address] [place] [address] Care Team Providers Care Rail Signal Mechanic Name Role Phone LennieLoriefrances ESTRADA Primary Care Provider Apple Villatoro DO Unavailable [phone] Allergies Active Allergy Reactions Criticality Noted [...] Admin Instructions . Active Continuous Blood Gluc Kettle Operator Head (FreeStyle Marlen 2 [place]) Device 1 PER YEAR Active Continuous Blood Gluc Sensor (FreeStyle Marlen 2 Sensor) [facility] See Admin Instructions . 10/28/2021 Active ibuprofen [...] 80 04/04/2023 1:56 PM EDT Temperature 36.1 C (96.9 F) 04/04/2023 1:56 PM EDT Respiratory Rate 18 03/01/2023 2:05 PM EDT [...] 11/24/2020, 08/0 09/2019, 08/27/2019, Additional history exists Microalbumin/Creatinine Ratio Urine 02/13/2024 02/12/2023, 11/24/2020, 03/13/2019 Creatinine with GFR 02/29/2024 02/28/2023, 10/03/2022, 08/18/2021, Additional history exists Influenza Vaccine 01/02/2025 02/24/2018, 02/24/2018 Colonoscopy 04/06/2025 04/06/2020, 07/06 (Previously Completed), 07/31/2018 [...] Comprehensive Metabolic Panel (02/28/2023 1:22 PM EDT) Pathologist [facility] Glucose 409(HH) 65 - 99 mg/dL 02/28/2023 2:17 PM EDT [facility] Comment:Fasting: <100 mg/dL, Non-Fasting: <200 mg/dL (ADA 2005) Blood Urea Nitrogen (BUN) 42(H) 8 - 21 mg/dL 02/28/2023 2:17 PM [facility] Creatinine 1.5(H) 0.5 - 1.3 mg/dL 02/28/2023 2:17 PM [facility] eGFR 51(L) >59 02/28/2023 2:17 PM [facility] Comment:CKD-EPI (2020) in mL /min/1.73 sq meters. Sodium 133(L) 136 - 145 mmol/L 02/28/2023 2:17 PM [facility] Potassium 3.7 3.4 - 5.3 mmol/L 02/28/2023 2:17 PM [facility] Chloride 95(L) 98 - 107 mmol/L 02/28/2023 2:17 PM [facility] CO2 25 22 - 33 mmol/L 02/28/2023 2:17 PM [facility] Calcium 9.7 8.7 - 10.5 mg/dL 02/28/2023 2:17 PM [facility] Alkaline Phosphatase 105 45 - 128 U/L 02/28/2023 2:17 PM [facility] Aspartate Aminotrans (AST) 40 10 - 55 U/L 02/28/2023 2:17 PM [facility] Alanine Aminotrans (ALT) 59(H) 10 - 55 U/L 02/28/2023 2:17 PM [facility] Bilirubin, Total 0.5 0.2 - 1.0 mg/dL 02/28/2023 2:17 PM [facility] Protein, Total 7.7 6.3 - 8.3 g/dL 02/28/2023 2:17 PM [facility] Albumin 4.2 3.4 - 4.8 g/dL 02/28/2023 2:17 PM [facility] BUN/Creatinine Ratio 28(H) 10.0 - 25.0 Ratio 02/28/2023 2:17 PM [facility] Globulin 3.5 1.5 - 3.9 g/dL 02/28/2023 2:17 PM [facility] Albumin/Globulin Ratio 1.2 1.0 - 3.0 Ratio 02/28/2023 2:17 PM [facility] Anion Gap 13 7 - 17 02/28/2023 2:17 PM EDT [facility] Blood specimen (specimen) (Plasma/Serum) 02/28/2023 1:22 PM EDT 02/28/2023 1:48 PM EDT [facility] BLOOD ORDERABLES Final Re sult [facility] See Below [facility] [address] [place] [address] * POCT Microalbumin (02/12/2023 10:37 AM EDT) Microalbumin, POC 10.0 MG/L Creatinine Urine, POC 100.0 MG/DL Microalbumin/Cr eat Ratio, POC <30 MG/G Lot Number [id number] Log Hauler [place] Urine 02/12/2023 10:3 7 AM EDT Result [facility] Amor Velasco MD POINT OF CARE TEST ORDERABLES Final Result * (ABNORMAL) Hemoglobin A1c with Estimated Average Glucose (08/27/2019 7:44 AM EDT) Hemoglobin A1C 10.2(H) <5.7 % [facility] Comment: A1c% Interpretation 5.7 - 6.0 Increase risk of diabetes 6.1 - 6.4 Higher risk of diabetes > or = 6.5 Consistent with diabetes Diabetes Care, 33(Supp 1):S1-S61, [...] EDT Impressions 08/26/2019 4:58 PM EDT 1. Multifocal patchy ground glass opacities in [...] Omnipaque 350 intravenous contrast. Sagittal and coronal reformatted images were [...] cm in short axis (series 2 image /) compared to 2016. The aorta is unremarkable. [...] report as now presented. Jennifer Monterroso MD IMG CT ORDERABLES Final Re sult * Lipid Panel (AM) (03/06/2018 7:31 AM EDT) Cholesterol, Total 135 <200 mg/dL [facility] Triglycerides 120 <150 mg/dL [facility] Cholesterol, HDL 44 >39 mg/dL [facility] Estimated LDL 67 <130 mg/dL [facility] Comment: NCEP Guidelines: < 100 mg/dL Optimal 100 - 129 mg/dL Near Optimal/Above Optimal 130 - 159 mg/dL Borderline High 160 - 189 mg/dL High >/= 190 mg/dL Very High Cholesterol/HDL Ratio 3.1 0.0 - 5.0 Ratio [facility] Comment: Relative Risk Ratio - Male Ratio - Female 0.5 3.4 3.3 1.0 5.0 4.4 2.0 9.6 7.1 3.0 23.4 11.0 Blood specimen (specimen) Blood specimen / Unknown 03/06/2018 7:31 AM EDT 03/06/2018 7:56 AM EDT Radha Carter DRYWALL METAL STUD WORKER LAB BLOOD ORDERABLES Final Res ult [facility]OSPITAL LAB from Last 3 Months or Most Recently Relevant to Health Maintenance Insurance [place] [address] MEDICARE PART A & B Advance Directives [...] Decision Thoroughly Discussed with: Patient Care Teams Rail Signal Mechanic Relationship Specialty Start Date End Date Laura Hogue APRN [address] [place] [id number] PCP - General Family Medicine 09/04/19 Apple Villatoro DO [address] [place] [address] Grain Elevator Agent Cardiovascular Disease 04/12/23
--- OUTSIDE RECORDS SUMMARY | 2025-01-12 09:42 | XMS_ITS | Clinical Summary ---
Author Organization [facility] Address [address] [place] [address] Care Team Providers Care Seed Production Field Supervisor Name Role Phone Charis Liz Primary Care Provider [phone] William Kaplan MD Unavailable Allergies Active Allergy [...] (3 - 2023- season) 2024 10/14/2020, 09/14/2020 Diabetes: Urine Microalbumin 02/13/2024 02/12/2023 Influenza Vaccine (#1) 2025 02/24/2018 Colonoscopy 04/06/2030 04/06/2020 Colorectal Cancer [...] for routine clinical or routine diagnostic evaluation. 04/09/2019 7:37 AM EST 04/09/2019 7:38 AM EST Narrative Resulting Agency Comment Performing Organization Information: Site ID: [id number] Name: [facility] Address: [address] [place] [id number] Director: Roly Huerta M.D.,PhD us Robert Martinez MD [facility] ORDERABLES Lin l Result [facility] [id number] [place] [phone], [place] from Last 3 Months or Most Recently Relevant to Health Maintenance Insurance [address] [place] [address] MEDICA[id number] MEDICARE PART A & B Care Teams Seed Production Field Supervisor Relationship Specialty Start Date End Date Charis Liz PA [address] [place] [phone] PCP - General Internal Medicine 12/11/18 William Kaplan MD [address] [place] [id number] PCP - Insurance Payer PCP 02/02/23
--- OUTSIDE RECORDS SUMMARY | 2025-01-12 09:43 | XMS_ITS | Clinical Summary ---
Author Organization [facility] Address [address] [facility] [address] [place] [address] Phone Care Team Providers Care Seafood Preparer Name Role Phone Unavailable Primary Care Provider Unavailabl e Allergies No known active allergies Medications sertraline (ZOLOFT) 100 MG tablet Take 100 mg by mouth daily. 4 Active senna (SENNA LAX) 8.6 mg tablet Take 2 tablets by mouth daily. 4 Active polyethylene glycol (MIRALAX) 17 gram packet Take 17 g by mouth daily. 4 Active levothyroxine (SYNTHROID, LEVOTHROID) 50 MCG tablet Take 50 mcg by mouth every morning. 4 Active insulin glargine 100 unit/mL (3 mL) InPn injection pen Inject 24 Units under the skin nightly at bedtime. 4 Active insulin glargine (LANTUS SOLOSTAR U-100 INSULIN) 100 unit/mL (3 mL) InPn injection pen Inject 21 Units under the skin 3 (three) times a day with meals. 4 Active chlorhexidine (PERIDEX) 0.12 % solution Use as directed 15 mL in the mouth or throat 4 (four) times a day. 4 Active atorvastatin (LIPITOR) 10 MG tablet Take 10 mg by mouth daily. 4 Active aspirin 81 mg chewable tablet Take 81 mg by mouth daily. 4 Active amLODIPine (NORVASC) 10 MG tablet Take 10 mg by mouth daily. 4 Active acetaminophen (TYLENOL) 325 mg tablet Take 975 mg by mouth every 6 (six) hours as needed for pain (specific location in comments). 4 Active omeprazole (PRILOSEC) 20 MG capsule Take 20 mg by mouth daily. 4 Active amoxicillin-cla vulanate (AUGMENTIN) 600-42.9 mg/5 mL suspension (To Go) Take 45 mg/kg of amoxicillin by mouth 2 (two) times a day (once in the morning and once in the afternoon). 5 Active nystatin (MYCOSTATIN) 100,000 units/mL suspension Take 200,000 Units by mouth 4 (four) times a day. 5 Active cholecalciferol (VITAMIN D3) 2,000 unit capsule Take 2,000 Units by mouth daily. 4 Active ibuprofen (MOTRIN IB) 200 MG tablet Take 200 mg by mouth every 6 (six) hours as needed for fever or pain (specific location in comments). 5 Active Social History Tobacco Use Types Packs/Day Years Used Date Smoking Tobacco: Never Assessed Home Health Assessment: Transportation Answer Date Recorded Lack of Transportation (Medical) No 08/04/2024 Lack of Transportation (Non-Medical) No 08/04/2024 Patient Unable or Declines to Respond No 08/04/2024 Education Answer Date Recorded Are you interested in more education? Not on tarah e 04/08/2024 Are you concerned about learning? Not on file 04/08/2024 No 04/08/2024 No 04/08/2024 Digital Access Answer Date Recorded No 04/08/2024 No 04/08/2024 Reliable internet access at home? Not on file 04/08/2024 Device with a working camera? Not on file Sex and Gender Information Value Date Recorded Sex Assigned at Not on file Legal Sex Male 8:22 AM EST Gender Identity Not on file Sexual Orientation Not on file Last Filed Vital Signs Vital Sign Reading Time Taken Comments Blood Pressure 130/82 08/04/2024 11:00 AM EST Pulse 99 08/04/2024 11:00 AM EST Temperature 36.8 C (98.3 F) 08/04/2024 11:00 AM EST Respiratory Rate 18 07/24/2024 9:39 AM EST Oxygen Saturation 96% 08/04/2024 11:00 AM EST Inhaled Oxygen Concentration - - Weight - - Height - - Body Mass Index - - Plan of Treatment Not on file Medical Devices Not on file Insurance MEDICARE REPLACEMENT MEDICARE REPLACEMENT MEDICARE REPLACEMENT MEDICARE REPLACEMENT MEDICARE REPLACEMENT MEDICARE REPLACEMENT ALEXSANDER CURRY [id number] Additional Source Comments The information contained in this document represents components of the legal health record. It is not the complete legal health record.[facility]
--- OUTSIDE RECORDS SUMMARY | 2025-01-12 09:43 | XMS_ITS | Clinical Summary ---
Author Organization [facility] Address [address] [place] [address] Care Team Providers Care Cash Management Officer Name Role Phone Pcp, Chester Akbar MD Primary Care Provider [phone] Allergies Active Allergy Reactions Criticality Noted Date [...] 77 08/17/2021 12:50 PM EDT Temperature 36.7 C (98.1 F) 08/17/2021 12:50 PM EDT Respiratory Rate 16 08/17/2021 12:50 PM EDT [...] 01/06/2020, Additional history exists Diabetes: Microalbumin Test 11/24/2021 06/2 08/2020, 03/13/2019, 01/25/2018, Additional history exists Influenza Vaccine (#1) 2025 02/24/2018 DTap / Tdap / Td (3 [...] Recent Progress Patient-Stated? Author Carry glucose tablets [facility] Kimberlyn Coyle, RN Take Novolog 5-10 minutes before each meal [facility] Kimberlyn Coyle, RN Schedule eye exam [facility] Kimberlyn Coyle, RN Check BG TID before breakfast, lunch and dinner and keep log [facility] Kimberlyn Coyle, RN Care Teams Cash Management Officer Relationship Specialty Start Date End Date Pcp, Chester Akbar MD [address] [place] [address] PCP - General Straddle Bug Driver 08/17/21
--- OUTSIDE RECORDS SUMMARY | 2025-01-12 09:43 | XMS_ITS | Patient Health Record ---
Author Organization [facility] Address [address] [place] [address] Care Team Providers Care Demolition Worker Name Role Phone Laura Hogue Primary Care [...] UNITS UNDER THE SKIN EVERY DAY Subcutaneous daily; Duration: 100 days Please dispensed 4 boxes Active NovoLOG FlexPen 100 UNIT/ML 6 units with meals Subcutaneous tid; Duration: 90 days Active Blood Pressure Monitor - as directed external daily/ lifetime/ automatic; Duration: 999 days Dx I10 Active Pen Milo 3/16 31G X 5 MM use with insulin subcutaneously daily with lantus. E11.22; Duration: 90 days togolese labels please Active Gabapentin 400 MG 1 capsule Orally qhs ; Duration: 30 day(s) Active Acetaminophen 500 MG 1 tablet as needed Orally every 6 hrs; Duration: 7 days 01/19/2023 Active Jardiance 25 MG 1 tablet Orally Once a day; Duration: 90 days 07/17/2022 Active Ammonium Lactate 12 % 1 application to affected area Externally Twice a day; Duration: 30 days Active NovoFine Plus 32G X 4 MM as directed subcutaneously daily; Duration: 30 days 04/06/2021 Active Cyclobenzaprine HCl 10 MG 1 tablet at bedtime as needed Orally Once a day; Duration: 7 days 11/09/2022 Active Ambien 5.000 1 tab(s) Orally qhs; Duration: 90 days togolese labels please Unknown Blood Pressure Kit - as directed externa l daily and as needed for symptoms; Duration: 48 weeks Please issue digital monitor for I10 01/11/2018 Unknown Tylenol 8 Hour 650 MG 2 tablets as neede d Orally every 8 hrs 11/09/2022 Active Levothyroxine Sodium 50 MCG TAKE 1 tablet early in morning on empty stomach separate from other medications Orally daily in the morning; Duration: 30 days Active Pioglitazone HCl 15 MG 1 tablet Orally O nce a day; Duration: 90 days togolese labels please 01/09/2020 Active Atorvastatin Calcium 10 MG 1 tablet Orally at bedtime (once a day); Duration: 90 days togolese labels please Active Metoprolol Succinate ER 25 MG 1 tablet Orally Once a day 05/05/2019 Active OneTouch Delica Lancets 33G - as directed intradermal TID/lifetime; Duration: 90 days 07/28/2022 Active OneTouch Ultra 2 w/Device as directed in vitro TID/lifetime; Duration: 999 days 07/28/2022 Active OneTouch Ultra - as directed In Vitro TID/lifetime; Duration: 90 days 07/28/2022 Active Voltaren 1 % as directed Externally bid prn; Duration: 30 days 07/29/2022 Active FreeStyle Marlen 2 Sensor - as directed intradermally daily; Duration: 90 days 10/28/2021 Active metFORMIN HCl 850 MG 1 tablet with a mel l Orally twice a day; Duration: 90 days togolese labels please Active FreeStyle Marlen 2 [place] - 1 PER YEAR; Duration: 1 Active amLODIPine Besylate 10 MG 1 tablet Orally daily; Duration: 90 days Active Pantoprazole Sodium 40 MG 1 tablet Orally Once a day; Duration: 30 day(s) 08/29/2021 Active Losartan Potassium 100 MG as directed Orally daily; Duration: 90 days togolese labels please 02/24/2019 Active Glucometer 1 as directed intradermal tid qac; Duration: 999 days 07/17/2022 Active Chlorthalidone 25 mg 1 tablet in the morning with food Orally Once a day; Duration: 90 days togolese labels please Active Sertraline HCl 100 MG 1.5 tablets Orally Once a day; Duration: 90 days Active Immunizations Vaccine Route Administration Date Status Comme nts Tdap Unknown 12/01/2010 Administered ([facility]Status: Com pleted Novel [id number], all formulations Unknown 05/14/2009 Administered ([facility])Status:Com pleted Influenza (split), 3 yrs and above Unknown 05/05/2010 Administered ([facility])Status:Com pleted Influenza (split), 3 yrs and above Unknown 06/09/2010 Administered ([facility]Status:Com pleted Fluarix Quadrivalent IM Intramuscular 03/10/2019 Administe red JUAN DIEGO well. No adverse reaction oted. Fluarix Quadrivalent IM Intramuscular 03/01/2020 Administe red COVID-19 Vaccine(Moderna) 2nd dose IM Intramuscular 10/14/2020 Administered COVID-19 Vaccine(Moderna) 1st dose IM Intramuscular 09/14/2020 Administered EUA fact sheet given Social History Tobacco Use: Social History Observation [...] with others, in a hotel, in a retirement, living outside on the street, on a beach, or in a park) Are you worried about losing your housing? No What is the highest level of school that you have finished? High school diploma or GED What is your current work situation? Otherwise unemployed but not seeking work (ex. 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 Stress is when someone feels tense, nervous, anxious, or cant sleep at night because their mind is troubled Very much In the past year have you spent more than 2 nights in a row in a half-way, penitentiary, half-way center, or juvenile correctional facility? No Are [...] Peripheral circulatory disorder associated with diabetes mellitus (591027366) Type 2 diabetes mellitus with other circulatory 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s (E11.59) 2015 Active confirmed (Migrated)unc ontrolled sugar level over 200 Problem Hyperglycemia due to type 2 diabetes mellitus (127212180712394) Type 2 diabetes mellitus with hyperglycemia (E11.65) Active confirmed Problem Generalized anxiety disorder (70375610) Generalized anxiety disorder (F41.1) Active confirmed Problem Chronic pain (24791157) Other chronic pain (G89.29) Active confirmed Problem Chronic kidney disease due to hypertension (409815314719424) Hypertensive chronic kidney disease with stage 1 through stage 4 chronic kidney disease, or unspecified chronic kidney disease (I12.9) Active confirmed Problem Localized, primary osteoarthritis of the wrist (402723983) Primary osteoarthritis, 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) Active confirmed Problem Localized, primary osteoarthritis of the hand (246293134) Primary osteoarthritis, right hand (M19.041) Active confirmed Problem Pes planus (60745590) Flat foot [pes planus] (acquired), right foot (M21.41) Active confirmed Problem Pes planus (52022020) Flat foot [pes planus] (acquired), left foot (M21.42) Active confirmed Problem Cervicalgia (96627662) Cervicalgia (M54.2) Active confirmed C2, C4- per X-ray: C/spine loss of lordosis to Kyphosis Disc deg C7-T1 Spondylosis Problem Gastroesophageal reflux disease without esophagitis (964032398) Gastroesophageal reflux disease without esophagitis (K21.9) Active confirmed Problem Vertigo (773998191) Vertigo (R42) Active confirmed Problem Erectile dysfunction (disorder) (469148849) Erectile dysfunction, unspecified erectile dysfunction type (N52.9) Active confirmed Problem Arthritis (4198748) Arthritis (M19.90) Active confirmed Problem Elevated liver enzymes level (683200844) Elevated liver enzymes (R74.8) Active confirmed Problem Depressive disorder (99532993) Depressive disorder (F32.9) Active confirmed Problem History of malignant neoplasm of prostate (008212165) History of prostate cancer (Z85.46) Active confirmed Problem Steatosis of liver (315784022) Hepatic steatosis (K76.0) Active confirmed Problem Enthesopathy (95555607) Right wrist tendonitis (M77.8) Active confirmed Problem Cortical age-related cataract of both eyes (001162660945609) Cortical age-related cataract of both eyes (H25.013) Active confirmed Problem Lumbosacral spondylosis without myelopathy (96841023) 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) Active confirmed Problem Cervical spondylosis without myelopathy (021498197) Spondylosis of cervical region without myelopathy or radiculopathy (M47.812) Active confirmed Problem Chronic kidney disease stage 3 (291362008) Chronic kidney disease, stage III (moderate) (N18.30) Active confirmed Problem Articular cartilage disorder of wrist (769472804) Degenerative TFCC tear, right (M24.131) Active confirmed Problem Diabetic renal disease (747559453) Type 2 diabetes mellitus with diabetic chronic kidney disease (E11.22) Active confirmed High 09/2018, tradjenta removed due to pancreatitis Problem Schizoaffective disorder, depressive type (22553365) Schizoaffective disorder, depressive type (F25.1) Active confirmed med Problem Psoriasis (2881302) Psoriasis (L40.9) Active confirmed med Problem Long-term current use of insulin (074165481) USP current use of insulin (Z79.4) Active confirmed High Problem Nuclear senile cataract (390536118) Nuclear sclerosis of both eyes (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 Problem Balanitis (16488427) Balanitis (N48.1) Inactive confirmed Problem Chronic kidney disease stage 3 (disorder) (884309310) Chronic kidney disease, stage III (moderate) (N18.3) Inactive confirmed High [place] physican 08/2016 follows [place] : Stage III renal disease. to see renal in 4 months . DM since 2005 and HTn since 2013--told them I follow his Bs and tellme he sees [facility] Problem Type II diabetes mellitus without 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 (571033045) Encounter for diabetic foot exam (E11.9) Inactive confirmed Problem Primary hypertension (77136061) Primary hypertension (I10) Inactive confirmed Problem Hypothyroidism (23725855) Hypothyroidism, unspecified type (E03.9) Active confirmed Med Problem Hyperlipidaemia (76104345) Hyperlipidemia, unspecified hyperlipidemia type (E78.5) Active confirmed med Problem Presbyopia (32708319) Presbyopia of both eyes (H52.4) Active confirmed [...] Insured Coverage Start Date Coverage End Date [employer] [place] - Medicare Replacement Plan [address] [place] [address] [id number] Mushtaq lowryFeliciano Self - patient is the insured [employer] [address] [place], [place] [id number] Mushtaq Jeffsri lowryFeliciano Self - patient is the insured DENTAL Medicaid SECONDARY [address] [place] [address] [id number] Mushtaq Jeffsri lowry, Feliciano Self - patient is the insured [facility] Medicare Plans [address] [place] [address] [id number] Mushtaq Jeffsri lowryFeliciano Self - patient is the insured D[employer]AL [place] [address] [address] [place] [address] [id number] Mushtaq Ricesuma Feliciano lowry Self - patient is the insured Medical [...]
--- OUTSIDE RECORDS SUMMARY | 2025-01-12 09:43 | XMS_ITS | Encounter Summary ---
Author Organization [employer] Address [address] [facility] [address] [place] [address] Care Team Providers Care Economic Analyst Name Role Phone Brea Maciel MD Primary Care Provider [phone] Reason for Visit * Reason Comments Med Refill Encounter Details Date Type Department Care Team ([facility] Contact Info) Description 10/16/2024 Refill [facility] [address] [place] [address] Brea Maciel MD [address] [place] [address] Social History Tobacco Use Types Packs/Day Years [...] Care Team (Late st Contact Info) Description 01/23/2025 2:00 PM EDT Office Visit [facility] [address] [place] [address] Brea Maciel MD [address] [place] [address] 02/09/2025 9:30 AM EDT Office Visit [facility] [address] [place] [address] Brea Maciel MD [address] [place] [address] documented as of this encounter Visit Diagnoses Not on filedocumented in this encounter Additional Health Concerns Assessment Noted Time PHQ-9 Depression Total Score: 0 07/09/19 8:57 AM EST documented as of this encounter Care Teams Economic Analyst Relationship Specialty Start Date End Date Brea Maciel MD [address] [place] [address] PCP - General Family Medicine 09/21/23 Home Care [facility] 10/01/24 documented as of this encounter
== END ==
LOC: HO.CARD 09:15
PROVIDERS: PCP Family Medicine; Visit Provider Family Medicine
DX: R42 Dizziness and giddiness (principal)
CPT/HCPCS: 93225

== ENCOUNTER → 2025-01-12 09:33 | Outpatient (BNV) | payer OTHER, SELFPAY | PROVIDERS: PCP Family Medicine; Visit Provider Internal Medicine Cardiovascular Disease | DX: R00.0 Tachycardia, unspecified (principal) | CPT/HCPCS: 93227 ==

== ENCOUNTER 2025-01-16 08:42 | Emergency (ER) | payer OTHER, SELFPAY ==
--- NOTE | ~2025-01-16 | XR_ITS ---
EXAMINATION: XR KNEE 4 OR MORE VIEWS LEFT HISTORY: pain and swelling COMPARISON: Comparison is made with the prior examination dated 07/24/2023. FINDINGS: Four views of the left knee are submitted. Osseous mineralization is normal. The patient is status post partial resection of the fibula.. There is no fracture or dislocation. The joint spaces are preserved. There is chondrocalcinosis. There are vascular calcifications. There is no joint effusion. XR/XR knee LT 4V IMPRESSION: Status post partial resection of the fibula. Chondrocalcinosis. Electronically signed by: Leopoldo Veliz MD 01/16/2025 10:27 AM EDT
--- NOTE | ~2025-01-16 | US_ITS ---
EXAMINATION: US LOWER EXTREMITY VEINS LIMITED FOLLOW UP LEFT HISTORY: pain and swelling COMPARISON: There are no prior studies available for comparison. TECHNIQUE: Duplex and color Doppler sonographic examination of the deep venous system of the left lower extremity was performed. FINDINGS: The common femoral and superficial femoral veins are patent demonstrating normal compressibility, spontaneous flow, and augmentation. The patient cannot tolerate compression of the popliteal vein. However, there is normal spontaneous flow without evidence of intraluminal thrombus. The posterior tibial and peroneal veins are patent. US/US venous duplex LE LT IMPRESSION: Limited compressibility of the popliteal vein due to patient pain. No evidence of acute DVT in the left lower extremity. Electronically signed by: Leopoldo Veliz MD 01/16/2025 10:29 AM EDT
--- NOTE | ~2025-01-16 | CT_ITS ---
EXAMINATION: CT KNEE WITHOUT IV CONTRAST LEFT HISTORY: Pain and swelling, fall. TECHNIQUE: Serial 1 mm helically acquired images were obtained through the left knee per standard departmental protocol. Coronal and sagittal reformats were also obtained and evaluated. One or more of the following techniques was used for dose reduction: Automated exposure control, adjustment of the mA and/or kV according to patient size, use of iterative reconstruction technique. DLP: 207 mGy-cm COMPARISON: Correlation is made with plain films of the left knee performed earlier in the day. FINDINGS: Osseous mineralization is normal. There has been partial resection of the fibula. There is no fracture or dislocation. There is narrowing of the medial compartment. There is chondrocalcinosis. There is a small to moderate joint effusion. CT/CT knee LT wo IV con IMPRESSION: Small to moderate joint effusion. No evidence of fracture of the left knee. Electronically signed by: Leopoldo Veliz MD 01/16/2025 02:50 PM EDT
--- NOTE | 2025-01-16 09:01 | ED.GENADULT ---
HPI - General Adult General Chief complaint: Extremity Injury, Lower Stated complaint: Left leg pain and swelling Time Seen by Provider: 01/16/25 08:59 Source: patient, EMS, RN notes reviewed, old records reviewed and clinical informatics educator Mode of arrival: EMS Limitations: language barrier History of Present Illness ED Provider: Helen HPI narrative: Patient is a 69-year-old Hungarian-speaking male with history of hypertension, diabetic nephropathy, CKD stage IIIA, T2 DM, prostate cancer presenting to the emergency department with complaint of left knee pain and swelling since yesterday. States that the pain is severe and that when he tried to get out of bed this morning the pain caused him to fall. He denies head strike or loss of consciousness. Denies any headache, neck or back pain. States his only complaint is left knee pain. Describes the pain as behind his left knee. MD complaint: knee pain Onset (ago): day(s) Related Data Home Medications ?Medication ?Instructions ?Recorded ?Confirmed amlodipine 10 mg tablet 10 mg PO DAILY 12/27/22 02/26/24 atorvastatin 10 mg tablet 10 mg PO DAILY 12/27/22 02/26/24 chlorthalidone 25 mg tablet 25 mg PO DAILY 12/27/22 02/26/24 insulin aspart U-100 100 unit/mL 6 unit subcut TID 12/27/22 02/26/24 (3 mL) subcutaneous pen (Novolog FlexPen U-100 Insulin aspart) insulin glargine 100 unit/mL 68 unit subcut BEDTIME 12/27/22 02/26/24 subcutaneous solution (Lantus U-100 Insulin) levothyroxine 50 mcg tablet 50 mcg PO DAILY@0600 12/27/22 02/26/24 losartan 100 mg tablet 100 mg PO DAILY 12/27/22 02/26/24 metformin 850 mg tablet 850 mg PO BID 12/27/22 02/26/24 sertraline 100 mg tablet 150 mg PO DAILY 12/27/22 02/26/24 flash glucose sensor (FreeStyle #1 ea 02/13/24 Marlen 2 Sensor kit) lancets 33 gauge (TRUEplus Lancets) #100 ea 02/13/24 omeprazole 20 mg capsule,delayed 20 mg PO DAILY 02/13/24 02/26/24 release acetaminophen 650 mg 650 mg PO Q6H PRN fever or pain 02/26/24 02/26/24 tablet,extended release calcipotriene 0.005 % topical cream 1 appl topical BID 02/26/24 02/26/24 cholecalciferol (vitamin D3) 50 50 mcg PO DAILY 02/26/24 02/26/24 mcg (2,000 unit) capsule (Vitamin D3) dulaglutide 1.5 mg/0.5 mL 1.5 mg subcut WE 02/26/24 02/26/24 subcutaneous pen injector (Trulicity) Previous Rx's ?Medication ?Instructions ?Recorded clotrimazole-betamethasone 1 1 appl topical BID 4 weeks #45 02/13/24 %-0.05 % topical cream grams tamsulosin 0.4 mg capsule 0.4 mg PO BEDTIME 90 days #90 caps 02/13/24 lidocaine 5 % topical patch 1 patch topical DAILY #15 ea 01/16/25 Allergies Allergy/AdvReac Type Severity Reaction Status Date / Time No Known Allergies Allergy Verified 01/16/25 09:17 Review of Systems Review of Systems: As per HPI Yes all other systems are reviewed and are negative Constitutional: Constitutional: Reports as per HPI PMFSH Past Medical History Medical History (Updated 01/16/25 @ 16:15 by Emani Cervantes NP) Hyperlipidemia Anxiety Depression History of prostate cancer Hypothyroidism Psoriasis Type 2 diabetes mellitus without 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, with prison current use of insulin pump Chronic kidney disease Diabetes Hypertension Surgical History History of arthroplasty of knee Hx of radical prostatectomy Social History Social History Household Members: None Housing: Apartment Do you presently have visiting nurse or other home services: No Alcohol intake: former Patient Tobacco Use Status: Former Tobacco user Second Hand Smoke Exposure: No Substance Use Type: Marijuana Advance Directives: No Advance Directives Information Provided: Yes service: No Physical Exam ED Vital Signs: Vital Signs - 24 hr 01/16/25 09:13 01/16/25 10:00 01/16/25 11:59 Temperature 98.6 F 98.4 F 98.4 F Pulse Rate 78 89 88 Respiratory Rate 16 15 14 Blood Pressure 152/78 H 153/69 H 144/73 H Pulse Oximetry 100 100 100 Oxygen Delivery Method Room Air Room Air Room Air 01/16/25 14:00 Temperature 98.4 F Pulse Rate 80 Respiratory Rate 15 Blood Pressure 140/70 H Pulse Oximetry 100 Oxygen Delivery Method Room Air BMI result Body Mass Index 23.2 Vital signs have been reviewed and appear to be correct. Blood pressure elevated. Heart rate normal. Respiratory rate normal. Temperature normal. Oxygen saturation normal. Const General: cooperative and no acute distress Orientation/consciousness: oriented to person, oriented to place, oriented to time and patient oriented x3 Limitations: language barrier HENMT Head: Yes normocephalic and Yes atraumatic Ears: external ears normal General nose exam: Normal external nose present Face and sinus: Yes face symmetric Mouth: oropharynx normal and moist mucous membranes Throat: Yes uvula midline Eyes Pupils: Equal, round and reactive pupils present Neck Neck: Yes normal visual inspection and Yes supple Resp Effort & Inspection: normal respiratory effort and able to speak in complete sentences Auscultation: clear to auscultation bilaterally Cardio Rate: regular rate Rhythm: regular rhythm Heart sounds: S1 normal heart sound present and S2 normal heart sound present GI Palpation (GI): Soft to palpation and nontender Auscultation: normoactive bowel sounds General: Yes no CVA tenderness Back/Spine/Pelvis Back: no CVA tenderness Skin General skin exam: elasticity normal and turgor normal Neuro General: oriented to person, oriented to place, oriented to time, patient oriented x3, moves all extremities, no focal motor deficits and CN's II-XI intact bilaterally Cranial nerves: Yes Equal, round and reactive pupils present Cognition (Neuro): normal cognition Extrem General: Yes full ROM, Yes no pedal edema and Yes no calf tenderness Left lower extremity: knee Details: tenderness Location: of the popliteal fossa, swelling (diffuse) and abnormal ROM and foot Details: vascular exam Details: dorsalis pedis pulse present, posterior tibial pulse present and normal capillary refill Psych Mental Status: mental status grossly normal Affect: normal affect Thought process: Normal thought process present Medications Administered Discontinued Medications Generic Name Dose Route Start Last Admin Trade Name Freq PRN Reason Stop Dose Admin Acetaminophen 975 mg 01/16/25 13:13 01/16/25 13:53 Acetaminophen 325 Mg Tablet PO 01/16/25 13:14 975 mg ONCE ONE Administration Oxycodone HCl 5 mg 01/16/25 09:21 01/16/25 09:38 Oxycodone Hcl Immed Release 5 Mg Tablet PO 01/16/25 09:22 5 mg ONCE ONE Administration Procedures Procedure Narrative Procedure Narrative: I was asked to participate in the care only by performed repeat ultrasound of the leg to exclude DVT see report below: EMERGENCY ULTRASOUND INTERPRETATION-Limited Point of Care Venous (DVT) [This study was ordered, performed, and interpreted by myself. The study reveals: Impression: NO EVIDENCE OF DVT. I RECOMMENDED TO THE PATIENT REPEAT ULTRASOUND IN ONE WEEK IF SYMPTOMS PERSIST.] [Indication: Laterality: LEFT Common Femoral: -Full Compressibility: YES -Clot Seen: NO Superficial Femoral: -Full Compressibility: YES -Clot Seen: NO Popliteal: -Full Compressibility: YES -Clot Seen: NO Other: Performed by: Selvin Asher MD Images were stored CPT: 79421] Medical Decision Making Medical Decision Making [facility] Narrative: Patient is a 69-year-old Hungarian-speaking male with history of hypertension, diabetic nephropathy, CKD stage IIIA, T2 DM, prostate cancer presenting to the emergency department with complaint of left knee pain and swelling since yesterday. On exam patient is awake, A+Ox3, VS WNL, afebrile, normal neurological exam without focal deficits, physical exam findings as above. Given reported symptoms and physical exam findings, initial differential includes but is not limited to DVT, effusion, osteoarthritis, Cabrera's cyst. Unlikely septic joint as no erythema/warmth, no fevers. Labs notable for no leukocytosis, mildly elevated ESR/CRP. X-ray and CT scan of left knee notable for no acute fracture. U/S notable for no evidence of DVT. My interpretation is in agreement with the radiologist's interpretation. Results discussed with patient and all questions answered. Will send prescription for topical lidocaine patches. Advised patient to take 650 mg of Tylenol every 6 hours as needed for pain at home. Provided with Alan bandage and advised to keep leg elevated and apply ice intermittently at home. Follow up with PCP this week. Return precautions discussed at bedside with patient and sister via telephone. Patient verbalized understanding of and agreement with plan. Differential Diagnosis Differential Diagnoses: The differential diagnosis associated with the presentation includes As per [facility] Admission/Observation Consideration of admission/observation: Escalation of care including admission/observation considered Patient would have been admitted to the hospital had their clinical presentation warranted hospital admission. Lab Data [facility] Lab Attestation statement: I reviewed the patient's lab results. as per mdm 01/16/25 09:34 01/16/25 09:34 Labs: Lab Results 01/16/25 Range/Units 09:34 WBC 6.2 (4.8-10.8) X10*3/uL RBC 5.18 (4.60-5.80) X10*6/uL Hgb 14.0 (14.0-18.0) g/dl Hct 40.6 L (42.0-52.0) % MCV 78.4 L (80.0-98.0) fL MCH 27.0 (27.0-33.0) pg MCHC 34.5 (31.0-36.0) g/dl RDW 15.4 (11.0-16.0) % Plt Count 177 (160-400) X10*3/uL MPV 9.2 L (9.4-12.4) fL Immature Gran % (Auto) 0.8 H (0.0-0.4) % Neut % (Auto) 76.1 H (45-73) % Lymph % (Auto) 11.1 L (20-40) % Terrell % (Auto) 11.1 H (2-11) % Eos % (Auto) 0.6 (0-4) % Baso % (Auto) 0.3 (0-2) % Lymph # (Auto) 0.7 L (1.2-4.9) X10*3/uL Terrell # (Auto) 0.7 (0.1-1.2) X10*3/uL Eos # (Auto) 0.0 (0.0-0.4) X10*3/uL Baso # (Auto) 0.0 (0.0-0.2) X10*3/uL Abs Immat Gran (auto) 0.05 H (0.00-0.03) X10*3/uL Absolute Neuts (auto) 4.7 (2.0-8.3) x10*3/uL Absolute Nucleated RBC 0.000 (0.0-0.012) X10*3/uL Nucleated RBC % (auto) 0.0 (0.0-0.2) /100WBC ESR 21 H (0-15) MM/HR Sodium 138 (135-145) mmol/L Potassium 3.9 (3.3-5.1) mmol/L Chloride 102 (96-108) mmol/L Carbon Dioxide 25 (22-29) mmol/L Anion Gap 15 (12-20) BUN 15 (9-16) mg/dL Creatinine 1.09 (0.5-1.4) mg/dL Estim Creat Clear Calc 54.3 Estimated GFR > 60 Random Glucose 151 H (60-115) mg/dL Calcium 9.5 (8.4-10.2) mg/dL Total Bilirubin 0.9 (0.0-1.0) mg/dL AST 33 (5-37) U/L ALT 23 (0-40) U/L Alkaline Phosphatase 150 H (39-117) U/L C-Reactive Protein 1.18 H (< or = 0.50) mg/dL Total Protein 7.1 (6.5-8.0) g/dL Albumin 4.1 (3.5-5.0) g/dL Independent Interpretation I performed an independent interpretation of an: Plain X-Ray, Ultrasound and CT Scan Interpretation: X-ray left knee and CT scan notable for no acute fracture. U/S notable for no evidence of DVT. Radiology Impression Discussion of test interpretation with radiology: I have reviewed the radiologist's reading. Radiologist Impression: XR/XR knee LT 4V IMPRESSION: Status post partial resection of the fibula. Chondrocalcinosis. US/US venous duplex LE LT IMPRESSION: Limited compressibility of the popliteal vein due to patient pain. No evidence of acute DVT in the left lower extremity. CT/CT knee LT wo IV con IMPRESSION: Small to moderate joint effusion. No evidence of fracture of the left knee. External Record Review External record reviewed: Inpatient record, Office record and Outpatient record Prescription Management I considered prescription management with: Pain Medication Discharge Plan Discharge Clinical Impression: Left knee pain Qualifiers: Chronicity: acute Qualified Code(s): M25.562 - Pain in left knee Patient Disposition: Home, Self-Care Instructions: Bandage Change (ED), Knee Pain (ED), P.R.I.C.E. Treatment (ED) Additional Instructions: You were evaluated in the emergency department today for left knee pain. Your ultrasound did not show evidence of a DVT (blood clot). Your x-ray did not show evidence of any fractures. We recommend that you take 650 mg of Tylenol every 6 hours as needed for pain. We are also prescribing topical lidocaine patches which you can wear 12 hours on, 12 hours off. Do not apply heat directly over the patches. We recommend that you keep your leg elevated while at rest and apply ice for 10-15 minutes at a time, using caution not to apply ice directly to your skin. You can also continue to use the Alan bandage for support. Follow up with your primary care provider this week. Return to the emergency department if you develop new redness, swelling, decreased range of motion, fevers or any other new or concerning symptoms. Prescriptions: New lidocaine 5 % adhesive patch,medicated 1 patch topical DAILY Qty: 15 0RF Rx Instructions: leave on most painful area for up to 12 hrs No Action calcipotriene 0.005 % cream 1 appl topical BID cholecalciferol (vitamin D3) [Vitamin D3] 50 mcg (2,000 unit) capsule 50 mcg PO DAILY Trulicity 1.5 mg/0.5 mL pen injector 1.5 mg subcut WE acetaminophen 650 mg tablet extended release 650 mg PO Q6H PRN (Reason: fever or pain) insulin glargine [Lantus U-100 Insulin] 100 unit/mL Solution 68 unit SUBCUT BEDTIME atorvastatin 10 mg Tablet 10 mg PO DAILY sertraline 100 mg Tablet 150 mg PO DAILY metformin 850 mg Tablet 850 mg PO BID chlorthalidone 25 mg Tablet 25 mg PO DAILY amlodipine 10 mg Tablet 10 mg PO DAILY levothyroxine 50 mcg Tablet 50 mcg PO DAILY@0600 losartan 100 mg Tablet 100 mg PO DAILY insulin aspart U-100 [Novolog FlexPen U-100 Insulin] 100 unit/mL (3 mL) Insulin Pen 6 unit SUBCUT TID (DME) FreeStyle Marlen 2 Sensor Kit See Rx Instructions .ROUTE .MEDSUPPLY Qty: 1 Rx Instructions: As directed (DME) lancets [TRUEplus Lancets] 33 gauge misc See Rx Instructions .ROUTE BID Qty: 100 Rx Instructions: As directed omeprazole 20 mg capsule,delayed release(DR/EC) 20 mg PO DAILY tamsulosin 0.4 mg capsule 0.4 mg PO BEDTIME 90 Days Qty: 90 1RF clotrimazole-betamethasone 1-0.05 % cream 1 appl topical BID 28 Days Qty: 45 0RF Rx Instructions: Apply thin coat 2 times per day Discharge Date/Time: 01/16/25 16:34 Print Language: Hungarian
[2025-01-16 09:13] VITALS: BP 152/78; PULSE 78; RESP 16; TEMP 37; O2SAT 100; BMI 23.2
[2025-01-16 09:38] LABS: MANUAL DIFF FLAG NO
[2025-01-16] MEDS: oxyCODONE HCl Immed Release 5 MG TABLET PO (09:38)
[2025-01-16 09:39] LABS: Hematocrit 40.6 % (42.0-52.0); Hemoglobin 14.0 g/dl (14.0-18.0); Imm Gran Abs Auto 0.05 X10*3/uL (0.00-0.03); Imm Gran Pct Auto 0.8 % (0.0-0.4); Lymphocytes Absolute Auto 0.7 X10*3/uL (1.2-4.9); Mean Corpuscular HGB Conc 34.5 g/dl (31.0-36.0); Mean Corpuscular Hemoglobin 27.0 pg (27.0-33.0); Mean Corpuscular Volume 78.4 fL (80.0-98.0); NRBC Abs Auto 0.000 X10*3/uL (0.0-0.012); NRBC Pct Auto 0.0 /100WBC (0.0-0.2); Platelet Count 177 X10*3/uL (160-400); Red Blood Count 5.18 X10*6/uL (4.60-5.80); White Blood Count 6.2 X10*3/uL (4.8-10.8)
[2025-01-16 09:53] LABS: Alanine Aminotransferase 23 U/L (0-40); Albumin Level 4.1 g/dL (3.5-5.0); Alkaline Phosphatase 150 U/L (39-117); Anion Gap 15 (12-20); Aspartate Amino Transferase 33 U/L (5-37); Blood Urea Nitrogen 15 mg/dL (9-16); Calcium 9.5 mg/dL (8.4-10.2); Carbon Dioxide 25 mmol/L (22-29); Chloride 102 mmol/L (96-108); Creatinine Clr Calc Pharmacy 54.3; Estimated Glomerular Filt Rate > 60; Potassium 3.9 mmol/L (3.3-5.1); Sodium 138 mmol/L (135-145); Total Protein 7.1 g/dL (6.5-8.0)
[2025-01-16 10:00] VITALS: BP 153/69; PULSE 89; RESP 15; TEMP 36.9; O2SAT 100
--- OUTSIDE RECORDS SUMMARY | 2025-01-16 10:29 | XMS_ITS | Clinical Summary ---
Author Organization [facility] Address [address] [place] [address] Care Team Providers Care Quarryman Name Role Phone LennieLoriefrances ESTRADA Primary Care Provider Apple Villatoro DO Unavailable [phone] Allergies Active Allergy Reactions Criticality Noted [...] Admin Instructions . Active Continuous Blood Gluc Senior Clinical Research Associate (FreeStyle Marlen 2 [place]) Device 1 PER YEAR Active Continuous Blood Gluc Sensor (FreeStyle Marlen 2 Sensor) [facility] Admin Instructions . 10/28/2021 Active ibuprofen [...] Metabolic Panel (02/28/2023 1:22 PM EDT) Pathologist [facility] Glucose 409(HH) 65 - 99 mg/dL 02/28/2023 2:17 PM EDT [facility] Comment:Fasting: <100 mg/dL, Non-Fasting: <200 mg/dL (ADA 2005) Blood Urea Nitrogen (BUN) 42(H) 8 - 21 mg/dL 02/28/2023 2:17 PM [facility] Creatinine 1.5(H) 0.5 - 1.3 mg/dL 02/28/2023 2:17 PM [facility] eGFR 51(L) >59 02/28/2023 2:17 PM [facility] Comment:CKD-EPI (2020) in mL /min/1.73 sq meters. Sodium 133(L) 136 - 145 mmol/L 02/28/2023 2:17 PM [facility] Potassium 3.7 3.4 - 5.3 mmol/L 02/28/2023 2:17 PM [facility] Chloride 95(L) 98 - 107 mmol/L 02/28/2023 2:17 PM [facility] CO2 25 22 - 33 mmol/L 02/28/2023 2:17 PM [facility] Calcium 9.7 8.7 - 10.5 mg/dL 02/28/2023 2:17 PM [facility] Alkaline Phosphatase 105 45 - 128 U/L 02/28/2023 2:17 PM [facility] Aspartate Aminotrans (AST) 40 10 - 55 U/L 02/28/2023 2:17 PM [facility] Alanine Aminotrans (ALT) 59(H) 10 - 55 U/L 02/28/2023 2:17 PM [facility] Bilirubin, Total 0.5 0.2 - 1.0 mg/dL 02/28/2023 2:17 PM [facility] Protein, Total 7.7 6.3 - 8.3 g/dL 02/28/2023 2:17 PM [facility] Albumin 4.2 3.4 - 4.8 g/dL 02/28/2023 2:17 PM [facility] BUN/Creatinine Ratio 28(H) 10.0 - 25.0 Ratio 02/28/2023 2:17 PM [facility] Globulin 3.5 1.5 - 3.9 g/dL 02/28/2023 2:17 PM [facility] Albumin/Globulin Ratio 1.2 1.0 - 3.0 Ratio 02/28/2023 2:17 PM [facility] Anion Gap 13 7 - 17 02/28/2023 2:17 PM EDT [facility] Blood specimen (specimen) (Plasma/Serum) 02/28/2023 1:22 PM EDT 02/28/2023 1:48 PM EDT [facility] BLOOD ORDERABLES Final Re sult HOSPITAL LAB See Below [facility] [address] [place] [address] * POCT Microalbumin (02/12/2023 10:37 AM EDT) Microalbumin, POC 10.0 MG/L Creatinine Urine, POC 100.0 MG/DL Microalbumin/Cr eat Ratio, POC <30 MG/G Lot Number [id number] Livery Car Driver Pass Pass Urine 02/12/2023 10:3 7 AM EDT Result [facility] Amor Velasco MD POINT OF CARE TEST [...] EDT 03/06/2018 7:56 AM EDT Radha [facility] [employer] [facility] LAB BLOOD ORDERABLES Final Res ult HOSPITAL LAB from Last 3 Months or Most Recently Relevant to Health Maintenance [place] [address] [address] [place] [address] MEDICARE PART A & B Advance Directives [...] Decision Thoroughly Discussed with: Patient Care Teams Quarryman Relationship Specialty Start Date End Date Laura Hogue APRN [address] [place] [id number] PCP - General Family Medicine 09/04/19 Apple Villatoro DO [address] [place] [address] Reeling And Tubing Machine Operator Cardiovascular Disease 04/12/23
--- OUTSIDE RECORDS SUMMARY | 2025-01-16 10:29 | XMS_ITS | Encounter Summary ---
Author Organization [employer] Address [address] [facility] [address] [place] [address] Care Team Providers Care Combatant Diver Qualified Name Role Phone Brea Maciel MD Primary Care Provider [phone] Reason for Visit * Reason Onset Date Comments chart prep 01/14/2025 Encounter Details Date Type Department Care Team ([facility] Contact Info) Description 01/14/2025 Telephone [facility] [address] [place] [address] Brea Maciel MD [address] [place] [address] chart prep Social History Tobacco Use Types Packs/Day Years [...] encounter Miscellaneous Notes * Telephone Encounter - Mj Velasco [place] - 01/14/2025 3:27 PM EDT Chart Prep Labs: not done Images: done Referrals: complete Vaccines due: Hep A Screenings: colonoscopy Overdue care gaps: SBIRT, SDOH, and PHQ-9 documented in this encounter Plan of Treatment Upcoming Encounters Date Type Department Care Team ([facility] st Contact Info) Description 01/23/2025 2:00 PM EDT Office Visit [facility] [address] [place] [address] Brea Maciel MD [address] [place] [address] 02/09/2025 9:30 AM EDT Office Visit [facility] [address] [place] [address] Brea Maciel MD [address] [place] [address] documented as of this encounter Visit Diagnoses Not on filedocumented in this encounter Additional Health Concerns Assessment Noted Time PHQ-9 Depression Total Score: 0 07/09/19 25 8:57 AM EST documented as of this encounter Care Teams Combatant Diver Qualified Relationship Specialty Start Date End Date Brea Maciel MD [address] [place] [address] PCP - General Family Medicine 09/21/23 Home Care [facility] 10/01/24 documented as of this encounter
--- OUTSIDE RECORDS SUMMARY | 2025-01-16 10:29 | XMS_ITS | Clinical Summary ---
Author Organization [facility] Address [address] [place] [address] Care Team Providers Care Blacksmith Supervisor Name Role Phone Charis Liz Primary Care Provider [phone] William Kaplan MD Unavailable Allergies Active Allergy [...] Information: Site ID: [id number] Name: [facility] Address: [address] [place] [id number] Director: Roly Huerta M.D.,PhD us Robert Martinez MD [facility] LAB ORDERABLES Lin l Result [facility]JACKELINE STEARNS [id number] [place] [id number], [place] from Last 3 Months or Most Recently Relevant to Health Maintenance Insurance [address] [place] [address] MEDICAID [id number] MEDICARE PART A & B Care Teams Blacksmith Supervisor Relationship Specialty Start Date End Date Charis Liz PA [address] [place] [id number] PCP - General Internal Medicine 12/11/18 William Kaplan MD [address] [place] [id number] PCP - Insurance Payer PCP 02/02/23
--- OUTSIDE RECORDS SUMMARY | 2025-01-16 10:29 | XMS_ITS ---
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 Dysphagia 02/06/2024 Anxiety 12/24/2023 Depression 12/24/2023 Diabetes mellitus ([facility] V24, [facility] V28) Hyperlipidemia 12/24/2023 Hypertension 12/24/2023 Hypothyroidism 12/24/2023 Psoriasis 12/24/2023 Continuous leakage of urine 10/05/2023 Polyp of colon 10/05/2023 Renal failure 09/27/2023 Transaminitis 09/27/2023 Chronic midline low back pain without sciatica 0 08/15/2023 Hepatic steatosis 07/24/2023 Lightheadedness 03/01/2023 Stage 3a chronic kidney disease ([facility] V24, [facility] S/[facility] V28) 02/12/2023 Cough 08/26/2019 Suspected COVID-19 virus infection 08/26/2019 Reactive depression 08/26/2019 Lower abdominal pain 08/26/2019 Stage 1 chronic kidney disease 03/05/2018 Vasovagal syncope 03/05/2018 Mixed hyperlipidemia 05/10/2017 Hypothyroidism (acquired) 04/10/2017 Prostate cancer ([facility] V24, [facility] V28) 11/24 Overview (04/18/2024): Last Assessment [...] squamous cell carcin alexy of lower gingiva ([facility] V24, [facility] V28) Treatment Medications Current Day (Day [...]
--- OUTSIDE RECORDS SUMMARY | 2025-01-16 10:30 | XMS_ITS | Patient Health Record ---
Author Organization [facility] enter Address [address] [place] [address] Care Team Providers Care Leak Gang Supervisor Name Role Phone Laura Hogue Primary Care [...] Duration: 999 days Dx I10 Active Pen [place] 3/16 31G X 5 MM use with insulin subcutaneously daily with lantus. E11.22; Duration: 90 days venezuelan labels please Active Gabapentin 400 MG 1 [...] 1 tab(s) Orally qhs; Duration: 90 days venezuelan labels please Unknown Blood Pressure Kit - [...] O nce a day; Duration: 90 days venezuelan labels please 01/09/2020 Active Atorvastatin Calcium 10 MG 1 tablet Orally at bedtime (once a day); Duration: 90 days venezuelan labels please Active Metoprolol Succinate ER 25 [...] Orally twice a day; Duration: 90 days venezuelan labels please Active FreeStyle Marlen 2 [place] - 1 PER YEAR; Duration: 1 Active amLODIPine Besylate 10 MG 1 tablet Orally daily; Duration: 90 days Active Pantoprazole Sodium 40 MG 1 tablet Orally Once a day; Duration: 30 day(s) 08/29/2021 Active Losartan Potassium 100 MG as directed Orally daily; Duration: 90 days venezuelan labels please 02/24/2019 Active Glucometer 1 as directed intradermal tid qac; Duration: 999 days 07/17/2022 Active Chlorthalidone 25 mg 1 tablet in the morning with food Orally Once a day; Duration: 90 days venezuelan labels please Active Sertraline HCl 100 MG 1.5 tablets Orally Once a day; Duration: 90 days Active Immunizations Vaccine Route Administration Date Status Comme nts Tdap Unknown 12/01/2010 Administered ([facility])Status: Com pleted Novel [id number], all formulations Unknown 05/14/2009 Administered ([facility])Status:Com pleted Influenza (split), 3 yrs and above Unknown 05/05/2010 Administered ([facility])Status:Com pleted Influenza (split), 3 yrs and above Unknown 06/09/2010 Administered ([facility])Status:Com pleted Fluarix Quadrivalent IM Intramuscular 03/10/2019 Administe [...] (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 Stress is when someone feels tense, nervous, anxious, or cant sleep at night because their mind is troubled Very much In the past year have you spent more than 2 nights in a row in a skilled nursing, care home, senior care center, or juvenile correctional facility? No Are [...] Peripheral circulatory disorder associated with diabetes mellitus (612382813) Type 2 diabetes mellitus with other circulatory 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s (E11.59) 2015 Active confirmed (Migrated)unc ontrolled sugar level over 200 Problem Hyperglycemia due to type 2 diabetes mellitus (309100005804038) Type 2 diabetes mellitus with hyperglycemia (E11.65) Active confirmed Problem Generalized anxiety disorder (83880962) Generalized anxiety disorder (F41.1) Active confirmed Problem Chronic pain (30480317) Other chronic pain (G89.29) Active confirmed Problem Chronic kidney disease due to hypertension (704810575622513) Hypertensive chronic kidney disease with stage 1 through stage 4 chronic kidney disease, or unspecified chronic kidney disease (I12.9) Active confirmed Problem Localized, primary osteoarthritis of the wrist (740158032) Primary osteoarthritis, 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) Active confirmed Problem Localized, primary osteoarthritis of the hand (383127691) Primary osteoarthritis, right hand (M19.041) Active confirmed Problem Pes planus (04697288) Flat foot [pes planus] (acquired), right foot (M21.41) Active confirmed Problem Pes planus (66303214) Flat foot [pes planus] (acquired), left foot (M21.42) Active confirmed Problem Cervicalgia (33408832) Cervicalgia (M54.2) Active confirmed C2, C4- per X-ray: C/spine loss of lordosis to Kyphosis Disc deg C7-T1 Spondylosis Problem Gastroesophageal reflux disease without esophagitis (179475462) Gastroesophageal reflux disease without esophagitis (K21.9) Active confirmed Problem Vertigo (697777013) Vertigo (R42) Active confirmed Problem Erectile dysfunction (disorder) (713505851) Erectile dysfunction, unspecified erectile dysfunction type (N52.9) Active confirmed Problem Arthritis (4091131) Arthritis (M19.90) Active confirmed Problem Elevated liver enzymes level (512058338) Elevated liver enzymes (R74.8) Active confirmed Problem Depressive disorder (92639606) Depressive disorder (F32.9) Active confirmed Problem History of malignant neoplasm of prostate (858643234) History of prostate cancer (Z85.46) Active confirmed Problem Steatosis of liver (366634049) Hepatic steatosis (K76.0) Active confirmed Problem Enthesopathy (53741547) Right wrist tendonitis (M77.8) Active confirmed Problem Cortical age-related cataract of both eyes (407465096737968) Cortical age-related cataract of both eyes (H25.013) Active confirmed Problem Lumbosacral spondylosis without myelopathy (09715254) 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) Active confirmed Problem Cervical spondylosis without myelopathy (927464803) Spondylosis of cervical region without myelopathy or radiculopathy (M47.812) Active confirmed Problem Chronic kidney disease stage 3 (263170744) Chronic kidney disease, stage III (moderate) (N18.30) Active confirmed Problem Articular cartilage disorder of wrist (363424455) Degenerative TFCC tear, right (M24.131) Active confirmed Problem Diabetic renal disease (765983895) Type 2 diabetes mellitus with diabetic chronic kidney disease (E11.22) Active confirmed High 09/2018, tradjenta removed due to pancreatitis Problem Schizoaffective disorder, depressive type (59176539) Schizoaffective disorder, depressive type (F25.1) Active confirmed med Problem Psoriasis (8463309) Psoriasis (L40.9) Active confirmed med Problem Long-term current use of insulin (645292777) retirement current use of insulin (Z79.4) Active confirmed High Problem Nuclear senile cataract (368227991) Nuclear sclerosis of both eyes (H25.13) Active confirmed med Problem Essential hypertension (63240466) Essential (primary) hypertension (I10) Inactive confirmed 3 rechecked manually 01/06/19, just under goal of 140/90.contin ue current medications. Problem Balanitis (36277041) Balanitis (N48.1) Inactive confirmed Problem Chronic kidney disease stage 3 (disorder) (576666083) Chronic kidney disease, stage III (moderate) (N18.3) Inactive confirmed High [place] physican 08/2016 follows [place] : Stage III renal disease. to see renal in 4 months . DM since 2005 and HTn since 2013--told them I follow his Bs and tellme he sees [facility] center at [facility] Problem Type II diabetes mellitus without 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 (447245984) Encounter for diabetic foot exam (E11.9) Inactive confirmed Problem Primary hypertension (38129612) Primary hypertension (I10) Inactive confirmed Problem Hypothyroidism (94652704) Hypothyroidism, unspecified type (E03.9) Active confirmed Med Problem Hyperlipidaemia (79889560) Hyperlipidemia, unspecified hyperlipidemia type (E78.5) Active confirmed med Problem Presbyopia (75249439) Presbyopia of both eyes (H52.4) Active confirmed [...] - Medicare Replacement Plan [address] [place] [address] [id number] Mushtaq lowryFeliciano Self - patient is the insured [employer] [address] [place], [place] [id number] Mushtaq Jeffsri lowryFeliciano Self - patient is the insured DENTAL Medicaid SECONDARY [address] [place] [address] [id number] Musthaq Jeffsri lowry, Feliciano Self - patient is the insured [facility] Medicare Plans [address] [place] [address] [id number] Mushtaq Jeffsri lowryFeliciano Self - patient is the insured [place] [address] [address] [place] [address] [id number] Mushtaq Ricesuma Feliciano lowry Self [...]
--- OUTSIDE RECORDS SUMMARY | 2025-01-16 10:30 | XMS_ITS | Clinical Summary ---
Author Organization [facility] Address [address] [place] [address] Care Team Providers Care Table Tender Name Role Phone Pcp, Chester Akbar MD Primary Care Provider [phone] Allergies Active Allergy Reactions Criticality Noted Date [...] Recent Progress Patient-Stated? Author Carry glucose tablets [facility] Kimberlyn Coyle, RN Take Novolog 5-10 minutes before each meal [facility] Kimberlyn Coyle, RN Schedule eye exam [facility] Kimberlyn Coyle, RN Check BG TID before breakfast, lunch and dinner and keep log [facility] Kimberlyn Coyle, RN Care Teams Table Tender Relationship Specialty Start Date End Date Pcp, Chester Akbar MD [address] [place] [address] PCP - General Motion Picture Cameraman 08/17/21
--- OUTSIDE RECORDS SUMMARY | 2025-01-16 10:31 | XMS_ITS | Clinical Summary ---
Author Organization [facility] Address [address] [place] [address] Phone Care Team Providers Care Plant Biology Professor Name Role Phone Unavailable Primary Care Provider [...] REPLACEMENT MEDICARE REPLACEMENT MEDICARE REPLACEMENT ALEXSANDER CURRY [id number] Additional Source Comments The information contained in this document represents components of the legal health record. It is not the complete legal health record.[facility]
[2025-01-16 11:59] VITALS: BP 144/73; PULSE 88; RESP 14; TEMP 36.9; O2SAT 100
[2025-01-16 14:00] VITALS: BP 140/70; PULSE 80; RESP 15; TEMP 36.9; O2SAT 100
== END 2025-01-16 16:34 | disposition home or self-care (01) ==
PROVIDERS: Registered Nurse Emergency; Emergency Provider Emergency Medicine; PCP Family Medicine
DX: M79.605 Pain in left leg (principal); M25.562 Pain in left knee; R60.0 Localized edema; E11.9 Type 2 diabetes mellitus without 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s; Z79.4 Long term (current) use of insulin; Z79.899 Other long term (current) drug therapy; Z87.891 Personal history of nicotine dependence
CPT/HCPCS: 36415; 73564; 73700; 80053; 85025; 85652; 86140; 93971; 99283; 99284

== ENCOUNTER → 2025-01-16 09:20 | Outpatient (BNV) | payer OTHER, SELFPAY | PROVIDERS: Emergency Provider Emergency Medicine; PCP Family Medicine; Visit Provider Radiology Diagnostic Radiology | DX: M25.562 Pain in left knee (principal); R22.42 Localized swelling, mass and lump, left lower limb; M11.262 Other chondrocalcinosis, left knee | CPT/HCPCS: 73564; 73700; 93971 ==

== ENCOUNTER 2025-02-06 10:43 | Outpatient (AMB) | payer OTHER, SELFPAY ==
--- NOTE | 2025-02-06 11:35 | A.OFFVIS_ITS ---
Intake Visit Reasons: Phimosis Intake Note: patient presents today for: phimosis urology medications: tamsulosin blood thinners: none today's PVR: 0mls Machine Feed Operator Required: Yes Accompanied by: Self / Same As Patient Allergies No Known Allergies Allergy (Verified 02/06/25 11:38) HPI Comments Details: Feliciano is a pleasant Kazakh-speaking male. He is a patient of . He has seen for the following urologic conditions - prostate cancer - erectile dysfunction associated with prostate cancer and diabetes Last seen in February 2024 Failed to attend three-month follow-up Had phimosis and had been prescribed clotrimazole Failed topical therapy Recommend circumcision Kazakh translation provided in office by qualified biomedical manager Follow-up Trial daily 5 mg tadalafil with on demand 20 mg Partial effect Increase daily dosage to 10 mg UA 2+ leuks Prostate cancer Prostatectomy 2004 Minimal issues with urinary control 10/26 <0.1 Erectile dysfunction Progressive diabetes No prior use medications PFS Medical History (Updated 01/17/25 @ 00:01 by Eleonora Esparza) Hyperlipidemia Anxiety Depression History of prostate cancer Hypothyroidism Psoriasis Type 2 diabetes mellitus without 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, with detention current use of insulin pump Chronic kidney disease Diabetes Hypertension Surgical History History of arthroplasty of knee Hx of radical prostatectomy Social History Household Members: None Housing: Apartment Do you presently have visiting nurse or other home services: No Alcohol intake: former Patient Tobacco Use Status: Former Tobacco user Second Hand Smoke Exposure: No Substance Use Type: Marijuana service: No Review of Systems Const Denies chills and Denies fever(s) Card Reports no additional complaints and Denies syncope Resp Denies cough GI Denies abdominal pain and Denies heartburn Reports as per HPI and Denies change in libido Neuro Denies syncope Psych Denies change in libido Endo Denies change in libido Physical Exam Const General: cooperative, healthy appearing, comfortable and no acute distress Orientation/consciousness: patient oriented x3 HEENT Face and sinus: Yes normal facial exam Mouth: moist mucous membranes Neck Neck: Yes normal visual inspection, Yes full ROM and Yes trachea midline Chest Chest palpation & inspection: normal inspection of the chest Resp Effort & Inspection: normal respiratory effort, able to speak in complete sen tences and no respiratory distress GI Inspection: Yes normal to inspection Back/Spine/Pelvis Cervical Spine: normal cervical lordosis Thoracic/Lumbar Spine: thoracic and lumbar spine normal to inspection Skin General skin exam: no rashes or lesions noted Neuro General: patient oriented x3, gait normal, tone normal and moves all extremities Extrem General: Yes normal to inspection and Yes capillary refill normal Office Procedures Post Void Residual Post Residual Void Post Void Residual (PVR): 0 39096-Eenk Void Residual by ultrasound Results AMB Urinalysis, Automated UA Leukoctes 125 Aris/uL Last Edit by JOEL Green on 02/06/25 11:53 UA Nitrite Negative Last Edit by Lynn Adkins [facility] on 02/06/25 11:53 UA Urobilinogen 0.2 mg/dL Last Edit by Lynn Adkins [facility] on 02/06/25 11:5 3 UA Protein 30 mg/dL Last Edit by Lynn Adkins [facility] on 02/06/25 11:53 UA pH 6.0 Last Edit by Lynn Adkins [facility] on 02/06/25 11:53 UA Blood 0 Cornel/uL Last Edit by Lynn Adkins [facility] on 02/06/25 11:53 UA Specific [place] 1.020 Last Edit by Lynn Adkins [facility] on 02/06/25 11: 53 UA Ketone Negative Last Edit by Lynn Adkins [facility] on 02/06/25 11:53 UA Bilirubin 1 mg/dL Last Edit by Lynn Adkins [facility] on 02/06/25 11:53 UA Glucose 0 mg/dL Last Edit by Lynn Adkins [facility] on 02/06/25 11:53 Assessment & Plan Assessment & Plan (1) Phimosis: Code(s): N47.1 - Phimosis Category: Medical Plan Risks, benefits and alternatives to therapy were discussed. These include but are not limited to infection, bleeding, damage to local organs and tissues, need for further interventions. Anesthetic risks regarding cardiac arrhythmia, blood clots, and potential mortality were discussed. The patient understands the typical recovery time and the outpatient nature of the procedure. After consideration of these risks the patient gives full informed consent and they wish to move ahead with the procedure. - circumcision in setting of diabetes Orders: Orders AMB Post Void Residual by ultrasound Today R39.12 - Poor urinary stream AMB Urinalysis Automated Today Z13.9 - Encounter for screening, unspecified Patient Instructions: This note is constructed using voice recognition software. While every effort has been made to ensure accuracy reinforcement maker errors may have been included. Imaging studies, laboratory and physical exam results were discussed and reviewed in detail. No major barriers to patient understanding were identified. An opportunity to ask questions regarding the treatment plan was provided. All questions were answered. The patient expressed understanding and agreement with the above treatment plan. The patient is aware they should contact our office by phone for worsening of their current condition or the appearance of new urologic symptoms. Compliance is encouraged with any medications and followup testing that is ordered. It is a privilege to participate in the urologic care of your patient. If you have any questions or concerns regarding treatment for the above conditions, or other urologic issues, please do not hesitate to contact me. The office telephone contact is [phone]. Sincerely, Dr Timoteo Richardson MD, [facility] - Urology Compassionate Specialist Care for the Genitourinary System Coding Level of Care Code Est Pt Level 4 (37973) Diagnoses Phimosis N47.1 CPT Codes Post Residual Void - PVR CPT Code: 34953-Qdir Void Residual by ultrasound ([id number])
--- OUTSIDE RECORDS SUMMARY | 2025-02-06 11:42 | XMS_ITS | Encounter Summary ---
Author Organization [facility] Address [address] [place] [address] Care Team Providers Care Commercial Representative Name Role Phone Jaylene Kong MD Primary Care Provider [phone] Charis Liz PA-C Primary Care Provider [phone] Laura Hogue APRN Primary Care Provider [phone] Apple Villatoro DO Unavailable [phone] Encounter Details Date Type Department Care Team (Late st Contact Info) Description 11/25/2015 Scanned Document [address] [id number] Provider, Generic Social History Tobacco Use Types [...] documented as of this encounter Care Teams Commercial Representative Relationship Specialty Start Date End Date Jaylene Kong MD PCP - General Internal Medicine 09/28/15 04/04/17 Charis Liz PA-C PCP - General 04/05/17 09/03/19 Laura Hogue APRN [address] [place] [id number] PCP - General Family Medicine 09/04/19 Apple Villatoro DO [address] [place] [phone] Activities Coordinator Cardiovascular Disease 04/12/23 documented as of this encounter
--- OUTSIDE RECORDS SUMMARY | 2025-02-06 11:42 | XMS_ITS | Clinical Summary ---
Author Organization [facility] Address [address] [place] [address] Care Team Providers Care Rating Examiner Name Role Phone Charis Liz Primary Care Provider [phone] William Kaplan MD Unavailable Allergies Active Allergy [...] Date Last Done Comments CT Colonography 1956 Diabetes: Kidney Health Evaluation 1956 FIT-DNA (Cologuard) 1956 FIT 1956 FOBT 1956 Flex Sigmoidoscopy - 5y 1955 HIV Screening 1955 Medicare Annual Wellness (AWV) 1956 Diabetes: Retinopathy Screening 02/06/1974 Pneumococcal Vaccine, 50+ Years (1 of 1 - PCV) 02/06/2006 Zoster Vaccines (1 of 2) 02/06/2006 Diabetes: Hemoglobin A1C 05/26/2021 021, 04/15/2020, 08/27/2019, Additional history exists COVID-19 Vaccine (3 - season) 2025 10/14/2020, 09/14/2020 Influenza Vaccine (#1) 2025 02/24/2018 Colonoscopy 04/06/2030 04/06/2020 Colorectal Cancer Screening 04/06/2030 DTaP,Tdap,and Td Vaccines (3 - Td or Tdap) 08/18/2031 08/17/2021, 03/05/2018 Hepatitis C Screening Completed 04/09/2019 Diabetes: Urine Microalbumin Discontinued 02/12/2023 HPV Vaccines Aged Out No longer eligi [...] C AB (Q) (04/09/2019 7:37 AM EST) Pathologist Eddie Ramos Hep C AB Nonreactive Nonreactive [facility] Comment: This test is for eligibility determination of Donors of blood and blood components and human cells, tissues, and cellular and tissue based products (HCT/Ps). This test is not intended to be used for routine clinical or routine diagnostic evaluation. 04/09/2019 7:37 AM EST 04/09/2019 7:38 AM EST Narrative Resulting Agency Comment Performing Organization Information: Site ID: [id number] Name: [facility] Address: [address] [place] [id number] Director: Roly Huerta M.D.,PhD us Robert Martinez MD [facility] Lin amalia Result [facility] [address] [place] [phone], [place] from Last 3 Months or Most Recently Relevant to Health Maintenance Insurance [address] [place] [address] MEDICA[id number] MEDIC[place] PART A & B Care Teams Rating Examiner Relationship Specialty Start Date End Date Charis Liz PA [address] [place] [id number] PCP - General Internal Medicine 12/11/18 William Kaplan MD [address] [place] [id number] PCP - Insurance Payer PCP 02/02/23
--- OUTSIDE RECORDS SUMMARY | 2025-02-06 11:42 | XMS_ITS | Clinical Summary ---
Author Organization Formerly [facility] Address [address] [place] [address] Care Team Providers Care Evidence Technician Name Role Phone LennieLoriefrances ESTRADA Primary Care Provider [phone] Apple Villatoro DO Unavailable [phone] Allergies Active Allergy Reactions Criticality Noted [...] Admin Instructions . Active Continuous Blood Gluc Laborer Adjustable Steel Joist (FreeStyle Marlen 2 Parker) Device 1 PER YEAR Active Continuous Blood Gluc Sensor (FreeStyle Marlen 2 Sensor) [facility] [place] Instructions . 10/28/2021 Active ibuprofen [...] Health Maintenance Due Date Last Done Comments Advance Care Planning 1955 Hepatitis C Virus Screening 1955 Foot Exam [...] Comprehensive Metabolic Panel (02/28/2023 1:22 PM EDT) [facility] Glucose 409(HH) 65 - 99 mg/dL 02/28/2023 2:17 PM EDT [facility] Comment:Fasting: <100 mg/dL, Non-Fasting: <200 mg/dL (ADA 2005) Blood Urea Nitrogen (BUN) 42(H) 8 - 21 mg/dL 02/28/2023 2:17 PM [facility] Creatinine 1.5(H) 0.5 - 1.3 mg/dL 02/28/2023 2:17 PM [facility] eGFR 51(L) >59 02/28/2023 2:17 PM [facility] Comment:CKD-EPI (2020) in mL /min/1.73 sq meters. Sodium 133(L) 136 - 145 mmol/L 02/28/2023 2:17 PM [facility] Potassium 3.7 3.4 - 5.3 mmol/L 02/28/2023 2:17 PM [facility] Chloride 95(L) 98 - 107 mmol/L 02/28/2023 2:17 PM [facility] CO2 25 22 - 33 mmol/L 02/28/2023 2:17 PM [facility] Calcium 9.7 8.7 - 10.5 mg/dL 02/28/2023 2:17 PM [facility] Alkaline Phosphatase 105 45 - 128 U/L 02/28/2023 2:17 PM [facility] Aspartate Aminotrans (AST) 40 10 - 55 U/L 02/28/2023 2:17 PM [facility] Alanine Aminotrans (ALT) 59(H) 10 - 55 U/L 02/28/2023 2:17 PM [facility] Bilirubin, Total 0.5 0.2 - 1.0 mg/dL 02/28/2023 2:17 PM [facility] Protein, Total 7.7 6.3 - 8.3 g/dL 02/28/2023 2:17 PM [facility] Albumin 4.2 3.4 - 4.8 g/dL 02/28/2023 2:17 PM [facility] BUN/Creatinine Ratio 28(H) 10.0 - 25.0 Ratio 02/28/2023 2:17 PM [facility] Globulin 3.5 1.5 - 3.9 g/dL 02/28/2023 2:17 PM [facility] Albumin/Globulin Ratio 1.2 1.0 - 3.0 Ratio 02/28/2023 2:17 PM [facility] Anion Gap 13 7 - 17 02/28/2023 2:17 PM EDT [facility] Blood specimen (specimen) (Plasma/Serum) 02/28/2023 1:22 PM EDT 02/28/2023 1:48 PM EDT Result [facility] Fela BELTRE LAB BLOOD ORDERABLES Final Re sult HOSPITAL LAB See Below [facility] [address] [place] [address] * POCT Microalbumin (02/12/2023 10:37 AM EDT) Microalbumin, POC 10.0 MG/L Creatinine Urine, POC 100.0 MG/DL Microalbumin/Cr eat Ratio, POC <30 MG/G Lot Number [id number] Group Home Counselor Pass Pass Urine 02/12/2023 10:3 7 AM EDT Result [facility] Amor Velasco MD POINT OF [...] 7:44 AM EDT 08/27/2019 8:31 AM EDT Result [facility] Jennifer Monterroso MD LAB BLOOD ORDERABLES Final [...] EDT 03/06/2018 7:56 AM EDT Radha Carter SHAPER SETTER LAB BLOOD ORDERABLES Final Res ult HOSPITAL LAB from Last 3 Months or Most Recently Relevant to Health Maintenance Insurance MEDICARE PART A & B Advance Directives [...] Decision Thoroughly Discussed with: Patient Care Teams Evidence Technician Relationship Specialty Start Date End Date Laura Hogue APRN [address] [place] [address] PCP - General Family Medicine 09/04/19 Apple Villatoro DO [address] [place] [address] Counseling Department Chair Cardiovascular Disease 04/12/23
--- OUTSIDE RECORDS SUMMARY | 2025-02-06 11:42 | XMS_ITS | Encounter Summary ---
Author Organization [facility] Address [address] [place] [address] Care Team Providers Care Entry Level Receptionist Name Role Phone Laura oHgue APRN Primary Care Provider Apple Villatoro DO Unavailable [phone] Encounter Details Date Type Department Care Team (Late st Contact Info) Description 03/01/2020 Scanned Document [facility] Colorectal [facility] [place] [address] [place] [address] Laura Hogue APRN [address] [place], [place] [phone] Social History Tobacco Use Types Packs/Day Years [...] documented as of this encounter Care Teams Entry Level Receptionist Relationship Specialty Start Date End Date Laura Hogue APRN [address] [place] [address] PCP - General Family Medicine 09/04/19 Apple Villatoro DO [address] [place] [address] Vp Marketing Cardiovascular Disease 04/12/23 documented as of this encounter
--- OUTSIDE RECORDS SUMMARY | 2025-02-06 11:43 | XMS_ITS | Encounter Summary ---
Author Organization [email or web address] Address [address] [facility] 7[address] [place] [address] Care Team Providers Care Student Nurse Name Role Phone Brea Maciel MD Primary Care Provider [phone] Reason for Visit * Reason Onset Date Comments Reschedule 06/02/2024 Encounter Details Date Type Department Care Team ([facility] Contact Info) Description 06/02/2024 Telephone [facility] MEDICINE [address] [place] [address] Brea Maciel MD [address] [place] [address] Reschedule Social History Tobacco Use Types Packs/Day [...] Care Team (Late st Contact Info) Description 02/09/2025 9:30 AM EDT Office Visit [facility] MED & PEDS [address] [place] [address] Brea Maciel MD [address] [place] [address] documented as of this encounter Visit Diagnoses Not on filedocumented in this encounter Additional Health Concerns Assessment Noted Time PHQ-9 Depression Total Score: 10 024 11:21 AM EDT documented as of this encounter Care Teams Student Nurse Relationship Specialty Start Date End Date Brea Maciel MD [address] [place] [address] PCP - General Family Medicine 09/21/23 [facility] 10/01/24 documented as of this encounter
--- OUTSIDE RECORDS SUMMARY | 2025-02-06 11:43 | XMS_ITS | Clinical Summary ---
Author Organization Formerly [facility] Address [address] [place] [address] Care Team Providers Care Land Development Project Manager Name Role Phone Pcp, Chester Akbar MD Primary Care Provider [phone] Allergies Active Allergy Reactions Criticality Noted Date [...] Recent Progress Patient-Stated? Author Carry glucose tablets [facility] Kimberlyn Coyle, RN Take Novolog 5-10 minutes before each meal [facility] Kimberlyn Coyle, RN Schedule eye exam [facility] Kimberlyn Coyle, RN Check BG TID before breakfast, lunch and dinner and keep log [facility] Kimberlyn Coyle, RN Care Teams Land Development Project Manager Relationship Specialty Start Date End Date Pcp, Chestre Akbar MD [address] [place] [address] PCP - General Mantel Craftsman 08/17/21
--- OUTSIDE RECORDS SUMMARY | 2025-02-06 11:43 | XMS_ITS | Encounter Summary ---
Author Organization [employer] Address [address] [facility] 7t [place] [address] Care Team Providers Care Fitness Manager Name Role Phone Brea Maciel MD Primary Care Provider [phone] Reason for Visit * Reason Comments Med Refill Encounter Details Date Type Department Care Team ([facility] Contact Info) Description 10/16/2024 Refill [facility] MEDICINE [address] [place] [address] Brea Maciel MD [address] [place] [address] Social History Tobacco Use Types Packs/Day Years [...] Description 02/09/2025 9:30 AM EDT Office Visit [facility] [address] [place] [address] Brea Maciel MD [address] [place] [address] documented as of this encounter Visit Diagnoses Not on filedocumented in this encounter Additional Health Concerns Assessment Noted Time PHQ-9 Depression Total Score: 0 07/09/19 25 8:57 AM EST documented as of this encounter Care Teams Fitness Manager Relationship Specialty Start Date End Date Brea Maciel MD [address] [place] [address] PCP - General Family Medicine 09/21/23 Home [facility] 10/01/24 documented as of this encounter
--- OUTSIDE RECORDS SUMMARY | 2025-02-06 11:43 | XMS_ITS | Encounter Summary ---
Author Organization [employer] [facility] Address [address] [facility] 7t [place] [address] Care Team Providers Care Cooky Machine Operator Name Role Phone Brea Maciel MD Primary Care Provider [phone] Reason for Visit * Reason Comments Med Refill Encounter Details Date Type Department Care Team ([facility] Contact Info) Description 07/27/2024 Refill [facility] MED & PEDS [address] [place], [place] [phone] Manjinder Tucker MD [address] [place] [address] Psoriasis Social History Tobacco Use Types Packs/Day [...] Description 02/09/2025 9:30 AM EDT Office Visit [facility] MED [facility] PEDS [address] [place] [address] Brea Maciel MD [address] [place] [address] documented as of this encounter Visit Diagnoses Diagnosis Psoriasis Other psoriasis documented in this encounter Additional Health Concerns Assessment Noted Time PHQ-9 Depression Total Score: 0 07/09/19 8:57 AM EST documented as of this encounter Care Teams Cooky Machine Operator Relationship Specialty Start Date End Date Brea Maciel MD [address] [place] [address] PCP - General Family Medicine 09/21/23 Home [facility] 10/01/24 documented as of this encounter
--- OUTSIDE RECORDS SUMMARY | 2025-02-06 11:43 | XMS_ITS | Clinical Summary ---
Author Organization [facility] Address [address] [place] [address] Phone Care Team Providers Care Horse Show Judge Name Role Phone Brea Maciel MD Primary Care Provider [phone] Allergies No known active allergies Medications dulaglutide [...] FOR PAIN 150 mL 3 5 Active diphenhydrAMINE (BENADRYL) 12.5 mg/5 mL liquid MIX WITH 150 ML lidocaine viscous AND antacid liquid, SHAKE WELL SWISH AND SPIT OUT 5 TO 10 ML EVERY THREE HOURS NEEDED mucositis NEEDED FOR PAIN 150 mL 3 5 Active lidocaine (XYLOCAINE) 2 % solution MIX WITH 150 ML antacid liquid AND timmy-dryl, SHAKE WELL, SWISH AND SPIT OUT 5 TO 10 ML EVERY THREE HOURS NEEDED FOR MUCOSITIS 150 mL 3 5 Active Active Problems Problem Noted Date Diagnosed Date Primary insomnia 04/16/2024 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 Dysphagia 02/06/2024 Anxiety 12/24/2023 Depression 12/24/2023 Diabetes mellitus ([facility] V24, [facility] V28) Hyperlipidemia 12/24/2023 Hypertension 12/24/2023 Hypothyroidism 12/24/2023 Psoriasis 12/24/2023 Continuous leakage of urine 10/05/2023 Polyp of colon 10/05/2023 Renal failure 09/27/2023 Transaminitis 09/27/2023 Chronic midline low back pain without sciatica 0 08/15/2023 Hepatic steatosis 07/24/2023 Lightheadedness 03/01/2023 Stage 3a chronic kidney disease ([facility] V24, [facility] /[facility] V28) 02/12/2023 Cough 08/26/2019 Suspected COVID-19 virus infection 08/26/2019 Reactive depression 08/26/2019 Lower abdominal pain 08/26/2019 Stage 1 chronic kidney disease 03/05/2018 Vasovagal syncope 03/05/2018 Mixed hyperlipidemia 05/10/2017 Hypothyroidism (acquired) 04/10/2017 Prostate cancer ([facility] V24, [facility] V28) 11/24 Overview (04/18/2024): Last Assessment & Plan: Referral to Urologist for further monitoring and treatment. Erectile dysfunction following radical prostatec jonathan 11/25/2015 Obstructive sleep apnea syndrome 08/18/2015 Snoring 06/16/2015 Essential hypertension 06/16/2015 Fatigue due to sleep pattern disturbance 016 Resolved Problems Problem Noted Date Diagnosed Date Resolved Date Oral cancer ([facility] V24, [facility] V28) 04/17/2024 04/24/2024 Encounters Date Type Department Care Team Description 11/12/2024 1:[address] [facility] Occupational Therapy [address] [address] Whitley Richey P, OTR/L Lymphatic edema (Primary Dx) 11/06/2024 4:[address] [facility] Speech Therapy [address] [address] Vaishali Dolan, AUTOMOBILE SALESMAN Dysphagia, oropharyngeal (Primary Dx); Malignant neoplasm of lower gum ([facility] V24, [facility] V28) 11/06/2024 3:[address] [facility] Occupational Therapy [address] [place] [phone] Whitley Richey, OTR/L Lymphatic edema (Primary Dx) from Last 3 Months Immunizations Name Administration [...] History Date Comments Hypertension DX:Hypertension Diabetes mellitus ([facility] V 24, [facility] V28) DX:Diabetes mellitus ([facility]) Obstructive sleep apnea syndrome 08/18/2015 DX:Obstructive sleep apnea syndrome Arthritis DX:Arthritis Depression DX:Depression Chronic kidney disease DX:Chroni c kidney disease Prostate cancer ([facility] V24 , [facility] V28) DX:Prostate cancer ([facility]) Primary insomnia 04/16/2024 Family History [...] 84 08/11/2024 1:24 PM EDT Temperature 37.1 C (98.7 F) 08/11/2024 1:24 PM EDT Respiratory Rate 16 08/06/2024 1:34 PM EST Oxygen Saturation 100% 08/11/2024 1:24 PM EDT Inhaled Oxygen Concentration - - Weight 66.7 kg (147 lb) 08/18/2024 11:00 AM EDT Height 162.6 cm (5' 4 ) 06/12/2024 10:50 AM EST Body Mass Index 25.23 06/12/2024 10:50 AM EST Plan of Treatment Upcoming Encounters Date Type Department Care Team (Late st Contact Info) Description 02/11/2025 1:30 PM EDT Office Visit [facility] Hematology Oncology [address] [place] [phone] Tawana Chang MD [address] [place] [address] 02/26/2025 2:00 PM EDT Appointment [facility] Radiation Oncology [address] [place] [phone] Micaela Sandhu NP [address] [place], [place] [phone] 03/12/2025 2:45 PM EDT Evaluation [facility] [address] [phone] Negra Urias, PT Health Maintenance Due Date Last Done Comments COVID-19 Vaccine (#1) 02/06/1961 Diabetes: Annual Foot Exam 02/06/1966 Diabetes: Annual Retina Eye Exam 02/06/1966 Zoster Vaccines (1 of 2) 02/06/1975 RSV Immunization Adult Patients (1 - Risk 60-74 years 1-dose series) 2016 Abdominal Aortic Aneurysm (AAA) Screen 05/03/2022 Colorectal Cancer Screening: Colonoscopy 05/03/2022 Medicare Annual Wellness Visit 05/03/2022 Social Influencers of Health Screening 05/03/2022 Diabetes: Annual Urine Albumin-Creatinine Ratio (uACR) 02/13/2024 02/12/2023 Depression Screening 06/04/2024 Influenza Vaccine (#1) 2025 02/24/2018 Diabetes: Blood Sugar Control Test (HGBA1C) 02/19/2025 08/19/2024, 07/09/2024, 04/16/2024, Additional history exists Diabetes: Annual GFR (Glomerular Filtration Rate) 08/19/2025 08/19/2024, 07/19/2024, 06/12/2024, Additional history exists Hypertension/CHF/CAD Annual BMP Blood Test 08/19/2025 08/19/2024, 07/19/2024, 06/12/2024, Additional history exists Falls Risk Assessment 10/20/2025 10/20/2024 Cholesterol Screening (Lipid Panel) 08/19/2029 08/19/2024, 09/24/2023, [...] Type Associated Problems Recent Progress Patient-Stated? Author to get rid of the swelling General Yes Whitley Richey P, OTR/L Note: 1: Patient will be able to demo HEP to increase lymph flow 2: Patient will be able to demo self massage 3: Patient will have appropriate compression in place 4: Patient will present with decreased lymph edema in head /neck area ( measurable / visible) 5: Patient will present with decreased fibrosis in face/neck area Patient will present with decreased lymph edema /fibrosis in head and neck area which results in improved speech Procedures Procedure Name Priority Date/Time Associated Diagnosis Comments BASIC METABOLIC PANEL STAT 07/19/2024 12:00 PM EST from Last 3 Months or Most Recently Relevant to Health Maintenance Results * (ABNORMAL) Basic metabolic panel (07/19/2024 12:00 PM EST) Sodium 134 133 - 145 mmol/L LAB CHEMISTRY METHOD 07/19/2024 12:34 PM [facility] Potassium 4.1 3.5 - 5.5 mmol/L LAB CHEMISTRY METHOD 07/19/2024 12:34 PM [facility] Chloride 102 96 - 110 mmol/L LAB CHEMISTRY METHOD 07/19/2024 12:34 PM [facility] CO2 27 21 - 32 mmol/L LAB CHEMISTRY METHOD 07/19/2024 12:34 PM [facility] Anion Gap 5 3 - 11 LAB CHEMISTRY METHOD 07/19/2024 12:34 PM [facility] Glucose 180(H) 70 - 100 mg/dL LAB CHEMISTRY METHOD 07/19/2024 12:34 PM [facility] BUN 14 5 - 25 mg/dL LAB CHEMISTRY METHOD 07/19/2024 12:34 PM [facility] Creatinine 1.13 0.70 - 1.30 mg/dL LAB CHEMISTRY METHOD 07/19/2024 12:34 PM [facility] eGFR 71 >=60 mL/min/1. 73m2 LAB CHEMISTRY METHOD 07/19/2024 12:34 PM [facility] Comment:Calculation based on the Chronic Kidney Disease Epidemiology Collaboration (CKD-EPI) equation refit without adjustment for race. BUN/Creatinine Ratio 12.4 LAB CHEMISTRY METHOD 07/19/2024 12:34 PM EST [facility] Calcium 9.0 8.5 - 10.5 mg/dL LAB CHEMISTRY METHOD 07/19/2024 12:34 PM EST [facility] Blood Venous blood specimen / Unknown Venipuncture / Unknown 07/19/2024 12:00 PM EST 07/19/2024 12:09 PM EST us Enrique Greenwood MD LAB BLOOD ORDERABLES Final Result [facility] [address] [place] [address], [place] [phone] from Last 3 Months or Most Recently Relevant to Health Maintenance [place] [address] [place] [address] MEDICARE Member Subscriber Plan / Payer (Ef fective 2019-Present) Name:LEWIS SANTANA Relation to Subscriber:Self Name:Lewis Santana Payer ID:[id number] Group ID:[id number] Type:Not on file Address: [place] [address] [address] [address] Care Teams Horse Show Judge Relationship Specialty Start Date End Date Brea Maciel MD [address] [place] [address] PCP - General 10/08/23
--- OUTSIDE RECORDS SUMMARY | 2025-02-06 11:43 | XMS_ITS | Encounter Summary ---
Author Organization [employer] [facility] Address [address] [facility] [address]t [place] [address] Care Team Providers Care Machine Tool Designer Name Role Phone Brea Maciel MD Primary Care Provider [phone] Reason for Visit * Reason Onset Date Comments FYI 08/06/2024 Encounter Details Date Type Department Care Team ([facility] Contact Info) Description 08/06/2024 Telephone [facility] MEDICINE [address] [place] [address] Brea Maciel MD [address] [place] [address] FYI Social History Tobacco Use Types Packs/Day [...] 4:45 PM EST Tc from [facility] (Rehab Camera Technician) calling in stating that they are discharging pt from speech therapy today. (08/06/2024) documented in this encounter Plan of Treatment Upcoming Encounters Date Type Department Care Team (Late st Contact Info) Description 02/09/2025 9:30 AM EDT Office Visit [facility] CHC MED & PEDS [address] [place] [address] Brea Maciel MD [address] [place] [address] documented as of this encounter Visit Diagnoses Not on filedocumented in this encounter Additional Health Concerns Assessment Noted Time PHQ-9 Depression Total Score: 0 07/09/19 8:57 AM EST documented as of this encounter Care Teams Machine Tool Designer Relationship Specialty Start Date End Date Brea Maciel MD [address] [place] [address] PCP - General Family Medicine 09/21/23 Home Care [facility] 10/01/24 documented as of this encounter
--- OUTSIDE RECORDS SUMMARY | 2025-02-06 11:43 | XMS_ITS | Clinical Summary ---
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 LT 4V Accession Number(s): [id number] cc: Emani Cervantes NP; Brea Maciel MD EXAMINATION: XR KNEE 4 OR MORE VIEWS LEFT HISTORY: pain and swelling COMPARISON: Comparison is made with the prior examination dated 07/24/2023. FINDINGS: Four views of the left knee are submitted. Osseous mineralization is normal. The patient is status post partial resection of the fibula.. There is no fracture or dislocation. The joint spaces are preserved. There is chondrocalcinosis. There are vascular calcifications. There is no joint effusion. XR/XR knee LT 4V IMPRESSION: Status post partial resection of the fibula. Chondrocalcinosis. Electronically signed by: Leopoldo Veliz MD 01/16/2025 10:27 AM EDT Dictated By: Leopoldo Veliz MD Signed By: <Electronically signed by Leopoldo Veliz MD in OV> 01/16/25 1027 DD/ 0913 TD/TT: 01/16/25 1021 Automatic Wheel Line Operator: Procedure Note Donotuseinterpreter, Image - 01/16/[address] [address] XRay Report Signed Patient: Feliciano SantanaMR#: M [id number] : 1955cct:[id number] Age/Sex: 69 / MADM Date: 01/16/25 Loc: HO.ED Attending Dr: Ordering Physician: Emani Cervantes NP Date of Service: 01/16/25 Procedure(s): XR knee LT 4V Accession Number(s): [id number] cc: Emani Cervantes AUTOMATIC FANCY MACHINE OPERATOR; Brea Maciel MD EXAMINATION: XR KNEE 4 OR MORE VIEWS LEFT HISTORY: pain and swelling COMPARISON: Comparison is made with the prior examination dated 07/24/2023. FINDINGS: Four views of the left knee are submitted. Osseous mineralization is normal. The patient is status post partial resection of the fibula.. There is no fracture or dislocation. The joint spaces are preserved. There is chondrocalcinosis. There are vascular calcifications. There is no joint effusion. XR/XR knee LT 4V IMPRESSION: Status post partial resection of the fibula. Chondrocalcinosis. Electronically signed by: Leopoldo Veliz MD 01/16/2025 10:27 AM EDT Dictated By: Leopoldo Veliz MD Signed By: <Electronically signed by Leopoldo Veliz MD in OV> 01/16/25 1027 DD/ 0913 TD/TT: 01/16/25 1021 Automatic Wheel Line Operator: [facility] External Provider IMG XR PROCEDURES Final Result * (ABNORMAL) POCT HGB A1C (12/26/2024 10:35 AM EDT) Hemoglobin A1C 9.9(A) 4.0 - 5.7 % QC Media Lot # [id number] Lot# Expiration Date Blood 12/26/2024 10:3 5 AM EDT Brea Maciel MD POINT OF CARE TEST ENTER/EDIT ORDERABLES Edited Result - Final * CT Head for ICH (12/13/2024 5:54 PM EDT) Anatomical Region Laterality Modality Head, Neck Computed Tomogra phy 12/13/2024 5:54 PM EDT Narrative 12/13/2024 5:56 PM EDT [address] [address] [address] Scan Report Signed Patient: Feliciano Santana MR#: [id number] : 1955 Acct:[id number] Age/Sex: 69 / M ADM Date: 12/13/24 Loc: HO.ED Attending Dr: Ordering Physician: Francisca Martinez PA-C Date of Service: 12/13/24 Procedure(s): CT Head for ICH Accession Number(s): [id number] cc: Francisca Martinez PA-C; Brea Maciel MD Report Number: [id number]: Total DLP = 687.00 mGy-cm CLINICAL HISTORY: worse headache of life CT head without contrast Comparison: CT/SR - CT HEAD/BRAIN WO IV CON - 03/12/23 18:31 EDT Findings: No intra-axial mass, midline shift, hydrocephalus, or acute hemorrhage. Mild cerebral atrophy. The visualized paranasal sinuses and mastoid air cells are normal. The orbits are within normal limits. No skull fracture. IMPRESSION: 1. No acute intracranial findings. This document has been electronically signed by: Abimael Montano MD on 12/13/2024 17:54:46 Dictated By: Abimael Montano MD Signed By: <Electronically signed by Abimael Montano MD in OV> 12/13/241754 DD/ 53 TD/TT: 12/13/241753 Automatic Wheel Line Operator: Procedure Note Donotuseinterpreter, Image - 12/15/[address] [address] [address] Scan Report Signed Patient: Feliciano SantanaMR#: M [id number] : 1955cct:[id number] Age/Sex: 69 / MADM Date: 12/13/24 Loc: HO.ED Attending Dr: Ordering Physician: Francisca Martinez PA-C Date of Service: 12/13/24 Procedure(s): CT Head for ICH Accession Number(s): [id number] cc: Francisca Martinez PA-C; Brea Maciel MD Report Number: [id number]: Total DLP = 687.00 mGy-cm CLINICAL HISTORY: worse headache of life CT head without contrast Comparison: CT/SR - CT HEAD/BRAIN WO IV CON - 03/12/23 18:31 EDT Findings: No intra-axial mass, midline shift, hydrocephalus, or acute hemorrhage. Mild cerebral atrophy. The visualized paranasal sinuses and mastoid air cells are normal. The orbits are within normal limits. No skull fracture. IMPRESSION: 1. No acute intracranial findings. This document has been electronically signed by: Abimael Montano MD on 12/13/2024 17:54:46 Dictated By: Abimael Montano MD Signed By: <Electronically signed by Abimael Montano MD in OV> 12/13/241754 DD/ 53 TD/TT: 12/13/241753 Automatic Wheel Line Operator: [facility] External Provider IMG CT PROCEDURES Edited Result - Final * (ABNORMAL) Comprehensive Metabolic Panel, Fasting (12/13/2024 5:14 PM EDT) Sodium 136 135 - 145 mmol/L [facility] Potassium 4.0 3.3 - 5.1 mmol/L [facility] Chloride 104 96 - 108 mmol/L [facility] Carbon Dioxide 23 22 - 29 mmol/L [facility] Anion Gap 13 12 - 20 [facility] Urea Nitrogen (BUN) 17(H) 9 - 16 mg/dL [facility] Creatinine, Serum 1.05 0.5 - 1.4 mg/dL [facility] Creatinine Clr Calc Pharmacy 56.3 [facility] Comment:eGFR (calculated fro m the MDRD study equation) and eCrCl(calculated from the Cockcroft-Gault equation) are based ondifferent parameters and may not yield comparable results.If eCrCl result is absurd, please check patient'sheight/weight. Estimated Glomerular Filt Rate >60 [facility] Comment:Chronic Kidney Disea se: Estimated GFR < 60 mL/min/1.23z6Tccrye Kidney Disease: Estimated GFR < 15 mL/min/1.73m2 Glucose Fasting 241(H) 60 - 99 mg/dL [facility] Comment:A fasting glucose of 126 mg/dl or greater on more than oneoccasion is considered diagnostic of diabetes. Calcium 9.3 8.4 - 10.2 mg/dL [facility] Bilirubin, Total 0.5 0.0 - 1.0 mg/dL [facility] Aspartate Amino Transferase 26 5 - 37 U/L [facility] Alanine Aminotransferase 21 0 - 40 U/L [facility] Total Protein 6.9 6.5 - 8.0 g/dL [facility] Albumin Level 3.8 3.5 - 5.0 g/dL [facility] Alkaline Phosphatase 133(H) 39 - 117 U/L [facility] 12/13/2024 5:14 PM EDT 12/13/2024 5:16 PM EDT us Generic External Data Provider LAB BLOOD ORDERAB LES Final Result [facility] [address] [place] [phone] * SARS-CoV-2 RNA, Influenza A/B, and RSV RNA, Ql NAAT (12/13/2024 5:14 PM EDT) Influenza A PCR NEGATIVE Negative [facility] Influenza B PCR NEGATIVE Negative [facility] Resp Syncy Virus RNA Qual PCR NEGATIVE Negative [facility] SARS COV2 PCR NEGATIVE Negative [facility] Comment:All test results mus t be correlated with clinical findings.Negative results do not preclude SARS-CoV2, influenza Avirus, influenza B virus and/or RSV infectionand should not be used as the sole basis for treatment orother patient management decisions. Negative results must becombined with clinical observations, patient history, andepidemiological information.This test has not been evaluated for monitoring treatment ofinfection.This test has been authorized by the FDA under an EmergencyUse Authorization (EUA) for use by authorized laboratories.Testing performed on the Cepheid GeneXpert utilizingreal-time RT-PCR.All SARS CoV2 and positive influenza A/B results arereported to [facility]. 12/13/2024 5:14 PM EDT 12/13/2024 5:16 PM EDT Generic External Data Provider LAB MICROBIOLOGY - GENERAL ORDERABLES Final Result Performing Organization Address [facility] de Phone Number [facility] [address] [place] [phone] * (ABNORMAL) Protein Creatinine Ratio, Urine (09/29/2024 8:05 AM EDT) Creatinine, Urine 321.88 mg/dL [facility] Protein, Total, Random Urine 156(H) <12 mg/dL [facility] Protein/Creati nine Ratio, Ur 0.48(H) <0.2 [facility] Comment:The spot urine prote in:creatinine ratio may increase to 0.3during normal . 09/29/2024 8:05 AM EDT 09/29/2024 8:26 AM EDT Generic External Data Provider LAB URINE ORDERAB LES Final Result Performing Organization Address [facility] de Phone Number [facility] [address] [place] [phone] * (ABNORMAL) Lipid Panel, Standard (08/19/2024 2:02 PM EDT) Triglycerides 137 <150 mg/dL [facility] Comment:Desirable Triglyceri de: less than 150 mg/dLBorderline High Triglyceride 150-199 mg/dLHigh Triglyceride: 200-499 mg/dLVery High Triglyceride: greater than or equal to 5OO mg/dL Cholesterol 180 <200 mg/dL [facility] Comment:Desirable Cholestero l: less than 200 mg/dLBorderline High Cholesterol: 200-239 mg/dLHigh Cholesterol: greater than 239 mg/dL LDL Cholesterol Calculated 106(H) <100 mg/dL [facility] Comment:Desirable LDL: less than 100 mg/dLNear Optimal/Above Optimal LDL: 110- 129 mg/dLBorderline High LDL: 130-159 mg/dLHigh LDL: 160-189 mg/dLVery High LDL: greater than or equal to 190 mg/dL HDL Cholesterol 47 >40 mg/dL [facility] Comment:Desirable HDL: great er than 40 mg/dL Note: This HDL assay may give artificially low results in patients with liver disease. Blood Venous blood specimen / Unknown 08/19/2024 2:02 PM EDT 08/19/2024 6:34 PM EDT us Santosh Reyes MD LAB BLOOD ORDERABL ES Final Result Performing Organization Address [facility] Co de Phone Number [facility] [address] [place] [address] [phone] * Hepatitis C Antibody with Reflex to HCV, RNA, Quantitative, Real-Time PCR (09/24/2023 8:28 AM EDT) Hepatitis C Antibody Nonreactive Nonreactive [facility] Comment:Antibodies to HCV no t detected; does not exclude early acuteHCV infection. Blood Venous blood specimen / Unknown 09/24/2023 8:28 AM EDT 09/24/2023 2:45 PM EDT us Brea Maciel MD LAB BLOOD ORDERABLES Final Re sult Performing Organization Address City/[facility]/ZIP Co de Phone Number [facility] [address] [place] [address] [phone] from Last 3 Months or Most Recently Relevant to Health Maintenance Insurance [employer] OPT[employer] (HMO D-SNP) [facility] Care Teams Electrician Relationship Specialty Start Date End Date Brea Maciel MD [address] [place] [address] PCP - General Family Medicine 09/21/23 [facility] 10/01/24
--- OUTSIDE RECORDS SUMMARY | 2025-02-06 11:43 | XMS_ITS | Encounter Summary ---
Author Organization [employer] Address [address] [facility] [address] [place] [address] Care Team Providers Care Senior Web Analyst Name Role Phone Brea Maciel MD Primary Care Provider [phone] Encounter Details Date Type Department Care Team ([facility] Contact Info) Description 07/22/2024 Orders Only [facility] [address] [place] [address] Provider, MD Hoa Social History Tobacco Use [...] Upcoming Encounters Date Type Department Care Team ([facility] st Contact Info) Description 02/09/2025 9:30 AM EDT Office Visit [facility] [address] [place] [address] Brea Maciel MD [address] [place] [address] documented as of this encounter Procedures Procedure [...] as of this encounter Care Teams Senior Web Analyst Relationship Specialty Start Date End Date Brea Maciel MD [address] [place] [address] PCP - General Family Medicine 09/21/23 [facility] 10/01/24 documented as of this encounter
--- OUTSIDE RECORDS SUMMARY | 2025-02-06 11:43 | XMS_ITS | Patient Health Record ---
Author Organization [facility] Address [address] [place] [address] Care Team Providers Care Wharf Operator Name Role Phone Laura Hogue Primary Care Provider [phone] Allergies Allergen (clinical drug ingredient) Drug/Non Drug [...] Duration: 999 days Dx I10 Active Pen Leslie 3/16 31G X 5 MM use with insulin subcutaneously daily with lantus. E11.22; Duration: 90 days uzbek labels please Active Gabapentin 400 MG 1 [...] 1 tab(s) Orally qhs; Duration: 90 days uzbek labels please Unknown Blood Pressure Kit - [...] O nce a day; Duration: 90 days uzbek labels please 01/09/2020 Active Atorvastatin Calcium 10 MG 1 tablet Orally at bedtime (once a day); Duration: 90 days uzbek labels please Active Metoprolol Succinate ER 25 [...] Orally twice a day; Duration: 90 days uzbek labels please Active FreeStyle Marlen 2 [place] - 1 PER YEAR; Duration: 1 Active amLODIPine Besylate 10 MG 1 tablet Orally daily; Duration: 90 days Active Pantoprazole Sodium 40 MG 1 tablet Orally Once a day; Duration: 30 day(s) 08/29/2021 Active Losartan Potassium 100 MG as directed Orally daily; Duration: 90 days uzbek labels please 02/24/2019 Active Glucometer 1 as directed intradermal tid qac; Duration: 999 days 07/17/2022 Active Chlorthalidone 25 mg 1 tablet in the morning with food Orally Once a day; Duration: 90 days uzbek labels please Active Sertraline HCl 100 MG [...] 3 yrs and above Unknown 05/05/2010 Administered ([facility])Status:Com pleted Influenza (split), 3 yrs and above Unknown 06/09/2010 Administered ([facility])Status:Com pleted Novel [id number], all formulations Unknown 05/14/2009 Administered ([facility])Status:Com pleted Tdap Unknown 12/01/2010 Administered ([facility])Status: Com pleted Social History Tobacco Use: Social [...] with others, in a hotel, in a custodial, living outside on the street, on a beach, or in a park) Are you worried about losing your housing? No What is the highest level of school that you have finished? High school diploma or GED What is your current work situation? Otherwise unemployed but not seeking work (ex. 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 Stress is when someone feels tense, nervous, anxious, or cant sleep at night because their mind is troubled Very much In the past year have you spent more than 2 nights in a row in a long term, fdc, half-way center, or juvenile correctional facility? No [...] Peripheral circulatory disorder associated with diabetes mellitus (783209358) Type 2 diabetes mellitus with other circulatory 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s (E11.59) 2015 Active confirmed (Migrated)unc ontrolled sugar level over 200 Problem Hyperglycemia due to type 2 diabetes mellitus (980679774977739) Type 2 diabetes mellitus with hyperglycemia (E11.65) Active confirmed Problem Generalized anxiety disorder (98751861) Generalized anxiety disorder (F41.1) Active confirmed Problem Chronic pain (38858980) Other chronic pain (G89.29) Active confirmed Problem Chronic kidney disease due to hypertension (752752738899679) Hypertensive chronic kidney disease with stage 1 through stage 4 chronic kidney disease, or unspecified chronic kidney disease (I12.9) Active confirmed Problem Localized, primary osteoarthritis of the wrist (717813701) Primary osteoarthritis, 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) Active confirmed Problem Localized, primary osteoarthritis of the hand (577349114) Primary osteoarthritis, right hand (M19.041) Active confirmed Problem Pes planus (43796375) Flat foot [pes planus] (acquired), right foot (M21.41) Active confirmed Problem Pes planus (73580343) Flat foot [pes planus] (acquired), left foot (M21.42) Active confirmed Problem Cervicalgia (96883640) Cervicalgia (M54.2) Active confirmed C2, C4- per X-ray: C/spine loss of lordosis to Kyphosis Disc deg C7-T1 Spondylosis Problem Gastroesophageal reflux disease without esophagitis (512383951) Gastroesophageal reflux disease without esophagitis (K21.9) Active confirmed Problem Vertigo (760606935) Vertigo (R42) Active confirmed Problem Erectile dysfunction (disorder) (815652909) Erectile dysfunction, unspecified erectile dysfunction type (N52.9) Active confirmed Problem Arthritis (0784459) Arthritis (M19.90) Active confirmed Problem Elevated liver enzymes level (770706228) Elevated liver enzymes (R74.8) Active confirmed Problem Depressive disorder (54351543) Depressive disorder (F32.9) Active confirmed Problem History of malignant neoplasm of prostate (934577462) History of prostate cancer (Z85.46) Active confirmed Problem Steatosis of liver (832657284) Hepatic steatosis (K76.0) Active confirmed Problem Enthesopathy (41922390) Right wrist tendonitis (M77.8) Active confirmed Problem Cortical age-related cataract of both eyes (297002202559029) Cortical age-related cataract of both eyes (H25.013) Active confirmed Problem Lumbosacral spondylosis without myelopathy (18628576) 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) Active confirmed Problem Cervical spondylosis without myelopathy (815277651) Spondylosis of cervical region without myelopathy or radiculopathy (M47.812) Active confirmed Problem Chronic kidney disease stage 3 (609036537) Chronic kidney disease, stage III (moderate) (N18.30) Active confirmed Problem Articular cartilage disorder of wrist (149296565) Degenerative TFCC tear, right (M24.131) Active confirmed Problem Diabetic renal disease (646930579) Type 2 diabetes mellitus with diabetic chronic kidney disease (E11.22) Active confirmed High 09/2018, tradjenta removed due to pancreatitis Problem Schizoaffective disorder, depressive type (92285270) Schizoaffective disorder, depressive type (F25.1) Active confirmed med Problem Psoriasis (8391547) Psoriasis (L40.9) Active confirmed med Problem Long-term current use of insulin (232803780) care home current use of insulin (Z79.4) Active confirmed High Problem Nuclear senile cataract (214385855) Nuclear sclerosis of both eyes (H25.13) Active confirmed med Problem Essential hypertension (45284329) Essential (primary) hypertension (I10) Inactive confirmed 3 rechecked manually 01/06/19, just under goal of 140/90.contin ue current medications. Problem Balanitis (73694760) Balanitis (N48.1) Inactive confirmed Problem Chronic kidney disease stage 3 (disorder) (940880639) Chronic kidney disease, stage III (moderate) (N18.3) Inactive confirmed High [place] physican 08/2016 follows [place] : Stage III renal disease. to see renal in 4 months . DM since 2005 and HTn since 2013--told them I follow his Bs and tellme he sees Diabetic center at [facility] Problem Type II diabetes mellitus without 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 (818929985) Encounter for diabetic foot exam (E11.9) Inactive confirmed Problem Primary hypertension (22997153) Primary hypertension (I10) Inactive confirmed Problem Hypothyroidism (28717720) Hypothyroidism, unspecified type (E03.9) Active confirmed Med Problem Hyperlipidaemia (20476301) Hyperlipidemia, unspecified hyperlipidemia type (E78.5) Active confirmed med Problem Presbyopia (22500122) Presbyopia of both eyes (H52.4) Active confirmed [...] - Medicare Replacement Plan [address] [place] [address] [id number] Mushtaq lowryFeliciano Self - patient is the insured [employer] [address] [place], [place] [id number] Mushtaq Jeffsri lowryFeliciano Self - patient is the insured D[employer] SECONDARY [address] [place] [address] [id number] Mushtaq Jeffsri lowry, Feliciano Self - patient is the insured [facility] Medicare Plans [address] [place] [address] [id number] Mushtaq Jeffsri lowryFeliciano Self - patient is the insured DENT[place] [address] [address] [place] [address] [id number] Mushtaq Ricesuma Feliciano lowry Self [...]
--- OUTSIDE RECORDS SUMMARY | 2025-02-06 11:43 | XMS_ITS ---
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 Dysphagia 02/06/2024 Anxiety 12/24/2023 Depression 12/24/2023 Diabetes mellitus ([facility] V24, [facility] V28) Hyperlipidemia 12/24/2023 Hypertension 12/24/2023 Hypothyroidism 12/24/2023 Psoriasis 12/24/2023 Continuous leakage of urine 10/05/2023 Polyp of colon 10/05/2023 Renal failure 09/27/2023 Transaminitis 09/27/2023 Chronic midline low back pain without sciatica 0 08/15/2023 Hepatic steatosis 07/24/2023 Lightheadedness 03/01/2023 Stage 3a chronic kidney disease ([facility] V24, [facility] V28) 02/12/2023 Cough 08/26/2019 Suspected COVID-19 virus infection 08/26/2019 Reactive depression 08/26/2019 Lower abdominal pain 08/26/2019 Stage 1 chronic kidney disease 03/05/2018 Vasovagal syncope 03/05/2018 Mixed hyperlipidemia 05/10/2017 Hypothyroidism (acquired) 04/10/2017 Prostate cancer ([facility] V24, [facility] V28) 11/24 Overview (04/18/2024): Last [...] lower gingiva ([facility] V24, [facility] V28) Treatment Medications Current Day [...]
--- OUTSIDE RECORDS SUMMARY | 2025-02-06 11:44 | XMS_ITS | Encounter Summary ---
Author Organization [employer] Address 75 [facility] 7t [place] [address] Care Team Providers Care Environmental Compliance Manager Name Role Phone Brea Maciel MD Primary Care Provider [phone] Reason for Visit * Reason Onset Date Comments chart prep 02/03/2025 Encounter Details Date Type Department Care Team ([facility] st Contact Info) Description 02/03/2025 Telephone [facility] CHC MED & PEDS [address] [place] [address] Brea Maciel MD [address] [place] [address] chart prep Social History Tobacco Use Types [...] Telephone Encounter - Mj Velasco [place] - 02/03/2025 1:55 PM EDT Chart Prep Labs: not done Images: done Referrals: complete Vaccines due: Hep B, RSV, and Zoster Screenings: colonoscopy Overdue care gaps: PHQ-9 and Disability screen documented in this encounter Plan of Treatment Upcoming Encounters Date Type Department Care Team ([facility] st Contact Info) Description 02/09/2025 9:30 AM EDT Office Visit [facility] CHC MED & PEDS [address] [place] [address] Brea Maciel MD [address] [place] [address] documented as of this encounter Visit Diagnoses Not on filedocumented in this encounter Additional Health Concerns Assessment Noted Time PHQ-9 Depression Total Score: 0 07/09/19 25 8:57 AM EST documented as of this encounter Care Teams Environmental Compliance Manager Relationship Specialty Start Date End Date Brea Maciel MD [address] [place] [phone] PCP - General Family Medicine 09/21/23 [facility] 10/01/24 documented as of this encounter
--- OUTSIDE RECORDS SUMMARY | 2025-02-06 11:44 | XMS_ITS | Encounter Summary ---
Author Organization [employer] Address 75 [facility] 7t [place] [address] Care Team Providers Care It Training Specialist Name Role Phone Brea Maciel MD Primary Care Provider [phone] Reason for Visit * Reason Comments Med Refill Encounter Details Date Type Department Care Team ([facility] Contact Info) Description 05/01/[address] [facility] CHC MED & PEDS [address] [place], [place] [address] Manjinder Tucker MD 505 [place] [address] Psoriasis Social History Tobacco Use Types Packs/Day [...] Description 02/09/2025 9:30 AM EDT Office Visit [facility] MED & PEDS 505 [place] [address] Brea Maciel MD 505 [place] [address] documented as of this encounter Visit Diagnoses Diagnosis Psoriasis Other psoriasis documented in this encounter Additional Health Concerns Assessment Noted Time PHQ-9 Depression Total Score: 10 024 11:21 AM EDT documented as of this encounter Care Teams It Training Specialist Relationship Specialty Start Date End Date Brea Maciel MD [address] [place] [address] PCP - General Family Medicine 09/21/23 [facility] 10/01/24 documented as of this encounter
--- OUTSIDE RECORDS SUMMARY | 2025-02-06 11:44 | XMS_ITS | Encounter Summary ---
Author Organization [facility] Address [address] [place] [address] Care Team Providers Care Care Team Coordinator Scheduler Name Role Phone LennieLoriefrances ESTRADA Primary Care Provider [phone] Apple Villatoro DO Unavailable [phone] Encounter Details Date Type Department Care Team (Late st Contact Info) Description 08/31/2022 Scanned Document [facility] 10 [facility] [address] [place] [phone] Shabnam Merrill MD [address] [place] [address] Social History Tobacco Use Types Packs/Day Years [...] documented as of this encounter Care Teams Care Team Coordinator Scheduler Relationship Specialty Start Date End Date Laura Hogue APRN [address] [place] [address] PCP - General Family Medicine 09/04/19 Apple Villatoro DO [address] [place] [address] Wire Stripper Cardiovascular Disease 04/12/23 documented as of this encounter
--- OUTSIDE RECORDS SUMMARY | 2025-02-06 11:44 | XMS_ITS | Encounter Summary ---
Author Organization [email or web address] Address 75 [facility] 7t [place] [address] Care Team Providers Care Acute Care Physical Therapist Name Role Phone Brea Maciel MD Primary Care Provider [phone] Encounter Details Date Type Department Care Team (Late Contact Info) Description 07/24/2023 Orders Only [facility] [address] [place] [address] Shawn Mendez MD [address] [place] [address] Social History Tobacco Use Types Packs/Day Years [...] Description 02/09/2025 9:30 AM EDT Office Visit [facility] CHC MED & PEDS 505 [place] [address] Brea Maciel MD 505 [place], [place] [phone] documented as of this encounter Visit Diagnoses Not on filedocumented in this encounter Care Teams Acute Care Physical Therapist Relationship Specialty Start Date End Date Brea Maciel MD [address] [place] [address] PCP - General Family Medicine 09/21/23 Home [facility] 10/01/24 documented as of this encounter
--- OUTSIDE RECORDS SUMMARY | 2025-02-06 11:44 | XMS_ITS | Encounter Summary ---
Author Organization [employer] Address [address] [facility] [address] 7t [place] [address] Care Team Providers Care Foam Caster Name Role Phone Brea Maciel MD Primary Care Provider [phone] Encounter Details Date Type Department Care Team ([facility] st Contact Info) Description 02/15/2024 Telephone [facility] MEDICINE 230 [place] [address] Brea Maciel MD [address] [place], [place] [phone] Social History Tobacco Use Types Packs/Day Years [...] Upcoming Encounters Date Type Department Care Team ([facility] st Contact Info) Description 02/09/2025 9:30 AM EDT Office Visit [facility] CHC MED & PEDS 505 [place] [address] Brea Maciel MD 505 [place] [address] documented as of this encounter Visit Diagnoses Not on filedocumented in this encounter Additional Health Concerns Assessment Noted Time PHQ-9 Depression Total Score: 10 024 11:21 AM EDT documented as of this encounter Care Teams Foam Caster Relationship Specialty Start Date End Date Brea Maciel MD 230 [place] [address] PCP - General Family Medicine 09/21/23 Home [facility] 10/01/24 documented as of this encounter
--- OUTSIDE RECORDS SUMMARY | 2025-02-06 11:44 | XMS_ITS | Encounter Summary ---
Author Organization [employer] Address 75 [facility] 7t [place] [address] Care Team Providers Care Plumber Gasfitter Name Role Phone Brea Maciel MD Primary Care Provider [phone] Reason for Visit * Reason Onset Date Comments Durable Medical Equipment 04/11/2024 Encounter Details Date Type Department Care Team ([facility] st Contact Info) Description 04/11/2024 Telephone [facility] MEDICINE 230 [place] [address] Brae Maicel MD 505 [place] [address] Durable Medical Equipment Social History Tobacco Use [...] - 04/11/2024 3:09 PM EST Tc from [facility] ([facility]) requesting DME supply for pt Shower Chair, Race toilet seat with hand rest, walker with seat . Callback number [phone] documented in this encounter Plan of Treatment Upcoming Encounters Date Type Department Care Team (Late st Contact Info) Description 02/09/2025 9:30 AM EDT Office Visit [facility] CHC MED & PEDS [address] [place] [address] Brea Maciel MD 505 [place] [address] documented as of this encounter Visit Diagnoses Not on filedocumented in this encounter Additional Health Concerns Assessment Noted Time PHQ-9 Depression Total Score: 10 024 11:21 AM EDT documented as of this encounter Care Teams Plumber Gasfitter Relationship Specialty Start Date End Date Brea Maciel MD [address] [place] [address] PCP - General Family Medicine 09/21/23 [facility] 10/01/24 documented as of this encounter
--- OUTSIDE RECORDS SUMMARY | 2025-02-06 11:44 | XMS_ITS | Encounter Summary ---
Author Organization [facility] Address [address] [place] [address] Care Team Providers Care Wall Taper Helper Name Role Phone Laura Hogue APRN Primary Care Provider [phone] Apple Villatoro DO Unavailable [phone] Encounter Details Date Type Department Care Team (Late st Contact Info) Description 03/08/2023 Scanned Document [address] [place] [phone] Provider, Generic Social History Tobacco Use Types [...] on filedocumented in this encounter Care Teams Wall Taper Helper Relationship Specialty Start Date End Date Laura Hogue APRN [address] [place] [address] PCP - General Family Medicine 09/04/19 Apple Villatoro DO [address] [place] [address] Digital Design Engineer Cardiovascular Disease 04/12/23 documented as of this encounter
--- OUTSIDE RECORDS SUMMARY | 2025-02-06 11:44 | XMS_ITS | Encounter Summary ---
Author Organization [employer] Address 75 [facility] 7t [place] [address] Care Team Providers Care Ornamental Bronze Worker Name Role Phone Brea Maciel MD Primary Care Provider [phone] Reason for Visit * Reason Onset Date Comments medication 01/10/2024 Encounter Details Date Type Department Care Team ([facility] st Contact Info) Description 01/10/2024 Telephone [facility] ADULT DENTAL [address] [place] [address] Enrique Soria, DMD 505 [place] [address] medication Social History Tobacco Use Types Packs/Day [...] Meredith Sánchez - 01/10/2024 10:17 AM EDT [facility] Harrisaraceli Coronado is a 68 y.o. year old male.CALLED TODAY SAYING Stacy DIGINOSE HIM WITH CANCER .YESTERDAY AND HIS IN A LOT OF PAIN.CAN YOU SEND HIM SOMETHING FOR PAIN SHARIF Kumar . documented in this encounter Plan of Treatment Upcoming Encounters Date Type Department Care Team (Late st Contact Info) Description 02/09/2025 9:30 AM EDT Office Visit [facility] CHC MED & PEDS [address] [place] [address] Brea Maciel MD 505 [place] [address] documented as of this encounter Visit Diagnoses Not on filedocumented in this encounter Care Teams Ornamental Bronze Worker Relationship Specialty Start Date End Date Brea Maciel MD 230 [place] [address] PCP - General Family Medicine 09/21/23 Home [facility] 10/01/24 documented as of this encounter
--- OUTSIDE RECORDS SUMMARY | 2025-02-06 11:44 | XMS_ITS | Encounter Summary ---
Author Organization [facility] Address [address] [place] [address] Care Team Providers Care Passenger Service Agent Name Role Phone Laura Hogue APRN Primary Care Provider [phone] Apple Villatoro DO Unavailable [phone] Encounter Details Date Type Department Care Team (Late st Contact Info) Description 08/31/2022 Scanned Document [facility] [address] [place] [phone] Laura Hogue APRN [address] [place], [place] [phone] Social History Tobacco Use Types Packs/Day Years [...] documented as of this encounter Care Teams Passenger Service Agent Relationship Specialty Start Date End Date Laura Hogue APRN [address] [place] [address] PCP - General Family Medicine 09/04/19 Apple Villatoro DO [address] [place] [address] Ladder Operator Cardiovascular Disease 04/12/23 documented as of this encounter
--- OUTSIDE RECORDS SUMMARY | 2025-02-06 11:44 | XMS_ITS | Clinical Summary ---
Author Organization [facility] Address [address] [facility] [address] [place] [address] Phone Care Team Providers Care Copier Technician Name Role Phone Unavailable Primary Care Provider [...] REPLACEMENT MEDICARE REPLACEMENT MEDICARE REPLACEMENT [place] [id number] Additional Source Comments The information contained in this document represents components of the legal health record. It is not the complete legal health record.[facility]
--- OUTSIDE RECORDS SUMMARY | 2025-02-06 11:44 | XMS_ITS | Encounter Summary ---
Author Organization [employer] Address 75 [facility] 7t [place] [address] Care Team Providers Care Home Health Provider Name Role Phone Brea Maciel MD Primary Care Provider [phone] Encounter Details Date Type Department Care Team ([facility] Contact Info) Description 05/07/2024 Orders Only [facility] [address] [place] [address] Provider, MD Hoa Social History Tobacco Use [...] Description 02/09/2025 9:30 AM EDT Office Visit [facility] CHC MED & PEDS 505 [place] [address] Brea Maciel MD 505 [place] [address] documented as of this encounter Procedures Procedure [...] documented as of this encounter Care Teams Home Health Provider Relationship Specialty Start Date End Date Brea Maciel MD [address] [place] [address] PCP - General Family Medicine 09/21/23 Home [facility] 10/01/24 documented as of this encounter
== END 2025-02-06 12:13 | disposition home or self-care (01) ==
LOC: HO.HUSH 10:44
PROVIDERS: PCP Family Medicine; Visit Provider Urology
DX: N47.1 Phimosis (principal); Z13.9 Encounter for screening, unspecified
CPT/HCPCS: 99214

== ENCOUNTER → 2025-02-06 10:43 | Outpatient (BNVA) | payer OTHER, SELFPAY | PROVIDERS: PCP Family Medicine; Visit Provider Urology | DX: N47.1 Phimosis (principal); R39.12 Poor urinary stream; Z13.9 Encounter for screening, unspecified | CPT/HCPCS: 51798; 81003; 99212 ==

== ENCOUNTER → 2025-02-20 13:00 | Outpatient (BNV) | payer OTHER, SELFPAY | PROVIDERS: PCP Family Medicine; Visit Provider Radiology Diagnostic Radiology | DX: R42 Dizziness and giddiness (principal); R51.9 Headache, unspecified | CPT/HCPCS: 70553 ==

== ENCOUNTER 2025-02-20 13:18 | Outpatient (REF) | payer OTHER, SELFPAY ==
--- NOTE | ~2025-02-20 | MR_ITS ---
CLINICAL HISTORY: dizziness headache h o ca r o mets MR brain without and with contrast Comparison: None provided Findings: No acute signal abnormalities noted on diffusion-weighted imaging. No acute intracranial fluid collection, hematoma or signal abnormality. Small areas of hemosiderin deposition posterior left parietal lobe. Minimal chronic ischemic white matter disease without volume loss. There are no abnormal areas of contrast enhancement. Midline structures are intact and within normal limits. Normal flow voids are noted within the vascular structures. Sinuses and mastoids are clear. Impression: No significant abnormalities. This document has been electronically signed by: Epi Mcfarlane MD on 02/22/2025 19:33:56
--- OUTSIDE RECORDS SUMMARY | 2025-02-20 13:29 | XMS_ITS | Clinical Summary ---
Author Organization [facility] Address [address] [place] [phone] Phone Care Team Providers Care Multigraph Operator Name Role Phone Brea Maciel MD Primary Care Provider [phone] Allergies No known active allergies Medications dulaglutide [...] x /32 needle use to inject insulin Active BD [...] squamous cell carcin alexy of lower gingiva ([facility] V24, [facility] V28) 02/12/2024 Cancer Staging:Pathologic:Stage AB(pT4a, pN0, cM0) - Unsigned Overview (04/18/2024): 69 y.o. 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 Dysphagia 02/06/2024 Anxiety 12/24/2023 Depression 12/24/2023 Diabetes mellitus ([facility] V24, [facility] V28) Hyperlipidemia 12/24/2023 Hypertension 12/24/2023 Hypothyroidism 12/24/2023 Psoriasis 12/24/2023 Continuous leakage of urine 10/05/2023 Polyp of colon 10/05/2023 Renal failure 09/27/2023 Transaminitis 09/27/2023 Chronic midline low back pain without sciatica 0 08/15/2023 Hepatic steatosis 07/24/2023 Lightheadedness 03/01/2023 Stage 3a chronic kidney disease ([facility] V24, CM S/[facility] V28) 02/12/2023 Cough 08/26/2019 Suspected COVID-19 virus infection 08/26/2019 Reactive depression 08/26/2019 Lower abdominal pain 08/26/2019 Stage 1 chronic kidney disease 03/05/2018 Vasovagal syncope 03/05/2018 Mixed hyperlipidemia 05/10/2017 Hypothyroidism (acquired) 04/10/2017 Prostate cancer ([facility] V24, [facility] V28) 11/24 Overview (04/18/2024): Last Assessment & Plan: Referral to Urologist for further monitoring and treatment. Erectile dysfunction following radical prostatec jonathan 11/25/2015 Obstructive sleep apnea syndrome 08/18/2015 Snoring 06/16/2015 Essential hypertension 06/16/2015 Fatigue due to sleep pattern disturbance 016 Resolved Problems Problem Noted Date Diagnosed Date Resolved Date Oral cancer ([facility] V24, [facility] V28) 04/17/2024 04/24/2024 Encounters Date Type Department Care Team Description 02/11/2025 1:30 PM EDT Office Visit [facility] Hematology Oncology [address] [place] [phone] Tawana Chang MD Primary squamous cell carcinoma of lower gingiva ([facility] V24, [facility] V28) (Primary Dx) from Last 3 Months Immunizations [...] History Date Comments Hypertension DX:Hypertension Diabetes mellitus ([facility] V 24, [facility] V28) DX:Diabetes mellitus ([facility]) Obstructive sleep apnea syndrome 08/18/2015 DX:Obstructive sleep apnea syndrome Arthritis DX:Arthritis Depression DX:Depression Chronic kidney disease DX:Chroni c kidney disease Prostate cancer ([facility] V24 , [facility] V28) DX:Prostate cancer ([facility]) Primary insomnia 04/16/2024 Family History Medical History [...] Sign Reading Time Taken Comments Blood Pressure 186/76 02/11/2025 1:35 PM EDT Pulse 93 02/11/2025 1:35 PM EDT Temperature 36.8 C (98.2 F) 02/11/2025 1:35 PM EDT Respiratory Rate 16 08/06/2024 1:34 PM EST Oxygen Saturation 100% 02/11/2025 1:35 PM EDT Inhaled Oxygen Concentration - - Weight 64 kg (141 lb) 02/11/2025 1:35 PM EDT Height 162.6 cm (5' 4 ) 06/12/2024 10:50 AM EST Body Mass Index 24.2 06/12/2024 10:50 AM EST Plan of Treatment Upcoming Encounters Date Type Department Care Team (Late st Contact Info) Description 02/26/2025 2:00 PM EDT Appointment [facility] Radiation Oncology [address] [place] [phone] Eliot Pederson MD [address] [place] [address] 03/12/2025 2:45 PM EDT Evaluation [facility] [address] [phone] Bridgett Negra, PT 05/20/2025 11:30 AM EST Office Visit [facility] Hematology Oncology [address] [place] [phone] Tawana Chang MD [address] [place] [phone] Health Maintenance Due Date Last Done Comments COVID-19 Vaccine (#1) 02/06/1961 Diabetes: Annual Foot Exam 02/06/1966 Diabetes: Annual Retina Eye Exam 02/06/1966 Zoster Vaccines (1 of 2) 02/06/1975 Hepatitis B Vaccines (1 of 3 - Risk 3-dose series) 2016 RSV Immunization Adult Patients (1 - Risk 60-74 years 1-dose series) 2016 Abdominal Aortic Aneurysm (AAA) Screen 05/03/2022 Colorectal Cancer Screening: Colonoscopy 05/03/2022 Medicare Annual Wellness Visit 05/03/2022 Social Influencers of Health Screening 05/03/2022 Diabetes: Annual Urine Albumin-Creatinine Ratio (uACR) 02/13/2024 02/12/2023 Depression Screening 06/04/2024 Influenza Vaccine (#1) 2025 02/24/2018 Diabetes: Blood Sugar Control Test (HGBA1C) 06/28/2025 12/26/2024, 08/19/2024, 07/09/2024, Additional history exists Falls Risk Assessment 10/20/2025 10/20/2024 Diabetes: Annual GFR (Glomerular Filtration Rate) 01/16/2026 01/16/2025, 08/19/2024, 07/19/2024, Additional history exists Hypertension/CHF/CAD Annual BMP Blood Test 01/16/2026 01/16/2025, 08/19/2024, 07/19/2024, Additional history exists Cholesterol Screening (Lipid Panel) [...] mmol/L LAB CHEMISTRY METHOD 07/19/2024 12:34 PM [facility] Potassium 4.1 3.5 - 5.5 mmol/L LAB CHEMISTRY METHOD 07/19/2024 12:34 PM [facility] Chloride 102 96 - 110 mmol/L LAB CHEMISTRY METHOD 07/19/2024 12:34 PM [facility] CO2 27 21 - 32 mmol/L LAB CHEMISTRY METHOD 07/19/2024 12:34 PM [facility] Anion Gap 5 3 - 11 LAB CHEMISTRY METHOD 07/19/2024 12:34 PM [facility] Glucose 180(H) 70 - 100 mg/dL LAB CHEMISTRY METHOD 07/19/2024 12:34 PM [facility] BUN 14 5 - 25 mg/dL LAB CHEMISTRY METHOD 07/19/2024 12:34 PM [facility] Creatinine 1.13 0.70 - 1.30 mg/dL LAB CHEMISTRY METHOD 07/19/2024 12:34 PM [facility] eGFR 71 >=60 mL/min/1. 73m2 LAB CHEMISTRY METHOD 07/19/2024 12:34 PM [facility] Comment:Calculation based on the Chronic Kidney Disease Epidemiology Collaboration (CKD-EPI) equation refit without adjustment for race. BUN/Creatinine Ratio 12.4 LAB CHEMISTRY METHOD 07/19/2024 12:34 PM [facility] Calcium 9.0 8.5 - 10.5 mg/dL LAB CHEMISTRY METHOD 07/19/2024 12:34 PM [facility] Blood Venous blood specimen / Unknown Venipuncture / Unknown 07/19/2024 12:00 PM EST 07/19/2024 12:09 PM EST us Enrique Greenwood MD LAB BLOOD ORDERABLES Final Result [facility] [address] [place] [address], [place] [phone] from Last 3 Months or Most Recently Relevant to Health Maintenance [place] [address] [place] [address] MEDICARE Member Subscriber Plan / Payer (Ef fective 2019-Present) Name:LEWIS SANTANA Relation to Subscriber:Self Name:Lewis Santana Payer ID:[id number] Group ID:[id number] Type:Not on file Address: [place] [address] [address] [phone] Care Teams Multigraph Operator Relationship Specialty Start Date End Date Brea Maciel MD [address] [place] [phone] PCP - General 10/08/23
--- OUTSIDE RECORDS SUMMARY | 2025-02-20 13:29 | XMS_ITS | Encounter Summary ---
Author Organization [employer] Address 75 [facility] 7t [place] [address] Care Team Providers Care Acid Conditioner Name Role Phone Brea Maciel MD Primary Care Provider [phone] Encounter Details Date Type Department Care Team ([facility] Contact Info) Description 07/22/2024 Orders Only [facility] [address] [place] [address] Provider, MD Hoa Social History Tobacco Use [...] documented as of this encounter Care Teams Acid Conditioner Relationship Specialty Start Date End Date Brea Maciel MD [address] [place] [address] PCP - General Family Medicine 09/21/23 Home Care [facility] 10/01/24 documented as of this encounter
--- OUTSIDE RECORDS SUMMARY | 2025-02-20 13:29 | XMS_ITS | Encounter Summary ---
Author Organization [employer] Address 75 [facility] 7t [place] [address] Care Team Providers Care Auto Tester Name Role Phone Brea Maciel MD Primary Care Provider [phone] Reason for Visit * Reason Onset Date Comments Appointment Request 02/19/2025 Encounter Details Date Type Department Care Team ([facility] Contact Info) Description 02/19/2025 Telephone [facility] CHC MED & PEDS [address] [place] [address] Brea Maciel MD [address] [place] [address] Appointment Request Social History Tobacco Use Types Packs/Day Years [...] Telephone Encounter - Tiffany Gray RN - 02/19/2025 10:08 AM EDT TC to patient. No answer. Message left to return call to office to schedule appointment. * Telephone Encounter - Alonso Kaplan - 02/19/2025 9:01 AM EDT Tc from pt requesting to r/s no showed apt. No availability for mortgage loan underwriter to schedule. Contact pt at [phone]. documented in this encounter Plan of Treatment Not on file documented as of this encounter Visit Diagnoses Not on filedocumented in this encounter Additional Health Concerns Assessment Noted Time PHQ-9 Depression Total Score: 0 07/09/19 25 8:57 AM EST documented as of this encounter Care Teams Auto Tester Relationship Specialty Start Date End Date Brea Maciel MD [address] [place] [address] PCP - General Family Medicine 09/21/23 Home Care [facility] 10/01/24 documented as of this encounter
--- OUTSIDE RECORDS SUMMARY | 2025-02-20 13:29 | XMS_ITS | Clinical Summary ---
Author Organization [facility] Address [address] [place] [address] Care Team Providers Care Golf Club Head Inspector And Adjuster Name Role Phone Charis Liz Primary Care Provider [phone] William Kaplan MD Unavailable Allergies Active Allergy [...] Information: Site ID: [id number] Name: [facility] Address: [address] [place] [phone] Director: Roly Huerta M.D.,PhD us Robert Martinez MD [facility] ORDERABLES Lin amalia Result [facility]ACKELINE [facility] [address] [place] [phone], [place] from Last 3 Months or Most Recently Relevant to Health Maintenance Insurance [address] [place] [address] MEDICAID [id number] MEDIC[place] PART A & B Care Teams Golf Club Head Inspector And Adjuster Relationship Specialty Start Date End Date Charis Liz PA [address] [place] [address] PCP - General Internal Medicine 12/11/18 William Kaplan MD [address] [place] [address] PCP - Insurance Payer PCP 02/02/23
--- OUTSIDE RECORDS SUMMARY | 2025-02-20 13:29 | XMS_ITS | Encounter Summary ---
Author Organization [facility] Address [address] [place] [address] Care Team Providers Care Lead Burner Helper Name Role Phone Jaylene Kong MD Primary Care Provider [phone] Charis Liz PA-C Primary Care Provider [phone] Laura Hogue APRN Primary Care Provider [phone] Apple Villatoro DO Unavailable [phone] Encounter Details Date Type Department Care Team (Late st Contact Info) Description 11/25/2015 Scanned Document [address] [phone] Provider, Generic Social History Tobacco Use Types [...] documented as of this encounter Care Teams Lead Burner Helper Relationship Specialty Start Date End Date Jaylene Kong MD PCP - General Internal Medicine 09/28/15 04/04/17 Charis Liz PA-C PCP - General 04/05/17 09/03/19 Laura Hogue APRN [address] [place] [address] PCP - General Family Medicine 09/04/19 Apple Villatoro DO [address] [place] [address] Delivery Driver Cardiovascular Disease 04/12/23 documented as of this encounter
--- OUTSIDE RECORDS SUMMARY | 2025-02-20 13:29 | XMS_ITS | Encounter Summary ---
Author Organization [facility] Address [address] [place] [address] Care Team Providers Care Edge Cutting Machine Operator Name Role Phone Laura Hogue APRN Primary Care Provider Apple Villatoro DO Unavailable [phone] Encounter Details Date Type Department Care Team (Late st Contact Info) Description 03/01/2020 Scanned Document [facility] Colorectal [facility] [place] [address] [place] [address] Laura Hogue APRN [address] [place], [place] [phone] Social History Tobacco Use Types Packs/Day Years [...] documented as of this encounter Care Teams Edge Cutting Machine Operator Relationship Specialty Start Date End Date Laura Hogue APRN [address] [place] [address] PCP - General Family Medicine 09/04/19 Apple Villatoro DO [address] [place] [address] Regional Education Manager Cardiovascular Disease 04/12/23 documented as of this encounter
--- OUTSIDE RECORDS SUMMARY | 2025-02-20 13:29 | XMS_ITS | Clinical Summary ---
Author Organization [facility] Address [address] [place] [address] Care Team Providers Care Patient Relations Representative Name Role Phone Pcp, Chester Akbar MD Primary Care Provider [phone] Allergies Active Allergy Reactions Criticality Noted Date [...] Recent Progress Patient-Stated? Author Carry glucose tablets [facility] Kimberlyn Coyle, RN Take Novolog 5-10 minutes before each meal [facility] Kimberlyn Coyle, RN Schedule eye exam [facility] Kimberlyn Coyle, RN Check BG TID before breakfast, lunch and dinner and keep log [facility] Kimberlyn Coyle, RN Care Teams Patient Relations Representative Relationship Specialty Start Date End Date Pcp, Chester Akbar MD [address] [place] [address] PCP - General Welt Wheeler 08/17/21
--- OUTSIDE RECORDS SUMMARY | 2025-02-20 13:29 | XMS_ITS | Encounter Summary ---
Author Organization [employer] Address 75 [facility] 7t [place] [address] Care Team Providers Care Theology Teacher Name Role Phone Brea Maciel MD Primary Care Provider [phone] Reason for Visit * Reason Comments Med Refill Encounter Details Date Type Department Care Team ([facility] Contact Info) Description 10/16/2024 Refill [facility] MEDICINE [address] [place] [address] Brea Maciel MD [address] [place] [address] Social History Tobacco Use Types Packs/Day Years [...] documented as of this encounter Care Teams Theology Teacher Relationship Specialty Start Date End Date Brea Maciel MD [address] [place] [address] PCP - General Family Medicine 09/21/23 [facility] 10/01/24 documented as of this encounter
--- OUTSIDE RECORDS SUMMARY | 2025-02-20 13:29 | XMS_ITS | Encounter Summary ---
Author Organization [employer] Address 75 [facility] 7t [place] [address] Care Team Providers Care Geotechnician Name Role Phone Brea Maciel MD Primary Care Provider [phone] Reason for Visit * Reason Onset Date Comments FYI 08/06/2024 Encounter Details Date Type Department Care Team ([facility] Contact Info) Description 08/06/2024 Telephone [facility] MEDICINE [address] [place] [address] Brea Maciel MD [address] [place] [address] FYI Social History Tobacco Use Types Packs/Day [...] 4:45 PM EST Tc from [facility] calling in stating that they are discharging pt from speech therapy today. (08/06/2024) documented in this encounter Plan of Treatment Not on file documented as of this encounter Visit Diagnoses Not on filedocumented in this encounter Additional Health Concerns Assessment Noted Time PHQ-9 Depression Total Score: 0 07/09/19 25 8:57 AM EST documented as of this encounter Care Teams Geotechnician Relationship Specialty Start Date End Date Brea Maciel MD [address] [place] [address] PCP - General Family Medicine 09/21/23 Home [facility] 10/01/24 documented as of this encounter
--- OUTSIDE RECORDS SUMMARY | 2025-02-20 13:29 | XMS_ITS | Encounter Summary ---
Author Organization [employer] Address [address] [facility] 7t [place] [address] Care Team Providers Care Leather Stamper Name Role Phone Brea Maciel MD Primary Care Provider [phone] Reason for Visit * Reason Onset Date Comments Reschedule 06/02/2024 Encounter Details Date Type Department Care Team ([facility] Contact Info) Description 06/02/2024 Telephone [facility] MEDICINE [address] [place] [address] Brea Maciel MD [address] [place] [address] Reschedule Social History Tobacco Use Types Packs/Day [...] as of this encounter Care Teams Leather Stamper Relationship Specialty Start Date End Date Brea Maciel MD [address] [place] [address] PCP - General Family Medicine 09/21/23 Home [facility] 10/01/24 documented as of this encounter
--- OUTSIDE RECORDS SUMMARY | 2025-02-20 13:29 | XMS_ITS | Encounter Summary ---
Author Organization [employer] Address [address] [facility] 7t [place] [address] Care Team Providers Care Agricultural Extension Specialist Name Role Phone Brea Maciel MD Primary Care Provider [phone] Reason for Visit * Reason Comments Med Refill Encounter Details Date Type Department Care Team ([facility] Contact Info) Description 07/27/2024 Refill [facility] CHC MED & PEDS [address] [place], [place] [phone] Manjinder Tucker MD [address] [place] [address] Psoriasis Social History Tobacco Use Types Packs/Day [...] documented as of this encounter Care Teams Agricultural Extension Specialist Relationship Specialty Start Date End Date Brea Maciel MD [address] [place] [address] PCP - General Family Medicine 09/21/23 Home [facility] 10/01/24 documented as of this encounter
--- OUTSIDE RECORDS SUMMARY | 2025-02-20 13:29 | XMS_ITS | Clinical Summary ---
Author Organization [facility] Address [address] [place] [address] Care Team Providers Care Briefcase Sewer Name Role Phone LennieLoriefrances ESTRADA Primary Care Provider [phone] Apple Villatoro DO Unavailable [phone] Allergies Active Allergy Reactions Criticality Noted [...] Admin Instructions . Active Continuous Blood Gluc User Experience Designer (FreeStyle Marlen 2 [place]) Device 1 PER YEAR Active Continuous Blood Gluc Sensor (FreeStyle Marlen 2 Sensor) [facility] See Admin Instructions . [...] Comprehensive Metabolic Panel (02/28/2023 1:22 PM EDT) [facility] Glucose 409(HH) 65 - 99 mg/dL 02/28/2023 2:[address] [facility] Comment:Fasting: <100 mg/dL, Non-Fasting: <200 mg/dL (ADA 2005) Blood Urea Nitrogen (BUN) 42(H) 8 - 21 mg/dL 02/28/2023 2:17 PM [facility] Creatinine 1.5(H) 0.5 - 1.3 mg/dL 02/28/2023 2:17 PM [facility] eGFR 51(L) >59 02/28/2023 2:17 PM [facility] Comment:CKD-EPI (2020) in mL /min/1.73 sq meters. Sodium 133(L) 136 - 145 mmol/L 02/28/2023 2:17 PM [facility] Potassium 3.7 3.4 - 5.3 mmol/L 02/28/2023 2:17 PM [facility] Chloride 95(L) 98 - 107 mmol/L 02/28/2023 2:17 PM [facility] CO2 25 22 - 33 mmol/L 02/28/2023 2:17 PM [facility] Calcium 9.7 8.7 - 10.5 mg/dL 02/28/2023 2:17 PM [facility] Alkaline Phosphatase 105 45 - 128 U/L 02/28/2023 2:17 PM [facility] Aspartate Aminotrans (AST) 40 10 - 55 U/L 02/28/2023 2:17 PM [facility] Alanine Aminotrans (ALT) 59(H) 10 - 55 U/L 02/28/2023 2:17 PM [facility] Bilirubin, Total 0.5 0.2 - 1.0 mg/dL 02/28/2023 2:17 PM [facility] Protein, Total 7.7 6.3 - 8.3 g/dL 02/28/2023 2:17 PM [facility] Albumin 4.2 3.4 - 4.8 g/dL 02/28/2023 2:17 PM [facility] BUN/Creatinine Ratio 28(H) 10.0 - 25.0 Ratio 02/28/2023 2:17 PM [facility] Globulin 3.5 1.5 - 3.9 g/dL 02/28/2023 2:17 PM [facility] Albumin/Globulin Ratio 1.2 1.0 - 3.0 Ratio 02/28/2023 2:17 PM [facility] Anion Gap 13 7 - 17 02/28/2023 2:[address] [facility] Blood specimen (specimen) (Plasma/Serum) 02/28/2023 1:22 PM EDT 02/28/2023 1:48 PM EDT Result [facility] Fela BELTRE LAB BLOOD ORDERABLES Final Re sult HOSPITAL LAB See Below [facility] [address] [place] [address] * POCT Microalbumin (02/12/2023 10:37 AM EDT) Microalbumin, POC 10.0 MG/L Creatinine Urine, POC 100.0 MG/DL Microalbumin/Cr eat Ratio, POC <30 MG/G Lot Number [id number] Geophysical Observer Pass Pass Urine 02/12/2023 10:3 7 AM EDT Result [facility] Amor Velasco MD POINT OF CARE TEST [...] AM EDT 08/27/2019 8:31 AM EDT Result [facility] Jennifer Monterroso MD LAB BLOOD ORDERABLES Final [...] EDT 03/06/2018 7:56 AM EDT Radha Carter TESTER OPERATOR HELPER LAB BLOOD ORDERABLES Final Res ult HOSPITAL [...] Decision Thoroughly Discussed with: Patient Care Teams Briefcase Sewer Relationship Specialty Start Date End Date Laura Hogue APRN [address] [place] [address] PCP - General Family Medicine 09/04/19 Apple Villatoro DO [address] [place] [address] Graphics Production Specialist Cardiovascular Disease 04/12/23
--- OUTSIDE RECORDS SUMMARY | 2025-02-20 13:29 | XMS_ITS ---
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 Dysphagia 02/06/2024 Anxiety 12/24/2023 Depression 12/24/2023 Diabetes mellitus ([facility] V24, [facility] V28) Hyperlipidemia 12/24/2023 Hypertension 12/24/2023 Hypothyroidism 12/24/2023 Psoriasis 12/24/2023 Continuous leakage of urine 10/05/2023 Polyp of colon 10/05/2023 Renal failure 09/27/2023 Transaminitis 09/27/2023 Chronic midline low back pain without sciatica 0 08/15/2023 Hepatic steatosis 07/24/2023 Lightheadedness 03/01/2023 Stage 3a chronic kidney disease ([facility] V24, [facility] V28) 02/12/2023 Cough 08/26/2019 Suspected COVID-19 virus infection 08/26/2019 Reactive depression 08/26/2019 Lower abdominal pain 08/26/2019 Stage 1 chronic kidney disease 03/05/2018 Vasovagal syncope 03/05/2018 Mixed hyperlipidemia 05/10/2017 Hypothyroidism (acquired) 04/10/2017 Prostate cancer ([facility] V24, [facility] V28) 11/24 Overview (04/18/2024): Last Assessment [...] squamous cell carcin alexy of lower gingiva ([facility] V24, [facility] V28) Treatment Medications Current Day (Day [...]
--- OUTSIDE RECORDS SUMMARY | 2025-02-20 13:30 | XMS_ITS | Encounter Summary ---
Author Organization [employer] [facility] Address [address] [facility] 7t [place] [address] Care Team Providers Care Government Service Executive Name Role Phone Brea Maciel MD Primary Care Provider Encounter Details Date Type Department Care Team (Late st Contact Info) Description 07/24/[address] [facility] [address] [place] [address] Shawn Mendez MD [address] [place] [address] Social History Tobacco Use Types Packs/Day Years [...] filedocumented in this encounter Care Teams Government Service Executive Relationship Specialty Start Date End Date Brea Maciel MD [address] [place] [address] PCP - General Family Medicine 09/21/23 Home [facility] 10/01/24 documented as of this encounter
--- OUTSIDE RECORDS SUMMARY | 2025-02-20 13:30 | XMS_ITS | Encounter Summary ---
Author Organization [facility] Address [address] [place] [address] Care Team Providers Care Software Developer Intern Name Role Phone Laura Hogue APRN Primary Care Provider Apple Villatoro DO Unavailable [phone] Encounter Details Date Type Department Care Team (Late st Contact Info) Description 03/08/2023 Scanned Document [address] [place] [phone] Provider, Generic Social History Tobacco Use Types [...] on filedocumented in this encounter Care Teams Software Developer Intern Relationship Specialty Start Date End Date Laura Hogue APRN [address] [place] [address] PCP - General Family Medicine 09/04/19 Apple Villatoro DO [address] [place] [address] Inspector Production Plastic Parts Cardiovascular Disease 04/12/23 documented as of this encounter
--- OUTSIDE RECORDS SUMMARY | 2025-02-20 13:30 | XMS_ITS | Encounter Summary ---
Author Organization [employer] [facility] Address 75 [facility] 7t [place] [address] Care Team Providers Care Boilermaking Supervisor Name Role Phone Brea Maciel MD Primary Care Provider [phone] Reason for Visit * Reason Onset Date Comments medication 01/10/2024 Encounter Details Date Type Department Care Team ([facility] st Contact Info) Description 01/10/2024 Telephone [facility] ADULT DENTAL [address] [place] [address] Enrique Soria, DMD [address] [place] [address] medication Social History Tobacco Use Types Packs/Day [...] Meredith Sánchez - 01/10/2024 10:17 AM EDT [facility] ADDISON Feliciano Coronado is a 68 y.o. year old male.CALLED TODAY SAYING Stacy DIGINOSE HIM WITH CANCER .YESTERDAY AND HIS IN A LOT OF PAIN.CAN YOU SEND HIM SOMETHING FOR PAIN SHARIF Kumar . documented in this encounter Plan of Treatment Not on file documented as of this encounter Visit Diagnoses Not on filedocumented in this encounter Care Teams Boilermaking Supervisor Relationship Specialty Start Date End Date Brea Maciel MD [address] [place] [address] PCP - General Family Medicine 09/21/23 Home [facility] 10/01/24 documented as of this encounter
--- OUTSIDE RECORDS SUMMARY | 2025-02-20 13:30 | XMS_ITS | Encounter Summary ---
Author Organization [facility] Address [address] [place] [address] Care Team Providers Care Elevator Mechanic Name Role Phone LennieLoriefrances ESTRADA Primary Care Provider Apple Villatoro DO Unavailable [phone] Encounter Details Date Type Department Care Team (Late st Contact Info) Description 08/31/2022 Scanned Document [facility] [address] [facility] [address] [place] [phone] Shabnam Merrill MD [address] [place] [address] Social History Tobacco Use Types Packs/Day Years [...] documented as of this encounter Care Teams Elevator Mechanic Relationship Specialty Start Date End Date Laura Hogue APRN [address] [place] [address] PCP - General Family Medicine 09/04/19 Apple Villatoro DO [address] [place] [address] Rolling Machine Tender Cardiovascular Disease 04/12/23 documented as of this encounter
--- OUTSIDE RECORDS SUMMARY | 2025-02-20 13:30 | XMS_ITS | Encounter Summary ---
Author Organization [employer] Address 75 [facility] 7t [place] [address] Care Team Providers Care Periodicals Clerk Name Role Phone Brea Maciel MD Primary Care Provider [phone] Encounter Details Date Type Department Care Team ([facility] Contact Info) Description 05/07/2024 Orders Only [facility] [address] [place] [address] Provider, MD Hoa Social History Tobacco Use [...] documented as of this encounter Care Teams Periodicals Clerk Relationship Specialty Start Date End Date Brea Maciel MD [address] [place] [address] PCP - General Family Medicine 09/21/23 Home Care [facility] 10/01/24 documented as of this encounter
--- OUTSIDE RECORDS SUMMARY | 2025-02-20 13:30 | XMS_ITS | Encounter Summary ---
Author Organization [employer] Address 75 [facility] 7t [place] [address] Care Team Providers Care Pipe Layer Name Role Phone Brea Maciel MD Primary Care Provider [phone] Reason for Visit * Reason Comments Med Refill Encounter Details Date Type Department Care Team ([facility] Contact Info) Description 05/01/2024 Refill [facility] CHC MED & PEDS [address] [place], [place] [phone] Manjinder Tucker MD [address] [place] [address] Psoriasis Social History Tobacco Use Types Packs/Day [...] documented as of this encounter Care Teams Pipe Layer Relationship Specialty Start Date End Date Brea Maciel MD [address] [place] [address] PCP - General Family Medicine 09/21/23 Home Care [facility] 10/01/24 documented as of this encounter
--- OUTSIDE RECORDS SUMMARY | 2025-02-20 13:30 | XMS_ITS | Encounter Summary ---
Author Organization [facility] Address [address] [place] [address] Care Team Providers Care Fiberglass Bonding Machine Tender Name Role Phone Laura Hogue APRN Primary Care Provider Apple Villatoro DO Unavailable [phone] Encounter Details Date Type Department Care Team (Late st Contact Info) Description 08/31/2022 Scanned Document [facility] Squire [address] [place] [phone] Laura Hogue APRN [address] [place], [place] [phone] Social History Tobacco Use Types Packs/Day Years [...] documented as of this encounter Care Teams Fiberglass Bonding Machine Tender Relationship Specialty Start Date End Date Laura Hogue APRN [address] [place] [address] PCP - General Family Medicine 09/04/19 Apple Villatoro DO [address] [place] [address] Repairer Maintenance Building Cardiovascular Disease 04/12/23 documented as of this encounter
--- OUTSIDE RECORDS SUMMARY | 2025-02-20 13:30 | XMS_ITS | Encounter Summary ---
Author Organization [employer] Address 75 [facility] 7t [place] [address] Care Team Providers Care Elevator Operator Freight Name Role Phone Brea Maciel MD Primary Care Provider [phone] Reason for Visit * Reason Onset Date Comments Durable Medical Equipment 04/11/2024 Encounter Details Date Type Department Care Team ([facility] st Contact Info) Description 04/11/2024 Telephone [facility] MEDICINE [address] [place] [address] Brea Maciel MD [address] [place] [address] Durable Medical Equipment Social History Tobacco Use [...] - 04/11/2024 3:09 PM EST Tc from [facility] ([facility]) requesting DME supply for pt Shower Chair, Race toilet seat with hand rest, walker with seat . Callback number [phone] documented in this encounter Plan of Treatment Not on file documented as of this encounter Visit Diagnoses Not on filedocumented in this encounter Additional Health Concerns Assessment Noted Time PHQ-9 Depression Total Score: 10 024 11:21 AM EDT documented as of this encounter Care Teams Elevator Operator Freight Relationship Specialty Start Date End Date Brea Maciel MD [address] [place] [address] PCP - General Family Medicine 09/21/23 Home Care [facility] 10/01/24 documented as of this encounter
--- OUTSIDE RECORDS SUMMARY | 2025-02-20 13:30 | XMS_ITS | Encounter Summary ---
Author Organization [employer] Address [address] [facility] [address] 7t [place] [address] Care Team Providers Care Facility Administrator Name Role Phone Brea Maciel MD Primary Care Provider [phone] Encounter Details Date Type Department Care Team ([facility] st Contact Info) Description 02/15/2024 Telephone [facility] MEDICINE 230 [place] [address] Brea Maciel MD [address] [place], [place] [phone] Social History Tobacco Use Types Packs/Day Years [...] documented as of this encounter Care Teams Facility Administrator Relationship Specialty Start Date End Date Brea Maciel MD 230 [place] [address] PCP - General Family Medicine 09/21/23 Home Care [facility] 10/01/24 documented as of this encounter
--- OUTSIDE RECORDS SUMMARY | 2025-02-20 13:30 | XMS_ITS | Clinical Summary ---
Author Organization [employer] Address [address] [facility] [address] [place] [address] Care Team Providers Care Surgical Services Manager Name Role Phone Brea Maciel MD Primary Care Provider [phone] Allergies Active Allergy Reactions Criticality Noted Date [...] 200 each 11 4 Active Continuous Glucose Spinning Machine Tender (FreeStyle Marlen 2 [place]) device 1 Units 4 times daily. 1 [...] Active pen needle 32G x 4 mm [facility] USE TO INJECT INSULIN QID 200 each [...] 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, with long-term current use of insulin ([facility]) Inject 28 Units under the skin at bedtime. 54 mL 1 5 Active Tirzepatide 2.5 MG/0.5ML solution auto-injectorI ndications:Typ e 2 diabetes mellitus without 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, with long-term current use of insulin (CMS/[facility]) Inject 2.5 mg under the skin [...] (09/24/2024): Followed by Dr. Jakob Harrell at [facility] discharge follow-up 04/16/2024 Assessment & [...] (01/23/2025): 69 y.o. 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 Referring to Occupational Health Specialist. Continuous leakage of urine 10/05/2023 Assessment & [...] in one month. Relevant Medications Continuous Glucose Spinning Machine Tender (Freestyle Marlen 2 [place]) device Continuous Glucose Spinning Machine Tender (Freestyle Marlen 2 Sensor) misc Insulin glargine [...] losartan and amlodipine, will send medication to [facility] pharmacy. Also he does not have a bp monitor at home, will send one, follow up with pcp in 2-3 months Fatigue due to sleep pattern disturbance 016 Resolved Problems Problem Noted Date Diagnosed Date Resolved Date Community acquired pneumonia 08/26/2019 09/21/2023 Encounters Date Type Department Care Team Description 02/19/2025 Telephone [facility] [address] [place] [address] Brea Maciel MD Appointment Request 02/09/2025 Telephone [facility] [address] [place] [address] Brea Maciel MD No Show 02/03/2025 Telephone [facility] [address] [place] [address] Brea Maciel MD chart prep 01/23/2025 2:00 PM EDT Office Visit [facility] PED[facility] [address] [place] [address] Brea Maciel MD Type 2 diabetes mellitus without 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, with long-term current use of insulin ([facility]CC) (Primary Dx); Essential hypertension; Chronic pain of left knee; Hypothyroidism, unspecified type; Encounter for immunization 01/23/2025 Travel 01/16/2025 Orders Only GENERIC EXTERNAL DATA DEPARTMENT Provider, Generic External Data 01/14/2025 Telephone [facility] [address] [place] [address] Brea Maciel MD chart prep 01/01/2025 Telephone [facility] [address] [place] [address] Brea Maciel MD 12/31/2024 [facility] [employer] Information Management [address] [place] [phone] Brea Maciel MD 12/26/2024 10:30 AM EDT Office Visit [facility] [address] [place] [address] Brea Maciel MD Chronic intractable headache, unspecified headache type (Primary Dx); Type 2 diabetes mellitus without 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, with long-term current use of insulin ([facility]/HCC); Dizziness on standing; Phimosis of penis; Abnormality of gait due to impairment of balance 12/26/2024 Travel 12/19/2024 Patient Outreach [facility] [address] [place] [phone] Brea Maciel MD Pre-visit Planning (Pre visit planning LVM ) 12/18/2024 Telephone [facility] [address] [place] [address] Brea Maciel MD chart prep 12/18/2024 Telephone [facility] [address] [place] [address] Brea Maciel MD 12/13/2024 Orders Only GENERIC EXTERNAL DATA DEPARTMENT Provider, Generic External Data from Last 3 Months Immunizations Immunization Administration [...] 01/23/2025 1:46 PM EDT Plan of Treatment Health Maintenance [...] 10/05/2023, Additional history exists COVID-19 Vaccine ( season) 2025 Influenza Vaccine (#1) 2025 02/24/2018 [...] 10/05/2023 Hepatitis A Vaccines Completed 01/23/2025, 10/05/19 HIB Vaccines Aged Out No longer eligi [...] 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, with long-term current use of insulin ([facility]) CT KNEE WO CONTRAST LEFT Routine [...] 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, with long-term current use of insulin ([facility]) POCT GLUCOSE Routine 12/26/2024 10:35 AM EDT Type 2 diabetes mellitus without 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, with long-term current use of insulin ([facility]) CT HEAD FOR ICH Routine 12/13/2024 [...] specimen / Unknown 01/23/2025 2:48 PM EDT Brea Maciel MD POINT OF CARE TEST ENTER/EDIT ORDERABLES Final Result * CT Kne w/o Contrast Left (01/16/2025 1:22 PM EDT) Anatomical Region Laterality Modality Lower Extremities, Knee Left Computed Tomography 01/16/2025 1:22 PM EDT Narrative 01/16/2025 2:53 PM EDT [place] [address] CT Scan Report Signed Patient: Feliciano Santana MR#: M [id number] : 1955 Acct:[id number] Age/Sex: 69 / M ADM Date: 01/16/25 Loc: HO.ED Attending Dr: Ordering Physician: Emani Cervantes NP Date of Service: 01/16/25 Procedure(s): CT knee LT wo IV con Accession Number(s): [id number] cc: Emani Cervantes NP; Brea Maciel MD Report Number: [id number]: Total DLP = 207.00 mGy-cm EXAMINATION: CT [...] Leopoldo Veliz MD 01/16/2025 02:50 PM EDT RP Dictated By: Leopoldo Veliz MD Signed By: <Electronically signed by Leopoldo Veliz MD in OV> 01/16/25 1450 DD/ 1322 TD/TT: 01/16/25 1441 Manager Recruitment: Procedure Note Donotuseinterpreter, Image - 01/16/[address] [place] [address] [address] Scan Report Signed Patient: Feliciano Santana#: M [id number] : 1955cct:[id number] Age/Sex: 69 / MADM Date: 01/16/25 Loc: HO.ED Attending Dr: Ordering Physician: Emani Cervantes NP Date of Service: 01/16/25 Procedure(s): CT knee LT wo IV con Accession Number(s): [id number] cc: Emani Cervantes NP; Brea Maciel MD Report Number: [id number]: Total DLP = 207.00 mGy-cm EXAMINATION: CT [...] Leopoldo Veliz MD 01/16/2025 02:50 PM EDT RP Dictated By: Leopoldo Veliz MD Signed By: <Electronically signed by Leopoldo Veliz MD in OV> 01/16/25 1450 DD/ 1322 TD/TT: 01/16/25 1441 Manager Recruitment: [facility] External Provider IMG CT PROCEDURES Final Result * Lower Extremity Venous Duplex (01/16/2025 9:46 AM EDT) 01/16/2025 9:46 AM EDT Narrative [facility] - 01/16/2025 10:31 AM EDT [address] [address] Ultrasound Report Signed Patient: Feliciano Santana MR#: M [id number] : 1955 Acct:[id number] Age/Sex: 69 / M ADM Date: 01/16/25 Loc: HO.ED Attending Dr: Ordering Physician: Emani Cervantes NP Date of Service: 01/16/25 Procedure(s): US venous duplex LE LT Accession Number(s): [id number] cc: Emani Cervantes NP; Brae Maciel MD EXAMINATION: US LOWER EXTREMITY VEINS [...] 01/16/25 1029 DD/ 0946 TD/TT: 01/16/25 1002 Manager Recruitment: Procedure Note Donotuseinterpreter, Image - 01/16/[address] [address] Ultrasound Report Signed Patient: Feliciano Santana#: M [id number] : 6Acct:[id number] Age/Sex: 69 / MADM Date: 01/16/25 Loc: .ED Attending Dr: Ordering Physician: Emani Cervantes NP Date of Service: 01/16/25 Procedure(s): US venous duplex LE LT Accession Number(s): [id number] cc: Emani Cervantes NP; Brea Maciel MD [...] 01/16/25 1029 DD/ 0946 TD/TT: 01/16/25 1002 Manager Recruitment: us [facility] External Provider CV VASC ULAR PROCEDURES Final Result [facility] [address] [place] [phone] * (ABNORMAL) CBC auto differential (01/16/2025 9:34 AM EDT) Only the most recent of3 resultswithin the time period is included. White Blood Count 6.2 4.8 - 10.8 X10*3/uL [facility] Red Blood Count 5.18 4.60 - 5.80 X10*6/uL [facility] Hemoglobin 14.0 14.0 - 18.0 g/dl [facility] Hematocrit 40.6(L) 42.0 - 52.0 % [facility] Mean Corpuscular Volume 78.4(L) 80.0 - 98.0 fL [facility] Mean Corpuscular Hemoglobin 27.0 27.0 - 33.0 pg [facility] Mean Corpuscular HGB Conc 34.5 31.0 - 36.0 g/dl [facility] Red Cell Distribution Width 15.4 11.0 - 16.0 % [facility] Platelet Count 177 160 - 400 X10*3/uL [facility] Mean Platelet Volume 9.2(L) 9.4 - 12.4 fL [facility] Neutrophils Percent Auto 76.1(H) 45 - 73 % [facility] Imm Gran Pct Auto 0.8(H) 0.0 - 0.4 % [facility] Lymphocytes Percent Auto 11.1(L) 20 - 40 % [facility] Monocytes Percent Auto 11.1(H) 2 - 11 % [facility] Eosinophils Percent Auto 0.6 0 - 4 % [facility] Basophils Percent Auto 0.3 0 - 2 % [facility] NRBC Pct Auto 0.0 0.0 - 0.2 /100WBC [facility] Neutrophils Absolute Auto 4.7 2.0 - 8.3 x10*3/uL [facility] Imm Gran Abs Auto 0.05(H) 0.00 - 0.03 X10*3/uL [facility] Lymphocytes Absolute Auto 0.7(L) 1.2 - 4.9 X10*3/uL [facility] Monocytes Absolute Auto 0.7 0.1 - 1.2 X10*3/uL [facility] Eosinophils Absolute Auto 0.0 0.0 - 0.4 X10*3/uL [facility] Basophils Absolute Auto 0.0 0.0 - 0.2 X10*3/uL [facility] NRBC Abs Auto 0.000 0.0 - 0.012 X10*3/uL [facility] 01/16/2025 9:34 AM EDT 01/16/2025 9:37 AM EDT us Generic External Data Provider LAB BLOOD ORDERAB LES Final Result [facility] [address] [place] [address] [phone] * (ABNORMAL) Sed Rate by Modified Billie (01/16/2025 9:34 AM EDT) Only the most recent of3 resultswithin the time period is included. Erythrocyte Sedimentation Rate 21(H) 0 - 15 MM/HR [facility] Comment:Patients with polycy themia and many hemoglobin abnormalitiesmay have depressed sed rates whereas patients with anemiamay have elevated sed rates. 01/16/2025 9:34 AM EDT 01/16/2025 9:37 AM EDT Generic External Data Provider LAB BLOOD ORDERAB LES Final Result Performing Organization Address [facility] Co de Phone Number [facility] [address] [place] [phone] * (ABNORMAL) C-reactive Protein (01/16/2025 9:34 AM EDT) Only the most recent of3 resultswithin the time period is included. Pathologist [facility] C Reactive Protein 1.18(H) < or = 0.50 mg/dL [facility] 01/16/2025 9:34 AM EDT 01/16/2025 9:37 AM EDT Generic External Data Provider LAB BLOOD ORDERAB LES Final Result Performing Organization Address [facility] de Phone Number [facility] [address] [place] [phone] * (ABNORMAL) Comprehensive Metabolic Panel (01/16/2025 9:34 AM EDT) Only the most recent of2 resultswithin the time period is included. Pathologist [facility] Sodium 138 135 - 145 mmol/L [facility] Potassium 3.9 3.3 - 5.1 mmol/L [facility] Chloride 102 96 - 108 mmol/L [facility] Carbon Dioxide 25 22 - 29 mmol/L [facility] Anion Gap 15 12 - 20 [facility] Urea Nitrogen (BUN) 15 9 - 16 mg/dL [facility] Creatinine, Serum 1.09 0.5 - 1.4 mg/dL [facility] Creatinine Clr Calc Pharmacy 54.3 [facility] Comment:eGFR (calculated fro m the MDRD study equation) and eCrCl(calculated from the Cockcroft-Gault equation) are based ondifferent parameters and may not yield comparable results.If eCrCl result is absurd, please check patient'sheight/weight. Estimated Glomerular Filt Rate >60 [facility] Comment:Chronic Kidney Disea se: Estimated GFR < 60 mL/min/1.96b3Wovnpa Kidney Disease: Estimated GFR < 15 mL/min/1.73m2 Glucose 151(H) 60 - 115 mg/dL [facility] Calcium 9.5 8.4 - 10.2 mg/dL [facility] Bilirubin, Total 0.9 0.0 - 1.0 mg/dL [facility] Aspartate Amino Transferase 33 5 - 37 U/L [facility] Alanine Aminotransferase 23 0 - 40 U/L [facility] Total Protein 7.1 6.5 - 8.0 g/dL [facility] Albumin Level 4.1 3.5 - 5.0 g/dL [facility] Alkaline Phosphatase 150(H) 39 - 117 U/L [facility] 01/16/2025 9:34 AM EDT 01/16/2025 9:37 AM EDT us Generic External Data Provider LAB BLOOD ORDERAB LES Final Result [facility] [address] [place] [phone] * XR Knee 4+ Views Left (01/16/2025 9:13 AM EDT) Anatomical Region Laterality Modality Lower Extremities, Knee Left Radiogra phic Imaging 01/16/2025 9:13 AM EDT Narrative 01/16/2025 10:29 AM EDT [address] [address] XRay Report Signed Patient: Feliciano Santana MR#: M [id number] : 1955 Acct:[id number] Age/Sex: 69 / M ADM Date: 01/16/25 Loc: HO.ED Attending Dr: Ordering Physician: Emani Cervantes NP Date of Service: 01/16/25 Procedure(s): XR knee LT 4V Accession Number(s): [id number] cc: Emani Cervantes CARPENTER; Brea Maciel MD EXAMINATION: XR KNEE 4 [...] 01/16/25 1027 DD/ 0913 TD/TT: 01/16/25 1021 Manager Recruitment: Procedure Note Donotuseinterpreter, Image - 01/16/2025 [place] [address] XRay Report Signed Patient: Feliciano Santana#: M [id number] : 1955cct:[id number] Age/Sex: 69 / MADM Date: 01/16/25 Loc: HO.ED Attending Dr: Ordering Physician: Emani Cervantes NP Date of Service: 01/16/25 Procedure(s): XR knee LT 4V Accession Number(s): [id number] cc: Emani Cervantes NP; Brea Maciel MD [...] Veliz MD in OV> 01/16/25 1027 DD/ TD/TT: 01/16/25 1021 Manager Recruitment: [facility] External Provider IMG XR PROCEDURES Final Result [...] PM EDT Narrative 12/13/2024 5:56 PM EDT [place] [address] CT Scan Report Signed Patient: Feliciano Santana MR#: M [id number] : 1955 Acct:[id number] Age/Sex: 69 / M ADM Date: 12/13/24 Loc: HO.ED Attending Dr: Ordering Physician: Francisca Martinez PA-C Date of Service: 12/13/24 Procedure(s): CT Head for ICH Accession Number(s): [id number] cc: Francisca Martinez PA-C; Brea Maciel MD Report Number: [id number]: Total DLP = 687.00 mGy-cm CLINICAL HISTORY: [...] in OV> 12/13/241754 DD/ 53 TD/TT: 12/13/241753 Manager Recruitment: Procedure Note Donotuseinterpreter, Image - 12/15/[address] [place] [address] [address] Scan Report Signed Patient: Kanika Santana#: M [id number] : 6Acct:[id number] Age/Sex: 69 / MADM Date: 12/13/24 Loc: HO.ED Attending Dr: Ordering Physician: Francisca Martinez PA-C Date of Service: 12/13/24 Procedure(s): CT Head for ICH Accession Number(s): [id number] cc: Francisca Martinez PA-C; Brea Maciel MD Report Number: [id number]: Total DLP = 687.00 mGy-cm CLINICAL HISTORY: [...] in OV> 12/13/241754 DD/ 53 TD/TT: 12/13/241753 Manager Recruitment: [facility] External Provider IMG CT PROCEDURES Edited Result - Final * (ABNORMAL) Comprehensive Metabolic Panel, Fasting (12/13/2024 5:14 PM EDT) Sodium 136 135 - 145 mmol/L [facility] Potassium 4.0 3.3 - 5.1 mmol/L [facility] Chloride 104 96 - 108 mmol/L [facility] Carbon Dioxide 23 22 - 29 mmol/L [facility] Anion Gap 13 12 - 20 [facility] Urea Nitrogen (BUN) 17(H) 9 - 16 mg/dL [facility] Creatinine, Serum 1.05 0.5 - 1.4 mg/dL [facility] Creatinine Clr Calc Pharmacy 56.3 [facility] Comment:eGFR (calculated fro m the MDRD study equation) and eCrCl(calculated from the Cockcroft-Gault equation) are based ondifferent parameters and may not yield comparable results.If eCrCl result is absurd, please check patient'sheight/weight. Estimated Glomerular Filt Rate >60 [facility] Comment:Chronic Kidney Disea se: Estimated GFR < 60 mL/min/1.04x9Ujgwen Kidney Disease: Estimated GFR < 15 mL/min/1.73m2 Glucose Fasting 241(H) 60 - 99 mg/dL [facility] Comment:A fasting glucose of 126 mg/dl or greater on more than oneoccasion is considered diagnostic of diabetes. Calcium 9.3 8.4 - 10.2 mg/dL [facility] Bilirubin, Total 0.5 0.0 - 1.0 mg/dL [facility] Aspartate Amino Transferase 26 5 - 37 U/L [facility] Alanine Aminotransferase 21 0 - 40 U/L [facility] Total Protein 6.9 6.5 - 8.0 g/dL [facility] Albumin Level 3.8 3.5 - 5.0 g/dL [facility] Alkaline Phosphatase 133(H) 39 - 117 U/L [facility] 12/13/2024 5:14 PM EDT 12/13/2024 5:16 PM EDT us Generic External Data Provider LAB BLOOD ORDERAB LES Final Result [facility] [address] [place] [phone] [phone] * SARS-CoV-2 RNA, Influenza A/B, and RSV RNA, Ql NAAT (12/13/2024 5:14 PM EDT) Influenza A PCR NEGATIVE Negative [facility] Influenza B PCR NEGATIVE Negative [facility] Resp Syncy Virus RNA Qual PCR NEGATIVE Negative [facility] SARS COV2 PCR NEGATIVE Negative [facility] Comment:All test results mus t be [...] use by authorized laboratories.Testing performed on the Z[employer]act GeneXpert utilizingreal-time RT-PCR.All SARS CoV2 and positive influenza A/B results arereported to [facility]. 12/13/2024 5:14 PM EDT 12/13/2024 5:16 PM EDT us Generic External Data Provider LAB MICROBIOLOGY - GENERAL ORDERABLES Final Result Performing Organization Address [facility] Co de Phone Number [facility] [address] [place] [address] [phone] * (ABNORMAL) Protein Creatinine Ratio, Urine (09/29/2024 8:05 AM EDT) Creatinine, Urine 321.88 mg/dL [facility] Protein, Total, Random Urine 156(H) <12 mg/dL [facility] Protein/Creati nine Ratio, Ur 0.48(H) <0.2 [facility] Comment:The spot urine prote in:creatinine ratio may increase to 0.3during normal . 09/29/2024 8:05 AM EDT 09/29/2024 8:26 AM EDT us Generic External Data Provider LAB URINE ORDERAB LES Final Result Performing Organization Address [facility] de Phone Number [facility] [address] [place] [phone] * (ABNORMAL) Lipid Panel, Standard (08/19/2024 2:02 PM EDT) Triglycerides 137 <150 mg/dL [facility] Comment:Desirable Triglyceri de: less than 150 mg/dLBorderline High Triglyceride 150-199 mg/dLHigh Triglyceride: 200-499 mg/dLVery High Triglyceride: greater than or equal to 5OO mg/dL Cholesterol 180 <200 mg/dL [facility] Comment:Desirable Cholestero l: less than 200 mg/dLBorderline High Cholesterol: 200-239 mg/dLHigh Cholesterol: greater than 239 mg/dL LDL Cholesterol Calculated 106(H) <100 mg/dL [facility] Comment:Desirable LDL: less than 100 mg/dLNear Optimal/Above Optimal LDL: 110- 129 mg/dLBorderline High LDL: 130-159 mg/dLHigh LDL: 160-189 mg/dLVery High LDL: greater than or equal to 190 mg/dL HDL Cholesterol 47 >40 mg/dL [facility] Comment:Desirable HDL: great er than 40 mg/dL Note: This HDL assay may give artificially low results in patients with liver disease. Blood Venous blood specimen / Unknown 08/19/2024 2:02 PM EDT 08/19/2024 6:34 PM EDT us Santosh Reyes MD LAB BLOOD ORDERABL ES Final Result Performing Organization Address City/[facility]/ZIP Co de Phone Number [facility] [address] [place] [phone] * Hepatitis C Antibody with Reflex to HCV, RNA, Quantitative, Real-Time PCR (09/24/2023 8:28 AM EDT) Hepatitis C Antibody Nonreactive Nonreactive [facility] Comment:Antibodies to HCV no t detected; does not exclude early acuteHCV infection. Blood Venous blood specimen / Unknown 09/24/2023 8:28 AM EDT 09/24/2023 2:45 PM EDT us Brea Maciel MD LAB BLOOD ORDERABLES Final Re sult Performing Organization Address City/[facility]/ZIP Co de Phone Number [facility] [address] [place] [phone] from Last 3 Months or Most Recently Relevant to Health Maintenance Insurance [facility] INTERMEDIATE OPTIONS (HMO D-SNP) [place] [id number] [facility] STAND[facility] - [facility] Care Teams Surgical Services Manager Relationship Specialty Start Date End Date Brea Maciel MD [address] [place] [phone] PCP - General Family Medicine 09/21/23 Home [facility] 10/01/24
--- OUTSIDE RECORDS SUMMARY | 2025-02-20 13:30 | XMS_ITS | Clinical Summary ---
Author Organization [facility] Address [address] [facility] [address] [place] [phone] Phone Care Team Providers Care Prepress Operator Name Role Phone Unavailable Primary Care Provider [...] REPLACEMENT MEDICARE REPLACEMENT MEDICARE REPLACEMENT [place] [id number] Additional Source Comments The information contained in this document represents components of the legal health record. It is not the complete legal health record.[facility]
== END 2025-02-20 13:19 | disposition home or self-care (01) ==
LOC: HO.MRI 13:18
PROVIDERS: PCP Family Medicine; Visit Provider Family Medicine
DX: R42 Dizziness and giddiness (principal)
CPT/HCPCS: 70553; A9585

== ENCOUNTER 2025-03-23 15:41 | Outpatient (REF) | payer OTHER, SELFPAY ==
--- NOTE | ~2025-03-23 | XR_ITS ---
EXAMINATION: XR FEMUR, RIGHT CLINICAL INFORMATION: PAIN COMPARISON: None available. TECHNIQUE: AP and lateral views of the right femur were obtained. FINDINGS: No fracture, dislocation, or suspicious bone lesion. There is a large surgical staple in the medial femoral condyle, likely relating to prior MCL repair. There is evidence of old MCL injury. Remainder of the imaged knee and hip joints appear normal. Soft tissues demonstrate vascular calcifications but are otherwise normal. XR/XR femur RT 2V IMPRESSION: No acute soft tissue or bony abnormality. Electronically signed by: Shakir Sandhu MD 03/23/2025 04:36 PM EDT
== END 2025-03-23 15:42 | disposition home or self-care (01) ==
LOC: HO.HHCX 15:41
PROVIDERS: Visit Provider Nurse Practitioner Family
DX: M79.651 Pain in right thigh (principal)
CPT/HCPCS: 73552

== ENCOUNTER → 2025-03-23 16:06 | Outpatient (BNV) | payer OTHER, SELFPAY | PROVIDERS: Visit Provider Radiology Diagnostic Radiology | DX: M79.651 Pain in right thigh (principal) | CPT/HCPCS: 73552 ==

== ENCOUNTER 2025-03-30 07:19 | Outpatient (REF) | payer OTHER, SELFPAY ==
--- OUTSIDE RECORDS SUMMARY | 2025-03-30 07:22 | XMS_ITS | Clinical Summary ---
Author Organization Formerly [facility] Address [address] [place] [address] Care Team Providers Care Pulper Tender Name Role Phone Charis Liz Primary Care Provider [phone] William Kaplan MD Unavailable Allergies Active Allergy [...] Information: Site ID: [id number] Name: [facility] Address: [address] [place] [phone] Director: Roly Huerta M.D.,PhD us Robert Martinez MD [facility] ORDERABLES Lin amalia Result [facility] [address] [place] [phone], [place] from Last 3 Months or Most Recently Relevant to Health Maintenance Insurance [address] [place] [address] MEDICAID [id number] MEDICARE PART A & B Care Teams Pulper Tender Relationship Specialty Start Date End Date Charis Liz PA [address] [place] [address] PCP - General Internal Medicine 12/11/18 William Kaplan MD [address] [place] [address] PCP - Insurance Payer PCP 02/02/23
--- OUTSIDE RECORDS SUMMARY | 2025-03-30 07:22 | XMS_ITS | Encounter Summary ---
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 Name Role Phone rBea Maciel MD Primary Care Provider [phone] Reason for Visit * Reason Comments Med Refill Encounter Details Date Type Department Care Team ([facility] Contact Info) Description 10/16/2024 Refill [facility]INE [address] [place] [address] Brea Maciel MD [address] [place] [address] Social History Tobacco Use Types Packs/Day Years [...] documented as of this encounter Care Teams High School French Teacher Relationship Specialty Start Date End Date Brea Maciel MD [address] [place] [address] PCP - General Family Medicine 09/21/23 Home Care [facility] 10/01/24 documented as of this encounter
--- OUTSIDE RECORDS SUMMARY | 2025-03-30 07:22 | XMS_ITS ---
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 Dysphagia 02/06/2024 Anxiety 12/24/2023 Depression 12/24/2023 Diabetes mellitus ([facility] V24, [facility] V28) Hyperlipidemia 12/24/2023 Hypertension 12/24/2023 Hypothyroidism 12/24/2023 Psoriasis 12/24/2023 Continuous leakage of urine 10/05/2023 Polyp of colon 10/05/2023 Renal failure 09/27/2023 Transaminitis 09/27/2023 Chronic midline low back pain without sciatica 0 08/15/2023 Hepatic steatosis 07/24/2023 Lightheadedness 03/01/2023 Stage 3a chronic kidney disease ([facility] V24, [facility] /[facility] V28) 02/12/2023 Cough 08/26/2019 Suspected COVID-19 virus infection 08/26/2019 Reactive depression 08/26/2019 Lower abdominal pain 08/26/2019 Stage 1 chronic kidney disease 03/05/2018 Vasovagal syncope 03/05/2018 Mixed hyperlipidemia 05/10/2017 Hypothyroidism (acquired) 04/10/2017 Prostate cancer ([facility] V24, [facility] V28) 11/24 Overview (04/18/2024): Last Assessment & Plan: Referral to Urologist for further monitoring and treatment. 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 CARBOplatin (PARAPLATIN) in sodium chloride 250 mL chemo IVPB Past Treatment and Therapy Plans No past plan information found. 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
--- OUTSIDE RECORDS SUMMARY | 2025-03-30 07:22 | XMS_ITS | Encounter Summary ---
Author Organization Formerly [facility] Address [address] [place] [address] Care Team Providers Care Mems Engineer Name Role Phone Laura Hogue APRN Primary Care Provider Apple Villatoro DO Unavailable [phone] Encounter Details Date Type Department Care Team (Late st Contact Info) Description 03/01/2020 Scanned Document [facility] Colorectal Surgery [place] [address] [place] [address] Laura Hogue APRN [address] [place], [place] [id number] Social History Tobacco Use Types Packs/Day Years [...] documented as of this encounter Care Teams Mems Engineer Relationship Specialty Start Date End Date Laura Hogue APRN [address] [place] [phone] PCP - General Family Medicine 09/04/19 Apple Villatoro DO [address] [place] [address] Staff Development Manager Cardiovascular Disease 04/12/23 documented as of this encounter
--- OUTSIDE RECORDS SUMMARY | 2025-03-30 07:22 | XMS_ITS | Clinical Summary ---
Author Organization [facility] Address [address] [place] [address] Care Team Providers Care It Software Developer Name Role Phone LennieLoriefrances ESTRADA Primary Care Provider [phone] Apple Villatoro DO Unavailable [phone] Allergies Active Allergy Reactions Criticality Noted [...] Admin Instructions . Active Continuous Blood Gluc Architectural Examiner (FreeStyle Marlen 2 Bucklin) Device 1 PER YEAR Active Continuous Blood Gluc Sensor (FreeStyle Marlen 2 Sensor) [facility] [place] Admin Instructions . 10/28/2021 Active ibuprofen [...] Vaccine (1 of 2) 02/06/1975 RSV Vaccine 50 years and older and Patients (1 - Risk 50-74 years 1-dose series) 02/06/2006 Lipid Panel 03/06/2019 03/06/2018 COVID-19 Vaccine (3 [...] Comprehensive Metabolic Panel (02/28/2023 1:22 PM EDT) [facility] Glucose 409(HH) 65 - 99 mg/dL 02/28/2023 2:17 PM EDT [facility] Comment:Fasting: <100 mg/dL, Non-Fasting: <200 mg/dL (ADA 2005) Blood Urea Nitrogen (BUN) 42(H) 8 - 21 mg/dL 02/28/2023 2:17 PM [facility] Creatinine 1.5(H) 0.5 - 1.3 mg/dL 02/28/2023 2:17 PM [facility] eGFR 51(L) >59 02/28/2023 2:17 PM [facility] Comment:CKD-EPI (2020) in mL /min/1.73 sq meters. Sodium 133(L) 136 - 145 mmol/L 02/28/2023 2:17 PM [facility] Potassium 3.7 3.4 - 5.3 mmol/L 02/28/2023 2:17 PM [facility] Chloride 95(L) 98 - 107 mmol/L 02/28/2023 2:17 PM [facility] CO2 25 22 - 33 mmol/L 02/28/2023 2:17 PM [facility] Calcium 9.7 8.7 - 10.5 mg/dL 02/28/2023 2:17 PM [facility] Alkaline Phosphatase 105 45 - 128 U/L 02/28/2023 2:17 PM [facility] Aspartate Aminotrans (AST) 40 10 - 55 U/L 02/28/2023 2:17 PM [facility] Alanine Aminotrans (ALT) 59(H) 10 - 55 U/L 02/28/2023 2:17 PM [facility] Bilirubin, Total 0.5 0.2 - 1.0 mg/dL 02/28/2023 2:17 PM [facility] Protein, Total 7.7 6.3 - 8.3 g/dL 02/28/2023 2:17 PM [facility] Albumin 4.2 3.4 - 4.8 g/dL 02/28/2023 2:17 PM [facility] BUN/Creatinine Ratio 28(H) 10.0 - 25.0 Ratio 02/28/2023 2:17 PM [facility] Globulin 3.5 1.5 - 3.9 g/dL 02/28/2023 2:17 PM [facility] Albumin/Globulin Ratio 1.2 1.0 - 3.0 Ratio 02/28/2023 2:17 PM [facility] Anion Gap 13 7 - 17 02/28/2023 2:17 PM EDT [facility] Blood specimen (specimen) (Plasma/Serum) 02/28/2023 1:22 PM EDT 02/28/2023 1:48 PM EDT Result [facility] Fela BELTRE LAB BLOOD ORDERABLES Final Re sult HOSPITAL LAB See Below [facility] [address] [place] [id number] * POCT Microalbumin (02/12/2023 10:37 AM EDT) Microalbumin, POC 10.0 MG/L Creatinine Urine, POC 100.0 MG/DL Microalbumin/Cr eat Ratio, POC <30 MG/G Lot Number [id number] Record Label Internship Pass Pass Urine 02/12/2023 10:3 7 AM EDT Result [facility] Amor Velasco MD POINT OF CARE TEST [...] AM EDT 08/27/2019 8:31 AM EDT Result [facility] Jennifer Monterroso MD LAB BLOOD ORDERABLES Final [...] EDT 03/06/2018 7:56 AM EDT Radha Carter ADJUSTER LEADER LAB BLOOD ORDERABLES Final Res ult HOSPITAL [...] Decision Thoroughly Discussed with: Patient Care Teams It Software Developer Relationship Specialty Start Date End Date Laura Hogue APRN [address] [place] [phone] PCP - General Family Medicine 09/04/19 Apple Villatoro DO [address] [place] [address] Drawing In Machine Tender Cardiovascular Disease 04/12/23
--- OUTSIDE RECORDS SUMMARY | 2025-03-30 07:22 | XMS_ITS | Encounter Summary ---
Author Organization [facility] Address [address] [place] [address] Care Team Providers Care Sustainable Agriculture Faculty Name Role Phone Jaylene Kong MD Primary Care Provider [phone] Charis Liz PA-C Primary Care Provider [phone] Laura Hogue APRN Primary Care Provider [phone] Apple Villatoro DO Unavailable [phone] Encounter Details Date Type Department Care Team (Late st Contact Info) Description 11/25/2015 Scanned Document [address] [phone] Provider, Generic Social History Tobacco Use Types [...] documented as of this encounter Care Teams Sustainable Agriculture Faculty Relationship Specialty Start Date End Date Jaylene Kong MD PCP - General Internal Medicine 09/28/15 04/04/17 Charis Liz PA-C PCP - General 04/05/17 09/03/19 Laura Hogue APRN [address] [place] [phone] PCP - General Family Medicine 09/04/19 Apple Villatoro DO [address] [place] [address] Hand Buffing Wheel Former Cardiovascular Disease 04/12/23 documented as of this encounter
--- OUTSIDE RECORDS SUMMARY | 2025-03-30 07:23 | XMS_ITS | Encounter Summary ---
Author Organization [employer] Address [address] [facility] 7t [place] [address] Care Team Providers Care Doughnut Batter Mixer Name Role Phone Brea Maciel MD Primary Care Provider [phone] Encounter Details Date Type Department Care Team ([facility] Contact Info) Description 05/07/2024 Orders Only [facility] [address] [place] [address] Provider, MD Hoa Social History Tobacco Use [...] documented as of this encounter Care Teams Doughnut Batter Mixer Relationship Specialty Start Date End Date Brea Maciel MD [address] [place] [address] PCP - General Family Medicine 09/21/23 Home Care [facility] 10/01/24 documented as of this encounter
--- OUTSIDE RECORDS SUMMARY | 2025-03-30 07:23 | XMS_ITS | Clinical Summary ---
Author Organization [facility] Address [address] [facility] [address] [place] [phone] Phone Care Team Providers Care Iron Installer Name Role Phone Unavailable Primary Care Provider [...] REPLACEMENT MEDICARE REPLACEMENT MEDICARE REPLACEMENT [place] [place] [id number] Additional Source Comments The information contained in this document represents components of the legal health record. It is not the complete legal health record.[facility]
--- OUTSIDE RECORDS SUMMARY | 2025-03-30 07:23 | XMS_ITS | Clinical Summary ---
Author Organization [facility] Address [address] [place] [phone] Phone Care Team Providers Care Service Coordinator Name Role Phone Brea Maciel MD Primary Care Provider [phone] Allergies No known active allergies Medications dulaglutide [...] squamous cell carcin alexy of lower gingiva ([facility] V24, [facility] V28) 02/12/2024 Cancer Staging:Pathologic:Stage AB(pT4a, pN0, cM0) - Unsigned Overview (04/18/2024): 69 y.o. 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 Dysphagia 02/06/2024 Anxiety 12/24/2023 Depression 12/24/2023 Diabetes mellitus ([facility] V24, [facility] V28) Hyperlipidemia 12/24/2023 Hypertension 12/24/2023 Hypothyroidism 12/24/2023 Psoriasis 12/24/2023 Continuous leakage of urine 10/05/2023 Polyp of colon 10/05/2023 Renal failure 09/27/2023 Transaminitis 09/27/2023 Chronic midline low back pain without sciatica 0 08/15/2023 Hepatic steatosis 07/24/2023 Lightheadedness 03/01/2023 Stage 3a chronic kidney disease ([facility] V24, CM S/[facility] V28) 02/12/2023 Cough 08/26/2019 Suspected COVID-19 virus infection 08/26/2019 Reactive depression 08/26/2019 Lower abdominal pain 08/26/2019 Stage 1 chronic kidney disease 03/05/2018 Vasovagal syncope 03/05/2018 Mixed hyperlipidemia 05/10/2017 Hypothyroidism (acquired) 04/10/2017 Prostate cancer ([facility] V24, [facility] V28) 11/24 Overview (04/18/2024): Last Assessment & Plan: Referral to Urologist for further monitoring and treatment. Erectile dysfunction following radical prostatec jonathan 11/25/2015 Obstructive sleep apnea syndrome 08/18/2015 Snoring 06/16/2015 Essential hypertension 06/16/2015 Fatigue due to sleep pattern disturbance 016 Resolved Problems Problem Noted Date Diagnosed Date Resolved Date Oral cancer ([facility] V24, [facility] V28) 04/17/2024 04/24/2024 Encounters Date Type Department Care Team Description 02/11/2025 1:30 PM EDT Office Visit [facility] Hematology Oncology [address] [place] [address] Tawana Chang MD Primary squamous cell carcinoma of lower gingiva ([facility] V24, [facility] V28) (Primary Dx) from Last 3 Months Immunizations Immunization Administration Dates Next Due Hepatitis A Adult [...] History Date Comments Hypertension DX:Hypertension Diabetes mellitus ([facility] V 24, [facility] V28) DX:Diabetes mellitus ([facility]) Obstructive sleep apnea syndrome 08/18/2015 DX:Obstructive sleep apnea syndrome Arthritis DX:Arthritis Depression DX:Depression Chronic kidney disease DX:Chroni c kidney disease Prostate cancer ([facility] V24 , [facility] V28) DX:Prostate cancer ([facility]) Primary insomnia 04/16/2024 Family History Medical [...] Care Team (Late st Contact Info) Description 05/20/2025 11:30 AM EST Office Visit [facility] Hematology Oncology [address] [place] [address] Tawana Chang MD [address] [place] [address] Health Maintenance Due Date Last Done Comments Colorectal Cancer Screening: Colonoscopy 1955 COVID-19 Vaccine (#1) 02/06/1961 Diabetes: Annual Foot Exam 02/06/1966 Diabetes: Annual Retina Eye Exam 02/06/1966 Zoster Vaccines (1 of 2) 02/06/1975 RSV Immunization Adult Patients (1 - Risk 50-74 years 1-dose series) 02/06/2006 Hepatitis B Vaccines (1 of 3 - Risk 3-dose series) 2016 Abdominal Aortic Aneurysm (AAA) Screen 05/03/2022 Medicare Annual Wellness Visit 05/03/2022 Social [...] rid of the swelling General Yes Whitley Richey, OTR/L Note: 1: Patient will be able [...] mmol/L LAB CHEMISTRY METHOD 07/19/2024 12:34 PM EST [facility] Potassium 4.1 3.5 - 5.5 mmol/L LAB CHEMISTRY METHOD 07/19/2024 12:34 PM EST [facility] Chloride 102 96 - 110 mmol/L LAB CHEMISTRY METHOD 07/19/2024 12:34 PM EST [facility] CO2 27 21 - 32 mmol/L LAB CHEMISTRY METHOD 07/19/2024 12:34 PM [facility] Anion Gap 5 3 - 11 LAB CHEMISTRY METHOD 07/19/2024 12:34 PM [facility] Glucose 180(H) 70 - 100 mg/dL LAB CHEMISTRY METHOD 07/19/2024 12:34 PM [facility] BUN 14 5 - 25 mg/dL LAB CHEMISTRY METHOD 07/19/2024 12:34 PM [facility] Creatinine 1.13 0.70 - 1.30 mg/dL LAB CHEMISTRY METHOD 07/19/2024 12:34 PM [facility] eGFR 71 >=60 mL/min/1. 73m2 LAB CHEMISTRY METHOD 07/19/2024 12:34 PM [facility] Comment:Calculation based on the Chronic Kidney Disease Epidemiology Collaboration (CKD-EPI) equation refit without adjustment for race. BUN/Creatinine Ratio 12.4 LAB CHEMISTRY METHOD 07/19/2024 12:34 PM [facility] Calcium 9.0 8.5 - 10.5 mg/dL LAB CHEMISTRY METHOD 07/19/2024 12:34 PM [facility] Blood Venous blood specimen / Unknown Venipuncture / Unknown 07/19/2024 12:00 PM EST 07/19/2024 12:09 PM EST us Enrique Greenwood MD LAB BLOOD ORDERABLES Final Result [facility] [address] [place] [address], from Last 3 Months or Most Recently Relevant to Health Maintenance Insurance [address] [place] [id number] [facility] [employer] Member Subscriber Plan / Payer (Ef fective 2024-Present) Name:Feliciano Santana Relation to Subscriber:Self Name:Feliciano Santana Payer ID:[id number] Group ID:Not on file Type:Not on file Address: [place] [address] [address] [id number] Care Teams Service Coordinator Relationship Specialty Start Date End Date Brea Maciel MD [address] [place] [phone] PCP - General 10/08/23
--- OUTSIDE RECORDS SUMMARY | 2025-03-30 07:23 | XMS_ITS | Encounter Summary ---
Author Organization [facility] Address [address] [place] [address] Care Team Providers Care Senior Data Modeler Name Role Phone LennieLoriefrances ESTRADA Primary Care Provider Apple Villatoro DO Unavailable [phone] Encounter Details Date Type Department Care Team (Late st Contact Info) Description 08/31/2022 Scanned Document [facility] [address] [facility] [address] [place] [phone] Shabnam Merrill MD [address] [place] [address] Social History Tobacco Use Types Packs/Day Years [...] as of this encounter Care Teams Senior Data Modeler Relationship Specialty Start Date End Date Laura Hogue APRN [address] [place] [phone] PCP - General Family Medicine 09/04/19 Apple Villatoro DO [address] [place] [address] Salesperson Furs Cardiovascular Disease 04/12/23 documented as of this encounter
--- OUTSIDE RECORDS SUMMARY | 2025-03-30 07:23 | XMS_ITS | Clinical Summary ---
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 [address] [phone] from Last 3 Months or Most Recently Relevant to Health Maintenance Insurance [facility] DETENTION OPTIONS (HMO D-SNP) [facility] STANDARD D[facility] - [facility] Care Teams Package Wrapper Relationship Specialty Start Date End Date Brea Maciel MD [address] [place] [address] PCP - General Family Medicine 09/21/23 [facility] 10/01/24
--- OUTSIDE RECORDS SUMMARY | 2025-03-30 07:23 | XMS_ITS | Encounter Summary ---
Author Organization [facility] Address [address] [place] [address] Care Team Providers Care Semiconductor Testing Group Leader Name Role Phone Laura Hogue APRN Primary Care Provider Apple Villatoro DO Unavailable [phone] Encounter Details Date Type Department Care Team (Late st Contact Info) Description 08/31/2022 Scanned Document [facility] [place] [address] [place] [address] [phone] Laura Hogue APRN [address] [place], [place] [phone] Social History Tobacco Use Types Packs/Day Years [...] documented as of this encounter Care Teams Semiconductor Testing Group Leader Relationship Specialty Start Date End Date Laura Hogue APRN [address] [place] [address] PCP - General Family Medicine 09/04/19 Apple Villatoro DO [address] [place] [address] Truer Pinion And Wheel Cardiovascular Disease 04/12/23 documented as of this encounter
--- OUTSIDE RECORDS SUMMARY | 2025-03-30 07:23 | XMS_ITS | Encounter Summary ---
Author Organization [employer] Address [address] [facility] 7t [place] [address] Care Team Providers Care High School Physical Education Teacher Name Role Phone Brea Maciel MD Primary Care Provider [phone] Reason for Visit * Reason Onset Date Comments medication 01/10/2024 Encounter Details Date Type Department Care Team ([facility] Contact Info) Description 01/10/2024 Telephone [facility] [address] [place] [address] Enrique Soria, DMD [address] [place] [address] medication Social History Tobacco Use Types Packs/Day [...] Meredith Sánchez - 01/10/2024 10:17 AM EDT PA DOCTOR WADE ADDISON Feliciano Coronado is a 68 y.o. year old male.CALLED TODAY SAYING Stacy DIGINOSE HIM WITH CANCER .YESTERDAY AND HIS IN A LOT OF PAIN.CAN YOU SEND HIM SOMETHING FOR PAIN SHARIF Kumar . documented in this encounter Plan of Treatment Not on file documented as of this encounter Visit Diagnoses Not on filedocumented in this encounter Care Teams High School Physical Education Teacher Relationship Specialty Start Date End Date Brea Maciel MD [address] [place] [address] PCP - General Family Medicine 09/21/23 [facility] 10/01/24 documented as of this encounter
--- OUTSIDE RECORDS SUMMARY | 2025-03-30 07:23 | XMS_ITS | Encounter Summary ---
Author Organization [employer] Address [address] [facility] 7t [place] [address] Care Team Providers Care Collar Runner Name Role Phone Brea Maciel MD Primary Care Provider Reason for Visit * Reason Comments Med Refill Encounter Details Date Type Department Care Team ([facility] Contact Info) Description 07/27/2024 Refill [facility] P[facility] [address] [place], [place] [phone] Manjinder Tucker MD [address] [place] [address] Psoriasis Social History Tobacco Use Types Packs/Day [...] documented as of this encounter Care Teams Collar Runner Relationship Specialty Start Date End Date Brea Maciel MD [address] [place] [address] PCP - General Family Medicine 09/21/23 [facility] 10/01/24 documented as of this encounter
--- OUTSIDE RECORDS SUMMARY | 2025-03-30 07:23 | XMS_ITS | Clinical Summary ---
Author Organization [facility] Address [address] [place] [address] Care Team Providers Care Jewelry Dipper Name Role Phone Pcp, Chester Akbar MD Primary Care Provider [phone] Allergies Active Allergy Reactions Criticality Noted Date [...] Recent Progress Patient-Stated? Author Carry glucose tablets [facility] Kimberlyn Coyle, RN Take Novolog 5-10 minutes before each meal [facility] Kimberlyn Coyle, RN Schedule eye exam [facility] Kimberlyn Coyle, RN Check BG TID before breakfast, lunch and dinner and keep log [facility] Kimberlyn Coyle, RN Care Teams Jewelry Dipper Relationship Specialty Start Date End Date Pcp, Chester Akbar MD [address] [place] [address] PCP - General Multi Line Claims Adjuster 08/17/21
--- OUTSIDE RECORDS SUMMARY | 2025-03-30 07:23 | XMS_ITS | Encounter Summary ---
Author Organization [employer] Address [address] [facility] 7t [place] [address] Care Team Providers Care Bilingual Sales Representative Name Role Phone Brea Maciel MD Primary Care Provider [phone] Reason for Visit * Reason Onset Date Comments Reschedule 06/02/2024 Encounter Details Date Type Department Care Team ([facility] Contact Info) Description 06/02/2024 Telephone [facility] [address] [place] [address] Brea Maciel MD [address] [place] [address] Reschedule Social History Tobacco Use Types Packs/Day [...] documented as of this encounter Care Teams Bilingual Sales Representative Relationship Specialty Start Date End Date Brea Maciel MD [address] [place] [address] PCP - General Family Medicine 09/21/23 [facility] 10/01/24 documented as of this encounter
--- OUTSIDE RECORDS SUMMARY | 2025-03-30 07:23 | XMS_ITS | Encounter Summary ---
Author Organization [facility] Address [address] [place] [address] Care Team Providers Care Rn Security Name Role Phone Laura Hogue APRN Primary Care Provider [phone] Apple Villatoro DO Unavailable [phone] Encounter Details Date Type Department Care Team (Late st Contact Info) Description 03/08/2023 Scanned Document [address] [place] [phone] Provider, Generic Social History Tobacco Use Types [...] on filedocumented in this encounter Care Teams Rn Security Relationship Specialty Start Date End Date Laura Hogue APRN [address] [place] [address] PCP - General Family Medicine 09/04/19 Apple Villatoro DO [address] [place] [address] Agate Setter Cardiovascular Disease 04/12/23 documented as of this encounter
--- OUTSIDE RECORDS SUMMARY | 2025-03-30 07:23 | XMS_ITS | Encounter Summary ---
Author Organization [employer] Address [address] [facility] 7t [place] [address] Care Team Providers Care Machine Puller Name Role Phone Brea Maciel MD Primary Care Provider [phone] Reason for Visit * Reason Onset Date Comments Durable Medical Equipment 04/11/2024 Encounter Details Date Type Department Care Team ([facility] st Contact Info) Description 04/11/2024 Telephone [facility] [address] [place] [address] Brea Maciel MD [address] [place] [address] Durable Medical Equipment Social History Tobacco Use [...] 04/11/2024 3:09 PM EST Tc from [facility] ([facility]) requesting DME supply for pt Shower Chair, Race toilet seat with hand rest, walker with seat . Callback number [phone] documented in this encounter Plan of Treatment Not on file documented as of this encounter Visit Diagnoses Not on filedocumented in this encounter Additional Health Concerns Assessment Noted Time PHQ-9 Depression Total Score: 10 024 11:21 AM EDT documented as of this encounter Care Teams Machine Puller Relationship Specialty Start Date End Date Brea Maciel MD [address] [place] [address] PCP - General Family Medicine 09/21/23 [facility] 10/01/24 documented as of this encounter
--- OUTSIDE RECORDS SUMMARY | 2025-03-30 07:23 | XMS_ITS | Encounter Summary ---
Author Organization [employer] Address [address] [facility] 7t [place] [address] Care Team Providers Care Helpdesk Administrator Name Role Phone Brea Maciel MD Primary Care Provider [phone] Reason for Visit * Reason Comments Med Refill Encounter Details Date Type Department Care Team ([facility] Contact Info) Description 05/01/2024 Refill [facility] MED [facility] PEDS [address] [place], [place] [phone] Manjinder Tucker MD [address] [place] [address] Psoriasis Social History Tobacco Use Types Packs/Day [...] documented as of this encounter Care Teams Helpdesk Administrator Relationship Specialty Start Date End Date Brea Maciel MD [address] [place] [address] PCP - General Family Medicine 09/21/23 [facility] 10/01/24 documented as of this encounter
--- OUTSIDE RECORDS SUMMARY | 2025-03-30 07:23 | XMS_ITS | Encounter Summary ---
Author Organization [employer] Address [address] [facility] 7t [place] [address] Care Team Providers Care Apparatus Repair Mechanic Name Role Phone Brea Maciel MD Primary Care Provider [phone] Encounter Details Date Type Department Care Team ([facility] Contact Info) Description 07/22/2024 Orders Only [facility] [address] [place] [address] Provider, MD Hoa Social History Tobacco Use [...] documented as of this encounter Care Teams Apparatus Repair Mechanic Relationship Specialty Start Date End Date Brea Maciel MD [address] [place] [address] PCP - General Family Medicine 09/21/23 [facility] 10/01/24 documented as of this encounter
--- OUTSIDE RECORDS SUMMARY | 2025-03-30 07:23 | XMS_ITS | Patient Health Record ---
Author Organization [facility] enter Address [address] [place] [address] Care Team Providers Care Quality Assurance Intern Name Role Phone Laura Hogue Primary Care Provider [phone] Allergies Allergen (clinical drug ingredient) Drug/Non Drug [...] Duration: 999 days Dx I10 Active Pen [place] 3/16 31G X 5 MM use with insulin subcutaneously daily with lantus. E11.22; Duration: 90 days egyptian labels please Active Gabapentin 400 MG 1 [...] 1 tab(s) Orally qhs; Duration: 90 days egyptian labels please Unknown Blood Pressure Kit - [...] O nce a day; Duration: 90 days egyptian labels please 01/09/2020 Active Atorvastatin Calcium 10 MG 1 tablet Orally at bedtime (once a day); Duration: 90 days egyptian labels please Active Metoprolol Succinate ER 25 [...] Orally twice a day; Duration: 90 days egyptian labels please Active FreeStyle Marlen 2 [place] - 1 PER YEAR; Duration: 1 Active amLODIPine Besylate 10 MG 1 tablet Orally daily; Duration: 90 days Active Pantoprazole Sodium 40 MG 1 tablet Orally Once a day; Duration: 30 day(s) 08/29/2021 Active Losartan Potassium 100 MG as directed Orally daily; Duration: 90 days egyptian labels please 02/24/2019 Active Glucometer 1 as directed intradermal tid qac; Duration: 999 days 07/17/2022 Active Chlorthalidone 25 mg 1 tablet in the morning with food Orally Once a day; Duration: 90 days egyptian labels please Active Sertraline HCl 100 MG 1.5 tablets Orally Once a day; Duration: 90 days Active Immunizations Vaccine Route Administration Date Status Comme nts Novel [id number], all formulations Unknown 05/14/2009 Administered ([facility])Status:Com pleted Influenza (split), 3 yrs and above Unknown 05/05/2010 Administered ([facility])Status:Com pleted Influenza (split), 3 yrs and above Unknown 06/09/2010 Administered ([facility])Status:Com pleted Fluarix Quadrivalent IM Intramuscular 03/10/2019 Administe red JUAN DIEGO well. No adverse reaction oted. Fluarix Quadrivalent IM Intramuscular 03/01/2020 Administe red COVID-19 Vaccine(Moderna) 2nd dose IM Intramuscular 10/14/2020 Administered COVID-19 Vaccine(Moderna) 1st dose IM Intramuscular 09/14/2020 Administered EUA fact sheet given Tdap Unknown 12/01/2010 Administered ([facility])Status: Com pleted Social History Tobacco Use: Social [...] with others, in a hotel, in a assisted, living outside on the street, on a beach, or in a park) Are you worried about losing your housing? No What is the highest level of school that you have finished? High school diploma or GED What is your current work situation? Otherwise unemployed but not seeking work (ex. 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 Stress is when someone feels tense, nervous, anxious, or cant sleep at night because their mind is troubled Very much In the past year have you spent more than 2 nights in a row in a retirement, correction, nursing home center, or juvenile correctional facility? No Are [...] Peripheral circulatory disorder associated with diabetes mellitus (547009055) Type 2 diabetes mellitus with other circulatory 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s (E11.59) 2015 Active confirmed (Migrated)unc ontrolled sugar level over 200 Problem Hyperglycemia due to type 2 diabetes mellitus (871294351133039) Type 2 diabetes mellitus with hyperglycemia (E11.65) Active confirmed Problem Generalized anxiety disorder (28672709) Generalized anxiety disorder (F41.1) Active confirmed Problem Chronic pain (68864921) Other chronic pain (G89.29) Active confirmed Problem Chronic kidney disease due to hypertension (120343149459494) Hypertensive chronic kidney disease with stage 1 through stage 4 chronic kidney disease, or unspecified chronic kidney disease (I12.9) Active confirmed Problem Localized, primary osteoarthritis of the wrist (632613262) Primary osteoarthritis, 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) Active confirmed Problem Localized, primary osteoarthritis of the hand (663638017) Primary osteoarthritis, right hand (M19.041) Active confirmed Problem Pes planus (16194646) Flat foot [pes planus] (acquired), right foot (M21.41) Active confirmed Problem Pes planus (50451306) Flat foot [pes planus] (acquired), left foot (M21.42) Active confirmed Problem Cervicalgia (61783565) Cervicalgia (M54.2) Active confirmed C2, C4- per X-ray: C/spine loss of lordosis to Kyphosis Disc deg C7-T1 Spondylosis Problem Gastroesophageal reflux disease without esophagitis (562640598) Gastroesophageal reflux disease without esophagitis (K21.9) Active confirmed Problem Vertigo (126282541) Vertigo (R42) Active confirmed Problem Erectile dysfunction (disorder) (455785096) Erectile dysfunction, unspecified erectile dysfunction type (N52.9) Active confirmed Problem Arthritis (0832265) Arthritis (M19.90) Active confirmed Problem Elevated liver enzymes level (047250733) Elevated liver enzymes (R74.8) Active confirmed Problem Depressive disorder (48455217) Depressive disorder (F32.9) Active confirmed Problem History of malignant neoplasm of prostate (464272053) History of prostate cancer (Z85.46) Active confirmed Problem Steatosis of liver (851384367) Hepatic steatosis (K76.0) Active confirmed Problem Enthesopathy (07233829) Right wrist tendonitis (M77.8) Active confirmed Problem Cortical age-related cataract of both eyes (235854256678360) Cortical age-related cataract of both eyes (H25.013) Active confirmed Problem Lumbosacral spondylosis without myelopathy (92296510) 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) Active confirmed Problem Cervical spondylosis without myelopathy (787344076) Spondylosis of cervical region without myelopathy or radiculopathy (M47.812) Active confirmed Problem Chronic kidney disease stage 3 (913978226) Chronic kidney disease, stage III (moderate) (N18.30) Active confirmed Problem Articular cartilage disorder of wrist (742751633) Degenerative TFCC tear, right (M24.131) Active confirmed Problem Diabetic renal disease (989923480) Type 2 diabetes mellitus with diabetic chronic kidney disease (E11.22) Active confirmed High 09/2018, tradjenta removed due to pancreatitis Problem Schizoaffective disorder, depressive type (42775557) Schizoaffective disorder, depressive type (F25.1) Active confirmed med Problem Psoriasis (5970510) Psoriasis (L40.9) Active confirmed med Problem Long-term current use of insulin (939917046) residential current use of insulin (Z79.4) Active confirmed High Problem Nuclear senile cataract (898161678) Nuclear sclerosis of both eyes (H25.13) Active confirmed med Problem Essential hypertension (55610902) Essential (primary) hypertension (I10) Inactive confirmed 3 rechecked manually 01/06/19, just under goal of 140/90.contin ue current medications. Problem Balanitis (62944334) Balanitis (N48.1) Inactive confirmed Problem Chronic kidney disease stage 3 (disorder) (799772090) Chronic kidney disease, stage III (moderate) (N18.3) Inactive confirmed High [place] physican 08/2016 follows [place] : Stage III renal disease. to see renal in 4 months . DM since 2005 and HTn since 2013--told them I follow his Bs and tellme he sees Diabetic center at [facility] Problem Type II diabetes mellitus without 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 (536465526) Encounter for diabetic foot exam (E11.9) Inactive confirmed Problem Primary hypertension (73285785) Primary hypertension (I10) Inactive confirmed Problem Hypothyroidism (94411712) Hypothyroidism, unspecified type (E03.9) Active confirmed Med Problem Hyperlipidaemia (30831299) Hyperlipidemia, unspecified hyperlipidemia type (E78.5) Active confirmed med Problem Presbyopia (93752475) Presbyopia of both eyes (H52.4) Active confirmed [...] - Medicare Replacement Plan [address] [place] [address] [id number] Mushtaq lowryFeliciano Self - patient is the insured [employer] [address] [place], [place] [id number] Mushtaq Jeffsri lowryFeliciano Self - patient is the insured DENTAL Medicaid SECONDARY [address] [place] [address] [id number] Mushtaq Jeffsri lowry, Feliciano Self - patient is the insured [facility] Medicare Plans [address] [place] [address] [id number] Mushtaq Jeffsri lowryFeliciano Self - patient is the insured DENTAL [place] [address] [address] [place] [address] [id number] Mushtaq Ricesuma Feliciano lowry Self [...]
--- OUTSIDE RECORDS SUMMARY | 2025-03-30 07:23 | XMS_ITS | Encounter Summary ---
Author Organization [employer] Address [address] [facility] [address] 7t [place] [address] Care Team Providers Care Glost Kiln Operator Name Role Phone Brea Maciel MD Primary Care Provider [phone] Encounter Details Date Type Department Care Team ([facility] st Contact Info) Description 02/15/2024 Telephone [facility] MEDICINE [address] [place] [address] Brea Maciel MD [address] [place], [place] [phone] Social History Tobacco Use Types Packs/Day Years [...] documented as of this encounter Care Teams Glost Kiln Operator Relationship Specialty Start Date End Date Brea Maciel MD [address] [place] [address] PCP - General Family Medicine 09/21/23 Home [facility] 10/01/24 documented as of this encounter
--- OUTSIDE RECORDS SUMMARY | 2025-03-30 07:23 | XMS_ITS | Encounter Summary ---
Author Organization [employer] [facility] Address 75 [facility] 7t [place] [address] Care Team Providers Care Monotyper Name Role Phone Brea Maciel MD Primary Care Provider [phone] Encounter Details Date Type Department Care Team (Late st Contact Info) Description 07/24/2023 Orders Only [facility] [address] [place] [address] Shawn Mendez MD [address] [place] [address] Social History Tobacco Use Types Packs/Day Years [...] on filedocumented in this encounter Care Teams Monotyper Relationship Specialty Start Date End Date Brea Maciel MD [address] [place] [address] PCP - General Family Medicine 09/21/23 Home Care [facility] 10/01/24 documented as of this encounter
--- OUTSIDE RECORDS SUMMARY | 2025-03-30 07:23 | XMS_ITS | Encounter Summary ---
Author Organization [employer] Address [address] [facility] 7t [place] [address] Care Team Providers Care Sail Finisher Hand Name Role Phone Brea Maciel MD Primary Care Provider [phone] Reason for Visit * Reason Onset Date Comments FYI 08/06/2024 Encounter Details Date Type Department Care Team ([facility] Contact Info) Description 08/06/2024 Telephone [facility] MEDICINE [address] [place] [address] Brea Maciel MD [address] [place] [address] FYI Social History Tobacco Use Types Packs/Day [...] encounter Miscellaneous Notes * Telephone Encounter - Mihcelle Suero RN - 08/07/2024 11:13 AM EST Noted. Pt to follow up PRN. * Telephone Encounter - Mateo Ryan - 08/06/2024 4:45 PM EST Tc from [facility] calling in stating that they are discharging pt from speech therapy today. (08/06/2024) documented in this encounter Plan of Treatment Not on file documented as of this encounter Visit Diagnoses Not on filedocumented in this encounter Additional Health Concerns Assessment Noted Time PHQ-9 Depression Total Score: 0 07/09/19 25 8:57 AM EST documented as of this encounter Care Teams Sail Finisher Hand Relationship Specialty Start Date End Date Brea Maciel MD [address] [place] [address] PCP - General Family Medicine 09/21/23 Home Care [facility] 10/01/24 documented as of this encounter
[2025-03-30 08:07] LABS: Anion Gap 11 (12-20); Blood Urea Nitrogen 11 mg/dL (9-16); Calcium 9.3 mg/dL (8.4-10.2); Carbon Dioxide 30 mmol/L (22-29); Chloride 103 mmol/L (96-108); Estimated Glomerular Filt Rate > 60; Potassium 4.2 mmol/L (3.3-5.1); Sodium 140 mmol/L (135-145)
[2025-03-30 08:29] LABS: Protein/Creatinine Ratio, Ur 0.49 (<0.2); Total Protein Urine Random 56 mg/dL (<12)
== END 2025-03-30 07:20 | disposition home or self-care (01) ==
LOC: HO.LAB 07:19
PROVIDERS: PCP Internal Medicine; Visit Provider Internal Medicine Nephrology
DX: I12.9 Hypertensive chronic kidney disease with stage 1 through stage 4 chronic kidney disease, or unspecified chronic kidney disease (principal); N18.31 Chronic kidney disease, stage 3a; E11.22 Type 2 diabetes mellitus with diabetic chronic kidney disease
CPT/HCPCS: 36415; 80051; 82310; 82565; 82570; 83036; 84156; 84520

== ENCOUNTER 2025-04-01 10:01 | Outpatient (AMB) | payer OTHER, SELFPAY ==
--- NOTE | 2025-04-01 10:08 | HO.NEPHOV_ITS ---
Vital Signs 04/01/25 10:11 Height 5 ft 4 in Weight 144 lb 8 oz BMI 24.8 BP 134/80 Blood Pressure Location Rt brachial Position Sitting Pulse 91 Pulse Source Pulse Oximeter Pulse Oximetry (%) 99 Oxygen Delivery Method Room Air Intake Visit Reasons: 6 MO FU-Conf Carding Machine Feeder Required: Yes Carding Machine Feeder Language: Electric Motor Control Assembler Services: Carding Machine Feeder Offered & Declined ([facility] Carding Machine Feeder services refused ) Accompanied by: Sister Allergies No Known Allergies Allergy (Verified 04/01/25 10:10) HPI Comments Details: Feliciano was seen in follow up for chronic kidney disease and hypertension. He is a longstanding diabetic and hypertensive. He is known to have proteinuric chronic kidney disease for some time. He recently had diagnosis of head and neck malignancy (throat cancer) and underwent right mandibulectomy, neck exploration, tracheostomy and PEG placement. He monitors his blood sugar which is under good control. He is on multiple antihypertensive medications which is keeping his blood pressure at goal. He does not take any excessive nonsteroidal anti-inflammatories. His proteinuria precedes his recent malignancy. He has seen a antique auto museum maintenance worker in [place] long ago. He never had a renal biopsy. His renal function has been fairly stable. He denies nausea, vomiting, diarrhea, chest pain, shortness of breath, paroxysmal nocturnal dyspnea, orthopnea, pedal edema or orthostatic symptoms. He has no family history of any renal disease. 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 Chronic kidney disease Diabetes Hypertension Surgical History History of arthroplasty of knee Hx of radical prostatectomy Social History Household Members: None Housing: Apartment Do you presently have visiting nurse or other home services: No Alcohol intake: former Patient Tobacco Use Status: Former Tobacco user Second Hand Smoke Exposure: No Substance Use Type: Marijuana service: No Review of Systems Const All systems reviewed & are unremarkable except as noted in HPI and below Physical Exam Vital Signs: Last Vital Signs Pulse 91 04/01/25 10:11 BP 134/80 04/01/25 10:11 Pulse Ox 99 04/01/25 10:11 Oxygen Delivery Method Room Air 10/29/25 10:11 BMI result Body Mass Index 24.8 Const General: comfortable and no acute distress Orientation/consciousness: patient oriented x3 HEENT Head: Yes normocephalic Mouth: Normal oral and palatal mucosa present Eyes EOM: EOMs intact bilaterally Neck Neck: Yes supple Resp Auscultation: clear to auscultation bilaterally Cardio Jugular venous distension: no JVD Rate: regular rate GI Palpation (GI): Soft to palpation Auscultation: normal bowel sounds General: Yes no CVA tenderness Back/Spine/Pelvis Back: no CVA tenderness Skin General skin exam: no rashes or lesions noted Neuro General: patient oriented x3 and moves all extremities Extrem General: Yes no pedal edema Results Reviewed Nephrology Results: Hgb, (14.0-18.0) 14.0 g/dl 01/16/25 WBC, (4.8-10.8) 6.2 X10*3/uL 01/16/25 Plt Count, (160-400) 177 X10*3/uL 01/16/25 Sodium, (135-145) 140 mmol/L 03/30/25 Potassium, (3.3-5.1) 4.2 mmol/L 03/30/25 Chloride, (96-108) 103 mmol/L 03/30/25 Carbon Dioxide, (22-29) 30 mmol/L H 03/30/25 BUN, (9-16) 11 mg/dL 03/30/25 Creatinine, (0.5-1.4) 1.13 mg/dL 03/30/25 Calcium, (8.4-10.2) 9.3 mg/dL 03/30/25 Urine Creatinine 115.10 mg/dL 03/30/25 Protein/Creatinin Ratio, (<0.2) 0.49 H 03/30/25 Assessment & Plan Assessment & Plan (1) Hypertension: Code(s): I10 - Essential (primary) hypertension Category: Medical Qualifiers: Hypertension type: primary hypertension Qualified Code(s): I10 - Essential (primary) hypertension (2) CKD stage 3a, GFR 45-59 ml/min: Code(s): N18.31 - Chronic kidney disease, stage 3a Category: Medical (3) Diabetic nephropathy: Code(s): E11.21 - Type 2 diabetes mellitus with diabetic nephropathy Category: Medical Qualifiers: Diabetes mellitus type: type 2 Qualified Code(s): E11.21 - Type 2 diabetes mellitus with diabetic nephropathy Plan 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 He has H/O proteinuria. His renal functions are very close to his baseline. He had a renal ultrasound in the past which did not show any structural abnormalities of the kidney. He is on multiple antihypertensive medications to keep his blood pressure at goal. He should maintain good hydration. I am considering initiating him on SGLT2 inhibitor with time after reviewing all the evolving data. He is on angiotensin receptor malu. He avoids nonsteroidal anti- inflammatories. I would not make any medication changes today. All these have been explained in great detail. Answered all questions and follow-up appointment given. Orders: Orders Creatinine 6 Months E11. - Type 2 diabetes mellitus with diabetic nephropathy, I10 - Essential (primary) hypertension, N18.31 - Chronic kidney disease, stage 3a Electrolytes 6 Months E11. - Type 2 diabetes mellitus with diabetic nephropathy, I10 - Essential (primary) hypertension, N18.31 - Chronic kidney disease, stage 3a Protein Creatinine Ratio, Ur 6 Months E11. - Type 2 diabetes mellitus with diabetic nephropathy, I10 - Essential (primary) hypertension, N18.31 - Chronic kidney disease, stage 3a Blood Urea Nitrogen 6 Months E11. - Type 2 diabetes mellitus with diabetic nephropathy, I10 - Essential (primary) hypertension, N18.31 - Chronic kidney disease, stage 3a Hemoglobin A1c 6 Months E11. - Type 2 diabetes mellitus with diabetic nephropathy Coding Level of Care Code Est Pt Level 4 (74936) Diagnoses Primary hypertension I10 Hypertension type: primary hypertension CKD stage 3a, GFR 45-59 ml/min N18.31 Diabetic nephropathy associated with type 2 diabetes mellitus . Diabetes mellitus type: type 2
[2025-04-01 10:11] VITALS: BP 134/80; PULSE 91; O2SAT 99; BMI 24.8
--- OUTSIDE RECORDS SUMMARY | 2025-04-01 12:08 | XMS_ITS | Encounter Summary ---
Author Organization [facility] Address [address] [place] [address] Care Team Providers Care Adding Machine Operator Name Role Phone Laura Hogue APRN Primary Care Provider Apple Villatoro DO Unavailable [phone] Encounter Details Date Type Department Care Team (Late st Contact Info) Description 03/01/2020 Scanned Document [facility] Colorectal Surgery [place] [address] [place] [address] Laura Hogue APRN [address] [place], [place] [id number] Social History Tobacco Use Types Packs/Day Years [...] documented as of this encounter Care Teams Adding Machine Operator Relationship Specialty Start Date End Date Laura Hogue APRN [address] [place] [address] PCP - General Family Medicine 09/04/19 Apple Villatoro DO [address] [place] [address] Medical Lab Technologist Cardiovascular Disease 04/12/23 documented as of this encounter
--- OUTSIDE RECORDS SUMMARY | 2025-04-01 12:08 | XMS_ITS | Encounter Summary ---
Author Organization [facility] Address [address] [place] [address] Care Team Providers Care Music Education Adjunct Professor Name Role Phone Jaylene Kong MD Primary Care Provider [phone] Charis Liz PA-C Primary Care Provider [phone] Laura Hogue APRN Primary Care Provider [phone] Apple Villatoro DO Unavailable [phone] Encounter Details Date Type Department Care Team (Late st Contact Info) Description 11/25/2015 Scanned Document [address] [id number] Provider, Generic Social History Tobacco Use Types [...] documented as of this encounter Care Teams Music Education Adjunct Professor Relationship Specialty Start Date End Date Jaylene Kong MD PCP - General Internal Medicine 09/28/15 04/04/17 Charis iLz PA-C PCP - General 04/05/17 09/03/19 Laura Hogue APRN [address] [place] [address] PCP - General Family Medicine 09/04/19 Apple Villatoro DO [address] [place] [address] Electric Bath Attendant Cardiovascular Disease 04/12/23 documented as of this encounter
--- OUTSIDE RECORDS SUMMARY | 2025-04-01 12:08 | XMS_ITS | Patient Health Record ---
Author Organization [facility] enter Address [address] [place] [address] Care Team Providers Care Mold Stamper And Repairer Name Role Phone Laura Hogue Primary Care Provider [phone] Allergies Allergen (clinical drug ingredient) Drug/Non Drug [...] Duration: 999 days Dx I10 Active Pen Oakley 3/16 31G X 5 MM use with insulin subcutaneously daily with lantus. E11.22; Duration: 90 days anguillan labels please Active Gabapentin 400 MG 1 [...] 1 tab(s) Orally qhs; Duration: 90 days anguillan labels please Unknown Blood Pressure Kit - [...] O nce a day; Duration: 90 days anguillan labels please 01/09/2020 Active Atorvastatin Calcium 10 MG 1 tablet Orally at bedtime (once a day); Duration: 90 days anguillan labels please Active Metoprolol Succinate ER 25 [...] Orally twice a day; Duration: 90 days anguillan labels please Active FreeStyle Marlen 2 [place] - 1 PER YEAR; Duration: 1 Active amLODIPine Besylate 10 MG 1 tablet Orally daily; Duration: 90 days Active Pantoprazole Sodium 40 MG 1 tablet Orally Once a day; Duration: 30 day(s) 08/29/2021 Active Losartan Potassium 100 MG as directed Orally daily; Duration: 90 days anguillan labels please 02/24/2019 Active Glucometer 1 as directed intradermal tid qac; Duration: 999 days 07/17/2022 Active Chlorthalidone 25 mg 1 tablet in the morning with food Orally Once a day; Duration: 90 days anguillan labels please Active Sertraline HCl 100 MG [...] 3 yrs and above Unknown 05/05/2010 Administered ([facility])Status:Com pleted Influenza (split), 3 yrs and above Unknown 06/09/2010 Administered ([facility])Status:Com pleted Novel [id number], all formulations Unknown 05/14/2009 Administered ([facility])Status:Com pleted Tdap Unknown 12/01/2010 Administered ([facility])Status: Com pleted Social History Tobacco Use: Social [...] with others, in a hotel, in a mcfp, living outside on the street, on a beach, or in a park) Are you worried about losing your housing? No What is the highest level of school that you have finished? High school diploma or GED What is your current work situation? Otherwise unemployed but not seeking work (ex. student, retired, disabled, unpaid primary child adolescent care) In the past year, have you or [...] phone, visiting friends or family, going to restorationist or club meetings) More than 5 times a week How stressed are you? Stress is when someone feels tense, nervous, anxious, or cant sleep at night because their mind is troubled Very much In the past year have you spent more than 2 nights in a row in a long-term, mcfp, halfway center, or juvenile correctional facility? No Are [...] Peripheral circulatory disorder associated with diabetes mellitus (314839965) Type 2 diabetes mellitus with other circulatory 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s (E11.59) 2015 Active confirmed (Migrated)unc ontrolled sugar level over 200 Problem Hyperglycemia due to type 2 diabetes mellitus (805455103233290) Type 2 diabetes mellitus with hyperglycemia (E11.65) Active confirmed Problem Generalized anxiety disorder (90445649) Generalized anxiety disorder (F41.1) Active confirmed Problem Chronic pain (16784342) Other chronic pain (G89.29) Active confirmed Problem Chronic kidney disease due to hypertension (716094346462226) Hypertensive chronic kidney disease with stage 1 through stage 4 chronic kidney disease, or unspecified chronic kidney disease (I12.9) Active confirmed Problem Localized, primary osteoarthritis of the wrist (646319548) Primary osteoarthritis, 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) Active confirmed Problem Localized, primary osteoarthritis of the hand (176727808) Primary osteoarthritis, right hand (M19.041) Active confirmed Problem Pes planus (57134802) Flat foot [pes planus] (acquired), right foot (M21.41) Active confirmed Problem Pes planus (17261954) Flat foot [pes planus] (acquired), left foot (M21.42) Active confirmed Problem Cervicalgia (02613269) Cervicalgia (M54.2) Active confirmed C2, C4- per X-ray: C/spine loss of lordosis to Kyphosis Disc deg C7-T1 Spondylosis Problem Gastroesophageal reflux disease without esophagitis (373042440) Gastroesophageal reflux disease without esophagitis (K21.9) Active confirmed Problem Vertigo (927857639) Vertigo (R42) Active confirmed Problem Erectile dysfunction (disorder) (170415122) Erectile dysfunction, unspecified erectile dysfunction type (N52.9) Active confirmed Problem Arthritis (9765371) Arthritis (M19.90) Active confirmed Problem Elevated liver enzymes level (196975822) Elevated liver enzymes (R74.8) Active confirmed Problem Depressive disorder (91876644) Depressive disorder (F32.9) Active confirmed Problem History of malignant neoplasm of prostate (939181876) History of prostate cancer (Z85.46) Active confirmed Problem Steatosis of liver (457118974) Hepatic steatosis (K76.0) Active confirmed Problem Enthesopathy (65911087) Right wrist tendonitis (M77.8) Active confirmed Problem Cortical age-related cataract of both eyes (732052938062784) Cortical age-related cataract of both eyes (H25.013) Active confirmed Problem Lumbosacral spondylosis without myelopathy (76236843) 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) Active confirmed Problem Cervical spondylosis without myelopathy (166173791) Spondylosis of cervical region without myelopathy or radiculopathy (M47.812) Active confirmed Problem Chronic kidney disease stage 3 (620477973) Chronic kidney disease, stage III (moderate) (N18.30) Active confirmed Problem Articular cartilage disorder of wrist (055724094) Degenerative TFCC tear, right (M24.131) Active confirmed Problem Diabetic renal disease (220485238) Type 2 diabetes mellitus with diabetic chronic kidney disease (E11.22) Active confirmed High 09/2018, tradjenta removed due to pancreatitis Problem Schizoaffective disorder, depressive type (21874815) Schizoaffective disorder, depressive type (F25.1) Active confirmed med Problem Psoriasis (2394920) Psoriasis (L40.9) Active confirmed med Problem Long-term current use of insulin (696492682) senior care current use of insulin (Z79.4) Active confirmed High Problem Nuclear senile cataract (109571005) Nuclear sclerosis of both eyes (H25.13) Active confirmed med Problem Essential hypertension (02531407) Essential (primary) hypertension (I10) Inactive confirmed 3 rechecked manually 01/06/19, just under goal of 140/90.contin ue current medications. Problem Balanitis (32223259) Balanitis (N48.1) Inactive confirmed Problem Chronic kidney disease stage 3 (disorder) (327703163) Chronic kidney disease, stage III (moderate) (N18.3) Inactive confirmed High [place] physican 08/2016 follows [place] : Stage III renal disease. to see renal in 4 months . DM since 2005 and HTn since 2013--told them I follow his Bs and tellme he sees [facility] Problem Type II diabetes mellitus without 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 (639402892) Encounter for diabetic foot exam (E11.9) Inactive confirmed Problem Primary hypertension (87025573) Primary hypertension (I10) Inactive confirmed Problem Hypothyroidism (31046392) Hypothyroidism, unspecified type (E03.9) Active confirmed Med Problem Hyperlipidaemia (02343952) Hyperlipidemia, unspecified hyperlipidemia type (E78.5) Active confirmed med Problem Presbyopia (87488368) Presbyopia of both eyes (H52.4) Active confirmed [...] - Medicare Replacement Plan [address] [place] [address] [id number] Mushtaq lowryFeliciano Self - patient is the insured [employer] [address] [place], [place] [id number] Mushtaq Jeffsri lowryFeliciano Self - patient is the insured DENTAL Medicaid SECONDARY [address] [place] [id number] Mushtaq Jeffsri lowry, Feliciano Self - patient is the insured [facility] Medicare Plans [address] [place] [address] [id number] Mushtaq Jeffsri lowryFeliciano Self - patient is the insured [place] [address] [address] [place] [address] [id number] Mushtaq Ricesuma Feliciano lowry Self [...]
--- OUTSIDE RECORDS SUMMARY | 2025-04-01 12:08 | XMS_ITS | Clinical Summary ---
Author Organization [facility] Address [address] [place] [address] Care Team Providers Care Gambreler Name Role Phone Charis Liz Primary Care Provider [phone] William Kaplan MD Unavailable Allergies Active Allergy [...] Information: Site ID: [id number] Name: [facility] Address: [address] [place] [phone] Director: Roly Huerta M.D.,PhD us Robert Martinez MD [facility] ORDERABLES Lin amalia Result [facility] [address] [place] [phone], [place] from Last 3 Months or Most Recently Relevant to Health Maintenance Insurance * Guarantor: Feliciano Landin Account Type Relation to Patient Date of Phone Billing Address Personal/Family Self [address] [place] [address] [address] [place] [address] MEDICAID [id number] MEDICARE PART A & B Care Teams Gambreler Relationship Specialty Start Date End Date Charis Liz PA [address] [place] [address] PCP - General Internal Medicine 12/11/18 William Kaplan MD [address] [place] [address] PCP - Insurance Payer PCP 02/02/23
--- OUTSIDE RECORDS SUMMARY | 2025-04-01 12:08 | XMS_ITS | Clinical Summary ---
Author Organization [facility] Address [address] [place] [address] Phone Care Team Providers Care Rn Circulating Name Role Phone Brea Maciel MD Primary Care Provider Allergies No known active allergies Medications dulaglutide [...] squamous cell carcin alexy of lower gingiva ([facility] V24, [facility] V28) 02/12/2024 Cancer Staging:Pathologic:Stage AB(pT4a, pN0, cM0) - Unsigned Overview (04/18/2024): 69 y.o. 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 Dysphagia 02/06/2024 Anxiety 12/24/2023 Depression 12/24/2023 Diabetes mellitus ([facility] V24, [facility] V28) Hyperlipidemia 12/24/2023 Hypertension 12/24/2023 Hypothyroidism 12/24/2023 Psoriasis 12/24/2023 Continuous leakage of urine 10/05/2023 Polyp of colon 10/05/2023 Renal failure 09/27/2023 Transaminitis 09/27/2023 Chronic midline low back pain without sciatica 0 08/15/2023 Hepatic steatosis 07/24/2023 Lightheadedness 03/01/2023 Stage 3a chronic kidney disease ([facility] V24, [facility] V28) 02/12/2023 Cough 08/26/2019 Suspected COVID-19 virus infection 08/26/2019 Reactive depression 08/26/2019 Lower abdominal pain 08/26/2019 Stage 1 chronic kidney disease 03/05/2018 Vasovagal syncope 03/05/2018 Mixed hyperlipidemia 05/10/2017 Hypothyroidism (acquired) 04/10/2017 Prostate cancer ([facility] V24, [facility] V28) 11/24 Overview (04/18/2024): Last Assessment & Plan: Referral to Urologist for further monitoring and treatment. Erectile dysfunction following radical prostatec jonathan 11/25/2015 Obstructive sleep apnea syndrome 08/18/2015 Snoring 06/16/2015 Essential hypertension 06/16/2015 Fatigue due to sleep pattern disturbance 016 Resolved Problems Problem Noted Date Diagnosed Date Resolved Date Oral cancer ([facility] V24, [facility] V28) 04/17/2024 04/24/2024 Encounters Date Type Department Care Team Description 02/11/2025 1:30 PM EDT Office Visit [facility] Hematology Oncology [address] [place] [address] Tawana Chang MD Primary squamous cell carcinoma of lower gingiva ([facility] V24, [facility] V28) (Primary Dx) from Last 3 Months [...] History Date Comments Hypertension DX:Hypertension Diabetes mellitus ([facility] V 24, [facility] V28) DX:Diabetes mellitus ([facility]) Obstructive sleep apnea syndrome 08/18/2015 DX:Obstructive sleep apnea syndrome Arthritis DX:Arthritis Depression DX:Depression Chronic kidney disease DX:Chroni c kidney disease Prostate cancer ([facility] V24 , [facility] V28) DX:Prostate cancer ([facility]) Primary insomnia 04/16/2024 Family History Medical History [...] Description 05/20/2025 11:30 AM EST Office Visit [facility] Hematology Oncology [address] [place] [address] Tawana Chang MD [address] [place] [address] Health Maintenance Due Date Last Done Comments [...] LAB CHEMISTRY METHOD 07/19/2024 12:34 PM EST [facility] Potassium 4.1 3.5 - 5.5 mmol/L LAB CHEMISTRY METHOD 07/19/2024 12:34 PM EST [facility] Chloride 102 96 - 110 mmol/L LAB CHEMISTRY METHOD 07/19/2024 12:34 PM EST [facility] CO2 27 21 - 32 [...] Greenwood MD LAB BLOOD ORDERABLES Final Result [facility] [address] [place] [address], from Last 3 Months or Most Recently Relevant to Health Maintenance Insurance [address] [place] [id number] [facility] [employer] Member Subscriber Plan / Payer (Ef fective 2024-Present) Name:Feliciano Santana Relation to Subscriber:Self Name:Feliciano Santana Payer ID:[id number] Group ID:Not on file Type:Not on file Address: [place] [address] [address] [address] Care Teams Rn Circulating Relationship Specialty Start Date End Date Brea Maciel MD [address] [place] [phone] PCP - General 10/08/23
--- OUTSIDE RECORDS SUMMARY | 2025-04-01 12:08 | XMS_ITS | Encounter Summary ---
Author Organization [facility] [facility] Address [address] [facility] [address] [place] [address] Care Team Providers Care Mechanotherapist Name Role Phone Brea Maciel MD Primary Care Provider [phone] Reason for Visit * Reason Comments Med Refill Encounter Details Date Type Department Care Team ([facility] Contact Info) Description 10/16/2024 Refill [facility] [address] [place] [address] Brea Maciel MD [address] [place] [address] Social History Tobacco Use Types Packs/Day Years [...] documented as of this encounter Care Teams Mechanotherapist Relationship Specialty Start Date End Date Brea Maciel MD [address] [place] [address] PCP - General Family Medicine 09/21/23 Home [facility] 10/01/24 documented as of this encounter
--- OUTSIDE RECORDS SUMMARY | 2025-04-01 12:08 | XMS_ITS ---
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 Dysphagia 02/06/2024 Anxiety 12/24/2023 Depression 12/24/2023 Diabetes mellitus ([facility] V24, [facility] V28) Hyperlipidemia 12/24/2023 Hypertension 12/24/2023 Hypothyroidism 12/24/2023 Psoriasis 12/24/2023 Continuous leakage of urine 10/05/2023 Polyp of colon 10/05/2023 Renal failure 09/27/2023 Transaminitis 09/27/2023 Chronic midline low back pain without sciatica 0 08/15/2023 Hepatic steatosis 07/24/2023 Lightheadedness 03/01/2023 Stage 3a chronic kidney disease ([facility] V24, [facility] /[facility] V28) 02/12/2023 Cough 08/26/2019 Suspected COVID-19 virus infection 08/26/2019 Reactive depression 08/26/2019 Lower abdominal pain 08/26/2019 Stage 1 chronic kidney disease 03/05/2018 Vasovagal syncope 03/05/2018 Mixed hyperlipidemia 05/10/2017 Hypothyroidism (acquired) 04/10/2017 Prostate cancer ([facility] V24, [facility] V28) 11/24 Overview (04/18/2024): Last [...] squamous cell carcin alexy of lower gingiva ([facility] V24, [facility] V28) Treatment Medications Current Day (Day 1 [...] squamous cell carcin alexy of lower gingiva ([facility]/HCC V24, CMS/HCC V28) Treatment Courses* Course 1 05/26/2024 - 07/11/2024 Treatment Sites Treatment Period Fraction Dose Fractions Total Dose Rt lower gum/Bneck 05/26/2024 - 07/11/2024 200 / 200 cGy 30 / 30 6,000 / 6,000 cGy Resolved Problems Problem Noted Date Diagnosed Date Resolved Date Oral cancer ([facility]/HCC V24, CMS/HCC V28) 04/17/2024 04/24/2024
--- OUTSIDE RECORDS SUMMARY | 2025-04-01 12:08 | XMS_ITS | Clinical Summary ---
Author Organization [facility] Address [address] [place] [address] Care Team Providers Care Flavorings Compounder Name Role Phone LennieLoriefrances ESTRADA Primary Care Provider [phone] Apple Villatoro DO Unavailable [phone] Allergies Active Allergy Reactions Criticality Noted [...] Admin Instructions . Active Continuous Blood Gluc Brusher And Shearer (FreeStyle Marlen 2 Greenview) Device 1 PER YEAR Active Continuous Blood Gluc Sensor (FreeStyle Marlen 2 Sensor) [facility] See Admin Instructions . 10/28/2021 Active ibuprofen [...] Comprehensive Metabolic Panel (02/28/2023 1:22 PM EDT) [facility] Glucose 409(HH) 65 - 99 mg/dL 02/28/2023 2:17 PM EDT [facility] Comment:Fasting: <100 mg/dL, Non-Fasting: <200 [...] 7 - 17 02/28/2023 2:17 PM EDT [facility] Blood specimen (specimen) (Plasma/Serum) 02/28/2023 1:22 PM EDT 02/28/2023 1:48 PM EDT Result [facility] Fela BELTRE LAB BLOOD ORDERABLES Final Re sult HOSPITAL LAB See Below [facility] [address] [place] [address] * POCT Microalbumin (02/12/2023 10:37 AM EDT) Microalbumin, POC 10.0 MG/L Creatinine Urine, POC 100.0 MG/DL Microalbumin/Cr eat Ratio, POC <30 MG/G Lot Number [id number] Case Worker Pass Pass Urine 02/12/2023 10:3 7 AM EDT Result [facility] Amor Velasco MD POINT OF [...] AM EDT 08/27/2019 8:31 AM EDT Result [facility] Jennifer Monterroso MD LAB BLOOD [...] EDT 03/06/2018 7:56 AM EDT Radha Carter [facility] LAB BLOOD ORDERABLES Final Res ult HOSPITAL [...] Decision Thoroughly Discussed with: Patient Care Teams Flavorings Compounder Relationship Specialty Start Date End Date Laura Hogue APRN [address] [place] [id number] PCP - General Family Medicine 09/04/19 Apple Villatoro DO [address] [place] [id number] [facility] Att[facility] Cardiovascular Disease 04/12/23
--- OUTSIDE RECORDS SUMMARY | 2025-04-01 12:09 | XMS_ITS | Encounter Summary ---
Author Organization [employer] Address [address] [facility] [address] [place] [address] Care Team Providers Care Canteen Manager Name Role Phone Brea Maciel MD Primary Care Provider [phone] Reason for Visit * Reason Onset Date Comments Reschedule 06/02/2024 Encounter Details Date Type Department Care Team ([facility] Contact Info) Description 06/02/2024 Telephone [facility] [address] [place] [address] Brea Maciel MD [address] [place] [address] Reschedule Social History Tobacco Use Types Packs/Day [...] documented as of this encounter Care Teams Canteen Manager Relationship Specialty Start Date End Date Brea Maciel MD [address] [place] [id number] PCP - General Family Medicine 09/21/23 [facility] 10/01/24 documented as of this encounter
--- OUTSIDE RECORDS SUMMARY | 2025-04-01 12:09 | XMS_ITS | Clinical Summary ---
Author Organization [employer] Address [address] [facility] 7t [place] [address] Care Team Providers Care Director Power Name Role Phone Brea Maciel MD Primary Care Provider [phone] Allergies Active Allergy Reactions Criticality Noted Date [...] 200 each 11 4 Active Continuous Glucose Harbor Pilot (FreeStyle Marlen 2 Reynolds) device 1 Units 4 times daily. 1 [...] Active pen needle 32G x 4 mm [facility] USE TO INJECT INSULIN QID 200 each [...] 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, with long-term current use of insulin ([facility]) 1 Units every 14 (fourteen) days. 2 [...] 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, with long-term current use of insulin ([facility]) Inject 28 Units under the skin at bedtime. 54 mL 1 5 Active Tirzepatide 2.5 MG/0.5ML solution auto-injectorIn dications:Type 2 diabetes mellitus without 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, with long-term current use of insulin ([facility]) Inject 2.5 mg under the skin 1 [...] (09/24/2024): Followed by Dr. Jakob Harrell at [facility] discharge follow-up 04/16/2024 Assessment & [...] (01/23/2025): 69 y.o. 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 Dysphagia 02/06/2024 Throat cancer ([facility]) 01/28/2024 Assessment & Plan (08/19/2024 1:37 PM [...] Colon Cancer Screening for recheck. Referring to Podiatry Assistant. Continuous leakage of urine 10/05/2023 Assessment & [...] in one month. Relevant Medications Continuous Glucose Harbor Pilot (Freestyle Marlen 2 Reynolds) device Continuous Glucose Harbor Pilot (Freestyle Marlen 2 Sensor) misc Insulin glargine [...] of therapy Erectile dysfunction 11/25/2015 Prostate cancer ([facility]) 11/25/2015 Assessment & Plan (09/21/2023 1:54 PM [...] losartan and amlodipine, will send medication to [facility]. Also he does not have a bp monitor at home, will send one, follow up with pcp in 2-3 months Fatigue due to sleep pattern disturbance 016 Resolved Problems Problem Noted Date Diagnosed Date Resolved Date Community acquired pneumonia 08/26/2019 09/21/2023 Encounters Date Type Department Care Team Description 03/23/2025 4:00 PM EDT Office Visit [facility] [address] [place] [phone] Odessa Joyce, MONIQUE Gluteal pain (Primary Dx) 03/23/2025 Orders Only [facility] [address] [place] [address] Cameron Joycee, CONVEYOR SYSTEM OPERATOR 03/23/2025 Travel 03/10/2025 Results Follow-Up [facility] [address] [place] [address] Brea Maciel MD Mr Brain w/ and w/o Contrast 03/09/2025 Telephone [facility] [employer] [facility] [address] [place], [place] [phone] Brea Maciel MD 03/02/2025 11:30 AM EDT Office Visit [facility] [address] [place], [place] [phone] Brea Maciel MD Chronic pain of left knee (Primary Dx); Type 2 diabetes mellitus with hyperglycemia, with long-term current use of insulin ([facility]); Encounter for immunization; Encounter for vaccination 03/02/2025 Travel 02/27/2025 Telephone [facility] [address] [place] [address] Brea Maciel MD chart prep 02/25/2025 Refill [facility] [address] [place] [address] Brea Maciel MD 02/19/2025 Telephone [facility] [address] [place] [address] Brea Maciel MD Appointment Request 02/09/2025 Telephone [facility] [address] [place] [address] Brea Maciel MD No Show 02/03/2025 Telephone [facility] [address] [place] [address] Brea Maciel MD chart prep 01/23/2025 2:00 PM EDT Office Visit [facility] [address] [place] [address] Brea Maciel MD Type 2 diabetes mellitus without 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, with long-term current use of insulin ([facility]) (Primary Dx); Essential hypertension; Chronic pain of left knee; Hypothyroidism, unspecified type; Encounter for immunization 01/23/2025 Travel 01/16/2025 Orders Only GENERIC EXTERNAL DATA DEPARTMENT Provider, Generic External Data 01/14/2025 Telephone [facility] [address] [place] [address] Brea Maciel MD chart prep 01/01/2025 Telephone [facility] [address] [place] [address] Brea Maciel MD 12/31/2024 Telephone [facility] [address] [place], [place] [phone] Brea Maciel MD from Last 3 Months [...] hyperglycemia, with long-term current use of insulin ([facility]) POCT GLUCOSE Routine 03/02/2025 12:09 PM EDT Type 2 diabetes mellitus with hyperglycemia, with long-term current use of insulin ([facility]) HP LINK DIABETIC FOOT EXAM Routine 03/02/2025 MR BRAIN W AND WO CONTRAST Routine 02/22/2025 7:33 PM EDT Dizziness on standing POCT GLUCOSE Routine 01/23/2025 2:48 PM EDT Type 2 diabetes mellitus without 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, with long-term current use of insulin ([facility]) CT KNEE WO CONTRAST LEFT Routine 01/16/2025 [...] PM EDT Narrative 03/23/2025 4:39 PM EDT [facility] [address] [place] [address] XRay Report Signed Patient: Feliciano Santana MR#: M [id number] : 1955 Acct:[id number] Age/Sex: 70 / M ADM Date: 03/23/25 [facility]: Odessa SAWANTP Ordering Physician: Odessa Joyce Date of Service: 03/23/25 Procedure(s): XR femur RT 2V Accession Number(s): [id number] cc: Odessa Joyce Reason for Exam: PAIN [...] 03/23/25 1636 DD/ 1606 TD/TT: 03/23/25 1632 Workforce Development Program Director: Procedure Note Donotuseinterpreter, Image - 03/23/[address] [address] XRay Report Signed Patient: Feliciano SantanaMR#: M [id number] : 1955cct:[id number] Age/Sex: 70 / MADM Date: 03/23/25 Loc: HO.[facility]X Attending Dr: Odessa AMAYA Ordering Physician: Odessa Joyce Date of Service: 03/23/25 Procedure(s): XR femur RT 2V Accession Number(s): [id number] cc: Odessa Joyce Reason for Exam: PAIN [...] 03/23/25 1636 DD/ 1606 TD/TT: 03/23/25 1632 Workforce Development Program Director: Odessa AMAYA IMG XR PROCEDURES Edited Resul t - Final * (ABNORMAL) POCT Hgb A1c (03/02/2025 12:10 PM EDT) [facility] Hemoglobin A1C 7.1(A) 4.0 - 5.7 % QC Media Lot # [id number] Lot# Expiration Date [id number] Blood 03/02/2025 12:1 0 PM EDT Result [facility] Brea Maciel MD POINT OF CARE TEST ENTER/EDIT ORDERABLES Final Result * POCT Glucose (03/02/2025 12:09 PM EDT) Only the most recent of2 resultswithin the time period is included. [facility] Glucose Blood, POC 109 60 - 200 [...] PM EDT Narrative 02/22/2025 7:36 PM EDT [place] [address] Magnetic Resonance Report Signed Patient: Feliciano Santana MR#: M [id number] : 1955 Acct:[id number] Age/Sex: 70 / M ADM Date: 02/20/25 Loc: HO.MRI Attending Dr: Brea Maciel MD Ordering Physician: Brea Maciel MD Date of Service: 02/20/25 Procedure(s): MR head/brain wo/w con Accession Number(s): [id number] cc: Brea Maciel MD Reason for Exam: [...] in OV> 02/22/251934 DD/ 32 TD/TT: 02/22/251932 Workforce Development Program Director: Procedure Note Donotuseinterpreter, Image - 02/22/2025 [place] [address] Magnetic Resonance Report Signed Patient: Kanika Santana#: M [id number] : 1955cct:[id number] Age/Sex: 70 / MADM Date: 02/20/25 Loc: HO.MRI Attending Dr: Brea Maciel MD Ordering Physician: Brea Maciel MD Date of Service: 02/20/25 Procedure(s): MR head/brain wo/w con Accession Number(s): [id number] cc: Brea Maciel MD Reason for Exam: [...] in OV> 02/22/251934 DD/ 32 TD/TT: 02/22/251932 Workforce Development Program Director: us Brea Maciel MD IMG MRI PROCEDURES Edited Res ult - Final * CT Kne w/o Contrast Left (01/16/2025 1:22 PM EDT) Anatomical Region Laterality Modality Lower Extremities, Knee Left Computed Tomography 01/16/2025 1:22 PM EDT Narrative 01/16/2025 2:53 PM EDT [address] [address] [address] Scan Report Signed Patient: Feliciano Santana MR#: M [id number] : 1955 Acct:[id number] Age/Sex: 69 / M ADM Date: 01/16/25 Loc: HO.ED Attending Dr: Ordering Physician: Emani Cervantes NP Date of Service: 01/16/25 Procedure(s): CT knee LT wo IV con Accession Number(s): [id number] cc: Emani Cervantes WIRE LATHER; Brea Maciel MD Report Number: [id number]: Total DLP = 207.00 mGy-cm EXAMINATION: CT [...] 01/16/25 1450 DD/ 1322 TD/TT: 01/16/25 1441 Workforce Development Program Director: Procedure Note Donotuseinterpreter, Image - 01/16/[address] [address] [address] Scan Report Signed Patient: Kanika Santana#: M [id number] : 1955cct:[id number] Age/Sex: 69 / MADM Date: 01/16/25 Loc: HO.ED Attending Dr: Ordering Physician: Emani Cervantes NP Date of Service: 01/16/25 Procedure(s): CT knee LT wo IV con Accession Number(s): [id number] cc: Emani Cervantes NP; Brea Maciel MD Report Number: [id number]: Total DLP = 207.00 mGy-cm EXAMINATION: CT [...] 01/16/25 1450 DD/ 1322 TD/TT: 01/16/25 1441 Workforce Development Program Director: [facility] External Provider IMG CT PROCEDURES Final Result * Lower Extremity Venous Duplex (01/16/2025 9:46 AM EDT) 01/16/2025 9:46 AM EDT Narrative [facility] - 01/16/2025 10:31 AM EDT [address] [address] Ultrasound Report Signed Patient: Feliciano Santana MR#: M [id number] : 1955 Acct:[id number] Age/Sex: 69 / M ADM Date: 01/16/25 Loc: .ED Attending Dr: Ordering Physician: Emani Cervantes NP Date of Service: 01/16/25 Procedure(s): US venous duplex LE LT Accession Number(s): [id number] cc: Emani Cervantes NP; Brea Maciel MD [...] OV> 01/16/25 1029 DD/ TD/TT: 01/16/25 1002 Workforce Development Program Director: Procedure Note Donotuseinterpreter, Image - 01/16/[address] [address] Ultrasound Report Signed Patient: Kanika Santana#: M [id number] : 1955cct:[id number] Age/Sex: 69 / MADM Date: 01/16/25 Loc: HO.ED Attending Dr: Ordering Physician: Emani Cervantes NP Date of Service: 01/16/25 Procedure(s): US venous duplex LE LT Accession Number(s): [id number] cc: Emani Cervantes NP; Brea Maciel MD [...] OV> 01/16/25 1029 DD/ TD/TT: 01/16/25 1002 Workforce Development Program Director: us [facility] External Provider CV VASC ULAR PROCEDURES Final Result [facility] [address] [place] [address] * (ABNORMAL) CBC auto differential (01/16/2025 9:34 AM EDT) Only the most recent of2 resultswithin the time period is included. White Blood Count 6.2 4.8 - 10.8 X10*3/uL [facility] Red Blood Count 5.18 4.60 - 5.80 X10*6/uL [facility] Hemoglobin 14.0 14.0 - 18.0 g/dl [facility] Hematocrit 40.6(L) 42.0 - 52.0 % [facility] Mean Corpuscular Volume 78.4(L) 80.0 - 98.0 fL [facility] Mean Corpuscular Hemoglobin 27.0 27.0 - 33.0 pg [facility] Mean Corpuscular HGB Conc 34.5 31.0 - 36.0 g/dl [facility] Red Cell Distribution Width 15.4 11.0 - 16.0 % [facility] Platelet Count 177 160 - 400 X10*3/uL [facility] Mean Platelet Volume 9.2(L) 9.4 - 12.4 fL [facility] Neutrophils Percent Auto 76.1(H) 45 - 73 % [facility] Imm Gran Pct Auto 0.8(H) 0.0 - 0.4 % [facility] Lymphocytes Percent Auto 11.1(L) 20 - 40 % [facility] Monocytes Percent Auto 11.1(H) 2 - 11 % [facility] Eosinophils Percent Auto 0.6 0 - 4 % [facility] Basophils Percent Auto 0.3 0 - 2 % [facility] NRBC Pct Auto 0.0 0.0 - 0.2 /100WBC [facility] Neutrophils Absolute Auto 4.7 2.0 - 8.3 x10*3/uL [facility] Imm Gran Abs Auto 0.05(H) 0.00 - 0.03 X10*3/uL [facility] Lymphocytes Absolute Auto 0.7(L) 1.2 - 4.9 X10*3/uL [facility] Monocytes Absolute Auto 0.7 0.1 - 1.2 X10*3/uL [facility] Eosinophils Absolute Auto 0.0 0.0 - 0.4 X10*3/uL [facility] Basophils Absolute Auto 0.0 0.0 - 0.2 X10*3/uL [facility] NRBC Abs Auto 0.000 0.0 - 0.012 X10*3/uL [facility] 01/16/2025 9:34 AM EDT 01/16/2025 9:37 AM EDT Generic External Data Provider LAB BLOOD ORDERAB LES Final Result Performing Organization Address [facility] Co de Phone Number [facility] [address] [place] [phone] * (ABNORMAL) Sed Rate by Modified Leahren (01/16/2025 9:34 AM EDT) Only the most recent of2 resultswithin the time period is included. Erythrocyte Sedimentation Rate 21(H) 0 - 15 MM/HR [facility] Comment:Patients with polycy themia and many hemoglobin abnormalitiesmay have depressed sed rates whereas patients with anemiamay have elevated sed rates. 01/16/2025 9:34 AM EDT 01/16/2025 9:37 AM EDT Generic External Data Provider LAB BLOOD ORDERAB LES Final Result Performing Organization Address [facility] Co de Phone Number [facility] [address] [place] [phone] * (ABNORMAL) C-reactive Protein (01/16/2025 9:34 AM EDT) Only the most recent of2 resultswithin the time period is included. C Reactive Protein 1.18(H) < or = 0.50 mg/dL [facility] 01/16/2025 9:34 AM EDT 01/16/2025 9:37 AM EDT us Generic External Data Provider LAB BLOOD ORDERAB LES Final Result [facility] [address] [place] [address] [phone] * (ABNORMAL) Comprehensive Metabolic Panel (01/16/2025 9:34 AM EDT) Only the most recent of2 resultswithin the time period is included. Sodium 138 135 - 145 mmol/L [facility] Potassium 3.9 3.3 - 5.1 mmol/L [facility] Chloride 102 96 - 108 mmol/L [facility] Carbon Dioxide 25 22 - 29 mmol/L [facility] Anion Gap 15 12 - 20 [facility] Urea Nitrogen (BUN) 15 9 - 16 mg/dL [facility] Creatinine, Serum 1.09 0.5 - 1.4 mg/dL [facility] Creatinine Clr Calc Pharmacy 54.3 [facility] Comment:eGFR (calculated fro m the MDRD study equation) and eCrCl(calculated from the Cockcroft-Gault equation) are based ondifferent parameters and may not yield comparable results.If eCrCl result is absurd, please check patient'sheight/weight. Estimated Glomerular Filt Rate >60 [facility] Comment:Chronic Kidney Disea se: Estimated GFR < 60 mL/min/1.99o8Dyvwps Kidney Disease: Estimated GFR < 15 mL/min/1.73m2 Glucose 151(H) 60 - 115 mg/dL [facility] Calcium 9.5 8.4 - 10.2 mg/dL [facility] Bilirubin, Total 0.9 0.0 - 1.0 mg/dL [facility] Aspartate Amino Transferase 33 5 - 37 U/L [facility] Alanine Aminotransferase 23 0 - 40 U/L [facility] Total Protein 7.1 6.5 - 8.0 g/dL [facility] Albumin Level 4.1 3.5 - 5.0 g/dL [facility] Alkaline Phosphatase 150(H) 39 - 117 U/L [facility] 01/16/2025 9:34 AM EDT 01/16/2025 9:37 AM EDT us Generic External Data Provider LAB BLOOD ORDERAB LES Final Result Performing Organization Address City/State/[facility] Co de Phone Number [facility] [address] [place] [phone] * XR Knee 4+ Views Left (01/16/2025 9:13 AM EDT) Anatomical Region Laterality Modality Lower Extremities, Knee Left Radiogra phic Imaging 01/16/2025 9:13 AM EDT Narrative 01/16/2025 10:29 AM EDT [address] [address] XRay Report Signed Patient: Feliciano Santana MR#: M [id number] : 1955 Acct:[id number] Age/Sex: 69 / M ADM Date: 01/16/25 Loc: HO.ED Attending Dr: Ordering Physician: Emani Cervantes NP Date of Service: 01/16/25 Procedure(s): XR knee LT 4V Accession Number(s): [id number] cc: Emani Cervantes NP; Brea Maciel MD [...] 01/16/25 1027 DD/ 2 TD/TT: 01/16/25 1021 Workforce Development Program Director: Procedure Note Abbey, Image - 01/16/[address] [address] XRay Report Signed Patient: Feliciano Santana#: M [id number] : 1955cct:[id number] Age/Sex: 69 / MADM Date: 01/16/25 Loc: HO.ED Attending Dr: Ordering Physician: Emani Cervantes NP Date of Service: 01/16/25 Procedure(s): XR knee LT 4V Accession Number(s): [id number] cc: Emani Cervantes NP; Brea Maciel MD [...] 01/16/25 1027 DD/ 2 TD/TT: 01/16/25 1021 Workforce Development Program Director: [facility] External Provider IMG XR PROCEDURES Final Result * (ABNORMAL) Protein Creatinine Ratio, Urine (09/29/2024 8:05 AM EDT) Creatinine, Urine 321.88 mg/dL [facility] Protein, Total, Random Urine 156(H) <12 mg/dL [facility] Protein/Creati nine Ratio, Ur 0.48(H) <0.2 [facility] Comment:The spot urine prote in:creatinine ratio may increase to 0.3during normal . 09/29/2024 8:05 AM EDT 09/29/2024 8:26 AM EDT us Generic External Data Provider LAB URINE ORDERAB LES Final Result [facility] [address] [place] [phone] * (ABNORMAL) Lipid Panel, Standard (08/19/2024 2:02 PM EDT) Triglycerides 137 <150 mg/dL [facility] Comment:Desirable Triglyceri de: less than 150 mg/dLBorderline High Triglyceride 150-199 mg/dLHigh Triglyceride: 200-499 mg/dLVery High Triglyceride: greater than or equal to 5OO mg/dL Cholesterol 180 <200 mg/dL [facility] Comment:Desirable Cholestero l: less than 200 mg/dLBorderline High Cholesterol: 200-239 mg/dLHigh Cholesterol: greater than 239 mg/dL LDL Cholesterol Calculated 106(H) <100 mg/dL [facility] Comment:Desirable LDL: less than 100 mg/dLNear Optimal/Above Optimal LDL: 110- 129 mg/dLBorderline High LDL: 130-159 mg/dLHigh LDL: 160-189 mg/dLVery High LDL: greater than or equal to 190 mg/dL HDL Cholesterol 47 >40 mg/dL [facility] Comment:Desirable HDL: great er than 40 mg/dL Note: This HDL assay may give artificially low results in patients with liver disease. Blood Venous blood specimen / Unknown 08/19/2024 2:02 PM EDT 08/19/2024 6:34 PM EDT us Santosh Reyes MD LAB BLOOD ORDERABL ES Final Result Performing Organization Address [facility]/ZIP Co de Phone Number [facility] [address] [place] [address] [phone] * Hepatitis C Antibody with Reflex to HCV, RNA, Quantitative, Real-Time PCR (09/24/2023 8:28 AM EDT) Hepatitis C Antibody Nonreactive Nonreactive [facility] Comment:Antibodies to HCV no t detected; does not exclude early acuteHCV infection. Blood Venous blood specimen / Unknown 09/24/2023 8:28 AM EDT 09/24/2023 2:45 PM EDT us Brea Maciel MD LAB BLOOD ORDERABLES Final Re sult Performing Organization Address [facility] Co de Phone Number [facility] [address] [place] [address] [phone] from Last 3 Months or Most Recently Relevant to Health Maintenance Insurance [facility] USP OPTIONS (HMO D-SNP) [facility] - [facility] Care Teams Director Power Relationship Specialty Start Date End Date Brea Maciel MD [address] [place] [address] PCP - General Family Medicine 09/21/23 [facility] 10/01/24
--- OUTSIDE RECORDS SUMMARY | 2025-04-01 12:09 | XMS_ITS | Encounter Summary ---
Author Organization [employer] Address [address] [facility] [address]t [place] [address] Care Team Providers Care Animal Shelter Supervisor Name Role Phone Brea Maciel MD Primary Care Provider [phone] Reason for Visit * Reason Onset Date Comments medication 01/10/2024 Encounter Details Date Type Department Care Team ([facility] st Contact Info) Description 01/10/[address] [facility] [address] [place] [address] Enrique Soria, DMD [address] [place] [address] medication Social History Tobacco Use Types Packs/Day [...] Meredith Sánchez - 01/10/2024 10:17 AM EDT [facility] ADDISON Feliciano Coronado is a 68 y.o. year old male.CALLED TODAY SAYING Stacy DIGINOSE HIM WITH CANCER .YESTERDAY AND HIS IN A LOT OF PAIN.CAN YOU SEND HIM SOMETHING FOR PAIN SHARIF Kumar . documented in this encounter Plan of Treatment Not on file documented as of this encounter Visit Diagnoses Not on filedocumented in this encounter Care Teams Animal Shelter Supervisor Relationship Specialty Start Date End Date Brea Maciel MD [address] [place] [phone] PCP - General Family Medicine 09/21/23 [facility] 10/01/24 documented as of this encounter
--- OUTSIDE RECORDS SUMMARY | 2025-04-01 12:09 | XMS_ITS | Encounter Summary ---
Author Organization [facility] Address [address] [place] [address] Care Team Providers Care Animal Cruelty Investigator Name Role Phone Laura Hogue APRN Primary Care Provider Apple Villatoro DO Unavailable [phone] Encounter Details Date Type Department Care Team (Late st Contact Info) Description 03/08/2023 Scanned Document [address] [place] [phone] Provider, Generic Social History Tobacco Use Types [...] filedocumented in this encounter Care Teams Animal Cruelty Investigator Relationship Specialty Start Date End Date Laura Hogue APRN [address] [place] [phone] PCP - General Family Medicine 09/04/19 Apple Villatoro DO [address] [place] [address] Uke Driver Cardiovascular Disease 04/12/23 documented as of this encounter
--- OUTSIDE RECORDS SUMMARY | 2025-04-01 12:09 | XMS_ITS | Encounter Summary ---
Author Organization [employer] Address [address] [facility] [address] [place] [address] Care Team Providers Care Radio Station Manager Name Role Phone Brea Maciel MD Primary Care Provider [phone] Encounter Details Date Type Department Care Team ([facility] st Contact Info) Description 02/15/2024 Telephone [facility] [address] [place] [address] Brea Maciel MD [address] [place], [place] [phone] Social History Tobacco Use Types Packs/Day Years [...] documented as of this encounter Care Teams Radio Station Manager Relationship Specialty Start Date End Date Brea Maciel MD [address] [place] [address] PCP - General Family Medicine 09/21/23 [facility] 10/01/24 documented as of this encounter
--- OUTSIDE RECORDS SUMMARY | 2025-04-01 12:09 | XMS_ITS | Encounter Summary ---
Author Organization [employer] Address [address] [facility] [address] [place] [address] Care Team Providers Care Cnc Lathe Machine Operator Name Role Phone Brea Maciel MD Primary Care Provider [phone] Encounter Details Date Type Department Care Team ([facility] Contact Info) Description 07/22/2024 Orders Only [facility] [address] [place] [address] Provider, MD Hoa Social History Tobacco Use [...] documented as of this encounter Care Teams Cnc Lathe Machine Operator Relationship Specialty Start Date End Date Brea Maciel MD [address] [place] [phone] PCP - General Family Medicine 09/21/23 [facility] 10/01/24 documented as of this encounter
--- OUTSIDE RECORDS SUMMARY | 2025-04-01 12:09 | XMS_ITS | Clinical Summary ---
Author Organization [facility] Address [address] [facility] [address] [place] [phone] Phone Care Team Providers Care Research And Development Chemist Name Role Phone Unavailable Primary Care Provider [...] REPLACEMENT MEDICARE REPLACEMENT MEDICARE REPLACEMENT ALEXSANDER CURRY [id number] Additional Source Comments The information contained in this document represents components of the legal health record. It is not the complete legal health record.[facility]
--- OUTSIDE RECORDS SUMMARY | 2025-04-01 12:09 | XMS_ITS | Clinical Summary ---
Author Organization [facility] Address [address] [place] [address] Care Team Providers Care Lamp Inspector Name Role Phone Pcp, Chester Akbar MD Primary Care Provider [phone] Allergies Active Allergy Reactions Criticality Noted Date [...] Recent Progress Patient-Stated? Author Carry glucose tablets [facility] Kimberlyn Coyle, RN Take Novolog 5-10 minutes before each meal [facility] Kimberlyn Coyle, RN Schedule eye exam [facility] Kimberlyn Coyle, RN Check BG TID before breakfast, lunch and dinner and keep log [facility] Kimberlyn Coyle, RN Care Teams Lamp Inspector Relationship Specialty Start Date End Date Pcp, Chester Akbar MD [address] [place] [address] PCP - General Karate Instructor 08/17/21
--- OUTSIDE RECORDS SUMMARY | 2025-04-01 12:09 | XMS_ITS | Encounter Summary ---
Author Organization [employer] Address [address] [facility] 7t [place] [address] Care Team Providers Care Certified Detention Deputy Name Role Phone Brea Maciel MD Primary Care Provider [phone] Reason for Visit * Reason Comments Med Refill Encounter Details Date Type Department Care Team ([facility] Contact Info) Description 05/01/2024 Refill [facility] & PEDS [address] [place], [place] [phone] Manjinder Tucker MD [address] [place] [address] Psoriasis Social History Tobacco Use Types Packs/Day [...] as of this encounter Care Teams Certified Detention Deputy Relationship Specialty Start Date End Date Brea Maciel MD [address] [place] [id number] PCP - General Family Medicine 09/21/23 [facility] 10/01/24 documented as of this encounter
--- OUTSIDE RECORDS SUMMARY | 2025-04-01 12:09 | XMS_ITS | Encounter Summary ---
Author Organization [facility] Address [address] [place] [address] Care Team Providers Care Plug And Mold Finisher Name Role Phone Laura Hogue APRN Primary Care Provider [phone] Apple Villatoro DO Unavailable [phone] Encounter Details Date Type Department Care Team (Late st Contact Info) Description 08/31/2022 Scanned Document [facility] [place] [address] [place] [address] [phone] Laura Hogue APRN [address] [place], [place] [id number] Social History Tobacco Use Types Packs/Day Years [...] documented as of this encounter Care Teams Plug And Mold Finisher Relationship Specialty Start Date End Date Laura Hogue APRN [address] [place] [address] PCP - General Family Medicine 09/04/19 Apple Villatoro DO [address] [place] [address] Project Asst Cardiovascular Disease 04/12/23 documented as of this encounter
--- OUTSIDE RECORDS SUMMARY | 2025-04-01 12:09 | XMS_ITS | Encounter Summary ---
Author Organization [employer] Address [address] [facility] 7t [place] [address] Care Team Providers Care Salesperson Art Objects Name Role Phone Brea Maciel MD Primary Care Provider [phone] Reason for Visit * Reason Onset Date Comments FYI 08/06/2024 Encounter Details Date Type Department Care Team ([facility] Contact Info) Description 08/06/2024 Telephone [facility] [address] [place] [address] Brea Maciel MD [address] [place] [phone] FYI Social History Tobacco Use Types Packs/Day [...] 4:45 PM EST Tc from [facility]) calling in stating that they are discharging pt from speech therapy today. (08/06/2024) documented in this encounter Plan of Treatment Not on file documented as of this encounter Visit Diagnoses Not on filedocumented in this encounter Additional Health Concerns Assessment Noted Time PHQ-9 Depression Total Score: 0 07/09/19 25 8:57 AM EST documented as of this encounter Care Teams Salesperson Art Objects Relationship Specialty Start Date End Date Brea Maciel MD [address] [place] [address] PCP - General Family Medicine 09/21/23 [facility] 10/01/24 documented as of this encounter
--- OUTSIDE RECORDS SUMMARY | 2025-04-01 12:09 | XMS_ITS | Encounter Summary ---
Author Organization [employer] [facility] Address [address] [facility] 7t [place] [address] Care Team Providers Care Director Information Name Role Phone Brea Maciel MD Primary Care Provider [phone] Encounter Details Date Type Department Care Team (Late st Contact Info) Description 07/24/2023 Orders Only [facility] [address] [place] [address] Shawn Mendez MD [address] [place] [address] Social History Tobacco Use Types Packs/Day Years [...] filedocumented in this encounter Care Teams Director Information Relationship Specialty Start Date End Date Brea Maciel MD [address] [place] [address] PCP - General Family Medicine 09/21/23 [facility] 10/01/24 documented as of this encounter
--- OUTSIDE RECORDS SUMMARY | 2025-04-01 12:09 | XMS_ITS | Encounter Summary ---
Author Organization [employer] Address [address] [facility] 7t [place] [address] Care Team Providers Care Hand Frame Surgical Elastic Knitter Name Role Phone Brea Maciel MD Primary Care Provider [phone] Reason for Visit * Reason Onset Date Comments Durable Medical Equipment 04/11/2024 Encounter Details Date Type Department Care Team ([facility] st Contact Info) Description 04/11/2024 Telephone [facility] [address] [place] [address] Brea Maciel MD [address] [place] [address] Durable Medical Equipment Social History Tobacco Use [...] - 04/11/2024 3:09 PM EST Tc from [facility]) requesting DME supply for pt Shower Chair, Race toilet seat with hand rest, walker with seat . Callback number [phone] documented in this encounter Plan of Treatment Not on file documented as of this encounter Visit Diagnoses Not on filedocumented in this encounter Additional Health Concerns Assessment Noted Time PHQ-9 Depression Total Score: 10 024 11:21 AM EDT documented as of this encounter Care Teams Hand Frame Surgical Elastic Knitter Relationship Specialty Start Date End Date Brea Maciel MD [address] [place] [address] PCP - General Family Medicine 09/21/23 [facility] 10/01/24 documented as of this encounter
--- OUTSIDE RECORDS SUMMARY | 2025-04-01 12:09 | XMS_ITS | Encounter Summary ---
Author Organization [facility] Address [address] [place] [address] Care Team Providers Care Lead Embedded Software Engineer Name Role Phone LennieLoriefrances ESTRADA Primary Care Provider [phone] Apple Villatoro DO Unavailable [phone] Encounter Details Date Type Department Care Team (Late st Contact Info) Description 08/31/2022 Scanned Document [facility] [address] [facility] [address] [place] [phone] Shabnam Merrill MD [address] [place] [address] Social History Tobacco Use Types Packs/Day Years [...] as of this encounter Care Teams Lead Embedded Software Engineer Relationship Specialty Start Date End Date Laura Hogue APRN [address] [place] [address] PCP - General Family Medicine 09/04/19 Apple Villatoro DO [address] [place] [address] Content Creation Manager Cardiovascular Disease 04/12/23 documented as of this encounter
--- OUTSIDE RECORDS SUMMARY | 2025-04-01 12:09 | XMS_ITS | Encounter Summary ---
Author Organization [employer] Address [address] [facility] 7t [place] [address] Care Team Providers Care Stone Operator Name Role Phone Brea Maciel MD Primary Care Provider [phone] Reason for Visit * Reason Comments Med Refill Encounter Details Date Type Department Care Team ([facility] Contact Info) Description 07/27/2024 Refill [facility] MED & PEDS [address] [place], [place] [phone] Manjinder Tucker MD [address] [place] [address] Psoriasis Social History Tobacco Use Types Packs/Day [...] documented as of this encounter Care Teams Stone Operator Relationship Specialty Start Date End Date Brea Maciel MD [address] [place] [address] PCP - General Family Medicine 09/21/23 [facility] 10/01/24 documented as of this encounter
--- OUTSIDE RECORDS SUMMARY | 2025-04-01 12:09 | XMS_ITS | Encounter Summary ---
Author Organization [employer] Address [address] [facility] 7t [place] [address] Care Team Providers Care Pack Mule Worker Name Role Phone Brea Maciel MD Primary Care Provider [phone] Encounter Details Date Type Department Care Team ([facility] Contact Info) Description 05/07/2024 Orders Only [facility] [address] [place] [address] Provider, MD Hoa Social History Tobacco Use [...] documented as of this encounter Care Teams Pack Mule Worker Relationship Specialty Start Date End Date Brea Maciel MD [address] [place] [address] PCP - General Family Medicine 09/21/23 [facility] 10/01/24 documented as of this encounter
== END 2025-04-01 10:26 | disposition home or self-care (01) ==
LOC: HO.HKA 10:01
PROVIDERS: PCP Family Medicine; Visit Provider Internal Medicine Nephrology
DX: I10 Essential (primary) hypertension (principal); N18.31 Chronic kidney disease, stage 3a; E11.21 Type 2 diabetes mellitus with diabetic nephropathy
CPT/HCPCS: 99214

== ENCOUNTER 2025-04-01 10:01 | Outpatient (REF) | payer OTHER, SELFPAY ==
--- OUTSIDE RECORDS SUMMARY | 2025-04-01 20:03 | XMS_ITS | Encounter Summary ---
Author Organization [employer] [facility] Address [address] [facility] 7t [place] [address] Care Team Providers Care Exchange Consultant Name Role Phone Brea Maciel MD Primary Care Provider Encounter Details Date Type Department Care Team ([facility] st Contact Info) Description 04/01/2025 Orders Only GENERIC EXTERNAL DATA DEPARTMENT Provider, [...] Procedure Name Priority Date/Time Associated Diagnosis Comments SED RATE BY MODIFIED WESTERGREN Routine 04/01/2025 4:12 PM EDT CREATINE KINASE, TOTAL Routine 04/01/2025 4:12 PM EDT documented in this encounter Results * (ABNORMAL) Sed Rate by Modified Westergren (04/01/2025 4:12 PM EDT) Erythrocyte Sedimentation Rate 30(H) 0 - 15 MM/HR [facility] [facility] Comment:Patients with polycy themia and many hemoglobin abnormalitiesmay have depressed sed rates whereas patients with anemiamay have elevated sed rates. 04/01/2025 4:12 PM EDT 04/01/2025 4:12 PM EDT us Generic External Data Provider LAB BLOOD ORDERAB LES Final Result [facility] [address] [place] [address] [phone] * Creatine Kinase, Total (04/01/2025 4:12 PM EDT) Creatine Kinase Total 72 38 - 174 U/L [facility] 04/01/2025 4:12 PM EDT 04/01/2025 4:12 PM EDT us Generic External Data Provider LAB BLOOD ORDERAB LES Final Result [facility] [address] [place] [address] [phone] documented in this encounter Visit Diagnoses Not on filedocumented in this encounter Additional Health Concerns Assessment Noted Time PHQ-9 Depression Total Score: 0 07/09/19 25 8:57 AM EST documented as of this encounter Care Teams Exchange Consultant Relationship Specialty Start Date End Date Brea Maciel MD [address] [place] [address] PCP - General Family Medicine 09/21/23 [facility] 10/01/24 documented as of this encounter
== END 2025-04-01 10:02 | disposition home or self-care (01) ==
LOC: HO.LAB 10:01
PROVIDERS: PCP Family Medicine; Visit Provider Psychiatry & Neurology Neurology
DX: I12.9 Hypertensive chronic kidney disease with stage 1 through stage 4 chronic kidney disease, or unspecified chronic kidney disease (principal); N18.31 Chronic kidney disease, stage 3a; E11.21 Type 2 diabetes mellitus with diabetic nephropathy; E11.22 Type 2 diabetes mellitus with diabetic chronic kidney disease; G43.009 Migraine without aura, not intractable, without status migrainosus
CPT/HCPCS: 36415; 82550; 85652; 99202; 99212

== ENCOUNTER 2025-04-01 14:59 | Outpatient (AMB) | payer OTHER, SELFPAY ==
--- NOTE | 2025-04-01 15:30 | A.OFFVIS_ITS ---
Intake Visit Reasons: dizziness on standing Allergies No Known Allergies Allergy (Verified 04/01/25 10:10) HPI Comments Details: 70 years old man with headaches. He said that he was having headaches for about 4-5 years. Frequency was about 2 to 3 times a month and each time it was lasting for about a day. Pain was in bifrontal area. He was using ndgi-[id number] Tylenol for pain. There was no other associated symptom and no obvious trigger. He denied that any family members suffered from headaches. He was [place]i speaking and into was performed with the help of an stone finisher. [facility] Medical History (Updated 04/01/25 @ 15:43 by Ricardo Alcazar MD) Hyperlipidemia Anxiety Depression History of prostate cancer Hypothyroidism Psoriasis Type 2 diabetes mellitus without 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, with custodial current use of insulin pump Chronic kidney disease Diabetes Hypertension Surgical History History of arthroplasty of knee Hx of radical prostatectomy Social History Household Members: None Housing: Apartment Do you presently have visiting nurse or other home services: No Alcohol intake: former Patient Tobacco Use Status: Former Tobacco user Second Hand Smoke Exposure: No Substance Use Type: Marijuana service: No Review of Systems Narrative Constitutional:? He complaints of weight loss and fatigue. Also complain of difficulty sleeping. HEENT:? Complaints of dryness of eyes. Cardiovascular:?No chest pain, palpitations, orthopnea, PND, or leg swelling. Respiratory:?No cough, shortness of breath, wheezing, or hemoptysis. Gastrointestinal:?No nausea, vomiting, abdominal pain, diarrhea, or constipation. Genitourinary:?No dysuria, frequency, incontinence, or hematuria. Musculoskeletal:?No joint pain, stiffness, weakness, or muscle aches. Neurological:? Complaints of difficulty walking, weakness, cold intolerance, headaches, and dizziness. Psychiatric:?No anxiety, depression, mood swings, sleep disturbance, or hallucinations. Endocrine:?No heat/cold intolerance, polydipsia, polyuria, or hair/skin changes. Hematologic/Lymphatic:?No easy bruising, bleeding, or lymphadenopathy. Integumentary (Skin):?No rash, lesions, itching, or color changes. Allergic/Immunologic:?No seasonal allergies, hives, or recurrent infections. Physical Exam Neuro Other: Mental Status: He is alert and awake with normal spontaneity of speech fluency comprehension and affect Cranial Nerves: CN II: Visual jimenez full to confrontation, visual acuity intact. CN III, IV, : Pupils equal, round, reactive to light and accommodation. Extraocular movements are normal. CN V: Facial sensation is normal. CN VII: Facial movements symmetrical. CN VIII: Hearing intact to bedside conversation is normal. CN IX, X: Palate elevates symmetrically. CN XI: Shoulder shrug and head turn symmetrical. CN XII: Tongue midline without atrophy or fasciculations. Motor: Deep tendon reflexes are trace to absent. Gait is normal. Extrapyramidal: Full facial expressions and blinking. No rigidity. Movements are appropriate with no tremor or abnormality. Speech: Normal; no dysarthria or tremor. Results Reviewed Results Reviewed: Laboratory Tests 01/16/25 09:34 ESR 21 H Assessment & Plan Assessment & Plan (1) Migraine without aura: Comment: CT brain WO at [facility] in Jan 2025: Mild diff atrophy MRI brain WO at [facility] in Feb 2025: Mild diff atrophy and minimal MVD Code(s): G43.009 - Migraine without aura, not intractable, without status migrainosus Category: Medical Qualifiers: Status migrainosus presence: without status migrainosus Intractability: not intractable Qualified Code(s): G43.009 - Migraine without aura, not intractable, without status migrainosus Plan Impression: Probably migraine without aura affecting him for many years, sporadic, and unresponsive to thln-oeo-mkpabkg medicines. Recommendations: 1. Sumatriptan 50 mg 1 a day as needed 2. Sed rate and CPK level Orders: Orders Creatine Kinase Total Today G43.009 - Migraine without aura, not intractable, without status migrainosus Erythrocyte Sedimentation Rate Today G43.009 - Migraine without aura, not intractable, without status migrainosus Medications: New sumatriptan succinate 50 mg orally qd prn for headache PRN; do not exceed 4 doses per 24 hrs 10 tabs 5RF migraine headache Coding Level of Care Code New Pt Level 3 (40728) Diagnoses Migraine without aura and without status migrainosus, not intractable G43.009 Status migrainosus presence: without status migrainosus Intractability: not intractable
== END 2025-04-01 15:49 | disposition home or self-care (01) ==
LOC: HO.HSM 15:00
PROVIDERS: PCP Family Medicine; Visit Provider Psychiatry & Neurology Neurology
DX: G43.009 Migraine without aura, not intractable, without status migrainosus (principal)
CPT/HCPCS: 99203

== ENCOUNTER 2025-04-27 10:28 | Day surgery (SDC) | payer OTHER, SELFPAY ==
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
--- OUTSIDE RECORDS SUMMARY | 2025-04-13 17:14 | XMS_ITS | Encounter Summary ---
Author Organization [employer] Address [address] [facility] [address] [place] [address] Care Team Providers Care Collection Systems Foreman Name Role Phone Brea Maciel MD Primary Care Provider [phone] Encounter Details Date Type Department Care Team ([facility] Contact Info) Description 07/22/2024 Orders Only [facility] [address] [place] [address] Provider, MD Hoa Social History Tobacco Use [...] Upcoming Encounters Date Type Department Care Team ([facility] st Contact Info) Description 05/14/2025 3:15 PM EST Office Visit [facility] MED & PEDS [address] [place] [address] Brea Maciel MD [address] [place] [address] documented as of this encounter Procedures Procedure [...] documented as of this encounter Care Teams Collection Systems Foreman Relationship Specialty Start Date End Date Brea Maciel MD [address] [place] [address] PCP - General Family Medicine 09/21/23 [facility] 10/01/24 documented as of this encounter
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
--- OUTSIDE RECORDS SUMMARY | 2025-04-13 17:14 | XMS_ITS | Clinical Summary ---
Author Organization [facility] Address [address] [place] [address] Care Team Providers Care Siding Stapler Name Role Phone LennieLoriefrances ESTRADA Primary Care Provider Apple Villatoro DO Unavailable [phone] Allergies Active Allergy Reactions Criticality Noted [...] Admin Instructions . Active Continuous Blood Gluc Advanced Practice Rn (FreeStyle Marlen 2 [place]) Device 1 PER YEAR Active Continuous Blood Gluc Sensor (FreeStyle Marlen 2 Sensor) [facility] See Admin Instructions . [...] 08/18/2021, Additional history exists Influenza Vaccine 01/02/2025 02/24/2018 Colonoscopy 04/06/2025 04/06/2020, 07/06 (Previously Completed), [...] Comprehensive Metabolic Panel (02/28/2023 1:22 PM EDT) [facility] Glucose 409(HH) 65 - 99 mg/dL 02/28/2023 2:17 PM EDT [facility] Comment:Fasting: <100 mg/dL, Non-Fasting: <200 mg/dL (ADA 2005) Blood Urea Nitrogen (BUN) 42(H) 8 - 21 mg/dL 02/28/2023 2:17 PM [facility] Creatinine 1.5(H) 0.5 - 1.3 mg/dL 02/28/2023 2:17 PM [facility] eGFR 51(L) >59 02/28/2023 2:17 PM [facility] Comment:CKD-EPI (2020) in mL /min/1.73 sq meters. Sodium 133(L) 136 - 145 mmol/L 02/28/2023 2:17 PM [facility] Potassium 3.7 3.4 - 5.3 mmol/L 02/28/2023 2:17 PM [facility] Chloride 95(L) 98 - 107 mmol/L 02/28/2023 2:17 PM [facility] CO2 25 22 - 33 mmol/L 02/28/2023 2:17 PM [facility] Calcium 9.7 8.7 - 10.5 mg/dL 02/28/2023 2:17 PM [facility] Alkaline Phosphatase 105 45 - 128 U/L 02/28/2023 2:17 PM [facility] Aspartate Aminotrans (AST) 40 10 - 55 U/L 02/28/2023 2:17 PM [facility] Alanine Aminotrans (ALT) 59(H) 10 - 55 U/L 02/28/2023 2:17 PM [facility] Bilirubin, Total 0.5 0.2 - 1.0 mg/dL 02/28/2023 2:17 PM [facility] Protein, Total 7.7 6.3 - 8.3 g/dL 02/28/2023 2:17 PM [facility] Albumin 4.2 3.4 - 4.8 g/dL 02/28/2023 2:17 PM [facility] BUN/Creatinine Ratio 28(H) 10.0 - 25.0 Ratio 02/28/2023 2:17 PM [facility] Globulin 3.5 1.5 - 3.9 g/dL 02/28/2023 2:17 PM [facility] Albumin/Globulin Ratio 1.2 1.0 - 3.0 Ratio 02/28/2023 2:17 PM [facility] Anion Gap 13 7 - 17 02/28/2023 2:17 PM EDT [facility] Blood specimen (specimen) (Plasma/Serum) 02/28/2023 1:22 PM EDT 02/28/2023 1:48 PM EDT Fela [facility] LAB BLOOD ORDERABLES Final Re sult HOSPITAL LAB See Below [facility] [address] [place] [address] * POCT Microalbumin (02/12/2023 10:37 AM EDT) Microalbumin, POC 10.0 MG/L Creatinine Urine, POC 100.0 MG/DL Microalbumin/Cr eat Ratio, POC <30 MG/G Lot Number [id number] Coffee Roaster Pass Pass Urine 02/12/2023 10:3 7 AM [...] cm in short axis (series 2 image 26/) compared to 2016. The aorta is unremarkable. [...] 1.1cm in short axis (series 2 image /) compared to 2016. The aorta isunremarkable. PELVIC [...] EDT 03/06/2018 7:56 AM EDT Radha Carter SOAKING ROOM OPERATOR LAB BLOOD ORDERABLES Final Res ult HOSPITAL [...] Decision Thoroughly Discussed with: Patient Care Teams Siding Stapler Relationship Specialty Start Date End Date Laura Hogue APRN [address] [place] [address] PCP - General Family Medicine 09/04/19 Apple Villatoro DO [address] [place] [address] Metal Trimmer Cardiovascular Disease 04/12/23
--- OUTSIDE RECORDS SUMMARY | 2025-04-13 17:14 | XMS_ITS | Encounter Summary ---
Author Organization [employer] Address [address] [facility] 7t [place] [address] Care Team Providers Care Shuttle Route Vehicle Operator Name Role Phone Brea Maciel MD Primary Care Provider [phone] Reason for Visit * Reason Onset Date Comments Reschedule 06/02/2024 Encounter Details Date Type Department Care Team ([facility] Contact Info) Description 06/02/2024 Telephone [facility] MEDICINE [address] [place] [address] Brea Maceil MD [address] [place] [address] Reschedule Social History Tobacco Use Types Packs/Day [...] 3:15 PM EST Office Visit [facility] & P[facility]S [address] [place] [address] Brea Maciel MD [address] [place] [address] documented as of this encounter Visit Diagnoses Not on filedocumented in this encounter Additional Health Concerns Assessment Noted Time PHQ-9 Depression Total Score: 10 024 11:21 AM EDT documented as of this encounter Care Teams Shuttle Route Vehicle Operator Relationship Specialty Start Date End Date Brea Maciel MD [address] [place] [address] PCP - General Family Medicine 09/21/23 [facility] 10/01/24 documented as of this encounter
--- OUTSIDE RECORDS SUMMARY | 2025-04-13 17:14 | XMS_ITS | Clinical Summary ---
Author Organization [facility] Address [address] [place] [address] Care Team Providers Care Sap Basis Administrator Name Role Phone Charis Liz Primary Care Provider [phone] William Kaplan MD Unavailable Allergies Active Allergy [...] Information: Site ID: [id number] Name: [facility] Address: [address] [place] [phone] Director: Roly Huerta M.D.,PhD us Robert Martinez MD [facility] LAB ORDERABLES Lin amalia Result [facility] [address] [place] [phone], [place] from Last 3 Months or Most Recently Relevant to Health Maintenance Insurance [address] [place] [address] MEDICAID [id number] PART A & B Care Teams Sap Basis Administrator Relationship Specialty Start Date End Date Charis Liz PA [address] [place] [address] PCP - General Internal Medicine 12/11/18 William Kaplan MD [address] [place] [address] PCP - Insurance Payer PCP 02/02/23
--- OUTSIDE RECORDS SUMMARY | 2025-04-13 17:14 | XMS_ITS | Encounter Summary ---
Author Organization [employer] Address [address] [facility] 7t [place] [address] Care Team Providers Care Cycling Instructor Name Role Phone Brea Maciel MD Primary Care Provider [phone] Reason for Visit * Reason Comments Med Refill Encounter Details Date Type Department Care Team ([facility] Contact Info) Description 10/16/2024 Refill [facility] MEDICINE [address] [place] [address] Brea Maciel MD [address] [place] [address] Social History Tobacco Use Types Packs/Day Years [...] 05/14/2025 3:15 PM EST Office Visit [facility] [address] [place] [address] Brea Maciel MD [address] [place] [address] documented as of this encounter Visit Diagnoses Not on filedocumented in this encounter Additional Health Concerns Assessment Noted Time PHQ-9 Depression Total Score: 0 07/09/19 25 8:57 AM EST documented as of this encounter Care Teams Cycling Instructor Relationship Specialty Start Date End Date Brea Maciel MD [address] [place] [address] PCP - General Family Medicine 09/21/23 [facility] 10/01/24 documented as of this encounter
--- OUTSIDE RECORDS SUMMARY | 2025-04-13 17:14 | XMS_ITS ---
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 Dysphagia 02/06/2024 Anxiety 12/24/2023 Depression 12/24/2023 Diabetes mellitus ([facility] V24, [facility] V28) Hyperlipidemia 12/24/2023 Hypertension 12/24/2023 Hypothyroidism 12/24/2023 Psoriasis 12/24/2023 Continuous leakage of urine 10/05/2023 Polyp of colon 10/05/2023 Renal failure 09/27/2023 Transaminitis 09/27/2023 Chronic midline low back pain without sciatica 0 08/15/2023 Hepatic steatosis 07/24/2023 Lightheadedness 03/01/2023 Stage 3a chronic kidney disease ([facility] V24, CM /[facility] V28) 02/12/2023 Cough 08/26/2019 Suspected COVID-19 virus infection 08/26/2019 Reactive depression 08/26/2019 Lower abdominal pain 08/26/2019 Stage 1 chronic kidney disease 03/05/2018 Vasovagal syncope 03/05/2018 Mixed hyperlipidemia 05/10/2017 Hypothyroidism (acquired) 04/10/2017 Prostate cancer ([facility] V24, [facility] V28) 11/24 Overview (04/18/2024): Last [...] squamous cell carcin alexy of lower gingiva ([facility] V24, [facility] V28) Treatment Medications Current Day [...] 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
--- OUTSIDE RECORDS SUMMARY | 2025-04-13 17:14 | XMS_ITS | Encounter Summary ---
Author Organization [facility] Address [address] [place] [address] Care Team Providers Care Garbage Worker Name Role Phone Jaylene Kong MD Primary Care Provider [phone] Charis Liz PA-C Primary Care Provider [phone] Laura Hogue APRN Primary Care Provider [phone] Apple Villatoro DO Unavailable [phone] Encounter Details Date Type Department Care Team (Late st Contact Info) Description 11/25/2015 Scanned Document [address] [phone] Provider, Generic Social History Tobacco Use Types [...] documented as of this encounter Care Teams Garbage Worker Relationship Specialty Start Date End Date Jaylene Kong MD PCP - General Internal Medicine 09/28/15 04/04/17 Charis Liz PA-C PCP - General 04/05/17 09/03/19 Laura Hogue APRN [address] [place] [address] PCP - General Family Medicine 09/04/19 Apple Villatoro DO [address] [place] [address] Carton Packaging Machine Operator Cardiovascular Disease 04/12/23 documented as of this encounter
--- OUTSIDE RECORDS SUMMARY | 2025-04-13 17:14 | XMS_ITS | Clinical Summary ---
Author Organization [facility] Address [address] [place] [phone] Phone Care Team Providers Care Computer Systems Security Analyst Name Role Phone Brea Maciel MD [...] of lower gingiva ([facility] V24, [facility] V28) 02/12/2024 Cancer Staging:Pathologic:Stage AB(pT4a, pN0, cM0) - Unsigned Overview (04/18/2024): 69 y.o. 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 Dysphagia 02/06/2024 Anxiety 12/24/2023 Depression 12/24/2023 Diabetes mellitus ([facility] V24, [facility] V28) Hyperlipidemia 12/24/2023 Hypertension 12/24/2023 Hypothyroidism 12/24/2023 Psoriasis 12/24/2023 Continuous leakage of urine 10/05/2023 Polyp of colon 10/05/2023 Renal failure 09/27/2023 Transaminitis 09/27/2023 Chronic midline low back pain without sciatica 0 08/15/2023 Hepatic steatosis 07/24/2023 Lightheadedness 03/01/2023 Stage 3a chronic kidney disease ([facility] V24, CM S/[facility] V28) 02/12/2023 Cough 08/26/2019 Suspected COVID-19 virus infection 08/26/2019 Reactive depression 08/26/2019 Lower abdominal pain 08/26/2019 Stage 1 chronic kidney disease 03/05/2018 Vasovagal syncope 03/05/2018 Mixed hyperlipidemia 05/10/2017 Hypothyroidism (acquired) 04/10/2017 Prostate cancer ([facility] V24, [facility] V28) 11/24 Overview (04/18/2024): Last Assessment & Plan: Referral to Urologist for further monitoring and treatment. Erectile dysfunction following radical prostatec jonathan 11/25/2015 Obstructive sleep apnea syndrome 08/18/2015 Snoring 06/16/2015 Essential hypertension 06/16/2015 Fatigue due to sleep pattern disturbance 016 Resolved Problems Problem Noted Date Diagnosed Date Resolved Date Oral cancer ([facility] V24, [facility] V28) 04/17/2024 04/24/2024 Encounters Date Type Department Care Team Description 02/11/2025 1:30 PM EDT Office Visit [facility] Hematology Oncology [address] [place] [address] Tawana Chang MD Primary squamous cell carcinoma of lower gingiva ([facility] V24, [facility] V28) (Primary Dx) from Last 3 Months [...] History Date Comments Hypertension DX:Hypertension Diabetes mellitus ([facility] V 24, [facility] V28) DX:Diabetes mellitus ([facility]) Obstructive sleep apnea syndrome 08/18/2015 DX:Obstructive sleep apnea syndrome Arthritis DX:Arthritis Depression DX:Depression Chronic kidney disease DX:Chroni c kidney disease Prostate cancer ([facility] V24 , [facility] V28) DX:Prostate cancer ([facility]) Primary insomnia 04/16/2024 Family History Medical History [...] Description 05/20/2025 11:30 AM EST Office Visit [facility] Hematology Oncology [address] [place] [address] Tawana Chang MD [address] [place] [address] Health Maintenance Due Date Last Done Comments [...] LAB CHEMISTRY METHOD 07/19/2024 12:34 PM EST [facility] Potassium 4.1 3.5 - 5.5 mmol/L LAB CHEMISTRY METHOD 07/19/2024 12:34 PM EST [facility] Chloride 102 96 - 110 mmol/L LAB CHEMISTRY METHOD 07/19/2024 12:34 PM EST [facility] CO2 27 21 - 32 mmol/L LAB CHEMISTRY METHOD 07/19/2024 12:34 PM [facility] Anion Gap 5 3 - 11 LAB CHEMISTRY METHOD 07/19/2024 12:34 PM [facility] Glucose 180(H) 70 - 100 mg/dL LAB CHEMISTRY METHOD 07/19/2024 12:34 PM [facility] BUN 14 5 - 25 mg/dL LAB CHEMISTRY METHOD 07/19/2024 12:34 PM [facility] Creatinine 1.13 0.70 - 1.30 mg/dL LAB CHEMISTRY METHOD 07/19/2024 12:34 PM [facility] eGFR 71 >=60 mL/min/1. 73m2 LAB CHEMISTRY METHOD 07/19/2024 12:34 PM [facility] Comment:Calculation based on the Chronic Kidney Disease Epidemiology Collaboration (CKD-EPI) equation refit without adjustment for race. BUN/Creatinine Ratio 12.4 LAB CHEMISTRY METHOD 07/19/2024 12:34 PM [facility] Calcium 9.0 8.5 - 10.5 mg/dL LAB CHEMISTRY METHOD 07/19/2024 12:34 PM [facility] Blood Venous blood specimen / Unknown Venipuncture / Unknown 07/19/2024 12:00 PM EST 07/19/2024 12:09 PM EST us Enrique Greenwood MD LAB BLOOD ORDERABLES Final Result [facility] [address] [place] [address], from Last 3 Months or Most Recently Relevant to Health Maintenance Insurance [address] [place] [id number] [facility] OPTIONS Member Subscriber Plan / Payer (Ef fective 2024-Present) Name:Feliciano Santana Relation to Subscriber:Self Name:Feliciano Santana Payer ID:[id number] Group ID:Not on file Type:Not on file Address: [place] [address] [address] [phone] Care Teams Computer Systems Security Analyst Relationship Specialty Start Date End Date Brea Maciel MD [address] [place] [phone] PCP - General 10/08/23
--- OUTSIDE RECORDS SUMMARY | 2025-04-13 17:14 | XMS_ITS | Encounter Summary ---
Author Organization [employer] Address [address] [facility] 7t [place] [address] Care Team Providers Care Knapsack Sprayer Name Role Phone Brea Maciel MD Primary Care Provider [phone] Reason for Visit * Reason Onset Date Comments FYI 08/06/2024 Encounter Details Date Type Department Care Team ([facility] Contact Info) Description 08/06/2024 Telephone [facility] MEDICINE [address] [place] [address] Brea Maciel MD [address] [place] [phone] FYI Social History Tobacco Use Types Packs/Day [...] 4:45 PM EST Tc from [facility] (Rehab Dumpster Driver) calling in stating that they are discharging pt from speech therapy today. (08/06/2024) documented in this encounter Plan of Treatment Upcoming Encounters Date Type Department Care Team (Late st Contact Info) Description 05/14/2025 3:15 PM EST Office Visit [facility] MED & PEDS [address] [place] [address] Brea Maciel MD [address] [place] [address] documented as of this encounter Visit Diagnoses Not on filedocumented in this encounter Additional Health Concerns Assessment Noted Time PHQ-9 Depression Total Score: 0 07/09/19 8:57 AM EST documented as of this encounter Care Teams Knapsack Sprayer Relationship Specialty Start Date End Date Brea Maciel MD [address] [place] [address] PCP - General Family Medicine 09/21/23 Home Care [facility] 10/01/24 documented as of this encounter
--- OUTSIDE RECORDS SUMMARY | 2025-04-13 17:14 | XMS_ITS | Encounter Summary ---
Author Organization [employer] Address [address] [facility] 7t [place] [address] Care Team Providers Care Drum Maker Name Role Phone Brea Maciel MD Primary Care Provider [phone] Reason for Visit * Reason Comments Med Refill Encounter Details Date Type Department Care Team ([facility] Contact Info) Description 07/27/2024 Refill [facility] MED & PEDS [address] [place], [place] [phone] Manjinder Tucker MD [address] [place] [address] Psoriasis Social History Tobacco Use Types Packs/Day [...] 05/14/2025 3:15 PM EST Office Visit [facility] MED & PEDS [address] [place] [address] Brea Maciel MD [address] [place] [address] documented as of this encounter Visit Diagnoses Diagnosis Psoriasis Other psoriasis documented in this encounter Additional Health Concerns Assessment Noted Time PHQ-9 Depression Total Score: 0 07/09/19 25 8:57 AM EST documented as of this encounter Care Teams Drum Maker Relationship Specialty Start Date End Date Brea Maciel MD [address] [place] [address] PCP - General Family Medicine 09/21/23 Home Care [facility] 10/01/24 documented as of this encounter
--- OUTSIDE RECORDS SUMMARY | 2025-04-13 17:14 | XMS_ITS | Encounter Summary ---
Author Organization [facility] Address [address] [place] [address] Care Team Providers Care Statistics Teacher Name Role Phone Laura Hogue APRN Primary Care Provider [phone] Apple Villatoro DO Unavailable [phone] Encounter Details Date Type Department Care Team (Late st Contact Info) Description 03/01/2020 Scanned Document [facility] Colorectal Surgery Mode [address] [place] [address] Laura Hogue APRN [address] [place], [place] [phone] Social History Tobacco Use Types Packs/Day Years [...] documented as of this encounter Care Teams Statistics Teacher Relationship Specialty Start Date End Date Laura Hogue APRN [address] [place] [address] PCP - General Family Medicine 09/04/19 Apple Villatoro DO [address] [place] [address] Retail Director Cardiovascular Disease 04/12/23 documented as of this encounter
--- OUTSIDE RECORDS SUMMARY | 2025-04-13 17:14 | XMS_ITS | Encounter Summary ---
Author Organization [employer] Address [address] [facility] 7t [place] [address] Care Team Providers Care Neck Band Operator Name Role Phone Brea Maciel MD Primary Care Provider [phone] Reason for Visit * Reason Comments Med Refill Encounter Details Date Type Department Care Team ([facility] Contact Info) Description 04/08/2025 Refill [facility] [address] [place], [place] [phone] Santosh Walker MD 505 [place] [address] Social History Tobacco Use Types Packs/Day Years [...] Description 05/14/2025 3:15 PM EST Office Visit [facility] [address] [place] [address] Brea Maciel MD 505 [place] [address] documented as of this encounter Visit Diagnoses Not on filedocumented in this encounter Additional Health Concerns Assessment Noted Time PHQ-9 Depression Total Score: 0 07/09/19 25 8:57 AM EST documented as of this encounter Care Teams Neck Band Operator Relationship Specialty Start Date End Date Brea Maciel MD [address] [place] [address] PCP - General Family Medicine 09/21/23 [facility] 10/01/24 documented as of this encounter
--- OUTSIDE RECORDS SUMMARY | 2025-04-13 17:15 | XMS_ITS | Encounter Summary ---
Author Organization Formerly [facility] Address [address] [place] [address] Care Team Providers Care Nurses' Association Counselor Name Role Phone Laura Hogue APRN Primary Care Provider Apple Villatoro DO Unavailable [phone] Encounter Details Date Type Department Care Team (Late st Contact Info) Description 08/31/2022 Scanned Document [facility] [place] [address] [place] [address] [phone] Laura Hogue APRN [address] [place], [place] [phone] Social History Tobacco Use Types Packs/Day Years [...] documented as of this encounter Care Teams Nurses' Association Counselor Relationship Specialty Start Date End Date Laura Hogue APRN [address] [place] [address] PCP - General Family Medicine 09/04/19 Apple Villatoro DO [address] [place] [address] [employer] Cardiovascular Disease 04/12/23 documented as of this encounter
--- OUTSIDE RECORDS SUMMARY | 2025-04-13 17:15 | XMS_ITS | Clinical Summary ---
Author Organization [facility] Address [address] [facility] [address] [place] [phone] Phone Care Team Providers Care Media Services Director Name Role Phone Unavailable Primary Care Provider [...] REPLACEMENT MEDICARE REPLACEMENT MEDICARE REPLACEMENT ALEXSANDER CURRY [id number] Additional Source Comments The information contained in this document represents components of the legal health record. It is not the complete legal health record.[facility]
--- OUTSIDE RECORDS SUMMARY | 2025-04-13 17:15 | XMS_ITS | Encounter Summary ---
Author Organization [employer] Address [address] [facility] 7t [place] [address] Care Team Providers Care Hook Up Driver Name Role Phone Brea Maciel MD Primary Care Provider [phone] Reason for Visit * Reason Onset Date Comments medication 01/10/2024 Encounter Details Date Type Department Care Team ([facility] st Contact Info) Description 01/10/2024 Telephone [facility] [address] [place] [address] Enrique Soria, DMD [address] [place] [address] medication Social History Tobacco Use Types Packs/Day [...] Meredith Sánchez - 01/10/2024 10:17 AM EDT [place] DOCTOR WADE ADDISON Feliciano Coronado is a 68 y.o. year old male.CALLED TODAY SAYING Stacy DIGINOSE HIM WITH CANCER .YESTERDAY AND HIS IN A LOT OF PAIN.CAN YOU SEND HIM SOMETHING FOR PAIN SHARIF Kumar . documented in this encounter Plan of Treatment Upcoming Encounters Date Type Department Care Team (Late st Contact Info) Description 05/14/2025 3:15 PM EST Office Visit [facility] [address] [place] [address] Brea Maciel MD [address] [place] [address] documented as of this encounter Visit Diagnoses Not on filedocumented in this encounter Care Teams Hook Up Driver Relationship Specialty Start Date End Date Brea Maciel MD [address] [place] [address] PCP - General Family Medicine 09/21/23 [facility] 10/01/24 documented as of this encounter
--- OUTSIDE RECORDS SUMMARY | 2025-04-13 17:15 | XMS_ITS | Encounter Summary ---
Author Organization [facility] Address [address] [place] [address] Care Team Providers Care Halal Meat Packer Name Role Phone LennieLoriefrances ESTRADA Primary Care Provider Apple Villatoro DO Unavailable [phone] Encounter Details Date Type Department Care Team (Late st Contact Info) Description 08/31/[address] [facility] [address] [facility] [address] [place] [phone] Shabnam Merrill MD [address] [place] [address] Social History Tobacco Use Types Packs/Day Years [...] documented as of this encounter Care Teams Halal Meat Packer Relationship Specialty Start Date End Date Laura Hogue APRN [address] [place] [address] PCP - General Family Medicine 09/04/19 Apple Villatoro DO [address] [place] [address] Logistics Administrator Cardiovascular Disease 04/12/23 documented as of this encounter
--- OUTSIDE RECORDS SUMMARY | 2025-04-13 17:15 | XMS_ITS | Encounter Summary ---
Author Organization [employer] Address 75 [facility] 7t [place] [address] Care Team Providers Care Metal Furnace Operator Name Role Phone Brea Maciel MD Primary Care Provider [phone] Reason for Visit * Reason Onset Date Comments Durable Medical Equipment 04/11/2024 Encounter Details Date Type Department Care Team ([facility] st Contact Info) Description 04/11/2024 Telephone [facility] [address] [place] [address] Brea Maciel MD [address] [place] [address] Durable Medical Equipment Social History Tobacco Use [...] - 04/11/2024 3:09 PM EST Tc from [facility] ([facility]) requesting DME supply for pt Shower Chair, Race toilet seat with hand rest, walker with seat . Callback number [phone] documented in this encounter Plan of Treatment Upcoming Encounters Date Type Department Care Team (Late st Contact Info) Description 05/14/2025 3:15 PM EST Office Visit [facility] [address] [place] [address] Brea Maciel MD [address] [place] [address] documented as of this encounter Visit Diagnoses Not on filedocumented in this encounter Additional Health Concerns Assessment Noted Time PHQ-9 Depression Total Score: 10 024 11:21 AM EDT documented as of this encounter Care Teams Metal Furnace Operator Relationship Specialty Start Date End Date Brea Maciel MD [address] [place] [address] PCP - General Family Medicine 09/21/23 [facility] 10/01/24 documented as of this encounter
--- OUTSIDE RECORDS SUMMARY | 2025-04-13 17:15 | XMS_ITS | Encounter Summary ---
Author Organization [facility] Address [address] [place] [address] Care Team Providers Care Hog Sticker Name Role Phone Laura Hogue APRN Primary Care Provider [phone] Apple Villatoro DO Unavailable [phone] Encounter Details Date Type Department Care Team (Late st Contact Info) Description 03/08/2023 Scanned Document [address] [place] [phone] Provider, Generic Social History Tobacco Use Types [...] on filedocumented in this encounter Care Teams Hog Sticker Relationship Specialty Start Date End Date Laura Hogue APRN [address] [place] [address] PCP - General Family Medicine 09/04/19 Apple Villatoro DO [address] [place] [address] Headlight Assembler Cardiovascular Disease 04/12/23 documented as of this encounter
--- OUTSIDE RECORDS SUMMARY | 2025-04-13 17:15 | XMS_ITS | Encounter Summary ---
Author Organization [employer] Address [address] [facility] [address] 7t [place] [address] Care Team Providers Care Pipe Blanks Cut Off Saw Operator Name Role Phone Brea Maciel MD Primary Care Provider [phone] Encounter Details Date Type Department Care Team ([facility] st Contact Info) Description 02/15/2024 Telephone [facility] MED[facility] [address] [place] [address] Brea Maciel MD [address] [place], [place] [phone] Social History Tobacco Use Types Packs/Day Years [...] Upcoming Encounters Date Type Department Care Team ([facility] st Contact Info) Description 05/14/2025 3:15 PM EST Office Visit [facility] MED & PEDS [address] [place] [address] Brea Maciel MD [address] [place] [address] documented as of this encounter Visit Diagnoses Not on filedocumented in this encounter Additional Health Concerns Assessment Noted Time PHQ-9 Depression Total Score: 10 024 11:21 AM EDT documented as of this encounter Care Teams Pipe Blanks Cut Off Saw Operator Relationship Specialty Start Date End Date Brea Maciel MD [address] [place] [address] PCP - General Family Medicine 09/21/23 [facility] 10/01/24 documented as of this encounter
--- OUTSIDE RECORDS SUMMARY | 2025-04-13 17:15 | XMS_ITS | Encounter Summary ---
Author Organization [employer] Address [address] [facility] 7t [place] [address] Care Team Providers Care Linen Manager Name Role Phone Brea Maciel MD Primary Care Provider [phone] Encounter Details Date Type Department Care Team (Late Contact Info) Description 07/24/2023 Orders Only [facility] [address] [place] [address] Shawn Mendez MD [address] [place] [address] Social History Tobacco Use Types Packs/Day Years [...] Description 05/14/2025 3:15 PM EST Office Visit [facility] MED & PEDS [address] [place] [address] Brea Maciel MD 505 [place], [place] [phone] documented as of this encounter Visit Diagnoses Not on filedocumented in this encounter Care Teams Linen Manager Relationship Specialty Start Date End Date Brea Maciel MD [address] [place] [address] PCP - General Family Medicine 09/21/23 [facility] 10/01/24 documented as of this encounter
--- OUTSIDE RECORDS SUMMARY | 2025-04-13 17:15 | XMS_ITS | Encounter Summary ---
Author Organization [employer] Address 75 [facility] 7t [place] [address] Care Team Providers Care Entertainment Dancer Name Role Phone Brea Maciel MD Primary Care Provider [phone] Encounter Details Date Type Department Care Team ([facility] Contact Info) Description 05/07/2024 Orders Only [facility] [address] [place] [address] Provider, MD Hoa Social History Tobacco Use [...] Description 05/14/2025 3:15 PM EST Office Visit [facility] MED [facility] PEDS [address] [place] [address] Brea Maciel MD [address] [place] [address] documented as of this encounter Procedures Procedure [...] documented as of this encounter Care Teams Entertainment Dancer Relationship Specialty Start Date End Date Brea Maciel MD [address] [place] [address] PCP - General Family Medicine 09/21/23 [facility] 10/01/24 documented as of this encounter
--- OUTSIDE RECORDS SUMMARY | 2025-04-13 17:15 | XMS_ITS | Encounter Summary ---
Author Organization [employer] Address 75 [facility] 7t [place] [address] Care Team Providers Care Sweatband Decorating Machine Operator Name Role Phone Brea Maciel MD Primary Care Provider [phone] Reason for Visit * Reason Comments Med Refill Encounter Details Date Type Department Care Team ([facility] Contact Info) Description 05/01/2024 Refill [facility] [address] [place], [place] [phone] Manjinder Tucker MD [address] [place] [address] Psoriasis Social History Tobacco Use Types Packs/Day [...] 3:15 PM EST Office Visit [facility] MED & PEDS [address] [place] [address] Brea Maciel MD 505 [place] [address] documented as of this encounter Visit Diagnoses Diagnosis Psoriasis Other psoriasis documented in this encounter Additional Health Concerns Assessment Noted Time PHQ-9 Depression Total Score: 10 024 11:21 AM EDT documented as of this encounter Care Teams Sweatband Decorating Machine Operator Relationship Specialty Start Date End Date Brea Maciel MD [address] [place] [address] PCP - General Family Medicine 09/21/23 [facility] 10/01/24 documented as of this encounter
[2025-04-23 15:04] VITALS: BMI 24.9
[2025-04-24 09:05] VITALS: BMI 25.6
--- NOTE | 2025-04-24 11:01 | HO.ANESPROP2 ---
Documented by User: Traci Pantoja NP 04/24/25 11:17 HPI - Anesthesia Eval Consult details Narrative: 70 yr old male for circumcision Phone PAT assessment done by RN, pt denied trouble swallowing, he is eating & drinking normally. 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 Leyla Flanagan) 07/11/24: Completed radiation therapy (6000 cGy in 30 fractions) 11/04/24: PET DCT neck and chest 03/26/25: Repeat PET with DCT neck Exam findings: *see imaging below Face: No palpable parotid or submandibular gland masses. Right marginal mandibular nerve weakness noted. Stable compared to prior. Meticulous exam of the skin of the nose reveals no masses or lesions, no skin lesions, no erythema or edema, no areas of tenderness. Nose: External nose normal with no masses or lesions. Anterior rhinoscopy revealed normal mucosa without masses or lesions. Particular attention was paid to the external nose in light of PET findings with no masses or lesions. No skin changes. No tenderness to palpation. Oral cavity & Oropharynx: Right mandibular free flap well-healed. Resolution of the tenderness at the juncture of the flap and [place] mucosa. He reports this is his area of tenderness has completely resolved. The mucosa in this area is without inflammation or erythema. No mucosal lesion. No bleeding. No ulceration. No other masses or lesions. Palpation of the base of tongue and oral tongue reveal no other palpable masses. Neck: Post-treatment changes to the right neck. No palpable masses or cervical adenopathy. Trachea midline. JUN: does not use CPAP Anesthesia Pre-Procedure Meds Is the patient on any of the following meds?: GLP1/DPP4 PMFSH Active Problems Active Problems: All Active Problems (Updated 04/24/25 @ 08:58 by Sapphire Maya RN) Migraine without aura (Acute) Diabetic nephropathy (Acute) CKD stage 3a, GFR 45-59 ml/min (Acute) Hypomagnesemia (Acute) Severe sepsis (Acute) Urinary tract infection (Acute) Sepsis (Acute) Weak urinary stream (Acute) Phimosis (Acute) Erectile dysfunction associated with type 2 diabetes mellitus (Acute) Prostate cancer (Acute) Hypertension (Acute) Past Medical History Medical History Hx of radiation therapy Acid reflux Oral cancer Primary squamous cell carcinoma of lower gingiva Fatigue Dysphagia Dizziness Insomnia Colon polyp Transaminitis Renal failure Back pain Vasovagal syncope Thyroid disease Throat cancer Alcohol use disorder History of headache Erectile dysfunction Sleep apnea Hyperlipidemia Anxiety Depression History of prostate cancer Hypothyroidism Psoriasis Type 2 diabetes mellitus without 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, with senior care current use of insulin pump Chronic kidney disease Diabetes Hypertension Surgical History Surgical History History of percutaneous endoscopic gastrostomy (PEG) History of tracheostomy Hx of surgical procedure History of arthroplasty of knee Hx of radical prostatectomy Social History Social History Household Members: None Housing: Apartment Are you a primary interior plant caretaker to a significant other at home: No Do you presently have visiting nurse or other home services: No Alcohol intake: former Patient Tobacco Use Status: Former Tobacco user Second Hand Smoke Exposure: No Use of substances other than those prescribed or required for medical reasons: No Substance Use Type: Marijuana Are you DNR?: No Advance Directives: No Advance Directives Information Provided: No Advance Directives on File: No service: No Meds Allergies Allergy/AdvReac Type Severity Reaction Status Date / Time liraglutide Allergy Unknown Verified 04/27/25 10:56 lisinopril Allergy Cough Verified 04/27/25 10:56 NSAIDS (Non-Steroidal Allergy Unknown Verified 04/27/25 10:56 Anti-Inflamma Home Medications ?Medication ?Instructions ?Recorded ?Confirmed ?Last Taken ?Type amlodipine 10 mg tablet 10 mg PO DAILY 12/27/22 04/27/25 04/23/25 History atorvastatin 10 mg tablet 10 mg PO DAILY 12/27/22 04/27/25 04/23/25 History insulin aspart U-100 100 unit/mL 5 unit subcut TID 12/27/22 04/27/25 04/23/25 History (3 mL) subcutaneous pen (Novolog FlexPen U-100 Insulin aspart) insulin glargine 100 unit/mL 28 unit subcut BEDTIME 12/27/22 04/27/25 04/23/25 History subcutaneous solution (Lantus U-100 Insulin) levothyroxine 50 mcg tablet 50 mcg PO DAILY@0600 12/27/22 04/27/25 04/23/25 History metformin 850 mg tablet 850 mg PO BID 12/27/22 04/27/25 04/23/25 History sertraline 100 mg tablet 100 mg PO DAILY 12/27/22 04/27/25 04/23/25 History flash glucose sensor (FreeStyle #1 ea 02/13/24 04/27/25 04/23/25 History Marlen 2 Sensor kit) lancets 33 gauge (TRUEplus Lancets) #100 ea 02/13/24 04/27/25 04/23/25 History omeprazole 20 mg capsule,delayed 20 mg PO DAILY 02/13/24 04/27/25 04/23/25 History release acetaminophen 650 mg 650 mg PO Q8-10H PRN fever or pain 02/26/24 04/23/25 Unknown History tablet,extended release calcipotriene 0.005 % topical cream 1 appl topical BID 02/26/24 04/23/25 Unknown History cholecalciferol (vitamin D3) 50 50 mcg PO DAILY 02/26/24 04/27/25 04/23/25 History mcg (2,000 unit) capsule (Vitamin D3) aspirin 81 mg tablet,delayed 81 mg PO DAILY 04/23/25 04/27/25 04/23/25 History release betamethasone valerate 0.1 % 1 appl topical BID PRN Skin 04/23/25 04/27/25 04/23/25 History topical ointment Irritation chlorhexidine gluconate 0.12 % 15 ml BID 04/23/25 04/27/25 04/23/25 History mouthwash diphenhydramine HCl 12.5 mg/5 mL 12.5 mg PO DAILY PRN Itching 04/23/25 04/27/25 04/23/25 History oral liquid doxepin 10 mg capsule 10 mg PO BEDTIME 04/23/25 04/23/25 Unknown History naproxen 500 mg tablet 500 mg PO BID PRN Pain 04/23/25 04/27/25 04/23/25 History pentoxifylline 400 mg 400 mg PO TID 04/23/25 04/23/25 Unknown History tablet,extended release polyvinyl alcohol 1.4 % eye drops 1 drp ophthalmic (eye) QID 04/23/25 04/27/25 04/23/25 History secukinumab 150 mg/mL subcutaneous 150 mg subcut Q4W 04/23/25 04/23/25 Unknown History syringe (Cosentyx) sennosides 8.6 mg tablet (senna) 17.2 mg PO DAILY 04/23/25 04/23/25 Unknown History tadalafil 5 mg tablet 5 mg PO DAILY PRN Sexual Activity 04/23/25 04/27/25 04/23/25 History tirzepatide 2.5 mg/0.5 mL 2.5 mg subcut QWEEK 04/23/25 04/27/25 04/23/25 History subcutaneous pen injector (Mounjaro) vitamin E (dl, acetate) 450 mg 450 mg PO DAILY 04/23/25 04/27/25 04/23/25 History (1,000 unit) capsule Exam Height,Weight and Vital Signs: Height 5 ft 4 in Weight 67.585 kg Pertinent Lab Results Pertinent Lab Results: Laboratory Tests 01/16/25 03/30/25 09:34 07:29 WBC 6.2 RBC 5.18 Hgb 14.0 Hct 40.6 L Plt Count 177 Sodium 140 Potassium 4.2 Chloride 103 Carbon Dioxide 30 H BUN 11 Creatinine 1.13 Narrative Narrative: CT neck/PET 03/2025 INTEGRATED IMPRESSION: 1. Redemonstration postsurgical changes related to right mandibulectomy with fibular free flap reconstruction, resection of the right submandibular gland and right neck dissection. No focal intense hypermetabolic activity at the surgical site to suggest local recurrence. No CT findings of local recurrence or new mandibular erosions. 2. No suspicious hypermetabolic or morphologically abnormal cervical lymph nodes. Resolution of previously seen moderate activity within a 4 mm right retropharyngeal lymph node compared to 11/04/2024, most consistent with resolved inflammatory changes. (Black 1) 3. No findings of hypermetabolic distant metastatic disease in the chest, abdomen, pelvis or musculoskeletal system. 4. Diffuse moderate uptake within the esophagus may represent esophagitis. 5. Nodular contour of the posterior border of the liver along with slight enlargement of the left lobe the liver may represent cirrhosis which ultrasound is recommended if not?already done to establish this diagnosis. Diagnostic flexible laryngoscopy 03/31/25 ? Findings: Nasal mucosa: No masses or lesions Nasopharynx: No masses or lesions Oropharynx: No masses or lesions Supraglottis: No masses or lesions Glottis: Vocal folds smooth, white with symmetric abduction and adduction, no nodules, masses or lesions. Hypopharynx: No masses or lesions of the piriforms or pharyngeal han. ? EKG 07/2024 NSR, rate 96 ECHO 2022 ? ?Left ventricular systolic function is hyperdynamic. The quantitative EF by 2D Ramírez biplane is 70%. There is abnormal relaxation. There is discrete upper septal thickening. ?There is a resting intracavitary gradient of 8 mmHg, but no evidence of significant LVOT obstruction. ? ?The right ventricle is normal in size. Right ventricular systolic function is normal. ? ?There are no significant valvular abnormalities identified. ? ?Compared to previous study on 03/06/2018, there is no significant change. ?The LV function is now hyperdynamic. 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 Chronic kidney disease Diabetes Hypertension Family History Family history of problems with anesthesia: Unobtainable Surgical History Surgical History History of percutaneous endoscopic gastrostomy (PEG) History of tracheostomy Hx of surgical procedure History of arthroplasty of knee Hx of radical prostatectomy History of Problems with Anesthesia: Unobtainable Social History Social History Household Members: None Housing: Apartment Are you a primary interior plant caretaker to a significant other at home: No Do you presently have visiting nurse or other home services: No Alcohol intake: former Patient Tobacco Use Status: Former Tobacco user Second Hand Smoke Exposure: No Use of substances other than those prescribed or required for medical reasons: No Substance Use Type: Marijuana Are you DNR?: No Advance Directives: No Advance Directives Information Provided: No Advance Directives on File: No service: No Meds Allergies Allergy/AdvReac Type Severity Reaction Status Date / Time liraglutide Allergy Unknown Verified 04/27/25 10:56 lisinopril Allergy Cough Verified 04/27/25 10:56 NSAIDS (Non-Steroidal Allergy Unknown Verified 04/27/25 10:56 Anti-Inflamma Home Medications ?Medication ?Instructions ?Recorded ?Confirmed ?Last Taken ?Type amlodipine 10 mg tablet 10 mg PO DAILY 12/27/22 04/27/25 04/23/25 History atorvastatin 10 mg tablet 10 mg PO DAILY 12/27/22 04/27/25 04/23/25 History insulin aspart U-100 100 unit/mL 5 unit subcut TID 12/27/22 04/27/25 04/23/25 History (3 mL) subcutaneous pen (Novolog FlexPen U-100 Insulin aspart) insulin glargine 100 unit/mL 28 unit subcut BEDTIME 12/27/22 04/27/25 04/23/25 History subcutaneous solution (Lantus U-100 Insulin) levothyroxine 50 mcg tablet 50 mcg PO DAILY@0600 12/27/22 04/27/25 04/23/25 History metformin 850 mg tablet 850 mg PO BID 12/27/22 04/27/25 04/23/25 History sertraline 100 mg tablet 100 mg PO DAILY 12/27/22 04/27/25 04/23/25 History flash glucose sensor (FreeStyle #1 ea 02/13/24 04/27/25 04/23/25 History Marlen 2 Sensor kit) lancets 33 gauge (TRUEplus Lancets) #100 ea 02/13/24 04/27/25 04/23/25 History omeprazole 20 mg capsule,delayed 20 mg PO DAILY 02/13/24 04/27/25 04/23/25 History release acetaminophen 650 mg 650 mg PO Q8-10H PRN fever or pain 02/26/24 04/23/25 Unknown History tablet,extended release calcipotriene 0.005 % topical cream 1 appl topical BID 02/26/24 04/23/25 Unknown History cholecalciferol (vitamin D3) 50 50 mcg PO DAILY 02/26/24 04/27/25 04/23/25 History mcg (2,000 unit) capsule (Vitamin D3) aspirin 81 mg tablet,delayed 81 mg PO DAILY 04/23/25 04/27/25 04/23/25 History release betamethasone valerate 0.1 % 1 appl topical BID PRN Skin 04/23/25 04/27/25 04/23/25 History topical ointment Irritation chlorhexidine gluconate 0.12 % 15 ml BID 04/23/25 04/27/25 04/23/25 History mouthwash diphenhydramine HCl 12.5 mg/5 mL 12.5 mg PO DAILY PRN Itching 04/23/25 04/27/25 04/23/25 History oral liquid doxepin 10 mg capsule 10 mg PO BEDTIME 04/23/25 04/23/25 Unknown History naproxen 500 mg tablet 500 mg PO BID PRN Pain 04/23/25 04/27/25 04/23/25 History pentoxifylline 400 mg 400 mg PO TID 04/23/25 04/23/25 Unknown History tablet,extended release polyvinyl alcohol 1.4 % eye drops 1 drp ophthalmic (eye) QID 04/23/25 04/27/25 04/23/25 History secukinumab 150 mg/mL subcutaneous 150 mg subcut Q4W 04/23/25 04/23/25 Unknown History syringe (Cosentyx) sennosides 8.6 mg tablet (senna) 17.2 mg PO DAILY 04/23/25 04/23/25 Unknown History tadalafil 5 mg tablet 5 mg PO DAILY PRN Sexual Activity 04/23/25 04/27/25 04/23/25 History tirzepatide 2.5 mg/0.5 mL 2.5 mg subcut QWEEK 11/04/27/25 04/23/25 History subcutaneous pen injector (John) vitamin E (dl, acetate) 450 mg 450 mg PO DAILY 04/23/25 04/27/25 04/23/25 History (1,000 unit) capsule Exam Airway Mallampati Class: IV TM Dist: <=3cm Neck ROM: Full Loose/Missing/Broken Teeth: No Heart: RRR Lungs: Cta Assessment and Plan Assessment Anesthesia Assessment: Anesthesia Plan Discussed and Chart Reviewed Final Anesthetic Review Family History of Problems with Anesthesia: Unobtainable History of Problems with Anesthesia: Unobtainable NPO: Yes ASA Class: III Final Preanesthetic Review: No Changes in Pt Med Stat, Meds/Allgs Chart Reviewed, Consent Obtained/Reviewed and Anes Risks/Benef Reviewed Patient Risk: Intermediate Procedure Risk: Low Anesthetic Plan Anesthetic Plan: GA Disposition: Standard PACU
[2025-04-27] VITALS (8 sets, daily range): BP systolic 125–169; BP diastolic 56–87; PULSE 62–76; RESP 10–20; TEMP 36.4–36.7; O2SAT 94–98
[2025-04-27] MEDS: Lactated Ringers 1,000 ML 100 ML IVCONT (11:25)
[2025-04-27 11:29] LABS: Glucose, Whole Blood 190 mg/dL (60-115)
--- NOTE | 2025-04-27 11:44 | MHC.SHP ---
Pre-Procedural Eval Section A - 24 Hr Update-Section A only Date of Service: 04/27/25 The patient is an INPATIENT: No Changes since office visit: No Cold of Flu in the past 2 weeks, No New Medical Problems, No Changes in Medication and No Patient answered all questions The patient has been examined within 24 hours of the surgical procedure. The History & Physical has been completed within 30 days and I have reviewed it.: No Section B - Complete if H&P > 30 days Chief Complaint: Phimosis Details of Present Illness: Persistent phimosis plan circumcision Relevant Family History (Specify if Yes): No Relevant Social History: None Present Medications: see Short Stay Collaborative assessment Medical History: No relevant PMH History of Previous Operations: No relevant previous surgery Allergies: Allergies Allergy/AdvReac Type Severity Reaction Status Date / Time liraglutide Allergy Unknown Verified 04/27/25 10:56 lisinopril Allergy Cough Verified 04/27/25 10:56 NSAIDS (Non-Steroidal Allergy Unknown Verified 04/27/25 10:56 Anti-Inflamma Review of Systems Sugical H&P ROS: Negative: Constitution, Cardiovascular, Respiratory, Neurological, Psychiatric, Hem-Onc, Allergic/Immunologic, Gastrointestinal, Genitourinary, Musculoskeletal, Integumentary, Endocrine and Eyes/Ears/Nose/Throat Exam Surgical H&P Exam: Normal: HEENT, Normal: Heart, Normal: Lungs, Normal: Extremities, Normal: Abdomen, Normal: Skin and Normal: Neurological Plan Diagnosis/Plan: Unchanged I have reviewed the history and physical and performed a pertinent physical examination on my patient. No changes have occurred unless specified. Time Spent With Patient Time: Total time managing care of this patient today ____ minutes.
--- NOTE | 2025-04-27 13:06 | W.PM.OPN ---
Operative Note Operative Note Date of Service: 04/27/25 Narrative: PreOperative Diagnosis: Balanitis and phimosis setting of poorly controlled diabetes Post Operative Diagnosis: Balanitis and phimosis in setting of poorly controlled diabetes Procedure: Circumcision Surgeon: Dr Timoteo Richardson Anesthesia: General Indications for procedure: Recurring balanitis in inability to withdrawal foreskin of penile glans. Risks and benefits including bleeding, scarring, need for revision surgery been discussed. Procedure: After informed consent was verified the patient was brought to the operating room and placed in a supine position. Anesthesia was administered per protocol. The patient was prepped and draped sterile fashion. Safety pause time-out was performed. Antibiotics have been given. The penis was examined and proximal incision marked that lay just proximal to the resting position of the penile sulcus. This was followed around the circumference of the penis. A penile ring block was performed using 1% lidocaine with no epinephrine. Approximately 8 cc. The proximal incision was developed with sharp blade running circumferentially around the penis. The skin was to give a 1 cm separation between the foreskin in the remaining penile shaft skin. The foreskin was withdrawn and the penile glans exposed. A a distal incision was made approximately 5 mm proximal to the penile sulcus. At the area of the frenulum care was taken to empty the penile frenulum intact. Using clamps the dorsal skin was elevated. Using Metzenbaum scissors the avascular plane was entered and proximal and distal incision were joined. The bridging skin was elevated and clamped. It was then divided using Bovie. The sleeve of tissue was then removed circumferentially around the penis using cautery in order to minimize bleeding. The shaft was then examined in any bleeding areas were controlled. More local anesthetic was injected into the plane beneath avascular plane to help with postprocedure pain management. The skin edges after they were appropriately examined low reapposed. A 3-0 chromic suture was placed at 12:00 o'clock and 06:00 o'clock positions. Interrupted 3-0 was then placed the 09:00 o'clock and 3 o'clock position. Each quadrant was then filled with 3 sutures using 4-0 chromic. At the completion of the procedure there was adequate hemostasis. The incision was washed and dried. Antibiotic cream was applied to the incision. A Sinai wrap was applied followed by a Coban dressing. Xeroform gauze had been used to cover antibiotic ointment. Needle and instrument count correct x2. He tolerated the procedure well and was extubated in the room and transferred in stable condition to the recovery area. Pathology: Foreskin Drains: none
== END 2025-04-27 14:36 | disposition home or self-care (01) ==
PROVIDERS: PCP Family Medicine; Visit Provider Urology
PROC: (CPT 54161; principal; 2025-04-27 12:50)
DX: N47.1 Phimosis (principal); N48.1 Balanitis; R39.12 Poor urinary stream; E11.22 Type 2 diabetes mellitus with diabetic chronic kidney disease; I12.9 Hypertensive chronic kidney disease with stage 1 through stage 4 chronic kidney disease, or unspecified chronic kidney disease; N18.9 Chronic kidney disease, unspecified; E11.65 Type 2 diabetes mellitus with hyperglycemia; C61 Malignant neoplasm of prostate; N52.1 Erectile dysfunction due to diseases classified elsewhere; Z90.79 Acquired absence of other genital organ(s); E78.5 Hyperlipidemia, unspecified; Z79.4 Long term (current) use of insulin; Z96.41 Presence of insulin pump (external) (internal); Z79.899 Other long term (current) drug therapy; Z98.890 Other specified postprocedural states; Z87.891 Personal history of nicotine dependence
CPT/HCPCS: 54161; 82947; 88304; J0690; J1100; J2003; J2405; J2795; J3010

== ENCOUNTER → 2025-04-27 10:28 | Outpatient (BNV) | payer OTHER, SELFPAY | PROVIDERS: PCP Family Medicine; Visit Provider Urology | DX: N47.1 Phimosis (principal); N48.1 Balanitis | CPT/HCPCS: 54161 ==

== ENCOUNTER → 2025-05-05 10:22 | Outpatient (BNVA) | payer OTHER, SELFPAY | PROVIDERS: PCP Family Medicine; Visit Provider Urology | DX: S83.241A Other tear of medial meniscus, current injury, right knee, initial encounter (principal); X58.XXXA Exposure to other specified factors, initial encounter | CPT/HCPCS: 99202 ==

== ENCOUNTER 2025-05-05 13:44 | Outpatient (AMB) | payer OTHER, SELFPAY ==
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
[2025-05-05 13:55] VITALS: BMI 20.6
== END 2025-05-05 14:13 | disposition home or self-care (01) ==
LOC: HO.HOS 13:45
PROVIDERS: PCP Family Medicine; Visit Provider Orthopaedic Surgery
DX: S83.241A Other tear of medial meniscus, current injury, right knee, initial encounter (principal)
CPT/HCPCS: 99203; G2211

== ENCOUNTER 2025-05-23 09:27 | Outpatient (REF) | payer OTHER, SELFPAY ==
--- OUTSIDE RECORDS SUMMARY | 2025-05-20 11:30 | XMS_ITS | Encounter Summary ---
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, CMS/HCC V28) (Primary Dx) Social History Tobacco Use Types [...] Sign Reading Time Taken Comments Blood Pressure 135/78 05/20/2025 12:57 PM EST Pulse 75 05/20/2025 12:57 PM EST Temperature 36.3 C (97.3 F) 05/20/2025 12:57 PM EST Respiratory Rate - - Oxygen Saturation 100% 05/20/2025 12:57 PM EST Inhaled Oxygen Concentration - - Weight 68 kg (150 lb) 05/20/2025 12:57 PM EST Height - - Body Mass Index 25.75 06/12/2024 10:50 AM EST documented in this encounter Progress Notes * Tawana Chang MD - 05/20/2025 11:30 AM EST CHIEF COMPLAINT: Follow-up (Feeling good) IDENTIFIER:Feliciano Coronado is a 70 y.o. male. 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 Lu at [facility] 05/08/2024 - Radiation Therapy The patient saw No care water team leader to display for radiation treatment. This is the current list ofradiation treatment: VMAT: Head and neck Treatment Period Technique Fraction Dose Fractions Total Dose Course 1 05/26/2024-07/11/2024 (days elapsed: 46) Rt lower gum/Bneck 05/26/2024-07/11/2024 3 ARC VMAT 200 / 200 cGy 30 / 30 6000 / 6,000 cGy 05/26/2024 - Chemotherapy dexAMETHasone (DECADRON) injection 12 mg, 12 mg, intravenous, Once, 0 of 1 cycle alteplase (CATHFLO ACTIVASE) injection 2 mg, 2 mg, intra-catheter, As needed, 0 of 1 cycle palonosetron (ALOXI) injection 250 mcg, 250 mcg, intravenous, Once, 0 of 1 cycle CARBOplatin (PARAPLATIN) in sodium chloride 250 mL chemo IVPB, , intravenous, Once, 0 of 1 cycle Cancer Staging 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, CMS/HCC V28) Staging form: Oral Cavity, AJCC 8th Edition - Pathologic: Stage AB (pT4a, pN0, cM0) - Unsigned PAST MEDICAL HISTORY: Problem List[1] Medical History[2] SOCIAL HISTORY: Social History Tobacco Use Smoking status: Former Types: Cigarettes Smokeless tobacco: Never Substance Use Topics Alcohol use: No FAMILY HISTORY: Family History[3] Family Status Relation Name Status Mother (Not Specified) Father (Not Specified) No partnership data on file Current Medications[4] Current Allergies[5] PHYSICAL EXAM: Visit Vitals BP 135/78 (BP Location: Right arm, Patient Position: Sitting, BP Cuff Size: Adult) Pulse 75 Temp 36.3 ??C (97.3 ??F) (Temporal) Wt 68 kg (150 lb) SpO2 100% BMI 25.75 kg/m?? Smoking Status Former BSA 1.73 m?? ECOG 0 APPEARANCE: Alert and oriented in no acute distress EYES: nonicteric sclera pink conjunctiva ORAL CAVITY: No growth or ulceration NECK slightly firm neck of the right side but no focal mass etc. HEART: normal S1 and S2 LUNG: clear to auscultation bilaterally LYMPH NODES: No palpable superficial adenopathy ABDOMEN: soft, nontender and no organomegaly appreciated EXTREMITIES: No edema erythema or tenderness LABS: PET scan FINDINGS: CT of the Neck: Visualized brain:Mild global cerebral volume loss. Skull base:Unremarkable. Globes:Unremarkable. Paranasal sinuses/nasal cavity:Clear. Oral cavity/Tongue: Motion at the level of the oral cavity and oropharynx limits evaluation of these regions as well as the cranial aspect of the surgical site. Postsurgical changes related to right mandibulectomy with fibular free flap reconstruction, resection of the right submandibular gland andright neck dissection. Streak artifact related to surgical hardware and clips at the surgical sitessomewhat limits evaluation of adjacent tissues. No focal enhancing soft tissue lesion is identifiedat the surgical site to suggest local recurrence. No new mandibular erosions identified. Nasopharynx:Unremarkable, noting somewhat limited evaluation due to motion. Oropharynx:Unremarkable. Hypopharynx:Unchanged partial effacement of the bilateral piriform sinuses without findings to suggest underlying enhancing lesion. Larynx:Unremarkable Parapharyngeal/prevertebral:Similar haziness of the bilateral parapharyngeal fat related to postradiation changes. Salivary/Parotid glands:Right submandibular gland is surgically absent. Unchanged hyperdensity of the left gland consistent with postradiation changes. Thyroid gland:Unremarkable. Blood vessels:Atherosclerotic calcifications of the bilateral intracranial ICAs. type right MOTEL MAID. The arterial and venous structures of the neck and image skull base demonstrate normal enhancement for technique. Lymph nodes:No enlarged cervical lymph nodes by size criteria. No morphologically suspicious cervical lymph nodes. Surgical clips consistent with ricky dissection in right I and right II . No enlarged or contrast enhancing retropharyngeal lymph nodes. Bones:Unchanged lucency in the C6 lamina/pars interarticularis without suspicious features or associated FDG uptake. Multilevel endplate degenerative changes of the cervical spine, most prominent at C6 and C7-T1. Upper chest/lungs:Unremarkable. CT neck Scan IMPRESSION: Evaluation of the oral cavity, oropharynx and surgical site is somewhat limited on CT due to motion. Within this limitation, stable postsurgical changes from right mandibulectomy with fibular free flap reconstruction, resection of the right submandibular gland and right neck dissection. No CT findings of local recurrence or new mandibular erosions. No enlarged or morphologically suspicious cervical lymph nodes. See integrated impression. INTEGRATED IMPRESSION: 1. Redemonstration postsurgical changes related to right mandibulectomy with fibular free flap reconstruction, resection of the right submandibular gland and right neck dissection. No focal intense hypermetabolic activity at the surgical site to suggest local recurrence. No CT findings of local recurrence or new mandibular erosions. 2. No suspicious hypermetabolic or morphologically abnormal cervical lymph nodes. Resolution of previously seen moderate activity within a 4 mm right retropharyngeal lymph node compared to 11/04/2024, most consistent with resolved inflammatory changes. (Black 1) 3. No findings of hypermetabolic distant metastatic disease in the chest, abdomen, pelvis or musculoskeletal system. 4. Diffuse moderate uptake within the esophagus may represent esophagitis. 5. Nodular contour of the posterior border of the liver along with slight enlargement of the left lobe the liver may represent cirrhosis which ultrasound is recommended if not already done to establish this diagnosis. Attestation Statement: I personally reviewed the study and agree with the dictated report. Electronically signed by: Lara Hoskins M.D. Signed date and time: 03/27/2025 1:46 PM Narrative EXAMINATION: 18-FDG PET/CT with Diagnostic CT of the Neck DATE for PET/CT scan and Diagnostic CT of the Neck: 03/27/2025 Age/Gender: 70 years, Male Weight (lbs)/Height (in): 156, 141 INDICATION AND HISTORY: History of [id number] SCC right mandibular gingiva on lingual alveolus s/p right mandibulectomy, floorof mouth resection, right level I-IV neck dissection, tracheostomy (ENT) and left fibular free flap(OMFS) (03/06/24), adjuvant radiation therapy (completed 07/11/2024). Prior PET/CT with diagnostic neck CT from 11/04/2024 demonstrated complete response to therapy, with a Black 3 4 mm right retropharyngeal lymph node. Patient with right oral cavity cancer of the right mandibular gingiva cancer and abnormal CT scan. Scan for follow up therapy as part of subsequent treatment plan. PRIOR EXAMS: comparison: 11/04/2024, NM PET/CT (F18 FDG) WITH DIAGNOSTIC CT NECK AND CHEST WITH CONTRAST, 02/01/2024, NM PET/CT (F18 FDG) BASE OF SKULL TO MID-THIGH SCAN correlation: 03/23/2024, CT SOFT TISSUE NECK WITH CONTRAST RADIOPHARMACEUTICAL: 10 mCi 18-FDG RADIATION EXPOSURE: NECK: CTDI (mGy): 8.53; DLP (mGy-cm): 268.16 TRUNK: CTDI (mGy): 2.90; DLP (mGy-cm): 244.81 18-FDG PET/CT: TECHNIQUE: PET/CT IMAGING PROCEDURE: The patient fasted for at least 6 hours prior to injection of radiotracer. After intravenous administration of radiotracer, the patient incubated in a quiet dimly lit room for 55 minutes. Blood serumglucose at the time of injection was 156 mg/dl. After incubation, a PET/CT scan was done from the base of the skull to mid thighs using 3D technique for the trunk with the arms up and 3D technique for the neck with the arms down. CT scans to matchthe PET/CT scans were done for attenuation correction and lesion localization. All imaging was donewith a Unified - Discovery 710 PET/CT unit. Three dimensional (3D) MIP images were constructed from the attenuation corrected PET data set using the [employer] workstation. The above CT Scan was performed using automated exposure control accounting for patient size. QC: LIVER 3D: SUV max: 3.7 SUV mean: 2.9 Mediastinal Blood Pool:3D SUV max 2.8 SUV mean 2.3 PET/CT Scan FINDINGS: It is not possible to accurately evaluate for the presence or absence of malignant foci in the included portion of the brain due to interference from intense activity in normal background brain tissue. Head and neck: Decreased activity in the skin of the nose of uncertain clinical significance, possibly inflammatory (SUV max 6.1, previously 7.3). Redemonstration postsurgical changes related to right mandibulectomy with fibular free flap reconstruction, resection of the right submandibular gland and right neck level I and II dissection. No focal intense hypermetabolic activity at the surgical site to suggest local recurrence. There is tracer activity along the lateral aspect of the right internal jugular vein corresponding to a 4 mm soft tissue density that could represent a subcentimeter right VB cervical lymph node withSUV max 2.8 (image 45) greater than the activity in the right IJ SUV max 2.3, unchanged in size butdecreased in activity from prior study when the SUV max was 3.8. This is equivocal for metastasis since since it could also represent inflammation within the muscle wall No hypermetabolic or enlarged lymph nodes are seen elsewhere in the neck including in the right retropharyngeal region. Chest: No abnormal hypermetabolic activity in the lungs. No suspicious hypermetabolic or morphologically abnormal mediastinal, hilar or axillary lymph nodes. Diffuse moderate uptake within the esophagus with suggestion of mild circumferential esophageal wall thickening, findings more conspicuous compared to prior. Abdomen pelvis: No suspicious uptake in the abdominal solid organs. A previously described 8 mm gia hepatis lymph node with low moderate activity is unchanged in size and demonstrates no substantial FDG uptake on the current study, likely resolved reactive changes.No suspicious FDG uptake in the abdominopelvic lymph nodes. Overall similar configuration of diffusely increased tracer activity in the rectosigmoid region anddescending colon. Musculoskeletal: New focal intense uptake in the soft tissues adjacent to the right ischial tuberosity without associated bone lesion, findings likely related to strain at the hamstrings origin. Unchanged inflammatory activity in the soft tissue between the L3-[address] of the chest, abdomen and pelvis: Triple vessel coronary artery calcifications. Atherosclerotic calcifications of the thoracic aorta and its branches. Calcified subcarinal lymph node without uptake likely related to prior granulomatous disease. Moderate stool throughout the colon. Colonic diverticulosis. Aortoiliac atherosclerotic calcifications. Multilevel degenerative changes of the spine. Nodular contour of the posterior border of the liver along with slight enlargement of the left lobethe liver may represent cirrhosis which ultrasound could be performed to establish this diagnosis. IMPRESSION: 1. 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, CMS/HCC V28) Patient is a pleasant 70-year-old [place]-speaking man, history and physical done with the help of interpretation, who diagnosed last year with locally advanced squamous cell carcinoma of oral mucosa/gingiva, patient had extensive oral surgery in [place] for T3 N0 M0 pathology, patient underwent adjuvant radiation by Dr. Flanagan which he finished earlier this year, patient couple months ago underwent PET CT scan that showed no evidence of significant recurrence there were some posttherapy changes I explained patient about his PET scan as well as his overall prognosis which seems very nice, I gave him reassurance he does not have any evidence of recurrence of disease PLAN: Continue follow-up with his space officer in [place] Return to office in 6 months Tawana Chang MD [1] Patient Active Problem List Diagnosis Anxiety Depression Diabetes mellitus (CMS/HCC V24, CMS/HCC V28) Hyperlipidemia Hypertension Hypothyroidism Psoriasis Primary insomnia 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, CMS/HCC V28) Prostate cancer (CMS/HCC V24, CMS/HCC V28) Renal failure Cough Snoring Stage 1 chronic kidney disease Stage 3a chronic kidney disease (CMS/HCC V24, CMS/HCC V28) Suspected COVID-19 virus infection Transaminitis Vasovagal syncope Reactive depression Mixed hyperlipidemia Essential hypertension Hypothyroidism (acquired) Chronic midline low back pain without sciatica Continuous leakage of urine Dysphagia Erectile dysfunction following radical prostatectomy Fatigue due to sleep pattern disturbance Hepatic steatosis Lightheadedness Lower abdominal pain Obstructive sleep apnea syndrome Polyp of colon [2] Past Medical History: Diagnosis Date Arthritis DX:Arthritis Chronic kidney disease DX:Chronic kidney disease Depression DX:Depression Diabetes mellitus ([facility] V24, [facility] V28) DX:Diabetes mellitus (HCC) Hypertension DX:Hypertension Obstructive sleep apnea syndrome 08/18/2015 DX:Obstructive sleep apnea syndrome Primary insomnia 04/16/2024 Prostate cancer ([facility] V24, [facility] V28) DX:Prostate cancer (HCC) [3] Family History Problem Relation Name Age of Onset Diabetes Mother Colon cancer Father [4] Current Outpatient Medications: acetaminophen (TYLENOL) 325 mg tablet, Take 3 tablets (975 mg total) by mouth every 6 hours as needed., Disp: , Rfl: amLODIPine (NORVASC) 10 mg tablet, Take 1 tablet (10 mg total) by mouth daily., Disp: , Rfl: Antacid-Antigas 200-200-20 mg/5 mL suspension, MIX with 150 ML lidocaine viscous AND timmy-dryl, SHAKE WELL SWISH AND SPIT OUT 5 TO 10 ML EVERY THREE HOURS NEEDED mucositis NEEDED FOR PAIN, Disp: 150 mL, Rfl: 3 atorvastatin (LIPITOR) 10 mg tablet, Take 1 tablet (10 mg total) by mouth daily., Disp: , Rfl: betamethasone valerate (VALISONE) 0.1 % ointment, APPLY TOPICALLY TO THE AFFECTED AREA(S) TWICE DAILY IN THE MORNING AND AT BEDTIME DIRECTED, Disp: , Rfl: chlorhexidine (PERIDEX) 0.12 % solution, Use 15 mL in the mouth or throat 4 times daily., Disp: , Rfl: cholecalciferol (VITAMIN D-3) 50 mcg (2,000 unit) capsule, Take 50 mcg by mouth daily., Disp: , Rfl: diphenhydrAMINE (BENADRYL) 12.5 mg/5 mL liquid, MIX WITH 150 ML lidocaine viscous AND antacid liquid, SHAKE WELL SWISH AND SPIT OUT 5 TO 10 ML EVERY THREE HOURS NEEDED mucositis NEEDED FOR PAIN, Disp: 150 mL, Rfl: 3 diphenhydrAMINE 12.5 mg/5 mL elixir 50 mg, aluminum-magnesium hydroxide- simethicone 400-400-40 mg/5mL suspension 20 mL, lidocaine 2 % solution 20 mL, Swish and spit 5 mL every 3 (three) hours if needed for mucositis for up to 116 doses. 5-10 mLs every 3 hours., Disp: 580 each, Rfl: 2 insulin glargine (LANTUS SoloStar) 100 unit/mL (3 mL) injection pen, Inject 24 Units under the skindaily., Disp: , Rfl: insulin lispro 100 unit/mL injection, Inject 0-20 Units under the skin 5 times daily., Disp: , Rfl: levothyroxine (SYNTHROID, LEVOTHROID) 50 mcg tablet, Take 1 tablet (50 mcg total) by mouth daily., Disp: , Rfl: omeprazole (PriLOSEC) [address] capsule, Take 1 capsule (20 mg total) by mouth daily., Disp: , Rfl: sertraline (ZOLOFT) 100 mg tablet, Take 1 tablet (100 mg total) by mouth daily., Disp: , Rfl: tirzepatide (Mounjaro) 2.5 mg/0.5 mL injection, Inject 0.5 mL (2.5 mg total) under the skin every 7(seven) days., Disp: , Rfl: traZODone (DESYREL) 50 mg tablet, Take by mouth at bedtime., Disp: , Rfl: Alcohol Prep Pads pads, medicated, USE 2 PADS FOUR TIMES DAILY, Disp: , Rfl: BD Madeleine 2nd Gen Pen Needle 32 gauge x 5/32 needle, use to inject insulin, Disp: , Rfl: BD Ultra-Fine Mini Pen Needle 31 gauge x 3/16 needle, USE WITH LANTUS UNDER THE SKIN DAILY, Disp: , Rfl: blood pressure test kit-large kit, USE TO CHECK BLOOD PRESSURE ONCE DAILY IN THE MORNING DIRECTED, Disp: , Rfl: blood sugar diagnostic (FreeStyle Lite Strips) test strip, USE TO TEST BLOOD SUGAR FOUR TIMES DAILY, Disp: , Rfl: doxepin (SINEquan) 10 mg capsule, Take 1 capsule (10 mg total) by mouth. at bedtime, Disp: , Rfl: FreeStyle Lite Meter monitoring kit, , Disp: , Rfl: lidocaine (XYLOCAINE) 2 % solution, MIX WITH 150 ML antacid liquid AND timmy- dryl, SHAKE WELL, SWISHAND SPIT OUT 5 TO 10 ML EVERY THREE HOURS NEEDED FOR MUCOSITIS, Disp: 150 mL, Rfl: 3 [5] No Known Allergies documented in this encounter Plan of Treatment Upcoming Encounters Date Type Department Care Team (Late st Contact Info) Description 07/09/2025 2:45 PM EST Office Visit Orthopedic Surgery - [place] [address] [phone] Mio Rodriguez DPM [address] [address] 11/18/2025 1:45 PM EDT Office Visit [facility] Hematology Oncology [address] [place] [phone] Tawana Chang MD [address] [place] [address] documented as of this encounter Goals Goal Patient Goal Type Associated Problems [...] neck area which results in improved speech documented as of this encounter Visit Diagnoses Diagnosis 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, CMS/HCC V28)- Primary documented in this encounter Discontinued Medications Medication Sig Discontinue Reason Start Date End Da te aspirin 81 mg chewable tablet Chew 1 tablet (81 mg total) daily. 04/10/2024 05/20/2025 aspirin 81 mg chewable tablet Chew 1 tablet (81 mg total) daily. 04/10/2024 05/20/2025 dulaglutide (Trulicity) 0.75 mg/0.5 mL pen injector injection Inject into the skin. 05/20/2025 secukinumab (Cosentyx Pen) 150 mg/mL pen injector 03/02/2023 05/20/2025 documented as of this encounter Historical Medications * This list may reflect changes made after this encounter. tirzepatide (Mounjaro) 2.5 mg/0.5 mL injection Inject 0.5 mL (2.5 mg total) under the skin every 7 (seven) days. added in this encounter Care Teams Form Layer Relationship Specialty Start Date End Date Brea Maciel MD [address] [place] [address] PCP - General 10/08/23 documented as of this encounter
--- NOTE | ~2025-05-23 | US_ITS ---
EXAMINATION: US ABDOMEN COMPLETE WITH LIVER ELASTOGRAPHY HISTORY: transaminitis TECHNIQUE: Real-time grayscale ultrasound imaging of the abdomen was performed and images were reviewed. COMPARISON: Comparison is made with the prior examination dated 10/11/2023. FINDINGS: Liver: The right lobe of the liver measures 15.9 cm in size. The left lobe of the liver measures 10.6 cm in size. The liver demonstrates normal homogeneous echotexture. There is a mildly nodular hepatic contour, suggestive of cirrhosis.. No focal mass or intrahepatic biliary ductal dilatation is identified. There is normal hepatopedal flow in the portal vein. Ultrasound elastography of the liver was performed with 10 separate measurements of the liver parenchyma with the patient in the supine position. Measurements were obtained approximately 2 cm below Kristofer's capsule and perpendicular to the capsule. The median shear wave velocity is 1.81 m/s (previously 1.88 m/s). The interquartile range/median (IQR/median) is 0.15. Gallbladder and biliary tree: There is thickening of the gallbladder wall adjacent to the liver measuring up to 8mm in thickness. No calculi are identified. There is no pericholecystic fluid. There is no sonographic Banks sign. The common bile duct is not visualized. Kidneys: The right kidney measures 9.8 cm in length. The left kidney measures 10.1 cm in length. The right kidney is unremarkable. There is a 10 mm cyst at the lower pole. A 7 x 5 mm calculus is noted at the lower pole. There is a probable junctional parenchymal defect in the midportion of the left kidney. There is no hydronephrosis. Pancreas: The pancreatic head, neck, and body are unremarkable. The pancreatic tail is obscured by bowel gas. Spleen: The spleen is normal in size and contour, measuring 12.7 cm in length. Abdominal aorta and inferior vena cava: The visualized portions of the abdominal aorta and inferior vena cava are normal in caliber. There is no free fluid in the abdomen. US/US abdomen comp w elastography IMPRESSION: Nodular hepatic contour, suggestive of cirrhosis. Probable gallbladder wall thickening which could be secondary to cirrhosis. Follow-up is recommended. The median shear wave velocity in the liver is 1.81 m/s, corresponding to a median liver stiffness of 9.9 kPa. The IQR/median value is 0.15. This is indicative of a quality data set. Findings are indicative of a high elastography value suggestive of compensated advanced chronic liver disease. REFERENCE: Society of Radiologists in Ultrasound Liver Stiffness Thresholds (2020): LIVER STIFFNESS THRESHOLDS: *Shear wave velocity less than 1.3 m/s (Liver Stiffness equal or less than 5 kPa): High probability of being normal. *Shear wave velocity less than 1.7 m/s (Liver Stiffness less than 9 kPa): In the absence of other known clinical signs, rules out compensated advanced chronic liver disease. *Shear wave velocity between 1.7-2.1 m/s (Liver Stiffness 9-13 kPa): Suggestive of compensated advanced chronic liver disease but need further test for confirmation. *Shear wave velocity between 2.1-2.4 m/s (Liver Stiffness 13-17 kPa): Rules in compensated advanced chronic liver disease. *Shear wave velocity greater than 2.4 m/s (Liver Stiffness over 17 kPa): Suggestive of clinically significant portal hypertension. QUALITY OF DATA SET: *IQR/Median value equal or less than 0.30 implies a quality data set. *IQR/Median value over 0.30 implies a poor quality data set. SIGNIFICANT CHANGE FROM PRIOR EXAM: Significant change if liver stiffness measurement is 10% or greater from prior exam. OTHER CONSIDERATIONS: The stage of liver fibrosis may be overestimated in the setting of acute hepatitis, liver inflammation, elevated liver function tests, hepatic vascular congestion, obstructive cholestasis, non-fasting state, and infiltrative diseases such as amyloidosis and lymphoma. In some patients with NAFLD, the liver stiffness thresholds for compensated advanced chronic liver disease may be lower. In causes other than viral hepatitis and NAFLD, liver stiffness thresholds are not well established. Electronically signed by: Leopoldo Veliz MD 05/25/2025 07:01 AM DEVANTE
--- OUTSIDE RECORDS SUMMARY | 2025-05-23 09:29 | XMS_ITS | Encounter Summary ---
Author Organization [facility] Address [address] [place] [address] Care Team Providers Care Valet Cashier Name Role Phone Jaylene Kong MD Primary Care Provider [phone] Charis Liz PA-C Primary Care Provider [phone] Laura Hogue APRN Primary Care Provider [phone] Apple Villatoro DO Unavailable [phone] Encounter Details Date Type Department Care Team (Late st Contact Info) Description 11/25/2015 Scanned Document [address] [phone] Provider, Generic Social History Tobacco Use Types Packs/Day Years Used Date Smoking Tobacco: Former Cigarettes 0 Q uit: 11/24/1985 Alcohol Use Standard Drinks/Week [...] documented as of this encounter Care Teams Valet Cashier Relationship Specialty Start Date End Date Jaylene Kong MD PCP - General Internal Medicine 09/28/15 04/04/17 Charis Liz PA-C PCP - General 04/05/17 09/03/19 Laura Hogue APRN [address] [place] [id number] PCP - General Family Medicine 09/04/19 Apple Villatoro DO [address] [place] [id number] Granite Polisher Cardiovascular Disease 04/12/23 documented as of this encounter
--- OUTSIDE RECORDS SUMMARY | 2025-05-23 09:29 | XMS_ITS | Encounter Summary ---
Author Organization [facility] Address [address] [place] [address] Care Team Providers Care Vp Design Name Role Phone Laura Hogue APRN Primary Care Provider [phone] Apple Villatoro DO Unavailable [phone] Encounter Details Date Type Department Care Team (Late st Contact Info) Description 03/01/2020 Scanned Document [facility] Colorectal Surgery [place] [address] [place] [address] Laura Hogue APRN [address] [place], [place] [phone] Social History Tobacco Use Types Packs/Day Years Used Date Smoking Tobacco: Former Cigarettes 0 Q uit: 11/24/1985 Smokeless Tobacco: Never Alcohol [...] documented as of this encounter Care Teams Vp Design Relationship Specialty Start Date End Date Laura Hogue APRN [address] [place] [id number] PCP - General Family Medicine 09/04/19 Apple Villatoro DO [address] [place] [address] Asset Availability Leader Cardiovascular Disease 04/12/23 documented as of this encounter
--- OUTSIDE RECORDS SUMMARY | 2025-05-23 09:29 | XMS_ITS | Clinical Summary ---
Author Organization [facility] Prior to 11/01/24 Address [address] [place] [address] Care Team Providers Care Resource Conservation Manager Name Role Phone Pcp, Chester Akbar MD Primary Care Provider [phone] Allergies Active Allergy Reactions Criticality Noted Date [...] Recent Progress Patient-Stated? Author Carry glucose tablets [facility] Kimberlyn Coyle, RN Take Novolog 5-10 minutes before each meal [facility] Kimberlyn Coyle, RN Schedule eye exam [facility] Kimberlyn Coyle, RN Check BG TID before breakfast, lunch and dinner and keep log [facility] Kimberlyn Coyle, RN Care Teams Resource Conservation Manager Relationship Specialty Start Date End Date Pcp, Chester Akbar MD [address] [place] [address] PCP - General Laborer [place] 08/17/21
--- OUTSIDE RECORDS SUMMARY | 2025-05-23 09:29 | XMS_ITS | Encounter Summary ---
Author Organization [facility] Address [address] [facility] [address] [place] [address] Care Team Providers Care Railroad Yard Worker Name Role Phone Brea Maciel MD Primary Care Provider [phone] Encounter Details Date Type Department Care Team ([facility] Contact Info) Description 05/19/2025 Telephone [facility] [address], [place] [phone] Brea Maciel MD [address] [place] [address] Social History Tobacco Use Types Packs/Day Years [...] Telephone Encounter - Lorin Montana LPN - 05/19/2025 9:36 AM EST PA Not found scanned in pt chart. Pa generated Via [employer] ----- Message from Brea Maciel MD sent at 05/14/2025 3:59 PM EST ----- Patient has CCA, needs a PA for calciprotene that was rx'ed by john in 2023, there was a PA that year an we just copy and paste info in PA and sent * Telephone Encounter - Lorin Montana LPN - 05/19/2025 9:36 AM EST ----- Message from Brea Maciel MD sent at 05/14/2025 3:59 PM EST ----- Patient has CCA, needs a PA for calciprotene that was rx'ed by john in 2023, there was a PA that year an we just copy and paste info in PA and sent documented in this encounter Plan of Treatment Upcoming Encounters Date Type Department Care Team (Late st Contact Info) Description 06/15/2025 3:30 PM EST Office Visit [facility] [address] [place] [address] Brea Maciel MD [address] [place] [address] 07/21/2025 9:30 AM EST Office Visit [facility] [address] [place] [address] Manjinder Tucker MD [address] [place] [address] documented as of this encounter Goals Goal Patient Goal Type Associated Problems Recent Progress Patient-Stated? Author Help patients manage their type 2 diabetes Care Plan Help patients manage their type 2 diabetes No Monse Briceño [place] Weekly blood pressure task Care Plan Weekly blood pressure task No Monse Briceño [place] Help patients manage their type 2 diabetes Care Plan Help patients manage their type 2 diabetes No Monse Briceño [place] Patient has chronic kidney disease Care Plan Patient has chronic kidney disease No Monse Briceño [place] Weekly blood pressure task Care Plan Weekly blood pressure task No Monse Briceño [place] Patient has chronic kidney disease Care Plan Patient has chronic kidney disease No Monse Briceño [place] Weekly blood pressure task Care Plan Weekly blood pressure task No Monse Briceño [place] Weekly blood pressure task Care Plan Weekly blood pressure task No Monse Briceño [place] Patient has chronic kidney disease Care Plan Patient has chronic kidney disease No Monse Briceño [place] Patient has chronic kidney disease Care Plan Patient has chronic kidney disease No Monse Briceño [place] Weekly blood pressure task Care Plan Weekly blood pressure task No Lorin Montana LPN Weekly blood pressure task Care Plan Weekly blood pressure task No Lorin Montana LPN Patient has chronic kidney disease Care Plan Patient has chronic kidney disease No Lorin Montana LPN Patient has chronic kidney disease Care Plan Patient has chronic kidney disease No Lorin Montana LPN documented as of this encounter Visit Diagnoses Not on filedocumented in this encounter Additional Health Concerns Active Problems Noted Date Diagnosed Date Help patients manage their type 2 diabetes 05/13 Weekly blood pressure task 05/13/2025 Help patients manage their type 2 diabetes 05/13 Patient has chronic kidney disease 05/13/2025 Weekly blood pressure task 05/13/2025 Patient has chronic kidney disease 05/13/2025 Weekly blood pressure task 05/13/2025 Weekly blood pressure task 05/13/2025 Patient has chronic kidney disease 05/13/2025 Patient has chronic kidney disease 05/13/2025 Weekly blood pressure task 05/19/2025 Weekly blood pressure task 05/19/2025 Patient has chronic kidney disease 05/19/2025 Patient has chronic kidney disease 05/19/2025 Assessment Noted Time PHQ-9 Depression Total Score: 0 07/09/19 25 8:57 AM EST documented as of this encounter Care Teams Railroad Yard Worker Relationship Specialty Start Date End Date Brea Maciel MD [address] [place] [address] PCP - General Family Medicine 09/21/23 documented as of this encounter
--- OUTSIDE RECORDS SUMMARY | 2025-05-23 09:29 | XMS_ITS ---
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 M smoker with a aV1E1D6 moderately differentiated SCC of the R mandibular [...] within accepted guidelines, and the oncologist in [place] might not give exactly the same recommendation [...] of lower gingiva (CMS/HCC V24, CMS/HCC V28) Treatment Medications Current Day (Day 1 [...] of lower gingiva (CMS/HCC V24, CMS/HCC V28) Treatment Courses* Course 1 05/26/2024 - 07/11/2024 Treatment Sites Treatment Period Fraction Dose Fractions Total Dose Rt lower gum/Bneck 05/26/2024 - 07/11/2024 200 / 200 cGy 30 / 30 6,000 / 6,000 cGy Resolved Problems Problem Noted Date Diagnosed Date Resolved Date Oral cancer 04/17/2024 04/24/2024
--- OUTSIDE RECORDS SUMMARY | 2025-05-23 09:29 | XMS_ITS | Encounter Summary ---
Author Organization [facility] [facility] Address [address] [facility] [address] [place] [address] Care Team Providers Care Ophthalmic Medical Technician Name Role Phone Brea Maciel MD Primary Care Provider [phone] Reason for Visit * Reason Onset Date Comments FYI 08/06/2024 Encounter Details Date Type Department Care Team ([facility] Contact Info) Description 08/06/2024 Telephone [facility] [address] [place] [address] Brea Maciel MD [address] [place] [phone] FYI Social History Tobacco Use Types Packs/Day [...] 4:45 PM EST Tc from [facility] calling in stating that they are discharging pt from speech therapy today. (08/06/2024) documented in this encounter Plan of Treatment Upcoming Encounters Date Type Department Care Team (Late st Contact Info) Description 06/15/2025 3:30 PM EST Office Visit [facility] [address] [place] [address] Brea Maciel MD [address] [place] [address] 07/21/2025 9:30 AM EST Office Visit [facility] [address] [place] [address] Manjinder Tucker MD [address] [place] [address] documented as of this encounter Visit Diagnoses Not on filedocumented in this encounter Additional Health Concerns Assessment Noted Time PHQ-9 Depression Total Score: 0 07/09/19 8:57 AM EST documented as of this encounter Care Teams Ophthalmic Medical Technician Relationship Specialty Start Date End Date Brea Maciel MD [address] [place] [phone] PCP - General Family Medicine 09/21/23 Home [facility] 10/01/24 05/03/25 documented as of this encounter
--- OUTSIDE RECORDS SUMMARY | 2025-05-23 09:29 | XMS_ITS | Patient Health Record ---
Author Organization [facility] enter Address [address] [place] [address] Care Team Providers Care Grey Percher Name Role Phone Laura Hogue Primary Care [...] Duration: 999 days Dx I10 Active Pen Mereta 3/16 31G X 5 MM use with insulin subcutaneously daily with lantus. E11.22; Duration: 90 days andorran labels please Active Gabapentin 400 MG 1 [...] 1 tab(s) Orally qhs; Duration: 90 days andorran labels please Unknown Blood Pressure Kit - [...] O nce a day; Duration: 90 days andorran labels please 01/09/2020 Active Atorvastatin Calcium 10 MG 1 tablet Orally at bedtime (once a day); Duration: 90 days andorran labels please Active Metoprolol Succinate ER 25 [...] Orally twice a day; Duration: 90 days andorran labels please Active FreeStyle Marlen 2 [place] - 1 PER YEAR; Duration: 1 Active amLODIPine Besylate 10 MG 1 tablet Orally daily; Duration: 90 days Active Pantoprazole Sodium 40 MG 1 tablet Orally Once a day; Duration: 30 day(s) 08/29/2021 Active Losartan Potassium 100 MG as directed Orally daily; Duration: 90 days andorran labels please 02/24/2019 Active Glucometer 1 as directed intradermal tid qac; Duration: 999 days 07/17/2022 Active Chlorthalidone 25 mg 1 tablet in the morning with food Orally Once a day; Duration: 90 days andorran labels please Active Sertraline HCl 100 MG [...] 3 yrs and above Unknown 05/05/2010 Administered ([facility])Status:Com pleted Influenza (split), 3 yrs and above Unknown 06/09/2010 Administered ([facility])Status:Com pleted Novel [id number], all formulations Unknown 05/14/2009 Administered ([facility])Status:Com pleted Tdap Unknown 12/01/2010 Administered ([facility])Status: Com pleted Social History Tobacco Use: Social [...] with others, in a hotel, in a correction, living outside on the street, on a [...] phone, visiting friends or family, going to rastafarian or club meetings) More than 5 times a week How stressed are you? Stress is when someone feels tense, nervous, anxious, or cant sleep at night because their mind is troubled Very much In the past year have you spent more than 2 nights in a row in a half-way, shelter, intermediate center, or juvenile correctional facility? No Are [...] Peripheral circulatory disorder associated with diabetes mellitus (606068311) Type 2 diabetes mellitus with other circulatory 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s (E11.59) 2015 Active confirmed (Migrated)unc ontrolled sugar level over 200 Problem Hyperglycemia due to type 2 diabetes mellitus (387082905950516) Type 2 diabetes mellitus with hyperglycemia (E11.65) Active confirmed Problem Generalized anxiety disorder (49650208) Generalized anxiety disorder (F41.1) Active confirmed Problem Chronic pain (87706450) Other chronic pain (G89.29) Active confirmed Problem Chronic kidney disease due to hypertension (339988956550211) Hypertensive chronic kidney disease with stage 1 through stage 4 chronic kidney disease, or unspecified chronic kidney disease (I12.9) Active confirmed Problem Localized, primary osteoarthritis of the wrist (786503608) Primary osteoarthritis, 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) Active confirmed Problem Localized, primary osteoarthritis of the hand (490842104) Primary osteoarthritis, right hand (M19.041) Active confirmed Problem Pes planus (16506195) Flat foot [pes planus] (acquired), right foot (M21.41) Active confirmed Problem Pes planus (00402396) Flat foot [pes planus] (acquired), left foot (M21.42) Active confirmed Problem Cervicalgia (77025794) Cervicalgia (M54.2) Active confirmed C2, C4- per X-ray: C/spine loss of lordosis to Kyphosis Disc deg C7-T1 Spondylosis Problem Gastroesophageal reflux disease without esophagitis (175768513) Gastroesophageal reflux disease without esophagitis (K21.9) Active confirmed Problem Vertigo (881016360) Vertigo (R42) Active confirmed Problem Erectile dysfunction (disorder) (828596915) Erectile dysfunction, unspecified erectile dysfunction type (N52.9) Active confirmed Problem Arthritis (1036363) Arthritis (M19.90) Active confirmed Problem Elevated liver enzymes level (377508896) Elevated liver enzymes (R74.8) Active confirmed Problem Depressive disorder (06680606) Depressive disorder (F32.9) Active confirmed Problem History of malignant neoplasm of prostate (995004685) History of prostate cancer (Z85.46) Active confirmed Problem Steatosis of liver (609067212) Hepatic steatosis (K76.0) Active confirmed Problem Enthesopathy (02878705) Right wrist tendonitis (M77.8) Active confirmed Problem Cortical age-related cataract of both eyes (817453490915951) Cortical age-related cataract of both eyes (H25.013) Active confirmed Problem Lumbosacral spondylosis without myelopathy (19121179) 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) Active confirmed Problem Cervical spondylosis without myelopathy (268704324) Spondylosis of cervical region without myelopathy or radiculopathy (M47.812) Active confirmed Problem Chronic kidney disease stage 3 (534598271) Chronic kidney disease, stage III (moderate) (N18.30) Active confirmed Problem Articular cartilage disorder of wrist (259259671) Degenerative TFCC tear, right (M24.131) Active confirmed Problem Diabetic renal disease (637446990) Type 2 diabetes mellitus with diabetic chronic kidney disease (E11.22) Active confirmed High 09/2018, tradjenta removed due to pancreatitis Problem Schizoaffective disorder, depressive type (87782432) Schizoaffective disorder, depressive type (F25.1) Active confirmed med Problem Psoriasis (3161320) Psoriasis (L40.9) Active confirmed med Problem Long-term current use of insulin (943252511) senior living current use of insulin (Z79.4) Active confirmed High Problem Nuclear senile cataract (786401488) Nuclear sclerosis of both eyes (H25.13) Active confirmed med Problem Essential hypertension (70385895) Essential (primary) hypertension (I10) Inactive confirmed 3 rechecked manually 01/06/19, just under goal of 140/90.contin ue current medications. Problem Balanitis (84136530) Balanitis (N48.1) Inactive confirmed Problem Chronic kidney disease stage 3 (disorder) (315674862) Chronic kidney disease, stage III (moderate) (N18.3) Inactive confirmed High [place] physican 08/2016 follows [place] : Stage III renal disease. to see renal in 4 months . DM since 2005 and HTn since 2013--told them I follow his Bs and tellme he sees Diabetic center at [facility] Problem Type II diabetes mellitus without 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 (556950718) Encounter for diabetic foot exam (E11.9) Inactive confirmed Problem Primary hypertension (73125645) Primary hypertension (I10) Inactive confirmed Problem Hypothyroidism (85475844) Hypothyroidism, unspecified type (E03.9) Active confirmed Med Problem Hyperlipidaemia (40230531) Hyperlipidemia, unspecified hyperlipidemia type (E78.5) Active confirmed med Problem Presbyopia (37444843) Presbyopia of both eyes (H52.4) Active confirmed [...] - Medicare Replacement Plan [address] [place] [address] [id number] Mushtaq lowryFeliciano Self - patient is the insured [employer] [address] [place], [place] [id number] Mushtaq Jeffsri lowryFeliciano Self - patient is the insured DENTAL Medicaid SECONDARY [address] [place] [address] [id number] Mushtaq Jeffsri lowry, Feliciano Self - patient is the insured [facility] Medicare Plans [address] [place] [address] [id number] Mushtaq Jeffsri lowryFeliciano Self - patient is the insured DENTAL [place] [address] [address] [place] [address] [id number] Mushtaq Ricesuma Feliciano lowry Self [...]
--- OUTSIDE RECORDS SUMMARY | 2025-05-23 09:29 | XMS_ITS | Clinical Summary ---
Author Organization [facility] Address [address] [place] [address] Care Team Providers Care Hand Glass Cutter Name Role Phone LennieLoriefrances ESTRADA Primary Care Provider Apple Villatoro DO Unavailable [phone] Allergies Active Allergy Reactions Criticality Noted [...] Admin Instructions . Active Continuous Blood Gluc Recruiting Internship (FreeStyle Marlen 2 [place]gins) Device 1 PER YEAR Active Continuous Blood Gluc Sensor (FreeStyle Marlen 2 Sensor) [facility] See Admin Instructions . 10/28/2021 Active ibuprofen [...] Comprehensive Metabolic Panel (02/28/2023 1:22 PM EDT) [facility] Glucose 409(HH) 65 - 99 mg/dL 02/28/2023 2:17 PM EDT [facility] Comment:Fasting: <100 mg/dL, Non-Fasting: <200 mg/dL (ADA 2005) Blood Urea Nitrogen (BUN) 42(H) 8 - 21 mg/dL 02/28/2023 2:17 PM [facility] Creatinine 1.5(H) 0.5 - 1.3 mg/dL 02/28/2023 2:17 PM [facility] eGFR 51(L) >59 02/28/2023 2:17 PM [facility] Comment:CKD-EPI (2020) in mL /min/1.73 sq meters. Sodium 133(L) 136 - 145 mmol/L 02/28/2023 2:17 PM [facility] Potassium 3.7 3.4 - 5.3 mmol/L 02/28/2023 2:17 PM [facility] Chloride 95(L) 98 - 107 mmol/L 02/28/2023 2:17 PM [facility] CO2 25 22 - 33 mmol/L 02/28/2023 2:17 PM [facility] Calcium 9.7 8.7 - 10.5 mg/dL 02/28/2023 2:17 PM [facility] Alkaline Phosphatase 105 45 - 128 U/L 02/28/2023 2:17 PM [facility] Aspartate Aminotrans (AST) 40 10 - 55 U/L 02/28/2023 2:17 PM [facility] Alanine Aminotrans (ALT) 59(H) 10 - 55 U/L 02/28/2023 2:17 PM [facility] Bilirubin, Total 0.5 0.2 - 1.0 mg/dL 02/28/2023 2:17 PM [facility] Protein, Total 7.7 6.3 - 8.3 g/dL 02/28/2023 2:17 PM [facility] Albumin 4.2 3.4 - 4.8 g/dL 02/28/2023 2:17 PM [facility] BUN/Creatinine Ratio 28(H) 10.0 - 25.0 Ratio 02/28/2023 2:17 PM [facility] Globulin 3.5 1.5 - 3.9 g/dL 02/28/2023 2:17 PM [facility] Albumin/Globulin Ratio 1.2 1.0 - 3.0 Ratio 02/28/2023 2:17 PM [facility] Anion Gap 13 7 - 17 02/28/2023 2:17 PM EDT [facility] Blood specimen (specimen) (Plasma/Serum) 02/28/2023 1:22 PM EDT 02/28/2023 1:48 PM EDT [facility] LAB BLOOD ORDERABLES Final Re sult HOSPITAL LAB See Below [facility] [address] [facility] [address] * POCT Microalbumin (02/12/2023 10:37 AM EDT) Microalbumin, POC 10.0 MG/L Creatinine Urine, POC 100.0 MG/DL Microalbumin/Cr eat Ratio, POC <30 MG/G Lot Number [id number] Physician'S Assistant Pass Pass Urine 02/12/2023 10:3 7 AM [...] EDT 03/06/2018 7:56 AM EDT Radha Carter PHYSICIAN PRACTICE ADMINISTRATOR LAB BLOOD ORDERABLES Final Res ult HOSPITAL [...] Decision Thoroughly Discussed with: Patient Care Teams Hand Glass Cutter Relationship Specialty Start Date End Date Laura Hogue APRN [address] [place] [address] PCP - General Family Medicine 09/04/19 Apple Villatoro DO [address] [place] [address] Floor Worker Well Service Cardiovascular Disease 04/12/23
--- OUTSIDE RECORDS SUMMARY | 2025-05-23 09:29 | XMS_ITS | Clinical Summary ---
Author Organization [facility] Address [address] [place] [address] Phone Care Team Providers Care Steam Engineer Name Role Phone Brea Maciel MD Primary Care Provider [phone] Allergies No known active allergies Medications amLODIPine (NORVASC) 10 mg tablet Take 1 tablet (10 mg total) by mouth daily. 11/16/19 16 Active atorvastatin (LIPITOR) 10 mg tablet Take 1 tablet (10 mg total) by mouth daily. 01/28/20 18 Active insulin glargine (LANTUS SoloStar) 100 unit/mL (3 mL) injection pen Inject 24 Units under the skin daily. 11/15/19 16 Active insulin lispro 100 unit/mL injection Inject 0-20 Units under the skin 5 times daily. 03/25/20 24 Active levothyroxine (SYNTHROID, LEVOTHROID) 50 mcg tablet Take 1 tablet (50 mcg total) by mouth daily. 09/28/19 16 Active omeprazole (PriLOSEC) [address] capsule Take 1 capsule (20 mg total) by mouth daily. 04/10/20 24 Active sertraline (ZOLOFT) 100 mg tablet Take 1 tablet (100 mg total) by mouth daily. 11/13/19 16 Active acetaminophen (TYLENOL) 325 mg tablet Take 3 tablets (975 mg total) by mouth every 6 hours as needed. 04/10/20 24 Active Alcohol Prep Pads pads, medicated USE 2 PADS FOUR TIMES DAILY 09/21/19 24 Active betamethasone valerate (VALISONE) 0.1 % ointment APPLY TOPICALLY TO THE AFFECTED AREA(S) TWICE DAILY IN THE MORNING AND AT BEDTIME DIRECTED Active blood pressure test kit-large kit USE TO CHECK BLOOD PRESSURE ONCE DAILY IN THE MORNING DIRECTED 08/16/19 24 Active blood sugar diagnostic (FreeStyle Lite Strips) test strip USE TO TEST BLOOD SUGAR FOUR TIMES DAILY 09/21/19 24 Active FreeStyle Lite Meter monitoring kit 09/23/19 24 Active chlorhexidine (PERIDEX) 0.12 % solution Use 15 mL in the mouth or throat 4 times daily. 04/10/20 24 Active BD Madeleine 2nd Gen Pen Needle 32 gauge x 5/32 needle use to inject insulin Active BD Ultra-Fine Mini Pen Needle 31 gauge x 3/16 needle USE WITH LANTUS UNDER THE SKIN DAILY 07/13/19 24 Active traZODone (DESYREL) 50 mg tablet Take by mouth at bedtime. Active cholecalcifero l (VITAMIN D-3) 50 mcg (2,000 unit) capsule Take 50 mcg by mouth daily. 04/18/20 24 Active doxepin (SINEquan) 10 mg capsule Take 1 capsule (10 mg total) by mouth. at bedtime Active diphenhydrAMIN E 12.5 mg/5 mL elixir 50 mg, aluminum-magne sium hydroxide-luis thicone 400-400-40 mg/5 mL suspension 20 mL, lidocaine 2 % solution 20 mL Swish and spit 5 mL every 3 (three) hours if needed for mucositis for up to 116 doses. 5-10 mLs every 3 hours. 580 each 2 07/04/19 25 Active Antacid-Antiga s 200-200-20 mg/5 mL suspension MIX with 150 ML lidocaine viscous AND timmy-dryl, SHAKE WELL SWISH AND SPIT OUT 5 TO 10 ML EVERY THREE HOURS NEEDED mucositis NEEDED FOR PAIN 150 mL 3 09/25/19 25 Active diphenhydrAMIN E (BENADRYL) 12.5 mg/5 mL liquid MIX WITH 150 ML lidocaine viscous AND antacid liquid, SHAKE WELL SWISH AND SPIT OUT 5 TO 10 ML EVERY THREE HOURS NEEDED mucositis NEEDED FOR PAIN 150 mL 3 01/16/20 25 Active lidocaine (XYLOCAINE) 2 % solution MIX WITH 150 ML antacid liquid AND timmy-dryl, SHAKE WELL, SWISH AND SPIT OUT 5 TO 10 ML EVERY THREE HOURS NEEDED FOR MUCOSITIS 150 mL 3 01/16/20 25 Active tirzepatide (Mounjaro) 2.5 mg/0.5 mL injection Inject 0.5 mL (2.5 mg total) under the skin every 7 (seven) days. Active dulaglutide (Trulicity) 0.75 mg/0.5 mL pen injector injection Inject into the skin. 025 Discontinued aspirin 81 mg chewable tablet Chew 1 tablet (81 mg total) daily. 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 M smoker with a [id number] moderately differentiated SCC of the R mandibular [...] within accepted guidelines, and the oncologist in [place] might not give exactly the same recommendation [...] Encounters Date Type Department Care Team Description 05/20/2025 11:30 AM EST Office Visit [facility] Hematology Oncology [address] [place] [address] Tawana Chang MD 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, CMS/HCC V28) (Primary Dx) from Last 3 Months [...] DX:Hypertension Diabetes mellitus ([facility] V 24, [facility] V28) DX:Diabetes mellitus ([facility]) Obstructive sleep apnea syndrome 08/18/2015 DX:Obstructive sleep apnea syndrome Arthritis DX:Arthritis Depression DX:Depression Chronic kidney disease DX:Chroni c kidney disease Prostate cancer ([facility] V24 , [facility] V28) DX:Prostate cancer ([facility]) Primary insomnia 04/16/2024 Family History Medical History [...] F) 05/20/2025 12:57 PM EST Respiratory Rate 16 08/06/2024 1:34 PM EST Oxygen Saturation 100% 05/20/2025 12:57 PM EST Inhaled Oxygen Concentration - - Weight 68 kg (150 lb) 05/20/2025 12:57 PM EST Height 162.6 cm (5' 4 ) 06/12/2024 10:50 AM EST Body Mass Index 25.75 06/12/2024 10:50 AM EST Plan of Treatment Upcoming Encounters Date Type Department Care Team (Late st Contact Info) Description 07/09/2025 2:45 PM EST Office Visit Orthopedic Surgery - [place] [address] [address] Mio Rodriguez, DPJared [address] [address] 11/18/2025 1:45 PM EDT Office Visit [facility] Hematology Oncology [address] [place] [phone] Tawana Chang MD [address] [place] [address] Health Maintenance Due Date Last Done Comments Colorectal Cancer Screening: Colonoscopy 1955 Diabetes: Annual Foot Exam 02/06/1966 Diabetes: Annual [...] Ratio (uACR) 02/13/2024 02/12/2023 Depression Screening 06/04/2024 COVID-19 Vaccine (2 - Pfizer risk series) 03/23/2025 03/02/2025 Falls Risk Assessment 10/20/2025 10/20/2024 Diabetes: Blood Sugar Control Test (HGBA1C) 11/12/2025 05/14/2025, 03/02/2025, 12/26/2024, Additional history exists Diabetes: Annual GFR (Glomerular Filtration Rate) 01/16/2026 01/16/2025, 08/19/2024, 07/19/2024, Additional history exists Hypertension/CHF/CAD Annual BMP Blood Test 01/16/2026 01/16/2025, 08/19/2024, 07/19/2024, Additional history exists Cholesterol Screening (Lipid Panel) 08/19/2029 08/19/2024, 09/24/2023, 03/06/2018 DTaP,Tdap,and Td Vaccines (3 - Td or Tdap) 08/18/2031 08/17/2021, 03/05/2018 Hepatitis C Screening Completed 09/24/2023 Pneumococcal Vaccine: 50+ Years Completed 10/05/2023 Hepatitis A Vaccines Completed 01/23/2025, 10/05/19 Influenza Vaccine Completed 03/02/2025, 02/24/2018 HIB Vaccines [...] Final Result [facility] [address] [place] [address], from Last 3 Months or Most Recently Relevant to Health Maintenance Insurance [facility] OPT[facility] Member Subscriber Plan / Payer (Ef fective 2023-Present) Name:FELICIANO SANTANA Relation to Subscriber:Self Name:Feliciano Santana Payer ID:[id number] Group ID:[id number] Type:Not on file Address: [place] [address] [id number] Care Teams Steam Engineer Relationship Specialty Start Date End Date Brea Maciel MD [address] [place] [address] PCP - General 10/08/23
--- OUTSIDE RECORDS SUMMARY | 2025-05-23 09:29 | XMS_ITS | Clinical Summary ---
Author Organization [facility] Address [address] [place] [address] Care Team Providers Care Cattle Knocker Name Role Phone Charis Liz Primary Care Provider [phone] William Kaplan MD Unavailable Allergies Active Allergy [...] Site ID: [id number] Name: [facility] Address: [address] [place] [phone] Director: Roly Huerta M.D.,PhD us Robert Maritnez MD [facility] ORDERABLES Lin amalia Result [facility] [address] [place] [phone], [place] from Last 3 Months or Most Recently Relevant to Health Maintenance Insurance [address] [place] [address] MEDICAID [id number] MEDICARE PART A & B Care Teams Cattle Knocker Relationship Specialty Start Date End Date Charis Liz PA [address] [place] [id number] PCP - General Internal Medicine 12/11/18 William Kaplan MD [address] [place], [place] [id number] PCP - Insurance Payer PCP 02/02/23
--- OUTSIDE RECORDS SUMMARY | 2025-05-23 09:29 | XMS_ITS | Encounter Summary ---
Author Organization [employer] Address [address] [facility] [address] [place] [address] Care Team Providers Care Azure Architect Name Role Phone Brea Maciel MD Primary Care Provider [phone] Encounter Details Date Type Department Care Team ([facility] Contact Info) Description 07/22/2024 Orders Only [facility] [address] [place] [address] Provider, MD Hoa Social History Tobacco Use [...] Upcoming Encounters Date Type Department Care Team ([facility] st Contact Info) Description 06/15/2025 3:30 PM EST Office Visit [facility] [address] [place] [address] Brea Maciel MD [address] [place] [address] 07/21/2025 9:30 AM EST Office Visit [facility] [address] [place] [address] Manjinder Tucker MD [address] [place] [address] documented as of this encounter Procedures Procedure [...] documented as of this encounter Care Teams Azure Architect Relationship Specialty Start Date End Date Brea Maciel MD [address] [place] [id number] PCP - General Family Medicine 09/21/23 [facility] 10/01/24 05/03/25 documented as of this encounter
--- OUTSIDE RECORDS SUMMARY | 2025-05-23 09:29 | XMS_ITS | Encounter Summary ---
Author Organization [employer] Address [address] [facility] [address] [place] [address] Care Team Providers Care Car Sweeper Name Role Phone Brea Maciel MD Primary Care Provider [phone] Reason for Visit * Reason Comments Med Refill Encounter Details Date Type Department Care Team ([facility] Contact Info) Description 10/16/2024 Refill [facility] [address] [place] [address] Brea Maciel MD [address] [place] [address] Social History Tobacco Use Types Packs/Day Years [...] Description 06/15/2025 3:30 PM EST Office Visit [facility] [address] [place] [address] Brea Maciel MD [address] [place] [address] 07/21/2025 9:30 AM EST Office Visit [facility] [address] [place] [address] Manjinder Tucker MD [address] [place] [address] documented as of this encounter Visit Diagnoses Not on filedocumented in this encounter Additional Health Concerns Assessment Noted Time PHQ-9 Depression Total Score: 0 07/09/19 8:57 AM EST documented as of this encounter Care Teams Car Sweeper Relationship Specialty Start Date End Date Brea Maciel MD [address] [place] [phone] PCP - General Family Medicine 09/21/23 [facility] 10/01/24 05/03/25 documented as of this encounter
--- OUTSIDE RECORDS SUMMARY | 2025-05-23 09:30 | XMS_ITS | Encounter Summary ---
Author Organization [employer] Address [address] [facility] [address] [place] [address] Care Team Providers Care Cager Operator Name Role Phone Brea Maciel MD Primary Care Provider [phone] Reason for Visit * Reason Comments Med Refill Encounter Details Date Type Department Care Team ([facility] Contact Info) Description 05/01/2024 Refill [facility] [address] [place], [place] [phone] Manjinder Tucker MD [address] [place] [address] Psoriasis Social History Tobacco Use Types Packs/Day [...] Description 06/15/2025 3:30 PM EST Office Visit [facility] [address] [place] [address] Brea Maciel MD [address] [place] [address] 07/21/2025 9:30 AM EST Office Visit [facility] [address] [place] [address] Manjinder Tucker MD [address] [place] [address] documented as of this encounter Visit Diagnoses Diagnosis Psoriasis Other psoriasis documented in this encounter Additional Health Concerns Assessment Noted Time PHQ-9 Depression Total Score: 10 024 11:21 AM EDT documented as of this encounter Care Teams Cager Operator Relationship Specialty Start Date End Date Brea Maciel MD [address] [place] [id number] PCP - General Family Medicine 09/21/23 [facility] 10/01/24 05/03/25 documented as of this encounter
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
--- OUTSIDE RECORDS SUMMARY | 2025-05-23 09:30 | XMS_ITS | Encounter Summary ---
Author Organization [employer] Address [address] [facility] [address] [place] [address] Care Team Providers Care Restaurant Front Manager Name Role Phone Brea Maciel MD Primary Care Provider Reason for Visit * Reason Comments Med Refill Encounter Details Date Type Department Care Team ([facility] Contact Info) Description 07/27/2024 Refill [facility] [address] [place], [place] [phone] Manjinder Tucker MD [address] [place] [address] Psoriasis Social History Tobacco Use Types Packs/Day [...] 3:30 PM EST Office Visit [facility] [address] [place] [address] Brea Maciel MD [address] [place] [address] 07/21/2025 9:30 AM EST Office Visit [facility] [address] [place] [address] Manjinder Tucker MD [address] [place] [address] documented as of this encounter Visit Diagnoses Diagnosis Psoriasis Other psoriasis documented in this encounter Additional Health Concerns Assessment Noted Time PHQ-9 Depression Total Score: 0 07/09/19 25 8:57 AM EST documented as of this encounter Care Teams Restaurant Front Manager Relationship Specialty Start Date End Date Brea Maciel MD [address] [place] [phone] PCP - General Family Medicine 09/21/23 Home [facility] 10/01/24 05/03/25 documented as of this encounter
--- OUTSIDE RECORDS SUMMARY | 2025-05-23 09:30 | XMS_ITS | Encounter Summary ---
Author Organization [employer] Address [address] [facility] 7t [place] [address] Care Team Providers Care Rewinder Operator Helper Name Role Phone Brea Maciel MD Primary Care Provider [phone] Encounter Details Date Type Department Care Team ([facility] Contact Info) Description 05/07/2024 Orders Only [facility] [address] [place] [address] Provider, MD Hoa Social History Tobacco Use [...] Description 06/15/2025 3:30 PM EST Office Visit [facility] [address] [place] [address] Brea Maciel MD [address] [place], [place] [phone] 07/21/2025 9:30 AM EST Office Visit [facility] [address] [place] [address] Manjinder Tucker MD [address] [place], [place] [phone] documented as of this encounter Procedures Procedure [...] documented as of this encounter Care Teams Rewinder Operator Helper Relationship Specialty Start Date End Date Brea Maciel MD [address] [place] [address] PCP - General Family Medicine 09/21/23 [facility] 10/01/24 05/03/25 documented as of this encounter
--- OUTSIDE RECORDS SUMMARY | 2025-05-23 09:30 | XMS_ITS | Encounter Summary ---
Author Organization [employer] Address [address] [facility] 7 [place] [address] Care Team Providers Care Tub Operator Name Role Phone Brea Maciel MD Primary Care Provider [phone] Encounter Details Date Type Department Care Team (Late Contact Info) Description 07/24/2023 Orders Only [facility] 230 [place] [address] Shawn Mendez MD [address] [place] [address] Social History Tobacco Use Types Packs/Day Years [...] Description 06/15/2025 3:30 PM EST Office Visit [facility] 505 [place] [address] Brea Maciel MD 505 [place] [address] 07/21/2025 9:30 AM EST Office Visit [facility] [address] [place] [address] Manjinder Tucker MD 505 [place] [address] documented as of this encounter Visit Diagnoses Not on filedocumented in this encounter Care Teams Tub Operator Relationship Specialty Start Date End Date Brea Maciel MD [address] [place] [address] PCP - General Family Medicine 09/21/23 [facility] 10/01/24 05/03/25 documented as of this encounter
--- OUTSIDE RECORDS SUMMARY | 2025-05-23 09:30 | XMS_ITS | Clinical Summary ---
Author Organization [facility] Address [address] [facility] [address] [place] [address] Phone Care Team Providers Care Spanish Medical Interpreter Name Role Phone Unavailable Primary Care Provider [...] REPLACEMENT MEDICARE REPLACEMENT MEDICARE REPLACEMENT ALEXSANDER CURRY [id number] Additional Source Comments The information contained in this document represents components of the legal health record. It is not the complete legal health record.[facility]
--- OUTSIDE RECORDS SUMMARY | 2025-05-23 09:30 | XMS_ITS | Encounter Summary ---
Author Organization [employer] Address [address] [facility] [address] 7t [place] [address] Care Team Providers Care Cycle Specialist Name Role Phone Brea Maciel MD Primary Care Provider [phone] Encounter Details Date Type Department Care Team ([facility] st Contact Info) Description 02/15/2024 Telephone [facility] [address] [place] [address] Brea Maciel MD 505 [place], [place] [phone] Social History Tobacco Use Types Packs/Day Years [...] 06/15/2025 3:30 PM EST Office Visit [facility] [address] [place] [address] Brea Maciel MD 505 [place] [address] 07/21/2025 9:30 AM EST Office Visit [facility] [address] [place] [address] Manjinder Tucker MD 505 [place] [address] documented as of this encounter Visit Diagnoses Not on filedocumented in this encounter Additional Health Concerns Assessment Noted Time PHQ-9 Depression Total Score: 10 024 11:21 AM EDT documented as of this encounter Care Teams Cycle Specialist Relationship Specialty Start Date End Date Brea Maciel MD 230 [place] [address] PCP - General Family Medicine 09/21/23 Home [facility] 10/01/24 05/03/25 documented as of this encounter
--- OUTSIDE RECORDS SUMMARY | 2025-05-23 09:30 | XMS_ITS | Encounter Summary ---
Author Organization [employer] Address [address] [facility] 7t [place] [address] Care Team Providers Care Allied Health Teacher Name Role Phone Brea Maciel MD Primary Care Provider [phone] Reason for Visit * Reason Onset Date Comments Reschedule 06/02/2024 Encounter Details Date Type Department Care Team ([facility] Contact Info) Description 06/02/2024 Telephone [facility] 230 [place] [address] Brea Maciel MD 505 [place] [address] Reschedule Social History Tobacco Use Types Packs/Day [...] [facility] [address] [place] [address] Brea Maciel MD 505 [place] [address] 07/21/2025 9:30 AM EST Office Visit [facility] [address] [place] [address] Manjinder Tucker MD [address] [place] [address] documented as of this encounter Visit Diagnoses Not on filedocumented in this encounter Additional Health Concerns Assessment Noted Time PHQ-9 Depression Total Score: 10 024 11:21 AM EDT documented as of this encounter Care Teams Allied Health Teacher Relationship Specialty Start Date End Date Brea Maciel MD [address] [place] [address] PCP - General Family Medicine 09/21/23 [facility] 10/01/24 05/03/25 documented as of this encounter
--- OUTSIDE RECORDS SUMMARY | 2025-05-23 09:30 | XMS_ITS | Encounter Summary ---
Author Organization [employer] Address [address] [facility] 7t [place] [address] Care Team Providers Care Artist Agent Name Role Phone Brea Maciel MD Primary Care Provider [phone] Reason for Visit * Reason Onset Date Comments medication 01/10/2024 Encounter Details Date Type Department Care Team ([facility] st Contact Info) Description 01/10/2024 Telephone [facility] 230 [place] [address] Enrique Soria, DMD 505 [place] [address] medication Social History Tobacco Use Types Packs/Day [...] Zimmerman as referring provider and because Dr. oSria is not here today DR Patient called in earlier today because he is in pain from biopsy that was done and follow up visit. Dr. Soria is not here today. He would like a script for pain to be sent to pharmacy. Can you help patient?? * Telephone Encounter - Meredith Sánchez - 01/10/2024 10:[address] DOCTOR WADE Harrisaraceli Coronado is a 68 y.o. year old male.CALLED TODAY SAYING Stacy DIGINOSE HIM WITH CANCER .YESTERDAY AND HIS IN A LOT OF PAIN.CAN YOU SEND HIM SOMETHING FOR PAIN SHARIF Kumar . documented in this encounter Plan of Treatment Upcoming Encounters Date Type Department Care Team (Late st Contact Info) Description 06/15/2025 3:30 PM EST Office Visit [facility] [address] [place] [address] Brea Maciel MD 505 [place] [address] 07/21/2025 9:30 AM EST Office Visit [facility] [address] [place] [address] Manjinder Tucker MD [address] [place] [address] documented as of this encounter Visit Diagnoses Not on filedocumented in this encounter Care Teams Artist Agent Relationship Specialty Start Date End Date Brea Maciel MD [address] [place] [address] PCP - General Family Medicine 09/21/23 Home [facility] 10/01/24 05/03/25 documented as of this encounter
--- OUTSIDE RECORDS SUMMARY | 2025-05-23 09:30 | XMS_ITS | Encounter Summary ---
Author Organization [employer] Address [address] [facility] 7t [place] [address] Care Team Providers Care Marsh Buggy Operator Name Role Phone Brea Maciel MD Primary Care Provider [phone] Reason for Visit * Reason Onset Date Comments Durable Medical Equipment 04/11/2024 Encounter Details Date Type Department Care Team ([facility] st Contact Info) Description 04/11/2024 Telephone [facility] [address] [place] [address] Brea Maciel MD [address] [place] [address] Durable Medical Equipment Social History Tobacco Use [...] PM EST Tc from [facility] ([facility]) requesting DME supply for pt Shower Chair, Race toilet seat with hand rest, walker with seat . Callback number [phone] documented in this encounter Plan of Treatment Upcoming Encounters Date Type Department Care Team (Late st Contact Info) Description 06/15/2025 3:30 PM EST Office Visit [facility] 505 [place] [address] Brea Maciel MD [address] [place] [address] 07/21/2025 9:30 AM EST Office Visit [facility] 505 [place] [address] Manjinder Tucker MD 505 [place] [address] documented as of this encounter Visit Diagnoses Not on filedocumented in this encounter Additional Health Concerns Assessment Noted Time PHQ-9 Depression Total Score: 10 024 11:21 AM EDT documented as of this encounter Care Teams Marsh Buggy Operator Relationship Specialty Start Date End Date Brea Maciel MD [address] [place] [address] PCP - General Family Medicine 09/21/23 Home [facility] 10/01/24 05/03/25 documented as of this encounter
--- OUTSIDE RECORDS SUMMARY | 2025-05-23 09:30 | XMS_ITS | Encounter Summary ---
Author Organization [facility] Address [address] [place] [address] Care Team Providers Care Process Development Associate Name Role Phone Laura Hogue APRN Primary Care Provider Apple Villatoro DO Unavailable [phone] Encounter Details Date Type Department Care Team (Late st Contact Info) Description 08/31/2022 Scanned Document [facility] [place] [address] [place] [address] [phone] Laura Hogue APRN [address] [place], [place] [phone] Social History Tobacco Use Types Packs/Day Years [...] as of this encounter Care Teams Process Development Associate Relationship Specialty Start Date End Date Laura Hogue APRN [address] [place] [address] PCP - General Family Medicine 09/04/19 Apple Villatoro DO [address] [place] [address] Package Delivery Driver Cardiovascular Disease 04/12/23 documented as of this encounter
--- OUTSIDE RECORDS SUMMARY | 2025-05-23 09:30 | XMS_ITS | Encounter Summary ---
Author Organization [facility] Address [address] [place] [address] Care Team Providers Care Yard Stocker Name Role Phone Laura Hogue APRN Primary Care Provider Apple Villatoro DO Unavailable [phone] Encounter Details Date Type Department Care Team (Late st Contact Info) Description 03/08/2023 Scanned Document [address] [place] [phone] Provider, Generic Social History Tobacco Use Types [...] on filedocumented in this encounter Care Teams Yard Stocker Relationship Specialty Start Date End Date Laura Hogue APRN [address] [place] [address] PCP - General Family Medicine 09/04/19 Apple Villatoro DO [address] [place] [address] [employer] Shothole Driller Cardiovascular Disease 04/12/23 documented as of this encounter
--- OUTSIDE RECORDS SUMMARY | 2025-05-23 09:30 | XMS_ITS | Encounter Summary ---
Author Organization [facility] Address [address] [place] [address] Care Team Providers Care Dental Laboratory Worker Name Role Phone LennieLoriefrances ESTRADA Primary Care Provider Apple Villatoro DO Unavailable [phone] Encounter Details Date Type Department Care Team (Late st Contact Info) Description 08/31/2022 Scanned Document [facility] [address] [facility] [address] [place] [phone] Shabnam Merrill MD [address] [place] [address] Social History Tobacco Use Types Packs/Day Years [...] PATHOLOGY REPORT (08/31/2022 12:00 AM EDT) Shabnam Mrerill MD PATHOLOGY/CYTOLOGY ORDERABLES Fi nal Result documented in this encounter Visit Diagnoses Not on filedocumented in this encounter Additional Health Concerns Infection Onset Date Last Indicated Resolved Time COVID-19 Comment:(+) test 08/26/2019, resulted 08/28/2019 08/28/2019 08/28/2019 03/01/2023 7:39 AM E DT documented as of this encounter Care Teams Dental Laboratory Worker Relationship Specialty Start Date End Date Laura Hogue APRN [address] [place] [address] PCP - General Family Medicine 09/04/19 Apple Villatoro DO [address] [place] [address] Bait Man Cardiovascular Disease 04/12/23 documented as of this encounter
== END 2025-05-23 09:28 | disposition home or self-care (01) ==
LOC: HO.US 09:27
PROVIDERS: PCP Family Medicine; Visit Provider Internal Medicine
DX: R93.3 Abnormal findings on diagnostic imaging of other parts of digestive tract (principal); R74.01 Elevation of levels of liver transaminase levels
CPT/HCPCS: 76700; 76981

== ENCOUNTER → 2025-05-23 09:29 | Outpatient (BNV) | payer OTHER, SELFPAY | PROVIDERS: PCP Family Medicine; Visit Provider Radiology Diagnostic Radiology | DX: R74.01 Elevation of levels of liver transaminase levels (principal) | CPT/HCPCS: 76700 ==